=== PATIENT | female | born 1950 | race Caucasian/White ===

== ENCOUNTER → 2022-02-24 | Outpatient (CLI) | payer MEDICARE, OTHER, SELFPAY ==
--- NOTE | 2022-02-24 15:29 | MRI_ITS ---
STUDY: MRI RIGHT KNEE REASON FOR EXAM: Female, 71 years old. rule out medial meniscus tear -- has bakers cyst and medial knee pain Technologist Notes NO KNOWN INJURY. PAIN POSTERIOR KNEE AND MEDIAL SIDE OF KNEE X 3 MONTHS. XR RIGHT KNEE 12/19/21 TECHNIQUE: Standardized fat and water weighted pulse sequences were obtained in all 3 orthogonal planes. COMPARISON: X-ray of the right knee dated December 19, 2021 FINDINGS: There is complex tearing of the body of the medial meniscus and partial maceration. A large horizontal cleavage tear and diffuse intrasubstance degeneration is present across the full width of the posterior horn of the medial meniscus. A small para meniscal cyst is also present at the periphery and superior aspect of the posterior horn, originating from the torn meniscus. The anterior horn of the medial meniscus is intact. There is diffuse, high-grade near full-thickness articular cartilage loss of the medial femorotibial compartment. There is mild osteoarthritic spur formation of the medial knee compartment. Normal medial collateral ligamentous complex (MCL). Normal distal semimembranosus, gracilis and semitendinosus tendons. Normal lateral meniscus. There is diffuse, less than 50% thickness articular cartilage loss of the lateral femorotibial compartment. Normal lateral femoral condyle and tibial plateau. Normal proximal tibiofibular articulation. Normal lateral collateral (fibular) ligament. Normal popliteus tendon. Normal biceps femoris tendon. Normal anterior cruciate ligament (ACL). Normal posterior cruciate ligament (PCL). Normal congruent patellofemoral articulation. There is diffuse, less than 50% thickness articular cartilage loss of the patellofemoral compartment. Normal medial and lateral patellar retinaculum. Normal quadriceps tendon. Normal patellar tendon. Normal Hoffa''s fat pad. A small to moderate size joint effusion is present. A small to moderate size Ho''s cyst is also present measuring 5.38 cm. There is a small to moderate amount of leakage from the inferior aspect of the Ho''s cyst as well. The subcutaneous tissues around the knee joint are mildly edematous. MRI/Lower Ext Joint Only (Routine) IMPRESSION: 1. There is complex tearing of the body of the medial meniscus and partial maceration. A large horizontal cleavage tear and diffuse intrasubstance degeneration is present across the full width of the posterior horn of the medial meniscus. 2. High-grade cartilage loss in the medial compartment 3. Small to moderate size joint effusion and Ho''s cyst Electronically Signed: Tim Ibanez MD at 11:53 EDT ,
== END | disposition home or self-care (01) ==
LOC: MRI 15:29
PROVIDERS: Visit Provider Orthopaedic Surgery Sports Medicine
DX: S83.241A Other tear of medial meniscus, current injury, right knee, initial encounter (principal)
CPT/HCPCS: 73721

== ENCOUNTER 2022-04-20 08:57 | Emergency (ER) | payer MEDICARE, OTHER, SELFPAY ==
[2022-04-20 09:06] VITALS: BP 169/96; PULSE 71; RESP 18; TEMP 36.1; O2SAT 98
--- NOTE | 2022-04-20 09:37 | CT_ITS ---
INDICATION: left rib trauma EXAMINATION: CT CHEST WITHOUT CONTRAST - CT Chest W/O Contrast Injection TECHNIQUE: Helically acquired images were obtained of the chest. A radiation dose optimization technique was used for this scan. IV Contrast dosage and agent: None. COMPARISON: Limited comparison left clavicle x-ray, limited comparison MRI chest FINDINGS: LUNGS, PLEURA AND LARGE AIRWAYS: There is a pattern of areas of bronchiectasis with distal nodular densities in clusters. There is mucoid filling of a anterior aspect left lingula, superior aspect left lower lobe distal bronchial structures. There is distal inflammation and mucoid thickening and/or plugging. There are visualized there is a mucoid thickening within the right middle lobe and inferior aspect of the right lower lobe. There are clusters of nodular densities within the periphery of the right upper lobe and right middle lobe. No pleural effusion or thickening. No pneumothorax. THYROID: No thyroid lesions. HEART AND PERICARDIUM: Heart size is normal. No pericardial effusion. CORONARY ARTERIES: Coronary artery calcification VESSELS: There is partial calcification of the aorta. MEDIASTINUM AND ANAI: There is punctate calcification of the left greater than right mainstem bronchus. Esophagus is unremarkable. No hiatal hernia. UPPER ABDOMEN: No acute pathology. BONES: There is a nondisplaced acute appearing fracture of the posterior aspect of left rib 11. There is an irregular appearance of the periphery of the left rib 7. There is mild degenerative change of the thoracic spine. CT/Chest without Contrast IMPRESSION: There is a nondisplaced acute appearing fracture of the posterior aspect of left rib 11. There is an irregular appearance of the periphery of the left rib 7. There is no visualized pneumothorax. There are focal areas of bronchiectasis within the lungs with distal mucoid thickening and peribronchial inflammatory change with a nodular appearance. These are age indeterminant findings. Recommend correlation with clinical history. Potentially atypical infiltrates aspiration or potentially etiologies such as Mycobacterium avium cellulare could have this appearance. Given the multiple nodules recommend correlation with white count, recommend follow-up study as clinically appropriate or within 6 months to ensure stability. Electronically Signed: Amy Khan MD at 10:21 EST ,
--- NOTE | 2022-04-20 09:37 | ED.VIS.FALL ---
HPI HPI - Fall History of Present Illness Chief Complaint: Fall Informant: patient Narrative Narrative: 71-year-old female states that she was walking out of a store today when she slipped and fell on ice landing on her left flank. She notes pain there and anteriorly in her chest. She denies any hemoptysis. No hematuria. No loss of consciousness or other injuries noted. She has not taken anything for the pain. PFSH PFSH Medical History Alcohol use Former smoker Osteoarthritis of right knee Right knee pain Seizures Synovial cyst of popliteal space [Ho], right knee Tear of medial meniscus of right knee Wears glasses Home Medications alendronate 10 mg tablet 10 mg PO CRAFT 12/19/21 [History Last Taken Unknown] calcium carbonate 500 mg calcium (1,250 mg) chewable tablet (Calcium 500) 500 mg PO DAILY 12/19/21 [History Last Taken Unknown] glucosamine-chondroitin 500 mg-400 mg capsule 1 cap PO DAILY 12/19/21 [History Last Taken Unknown] mecobalamin (vitamin B12) 5,000 mcg disintegrating tablet 5,000 mcg PO DAILY 12/19/21 [History Last Taken Unknown] vitamins A,C,C-gaup-xeriyy 14,320 unit-226 mg-200 unit capsule (PreserVision AREDS) 1 cap PO BID 12/19/21 [History Last Taken Unknown] hydrocodone-acetaminophen 5-325mg 5mg-325mg 1 tab PO Q6H PRN PRN Pain 3 days #12 TABLETS 04/20/22 [Rx Last Taken Unknown] Allergy/AdvReac Type Severity Reaction Status Date / Time No Known Allergies Allergy Unverified 04/20/22 09:06 Family History Mother Hypertension CVA (cerebral vascular accident) Surgical History History of hand surgery Social History household members: spouse Smoking Status: Former smoker alcohol intake: current ROS ROS ED Constitutional Constitutional ED: Denies chills or weight loss Eyes Eyes: Denies change in vision or diplopia ENT ENT ED: Denies ear pain, rhinorrhea or sore throat Cardiovascular Cardiovascular: Reports chest pain; Denies orthopnea, palpitations or racing heartbeat Respiratory/Chest Respiratory/Chest: Denies cough, dyspnea or orthopnea Gastrointestinal Gastrointestinal: Denies abdominal pain, diarrhea, nausea or vomiting Genitourinary Genitourinary ED: Denies dysuria, hematuria or urinary frequency Musculoskeletal Musculoskeletal: Denies arthralgias or myalgias Integumentary Denies abscess or rash Neurologic Neurologic: Denies headache(s) or weakness Psychiatric Psychiatric: Denies anxiety, depression, suicidal ideation or suicidal thoughts Endocrine Endocrinology: Denies polydipsia, polyphagia or polyuria Allergic/Immunologic Allergic/Immunologic ED: Denies mouth swelling, tongue swelling or urticaria EXAM Physical Exam Const Vital Signs: 04/20/22 09:06 04/20/22 09:25 Temperature 97.0 F L Temperature Source Temporal Pulse Rate 71 Respiratory Rate 18 Respiratory Effort Normal Blood Pressure 169/96 H Blood Pressure Mean 120 Pulse Ox 98 Oxygen Delivery Method Room Air Positive well nourished and well developed General Appearance ED: well developed HEENT Reports normocephalic, head/scalp atraumatic and moist mucous membranes Eyes PERRL and EOMs intact bilaterally Neck no lymphadenopathy, supple and no JVD Chest Wall Chest Narrative: Patient reports tenderness over the lower 4 left ribs posteriorly. She notes tenderness anteriorly over the costochondral junction on the left lower border. No bony crepitance is felt no ecchymosis is Resp normal respiratory effort and clear to auscultation bilaterally Cardio regular rate, regular rhythm and no murmurs GI normal to inspection, nondistended, normoactive bowel sounds and non-tender Palpation: soft Back/Spine no CVA tenderness and normal ROM Extremity normal to inspection General Extremety ED: Negative for edema General Extremity: Negative for edema Neuro oriented x3 and CN's II-XII intact bilaterally Sensorium / Orientation: alert Motor Exam: strength 5/5 throughout Psych mental status grossly normal Mood & Affect: Negative for depressed or tearful Skin no rashes or lesions noted and no wounds MDM MDM MDM Narrative Medical decision making narrative: CT of the chest was obtained which demonstrates a nondisplaced fracture of rib 11 on the left. There are other findings which I would refer to the radiologist read for. These were discussed with the patient. Was recommended that she get a follow-up CT in 6 months Radiography Diagnostic Testing: Clinical Impression(s) from Imaging Studies Chest CT 04/20/22 09:37 IMPRESSION: There is a nondisplaced acute appearing fracture of the posterior aspect of left rib 11. There is an irregular appearance of the periphery of the left rib 7. There is no visualized pneumothorax. There are focal areas of bronchiectasis within the lungs with distal mucoid thickening and peribronchial inflammatory change with a nodular appearance. These are age indeterminant findings. Recommend correlation with clinical history. Potentially atypical infiltrates aspiration or potentially etiologies such as Mycobacterium avium cellulare could have this appearance. Given the multiple nodules recommend correlation with white count, recommend follow-up study as clinically appropriate or within 6 months to ensure stability. Electronically Signed: Amy Khan MD at 10:21 EST , Discharge Plan Triage Chief Complaint: Fall ED Provider: Teodoro Chris Dx/Rx/DC Orders Clinical Impression: Fall, Left rib fracture, Acute chest wall pain Instructions: ED Rib Fracture Prescriptions: New hydrocodone-acetaminophen [hydrocodone-acetaminophen] 5-325 mg tablet 1 tab PO Q6H PRN PRN (Reason: Pain) 3 Days Qty: 12 0RF No Action alendronate 10 mg tablet 10 mg PO CRAFT calcium carbonate [Calcium 500] 500 mg calcium (1,250 mg) tablet,chewable 500 mg PO DAILY glucosamine-chondroitin 500-400 mg capsule 1 cap PO DAILY Rx Instructions: give with meal/snack mecobalamin (vitamin B12) 5,000 mcg tablet,disintegrating 5,000 mcg PO DAILY PreserVision AREDS 14,320-226-200 wzba-fj-wmek capsule 1 cap PO BID Primary Care Provider: Alondra Pelletier NP Referrals: Care Physician,No Primary [Non-Staff] - Activity Restrictions/Additional Instructions: Please follow-up with primary care in 1 to 2 weeks or earlier if need be Please take a deep breath every 30 minutes to help keep pneumonia from forming You need to speak with your orthopedic surgeon to find out if this will affect your surgery date Disposition Disposition: Home, Self Care
[2022-04-20] MEDS: HYDROcodone Bitartrate/Apap 5/325 Tablet PO (10:07)
[2022-04-20 11:11] VITALS: BP 130/80; PULSE 70; RESP 16; O2SAT 98
--- NOTE | 2022-04-23 16:15 | CASEMGMT ---
INCIDENTAL FINDINGS F/U -Per [facility] report 04/20/22: CT/Chest without Contrast IMPRESSION: There is a nondisplaced acute appearing fracture of the posterior aspect of left rib 11. There is an irregular appearance of the periphery of the left rib 7. There is no visualized pneumothorax. There are focal areas of bronchiectasis within the lungs with distal mucoid thickening and peribronchial inflammatory change with a nodular appearance. These are age indeterminant findings. Recommend correlation with clinical history. Potentially atypical infiltrates aspiration or potentially etiologies such as Mycobacterium avium cellulare could have this appearance. Given the multiple nodules recommend correlation with white count, recommend follow-up study as clinically appropriate or within 6 months to ensure stability. -TC to pt to discuss the above. Pt stated she also had surgery on her knee today. Pt denied needing any assistance schedule appointments. Pt will contact PCP to schedule an appointment.
== END 2022-04-20 11:15 | disposition home or self-care (01) ==
PROVIDERS: Emergency Provider Emergency Medicine; PCP Registered Nurse; Visit Provider Emergency Medicine
DX: S22.32XA Fracture of one rib, left side, initial encounter for closed fracture (principal); Z87.891 Personal history of nicotine dependence; R07.89 Other chest pain; W00.0XXA Fall on same level due to ice and snow, initial encounter
CPT/HCPCS: 71250; 99284; A4216

== ENCOUNTER 2022-04-23 05:46 | Day surgery (SDC) | payer MEDICARE, OTHER, SELFPAY ==
[2022-04-23] VITALS (8 sets, daily range): BP systolic 128–147; BP diastolic 64–83; PULSE 80–99; RESP 18; TEMP 36.6–36.9; O2SAT 94–99; BMI 19.3
[2022-04-23] MEDS: Lactated Ringers 1,000 ML 15 ML IV (06:17)
--- NOTE | 2022-04-23 07:24 | HP.PCM_ITS ---
HPI - General HPI Narrative MICHAEL MCKEON, is a 71 F who presents FOR RIGHT KNEE scope, debridement, partial MM. Wishes to proceed. RAB discussed, right knee marked. No changes to H and P. Narcotic counselling done. post op drsg instructions give to her and support person. MR#: [id number] Acct: [id number] Name:MICHAEL HUANG Rep #: [id number] : 1950 ? ? Provider: Dr. Benjamín Green MD Age/Sex:? 71/F ? ? [place] [facility] [email or web address] Status: Signed Intake Intake Visit Reasons:?right knee Chief Complaint: right knee pain Allergies No Known Allergies Allergy (Unverified 03/03/22 14:00) Medications alendronate 10 mg tablet 10 mg PO DAILY 12/19/21 [History Confirmed 03/03/22] calcium carbonate 500 mg calcium (1,250 mg) chewable tablet (Calcium 500) 500 mg PO DAILY 12/19/21 [History Confirmed 03/03/22] glucosamine-chondroitin 500 mg-400 mg capsule 1 cap PO DAILY 12/19/21 [History Confirmed 03/03/22] mecobalamin (vitamin B12) 5,000 mcg disintegrating tablet mcg PO 12/19/21 [History Confirmed 03/03/22] vitamins A,C,X-fgpk-nupbap 14,320 unit-226 mg-200 unit capsule (PreserVision AREDS) 1 cap PO BID 12/19/21 [History Confirmed 03/03/22] PFSH Medical History?(Updated 03/03/22 @ 14:24 by Benjamín Green MD) Osteoarthritis of right knee Right knee pain Synovial cyst of popliteal space [Ho], right knee Tear of medial meniscus of right knee Family History? Mother Hypertension CVA (cerebral vascular accident) Social History? household members:? spouse Smoking Status:? Former smoker alcohol intake:? current HPI right knee Details: Parts of this documentation were recorded by a scribe, this documentation accurately reflects the service provided and the decisions made by me, Dr. Benjamín Green MD 03/03/22 1306. MICHAEL MCKEON is a 71 year old F here today for follow-up right knee MRI.? She did have some relief with a cortisone injection a little over 2 months ago now but the pain came back its mostly on the medial side aches finds that she is having some mechanical symptoms.? A little bit of soreness in the posterior medial aspect of the knee where there is some swelling consistent with a Ho's cyst. Ortho Exam General General: Yes no acute distress Neurologic: Yes alert and Yes oriented x3 Psychologic: Yes reasonable and appropriate Right Knee Skin/Wound: Yes CDI, No erythema, No ecchymosis and Yes swelling Knee ROM: Yes ROM-Flexion 0-140 Examination: Yes Med jt line tenderness, No Lat jt line tenderness, No TTP inf pole patella, No Crepitus, Yes Pain with flexion and No Pain with extention Quad Atrophy: No Patella Translation: 2 Patellar Tilt Normal: Yes Patella Grind: No KNEE: She has posterior medial swelling consistent with a Ho's cyst but her pain is mostly point tender at the medial joint line of the left knee.? There is some mild diffuse soft tissue swelling but no redness or warmth.? Perhaps a trace effusion. Left Knee Patella Translation: 2 Supplemental Info MR#:? [id number] Acct: [id number] Name:? MICHAEL MCKEON Rep #: [id number] :?? 1950 F 71 ? From:? ? Tim Ibanez MD PCP: Care Physician,No Primary ? Status: REG CLI Study: Lower Ext Joint Only (Routine) ? Date of Exam: 02/24/22 Exam# [id number] ? Ordering Dr:? Benjamín Green MD STUDY:? MRI RIGHT KNEE REASON FOR EXAM:? Female, 71 years old.? rule out medial meniscus tear -- has bakers cyst and medial knee pain Technologist Notes NO KNOWN INJURY. PAIN POSTERIOR KNEE AND MEDIAL SIDE OF KNEE X 3 MONTHS. XR RIGHT KNEE 12/19/21 TECHNIQUE:? Standardized fat and water weighted pulse sequences were obtained in all 3 orthogonal planes. COMPARISON:? X-ray of the right knee dated December 19, 2021 FINDINGS: There is complex tearing of the body of the medial meniscus and partial maceration.? A large horizontal cleavage tear and diffuse intrasubstance degeneration is present across the full width of the posterior horn of the medial meniscus.? A small para meniscal cyst is also present at the periphery and superior aspect of the posterior horn, originating from the torn meniscus.? The anterior horn of the medial meniscus is intact.? There is diffuse, high-grade near full-thickness articular cartilage loss of the medial femorotibial compartment.? There is mild osteoarthritic spur formation of the medial knee compartment. Normal medial collateral ligamentous complex (MCL).? Normal distal semimembranosus, gracilis and semitendinosus tendons. Normal lateral meniscus.? There is diffuse, less than 50% thickness articular cartilage loss of the lateral femorotibial compartment.? Normal lateral femoral condyle and tibial plateau. Normal proximal tibiofibular articulation.? Normal lateral collateral (fibular) ligament.? Normal popliteus tendon.? Normal biceps femoris tendon. Normal anterior cruciate ligament (ACL).? Normal posterior cruciate ligament (PCL). Normal congruent patellofemoral articulation.? There is diffuse, less than 50% thickness? articular cartilage loss of the patellofemoral compartment. Normal medial and lateral patellar retinaculum. Normal quadriceps tendon.? Normal patellar tendon.? Normal Hoffa''s fat pad. A small to moderate size joint effusion is present.? A small to moderate size Ho''s cyst is also present measuring 5.38 cm.? There is a small to moderate amount of leakage from the inferior aspect of the Ho''s cyst as well.? The subcutaneous tissues around the knee joint are mildly edematous. MRI/Lower Ext Joint Only (Routine) IMPRESSION: 1.? There is complex tearing of the body of the medial meniscus and partial maceration.? A large horizontal cleavage tear and diffuse intrasubstance degeneration is present across the full width of the posterior horn of the medial meniscus. 2.? High-grade cartilage loss in the medial compartment 3.? Small to moderate size joint effusion and Ho''s cyst ? Electronically Signed: Tim Ibanez MD at 11:53 EDT Reading Location ID and State: [address] [place] [address] , Service support? , ? I reviewed the radiographs and MRI findings and I concur with the report. Coding Level of Care Code Off vis,est,level 4 Diagnoses Tear of medial meniscus of right knee? S83.241A Osteoarthritis of right knee? M17.11 Right knee pain? M25.561 Synovial cyst of popliteal space [Ho], right knee? M71.21 Time Spent (min) 30 Assessment and Plan Assessment and Plan (1) Tear of medial meniscus of right knee: ?Status:?Acute ?Plan: 71-year-old female with degenerative medial meniscus tear as well as a Ho's cyst tricompartmental osteoarthritis with diffuse soft tissue swelling of the knee.? She has now tried a number of and nonsurgical means of treating this including rest ice anti-inflammatories as well as intra-articular cortisone injections.? We discussed other non surgical as well as possible surgical interventions for this which include right knee arthroscopy partial medial meniscectomy and debridement vs arthroplasty.? This may not rid her of all her pain and discomfort as I cannot formally address the osteoarthritis which is high-grade in the medial compartment with arthroscopy alone, as well as may or may not help for the Ho's cyst although doing a partial medial meniscectomy in this area and debridement may help the cyst close and prevent recurrence as well as treating the cyst however this is somewhat unreliable.? I think performing the partial medial meniscectomy may help for her mechanical symptoms and medial joint line tenderness although I have warned her that this is not a guarantee.? If she fails this next surgical option would be to consider total knee arthroplasty.? That being said although debridement and partial meniscectomy in cases of arthritis is controversial, in recent literature this may help delay the need for total knee arthroplasty by 1 to 2 years and I think is reasonable in this case.? She wished to proceed and we signed the consent form for surgery -right knee arthroscopy, partial medial meniscectomy, debridement. Pros and cons risks and benefits were discussed with the patient including but not limited to infection, pain, stiffness, bleeding, damage to surrounding structures, neurovascular injury, recurrence or retear, failure or wear of hardware or fixation, instability, fracture, deep vein thrombosis and pulmonary embolism, anesthetic risks, patient dissatisfaction, need for further surgery and other risks.? Patient understood and wished to proceed with surgery, and signed the informed consent documentation. [facility] Medical History Alcohol use Former smoker Osteoarthritis of right knee Right knee pain Seizures Synovial cyst of popliteal space [Ho], right knee Tear of medial meniscus of right knee Wears glasses Home Medications alendronate 10 mg tablet 10 mg PO CRAFT 12/19/21 [History Last Taken 04/22/22] calcium carbonate 500 mg calcium (1,250 mg) chewable tablet (Calcium 500) 500 mg PO DAILY 12/19/21 [History Last Taken 04/22/22] glucosamine-chondroitin 500 mg-400 mg capsule 1 cap PO DAILY 12/19/21 [History Last Taken 04/22/22] mecobalamin (vitamin B12) 5,000 mcg disintegrating tablet 5,000 mcg PO DAILY 12/19/21 [History Last Taken 04/22/22] vitamins A,C,H-ctzw-czsyuy 14,320 unit-226 mg-200 unit capsule (PreserVision AREDS) 1 cap PO BID 12/19/21 [History Last Taken 04/22/22] hydrocodone-acetaminophen 5-325mg 5mg-325mg 1 tab PO Q6H PRN PRN Pain 3 days #12 TABLETS 04/20/22 [Rx Last Taken Unknown] Allergy/AdvReac Type Severity Reaction Status Date / Time No Known Allergies Allergy Unverified 04/20/22 09:06 Family History Mother Hypertension CVA (cerebral vascular accident) Surgical History History of hand surgery Social History household members: spouse Smoking Status: Former smoker alcohol intake: current Vital Signs Vital Signs Vital Signs: 04/23/22 06:18 04/23/22 06:18 Temperature 98.5 F Temperature Source Temporal Pulse Rate 99 Respiratory Rate 18 Respiratory Pattern Normal Blood Pressure 135/80 H Blood Pressure Mean 98 Blood Pressure Source Monitor Blood Pressure Position Semi-Fowlers Blood Pressure Location Right Arm Pulse Ox 97 Oxygen Delivery Method Room Air Weight Weight: 99 lb Body Mass Index (BMI) 19.3
[2022-04-23] MEDS: Cefazolin 2 GM in 0.9% Normal Saline 100 ML IV (07:25)
[2022-04-23] MEDS: Epinephrine (1 mg/ml) 1 MG/ML VIAL (07:49)
--- NOTE | 2022-04-23 08:15 | PCM.OPRPT ---
Problems Associated Problem List Diagnoses (1) Tear of medial meniscus of right knee: (2) Osteoarthritis of right knee: (3) Right knee pain: Report of Operation Date of Procedure: 04/23/22 Pre-Operative Diagnosis: Right knee medial meniscus tear and osteoarthritis and Ho's cyst. Post-Operative Diagnosis: Same Surgery/Procedure Performed:: Right knee arthroscopy, debridement, partial medial meniscectomy Description of Surgical Findings:: medial meniscus degenerative tear, grade 2 OA medial compartment. Surgeon: Benjamín Green Type of Anesthesia: General and Local Anesthesiologist: Aj Jaimes Estimated Blood Loss (mL): 10 Description of Procedure: Patient was brought to the operating room theater. Placed supine on the operating room table. All bony prominences appropriately padded. SCD on the nonoperative side. 2 g IV Ancef administered prior to the start of the procedure. General anesthesia induced. Stress positioner for the patient's right lower extremity. Tourniquet applied to the right thigh appropriately padded. Right lower extremity prepped and draped in the usual sterile fashion with chlorhexidine-based prep solution allowing over 3 minutes drying time prior to draping. Preoperative timeout performed to confirm the site patient and the surgery. Began by making standard anterolateral and anteromedial arthroscopy portals. I examined the full intra-articular extent of the knee. No loose bodies gutters normal. Patellofemoral joint some mild grade 1 osteoarthritis possibly grade 2 along the trochlea undersurface of the patella normal. Minor superficial fraying along the edges gently debrided as well as a small localized approximately 5 x 5 mm area on the medial femoral condyle debrided to smooth stable margins. Grade 1-2 chondrosis of the medial compartment on both the femoral and tibial sides again gently debrided to smooth margins. There is a macerated degenerative tear along the mid aspect to posterior horn area of the medial meniscus again debrided took away about 10 to 15% overall surface area of the meniscus to stable margins and debrided along the posterior capsule near the area of the Ho's cyst. Took arthroscopy pictures throughout. Lateral compartment was entered. Cartilage was normal normal meniscus stable and solid to probing. ACL and PCL appeared normal. Arthroscope withdrawn case terminated tourniquet let down meticulous hemostasis achieved. 3-0 Monocryl to close the portals. 10 cc of quarter percent plain bupivacaine instilled around the portal sites. Skin cleaned with wet and dry dressing followed by Acacian of Steri-Strips Adaptic 4 x 4 gauze ABD pad dressings and a sterile 6 inch Shailesh bandage. Patient woken up with her general anesthetic transferred off the operating room table taken postanesthetic care unit in stable condition. All sponge and monitoring counts were correct no complications. Plan to the patient weightbearing as tolerated on crutches discharged home per day surgery criteria. Complications none Admit VTE Documentation VTE Present on Admission: No VTE Mechan Device Prophylaxis: SCD's Reason prophylaxis not ordered:: Treatment Not Indicated Procedures Musculoskeletal 20xxx-29xxx: Other Procedure See Report
--- NOTE | 2022-04-23 08:25 | EX.PCM.DISCH ---
Discharge Instructions Diet Discharge Diet: No restrictions Activity Discharge Activity: Return to Normal Activity and Use Crutches Weight Bearing Status: Weight bearing as tolerated Dressing / Incision Call your doctor if your incision/area has: Continuous Slow Oozing, Sudden Increased Bleeding, Increased Pain/ Swelling, Increased Redness, Foul Smelling Discharge and Swelling at the incision site Remove Dressing in: leave in place till F/U Cleanse incision/area with: Do not get Incision Wet Follow Up Care Please Follow Up With: Benjamín Green MD When: 2 days if able, otherwise 2 weeks Test Results: Test results from this visit will be discussed in further detail at your follow-up appointment, if applicable. Discharge Plan Admission Attending Provider: Benjamín Green Primary Care Provider: Alondra Pelletier NP Discharge Orders/Prescriptions Prescriptions: New oxycodone-acetaminophen [Endocet] 5-325 mg tablet 1 tab PO Q4H MDD 6 PRN (Reason: pain) 7 Days Qty: 20 0RF No Action alendronate 10 mg tablet 10 mg PO CRAFT calcium carbonate [Calcium 500] 500 mg calcium (1,250 mg) tablet,chewable 500 mg PO DAILY glucosamine-chondroitin 500-400 mg capsule 1 cap PO DAILY Rx Instructions: give with meal/snack mecobalamin (vitamin B12) 5,000 mcg tablet,disintegrating 5,000 mcg PO DAILY PreserVision AREDS [id number] usnv-jw-hdnn capsule 1 cap PO BID hydrocodone-acetaminophen [hydrocodone-acetaminophen] 5-325 mg tablet 1 tab PO Q6H PRN PRN (Reason: Pain) 3 Days Qty: 12 0RF Referrals / Follow Up: Benjamín Green MD [Med Staff - Active Staff] - Alondra Pelletier NP, GEOSCIENCES PROFESSOR-C [Primary Care Provider] - Disposition Disposition (needs filled in before D/C Order can be placed): Home, Self Care
== END 2022-04-23 10:44 | disposition home or self-care (01) ==
LOC: SDC 05:46 → AC 05:46
PROVIDERS: PCP Registered Nurse; Referring Provider Orthopaedic Surgery Sports Medicine; Visit Provider Orthopaedic Surgery Sports Medicine
PROC: (CPT 29870; principal; 2022-04-23 07:10)
DX: S83.231A Complex tear of medial meniscus, current injury, right knee, initial encounter (principal); M17.11 Unilateral primary osteoarthritis, right knee; M71.21 Synovial cyst of popliteal space [Baker], right knee; X58.XXXA Exposure to other specified factors, initial encounter; Z79.83 Long term (current) use of bisphosphonates; Z79.899 Other long term (current) drug therapy; Z87.891 Personal history of nicotine dependence
CPT/HCPCS: 29881; 01400; J7120; J2405

== ENCOUNTER 2022-06-04 08:00 | Outpatient (RCR) | payer MEDICARE, OTHER, SELFPAY ==
--- NOTE | 2022-05-13 08:18 | HP.PTEVAL ---
Patient's Visit Information MICHAEL MCKEON is a 71 year old F referred to Physical Therapy by Dr. Benjamín Green MD with a diagnosis of OTHER TEAR OF MEDIAL MINISCUS ,CURRENT INJURY RIGHT. Date of Evaluation: 05/13/22 Physical Therapist: Rohan Colby, PT, Cert MDT, OCS - Visit Plan Frequency: 2x /Week Duration: 4 Weeks Plan: PT INTERVETIONS ROM/FLEXABLITY RIGHT KNEE , STRENGTHENING QUADS/HAMS/HIP , AND FUNCTIONAL STRENGTHENING - Subjective This patient seen physical therapy with medial meniscectomy arthroscopic right knee. Patient had arthroscopic right knee Apr 23 . Patient was d/c DOS with crutches. Patient had MRI showed medial torn meniscus. Patient had some edema. Patient seen DR Green May 06 recommended. Patient knee meniscus tear was gradually . Patient has some difficulty with stairs and squatting/kneeling but improving. Patient sleeping good. Patient denies paresthesia/tingling. Patient has no edema. Patient condition affects QOL and function. SOCAIL: . 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 GAIT: reciprocal pattern. NEURO: denies paresthesia/tingling. AROM : supine knee flexion 0-135 degrees. MMT: ( peak force) quads 22.5,hamstrings 23.6 ,hip flexion 24.3 ,hip abduction 17.8 knee. STAIRS: alternating with rail - Special Tests R Knee Valgus - MCL: Negative R Knee Varus - LCL: Negative - Balance/Special Test Scores Lower Extremity Functional Score: 47 - Goals Goal 1:: I with HEP for right arthroscopic Goal Time Frame: 4-6 Weeks Goal 2:: Patient to [id number] % improvement with improved function with ADLS' Goal Time Frame: 4-6 Weeks Goal 3:: Patient to improve AROM symmetrical right > to left to ascend /descend alternating Goal Time Frame: 4-6 Weeks Goal 4:: Patient lorie improve peak force quads/hams by 10 to improve function Goal Time Frame: 4-6 Weeks Goal 5:: Patient to improve LFES score by 5 points to function with gait and ADLS Goal Time Frame: 4-6 Weeks Goal Time Frame: 4-6 Weeks - Rehabilitation Potential Physical Therapy Diagnosis: This patient underwent s/p right knee with decrease ROM and strength impairs function with gait and ADL's Rehabilitation Potential: Good - Anticipated Interventions Patient/Client Instruction: Educate patient on: Condition, Plan of Care For the Purpose of:: To decrease pain, To increase ROM, To improve muscle performance and motor function, To improve ability to perform ADL's, To increase tolerance to activity/condition/position, To improve ability of physical actions for home/community/work/leisure, To improve health of tissue, To decrease soft tissue restriction, To increase flexibility/ROM, To improve endurance Therapeutic Exercise to Include: Strength training, Power training, Balance training, Postural training, Flexibilty training, Active ROM Comment: QUADS/HAMS/HIP For the Purpose of:: To decrease pain, To increase ROM, To improve muscle performance and motor function, To improve ability to perform ADL's, To increase tolerance to activity/condition/position, To improve ability of physical actions for home/community/work/leisure, To improve health of tissue, To decrease soft tissue restriction, To increase flexibility/ROM, To improve endurance, To improve balance Thank you for the opportunity to evaluate your patient. For Medicare and Medicare HMO plans, please review the plan of care and approve it. It will need to be FAXED BACK to us at [phone] for Medicare purposes. For Medicare only, by signing this I certify the plan of care. Please let me know if there are questions or concerns regarding this plan of care. Physician Signature: Date:
--- NOTE | 2022-06-04 08:25 | HP.PTDCSUM ---
It has been my pleasure to treat MICHAEL MCKEON referred by Dr. Benjamín Green MD, with the diagnosis of OTHER TEAR OF MEDIAL MINISCUS ,CURRENT INJURY RIGHT for a total of 8 visit(s). Discharge Date: 06/04/22 Please see the following information for a summary of their discharge status. Subjective: Doing well. Seen DR doing well Objective/Function: MMT: 5/5. GAIT: RECIPROCAL PATTERN. AROM: 0-140 DEGREES SUPINE FLEXION Goal 1:: I with HEP for right arthroscopic Goal Progress: Goal Met Goal 2:: Patient to [id number] % improvement with improved function with ADLS' Goal Progress: Goal Met Goal 3:: Patient to improve AROM symmetrical right > to left to ascend /descend alternating Goal Progress: Goal Met Goal 4:: Patient lorie improve peak force quads/hams by 10 to improve function Goal Progress: Goal Met Goal 5:: Patient to improve LFES score by 5 points to function with gait and ADLS Goal Progress: Goal Met Plan: D/C Discharge Comments: HEP If there are questions or concerns regarding this patient's physical therapy, please feel free to call me at [phone]. Thank you for the referral of this patient. Sincerely, Rohan Colby, PT, Cert MDT, OCS Balance/Gait/Functional tests - Balance/Special Test Scores Lower Extremity Functional Score: 68
== END 2022-06-04 19:00 | disposition home or self-care (01) ==
LOC: PT 08:00
PROVIDERS: PCP Registered Nurse; Referring Provider Orthopaedic Surgery Sports Medicine; Visit Provider Orthopaedic Surgery Sports Medicine
DX: S83.241D Other tear of medial meniscus, current injury, right knee, subsequent encounter (principal)
CPT/HCPCS: 97110; 97162

== ENCOUNTER → 2023-03-17 | Outpatient (CLI) | payer MEDICARE, OTHER, SELFPAY ==
--- NOTE | 2023-03-17 14:55 | CT_ITS ---
STUDY: CT ABDOMEN AND PELVIS WITH CONTRAST REASON FOR EXAM: Female, 72 years old. Chronic bladder pain, Unspecified abdominal pain RADIATION DOSAGE (If Supplied By Facility): CTDIvol = ( 7.24 ) mGy, DLP = ( 490.83 ) mGycm TECHNIQUE: Transaxial images were obtained from the dome of the diaphragm to the symphysis pubis with oral contrast. Oral and amp; IV Readi-CAT and amp; 75mL Isovue-300 was administered. Sagittal and coronal images were reconstructed. Individualized dose optimization techniques were used for this CT. COMPARISON: None. FINDINGS: Mild increased markings in the anterior aspect of the right middle lobe as well as the lingular segment of the left upper lobe suggestive of scarring. The visualized portions of the heart are within normal limits. Normal liver. Normal gallbladder and extrahepatic biliary system. Normal spleen. Normal pancreas. Normal bilateral adrenal glands. Normal right kidney. Normal left kidney. Normal visualized stomach. Normal small intestine. There are multiple colonic diverticula consistent with diverticulosis. Large amount of fecal material is seen in the colon. The appendix is visualized and appears normal. There is diffuse atherosclerotic calcification of the abdominal aorta, without a demonstrated aneurysm. Normal inferior vena cava. Normal retroperitoneum. Normal urinary bladder. Normal abdominal wall. Disc space narrowing with spondylosis and subchondral sclerosis at the L3-L4 level. Loss of the normal lumbar lordosis. CT/Abdomen/Pelvis WITH Contrast IMPRESSION: Large amount of fecal material is seen in the colon. Electronically Signed: Renny Galeas MD at 15:25 EDT ,
[2023-03-17 15:18] LABS: CREATININE FINGERSTICK < 0.9 mg/dL (0.55-1.02); EGFR FINGERSTICK > 60.0000 mL/min (>60)
== END | disposition home or self-care (01) ==
LOC: CT 14:52
PROVIDERS: PCP Nurse Practitioner; Referring Provider Urology; Visit Provider Urology
DX: R39.82 Chronic bladder pain (principal); R10.9 Unspecified abdominal pain
CPT/HCPCS: 74177; Q9967

== ENCOUNTER → 2023-06-01 | Outpatient (CLI) | payer MEDICARE, OTHER, SELFPAY | END | disposition home or self-care (01) | LOC: LABSPEC 14:55 | PROVIDERS: PCP Nurse Practitioner; Referring Provider Otolaryngology Otolaryngology/Facial Plastic Surgery; Visit Provider Otolaryngology Otolaryngology/Facial Plastic Surgery | DX: J32.8 Other chronic sinusitis (principal) | CPT/HCPCS: 87070; 87205 ==

== ENCOUNTER → 2023-06-18 | Outpatient (CLI) | payer MEDICARE, OTHER, SELFPAY ==
--- NOTE | 2023-06-18 13:20 | CT_ITS ---
EXAM: CT MAXILLOFACIAL SINUSES WITHOUT INTRAVENOUS CONTRAST CLINICAL INDICATION: Other chronic sinusitis TECHNIQUE: Helically acquired images were obtained of the maxillofacial sinuses without intravenous contrast. This CT exam was performed using one or more of the following dose reduction techniques: automated exposure control, adjustment of the mA and/or kV according to patient size, and/or use of iterative reconstruction technique. COMPARISON: No relevant prior studies available. FINDINGS: MAXILLARY SINUSES: There is complete opacification of the left maxillary sinus. SPHENOID SINUSES: Clear. FRONTAL SINUSES: Left frontal sinus opacification. ETHMOID AIR CELLS: Left ethmoid air cell opacification. NASAL CAVITY/SEPTUM: Nasal septum is deviated to the right of midline. Nasal turbinates are unremarkable. There is obstruction of the left anterior ostiomeatal unit. ORBITS: Normal. DENTAL: Prominent periodontal changes noted to involve the right mandibular canine and first molar and left lateral mandibular incisor. CT/Sinus/Facial Bone IMPRESSION: 1. Left paranasal sinusitis. 2. Periodontal disease. Electronically Signed: Panchito Patterson MD at 14:42 EST ,
== END | disposition home or self-care (01) ==
PROVIDERS: PCP Nurse Practitioner; Referring Provider Otolaryngology Otolaryngology/Facial Plastic Surgery; Visit Provider Otolaryngology Otolaryngology/Facial Plastic Surgery
DX: J32.8 Other chronic sinusitis (principal)
CPT/HCPCS: 70486

== ENCOUNTER → 2023-08-03 | Outpatient (CLI) | payer MEDICARE, OTHER, SELFPAY ==
--- NOTE | 2023-08-03 11:28 | US_ITS ---
HISTORY: right knee bakers cyst evaluation TECHNIQUE: Routine and color duplex imaging of the right knee. 31 images. COMPARISON: MR 02/24/2022. FINDINGS: 6 mm x 1.7 cm x 2.7 cm simple cyst in the popliteal fossa, previously 1.6 x 2.7 x 5.3 cm. US/Other Unlisted US Procedure IMPRESSION: Small right Ho''s cyst, decreased in size from prior. Electronically Signed: Alma Moore MD at 11:33 EDT ,
== END | disposition home or self-care (01) ==
LOC: US 11:26
PROVIDERS: PCP Nurse Practitioner; Referring Provider Orthopaedic Surgery Sports Medicine; Visit Provider Orthopaedic Surgery Sports Medicine
DX: M71.21 Synovial cyst of popliteal space [Baker], right knee (principal)
CPT/HCPCS: 76999

== ENCOUNTER → 2023-08-28 | Outpatient (CLI) | payer MEDICARE, OTHER, SELFPAY ==
--- NOTE | 2023-08-28 08:43 | US_ITS ---
STUDY: SUPERFICIAL ULTRASOUND - POPLITEAL FOSSA. REASON FOR EXAM: Female, 72 years old. US aspiration bakers cyst of the right knee TECHNIQUE: A superficial ultrasound was performed with real-time and static silvestre-scale imaging. COMPARISON: Comparison is made with prior study dated August 03, 2023. FINDINGS: The popliteal fossa was examined with ultrasound. No fluid collection is seen at this time. US/Ext Non Vasc Limited/Soft Tiss IMPRESSION: No fluid collection is seen at this time in the popliteal fossa. Electronically Signed: Renny Galeas MD at 10:16 EDT ,
== END | disposition home or self-care (01) ==
LOC: US 08:43
PROVIDERS: PCP Nurse Practitioner; Referring Provider Orthopaedic Surgery Sports Medicine; Visit Provider Orthopaedic Surgery Sports Medicine
DX: M71.21 Synovial cyst of popliteal space [Baker], right knee (principal)
CPT/HCPCS: 76882

== ENCOUNTER → 2024-03-21 | Outpatient (CLI) | payer MEDICARE, OTHER, SELFPAY ==
--- NOTE | 2024-03-21 07:13 | EKG12_ITS ---
Test Reason : PRE OP Blood Pressure : */* mmHG Vent. Rate : 61 BPM Atrial Rate : 61 BPM P-R Int : 150 ms QRS Dur : 82 ms QT Int : 408 ms P-R-T Axes : 85 86 83 degrees QTcB Int : 410 ms Normal sinus rhythm possible Biatrial enlargement borderline Confirmed by Juan Carlos Rader ([id number]), editorial director LAY ROBERSON ([id number]) on 03/22/2024 9:13:57 AM Referred By: Buddy Shelton Confirmed By: Juan Carlos Rader
[2024-03-21 07:48] LABS: Hematocrit 43.9 % (37-47); Hemoglobin 14.5 g/dL (12.0-15.0); Mean Corpuscular Hgb 30.3 pg (27.0-32.0); Mean Corpuscular Volume 91.6 fL (81-99); Platelet Count 225 K/mm3 (150-450); RBC Distribution Width CV 13.5 % (11.6-14.6); RBC Distribution Width SD 46.3 fl (35.1-43.9); Red Blood Count 4.79 M/mm3 (4.2-5.4); White Blood Count 4.4 K/mm3 (4.4-11.0)
[2024-03-21 08:22] LABS: Anion Gap 6 (5-15); BUN 15 mg/dL (7-18); BUN/Creat Ratio 19.6 RATIO (10-20); Calcium,Total 9.1 mg/dL (8.5-10.1); Chloride 107 mmol/L (98-107); Creatinine, Serum 0.77 mg/dL (0.55-1.02); EST Glomerular Filtration Rate 79 mL/min (>60); Est Glom Filt Rate - Afr Amer 96 mL/min (>60); Glucose 94 mg/dL (74-106); Sodium Level 139 mmol/L (136-145)
== END | disposition home or self-care (01) ==
LOC: PSN 07:13
PROVIDERS: PCP Nurse Practitioner; Referring Provider Otolaryngology; Visit Provider Otolaryngology
DX: Z01.812 Encounter for preprocedural laboratory examination (principal); Z01.810 Encounter for preprocedural cardiovascular examination
CPT/HCPCS: 36415; 80048; 85027; 93005

== ENCOUNTER → 2024-05-03 | Outpatient (CLI) | payer MEDICARE, OTHER, SELFPAY ==
--- NOTE | 2024-05-03 10:00 | ETH_PTH ---
PATIENT: MICHAEL MCKEON LOC: [facility] #:[id number] AGE/SX: 73/F ROOM: RE05/03/[address]: Dr. Buddy Shelton MD : 1950 BED: DIS: 05/03/2024 SPEC #: [id number] RECD: 05/05/24 07:36 STATUS: LOU SALAZAR #: [id number] JOANNE: 05/03/24 10:[address]: Buddy Shelton DEPT: SURGICAL PATHOLOGY RECD BY: Leisa Glynn ENTERED: 05/05/24 07:48 SP TYPE: ETH TISS OTHR DR: JANNETH BABIN, SHIPPING AND RECEIVING ASSISTANT-C Tissues: Ethmoid sinus, NOS Procedures: Surgery Specimen Level IV HEADER OPERATION: Open septo rhinoplasty, maxillary antrostomy, right and left PRE-OP DIAGNOSIS: External nasal valve collapse, dynamic, hypertrophy of nasal turbinates, nasal congestion TISSUE SUBMITTED: Left nasal sinus contents MICROSCOPIC DIAGNOSIS Left nasal sinus contents: Fragments of respiratory mucosa with chronic inflammation and bone. 05/09/2024 MICROSCOPIC DESCRIPTION Slides are reviewed. GROSS DESCRIPTION Received in fixative is one container labeled with the patient's name and designated Left nasal sinus contents. The specimen consists of multiple irregular fragments of soft tissue and cartilage and bone that in aggregate measure 2.0 x 1.5 x 0.3 cm. The specimen is totally submitted in one cassette after decalcification. 05/05/2024 TC:3 CPT:49978, 57337
== END | disposition home or self-care (01) ==
LOC: LABSPEC 05-05 08:07
PROVIDERS: PCP Nurse Practitioner; Referring Provider Otolaryngology; Visit Provider Otolaryngology
DX: R09.81 Nasal congestion (principal); J34.3 Hypertrophy of nasal turbinates
CPT/HCPCS: 88305

== ENCOUNTER 2024-06-01 05:20 | Day surgery (SDC) | payer MEDICARE, OTHER, SELFPAY ==
--- NOTE | 2024-05-30 09:18 | PAT.ANESEVAL ---
Pre-Assessment Diagnosis/Proposed Procedure Planned Operative Procedure(s): CSCOPE Anesthesia History Anesthesia History - punch press feeder: Anesthesia History - punch press feeder Hx Hospitalization No 05/30/24 08:28 Any Problems With Anesthesia Yes: PONV 05/30/24 08:28 Cholinesterase deficiency No 05/30/24 08:28 You/Your Family Experience No 05/30/24 08:28 fever (hyperthermia) with Relationship Recent Exposure to Contagious No 07/29/23 09:51 Disease Does patient have nerve No 05/30/24 08:28 stimulator Patient instructed to have device shut off --Does patient have Pacemaker or ICD? When Was Last Pacemaker Check QUESTION #4 FULL TEXT: You/Your Family Experience fever (hyperthermia) with Anesthesia Last Oral Intake Last Oral intake: Last Oral Intake NPO since Meds taken in AM with sips of water? Meds patient instructed to take am of surgery PONV PONV - punch press feeder: PONV - punch press feeder Female Yes 05/30/24 08:28 HX of Motion Sickness Yes 05/30/24 08:28 HX of N/V After Surgery Yes 05/30/24 08:28 Non-Smoker Yes 05/30/24 08:28 Duration of Surgery greater No 05/30/24 08:28 than 60 minutes Number of Risk Factors 4 05/30/24 08:28 PONV Score Severe Risk 05/30/24 08:28 Height & Weight Height & Weight: Anesthesia: Height & Weight Height 5 ft 08/06/23 14:32 Respiratory Assessment Respiratory Assessment - punch press feeder: Respiratory Tract Infection Hx - punch press feeder Hx Respiratory Tract Infection No 05/30/24 08:28 STOP Sleep Apnea STOP Sleep Apnea - punch press feeder: STOP Sleep Apnea - punch press feeder Hx Hypertension No 05/30/24 08:28 Hx Sleep Apnea No 05/30/24 08:28 CPAP BIPAP Do you snore loudly (louder No 05/30/24 08:28 than talking or can be heard Do you often feel tired/ No 05/30/24 08:28 fatigued/ sleepy during daytime? Has anyone observed you stop No 05/30/24 08:28 breathing during sleep? STOP Results Negative 05/30/24 08:28 QUESTION #5 FULL TEXT : Do you snore loudly (louder than talking or can be heard through closed doors)? Tobacco Use History Tobacco Use History - punch press feeder: Tobacco Use History - punch press feeder Tobacco Use Smoking Status Former smoker 05/30/24 08:28 Hx Tobacco Use Yes 05/30/24 08:28 Years Smoking Packs Smoked per Day Smoking Cessation Date was No - quit smoking greater 05/30/24 08:28 within the last 15 years than 15 years ago Hx Smoking Cessation Date 05/18/79 05/30/24 08:28 Hx Smoking Cessation Counseling Hematologic Medial History Hematologic Hx - punch press feeder: Hematologic Medical Hx - filler block inserter remover Hx of Blood Transfusion No 05/30/24 08:28 Hx of Transfusion in last 3 No 05/30/24 08:28 Months Date of Last Transfusion (if within last 3 months) Ever experience any problems No 05/30/24 08:28 with transfusion(s)? Specify any problems Hx of Preganancy in last 3 N/A 05/30/24 08:28 Months Nurse Filling Out Transfusion NBUCHER 05/30/24 08:28 & Questions: Date: 05/30/24 05/30/24 08:28 Time: 08:31 05/30/24 08:28 Patient unable to answer at this time (ie. confused, unrespo /Reproduction History /Reproductive History - punch press feeder: /Reproductive Hx- punch press feeder Hx Now No 05/30/24 08:28 Gestational Age (in weeks): EDC: Hx Hx Para Hx Section SAB No 05/30/24 08:28 [facility] Medical History (Updated 05/30/24 @ 08:37 by Adore Watson) Post-menopausal Arthritis PONV (postoperative nausea and vomiting) Leg cramps Wears glasses Alcohol use Seizures Former smoker Synovial cyst of popliteal space [Ho], right knee Tear of medial meniscus of right knee Osteoarthritis of right knee Right knee pain Home Medications ?Medication ?Instructions ?Recorded ?Last Taken ?Type calcium carbonate (Calcium 500) 500 mg PO DAILY 12/19/21 04/22/22 History mecobalamin (vitamin B12) 5,000 5,000 mcg PO DAILY 12/19/21 04/22/22 History mcg disintegrating tablet vitamins A,C,U-zoys-eolbfv 4,296 1 cap PO BID 12/19/21 04/22/22 History mcg-226 mg-90 mg capsule (PreserVision AREDS) alendronate 10 mg tablet 10 mg PO .once a week 03/31/24 Unknown History dicyclomine 10 mg capsule 10 mg PO TID PRN abdominal pain 04/25/24 Unknown Rx #60 caps magnesium 200 mg tablet 200 mg PO DAILY 05/30/24 Unknown History Allergy/AdvReac Type Severity Reaction Status Date / Time No Known Allergies Allergy Verified 05/30/24 08:26 Family History Mother Hypertension CVA (cerebral vascular accident) Surgical History (Updated 05/30/24 @ 08:37 by Adore Watson) History of rhinoplasty (05/03/24) History of partial hysterectomy (~10/2023) History of arthroplasty of right knee (~2021) History of hand surgery Social History household members: spouse Smoking Status: Former smoker alcohol intake: current Audit: Pertinent Findings Pertinent Findings EKG Perinent findings: 03/21/2024 normal sinus rhythm 61 bpm possible bilateral atrial enlargement Recommendation Anesthesia Recommendation Anesthesia recommendation: OPTIMIZED for anesthesia
[2024-06-01] VITALS (7 sets, daily range): BP systolic 113–138; BP diastolic 77–81; PULSE 74–90; RESP 16–18; TEMP 36.2–36.8; O2SAT 98–100; BMI 20.2
--- NOTE | 2024-06-01 06:30 | COLBX_PTH ---
PATIENT: MICHAEL MCKEON LOC: EN U#:[id number] AGE/SX: 73/F ROOM: RE06/01/[address]: Dr. Dhiraj King DO : 1950 BED: DIS: 06/01/2024 SPEC #: [id number] RECD: 06/01/24 10:41 STATUS: LOU REQ #: [id number] JOANNE: 06/01/24 06:[address]: Dhiraj King DEPT: SURGICAL PATHOLOGY RECD BY: Margot Zimmerman ENTERED: 06/01/24 11:20 SP TYPE: COLON BX OTHR DR: JANNETH BABIN, NE Manrique Tissues: Ileum, NOS Procedures: Surgery Specimen Level IV HEADER OPERATION: Colonoscopy biopsy PRE-OP DIAGNOSIS: Abdominal pain, change in bowel habits, constipation TISSUE SUBMITTED: Terminal ileum biopsy MICROSCOPIC DIAGNOSIS Terminal ileum, biopsy: Fragments of small intestinal mucosa, no pathologic diagnosis. SJ.mr 06/02/2024 MICROSCOPIC DESCRIPTION Slides are reviewed. GROSS DESCRIPTION Received in fixative is one container labeled with the patient's name and designated Terminal ileum biopsy. The specimen consists of multiple irregular fragments of light rodriguez soft tissue that in aggregate measure 1.4 x 0.4 x 0.2 cm. The specimen is totally submitted in one cassette. DAVIAN.mr 06/01/2024 TC:4 CPT:64534
--- NOTE | 2024-06-01 06:42 | PRE.ANES_ITS ---
ASA Classification* ASA Classification ASA Classification: 2 Assessment & Plan Anesthesia* Anesthesia Assessment Anesthesia Assessment: Discussed sedation and/or anesthesia options, risks, benefits, and alternatives with patient/parents/legal guardian/POA. Questions invited. The patient/parents/legal guardian/POA seems to understand and agrees to proceed with anesthesia plan. Reviewed the physical assessment, medical history, allergy history and patient home medications list prior to surgery/procedure/anesthetic and documented any changes. Performed airway and anesthesia risk assessments. Anesthesia Type Anesthesia Type: MAC Anesthesia Focused Assessment* Temperature: 98.0 F Pulse Rate: 90 Blood Pressure: 138/81 Respiratory Rate: 18 Pulse Ox: 99 Airway Assessment Mouth opens: >3 cm Mallampati Score: II Focused Labs Anesthesia Preop lab: CBC WBC 4.4 K/mm3 (4.4-11.0) 03/21/24 07:35 RBC 4.79 M/mm3 (4.2-5.4) 03/21/24 07:35 Hgb 14.5 g/dL (12.0-15.0) 03/21/24 07:35 Hct 43.9 % (37-47) 03/21/24 07:35 Plt Count 225 K/mm3 (150-450) 03/21/24 07:35 CHEMISTRY Potassium 4.0 mmol/L (3.5-5.1) 03/21/24 07:35 Sodium 139 mmol/L (136-145) 03/21/24 07:35 BUN 15 mg/dL (7-18) 03/21/24 07:35 Creatinine 0.77 mg/dL (0.55-1.02) 03/21/24 07:35 Glucose 94 mg/dL (74-106) 03/21/24 07:35 COAG Pre-Assessment Diagnosis/Proposed Procedure Planned Operative Procedure(s): CSCOPE Anesthesia History 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 When Was Last Pacemaker Check QUESTION #4 FULL TEXT: You/Your Family Experience fever (hyperthermia) with Anesthesia Last Oral Intake Last Oral intake: Last Oral Intake NPO since 02:30 06/01/24 05:52 Meds taken in AM with sips of No 06/01/24 05:52 water? Meds patient instructed to take am of surgery PONV PONV - software technician: PONV - software technician Female Yes 05/30/24 08:28 HX of Motion Sickness Yes 05/30/24 08:28 HX of N/V After Surgery Yes 05/30/24 08:28 Non-Smoker Yes 05/30/24 08:28 Duration of Surgery greater No 05/30/24 08:28 than 60 minutes Number of Risk Factors 4 05/30/24 08:28 PONV Score Severe Risk 05/30/24 08:28 Height & Weight Height & Weight: Anesthesia: Height & Weight Height 5 ft 06/01/24 05:52 Weight: 47 kg 06/01/24 05:52 Body Mass Index (BMI) 20.2 06/01/24 05:52 Respiratory Assessment Respiratory Assessment - software technician: Respiratory Tract Infection Hx - software technician Hx Respiratory Tract Infection No 05/30/24 08:28 STOP Sleep Apnea STOP Sleep Apnea - software technician: STOP Sleep Apnea - software technician Hx Hypertension No 05/30/24 08:28 Hx Sleep Apnea No 05/30/24 08:28 CPAP BIPAP Do you snore loudly (louder No 05/30/24 08:28 than talking or can be heard Do you often feel tired/ No 05/30/24 08:28 fatigued/ sleepy during daytime? Has anyone observed you stop No 05/30/24 08:28 breathing during sleep? STOP Results Negative 05/30/24 08:28 QUESTION #5 FULL TEXT : Do you snore loudly (louder than talking or can be heard through closed doors)? 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 Specify any problems Hx of Preganancy in last 3 N/A 05/30/24 08:28 Months Nurse Filling Out Transfusion NBUCHER 05/30/24 08:28 & Questions: Date: 05/30/24 05/30/24 08:28 Time: 08:31 05/30/24 08:28 Patient unable to answer at this time (ie. confused, unrespo /Reproduction History /Reproductive History - software technician: /Reproductive Hx- software technician Hx Now No 05/30/24 08:28 Gestational Age (in weeks): EDC: Hx Hx Para Hx Section SAB No 05/30/24 08:28 PFSH Medical History Post-menopausal Arthritis PONV (postoperative nausea and vomiting) Leg cramps Wears glasses Alcohol use Seizures Former smoker Synovial cyst of popliteal space [Ho], right knee Tear of medial meniscus of right knee Osteoarthritis of right knee Right knee pain Home Medications ?Medication ?Instructions ?Recorded ?Last Taken ?Type calcium carbonate (Calcium 500) 500 mg PO DAILY 12/19/21 04/22/22 History mecobalamin (vitamin B12) 5,000 5,000 mcg PO DAILY 12/19/21 04/22/22 History mcg disintegrating tablet vitamins A,C,I-bvfn-xqkrkx 4,296 1 cap PO BID 12/19/21 04/22/22 History mcg-226 mg-90 mg capsule (PreserVision AREDS) alendronate 10 mg tablet 10 mg PO .once a week 03/31/24 Unknown History dicyclomine 10 mg capsule 10 mg PO TID PRN abdominal pain 04/25/24 Unknown Rx #60 caps magnesium 200 mg tablet 200 mg PO DAILY 05/30/24 Unknown History Allergy/AdvReac Type Severity Reaction Status Date / Time No Known Allergies Allergy Verified 06/01/24 05:51 Family History Mother Hypertension CVA (cerebral vascular accident) Surgical History History of rhinoplasty (05/03/24) History of partial hysterectomy (~10/2023) History of arthroplasty of right knee (~2021) History of hand surgery Social History household members: spouse Smoking Status: Former smoker alcohol intake: current Review of Systems (Anesthesia) ROS Narrative System reviewed and no additional complaints, except as documented.
--- NOTE | 2024-06-01 06:56 | PCM.HP.STD ---
HPI - General General Date of Admission: 06/01/24 Date of Service: 06/01/24 Chief Complaint: abdominal pain HPI Narrative MICHAEL MCKEON, is a 73 F who presents Chief Complaint: bowel changes and abdominal discomfort Details: 73y/o female presents for consultation of abdominal pain. CBC and BMP were unremarkable 03/21/2024. CT A&P 03/17/2023 Large amount of fecal material is seen in the colon. COLONOSCOPY last performed 6 years ago per patient - she reports this was negative - denies any family h/o colon CA - she complains of 8/10 abdominal pain, intermittent x1 year, she describes this as an aching pain, reports getting up and moving around helps alleviate the pain - does not eat until the pain resolves - wakes her in the morning and lingers for a few hours - she is having a BM daily - bit now having smaller more frequent stools instead of 1 formed stool - denies any dietary or medication changes - denies any weight loss - she had bladder surgery October 2023 for bladder prolapse, also had a partial hysterctomy ay this time - reports taking Mag Citrate prior to surgery took 5h to work - denies any HB or indigestion - denies any N/V - denies any bleeding - Miralax for 10 days caused fecal leakage and did not help with frequency of stools or quantity B - bread and coffee L - salad with a protein, cottage cheese or fruit D - starch, protein and vegetable sometimes - she reports drinking plenty of water \ [facility] Medical History Post-menopausal Arthritis PONV (postoperative nausea and vomiting) Leg cramps Wears glasses Alcohol use Seizures Former smoker Synovial cyst of popliteal space [Ho], right knee Tear of medial meniscus of right knee Osteoarthritis of right knee Right knee pain Home Medications ?Medication ?Instructions ?Recorded ?Last Taken ?Type calcium carbonate (Calcium 500) 500 mg PO DAILY 12/19/21 04/22/22 History mecobalamin (vitamin B12) 5,000 5,000 mcg PO DAILY 12/19/21 04/22/22 History mcg disintegrating tablet vitamins A,C,Y-kyxe-sjanwj 4,296 1 cap PO BID 12/19/21 04/22/22 History mcg-226 mg-90 mg capsule (PreserVision AREDS) alendronate 10 mg tablet 10 mg PO .once a week 03/31/24 Unknown History dicyclomine 10 mg capsule 10 mg PO TID PRN abdominal pain 04/25/24 Unknown Rx #60 caps magnesium 200 mg tablet 200 mg PO DAILY 05/30/24 Unknown History Allergy/AdvReac Type Severity Reaction Status Date / Time No Known Allergies Allergy Verified 06/01/24 05:51 Family History Mother Hypertension CVA (cerebral vascular accident) Surgical History History of rhinoplasty (05/03/24) History of partial hysterectomy (~10/2023) History of arthroplasty of right knee (~2021) History of hand surgery Social History household members: spouse Smoking Status: Former smoker alcohol intake: current ROS Constitutional Constitutional: Denies fatigue, fever(s), poor appetite, weight gain or weight loss Gastrointestinal Gastrointestinal: Denies belching, bloating, change in bowel habits, change in stool character, chewing difficulty, coffee ground emesis, constipation, cramping, diarrhea, dyspepsia, dysphagia, early satiety, excessive flatus, fecal incontinence, heartburn, hematemesis, hematochezia, hemorrhoids, loose stools, melena, nausea, odynophagia, rectal bleeding, tenesmus, vomiting or weight changes Vital Signs Vital Signs Vital Signs: 06/01/24 05:52 06/01/24 05:52 06/01/24 06:42 Temperature 98.0 F 98.0 F Temperature Source Temporal Pulse Rate 90 90 Respiratory Rate 18 18 Respiratory Pattern Normal Blood Pressure 138/81 H 138/81 H Blood Pressure Mean 100 Blood Pressure Source Monitor Blood Pressure Position Sitting Blood Pressure Location Left Arm Pulse Ox 99 99 Oxygen Delivery Method Room Air Weight Weight: 103 lb 9.876 oz Body Mass Index (BMI) 20.2 Physical Exam Const alert, oriented x3, no apparent distress and healthy appearing General Appearance: cooperative GI normal to inspection, nondistended, normoactive bowel sounds, soft to palpation, non-tender and non-distended Percussion: normal to percussion Rectal Exam: deferred Assessment & Plan Assessment/Plan (1) Constipation: QUALIFIERS: Constipation type: unspecified constipation type Qualified Code(s): K59.00 - Constipation, unspecified (2) Change in bowel habits: PLAN: Plan Assessment and Plan Assessment and Plan (1) Abdominal pain: Qualifiers: Abdominal location: generalized Qualified Code(s): R10.84 - Generalized abdominal pain (2) Change in bowel habits: Status: Acute (3) Constipation: Status: Acute Qualifiers: Constipation type: unspecified constipation type Qualified Code(s): K59.00 - Constipation, unspecified Plan 73y/o female presents for consultation of abdominal pain. CBC and BMP were unremarkable 03/21/2024. CT completed one year ago was consistent with constipation. She reports a change in bowel habits with a decrease in frequency of stools over the past year. She complains of lower abdominal pain x1 year, worse over the past 6 months. Stools have changed to several small hard pieces daily. She denies any bleeding or weight loss. Denies any dietary or medication changes. I have recommended a high fiber diet with the addition of Benefiber and magnesium supplement daily. She will schedule colonoscopy and follow-up via portal or telephone in 2 weeks with symptoms update. Patient Instructions: 1. Benefiber 2 tsp once a day in 8 ounces of water after breakfast 2. Magnesium supplement twice a day 3. Prunes 2-3 a day 4. High fiber diet 5. Call in 2 weeks with symptom update 6. Colonoscopy Plan Details Follow Up: 3 Months
--- NOTE | 2024-06-01 07:26 | OP.COLON_ITS ---
Patient Name: Phyllis Sanchez Procedure Date: 06/01/2024 6:41 AM Date of : 1950 Age: 73 Procedure: Colonoscopy Indications: Generalized abdominal pain Providers: Dhiraj King DO Referring MD: Christina Martin Np-sai Medicines: Monitored Anesthesia Care Patient Profile: This is a 73 year old female. Refer to note in patient chart for documentation of history and physical. Last Colonoscopy: 10 years ago. Complications: No immediate complications. Procedure: Pre-Anesthesia Assessment: - Prior to the procedure, a History and Physical was performed, and patient medications and allergies were reviewed. The patient is competent. The risks and benefits of the procedure and the sedation options and risks were discussed with the patient. All questions were answered and informed consent was obtained. Patient identification and proposed procedure were verified by the physician in the pre-procedure area. Mental Status Examination: alert and oriented. Airway Examination: normal oropharyngeal airway and neck mobility. Respiratory Examination: clear to auscultation. CV Examination: normal. Prophylactic Antibiotics: The patient does not require prophylactic antibiotics. Prior Anticoagulants: The patient has taken no anticoagulant or antiplatelet agents except for NSAID medication. ASA Grade Assessment: II - A patient with mild systemic disease. After reviewing the risks and benefits, the patient was deemed in satisfactory condition to undergo the procedure. The anesthesia plan was to use monitored anesthesia care (MAC). Immediately prior to administration of medications, the patient was re-assessed for adequacy to receive sedatives. The heart rate, respiratory rate, oxygen saturations, blood pressure, adequacy of pulmonary ventilation, and response to care were monitored throughout the procedure. The physical status of the patient was re-assessed after the procedure. After I obtained informed consent, the scope was passed under direct vision. Throughout the procedure, the patient's blood pressure, pulse, and oxygen saturations were monitored continuously. The colonoscope was introduced through the anus and advanced to the cecum, identified by appendiceal orifice and ileocecal valve. The colonoscopy was performed without difficulty. The patient tolerated the procedure well. The quality of the bowel preparation was adequate. The terminal ileum, ileocecal valve, appendiceal orifice, and rectum were photographed. Scope In: 7:06:22 AM Scope Out: 7:20:21 AM Total Procedure Duration Time 0 hours 13 minutes 59 seconds Findings: The perianal and digital rectal examinations were normal. Retroflexion was not performed because of the patient's very small rectum. Multiple small-mouthed diverticula were found in the recto-sigmoid colon, sigmoid colon, hepatic flexure, ascending colon and cecum. Patchy mild inflammation characterized by congestion (edema) was found in the distal ileum and in the terminal ileum. Biopsies were taken with a cold forceps for histology. Verification of patient identification for the specimen was done. Estimated blood loss was minimal. Impression: - Diverticulosis in the recto-sigmoid colon, in the sigmoid colon, at the hepatic flexure, in the ascending colon and in the cecum. - Mild inflammation was found in the ileum secondary to ileitis. Biopsied. Recommendation: - Discharge patient to home. - Resume previous diet. - Continue present medications. - Await pathology results. - Repeat colonoscopy in 10 years for screening purposes. Procedure Code(s): --- Professional --- 59576, Colonoscopy, flexible; with biopsy, single or multiple CPT copyright 2021 [employer] [place] [employer]. All rights reserved. The codes documented in this report are preliminary and upon fuel cell test engineer review may be revised to meet current compliance requirements. Dhiraj King DO 06/01/2024 7:25:52 AM This report has been signed electronically. Number of Addenda: 0 Note Initiated On: 06/01/2024 6:41 AM
--- NOTE | 2024-06-01 07:27 | OP.CCLET_ITS ---
06/01/2024 Phillip Burleson Re : Colonoscopy procedure for Phyllis Sanchez Dear Veronica This procedure was performed on Saturday, June 01, 2024. My impressions and recommendations are as follows: Impressions : - Diverticulosis in the recto-sigmoid colon, in the sigmoid colon, at the hepatic flexure, in the ascending colon and in the cecum. - Mild inflammation was found in the ileum secondary to ileitis. Biopsied. Recommendations : - Discharge patient to home. - Resume previous diet. - Continue present medications. - Await pathology results. - Repeat colonoscopy in 10 years for screening purposes. My findings are described in the full procedure note, which is enclosed. If I can be of further assistance, please feel free to contact me at . Sincerely, Dhiraj Friend, 06/01/2024 7:25:52 AM This report has been signed electronically.
--- NOTE | 2024-06-01 07:32 | PCM.POST.ANE ---
Anesthesia: Postop Eval I Current Vital Signs Temperature: 97.1 F Pulse Rate: 77 Blood Pressure: 113/77 Respiratory Rate: 16 Pulse Ox: 100 Oxygen Delivery Method: Room Air Assessment Airway patent: Yes Spontaneous unlabored respirations: Yes Mental status: Awake and Calm nausea: No Vomiting: No Anesthesia Complication: No Fluid Hydration Crystalloid volume administer (ml): 40 Total IV fluid infused: 40 Progress Note Anesthesia document: Postop Eval 1 completed: Yes
--- NOTE | 2024-06-01 08:45 | PCM.POSTANE2 ---
Anesthesia Postop Eval I Sum Postop Eval Completion status Anesthesia document: Postop Eval 1 completed: Yes Anesthesia Postop Eval I Summary Anesthesia Postop Eval I Summary: Anesthesia Postop Eval I: Assessment Summary Airway patent Yes 06/01/24 07:33 [email or web address] Spontaneous unlabored Yes 06/01/24 07:33 [email or web address] respirations Mental status Awake,Calm 06/01/24 07:33 [email or web address] nausea No 06/01/24 07:33 [email or web address] Vomiting No 06/01/24 07:33 [email or web address] Anesthesia Postop Eval I: Fluid Summary Crystalloid volume administer 40 06/01/24 07:33 [email or web address] (ml) Colloids volume administered ( ml) Blood Product volume administered (ml) Total IV fluid infused 40 06/01/24 07:33 [email or web address] Anesthesia Postop Eval I: Summary Notes Anesthesia Complication No 06/01/24 07:33 [email or web address] Anesthesia Complication Comment: Post-operative progress note Anesthesia: Postop Eval II Evaluation Mental status: Awake Pain Level: 0 nausea: No Vomiting: No
== END 2024-06-01 07:55 | disposition home or self-care (01) ==
LOC: EN 05:21 → AC 05:22
PROVIDERS: PCP Nurse Practitioner; Referring Provider Nurse Practitioner; Visit Provider Internal Medicine Gastroenterology
PROC: 0DJD8ZZ Inspection of Lower Intestinal Tract, Via Natural or Artificial Opening Endoscopic (ICD-10-PCS; CPT 45378; principal; 2024-06-01 06:25)
DX: R10.84 Generalized abdominal pain (principal); K57.30 Diverticulosis of large intestine without perforation or abscess without bleeding; Z79.83 Long term (current) use of bisphosphonates; Z87.891 Personal history of nicotine dependence; Z90.710 Acquired absence of both cervix and uterus; K59.00 Constipation, unspecified
CPT/HCPCS: 45380; 88305; A4216; J2405

== ENCOUNTER → 2024-10-14 | Outpatient (CLI) | payer MEDICARE, OTHER, SELFPAY ==
--- NOTE | 2024-10-14 06:52 | CT_ITS ---
PROCEDURE: ABDOMEN/PELVIS WITH CONTRAST 10/14/2024 REASON FOR EXAM: LOWER ABDOMINAL PAIN TECHNIQUE: Abdomen and pelvis CT with intravenous contrast. Coronal and Sagittal reconstruction series were provided. PATIENT PREPARATION: Per protocol Enteric contrast was administered. CONTRAST: Isovue 370 VOLUME: 100 mL. One or more dose reduction techniques were used (e.g., Automated exposure control, adjustment of the mA and/or kV according to patient size, use of iterative reconstruction technique. RADIATION DOSE SUMMARY: CTDlvol: 16.62+ 5.50 mGy DLP: 260.96 mGycm COMPARISON: 03/17/2023. FINDINGS: Similar densities of the lung bases which may represent scar. The peripheral soft tissues are unremarkable. Degenerative changes of the spine most pronounced at L3-4. Mild to moderate atherosclerosis. Normal caliber abdominal aorta. No suspicious lymphadenopathy. The liver, gallbladder, pancreas, spleen, and adrenal glands are unremarkable. Symmetric enhancement of the bilateral kidneys. No nephrolithiasis. No hydroureteronephrosis. Left kidney simple renal sinus cysts. Possible small lesion abutting the posteroinferior wall of the urinary bladder (coronal image 56 of 97). Normal caliber large and small bowel. Normal caliber appendix. No surrounding inflammatory changes. Dense colonic stool. Borderline gastric wall thickening. CT/Abdomen/Pelvis WITH Contrast IMPRESSION: Possible urinary bladder lesion. Further characterization with ultrasound is r ecommended. Borderline gastric wall thickening which may be due to underdistention or gastr itis. Constipation. Reading Location: [place] [id number]
== END | disposition home or self-care (01) ==
LOC: CT 06:51
PROVIDERS: PCP Nurse Practitioner; Referring Provider Nurse Practitioner Acute Care; Visit Provider Nurse Practitioner Acute Care
DX: R10.33 Periumbilical pain (principal); K59.00 Constipation, unspecified
CPT/HCPCS: 74177; Q9967

== ENCOUNTER 2024-11-08 13:05 | Day surgery (SDC) | payer MEDICARE, OTHER, SELFPAY ==
[2024-11-08] VITALS (7 sets, daily range): BP systolic 122–141; BP diastolic 70–81; PULSE 68–89; RESP 16; TEMP 36.4–37.2; O2SAT 98–100; BMI 20.5
--- NOTE | 2024-11-08 13:19 | PCM.HP.STD ---
HPI - General General Date of Admission: 11/08/24 Date of Service: 11/08/24 Chief Complaint: Abdominal pain HPI Narrative 73-year-old female presents for follow-up of abdominal pain and constipation. She was last seen in the office on 07/04/2024 and had complaints of intermittent, deep, sharp abdominal pain that would wake her early in the morning at least 5 days a week. She had reported pain dissipated with getting up and moving or a bowel movement. She was asked to start Linzess 145 mcg once daily. She reports improvement in bowel frequency with Linzess but no improvement in abdominal pain. In addition OOP cost was $500. She is presently taking Benefiber 1-2 times a day and magnesium OTC supplement twice daily. She has a bowel movement daily but reports stools are small. She does endorse minimal improvement in lower abdominal discomfort with a bowel movement. She denies any weight loss or bleeding. I have ordered a CT scan for further evaluation of abdominal pain and she will try Ibsrela 50 mg twice daily in the interim. Patient Instructions: Ibsrela 50mg BID Complete CT Hold Magnesium when you start Ibsrela, may add back if needed Will enroll in PAT for Ibsrela if not covered benefit COLON 06/01/2024 - TI biopsy unremarkable - Diverticulosis in the recto-sigmoid colon, in the sigmoid colon, at the hepatic flexure, in the ascending colon and in the cecum. - Mild inflammation was found in the ileum secondary to ileitis. Biopsied. 10/14/[address] scan reveals constipation, possible bladder lesion and borderline gastric wall thickening (possibly related to under distension of the stomach). - this is a change from 2022 - partial hysterectomy, oophorectomy, bladder suspension 2023 - Bulkamid to prevent urinary leakage 2023 - UroGYN Dr. Hanley - [facility] - she reports about 10 days ago she switched back to fiber and magnesium --- reports she was taking Magnesium and Fiber when she had CT completed 10/14 which revealed constipation - with Ibsrela once daily or 1/2 tablet daily she had uncontrolled diarrhea - she is taking psyllium powder 1tbsp BID - Magnesium capsules one capsule daily - she reports with the magnesium and fiber she has a BM 1-2x a day, small stools, soft - denies any diarrhea - denies any weight loss - Linzess was too expensive and caused diarrhea - reports she did take Linzess for two weeks - she did not take Ibsrela daily for two weeks, unable to tolerate diarrhea - discussed likely overflow - she has increased her activity - water intake is good - denies any HB, indigestion, N/V - denies any dysphagia PFS Medical History Post-menopausal Arthritis PONV (postoperative nausea and vomiting) Leg cramps Wears glasses Alcohol use Seizures Former smoker Synovial cyst of popliteal space [Ho], right knee Tear of medial meniscus of right knee Osteoarthritis of right knee Right knee pain Home Medications ?Medication ?Instructions ?Recorded ?Last Taken ?Type calcium carbonate (Calcium 500) 500 mg PO DAILY 12/19/21 04/22/22 History mecobalamin (vitamin B12) 5,000 5,000 mcg PO DAILY 12/19/21 04/22/22 History mcg disintegrating tablet vitamins A,C,N-rcou-dceyij 4,296 1 cap PO BID 12/19/21 04/22/22 History mcg-226 mg-90 mg capsule (PreserVision AREDS) alendronate 10 mg tablet 10 mg PO QWEEK 03/31/24 Unknown History magnesium 200 mg tablet 200 mg PO DAILY 09/13/24 Unknown History wheat dextrin 3 gram/3.5 gram oral 1 packet PO QDAY 09/13/24 Unknown History powder packet (Benefiber Clear Sugar Free(dextrin)) lubiprostone 8 mcg capsule 8 mcg PO BID #60 caps 10/24/24 Unknown Rx (Amitiza) Allergy/AdvReac Type Severity Reaction Status Date / Time No Known Allergies Allergy Verified 11/03/24 13:16 Family History Mother Hypertension CVA (cerebral vascular accident) Surgical History History of colonoscopy History of rhinoplasty (05/03/24) History of partial hysterectomy (~10/2023) History of arthroplasty of right knee (~2021) History of hand surgery Social History household members: spouse Smoking Status: Former smoker alcohol intake: current ROS Constitutional Constitutional: Denies fatigue, fever(s), poor appetite, weight gain or weight loss Gastrointestinal Gastrointestinal: Denies belching, bloating, change in bowel habits, change in stool character, chewing difficulty, coffee ground emesis, constipation, cramping, diarrhea, dyspepsia, dysphagia, early satiety, excessive flatus, fecal incontinence, heartburn, hematemesis, hematochezia, hemorrhoids, loose stools, melena, nausea, odynophagia, rectal bleeding, tenesmus, vomiting or weight changes Physical Exam Const alert, oriented x3, no apparent distress and healthy appearing General Appearance: cooperative GI normal to inspection, nondistended, normoactive bowel sounds, soft to palpation, non-tender and non-distended Percussion: normal to percussion Rectal Exam: deferred Assessment & Plan Assessment/Plan (1) Abdominal pain: QUALIFIERS: Abdominal location: periumbilical Qualified Code(s): R10.33 - Periumbilical pain PLAN: Assessment and Plan Assessment and Plan (1) Constipation: Status: Acute Qualifiers: Constipation type: unspecified constipation type Qualified Code(s): K59.00 - Constipation, unspecified (2) Abdominal pain: Status: Acute Qualifiers: Abdominal location: periumbilical Qualified Code(s): R10.33 - Periumbilical pain (3) Abnormal CT scan, bladder: Status: Acute Plan: Patient to obtain copy of CT on disc and take to her f/u appt. with UroGyn the end of this month Follow-up with Dr. Hanley Orders: Referrals Gastroenterology K59.00 - Constipation, unspecified, R10.33 - Periumbilical pain
[2024-11-08] MEDS: Lactated Ringers 1,000 ML 15 ML IV (13:41)
--- NOTE | 2024-11-08 14:13 | PCM.PRE.AN2 ---
ASA Classification* ASA Classification ASA Classification: 2 Assessment & Plan Anesthesia* Anesthesia Assessment Anesthesia Assessment: Discussed sedation and/or anesthesia options, risks, benefits, and alternatives with patient/parents/legal guardian/POA. Questions invited. The patient/parents/legal guardian/POA seems to understand and agrees to proceed with anesthesia plan. Reviewed the physical assessment, medical history, allergy history and patient home medications list prior to surgery/procedure/anesthetic and documented any changes. Performed airway and anesthesia risk assessments. Anesthesia Type Anesthesia Type: MAC History Source History Obtained from:: Patient and Chart Anesthesia Focused Assessment* Temperature: 98.9 F Pulse Rate: 74 Blood Pressure: 141/81 Respiratory Rate: 16 Pulse Ox: 100 Oxygen Delivery Method: Room Air Airway Assessment Mouth opens: >3 cm Mallampati Score: II Teeth Condition: Intact Neck Range of motion (ROM): Full ROM Labs Anesthesia Preop lab: CBC WBC 4.4 K/mm3 (4.4-11.0) 03/21/24 07:35 03/21/24 RBC 4.79 M/mm3 (4.2-5.4) 03/21/24 07:35 03/21/24 Hgb 14.5 g/dL (12.0-15.0) 03/21/24 07:35 03/21/24 Hct 43.9 % (37-47) 03/21/24 07:35 03/21/24 Plt Count 225 K/mm3 (150-450) 03/21/24 07:35 03/21/24 CHEMISTRY Potassium 4.0 mmol/L (3.5-5.1) 03/21/24 07:35 03/21/24 Sodium 139 mmol/L (136-145) 03/21/24 07:35 03/21/24 BUN 15 mg/dL (7-18) 03/21/24 07:35 03/21/24 Creatinine 0.77 mg/dL (0.55-1.02) 03/21/24 07:35 03/21/24 Glucose 94 mg/dL (74-106) 03/21/24 07:35 03/21/24 COAG Pre-Assessment Diagnosis/Proposed Procedure Planned Operative Procedure(s): EGD Anesthesia History Anesthesia History - group program manager: Anesthesia History - group program manager Hx Hospitalization No 11/03/24 13:18 Any Problems With Anesthesia Yes: PONV 11/03/24 13:18 Cholinesterase deficiency No 11/03/24 13:18 You/Your Family Experience No 11/03/24 13:18 fever (hyperthermia) with Relationship Recent Exposure to Contagious No 11/08/24 13:42 Disease Does patient have nerve No 11/03/24 13:18 stimulator Patient instructed to have device shut off --Does patient have Pacemaker No 11/08/24 13:42 or ICD? When Was Last Pacemaker Check QUESTION #4 FULL TEXT: You/Your Family Experience fever (hyperthermia) with Anesthesia Last Oral Intake Last Oral intake: Last Oral Intake NPO since 09:45 11/08/24 13:42 Meds taken in AM with sips of No 11/08/24 13:42 water? Meds patient instructed to take am of surgery Any additional information?: Yes NPO since: : (Patient black coffee at 9:45 AM.) Meds taken in AM with sips of water?: No PONV PONV - group program manager: PONV - group program manager Female Yes 11/03/24 13:18 HX of Motion Sickness No 11/03/24 13:18 HX of N/V After Surgery Yes 11/03/24 13:18 Non-Smoker Yes 11/03/24 13:18 Duration of Surgery greater No 11/03/24 13:18 than 60 minutes Number of Risk Factors 3 11/03/24 13:18 PONV Score Moderate Risk 11/03/24 13:18 Height & Weight Height & Weight: Anesthesia: Height & Weight Height 5 ft 11/08/24 13:42 Weight: 47.6 kg 11/08/24 13:42 Body Mass Index (BMI) 20.5 11/08/24 13:42 Respiratory Assessment Respiratory Assessment - group program manager: Respiratory Tract Infection Hx - group program manager Hx Respiratory Tract Infection No 11/03/24 13:18 STOP Sleep Apnea STOP Sleep Apnea - group program manager: STOP Sleep Apnea - group program manager Hx Hypertension No 11/03/24 13:18 Hx Sleep Apnea No 11/03/24 13:18 CPAP BIPAP Do you snore loudly (louder No 11/03/24 13:18 than talking or can be heard Do you often feel tired/ No 11/03/24 13:18 fatigued/ sleepy during daytime? Has anyone observed you stop No 11/03/24 13:18 breathing during sleep? STOP Results Negative 11/03/24 13:18 QUESTION #5 FULL TEXT : Do you snore loudly (louder than talking or can be heard through closed doors)? Tobacco Use History Tobacco Use History - group program manager: Tobacco Use History - group program manager Tobacco Use Smoking Status Former smoker 11/03/24 13:18 Hx Tobacco Use Yes 11/03/24 13:18 Years Smoking Packs Smoked per Day Smoking Cessation Date was No - quit smoking greater 11/03/24 13:18 within the last 15 years than 15 years ago Hx Smoking Cessation Date 05/18/79 11/03/24 13:18 Hx Smoking Cessation Counseling Hematologic Medial History Hematologic Hx - group program manager: Hematologic Medical Hx - machine binding folder Hx of Blood Transfusion No 11/03/24 13:18 Hx of Transfusion in last 3 No 11/03/24 13:18 Months Date of Last Transfusion (if within last 3 months) Ever experience any problems No 11/03/24 13:18 with transfusion(s)? Specify any problems Hx of Preganancy in last 3 N/A 11/03/24 13:18 Months Nurse Filling Out Transfusion NBUCHER 11/03/24 13:18 & Questions: Date: 11/03/24 11/03/24 13:18 Time: 13:18 11/03/24 13:18 Patient unable to answer at this time (ie. confused, unrespo /Reproduction History /Reproductive History - group program manager: /Reproductive Hx- group program manager Hx Now Gestational Age (in weeks): EDC: Hx Hx Para Hx Section SAB No 11/03/24 13:18 Active Medications Active Medications: Current Medications Generic Name Dose Route Start Last Admin Trade Name Freq PRN Reason Stop Dose Admin Lactated Ringer's 1,000 mls @ 15 mls/hr 11/08/24 13:15 11/08/24 13:41 IV 15 mls/hr .Q48H JACEY Administration PFSH Medical History Post-menopausal Arthritis PONV (postoperative nausea and vomiting) Leg cramps Wears glasses Alcohol use Seizures Former smoker Synovial cyst of popliteal space [Ho], right knee Tear of medial meniscus of right knee Osteoarthritis of right knee Right knee pain Home Medications ?Medication ?Instructions ?Recorded ?Last Taken ?Type calcium carbonate (Calcium 500) 500 mg PO DAILY 12/19/21 04/22/22 History mecobalamin (vitamin B12) 5,000 5,000 mcg PO DAILY 12/19/21 04/22/22 History mcg disintegrating tablet vitamins A,C,S-qwur-dsidpf 4,296 1 cap PO BID 12/19/21 04/22/22 History mcg-226 mg-90 mg capsule (PreserVision AREDS) alendronate 10 mg tablet 10 mg PO QWEEK 03/31/24 Unknown History magnesium 200 mg tablet 200 mg PO DAILY 09/13/24 Unknown History wheat dextrin 3 gram/3.5 gram oral 1 packet PO QDAY 09/13/24 Unknown History powder packet (Benefiber Clear Sugar Free(dextrin)) lubiprostone 8 mcg capsule 8 mcg PO BID #60 caps 10/24/24 Unknown Rx (Amitiza) Allergy/AdvReac Type Severity Reaction Status Date / Time No Known Allergies Allergy Verified 11/08/24 13:39 Family History Mother Hypertension CVA (cerebral vascular accident) Surgical History History of colonoscopy History of rhinoplasty (05/03/24) History of partial hysterectomy (~10/2023) History of arthroplasty of right knee (~2021) History of hand surgery Social History household members: spouse Smoking Status: Former smoker alcohol intake: current Review of Systems (Anesthesia) ROS Narrative System reviewed and no additional complaints, except as documented.
--- NOTE | 2024-11-08 14:15 | EGD_PTH ---
PATIENT: MICHAEL MCKEON LOC: EN U#:[id number] AGE/SX: 73/F ROOM: RE11/08/[address]: Dr. Dhiraj King DO : 1950 BED: DIS: 11/08/2024 SPEC #: [id number] RECD: 11/08/24 16:04 STATUS: LOU REItalia #: [id number] JOANNE: 11/08/24 14:[address]: Dhiraj King DEPT: SURGICAL PATHOLOGY RECD BY: Av Austin ENTERED: 11/09/24 09:27 SP TYPE: EGD BIOPSY EARLENE DR: JANNETH BABIN, COMPUTATIONAL MATHEMATICIAN-C Tissues: A - Gastric mucous membrane B - Esophagus, NOS Procedures: Immunohistochemical Stains Surgery Specimen Level IV IHC Stain ADDITIONAL HEADER OPERATION: EGD, biopsy PRE-OP DIAGNOSIS: Constipation, abdominal pain, abnormal CT scan, bladder TISSUE SUBMITTED: A- Gastric body biopsy, B- Distal esophagus biopsy MICROSCOPIC DIAGNOSIS A. Gastric body, biopsy: - Antral-like mucosa with intestinal metaplasia, negative for dysplasia - see note. - IHC negative for H.pylori organisms. Note: IHC for Chromogranin highlights nodular and linear ECL-cell hyperplasia. 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 Recommend clinical correlation and consider serologic testing for anti-parietal cell and anti-intrinsic factor antibodies. B. Distal esophagus, biopsy: - Squamous mucosa with reactive changes. - Columnar mucosa with goblet cell metaplasia - see note. - Negative for dysplasia. Note: The diagnosis depends on the location of the biopsy and the extent of the mucosal irregularity. If the biopsy originates from the tubular esophagus and the mucosal irregularity extends at least 1 cm above the top of the gastric folds, this represents Cheng mucosa. If the biopsy originates from the gastric cardia and/or the mucosal irregularity is less than 1 cm in extent, this represents intestinal metaplasia. MICROSCOPIC DESCRIPTION Slides are reviewed. GROSS DESCRIPTION A. Received in fixative is one container labeled with the patient's name and designated Gastric body biopsy. The specimen consists of two irregular fragments of light rodriguez soft tissue that in aggregate measure 0.4 and 0.5 cm. The specimen is totally submitted in one cassette. B. Received in fixative is one container labeled with the patient's name and designated Distal esophagus biopsy. The specimen consists of two irregular fragments of light rodriguez soft tissue that in aggregate measure 0.3 and 0.4 cm. The specimen is totally submitted in one cassette. WILLI/mr 11/09/2024 CPT:63952o3,44579,[id number] ADDENDUM ADDENDUM ADDENDUM ADDENDUM ADDENDUM ADDENDUM ADDENDUM ADDENDUM ADDENDUM ADDENDUM ADDENDUM ADDENDUM ADDENDUM ADDENDUM 01/12/2025 13:17 ADDENDUM 01/12/2025 13:17 ADDENDUM 01/12/2025 13:17 ADDENDUM 01/12/2025 13:17 ADDENDUM 01/12/2025 13:17 This addendum is added to incorporate an outside pathology consultation report. The case was examined at [facility] and the following diagnosis was rendered. TISSUE CYPHER - CHENG'S ESOPHAGUS REPORT - B1: RISK CLASS: LOW RISK SCORE: 5.3 5-year probability of progression: 6% Please see complete above mentioned consultation report in EMR
--- NOTE | 2024-11-08 14:58 | OP.EGD_ITS ---
Patient Name: Phyllis Sanchez Procedure Date: 11/08/2024 2:38 PM Date of : 1950 Age: 73 Procedure: Upper GI endoscopy Indications: Epigastric abdominal pain, Functional Dyspepsia Providers: Dhiraj King DO Referring MD: Christina Martin Np-sai Medicines: Monitored Anesthesia Care Patient Profile: This is a 73 year old female. Refer to note in patient chart for documentation of history and physical. Patient has symptoms of chronic abdominal distention, chronic abdominal pain, chronic dyspepsia and chronic nausea. Complications: No immediate complications. Procedure: Pre-Anesthesia Assessment: - Prior to the procedure, a History and Physical was performed, and patient medications and allergies were reviewed. The patient is competent. The risks and benefits of the procedure and the sedation options and risks were discussed with the patient. All questions were answered and informed consent was obtained. Patient identification and proposed procedure were verified by the physician in the pre-procedure area. Mental Status Examination: alert and oriented. Airway Examination: normal oropharyngeal airway and neck mobility. Respiratory Examination: clear to auscultation. CV Examination: normal. Prophylactic Antibiotics: The patient does not require prophylactic antibiotics. Prior Anticoagulants: The patient has taken no anticoagulant or antiplatelet agents except for NSAID medication. ASA Grade Assessment: II - A patient with mild systemic disease. After reviewing the risks and benefits, the patient was deemed in satisfactory condition to undergo the procedure. The anesthesia plan was to use monitored anesthesia care (MAC). Immediately prior to administration of medications, the patient was re-assessed for adequacy to receive sedatives. The heart rate, respiratory rate, oxygen saturations, blood pressure, adequacy of pulmonary ventilation, and response to care were monitored throughout the procedure. The physical status of the patient was re-assessed after the procedure. After obtaining informed consent, the endoscope was passed under direct vision. Throughout the procedure, the patient's blood pressure, pulse, and oxygen saturations were monitored continuously. The Endoscope was introduced through the mouth, and advanced to the third part of the duodenum. Small bowel enteroscopy was deemed necessary. The upper GI endoscopy was accomplished without difficulty. The patient tolerated the procedure well. Scope In: 2:48:01 PM Scope Out: 2:51:33 PM Total Procedure Duration Time 0 hours 3 minutes 32 seconds Findings: The Z-line was irregular and was found 40 cm from the incisors. Biopsies were taken with a cold forceps for histology. Verification of patient identification for the specimen was done. Estimated blood loss was minimal. A small hiatal hernia was present. Patchy mildly erythematous mucosa without bleeding was found in the gastric body. Biopsies were taken with a cold forceps for histology. Verification of patient identification for the specimen was done. Estimated blood loss was minimal. Biopsies were taken with a cold forceps for Helicobacter pylori testing. Verification of patient identification for the specimen was done. Estimated blood loss was minimal. No gross lesions were noted in the entire examined duodenum. Impression: - Z-line irregular, 40 cm from the incisors. Biopsied. - Small hiatal hernia. - Erythematous mucosa in the gastric body. Biopsied. - No gross lesions in the entire examined duodenum. Recommendation: - Discharge patient to home. - Resume previous diet. - Continue present medications. - Await pathology results. Procedure Code(s): --- Professional --- 00970, Small intestinal endoscopy, enteroscopy beyond second portion of duodenum, not including ileum; with biopsy, single or multiple CPT copyright 2021 [employer]. All rights reserved. The codes documented in this report are preliminary and upon [employer] review may be revised to meet current compliance requirements. Dhiraj King DO 11/08/2024 2:57:35 PM This report has been signed electronically. Number of Addenda: 0 Note Initiated On: 11/08/2024 2:38 PM
--- NOTE | 2024-11-08 14:58 | OP.CCLET_ITS ---
11/08/2024 Phillip Burleson Re : Upper GI endoscopy procedure for Phyllis Sanchez Hollier Veronica This procedure was performed on Friday, November 08, 2024. My impressions and recommendations are as follows: Impressions : - Z-line irregular, 40 cm from the incisors. Biopsied. - Small hiatal hernia. - Erythematous mucosa in the gastric body. Biopsied. - No gross lesions in the entire examined duodenum. Recommendations : - Discharge patient to home. - Resume previous diet. - Continue present medications. - Await pathology results. My findings are described in the full procedure note, which is enclosed. If I can be of further assistance, please feel free to contact me at . Sincerely, Dhiraj Friend, 11/08/2024 2:57:35 PM This report has been signed electronically.
--- NOTE | 2024-11-08 15:00 | PCM.POST.ANE ---
Anesthesia: Postop Eval I Current Vital Signs Temperature: 97.7 F Pulse Rate: 89 Blood Pressure: 129/71 Respiratory Rate: 16 Pulse Ox: 100 Oxygen Delivery Method: Room Air Assessment Airway patent: Yes Spontaneous unlabored respirations: Yes Mental status: Awake and Calm nausea: No Vomiting: No Anesthesia Complication: No Fluid Hydration Crystalloid volume administer (ml): 700 Total IV fluid infused: 700 Progress Note Anesthesia document: Postop Eval 1 completed: Yes
--- NOTE | 2024-11-08 17:07 | PCM.POSTANE2 ---
Anesthesia Postop Eval I Sum Postop Eval Completion status Anesthesia document: Postop Eval 1 completed: Yes Anesthesia Postop Eval I Summary Anesthesia Postop Eval I Summary: Anesthesia Postop Eval I: Assessment Summary Airway patent Yes 11/08/24 15:01 [email or web address] Spontaneous unlabored Yes 11/08/24 15:01 [email or web address] respirations Mental status Awake,Calm 11/08/24 15:01 [email or web address] nausea No 11/08/24 15:01 [email or web address] Vomiting No 11/08/24 15:01 [email or web address] Anesthesia Postop Eval I: Fluid Summary Crystalloid volume administer 700 11/08/24 15:01 [email or web address] (ml) Colloids volume administered ( ml) Blood Product volume administered (ml) Total IV fluid infused 700 11/08/24 15:01 [email or web address] Anesthesia Postop Eval I: Summary Notes Anesthesia Complication No 11/08/24 15:01 [email or web address] Anesthesia Complication Comment: Post-operative progress note Anesthesia: Postop Eval II Evaluation Mental status: Awake and Calm Pain Level: 0 nausea: No Vomiting: No Complications Anesthesia Complication: No
== END 2024-11-08 15:41 | disposition home or self-care (01) ==
LOC: EN 13:06 → AC 13:07
PROVIDERS: PCP Nurse Practitioner; Referring Provider Nurse Practitioner; Visit Provider Internal Medicine Gastroenterology
PROC: 0DJ08ZZ Inspection of Upper Intestinal Tract, Via Natural or Artificial Opening Endoscopic (ICD-10-PCS; CPT 43235; principal; 2024-11-08 14:10)
DX: R10.33 Periumbilical pain (principal); K59.00 Constipation, unspecified; K44.9 Diaphragmatic hernia without obstruction or gangrene; Z87.891 Personal history of nicotine dependence; Z90.710 Acquired absence of both cervix and uterus
CPT/HCPCS: 43239; 88305; 88341; 88342; J2405

== ENCOUNTER → 2024-12-03 | Outpatient (CLI) | payer MEDICARE, OTHER, SELFPAY ==
--- OUTSIDE RECORDS SUMMARY | 2024-12-03 08:37 | XMS RPT_ITS | CCD ---
Author Organization [facility] CliniSynj Care Team Providers Care Yarn Man Name Role Phone Murphy Cuevas MD Primary Care Provider MD Benjamín Green Attending Provider Care Physician, No Primary Primary Care Provider Unavailable Dr. Herberth Rizo Attending Provider Care Physician, No Primary Referring Provider Un available Care Physician, No Primary Primary Care Provider Unavailable Care Physician, No Primary Referring Provider Un available MD Benjamín Green Attending Provider MD Benjamín Green Referring Provider MD Benjamín Green Other Provider Haagen LITIGATION SUPPORT ANALYST, LITIGATION SUPPORT ANALYST-C Alondra Primary Care Provider Murphy Cuevas MD Primary Care Provider Haagen LITIGATION SUPPORT ANALYST, LITIGATION SUPPORT ANALYST-C Alondra Referring Provider OLDER, LITIGATION SUPPORT ANALYST-C CHRISTINA Primary Care Provider OLDER, LITIGATION SUPPORT ANALYST-C CHRISTINA Referring Provider MD Benjamín Green Attending Provider Murphy Cuevas MD Primary Care Provider MICHAEL MANZANARES Attending Unavailable IMCHAEL MANZANARES Admitting Unavailable MURPHY CUEVAS Primary Care Unavailable OLDER LITIGATION SUPPORT ANALYST-C, CHRISTINA Primary Care Provider OLDER LITIGATION SUPPORT ANALYST-C, CHRISTINA Referring Provider Zi LITIGATION SUPPORT ANALYST-C, Melba Attending Provider Zi LITIGATION SUPPORT ANALYST-C, Melba Referring Provider Older FUR FARMER.PLY BANDER, Christina Unavailable OLDER LITIGATION SUPPORT ANALYST-C, CHRISTINA Primary Care Provider OLDER LITIGATION SUPPORT ANALYST-C, CHRISTINA Referring Provider [phone] Zi LITIGATION SUPPORT ANALYST-C, Melba Attending Provider Friend , Dr. Hearn Attending Provider Friend , Dr. Hearn Other Provider OLDER, CHRISTINA Attending Unavailable GANTA, MURPHY Primary Care Unavailable GANTA, MURPHY Referring Unavailable GANTA, MURPHY Primary Care Unavailable GLENNA, MICHAEL Attending Unavailable GLENNA, MICHAEL Referring Unavailable GANTA, MURPHY Primary Care Unavailable GLENNA, MICHAEL Attending Unavailable GANTA, MURPHY Primary Care Unavailable GLENNA, MICHAEL Attending Unavailable GANTA, MURPHY Primary Care Unavailable DUNG HOLMAN Attending Unavailable GANTA, MURPHY Primary Care Unavailable Zi, Melba Attending Unavailable OLDER, CHRISTINA Primary Care Unavailable OLDER, CHRISTINA Referring Unavailable OLDER, CHRISTINA Primary Care Unavailable Atanasov, Trish Consulting Unavailable Friend, Dhiraj Attending Unavailable OLDER, CHRISTINA Referring Unavailable Friend, Dhiraj Consulting Unavailable OLDER, CHRISTINA Primary Care Unavailable OLDER, CHRISTINA Referring Unavailable Friend, Dhiraj Consulting Unavailable Friend, Dhiraj Attending Unavailable OLDER, CHRISTINA Referring Unavailable Zi, Melba Attending Unavailable OLDER, CHRISTINA Primary Care Unavailable OLDER, CHRISTINA Primary Care Unavailable Friend, Dhiraj Attending Unavailable OLDER, CHRISTINA Referring Unavailable OLDER, CHRISTINA Primary Care Unavailable Atanasov, Trish Consulting Unavailable Friend, Dhiraj Attending Unavailable OLDER, CHRISTINA Referring Unavailable OLDER, CHRISTINA Primary Care Unavailable Buddy Shelton Attending Unavailabl e WarernestineannHemanter Referring Unavailabl e Zi, Melba Attending Unavailable Zi, Melba Referring Unavailable OLDER, CHRISTINA Primary Care Unavailable OLDER, CHRISTINA Primary Care Unavailable SalomónannHemanter Attending Unavailabl e Wartmann, Christopher Referring Unavailabl e OLDER, CHRISTINA Primary Care Unavailable ZiMelba Attending Unavailable OLDER, CHRISTINA Referring Unavailable Zi, Melba Attending Unavailable OLDER, CHRISTINA Primary Care Unavailable OLDER, CHRISTINA Referring Unavailable Medications Current Medications Medication Drug Class(es) Dates Sig (Normalized) Sig (Original) acetaminophen 500 mg oral tablet (1 source) Start: 10-27-2023 End: 11-17-2023 take 2 tablets by mouth every six hours as needed acetaminophen (TYLENOL EXTRA STRENGTH) 500 mg tablet Take 2 tablets by mouth every 6 hours as needed for pain for up to 21 days. 56 tablet 2 10/27/2023 11/17/2023 Active alendronic acid 10 mg oral tablet (20 sources) Bisphosphonate Start: 09-01-2022 End: 01-28-2024 take 1 tablet by mouth every week alendronate (FOSAMAX) 35 mg tablet Indications: post-menopausal osteoporosis prevention Take 1 tablet by mouth one time a week. 12 tablet 3 01/28/2024 Active Start: 12-19-2021 End: 03-31-2024 take 1 tablet by mouth every week Alendronate 10 mg tablet Active 10 mg PO EVERY WEEK March 31, 2024 3:30pm Start: 12-19-2021 Alendronate Ac tive 10 MG PO CRAFT December 19, 2021 12:00am Start: 03-18-2021 End: 08-30-2021 take 1 tablet by mouth every week alendronate (FOSAMAX) 35 mg tablet Indications: post-menopausal osteoporosis prevention Take 1 tablet by mouth one time a week. 12 tablet 3 03/18/2021 08/30/2021 Discontinued Comment on above: Take 1 tablet by annie one time a week. amoxicillin 875 mg / clavulanate 125 mg oral tablet (1 source) Penicillin-class Antibacterial Start: 2 End: 2 take 1 tablet by mouth twice daily amoxicillin-clavul anic acid (AUGMENTIN) 875-125 mg per tablet Take 1 tablet by mouth twice daily for 5 days. 10 tablet 0 04/28/2022 05/03/2022 Active Comment on above: Take 1 tablet by annie th twice daily for 5 days. calcium carbonate 1250 mg chewable tablet (20 sources) Start: 2 take 1 tablet by mouth once daily Calcium Carbonate (Calcium 500) 500 mg calcium (1,250 mg) tablet,chewable Active 500 mg PO DAILY December 19, 2021 12:00am Start: 05-22-2018 take 0.5 tablet by m out once daily calcium carbonate (CALCIUM 600) 600 mg calcium (1,500 mg) tab Take 0.5 tablets by mouth once daily. 05/22/2018 Active Comment on above: Take 0.5 tablets by mouth once daily. docusate sodium 100 mg oral capsule (2 sources) Start: 10-27-2023 End: 01-25-2024 take 1 capsule by mouth twice daily docusate sodium (COLACE) 100 mg capsule Take 1 capsule by mouth two times a day. 60 capsule 2 10/27/2023 01/25/2024 Active estradiol 0.1 mg/ml vaginal cream (20 sources) Estrogen Start: 03-31-2024 estradiol (ESTRACE) 0.01 % (0.1 mg/gram) vaginal cream Indications: Genitourinary syndrome of menopause apply one gram or soybean sized amount over the vaginal opening every night for 2 weeks then 2 evenings per week 42.5 g 3 03/31/2024 Active Start: 05-05-2023 End: 03-31-2024 estradiol (ESTRACE) 0.01 % ( 0.1 mg/gram) vaginal cream Indications: Genitourinary syndrome of menopause apply one gram or soybean sized amount over the vaginal opening every night for 2 weeks then 2 evenings per week 42.5 g 3 05/05/2023 03/31/2024 Discontinued Comment on above: apply one gram or so ybean sized amount over the vaginal opening every night for 2 weeks then 2 evenings per week fluticasone propionate 0.05 mg/actuat metered dose nasal spray (20 sources) Corticosteroid Start: 09-02-19 23 take 2 spray(s) by mouth once daily fluticasone (FLONASE) 50 mcg/actuation nasal spray Use 2 Sprays in each nostril once daily. Rinse mouth after use. 1 Each 3 09/01/2022 Active Comment on above: Use 2 Sprays in each nostril once daily. Rinse mouth after use. ibuprofen 600 mg oral tablet (1 source) Nonsteroidal Anti-inflammatory Drug Start: 10-27-19 24 End: 11-17-19 24 take 1 tablet by mouth every six hours as needed ibuprofen (MOTRIN) 600 mg tablet Take 1 tablet by mouth every 6 hours as needed for pain for up to 21 days. 28 tablet 2 10/27/2023 11/17/2023 Active lubiprostone 0.008 mg oral capsule (2 sources) Chloride Channel Activator Start: 06-09-20 25 take 1 capsule by mouth twice daily Lubiprostone (Amitiza) 8 mcg capsule Active 8 ug PO TWICE A DAY 60 October 24, 2024 12:00am Magnesium (6 sources) Start: 09-14-19 25 take 1 tablet by mouth once daily Magnesium 200 mg tablet Active 200 mg PO DAILY September 13, 2024 8:28am Start: 09-13-2024 take 1 tablet by annie twice daily Magnesium 200 mg tablet Active 200 mg PO TWICE A DAY September 13, 2024 8:28am Start: 05-30-2024 End: 09-13-2024 take 1 tablet by mouth once daily Magnesium 200 mg tablet Discontinued 200 mg PO DAILY May 30, 2024 1:00am September 13, 2024 8:28am mecobalamin 5 mg disintegrating oral tablet (12 sources) Start: 12-19-2021 take 1 tablet by mouth once daily Mecobalamin (Vitamin B12) 5,000 mcg tablet,disintegrating Active 5000 ug PO DAILY December 19, 2021 12:00am Start: 12-19-2021 Mecobalamin (V itamin B12) Active MCG PO December 19, 2021 12:00am oxyCODONE hydrochloride 5 mg oral tablet (1 source) Opioid Agonist Start: 10-27-2023 End: 10-30-2023 take 1 tablet by mouth every six hours as needed for pain oxyCODONE IR (ROXICODONE) 5 mg immediate release tablet Indications: Postoperative pain Take 1 tablet by mouth every 6 hours as needed for pain for up to 3 days. 5 tablet 0 10/27/2023 10/30/2023 Active polyethylene glycol 3350 52430 mg powder for oral solution (2 sources) Osmotic Laxative Start: 10-27-2023 End: 01-25-2024 polyethylene glycol 3350 (MIRALAX) 17 gram/dose powder Take 17 g by mouth once daily. Dissolve dose in 4 - 8 ounces of liquid and take as directed. 510 g 2 10/27/2023 01/25/2024 Active vit C/E/cuperic/zinc/lut ein (PRESERVISION LUTEIN ORAL) (20 sources) vit C/E/cuperic/zinc/lut ein (PRESERVISION LUTEIN ORAL) Take by mouth twice daily. Active vit C/E/cuperic/ zinc/lutein (PRESERVISION LUTEIN ORAL) Take by mouth twice daily. 0 Active Comment on above: Take by mouth twice daily. vitamin b12 1 mg oral tablet (20 sources) Vitamin B12 Start: 06-19-2021 take 1 tablet by mouth once daily cyanocobalamin (VITAMIN B-12) 1,000 mcg tab Take 1 tablet by mouth once daily. 90 tablet 3 06/19/2021 Active Comment on above: Take 1 tablet by [facility] once daily. Vitamins A,C,W-Bcbc-Umuuiu (Preservision Areds) 14,320-226-200 jyyr-tu-epoi capsule (12 sources) Start: 12-19-2021 Vitamins A,C,X-Wdrj-Tltcff (Preservision Areds) 14,320-226-200 retd-ri-wsba capsule Active 1 NMA PO TWICE A DAY December 19, 2021 12:00am Start: 12-19-2021 take 1 capsule by [facility] twice daily Vitamins A,C,Z-Ylka-Eldzyg (Preservision Areds) 14,320-226-200 bmuz-ma-tudh capsule Active 1 CAP PO TWICE A DAY December 18, 2021 11:00pm Start: 12-19-2021 take 1 capsule by [facility] twice daily Vitamins A,C,C-Duzi-Ohcyzd (Preservision Areds) 14,320-226-200 nwxo-ye-udjn capsule Active 1 CAP PO TWICE A DAY December 19, 2021 12:00am wheat dextrin 3000 mg powder for oral solution (3 sources) Start: 09-13-2024 Wheat Dextrin (Benefiber Clear Sf (Dextrin)) 3 gram/3.5 gram powder in packet Active 1 NMA PO daily September 13, 2024 12:00am mix into at least 4 oz water or juice before administering Completed/Discontinued Medications Medication Drug Class(es) Dates Sig (Normalized) Sig (Original) acetaminophen 325 mg / HYDROcodone bitartrate 5 mg oral tablet (11 sources) Opioid Agonist Start: 04-20-2022 End: 07-30-2023 Hydrocodone-Acetami nophen 5-325 mg tablet Discontinued 1 {tbl} PO EVERY 6 HOURS NEEDED as needed for Pain 04 19April 20, 2022 July 30, 2023 12:57pm Start: 04-20-2022 End: 07-30-2023 take 1 tablet by mouth every six hours as needed Hydrocodone-Acetaminophen Discontinued 1 TABLET PO EVERY 6 HOURS NEEDED 04 19April 20, 2022 July 30, 2023 12:57pm acetaminophen 325 mg / oxyCODONE hydrochloride 5 mg oral tablet (10 sources) Opioid Agonist Start: 04-23-2022 End: 07-30-2023 Oxycodone-Acetaminophen (Endocet) 5-325 mg tablet Discontinued 1 {tbl} PO Q4H as needed for pain 04 12April 23, 2022 July 30, 2023 12:57pm biotin 1 mg oral capsule (1 source) End: 06-18-2021 biotin 1 mg cap Take by mout h. 06/18/2021 Discontinued C,E,zinc,copper [id number] (OCUVITE ADULT 50 PLUS) 250-5-1 mg cap (6 sources) Start: 05-22-2018 End: 02-06-2022 C,E,zinc,copper [id number] ut (OCUVITE ADULT 50 PLUS) 250-5-1 mg cap Take 1 capsule by mouth once daily. 05/22/2018 02/06/2022 Discontinued Start: 05-22-2018 End: 02-06-2022 C,E,zinc,copper [id number] ut (OCUVITE ADULT 50 PLUS) 250-5-1 mg cap Take 1 capsule by mouth once daily. 0 05/22/2018 02/06/2022 Discontinued Start: 05-22-2018 C,E,zinc,coppe r [id number] (OCUVITE ADULT 50 PLUS) 250-5-1 mg cap Take 1 capsule by mouth once daily. 0 05/22/2018 Active Comment on above: Take 1 capsule by mo uth once daily. cholecalciferol 0.025 mg oral capsule (1 source) Vitamin D Start: 9 End: 2 take 1 capsule by mouth once daily Cholecalciferol, Vitamin D3, (VITAMIN D) 1,000 unit cap Take 1 capsule by mouth once daily. 05/22/2018 06/18/2021 Discontinued chondroitin sulfates 400 mg / glucosamine hydrochloride 500 mg oral capsule (20 sources) Start: 2 End: 4 Glucosamine-Chondroi tin 500-400 mg capsule Discontinued 1 NMA PO DAILY December 19, 2021 12:00am March 31, 2024 3:30pm give with meal/snack Start: 12-19-2021 take 1 capsule by [facility] once daily Glucosamine-Chondroitin Active 1 CAP PO DAILY December 19, 2021 12:00am give with meal/snack End: 10-16-2023 glucosamine/chondr craft A sod (GLUCOSAMINE-CHONDROITIN) 750-600 mg tab Take by mouth twice daily. 10/16/2023 Discontinued Comment on above: Take by mouth twice daily. dicyclomine hydrochloride 10 mg oral capsule (3 sources) Anticholinergic Start: 04-25-20 End: 10-25-19 take 1 capsule by mouth three times daily as needed for pain Dicyclomine 10 mg capsule Discontinued 10 mg PO THREE TIMES A DAY as needed for abdominal pain 60 April 25, 2024 1:00am October 24, 2024 9:03am L.acid/L.casei/B.bif/ B.jane/FOS (PROBIOTIC BLEND ORAL) (9 sources) End: 10-16-19 24 L.acid/L.casei/B.bi f/B.jane/FOS (PROBIOTIC BLEND ORAL) Take by mouth. 0 10/16/2023 Discontinued L.acid/L.casei/B .bif/B.jane/FOS (PROBIOTIC BLEND ORAL) Take by mouth. 0 Active Comment on above: Take by mouth. linaclotide 0.145 mg oral capsule (3 sources) Guanylate Cyclase-C Agonist Start : 07-04 End: 09-13 take 1 capsule by mouth once daily 30 minutes before breakfast Linaclotide (Linzess) 145 mcg capsule Discontinued 145 ug PO EVERY MORNING July 04, 2024 1:00am September 13, 2024 8:38am take 30 minutes before breakfast every morning methylPREDNISolone (1 source) Corticosteroid Start : 06-18 End: 06-24 methylPREDNISolone (MEDROL, JANES,) 4 mg Dose-Pack Indications: Right flank pain Follow dosing instructions, take with food. 1 Package 06/18/2021 06/24/2021 Tenapanor (Ibsrela) 50 mg tablet (3 sources) Start : 09-13 End: 10-24 take 1 tablet by mouth twice daily before breakfast Tenapanor (Ibsrela) 50 mg tablet Discontinued 50 mg PO TWICE A DAY 60 September 13, 2024 12:00am October 24, 2024 8:57am must administer immediately before breakfast and dinner Start: 09-13-2024 take 1 tablet by annie th twice daily before breakfast Tenapanor (Ibsrela) 50 mg tablet Active 50 mg PO TWICE A DAY 60 September 13, 2024 12:00am must administer immediately before breakfast and dinner Problems Active Problems Problem Classification Problem Date Documented Da te Episodic/Chronic Abdominal pain (14 sources) Abdominal pain; Translations: [Unspecified abdominal pain] Onset: 06-23-2024 07-04-2024 Episodic Administrative/social admission (1 source) Education and/or schooling finding; Translations: [Problems related to education and literacy, unspecified] 10-13-2023 Episodic Complications of surgical procedures or medical care (1 source) Postoperative adhesions of vagina; Translations: [Postprocedural adhesions of vagina] 11-08-2024 Episodic E Codes: Fall (11 sources) Fall; Translations: [Unspecified fall, initial encounter] 04-28-2022 Episodic Genitourinary symptoms and ill-defined conditions (6 sources) Mixed urinary incontinence; Translations: [Mixed incontinence] Onset: 02-22-2024 07-29-2023 Chronic Genitourinary symptoms and ill-defined conditions (2 sources) Increased frequency of urination; Translations: [Frequency of micturition] Episodic Immunizations and screening for infectious disease (1 source) Needs influenza immunization; Translations: [Encounter for immunization] 03-05-2023 Episodic Joint disorders and dislocations; trauma-related (20 sources) Tear of medial meniscus of knee; Translations: [Other tear of medial meniscus, current injury, right knee, initial encounter] Episodic Menopausal disorders (4 sources) Atrophy of vagina; Translations: [Postmenopausal atrophic vaginitis] Onset: 11-08-2024 07-29-2023 Chronic Nonmalignant breast conditions (1 source) Breast finding ; Translations: [Dense breast tissue] 03-06-2023 Episodic Nonspecific chest pain (11 sources) Chest wall pain; Translations: [Other chest pain] 04-28-2022 Episodic Osteoarthritis (20 sources) Osteoarthritis of right knee joint; Translations: [Unilateral primary osteoarthritis, right knee] Chronic Osteoporosis (12 sources) Osteoporosis; Translations: [Age-related osteoporosis without current pathological fracture] Onset: 10-16-2023 10-16-2023 Chronic Other bone disease and musculoskeletal deformities (5 sources) Osteopenia; Translations: [Other specified disorders of bone density and structure, unspecified site] Episodic Other circulatory disease (1 source) Elevated blood pressure; Translations: [Elevated blood-pressure reading, without diagnosis of hypertension] 03-31-2024 Episodic Other connective tissue disease (8 sources) Synovial cyst of right popliteal space; Translations: [Synovial cyst of popliteal space [Ho], right knee] 03-03-2022 Episodic Other connective tissue disease (11 sources) Synovial cyst of popliteal space [Ho], right knee; Translations: [Synovial cyst of popliteal space] Episodic Other connective tissue disease (2 sources) Pain of toe of right foot; Translations: [Pain in right toe(s)] 03-05-2023 Episodic Other connective tissue disease (2 sources) Pain in right foot; Translations: [Pain in right foot] 03-05-2023 Episodic Other diseases of bladder and urethra (1 source) Urethral intrinsic sphincter deficiency; Translations: [Intrinsic sphincter deficiency (ISD)] 02-22-2024 Episodic Other fractures (6 sources) Fracture of rib; Translations: [Fracture of one rib, left side, initial encounter for closed fracture] 04-28-2022 Episodic Other fractures (5 sources) Fracture of left rib; Translations: [Fracture of one rib, left side, initial encounter for closed fracture] 04-28-2022 Episodic Other gastrointestinal disorders (3 sources) Altered bowel function; Translations: [Change in bowel habit] 03-31-2024 Episodic Other gastrointestinal disorders (10 sources) Constipation; Translations: [Constipation, unspecified] 03-31-2024 Episodic Other gastrointestinal disorders (2 sources) Constipation, unspecified; Translations: [Constipation, unspecified] Onset: 06-23-2024 Episodic Other lower respiratory disease (20 sources) Solitary nodule of lung; Translations: [Solitary pulmonary nodule] Onset: 10-16-2023 04-28-2022 Episodic Other nervous system disorders (1 source) Other acute postprocedural pain; Translations: [Postoperative pain] Onset: 10-27-2023 Episodic Other non-traumatic joint disorders (20 sources) Pain in right knee; Translations: [Right knee pain] Episodic Other non-traumatic joint disorders (1 source) Chronic pain of right upper limb; Translations: [Pain in right shoulder] 06-18-2021 Episodic Other screening for suspected conditions (not mental disorders or infectious disease) (1 source) Plain X-ray result abnormal; Translations: [Abnormal findings on diagnostic imaging of other specified body structures] 06-19-2021 Chronic Other upper respiratory infections (2 sources) Acute sinusitis; Translations: [Acute sinusitis, unspecified] Episodic Prolapse of female genital organs (20 sources) Midline cystocele; Translations: [Cystocele, midline] Onset: 10-26-2023 Chronic Residual codes; unclassified (2 sources) Postmenopausal state; Translations: [Asymptomatic menopausal state] 09-28-2023 Episodic Residual codes; unclassified (1 source) Postoperative state; Translations: [Other specified postprocedural states] 11-08-2024 Episodic Residual codes; unclassified (1 source) Other specified postprocedural states; Translations: [Post-operative state] Onset: 11-08-2024 Episodic Spondylosis; intervertebral disc disorders; other back problems (20 sources) Degeneration of lumbar intervertebral disc; Translations: [Other intervertebral disc degeneration, lumbar region] Onset: 04-08-2021 04-08-2021 Chronic Unclassified (1 source) K59.00 - Constipation, unspecified,R10.33 - Periumbilical pain Past or Other Problems Problem Classification Problem Date Documented Da te Episodic/Chronic Nutritional deficiencies (20 sources) Cobalamin deficiency; Translations: [Deficiency of other specified B group vitamins] Onset: 06-19-2021 06-19-2021 Episodic Other gastrointestinal disorders (2 sources) Change in bowel habit; Translations: [Change in bowel habit] Onset: 03-31-2024 Episodic Other nervous system disorders (12 sources) H/O: epilepsy; Translations: [Personal history of other diseases of the nervous system and sense organs] Onset: 10-16-2023 10-16-2023 Episodic Other screening for suspected conditions (not mental disorders or infectious disease) (12 sources) Patient encounter status; Translations: [Encounter for screening mammogram for malignant neoplasm of breast] Onset: 03-08-2024 Episodic Other upper respiratory disease (1 source) Nasal congestion; Translations: [Nasal congestion] Onset: 06-06-2024 Episodic Spondylosis; intervertebral disc disorders; other back problems (20 sources) Chronic low back pain; Translations: [Chronic left-sided low back pain without sciatica] Onset: 05-22-2018 Resolved: 10-16-2023 05-22-2018 Episodic Results Test Name Value Interpretation Reference Range Facility [facility] 11-08-2024 CNOV Office Visit (GYURWP ) PHYLLIS SANCHEZ ([id number]) 1950 F Date Time Provider Department 11/08/24 8:30 AM DUNG HOLMAN During your visit today, we recorded the following information about you: Pulse Blood pressure Weight 90/minute 145/84 47.2 kg Dung Holman APRN.CNP 11/08/2024 8:36 AM Signed Female Pelvic Medicine AND Reconstructive Surgery Follow-Up CHIEF COMPLAINT: Phyllis Sanchez is a 73 year old female, who presents for a follow-up of pelvic organ prolapse repair. History since last visit: Doing well. No complaints. Using vaginal estrogen cream twice weekly. Denies pain with intercourse. 10/27/23 Dr. Manzanares: Transvaginal hysterectomy, Right salpingectomy , Uterosacral ligament suspension of the vaginal vault/intraperitoneal colpopexy, Anterior colporrhaphy, Perineorrhaphy, and Cystoscopy Bulkamid 02/22/24 with Glenna. No issues. Urinary Incontinence: no Voiding Dysfunction: no Urinary Frequency: no Urinary Urgency: no Prolapse Symptoms: no Defecatory Dysfunction: no Fecal Incontinence: no Abnormal Bleeding: no Pain: no Abnormal Vaginal Discharge: no I have confirmed and edited as necessary, the PFSH obtained by others. Dung Holman APRN.PLY BANDER 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 SENSITIVE EXAM: The sensitive examination was discussed with the Patient or Patient's Authorized Health Club Attendant. As applicable, any other physician, advance practice provider, medical student, or other health professional student that will be observing or involved in the sensitive examination for educational or training purposes was discussed with the Patient or Authorized Health Club Attendant. The Patient or Authorized Health Club Attendant has agreed to proceed with the sensitive examination. (Sensitive examination includes inspection and/or palpation of the breasts, pelvis, prostate and anorectal regions). OBJECTIVE: BP 145/84 Pulse 90 Wt 104 lb (47.2kg) General: Well appearing, alert, in no acute distress, well-hydrated, well nourished. Abdomen: Deferred Pelvic: Ext. Genitalia: No lesions or other abnormalities Vagina: atrophic epithelium and adhesions noted mid-vagina POP-Q: Prolapse Noted: No Cervix: Absent Urethra: Normal Bimanual: No tenderness, No masses Rectovaginal: Deferred UA results: N/A Bladder scan: N/A Plan: Assessment AND Plan Post-operative state - Doing well. JEMIMA (stress urinary incontinence, female) - No concerns. Vaginal atrophy - Continue using vaginal estrogen cream twice weekly. Vaginal adhesions, postprocedural - Exam findings discussed. - Denies pain with intercourse. I spent a total of 20 minutes on the date of the service which included preparing to see the patient, [id number] patient care, completing clinical documentation, performing a medically appropriate examination, and counseling and educating the patient/family/caregi karl. 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 - fluticasone (FLONASE) 50 mcg/actuation nasal spray Use 2 Sprays in each nostril once daily. Rinse mouth after use. - vit C/E/cuperic/zinc/lute in (PRESERVISION LUTEIN ORAL) Take by mouth twice daily. - cyanocobalamin (VITAMIN B-12) 1,000 mcg tab Take 1 tablet by mouth once daily. - calcium carbonate (CALCIUM 600) 600 mg calcium (1,500 mg) tab Take 0.5 tablets by mouth once daily. Problem List As Of Date 11/08/2024 Noted Resolved Chronic left-sided low back pain without sciati*05/22/2018 10/16/2023 DDD (degenerative disc disease), lumbar [M51.36*04/08/2021 Vitamin B12 deficiency [E53.8] 06/19/2021 Solitary pulmonary nodule [R91.1] 10/16/2023 Osteoporosis [M81.0] 10/16/2023 Hx of seizure disorder [Z86.69] 10/16/2023 Uterovaginal prolapse, incomplete [N81.2] 10/26/2023 Cystocele, midline [N81.11] 10/26/2023 Rectocele [N81.6] 10/26/2023 Disposition: Return in about 6 months (around 05/10/2025). Follow-up and Disposition History for Encounter Date Provider Department Center 11/08/2024 [id number], JAIME L RAVI Dotson Encounter Status:Closed by DUNG HOLMAN on 11/08/24 Normal [facility] EGD Reporton 11-08-2024 EGD Report [facility] Medical Records Department [address] [place] [address] EGD Report MR#: [id number] Acct: [id number] Name: PHYLLIS SANCHEZ Rep #: [id number] : 1950 73 From: Dhiraj Friend DO PCP: MEIR BURLESONC Status:[facility] Patient Name: Phyllis Sanchez Procedure Date: 11/08/2024 2:38 PM Date of : 1950 Age: 73 Procedure: Upper GI endoscopy Indications: Epigastric abdominal pain, Functional Dyspepsia Providers: Dhiraj King DO Referring MD: Nano Burleson Medicines: Monitored Anesthesia Care Patient Profile: This is a 73 year old female. Refer to note in patient chart for documentation of history and physical. Patient has symptoms of chronic abdominal distention, chronic abdominal pain, chronic dyspepsia and chronic nausea. Complications: No immediate complications. Procedure: Pre-Anesthesia Assessment: - Prior to the procedure, a History and Physical was performed, and patient medications and allergies were reviewed. The patient is competent. The risks and benefits of the procedure and the sedation options and risks were discussed with the patient. All questions were answered and informed consent was obtained. Patient identification and proposed procedure were verified by the physician in the pre-procedure area. Mental Status Examination: alert and oriented. Airway Examination: normal oropharyngeal airway and neck mobility. Respiratory Examination: clear to auscultation. CV Examination: normal. Prophylactic Antibiotics: The patient does not require prophylactic antibiotics. Prior Anticoagulants: The patient has taken no anticoagulant or antiplatelet agents except for NSAID medication. ASA Grade Assessment: II - A patient with mild systemic disease. After reviewing the risks and benefits, the patient was deemed in satisfactory condition to undergo the procedure. The anesthesia plan was to use monitored anesthesia care (MAC). Immediately prior to administration of medications, the patient was re-assessed for adequacy to receive sedatives. The heart rate, respiratory rate, oxygen saturations, blood pressure, adequacy of pulmonary ventilation, and response to care were monitored throughout the procedure. The physical status of the patient was re-assessed after the procedure. After obtaining informed consent, the endoscope was passed under direct vision. Throughout the procedure, the patient's blood pressure, pulse, and oxygen saturations were monitored continuously. The Endoscope was introduced through the mouth, and advanced to the third part of the duodenum. Small bowel enteroscopy was deemed necessary. The upper GI endoscopy was accomplished without difficulty. The patient tolerated the procedure well. Scope In: 2:48:01 PM Scope Out: 2:51:33 PM Total Procedure Duration Time 0 hours 3 minutes 32 seconds Findings: The Z-line was irregular and was found 40 cm from the incisors. Biopsies were taken with a cold forceps for histology. Verification of patient identification for the specimen was done. Estimated blood loss was minimal. A small hiatal hernia was present. Patchy mildly erythematous mucosa without bleeding was found in the gastric body. Biopsies were taken with a cold forceps for histology. Verification of patient identification for the specimen was done. Estimated blood loss was minimal. Biopsies were taken with a cold forceps for Helicobacter pylori testing. Verification of patient identification for the specimen was done. Estimated blood loss was minimal. No gross lesions were noted in the entire examined duodenum. Impression: - Z-line irregular, 40 cm from the incisors. Biopsied. - Small hiatal hernia. - Erythematous mucosa in the gastric body. Biopsied. - No gross lesions in the entire examined duodenum. Recommendation: - Discharge patient to home. - Resume previous diet. - Continue present medications. - Await pathology results. Procedure Code(s): --- Professional --- 26194, Small intestinal endoscopy, enteroscopy beyond second portion of duodenum, not including ileum; with biopsy, single or multiple CPT copyright 2021 [employer]. All rights reserved. The codes documented in this report are preliminary and upon surplus property disposal agent review may be revised to meet current compliance requirements. Dhiraj King DO 11/08/2024 2:57:35 PM This report has been signed electronically. Number of Addenda: 0 Note Initiated On: 11/08/2024 2:38 PM 11/08/24 1457 Date Dhiraj Bartlettignbrenda Signature: Date (if indicated) CC: NANO MARTIN; Dhiraj King DO Date Dictated: 11/08/24 7908 Date Transcribed: Customer Care Voice Consultant: JOHNY Signed [facility] Immunohistochemical Stainson 11-08-2024 Immunohistochemical Stains -------- Patient Age/Sex Location Account Attending Physician -------- PHYLLIS SANCHEZ 73/F EN [id number] Dhiraj King DO -------- Specimen: [id number] Received: 11/08/24 Status: LOU Lino Num: [id number] Spec Type: EGD BIOPSY Subm Dr: Dhiraj Kign DO HEADBRENDA OPERATION: EGD, biopsy PRE-OP DIAGNOSIS: Constipation, abdominal pain, abnormal CT scan, bladder TISSUE SUBMITTED: A- Gastric body biopsy, B- Distal esophagus biopsy -------- MICROSCOPIC DIAGNOSIS A. Gastric body, biopsy: - Antral-like mucosa with intestinal metaplasia, negative for dysplasia - see note. - IHC negative for H.pylori organisms. Note: IHC for Chromogranin highlights nodular and linear ECL-cell hyperplasia. 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 Recommend clinical correlation and consider serologic testing for anti-parietal cell and anti-intrinsic factor antibodies. B. Distal esophagus, biopsy: - Squamous mucosa with reactive changes. - Columnar mucosa with goblet cell metaplasia - see note. - Negative for dysplasia. Note: The diagnosis depends on the location of the biopsy and the extent of the mucosal irregularity. If the biopsy originates from the tubular esophagus and the mucosal irregularity extends at least 1 cm above the top of the gastric folds, this represents Montez mucosa. If the biopsy originates from the gastric cardia and/or the mucosal irregularity is less than 1 cm in extent, this represents intestinal metaplasia. MICROSCOPIC DESCRIPTION Slides are reviewed. GROSS DESCRIPTION A. Received in fixative is one container labeled with the patient's name and designated Gastric body biopsy. The specimen consists of two irregular fragments of light rodriguez soft tissue that in aggregate measure 0.4 and 0.5 cm. The specimen is totally submitted in one cassette. B. Received in fixative is one container labeled with the patient's name and designated Distal esophagus biopsy. The specimen consists of two irregular fragments of light rodriguez soft tissue that in aggregate measure 0.3 and 0.4 cm. The specimen is totally submitted in one cassette. Kathe 11/09/2024 CPT:79093q3,79266,883 41x2 -------- Patient Age/Sex Location Account Attending Physician -------- PHYLLIS SANCHEZ 73/F EN [id number] Dhiraj King DO -------- Signed (signature on file) Dr. Leslie Rolon MD 11/22/24 1330 -------- Normal [facility] Comment on above: Performed By: #### [facility] #### [facility] [address] [place] [place], [address] MR/POSTOP.ANE 11-08-2024 MR/POSTOP.[facility] Medical Records Department [address] [place] [address] Anesthesia Postop Eval I 11/08/24 1500 MR#: [id number] Acct: [id number] Name: PHYLLIS SANCHEZ Rep #: [id number] : 1950 73 From: David Jeffries PCP: CHRISTINA MARTIN, LITIGATION SUPPORT ANALYST-C Status:REG SDC Y Race: C Location: [place] [address] Anesthesia: Postop Eval I Current Vital Signs Temperature: 97.7 F Pulse Rate: 89 Blood Pressure: 129/71 Respiratory Rate: 16 Pulse Ox: 100 Oxygen Delivery Method: Room Air Assessment Airway patent: Yes Spontaneous unlabored respirations: Yes Mental status: Awake and Calm nausea: No Vomiting: No Anesthesia Complication: No Fluid Hydration Crystalloid volume administer (ml): 700 Total IV fluid infused: 700 Progress Note Anesthesia document: Postop Eval 1 completed: Yes 11/08/24 1501 Date David Valadez Signature: Date CC: Signed Normal [facility] MR/[id number] 11-08-2024 MR/POSTOPAN2 [facility] Medical Records Department [address] [place] [address] Anesthesia Postop Eval II 11/08/241706 MR#: [id number] Acct: [id number] Name: PHYLLIS SANCHEZ Rep #: [id number] : 1950 73 From: Jeane Alafro CRNA PCP: CHRISTINA MARTIN NP-C Status:[facility] Y Race: C Location: [place] Anesthesia Postop Eval I Sum Postop Eval Completion status Anesthesia document: Postop Eval 1 completed: Yes Anesthesia Postop Eval I Summary Anesthesia Postop Eval I Summary: Anesthesia Postop Eval I: Assessment Summary Airway patent Yes 11/08/24 15:01 [email or web address] Spontaneous unlabored Yes 11/08/24 15:01 [email or web address] respirations Mental status Awake,Calm 11/08/24 15:01 [email or web address] nausea No 11/08/24 15:01 [email or web address] Vomiting No 11/08/24 15:01 [email or web address] Anesthesia Postop Eval I: Fluid Summary Crystalloid volume administer 700 11/08/24 15:01 [email or web address] (ml) Colloids volume administered ( ml) Blood Product volume administered (ml) Total IV fluid infused 700 11/08/24 15:01 [email or web address] Anesthesia Postop Eval I: Summary Notes Anesthesia Complication No 11/08/24 15:01 [email or web address] Anesthesia Complication Comment: Post-operative progress note Anesthesia: Postop Eval II Evaluation Mental status: Awake and Calm Pain Level: 0 nausea: No Vomiting: No Complications Anesthesia Complication: No 11/08/241706 Date Jeane Kobpaporeny ESQUIVEL Cosigner Signature: Date CC: Signed Normal [facility] Gastroenterology Visit Repor ton 10-24-2024 Gastroenterology Visit Report [facility] Gastroenterology [address] [place] [address] OFFICE VISIT Date of Service: 10/24/24 MR#: [id number] Acct: [id number] Name: PHYLLIS SANCHEZ Rep #: [id number] : 1950 Provider: NANO santa Age/Sex: 73/F Location[place] [facility] Status: Signed Intake Vital Signs 09/13/24 08:32 10/24/24 08:35 Height 5 ft 5 ft Weight: 107 lb 105 lb 8 oz BMI 20.9 20.6 BP 136/85 H 153/84 H Respiration 16 16 Pulse 75 70 Pulse Oximetry (%) 96 97 Oxygen Delivery Method room air room air Intake Visit Reasons: CT scan results Chief Complaint: bowel changes and abdominal discomfort Registered Dental Hygienist Required: No Accompanied by: Self Is patient in pain?: Yes Allergies No Known Allergies Allergy (Verified 07/04/24 13:05) Have you fallen in the past year?: No PFSH Medical History Post-menopausal Arthritis PONV (postoperative nausea and vomiting) Leg cramps Wears glasses Alcohol use Seizures Former smoker Synovial cyst of popliteal space [Ho], right knee Tear of medial meniscus of right knee Osteoarthritis of right knee Right knee pain Surgical History History of rhinoplasty (05/03/24) History of partial hysterectomy ( 10/2023) History of arthroplasty of right knee ( 2021) History of hand surgery Family History Mother Hypertension CVA (cerebral vascular accident) Social History household members: spouse Smoking Status: Former smoker alcohol intake: current HPI HPI Chief Complaint: bowel changes and abdominal discomfort Details: PHYLLIS SANCHEZ, is a 73 F who presents to the office today for OV 09/13/2024 73-year-old female presents for follow-up of abdominal pain and constipation. She was last seen in the office on 07/04/2024 and had complaints of intermittent, deep, sharp abdominal pain that would wake her early in the morning at least 5 days a week. She had reported pain dissipated with getting up and moving or a bowel movement. She was asked to start Linzess 145 mcg once daily. She reports improvement in bowel frequency with Linzess but no improvement in abdominal pain. In addition OOP cost was $500. She is presently taking Benefiber 1-2 times a day and magnesium OTC supplement twice daily. She has a bowel movement daily but reports stools are small. She does endorse minimal improvement in lower abdominal discomfort with a bowel movement. She denies any weight loss or bleeding. I have ordered a CT scan for further evaluation of abdominal pain and she will try Ibsrela 50 mg twice daily in the interim. Patient Instructions: Ibsrela 50mg BID Complete CT Hold Magnesium when you start Ibsrela, may add back if needed Will enroll in PAT for Ibsrela if not covered benefit COLON 06/01/2024 - TI biopsy unremarkable - Diverticulosis in the recto-sigmoid colon, in the sigmoid colon, at the hepatic flexure, in the ascending colon and in the cecum. - Mild inflammation was found in the ileum secondary to ileitis. Biopsied. 10/14/[address] scan reveals constipation, possible bladder lesion and borderline gastric wall thickening (possibly related to under distension of the stomach). - this is a change from 2022 - partial hysterectomy, oophorectomy, bladder suspension 2023 - Bulkamid to prevent urinary leakage 2023 - UroGYN Dr. Manzanares - [facility] - she reports about 10 days ago she switched back to fiber and magnesium --- reports she was taking Magnesium and Fiber when she had CT completed 10/14 which revealed constipation - with Ibsrela once daily or 1/2 tablet daily she had uncontrolled diarrhea - she is taking psyllium powder 1tbsp BID - Magnesium capsules one capsule daily - she reports with the magnesium and fiber she has a BM 1-2x a day, small stools, soft - denies any diarrhea - denies any weight loss - Linzess was too expensive and caused diarrhea - reports she did take Linzess for two weeks - she did not take Ibsrela daily for two weeks, unable to tolerate diarrhea - discussed likely overflow - she has increased her activity - water intake is good - denies any HB, indigestion, N/V - denies any dysphagia ROS Const Constitutional: No fatigue, fever(s) or weight change ENT ENT: No difficulty swallowing Gastro GI: Positive for abdominal pain and bloating; No belching, change in bowel habits, change in stool character, coffee ground emesis, cramping, diarrhea, heartburn, difficulty swallowing, feeling full early, excessive flatus, incontinent of stools, Vomiting blood/hematemesis, Blood in stool, loose stools, Black,tarry stools, nausea/dyspepsia, pain with (more content not included)... Normal [facility] Abdomen/Pelvis WITH Contrast on 10-14-2024 Abdomen/Pelvis WITH Contrast [facility] Imaging Services [address] [place] [address] Abdomen/Pelvis WITH Contrast MR#: [id number] Acct: [id number] Name: PHYLLIS SANCHEZ Rep #: [id number] : 1950 F 73 From: Ralph Lawler MD PCP: CHRISTINA MARTIN LITIGATION SUPPORT ANALYST-C Status: REG CLI Study: Abdomen/Pelvis WITH Contrast Date of Exam: Exam# [id number] Ordering Dr: Melba Pinon LITIGATION SUPPORT ANALYST- C PROCEDURE: ABDOMEN/PELVIS WITH CONTRAST 10/14/2024 REASON FOR EXAM: LOWER ABDOMINAL PAIN TECHNIQUE: Abdomen and pelvis CT with intravenous contrast. Coronal and Sagittal reconstruction series were provided. PATIENT PREPARATION: Per protocol Enteric contrast was administered. CONTRAST: Isovue 370 VOLUME: 100 mL. One or more dose reduction techniques were used (e.g., Automated exposure control, adjustment of the mA and/or kV according to patient size, use of iterative reconstruction technique. RADIATION DOSE SUMMARY: CTDlvol: 16.62+ 5.50 mGy DLP: 260.96 mGycm COMPARISON: 03/17/2023. FINDINGS: Similar densities of the lung bases which may represent scar. The peripheral soft tissues are unremarkable. Degenerative changes of the spine most pronounced at L3-4. Mild to moderate atherosclerosis. Normal caliber abdominal aorta. No suspicious lymphadenopathy. The liver, gallbladder, pancreas, spleen, and adrenal glands are unremarkable. Symmetric enhancement of the bilateral kidneys. No nephrolithiasis. No hydroureteronephrosis . Left kidney simple renal sinus cysts. Possible small lesion abutting the posteroinferior wall of the urinary bladder (coronal image 56 of 97). Normal caliber large and small bowel. Normal caliber appendix. No surrounding inflammatory changes. Dense colonic stool. Borderline gastric wall thickening. CT/Abdomen/Pelvis WITH Contrast IMPRESSION: Possible urinary bladder lesion. Further characterization with ultrasound is recommended. Borderline gastric wall thickening which may be due to underdistention or gastritis. Constipation. Reading Location: [place] [address] CC: NANO MARTIN; NANO Pinon Customer Care Voice Consultant: Signed Normal [facility] Gastroenterology Visit Repor ton 09-13-2024 Gastroenterology Visit Report [facility] Gastroenterology [address] [place] [address] OFFICE VISIT Date of Service: 09/13/24 MR#: [id number] Acct: [id number] Name: PHYLLIS SANCHEZ Rep #: [id number] : 1950 Provider: NANO santa Age/Sex: 73/F Location[place] [facility] Status: Signed Intake Vital Signs 07/04/24 13:06 09/13/24 08:32 Height 5 ft 5 ft Weight: 106 lb 4 oz 107 lb BMI 20.7 20.9 BP 142/90 H 136/85 H Respiration 18 16 Pulse 75 Pulse Oximetry (%) 96 96 Oxygen Delivery Method room air room air Intake Visit Reasons: 2 M FU Chief Complaint: bowel changes and abdominal discomfort Registered Dental Hygienist Required: No Is patient in pain?: No Allergies No Known Allergies Allergy (Verified 07/04/24 13:05) Medications ???Medication ???Instructions ???Recorded ???Confirmed ???Type calcium carbonate (Calcium 500) 500 mg PO DAILY 12/19/21 09/13/24 History mecobalamin (vitamin B12) 5,000 5,000 mcg PO DAILY 12/19/21 History mcg disintegrating tablet vitamins A,C,M-dlvm-fpsjvd 4,296 1 cap PO BID 12/19/21 09/13/24 His tory mcg-226 mg-90 mg capsule (PreserVision AREDS) alendronate 10 mg tablet 10 mg PO .once a week 03/31/24 History dicyclomine 10 mg capsule 10 mg PO TID PRN abdominal pain 09/13/24 Rx #60 caps magnesium 200 mg tablet 200 mg PO BID 09/13/24 09/13/24 Hi story tenapanor 50 mg tablet (Ibsrela) 50 mg PO BID #60 tabs 09/13/24 Rx wheat dextrin 3 gram/3.5 gram oral 1 packet PO QDAY 09/13/24 History powder packet (Benefiber Clear Sugar Free(dextrin)) Have you fallen in the past year?: No Nurse's Note: She doesn't feel much different from when she was here last. She did try the Linzess and it cleaned her out good but didn't do much for the pain and was very expensive so she didn't pick it up at the pharmacy. [facility] Medical History Post-menopausal Arthritis PONV (postoperative nausea and vomiting) Leg cramps Wears glasses Alcohol use Seizures Former smoker Synovial cyst of popliteal space [Ho], right knee Tear of medial meniscus of right knee Osteoarthritis of right knee Right knee pain Surgical History History of rhinoplasty (05/03/24) History of partial hysterectomy ( 10/2023) History of arthroplasty of right knee ( 2021) History of hand surgery Family History Mother Hypertension CVA (cerebral vascular accident) Social History household members: spouse Smoking Status: Former smoker alcohol intake: current HPI HPI Chief Complaint: bowel changes and abdominal discomfort Details: PHYLLIS SANCHEZ, is a 73 F who presents to the office today for OV 07/04/2024 73y/o female presents for follow-up of abdominal pain and constipation. Colonoscopy was completed 06/01/2024 and unremarkable. She reports her bowel habits are more regular with fiber, reporting she is having a BM daily. She continues to complain of intermittent deep, sharp abdominal pain that wakes her early in the morning at least 5 days a week. Reports the pain dissipates once she gets up and moves around or has a BM. She has noted an improvement in frequency of stools with increased fiber intake. She will start Linzess 145mcg once daily and follow-up in 10-12 weeks. Patient Instructions: Continue Benefiber daily Continue to increase water intake Hold Magnesium at this time Start Linzess 145mcg once daily Call in 3 weeks with symptom update Follow-up in the office in 10-[address] 02/2023 Large amount of fecal material is seen in the colon. - she is continuing to experience heavy aching abdominal pain for the past couple years - denies any weight loss - if she has a BM this helps the abdominal pain - she has a BM daily, but stools can be small - denies any weight loss or bleeding - rarely taking dicyclomine, states it does not help - getting up and moving helps alleviate pain - denies any straining with BM - she has increased her water intake - she is eating a high fiber diet - Benefiber QD-BID - Magnesium BID - bladder suspension, hysterectomy October 2023 - one ovary remaining - reports the Linzess 145mcg x8 days did clean out her stools but she did not think this helped the pain much - reports cost was $500 and she could not afford this - reports the more she moves the better she feels - symptoms do not prevent her from doing things ROS Const Constitutional: No fatigue, fever(s) or weight change ENT ENT: No difficulty swallowing Gastro GI: Positive for abdominal pain, bloating and constipatio (more content not included)... Normal [facility] Gastroenterology Visit Repor ton 07-04-2024 Gastroenterology Visit Report [facility] Gastroenterology [address] [place] [address] OFFICE VISIT Date of Service: 07/04/24 MR#: [id number] Acct: [id number] Name: PHYLLIS SANCHEZ Rep #: [id number] : 1950 Provider: NANO santa Age/Sex: 73/F Location[place] [facility] Status: Signed Intake Vital Signs 06/01/24 05:52 07/04/24 13:06 Height 5 ft 5 ft Weight: 106 lb 4 oz BMI 20.7 BP 142/90 H Respiration 18 Pulse Oximetry (%) 96 Oxygen Delivery Method room air Intake Visit Reasons: Follow up Chief Complaint: bowel changes and abdominal discomfort Registered Dental Hygienist Required: No Is patient in pain?: No Allergies No Known Allergies Allergy (Verified 07/04/24 13:05) Medications ???Medication ???Instructions ???Recorded ???Confirmed ???Type calcium carbonate (Calcium 500) 500 mg PO DAILY 12/19/21 07/04/24 History mecobalamin (vitamin B12) 5,000 5,000 mcg PO DAILY 12/19/21 History mcg disintegrating tablet vitamins A,C,C-cqmh-hdsrpb 4,296 1 cap PO BID 12/19/21 07/04/24 His tory mcg-226 mg-90 mg capsule (PreserVision AREDS) alendronate 10 mg tablet 10 mg PO .once a week 03/31/24 History dicyclomine 10 mg capsule 10 mg PO TID PRN abdominal pain 07/04/24 Rx #60 caps magnesium 200 mg tablet 200 mg PO DAILY 05/30/24 07/04/24 History linaclotide 145 mcg capsule 145 mcg PO QAM #30 caps 07/04/24 0 07/04/24 Rx (Linzess) Have you fallen in the past year?: No PFSH Medical History Post-menopausal Arthritis PONV (postoperative nausea and vomiting) Leg cramps Wears glasses Alcohol use Seizures Former smoker Synovial cyst of popliteal space [Ho], right knee Tear of medial meniscus of right knee Osteoarthritis of right knee Right knee pain Surgical History History of rhinoplasty (05/03/24) History of partial hysterectomy ( 10/2023) History of arthroplasty of right knee ( 2021) History of hand surgery Family History Mother Hypertension CVA (cerebral vascular accident) Social History household members: spouse Smoking Status: Former smoker alcohol intake: current HPI HPI Chief Complaint: bowel changes and abdominal discomfort Details: PHYLLIS SANCHEZ, is a 73 F who presents to the office today for OV 03/31/2024 73y/o female presents for consultation of abdominal pain. CBC and BMP were unremarkable 03/21/2024. CT completed one year ago was consistent with constipation. She reports a change in bowel habits with a decrease in frequency of stools over the past year. She complains of lower abdominal pain x1 year, worse over the past 6 months. Stools have changed to several small hard pieces daily. She denies any bleeding or weight loss. Denies any dietary or medication changes. I have recommended a high fiber diet with the addition of Benefiber and magnesium supplement daily. She will schedule colonoscopy and follow-up via portal or telephone in 2 weeks with symptoms update. Patient Instructions: 1. Benefiber 2 tsp once a day in 8 ounces of water after breakfast 2. Magnesium supplement twice a day 3. Prunes 2-3 a day 4. High fiber diet 5. Call in 2 weeks with symptom update 6. Colonoscopy COLON 06/01/2024 - TI biopsy unremarkable - Diverticulosis in the recto-sigmoid colon, in the sigmoid colon, at the hepatic flexure, in the ascending colon and in the cecum. - Mild inflammation was found in the ileum secondary to ileitis. Biopsied. CT 03/17/2023 Large amount of fecal material is seen in the colon. 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 consultant wakes her up - pain is central abdomen and radiates out - reports drinking more water helps her bowels move and the improvement in bowels has helped with pain - she reports having a good BM daily and sometimes smaller stools throughout the day - denies any straining with a BM or difficulty evacuating - she reports an improvement in pain with a BM - she is taking Magnesium Oxide - not drinking 32 ounces of water daily ROS Const Constitutional: No fatigue, fever(s) or weight change ENT ENT: No difficulty swallowing Gastro GI: Positive for abdominal pain; No belching, bloating, change in bowel habits, change in stool character, coffee ground emesis, constipation, cramping, diarrhea, heartburn, difficulty swallowing, feeling full early, excessive flatus, incontinent of stools, Vomiting blood/hematemesis, Blood in stool, loose stools, Black,tarry stools, nausea/dyspepsia, pain with swallowing, vomiting or ot (more content not included)... Normal [facility] Colonoscopy Reporton 025 Colonoscopy Report [facility] Medical Records Department [address] [place] [address] Colonoscopy Report MR#: [id number] Acct: [id number] Name: PHYLLIS SANCHEZ Rep #: [id number] : 1950 73 From: Dhiraj King DO PCP: NANO BURLESON Status:[facility] Patient Name: Phyllis Sanchez Procedure Date: 06/01/2024 6:41 AM Date of : 1950 Age: 73 Procedure: Colonoscopy Indications: Generalized abdominal pain Providers: Dhiraj King DO Referring MD: Nano Burleson Medicines: Monitored Anesthesia Care Patient Profile: This is a 73 year old female. Refer to note in patient chart for documentation of history and physical. Last Colonoscopy: 10 years ago. Complications: No immediate complications. Procedure: Pre-Anesthesia Assessment: - Prior to the procedure, a History and Physical was performed, and patient medications and allergies were reviewed. The patient is competent. The risks and benefits of the procedure and the sedation options and risks were discussed with the patient. All questions were answered and informed consent was obtained. Patient identification and proposed procedure were verified by the physician in the pre-procedure area. Mental Status Examination: alert and oriented. Airway Examination: normal oropharyngeal airway and neck mobility. Respiratory Examination: clear to auscultation. CV Examination: normal. Prophylactic Antibiotics: The patient does not require prophylactic antibiotics. Prior Anticoagulants: The patient has taken no anticoagulant or antiplatelet agents except for NSAID medication. ASA Grade Assessment: II - A patient with mild systemic disease. After reviewing the risks and benefits, the patient was deemed in satisfactory condition to undergo the procedure. The anesthesia plan was to use monitored anesthesia care (MAC). Immediately prior to administration of medications, the patient was re-assessed for adequacy to receive sedatives. The heart rate, respiratory rate, oxygen saturations, blood pressure, adequacy of pulmonary ventilation, and response to care were monitored throughout the procedure. The physical status of the patient was re-assessed after the procedure. After I obtained informed consent, the scope was passed under direct vision. Throughout the procedure, the patient's blood pressure, pulse, and oxygen saturations were monitored continuously. The colonoscope was introduced through the anus and advanced to the cecum, identified by appendiceal orifice and ileocecal valve. The colonoscopy was performed without difficulty. The patient tolerated the procedure well. The quality of the bowel preparation was adequate. The terminal ileum, ileocecal valve, appendiceal orifice, and rectum were photographed. Scope In: 7:06:22 AM Scope Out: 7:20:21 AM Total Procedure Duration Time 0 hours 13 minutes 59 seconds Findings: The perianal and digital rectal examinations were normal. Retroflexion was not performed because of the patient's very small rectum. Multiple small-mouthed diverticula were found in the recto-sigmoid colon, sigmoid colon, hepatic flexure, ascending colon and cecum. Patchy mild inflammation characterized by congestion (edema) was found in the distal ileum and in the terminal ileum. Biopsies were taken with a cold forceps for histology. Verification of patient identification for the specimen was done. Estimated blood loss was minimal. Impression: - Diverticulosis in the recto-sigmoid colon, in the sigmoid colon, at the hepatic flexure, in the ascending colon and in the cecum. - Mild inflammation was found in the ileum secondary to ileitis. Biopsied. Recommendation: - Discharge patient to home. - Resume previous diet. - Continue present medications. - Await pathology results. - Repeat colonoscopy in 10 years for screening purposes. Procedure Code(s): --- Professional --- 04275, Colonoscopy, flexible; with biopsy, single or multiple CPT copyright 2021 [employer]. All rights reserved. The codes documented in this report are preliminary and upon surplus property disposal agent review may be revised to meet current compliance requirements. Dhiraj King DO 06/01/2024 7:25:52 AM This report has been signed electronically. Number of Addenda: 0 Note Initiated On: 06/01/2024 6:41 AM 06/01/24725 Date Dhiraj Vaughn Signature: Date (if indicated) CC: LITIGATION SUPPORT ANALYST-C CHRISTINA MARTIN; Dhiraj King DO Date Dictated: 06/01/2441 Date Transcribed: Customer Care Voice Consultant: JOHNY Signed [facility] MR/POSTOP.Misty 06-01-2024 MR/POSTOP.[facility] Medical Records Department [address] [place] [address] Anesthesia Postop Eval I 06/01/24731 MR#: [id number] Acct: [id number] Name: PHYLLIS SANCHEZ Rep #: [id number] : 1950 73 From: David Jeffries PCP: CHRISTINA MARTIN LITIGATION SUPPORT ANALYST-C Status:REG [facility] Y Race: C Location: [place] [address] Anesthesia: Postop Eval I Current Vital Signs Temperature: 97.1 F Pulse Rate: 77 Blood Pressure: 113/77 Respiratory Rate: 16 Pulse Ox: 100 Oxygen Delivery Method: Room Air Assessment Airway patent: Yes Spontaneous unlabored respirations: Yes Mental status: Awake and Calm nausea: No Vomiting: No Anesthesia Complication: No Fluid Hydration Crystalloid volume administer (ml): 40 Total IV fluid infused: 40 Progress Note Anesthesia document: Postop Eval 1 completed: Yes 06/01/2433 Date David Jeffries Cosigner Signature: Date CC: Signed Normal [facility] MR/[id number] 06-01-2024 MR/POSTOPAN2 [facility] Medical Records Department [address] [place] [address] Anesthesia Postop Eval II 06/01/2445 MR#: [id number] Acct: [id number] Name: PHYLLIS SANCHEZ Rep #: [id number] : 1950 73 From: Daljit Prater MD PCP: CHRISTINA MARTIN LITIGATION SUPPORT ANALYST-C Status:[facility] Y Race: C Location: [place] Anesthesia Postop Eval I Sum Postop Eval Completion status Anesthesia document: Postop Eval 1 completed: Yes Anesthesia Postop Eval I Summary Anesthesia Postop Eval I Summary: Anesthesia Postop Eval I: Assessment Summary Airway patent Yes 06/01/24 07:33 [email or web address] Spontaneous unlabored Yes 06/01/24 07:33 [email or web address] respirations Mental status Awake,Calm 06/01/24 07:33 [email or web address] nausea No 06/01/24 07:33 [email or web address] Vomiting No 06/01/24 07:33 [email or web address] Anesthesia Postop Eval I: Fluid Summary Crystalloid volume administer 40 06/01/24 07:33 [email or web address] (ml) Colloids volume administered ( ml) Blood Product volume administered (ml) Total IV fluid infused 40 06/01/24 07:33 [email or web address] Anesthesia Postop Eval I: Summary Notes Anesthesia Complication No 06/01/24 07:33 [email or web address] Anesthesia Complication Comment: Post-operative progress note Anesthesia: Postop Eval II Evaluation Mental status: Awake Pain Level: 0 nausea: No Vomiting: No 06/01/24844 Date Daljit Castilloignbrenda Signature: Date CC: Signed Normal [facility] Surgery Specimen Level Frida 06-01-2024 Surgery Specimen Level IV -------- Patient Age/Sex Location Account Attending Physician -------- PHYLLIS SANCHEZ 73/F EN [id number] Dhiraj King DO -------- Specimen: [id number] Received: 06/01/24 Status: LOU Huynh Num: [id number] Spec Type: COLON BX Subm Dr: Dhiraj King, DO HEADER OPERATION: Colonoscopy biopsy PRE-OP DIAGNOSIS: Abdominal pain, change in bowel habits, constipation TISSUE SUBMITTED: Terminal ileum biopsy -------- MICROSCOPIC DIAGNOSIS Terminal ileum, biopsy: Fragments of small intestinal mucosa, no pathologic diagnosis. . 06/02/2024 MICROSCOPIC DESCRIPTION Slides are reviewed. GROSS DESCRIPTION Received in fixative is one container labeled with the patient's name and designated Terminal ileum biopsy. The specimen consists of multiple irregular fragments of light rodriguez soft tissue that in aggregate measure 1.4 x 0.4 x 0.2 cm. The specimen is totally submitted in one cassette. . 06/01/2024 TC:4 CPT:08763 -------- Patient Age/Sex Location Account Attending Physician -------- PHYLLIS SANCHEZ 73/F EN [id number] Dhiraj King DO -------- Signed (signature on file) Dr. Travis Velasquez MD 06/02/24 1149 -------- Normal [facility] Comment on above: Performed By: #### P SUIV #### [facility] [address] [facility] [address] 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 When Was Last Pacemaker Check QUESTION #4 FULL TEXT: You/Your Family Experience fever (hyperthermia) with Anesthesia Last Oral Intake Last Oral intake: Last Oral Intake NPO since Meds taken in AM with sips of water? 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 and crown laminating operator: PONV - hat brim and crown laminating operator Female Yes 05/30/24 08:28 HX of Motion Sickness Yes 05/30/24 08:28 HX of N/V After Surgery Yes 05/30/24 08:28 Non-Smoker Yes 05/30/24 08:28 Duration of Surgery greater No 05/30/24 08:28 than 60 minutes Number of Risk Factors 4 05/30/24 08:28 PONV Score Severe Risk 05/30/24 08:28 Height Weight Height Weight: Anesthesia: Height Weight Height 5 ft 08/06/23 14:32 Respiratory Assessment Respiratory Assessment - hat brim and crown laminating operator: Respiratory Tract Infection Hx - hat brim and crown laminating operator Hx Respiratory Tract Infection No 05/30/24 08:28 STOP Sleep Apnea STOP Sleep Apnea - hat brim and crown laminating operator: STOP Sleep Apnea - hat brim and crown laminating operator Hx Hypertension No 05/30/24 08:28 Hx Sleep Apnea No 05/30/24 08:28 CPAP BIPAP Do you snore loudly (louder No 05/30/24 08:28 than talking or can be heard Do you often feel tired/ No 05/30/24 08:28 fatigued/ sleepy during daytime? Has anyone observed you stop No 05/30/24 08:28 breathing during sleep? STOP Results Negative 05/30/24 08:28 QUESTION #5 FULL TEXT : Do you snore loudly (louder than talking or can be heard through closed doors)? 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 Tobacco Use Smoking Status Former smoker 05/30/24 08:28 Hx Tobacco Use Yes 05/30/24 08:28 Years Smoking Packs Smoked per Day Smoking Cessation Date was No - quit smoking greater 05/30/24 08:28 within the last 15 years than 15 years ago Hx Smoking Cessation Date 05/18/79 05/30/24 08:28 Hx Smoking Cessation Counseling Hematologic Medial History Hematologic Hx - hat brim and crown laminating operator: Hematologic Medical Hx - car customizer Hx of Blood Transfusion No 05/30/24 08:28 Hx of Transfusion in last 3 No 05/30/24 08:28 Months Date of Last Transfusion (if within last 3 months) Ever experience any problems No 05/30/24 08:28 with transfusion(s)? Specify any problems Hx of Preganancy in last 3 N/A 05/30/24 08:28 Months Nurse Filling Out Transfusion NBUCHER 05/30/24 08:28 Questions: Date: 05/30/24 05/30/24 08:28 Time: 08:31 05/30/24 08:28 Patient unable to answer at this time (ie. confused, unrespo /Reproductio n History /Reproductiv e History - hat brim and crown laminating operator: /Reproductiv e Hx- hat brim and crown laminating operator Hx Now No 05/30/24 08:28 Gestational Age (in weeks): EDC: Hx Hx Para Hx Section SAB No 05/30/24 08:28 [facility] Medical History (Updated 05/30/24 @ 08:37 by Adore Watson) Post-menopausal Arthritis PONV (postoperative nausea and vomiting) Leg cramps Wears glasses Alcohol use Seizures Former smoker Synovial cyst of popliteal space [Ho], right knee Tear of medial meniscus of right knee Osteoarthritis of right knee Right knee pain Home Medications ???Medication ???Instructions ???Recorded ???Last Taken ???Type calcium carbonate (Calcium 500) 500 mg PO DAILY 12/19/21 04/22/22 History mecobalamin (vitamin B12) 5,000 5,000 mcg PO DAILY 12/19/21 04/22/22 History mcg disintegrating tablet vitamins A,C,M-mxhy-zpfatz 4,296 1 cap PO BID 12/19/21 04/22/22 History mcg-226 mg-90 mg capsule (PreserVision AREDS) alendronate 10 mg tablet 10 mg PO .once a week 03/31/24 Unknown History dicyclomine 10 mg capsule 10 mg PO TID PRN abdominal pain 04/25/24 Unknown Rx #60 caps m (more content not included)... Normal [facility] Surgery Specimen Level Frida 05-03-2024 Surgery Specimen Level IV -------- Patient Age/Sex Location Account Attending Physician -------- PHYLLIS SANCHEZ 73/F LABSPEC [id number] Bjorn Alvarado -------- Specimen: [id number] Received: 05/05/24 Status: LOU Huynh Num: [id number] Spec Type: ETH TISS Subm Dr: Dr. Buddy Shelton MD HEADER OPERATION: Open septo rhinoplasty, maxillary antrostomy, right and left PRE-OP DIAGNOSIS: External nasal valve collapse, dynamic, hypertrophy of nasal turbinates, nasal congestion TISSUE SUBMITTED: Left nasal sinus contents -------- MICROSCOPIC DIAGNOSIS Left nasal sinus contents: Fragments of respiratory mucosa with chronic inflammation and bone. 05/09/2024 MICROSCOPIC DESCRIPTION Slides are reviewed. GROSS DESCRIPTION Received in fixative is one container labeled with the patient's name and designated Left nasal sinus contents. The specimen consists of multiple irregular fragments of soft tissue and cartilage and bone that in aggregate measure 2.0 x 1.5 x 0.3 cm. The specimen is totally submitted in one cassette after decalcification. 05/05/2024 TC:3 CPT:51368, 83180 -------- Patient Age/Sex Location Account Attending Physician -------- PHYLLIS SANCHEZ 73/F LABSPEC [id number] Bjorn Alvarado -------- Signed (signature on file) Dr. Travis Velasquez MD 05/09/24 1232 -------- Normal [facility] Comment on above: Performed By: #### P DOUG ####[facility] [address] [place], [address] Todd 03-31-2024 MARTA Office Visit (INTMWS ) PHYLLIS SANCHEZ ([id number]) 1950 F Date Time Provider Department 03/31/24 7:20 AM CHRISTINA MARTIN During your visit today, we recorded the following information about you: Respiration Weight 16/minute 47.2 kg Christina Martin APRN.PLY BANDER 03/31/2024 7:51 AM Signed CC: Patient presents with: Recheck: 6 month follow up HPI Phyllis Sanchez is a 73 year old female who presents today for routine follow up and has been experiencing higher blood pressures. Elevated Blood Pressure: Ms. Sanchez indicates that she is feeling well and denies any symptoms referable to elevated blood pressure. Specifically denies headache, chest pain, palpitations, dyspnea, and peripheral edema. Patient denies any side effects of her medication(s) and is compliant with their regimen. She does not check BP's generally. Phyllis denies regular aerobic exercise but stays active throughout the day cleaning and working around house. She watches her diet for sodium, low fat and low cholesterol most of the time. Last 3 Encounter BP Readings: Date: BP: 03/31/2024 140/88 02/22/2024 132/72 02/05/2024 130/82 12/02/2023 134/84 REVIEW OF SYSTEMS See HPI PAST MEDICAL HISTORY Diagnosis Date Chronic left-sided low back pain without sciatica 05/22/2018 Closed fracture dislocation of multiple fingers 1986 right hand caught in conveyor belt Detached retina, left 2005 H/O ganglion cyst Seizure disorder (HCC) 1967 on medication in her teens. Off medication at age 19. PAST SURGICAL HISTORY Procedure Laterality Date COLONOSCOPY FLX DX W/COLLJ SPEC WHEN PFRMD 07/02/2018 Colonoscopy 10 yr interval ENDOSC BALLOON SINUPLASTY PAST SURGICAL HISTORY OF Right 04/28/2022 partially torn maniscus repair PAST SURGICAL HISTORY OF 10/27/2023 Total vaginal hysterectomy Possible bilateral salpingo-oophorectomy Uterosacral ligament suspension Anterior colporrhaphy Posterior colporrhaphy Perineorrhaphy Cystoscopy S MENISCAL REPAIR OUT/IN Left ALLERGIES Patient has no known allergies. MEDICATIONS alendronate (FOSAMAX) 35 mg tablet Take 1 tablet by mouth one time a week. estradiol (ESTRACE) 0.01 % (0.1 mg/gram) vaginal cream apply one gram or soybean sized amount over the vaginal opening every night for 2 weeks then 2 evenings per week fluticasone (FLONASE) 50 mcg/actuation nasal spray Use 2 Sprays in each nostril once daily. Rinse mouth after use. vit C/E/cuperic/zinc/lute in (PRESERVISION LUTEIN ORAL) Take by mouth twice daily. cyanocobalamin (VITAMIN B-12) 1,000 mcg tab Take 1 tablet by mouth once daily. calcium carbonate (CALCIUM 600) 600 mg calcium (1,500 mg) tab Take 0.5 tablets by mouth once daily. FAMILY HISTORY Problem Relation Age of Onset Coronary Artery Disease Mother Ischemic Heart Disease Mother Stroke Mother other (Other) Father CO poisoning at factory Heart Sister heart murmur Cancer Brother Throat cancer Autism Brother other (lung) Brother pneumonia Diabetes Maternal Grandmother No Known Problems Daughter No Known Problems Son No Known Problems Son Breast Cancer Maternal Aunt Social History Tobacco Use Smoking status: Former Current packs/day: 0.00 Average packs/day: 1 pack/day for 11.0 years (11.0 ttl pk-yrs) Types: Cigarettes Start date: 05/18/1973 Quit date: 05/18/1984 Years since quittin.8 Smokeless tobacco: Never Vaping Use Vaping status: Never Used Substance Use Topics Alcohol use: Yes Comment: 1-2 glasses a few times a week Drug use: No PHYSICAL EXAM Resp 16 Wt 47.2 kg (104 lb) BMI 19.65 kg/m? General Appearance: well appearing, in no acute distress, alert Eyes: conjunctiva pink and moist, no icterus, sclera white, non-injected Lungs: Lungs clear to auscultation. No wheezing, rhonchi, rales. Heart: RRR without murmur, gallop, or rubs. No ectopy Health maintenance reviewed with patient: DTaP,Tdap,Td Vaccine(1 - Tdap) due on 09/27/2024 Depression Screening due on 09/27/2024 Anxiety Screening due on 09/27/2024 Mammogram Screening due on 03/08/2025 Bone Density Screening due on 09/30/2025 Diabetes Screening due on 09/27/2026 Colorectal Cancer Screening due on 07/02/2028 Lipid Screening due on 09/27/2028 Influenza Vaccine Completed Advance Directive Discussion Completed RSV Vaccine Completed Shingrix Vaccine Completed Covid-19 Vaccine Completed Pneumococcal Vaccine: 65+ Completed Hepatitis C Screening Discontinued DATA REVIEWED: Most recent labs from [facility] ASSESSMENT/PLAN: 1. Elevated blood pressure reading - ICD9: 796.2, ICD10: R03.0 (primary diagnosis) - Encouraged dietary sodium restriction/DASH diet - Recommended regular aerobic exercise. - Recommend home blood pressure monitoring, to bring results in on next visit - Recheck in 2 week, sooner if needed. - Goal of BP <130/80 2. Genitourinary syndrom (more content not included)... Normal [facility] Gastroenterology Visit Repor ton 03-31-2024 Gastroenterology Visit Report [facility] Gastroenterology [address] [place] [address] OFFICE VISIT Date of Service: 03/31/24 MR#: [id number] Acct: [id number] Name: PHYLLIS SANCHEZ Rep #: [id number] : 1950 Provider: NANO santa Age/Sex: 73/F Location: [facility] Status: Signed Intake Vital Signs 08/06/23 14:32 03/31/24 14:32 Height 5 ft Weight: 109 lb 104 lb BMI 21.2 BP 156/92 H Respiration 16 Pulse 74 Temp 97.9 F Pulse Oximetry (%) 97 Intake Visit Reasons: Abdominal pain Chief Complaint: bowel changes and abdominal discomfort Registered Dental Hygienist Required: No Is patient in pain?: Yes Allergies No Known Allergies Allergy (Verified 03/31/24 14:28) Medications ???Medication ???Instructions ???Recorded ???Confirmed ???Type calcium carbonate (Calcium 500) 500 mg PO DAILY 12/19/21 03/31/24 History mecobalamin (vitamin B12) 5,000 5,000 mcg PO DAILY 12/19/21 03/31/24 History mcg disintegrating tablet vitamins A,C,P-usvu-wkfweo 4,296 1 cap PO BID 12/19/21 03/31/24 History mcg-226 mg-90 mg capsule (PreserVision AREDS) alendronate 10 mg tablet 10 mg PO .once a week 03/31/24 03/31/24 History Patient : No Have you fallen in the past year?: No Nurse's Note: Pain in abd is 8/10. Wakes her up every morning. Once she's up and moving around it goes away. Bowels have changed in the last month or so. The stool is smaller and she goes more often. PFSH Medical History Alcohol use Former smoker Osteoarthritis of right knee Right knee pain Seizures Synovial cyst of popliteal space [Ho], right knee Tear of medial meniscus of right knee Wears glasses Surgical History History of hand surgery Family History Mother Hypertension CVA (cerebral vascular accident) Social History household members: spouse Smoking Status: Former smoker alcohol intake: current HPI HPI Chief Complaint: bowel changes and abdominal discomfort Details: 73y/o female presents for consultation of abdominal pain. CBC and BMP were unremarkable 03/21/2024. CT A P 03/17/2023 Large amount of fecal material is seen in the colon. COLONOSCOPY last performed 6 years ago per patient - she reports this was negative - denies any family h/o colon CA - she complains of 8/10 abdominal pain, intermittent x1 year, she describes this as an aching pain, reports getting up and moving around helps alleviate the pain - does not eat until the pain resolves - wakes her in the morning and lingers for a few hours - she is having a BM daily - bit now having smaller more frequent stools instead of 1 formed stool - denies any dietary or medication changes - denies any weight loss - she had bladder surgery October 2023 for bladder prolapse, also had a partial hysterctomy ay this time - reports taking Mag Citrate prior to surgery took 5h to work - denies any HB or indigestion - denies any N/V - denies any bleeding - Miralax for 10 days caused fecal leakage and did not help with frequency of stools or quantity B - bread and coffee L - salad with a protein, cottage cheese or fruit D - starch, protein and vegetable sometimes - she reports drinking plenty of water ROS Const Constitutional: No fatigue, fever(s) or weight change ENT ENT: No difficulty swallowing Gastro GI: Positive for abdominal pain, bloating and change in bowel habits; No belching, change in stool character, coffee ground emesis, constipation, cramping, diarrhea, heartburn, difficulty swallowing, feeling full early, excessive flatus, incontinent of stools, Vomiting blood/hematemesis, Blood in stool, loose stools, Black,tarry stools, nausea/dyspepsia, pain with swallowing, vomiting or other Musc Musculoskeletal: Positive for muscle cramps, stiffness and Arthritis; No joint pain Skin Skin: No yellowing of the eye or itchy eyes Psych Psychiatric: No anxiety and No depression Endo Endocrine: No fatigue or weight change Aller/Imm Allergy/Immunologic: No itchy eyes Manuel/Lymp Hematologic/Lymphatic : No easy bleeding or easy bruising Exam Const General: healthy appearing, no acute distress and well developed Nutritional Appearance: average body habitus and well nourished Orientation: alert and oriented x3 HENMT Head: normocephalic Ears: hearing grossly normal bilaterally Mouth: moist mucous membranes Teeth and gingiva: dentition normal Eyes Conjunctivae: conjunctivae normal Sclera: sclerae normal Neck Neck: normal visual inspection, full ROM and trachea midline Resp Effort Inspection: normal respiratory effort, able to speak in complete sente (more content not included)... Normal [facility] 03-23-2024 [facility] Telephone (GYARIANNAWP) PHYLLIS SANCHEZ ([id number]) 1950 F Date Time Provider Department 03/23/24 MICHAEL MANZANARES During your visit today, we recorded the following information about you: Elizabeth Tomas RN 03/23/2024 3:05 PM Signed Hi! Can you please call this patient to see how she is doing 1 month status post bulkamid injections? If she is doing well, she should follow up with me in October 2024 for 1y postop check. If she is not happy with results, please schedule her for an appointment. Thanks! Michael Manzanares MD Pt s/p Bulkamid on 02/[address] Manzanares Called pt and verified name/. She denies any symptoms of JEMIMA as well as urinary retention. She wanted to make a follow up appointment for October of 2024. She accepted 10/[address] Manzanares. Appt held. Sending to to add pt on. Elizabeth Tomas RN March 23, 2024 3:04 PM Allergies As of Date: 03/23/2024 (No Known Allergies) Date Reviewed: 02/22/2024 Reviewed by: Jaye Randolph RN - Fully Assessed Reason for Visit: Care Coordination [3491] Cmt: Bulkamid Follow-Up Prescriptions as of 03/23/2024 - alendronate (FOSAMAX) 35 mg tablet Take 1 tablet by mouth one time a week. - estradiol (ESTRACE) 0.01 % (0.1 mg/gram) vaginal cream apply one gram or soybean sized amount over the vaginal opening every night for 2 weeks then 2 evenings per week - fluticasone (FLONASE) 50 mcg/actuation nasal spray Use 2 Sprays in each nostril once daily. Rinse mouth after use. - vit C/E/cuperic/zinc/lute in (PRESERVISION LUTEIN ORAL) Take by mouth twice daily. - cyanocobalamin (VITAMIN B-12) 1,000 mcg tab Take 1 tablet by mouth once daily. - calcium carbonate (CALCIUM 600) 600 mg calcium (1,500 mg) tab Take 0.5 tablets by mouth once daily. Problem List As Of Date 03/23/2024 Noted Resolved Chronic left-sided low back pain without sciati*05/22/2018 10/16/2023 DDD (degenerative disc disease), lumbar [M51.36*04/08/2021 Vitamin B12 deficiency [E53.8] 06/19/2021 Solitary pulmonary nodule [R91.1] 10/16/2023 Osteoporosis [M81.0] 10/16/2023 Hx of seizure disorder [Z86.69] 10/16/2023 Uterovaginal prolapse, incomplete [N81.2] 10/26/2023 Cystocele, midline [N81.11] 10/26/2023 Rectocele [N81.6] 10/26/2023 Encounter Status:Closed by ELIZABETH TOMAS on 03/23/24 Normal [facility] 12 Lead EKGon 03-21-2024 12 Lead EKG [facility] Cardiovascular Services [address] [place] [address] 12 Lead EKG 03/21/24 0727 MR#: [id number] Acct: [id number] Name: PHYLLIS SANCHEZ Rep #: [id number] : 1950 73 From: Juan Carlos Rader MD Attending Dr: Dr. Buddy Shelton MD Statu s: REG CLI Ordering Dr: Buddy Shelton MD Date: 4 Location: [facility] Sex: F C Admitted: Test Reason : PRE OP Blood Pressure : */* mmHG Vent. Rate : 61 BPM Atrial Rate : 61 BPM P-R Int : 150 ms QRS Dur : 82 ms QT Int : 408 ms P-R-T Axes : 85 86 83 degrees QTcB Int : 410 ms Normal sinus rhythm possible Biatrial enlargement borderline Confirmed by Juan Carlos Rader ([id number]), food editor LAY ROBERSON ([id number]) on 03/22/2024 9:13:57 AM Referred By: Buddy Shelton Confirmed By: Juan Carlos Rader 03/22/24 0914 Date Juan Carlos Rader MD CC: NANO MARTIN; Dr. Buddy Shelton MD Signed Normal [facility] Basic Metabolic Profile (BMP )on 03-21-2024 BUN/CRE 19.6 RATIO Normal 10-20 [facility] Comment on above: Performed By: #### L 500.2500, L100.0500 ####[facility] [address] [place], [address] CA,Total 9.1 mg/dL Normal 8.5-10.1 [facility] Comment on above: Performed By: #### L 500.2500, L100.0500 ####[facility] [address] [place], [address] Chloride [Moles/Vol] 107 mmol/L Normal 98-107 [facility] Comment on above: Performed By: #### L 500.2500, L100.0500 ####[facility] [address] [place], [address] CO2 [Moles/Vol] 26.0 mmol/L Normal 21.0-32.0 [facility] Comment on above: Performed By: #### L 500.2500, L100.0500 ####[facility] [address] [place], [address] Creatinine [Mass/Vol] 0.77 mg/dL Normal 0.55-1.02 [facility] Comment on above: Result Comment: The validity of the calculated GFR GFRAA in patients over 70 years has not been determined. Clinical correlation is essential. Performed By: #### L 500.2500, L100.0500 ####[facility] [address] [place], [address] EST GFR - AA 96 mL/min Normal >60 [facility] Comment on above: Result Comment: Afri can [place] GFR Calc Performed By: #### L 500.2500, L100.0500 ####[facility] [address] [place], [address] GAP 6 Normal 5-15 [facility] Comment on above: Performed By: #### L 500.2500, L100.0500 ####[facility] [address] [place], [address] GFR/1.73 sq M.predicted among non-blacks MDRD (S/P/Bld) [Vol rate/Area] 79 mL/min/{1.73_m2} Normal >60 [facility] Comment on above: Result Comment: Non- GFR Calc Performed By: #### L 500.2500, L100.0500 ####[facility] [address] [place], [address] Glucose [Mass/Vol] 94 mg/dL Normal 74-106 [facility] Comment on above: Performed By: #### L 500.2500, L100.0500 ####[facility] [address] [place], [address] Potassium [Moles/Vol] 4.0 mmol/L Normal 3.5-5.1 [facility] Comment on above: Performed By: #### L 500.2500, L100.0500 ####[facility] [address] [place], [address] Sodium [Moles/Vol] 139 mmol/L Normal 136-145 [facility] Comment on above: Performed By: #### L 500.2500, L100.0500 ####[facility] [address] [place], [address] Urea nitrogen [Mass/Vol] 15 mg/dL Normal 7-18 [facility] Comment on above: Performed By: #### L 500.2500, L100.0500 ####[facility] [address] [place], [address] CBC-Complete Blood Cnt No Di ffon 03-21-2024 Erythrocyte distribution width (RBC) [Ratio] 13.5 % Normal 11.6-14.6 [facility] Comment on above: Performed By: #### L 500.2500, L100.0500 ####[facility] [address] [place], [address] Hematocrit (Bld) [Volume fraction] 43.9 % Normal 37-47 [facility] Comment on above: Performed By: #### L 500.2500, L100.0500 ####[facility] [address] [place], [address] Hemoglobin (Bld) [Mass/Vol] 14.5 g/dL Normal 12.0-15.0 [facility] Comment on above: Performed By: #### L 500.2500, L100.0500 ####[facility] [address] [place], [address] MCH (RBC) [Entitic mass] 30.3 pg Normal 27.0-32.0 [facility] Comment on above: Performed By: #### L 500.2500, L100.0500 ####[facility] [address] [place], [address] MCHC (RBC) [Mass/Vol] 33.0 g/dL Normal 32-36 [facility] Comment on above: Performed By: #### L 500.2500, L100.0500 ####[facility] [address] [place], [address] MCV (RBC) [Entitic vol] 91.6 fL Normal 81-99 [facility] Comment on above: Performed By: #### L 500.2500, L100.0500 ####[facility] [address] [place], [address] Platelet mean volume (Bld) [Entitic vol] 10.0 fL Normal 6.2-12.0 [facility] Comment on above: Performed By: #### L 500.2500, L100.0500 ####[facility] [address] [place], [address] Platelets (Bld) [#/Vol] 225 10*3/uL Normal 150-450 [facility] Comment on above: Performed By: #### L 500.2500, L100.0500 ####[facility] [address] [place], [address] RBC (Bld) [#/Vol] 4.79 10*6/uL Normal 4.2-5.4 [facility] Comment on above: Performed By: #### L 500.2500, L100.0500 ####[facility] [address] [place], [address] RDW SD 46.3 fl High 35.1-43.9 [facility] Comment on above: Performed By: #### L 500.2500, L100.0500 ####[facility] [address] [place], [address] WBC (Bld) [#/Vol] 4.4 10*3/uL Normal 4.4-11.0 [facility] Comment on above: Performed By: #### L 500.2500, L100.0500 ####[facility] [address] [place], [address] DBT Breast - bilateral jasmin garzaemelyn 03-08-2024 IMPRESSION: There is no mammographic evidence of malignancy in either breast. A routine follow-up mammogram in 1 year is recommended. BI-RADS Category 1: Negative RISK: Based on the Tyrer-Cuzick (TC) risk assessment model, this patient has a 3.4% lifetime risk of developing breast cancer, meaning they are at average risk for developing breast cancer. However, this is only an estimate based on available history provided on the patient's questionnaire. We encourage all patients to talk with their providers about these results, further recommendations for managing breast health, and appropriate supplemental screening options if the patient has dense breast tissue. Interpreting Radiologist: Hipolito Black M.D. Electronically signed on: 03/08/2024 Customer Care Voice Consultant: MARIAN Transcribe Date/Time: Mar 08 2024 7:35A Dictated by: HIPOLITO BLACK MD This examination was interpreted and the report reviewed and electronically signed by: HIPOLITO BLACK MD on Mar 08 2024 9:30AM [facility] DIVISION OF RADIOLOGY * * *Final Report* * * DATE OF EXAM: Mar 08 2024 8:11AM [facility] 0582 - TAYLOR SCREENING W AQUILES / PROCEDURE REASON: Encounter for screening mammogram for breast cancer * * * * Physician Interpretation * * * * RESULT: [facility] [address] [place] [address] HISTORY: Patient is 73 years old and is seen for screening and is asymptomatic in both breasts. Patient states no personal history of breast cancer. Patient states no personal history of other cancers. COMPARISON STUDIES: The present examination has been compared to prior imaging studies dated 12/19/2019 (mammogram), 12/20/2020 (mammogram), 01/16/2022 (mammogram) and 03/06/2023 (mammogram). MAMMOGRAM TECHNIQUE: The study was acquired using full field digital technology and interpreted from soft copy. Digital Breast Tomosynthesis (DBT) images were obtained and used to assist in the interpretation of this examination. Computer-aided detection was utilized by the radiologist in the interpretation of this examination. MAMMOGRAM FINDINGS: The breasts are extremely dense, which lowers the sensitivity of mammography. No suspicious masses, calcifications or other abnormalities are seen in either breast. There are no significant changes from the prior study. DIVISION OF RADIOLOGY Provider, [facility] - 03/08/2024 * * *Final Report* * * DATE OF EXAM: Mar 08 2024 8:11AM [facility] 0582 - TAYLOR SCREENING W AQUILES / PROCEDURE REASON: Encounter for screening mammogram for breast cancer * * * * Physician Interpretation * * * * RESULT: [facility] [address] [place] [id number] HISTORY: Patient is 73 years old and is seen for screening and is asymptomatic in both breasts. Patient states no personal history of breast cancer. Patient states no personal history of other cancers. COMPARISON STUDIES: The present examination has been compared to prior imaging studies dated 12/19/2019 (mammogram), 12/20/2020 (mammogram), 01/16/2022 (mammogram) and 03/06/2023 (mammogram). MAMMOGRAM TECHNIQUE: The study was acquired using full field digital technology and interpreted from soft copy. Digital Breast Tomosynthesis (DBT) images were obtained and used to assist in the interpretation of this examination. Computer-aided detection was utilized by the radiologist in the interpretation of this examination. MAMMOGRAM FINDINGS: The breasts are extremely dense, which lowers the sensitivity of mammography. No suspicious masses, calcifications or other abnormalities are seen in either breast. There are no significant changes from the prior study. IMPRESSION IMPRESSION: There is no mammographic evidence of malignancy in either breast. A routine follow-up mammogram in 1 year is recommended. BI-RADS Category 1: Negative RISK: Based on the Tyrer-Cuzick (TC) risk assessment model, this patient has a 3.4% lifetime risk of developing breast cancer, meaning they are at average risk for developing breast cancer. However, this is only an estimate based on available history provided on the patient's questionnaire. We encourage all patients to talk with their providers about these results, further recommendations for managing breast health, and appropriate supplemental screening options if the patient has dense breast tissue. Interpreting Radiologist: Hipolito Black M.D. Electronically signed on: 03/08/2024 Customer Care Voice Consultant: MARIAN Transcribe Date/Time: Mar 08 2024 7:35A Dictated by: HIPOLITO BLACK MD This examination was interpreted and the report reviewed and electronically signed by: HIPOLITO BLACK MD on Mar 08 2024 9:30AM EST [facility] Radiology Study observation (narrative) [facility] DBT Breast - bilateral scree ningOrdered By: [facility] Provider on 03-08-2024 [facility] TAYLOR SCREENING W TOMOon 03-08 TAYLOR SCREENING W AQUILES * * *Final Report* * * DATE OF EXAM: Mar 08 2024 8:11AM [facility] 0582 - TAYLOR SCREENING W AQUILES / PROCEDURE REASON: Encounter for screening mammogram for breast cancer * * * * Physician Interpretation * * * * RESULT: [place] [address] [place] [address] HISTORY: Patient is 73 years old and is seen for screening and is asymptomatic in both breasts. Patient states no personal history of breast cancer. Patient states no personal history of other cancers. COMPARISON STUDIES: The present examination has been compared to prior imaging studies dated 12/19/2019 (mammogram), 12/20/2020 (mammogram), 01/16/2022 (mammogram) and 03/06/2023 (mammogram). MAMMOGRAM TECHNIQUE: The study was acquired using full field digital technology and interpreted from soft copy. Digital Breast Tomosynthesis (DBT) images were obtained and used to assist in the interpretation of this examination. Computer-aided detection was utilized by the radiologist in the interpretation of this examination. MAMMOGRAM FINDINGS: The breasts are extremely dense, which lowers the sensitivity of mammography. No suspicious masses, calcifications or other abnormalities are seen in either breast. There are no significant changes from the prior study. IMPRESSION: There is no mammographic evidence of malignancy in either breast. A routine follow-up mammogram in 1 year is recommended. BI-RADS Category 1: Negative RISK: Based on the Tyrer-Cuzick (TC) risk assessment model, this patient has a 3.4% lifetime risk of developing breast cancer, meaning they are at average risk for developing breast cancer. However, this is only an estimate based on available history provided on the patient's questionnaire. We encourage all patients to talk with their providers about these results, further recommendations for managing breast health, and appropriate supplemental screening options if the patient has dense breast tissue. Interpreting Radiologist: Hipolito Black M.D. Electronically signed on: 03/08/2024 Customer Care Voice Consultant: MARIAN Transcribe Date/Time: Mar 08 2024 7:35A Dictated by: HIPOLITO BLACK MD This examination was interpreted and the report reviewed and electronically signed by: HIPOLITO BLACK MD on Mar 08 2024 9:30AM EST [id number] Normal [facility] CNOVon 02-22-2024 CNOV Office Visit (GYURWP ) PHLYLIS SANCHEZ ([id number]) 1950 F Date Time Provider Department 02/22/24 1:30 PM MICHAEL MANZANARES During your visit today, we recorded the following information about you: Blood pressure 132/72 Michael Manzanares MD 02/22/2024 2:45 PM Addendum Phyllis Sanchez presents today for a periurethral bulking injections with Bulkamid. Indication: JEMIMA, ISD UNIVERSAL PROTOCOL / SAFETY CHECKLIST Procedure to be Performed: periurethral bulking injections with Bulkamid Sign In: A Moment of CARE was completed. Personnel directly involved with the procedure wore the appropriate PPE (Personal Protective Equipment). Patient/Surrogate Stated/Verified: PATIENT VERIFIED(optional for EMERGENT procedures): Patient name, Date of , Relevant allergies, and The intended procedure Time Out Communication: Intended patient and procedure match the source documents. Consent documented and matches the intended procedure. Sign Out: SIGN OUT (optional for EMERGENT procedures): No specimen collected. All instruments, equipment, possible retained foreign bodies accounted for. Findings: Normal bladder mucosa. No evidence of inflammation, stones, neoplasia, bladder diverticulum, trabeculations, or other bladder abnormalities. The bladder trigone and ureteral orifices were seen and no abnormalities noted. Normal urethra without inflammation, diverticulum, or other abnormality. PROCEDURE: Indication: JEMIMA. The patient understands the RBA of Bulkamid, including but not limited to UTI, hematuria, urinary retention (dose dependent), treatment failure and transient weakness (rare). Brief description of procedure: After obtaining written informed consent, a time out was performed. The patient was placed in dorsal lithotomy position, then prepped and draped in the usual sterile fashion. 2% urethral lidocaine jelly was introduced into the urethra and allowed to take analgesic effect. Anesthesia: Intraurethral Lidocaine jelly 6 mL. Bulkamid injections: The bladder was drained with a straight catheter. The bulkamid scope was inserted and brief cystoscopy performed with findings above. The needle was advanced to the 2 cm marking and then drawn back to isela insertion point. The needle was retracted and then inserted parallel to urethral lumen and ~0.5 cc of bulkamid material was injected at 7 o'clock, 4 o'clock, 11 o'clock and 1 o'clock. At the end of the injections the urethral lumen was well coapted. A total of 0 cc of material was left (total injection 2.0 cc) Hemostasis was excellent. The patient tolerated the procedure well and was given an immediate dose of periprocedural antibiotics. There were no complications. Complications: none LOT: [id number] Exp: 2026-04-16 Procedure Summary: Patient tolerated procedure well. Medications: Prophylactic antibiotics Plan: Follow up 1 month for postop check via nurse phone call. If she's doing well plan for 1y postop in October 2024. If not can follow up for another visit. 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 #:[id number] Prescriptions as of 02/22/2024 - alendronate (FOSAMAX) 35 mg tablet Take 1 tablet by mouth one time a week. - estradiol (ESTRACE) 0.01 % (0.1 mg/gram) vaginal cream apply one gram or soybean sized amount over the vaginal opening every night for 2 weeks then 2 evenings per week - fluticasone (FLONASE) 50 mcg/actuation nasal spray Use 2 Sprays in each nostril once daily. Rinse mouth after use. - vit C/E/cuperic/zinc/lute in (PRESERVISION LUTEIN ORAL) Take by mouth twice daily. - cyanocobalamin (VITAMIN B-12) 1,000 mcg tab Take 1 tablet by mouth once daily. - calcium carbonate (CALCIUM 600) 600 mg calcium (1,500 mg) tab Take 0.5 tablets by mouth once daily. Problem List As Of Date 02/22/2024 Noted Resolved Chronic left-sided low back pain without sciati*05/22/2018 10/16/2023 DDD (degenerative disc disease), lumbar [M51.36*04/08/2021 Vitamin B12 deficiency [E53.8] 06/19/2021 Solitary pulmonary nodule [R91.1] 10/16/2023 Osteoporosis [M81.0] 10/16/2023 Hx of seizure disorder [Z86.69] 10/16/2023 Uterovaginal prolapse, incomplete [N81.2] 10/26/2023 Cystocele, midline [N81.11] 10/26/2023 Rectocele [N81.6] 10/26/2023 Encounter Status:Closed by MICHAEL MANZANARES on 02/22/24 Normal [facility] UA DIP, URINE (POC)on 2023 BILIRUBIN UA (POCT) Negative Negative [facility] CLARITY UA (POCT) Clear [facility] COLOR UA (POCT) Yellow [facility] GLUCOSE UA (POCT) Negative Negative mg/dL [facility] Hemoglobin Ql (U) Negative Negative [facility] KETONE UA (POCT) Negative Negative mg/dL [facility] LEUKOCYTES UA (POCT) Negative Negative [facility] NITRITE UA (POCT) Negative Negative [facility] PH UA (POCT) 8.0 4.5 - 8.0 [facility] Protein Ql (U) Negative Negative mg/dL [facility] SPECIFIC GRAVITY UA (POCT) 1.015 1.005 - 1.030 [facility] UROBILINOGEN UA (POCT) 0.2 Elo l E.U./dL [facility] Location:[facility], [address] [place] [address], [id number] [place] [address] POINT OF CARE [facility] CNOVon 02-05-2024 CNOV Office Visit (GYURWP ) PHYLLIS [id number]) 1950 F Date Time Provider Department 02/05/24 11:45 AM MICHAEL MANZANARES During your visit today, we recorded the following information about you: Blood pressure Weight Height 130/82 45.4 kg 1.549 m Michael Manzanares MD 02/05/2024 1:25 PM Signed Female Pelvic Medicine AND Reconstructive Surgery Post-Op Visit Phyllis Sanchez is a 73 year old year old female who presents for a 3 Month post-op check s/p Transvaginal hysterectomy, Right salpingectomy , Uterosacral ligament suspension of the vaginal vault/intraperitoneal colpopexy, Anterior colporrhaphy, Perineorrhaphy, and Cystoscopy on 10/27/23. Post-op complications: no Bleeding: no Pain: no If you had pain related to your prolapse before surgery, has your pain resolved? Yes Abnormal vaginal discharge: no Still having some JEMIMA since surgery. Has noticed that she empties her bladder prior to activities so that she will leak less but it really bothers her. PFDI-20 Do you: Usually experience pressure in the lower abdomen? Yes, somewhat bothersome (2) Usually experience heaviness or dullness in the pelvic area? No (0) Usually have a bulge or something falling out that you can see or feel in your vaginal area? No (0) Ever have to push on the vagina or around the rectum to have or complete a bowel movement? No (0) Usually experience a feeling of incomplete bladder emptying? No (0) Ever have to push up on a bulge in the vaginal area with your fingers to start or complete urination? No (0) Feel you need to strain too hard to have a bowel movement? Yes, not at all bothersome (1) Feel you have not completely emptied your bowels at the end of a bowel movement? Yes, not at all bothersome (1) Usually lose stool beyond your control if your stool is well formed? Yes, not at all bothersome (1) Usually lose stool beyond your control if your stool is loose? Yes, somewhat bothersome (2) Usually lose gas from the rectum beyond your control? Yes, somewhat bothersome (2) Usually have pain when you pass your stool? Yes, not at all bothersome (1) Experience a strong sense of urgency and have to harley to the bathroom to have a bowel movement? Yes, somewhat bothersome (2) Does part of your bowel ever pass through the rectum and bulge outside during or after a bowel movement? Yes, not at all bothersome (1) Usually experience frequent urination? Yes, moderately bothersome (3) Usually experience urine leakage associated with a feeling of urgency, that is, a strong sensation of needing to go to the bathroom? Yes, somewhat bothersome (2) Usually experience urine leakage related to coughing, sneezing or laughing? Yes, quite a bit bothersome (4) Usually experience small amounts of urine leakage (that is, drops)? Yes, not at all bothersome (1) Usually experience difficulty emptying your bladder? Yes, not at all bothersome (1) Usually experience pain or discomfort in the lower abdomen or genital region? Yes, not at all bothersome (1) The sensitive examination was discussed with the Patient or Patient's Authorized Health Club Attendant. As applicable, any other physician, advance practice provider, medical student, or other health professional student that will be observing or involved in the sensitive examination for educational or training purposes was discussed with the Patient or Authorized Health Club Attendant. The Patient or Authorized Health Club Attendant has agreed to proceed with the sensitive examination. (Sensitive examination includes inspection and/or palpation of the breasts, pelvis, prostate and anorectal regions) Body And Fender Mechanic Apprentice declined. OBJECTIVE: BP 130/82 Ht 154.9 cm (5' 1) Wt 45.4 kg (100 lb) BMI 18.89 kg/m? General Appearance: Appears stated age, comfortable, No acute distress Abdomen: Benign, soft, non-tender, no hernia, masses. Pelvic examination: Vulva/Perineum: Normal development, no lesions, perineal incision well healed Urethral Meatus:Normal location and size, no lesions, hypermobility Urethra: No masses, tenderness or scarring Bladder:No masses, no tenderness Vagina: Good vaginal support, suture material present, incision healing well,and atrophic Cervix: surgically absent Uterus: surgical absent Adnexa:No masses, tenderness or nodularity ASSESMENT: Phyllis Sanchez is a 73 year old year old female who is post-op; stable and doing well post-operative course uncomplicated PLAN: - No restrictions JEMIMA - discussed bulkamid in the office vs MUS in the OR. She desires office bulamid. Consented. Recommend she take 1 tablet oxycodone prior to appt to help minimize discomfort of the procedure. F/u for Bulkamid Michael Manzanares MD Allergies As of Date: 02/05/2024 (No Known Allergies) Date Reviewed: 02/05/2024 Reviewed by: Josefina Gray MA - Fully Assessed Re (more content not included)... Normal [facility] 02-05-2024 CNPN Telephone (GYURWP) PHYLLIS SANCHEZ ([id number]) 1950 F Date Time Provider Department 02/05/24 MICHAEL MANZANARES GYARIANNAWP During your visit today, we recorded the following information about you: Elizabeth Tomas, HUNTER 02/05/2024 3:43 PM Signed Bulkamid referral received -- 1st injection. Entered auth. Will monitor status. PPX antibiotics: Will need Blood thinners: None LV: 02/04 with Glenna ONOFRE - discussed bulkamid in the office vs MUS in the OR. She desires office bulamid. Consented. Recommend she take 1 tablet oxycodone prior to appt to help minimize discomfort of the procedure. F/u for Bulkamid Per Dr. Manzanares - she would like the patient scheduled for Bulkamid on 02/21. Sending to WP to reach out to pt and schedule. Elizabeth Tomas RN February 05, 2024 3:41 PM Eden Karimi RN 02/11/2024 1:17 PM Addendum Bulkamid approved thru 05/17/24 Sticky note updated Patient scheduled with Dr. Manzanares 02/21 at [facility] and in need of ppx abx. Sending to machine tech for orders. Eden Karimi RN February 11, 2024 1:13 PM === PHARMACY TEAM ==== NO AUTHORIZATION REQUIRED Per Epic Registration, patient has Medicare Part B as primary insurance. No authorization required. Coverage of services is always based on medical necessity. Dung Holman APRN.CNP 02/11/2024 4:44 PM Signed Bactrim rx sent. Dung Holman APRN.Dung Mora APRN.CNP 02/11/2024 4:44 PM Signed Addended by: DUNG HOLMAN on: 02/11/2024 04:44 PM Modules accepted: Orders Eden Karimi RN 02/12/2024 7:51 AM Signed Sent myc with ppx abx instructions. Will monitor read status. Eden Karimi RN February 12, 2024 7:51 AM Allergies As of Date: 02/05/2024 (No Known Allergies) Date Reviewed: 02/05/2024 Reviewed by: Josefina Gray MA - Fully Assessed Reason for Visit: Care Coordination [3491] Cmt: Bulkamid Primary Visit Diagnosis:Prophylacti c antibiotic [Z79.2] Order(s):sulfamethoxa zole-trimethoprim (BACTRIM DS) 800-160 mg per tabletTake 1 tablet by mouth two times a day for 3 days. Start day before procedure.Disp: 6 tabletRfl: 0 Prescriptions as of 02/12/2024 - sulfamethoxazole-trim ethoprim (BACTRIM DS) 800-160 mg per tablet Take 1 tablet by mouth two times a day for 3 days. Start day before procedure. - alendronate (FOSAMAX) 35 mg tablet Take 1 tablet by mouth one time a week. - estradiol (ESTRACE) 0.01 % (0.1 mg/gram) vaginal cream apply one gram or soybean sized amount over the vaginal opening every night for 2 weeks then 2 evenings per week - fluticasone (FLONASE) 50 mcg/actuation nasal spray Use 2 Sprays in each nostril once daily. Rinse mouth after use. - vit C/E/cuperic/zinc/lute in (PRESERVISION LUTEIN ORAL) Take by mouth twice daily. - cyanocobalamin (VITAMIN B-12) 1,000 mcg tab Take 1 tablet by mouth once daily. - calcium carbonate (CALCIUM 600) 600 mg calcium (1,500 mg) tab Take 0.5 tablets by mouth once daily. Problem List As Of Date 02/05/2024 Noted Resolved Chronic left-sided low back pain without sciati*05/22/2018 10/16/2023 DDD (degenerative disc disease), lumbar [M51.36]04/08/2021 Vitamin B12 deficiency [E53.8] 06/19/2021 Solitary pulmonary nodule [R91.1] 10/16/2023 Osteoporosis [M81.0] 10/16/2023 Hx of seizure disorder [Z86.69] 10/16/2023 Uterovaginal prolapse, incomplete [N81.2] 10/26/2023 Cystocele, midline [N81.11] 10/26/2023 Rectocele [N81.6] 10/26/2023 Prescriptions ordered this encounter Disp Refills Start End SULFAMETHOXAZOLE 800 MG-TRIMETHOPRIM* 6 ta* 0 02/11/2024 02/14/2024 Route: ORAL Sig: Take 1 tablet by mouth two times a day for 3 days. Start day before procedure. Encounter Status:Closed by ELIZABETH TOMAS on 02/05/24 Normal [facility] CNOVon 12-02-2023 CNOV Office Visit (GYNURM ) PHYLLIS SANCHEZ ([id number]) 1950 F Date Time Provider Department 12/02/23 10:30 AM MICHAEL MANZANARES During your visit today, we recorded the following information about you: Pulse Blood pressure 87/minute 134/84 Michael Manzanares MD 12/02/2023 11:19 AM Signed Female Pelvic Medicine AND Reconstructive Surgery Post-Op Visit Phyllis Sanchez is a 72 year old year old female who presents for a 4 Week post-op check s/p Procedure(s): Transvaginal hysterectomy, Right salpingectomy , Uterosacral ligament suspension of the vaginal vault/intraperitoneal colpopexy, Anterior colporrhaphy, Perineorrhaphy, and Cystoscopy Anesthesia: General Findings: - Stage 3 Uterovaginal prolapse, Stage 3 cystocele, Stage 2 rectocele - Normal appearing uterus and cervix - Normal fallopian tubes and ovaries bilaterally - Normal 360 degree cysto without evidence of trauma, suture, or foreign body seen; ureteral orifice efflux seen bilaterally; urethra within normal limits -Vaginal sweep was negative -Rectal exam confirms no suture material in the rectum - 2 cc of PRP injected at bilateral uterosacral stitch sites Post-op complications: yes urinary retention requiring allen catheter, passed VT on POD#3. She states she is leaking urine with cough/sneeze. Bleeding: no Pain: no If you had pain related to your prolapse before surgery, has your pain resolved? Not Applicable Abnormal vaginal discharge: no Pathology: FINAL DIAGNOSIS A. Uterus and cervix, vaginal hysterectomy -Cervix: No significant pathologic abnormality -Endometrium: Benign inactive endometrium -Myometrium: No significant pathologic abnormality -Serosa: No significant pathologic abnormality B. Fallopian tube, right, salpingectomy -Fimbriated fallopian tube with no significant pathologic abnormality She is happy to not have a bulge! PFDI-20 Do you: Usually experience pressure in the lower abdomen? No (0) Usually experience heaviness or dullness in the pelvic area? No (0) Usually have a bulge or something falling out that you can see or feel in your vaginal area? No (0) Ever have to push on the vagina or around the rectum to have or complete a bowel movement? No (0) Usually experience a feeling of incomplete bladder emptying? No (0) Ever have to push up on a bulge in the vaginal area with your fingers to start or complete urination? No (0) Feel you need to strain too hard to have a bowel movement? Yes, not at all bothersome (1) Feel you have not completely emptied your bowels at the end of a bowel movement? Yes, somewhat bothersome (2) Usually lose stool beyond your control if your stool is well formed? No (0) Usually lose stool beyond your control if your stool is loose? Yes, not at all bothersome (1) Usually lose gas from the rectum beyond your control? Yes, somewhat bothersome (2) Usually have pain when you pass your stool? No (0) Experience a strong sense of urgency and have to harley to the bathroom to have a bowel movement? Yes, not at all bothersome (1) Does part of your bowel ever pass through the rectum and bulge outside during or after a bowel movement? No (0) Usually experience frequent urination? Yes, not at all bothersome (1) Usually experience urine leakage associated with a feeling of urgency, that is, a strong sensation of needing to go to the bathroom? Yes, somewhat bothersome (2) Usually experience urine leakage related to coughing, sneezing or laughing? Yes, quite a bit bothersome (4) Usually experience small amounts of urine leakage (that is, drops)? Yes, quite a bit bothersome (4) Usually experience difficulty emptying your bladder? No (0) Usually experience pain or discomfort in the lower abdomen or genital region? No (0) Overall, how satisfied were you with your postoperative pain medication? Very satisfied With regard to your expectations before surgery, did you have the amount of pain you expected, more pain, or less pain? About the amount of pain I expected Was the preoperative teaching you had about pain expectations helpful? Yes Were the discharge instructions you received about pain medications helpful? Yes Body And Fender Mechanic Apprentice offered, exam chaperoned by Tanya Kamara RN OBJECTIVE: BP 134/84 Pulse 87 General Appearance: Appears stated age, comfortable, No acute distress Abdomen: Benign, soft, non-tender, no hernia, masses. Pelvic examination: Vulva/Perineum: Normal development, no lesions, perineal incision healing well Urethral Meatus:Normal location and size, no lesions Urethra: No masses, tenderness or scarring Bladder:No masses, no tenderness Vagina: Good vaginal support, suture material present, incision healing well, and atrophic Cervix: surgically absent Uterus: surgical absent Adnexa:No masses, tenderness or nodularity NEG EBCST ASSESMENT: Augustine (more content not included)... Normal [facility] UA DIP, URINE (POC)on 2023 BILIRUBIN UA (POCT) Negative Negative [facility] CLARITY UA (POCT) Clear [facility] COLOR UA (POCT) Yellow [facility] GLUCOSE UA (POCT) Negative Negative mg/dL [facility] Hemoglobin Ql (U) Large Abnormal Negative [facility] Interpretation and review of laboratory results Abnormal [facility] KETONE UA (POCT) Negative Negative mg/dL [facility] LEUKOCYTES UA (POCT) Negative Negative [facility] NITRITE UA (POCT) Negative Negative [facility] PH UA (POCT) 8.0 4.5 - 8.0 [facility] Protein Ql (U) Negative Negative mg/dL [facility] SPECIFIC GRAVITY UA (POCT) 1.015 1.005 - 1.030 [facility] UROBILINOGEN UA (POCT) 0.2 Elo l E.U./dL [facility] Location:[facility], [address] [place] [address] [address], [place], [address] [place] [address] POINT OF CARE [facility] ANES POSTPROC EVALon 024 ANES POSTPROC EVAL HNO ID: [id number] Author: JUSTINO HENDERSON MD Service: Anesthesiology Author Type: Anesthesiologist Type: Anesthesia Postprocedure Evaluation Filed: 10/27/2023 16:04 Note Text: POST ANESTHESIA EVALUATION NOTE : 1950 Procedure Summary Date: 10/27/23 Room / Location: [address] / OR Anesthesia Start: 731 Anesthesia Stop: 1057 Procedures: COLPOPEXY VAGINAL VAULT SUSPENSION INTRA-PERITONEAL APPROACH (Bilateral: Vagina ) HYSTERECTOMY VAGINAL UTERUS 250G OR LESS REMOVAL TUBE(S) AND/OR OVARY(S) (Vagina ) COMBINED ANTERIOPOSTERIOR COLPORRHAPHY INCLUDING CYSTOURETHROSCOPY WHEN PERFORMED (Vagina ) PERINEOPLASTY, NON-OBSTETRICAL (Vagina ) Diagnosis: Uterovaginal prolapse, incomplete Cystocele, midline Rectocele (Uterovaginal prolapse, incomplete [N81.2]) (Cystocele, midline [N81.11]) (Rectocele [N81.6]) Surgeons: Michael Manzanares MD Responsible Provider: Justino Henderson MD Anesthesia Type: general ASA Status: 2 Anesthesia Type: general Airway Type: ETT Last Vitals Vitals Value Taken Time BP 108/59 10/27/23 1300 Temp 36.5 ?C (97.7 ?F) 10/27/23 1300 Pulse 75 10/27/23 1300 Resp 16 10/27/23 1300 SpO2 95 % 10/27/23 1300 Post Anesthesia Patient Status Patient Evaluation: bedside. Neurological Status: sleepy but arousable. Pulmonary Status: breathing comfortably on supplemental oxygen Airway Control: returned to baseline unsupported. Cardiovascular Status: stable. Pain Management: clinically adequate Postoperative Hydration: acceptable. Intraoperative Events: no significant anesthesia events Recommendation: continue current plan of care. Anesthesia Observations No Documentation SIGNATURE: Justino Henderson MD PATIENT NAME: Phyllis Sanchez DATE: October 27, 2023 TIME: 4:04 PM CSN: [id number] [facility] ANES PRE-OPon 10-27-2023 ANES PRE-OP HNO ID: [id number] Author: JUSTINO HENDERSON MD Service: Anesthesiology Author Type: Anesthesiologist Type: Anesthesia Preprocedure Evaluation Filed: 10/27/2023 07:08 Note Text: ANESTHESIOLOGY DAY OF SURGERY NOTE : 1950 Procedure Information Date/Time: 10/27/23729 Procedures: COLPOPEXY VAGINAL VAULT SUSPENSION INTRA-PERITONEAL APPROACH (Bilateral: Vagina ) HYSTERECTOMY VAGINAL UTERUS 250G OR LESS REMOVAL TUBE(S) AND/OR OVARY(S) (Vagina ) COMBINED ANTERIOPOSTERIOR COLPORRHAPHY INCLUDING CYSTOURETHROSCOPY WHEN PERFORMED (Vagina ) PERINEOPLASTY, NON-OBSTETRICAL (Vagina ) Location: [facility] / OR Surgeons: Michael Manzanares MD Estimated body mass index is 19.59 kg/m? as calculated from the following: Height as of 10/16/23: 153.7 cm (5' 0.5). Weight as of 10/16/23: 46.3 kg (102 lb). Most recent hematocrit and potassium results: Hematocrit 41.6 10/16/2023 Potassium 4.6 09/28/2023 Relevant Problems NEURO-PSYCH (+) Hx of seizure disorder I - PHYSICAL EVALUATION AIRWAY Patient intubated: No. Tracheostomy tube not present Mallampati: II. TM distance: >3 FB. Neck ROM: full ROM without neurological symptoms. Mouth opening: adequate. Short neck: no. Thick neck: no DENTAL Dental findings: teeth intact. II - ANESTHESIA PLAN ASA Score: 2 Anesthetic Plan: general Airway type: ETT The patient is not a current smoker. NPO Status: adequate Beta Joesph Monitoring Plan Monitoring plan: standard ASA. Post Procedure Analgesic Plan Postoperative analgesic plan: parenteral or oral opioids. Informed Consent Anesthetic risks, benefits, alternatives, personnel and consent discussed: yes. Patient / Responsible Alliance Party agrees to proceed: yes Patient / Surrogate agrees to blood products: Yes Potential Anesthesia issues that may suggest increased risk of complications or contraindication to planned procedure: none. No vitals data found for the desired time range. Facility-Administered Medications as of 10/27/2023 Medication Dose Route Frequency acetaminophen 1,000 mg tab(s) (TYLENOL) 1,000 mg ORAL ONCE cefOXitin 2 g in NaCl 0.9% 100 mL Vial-Bag (MEFOXIN) 2 g INTRAVENOUS q 2 H [COMPLETED] celecoxib 200 mg cap(s) (CeleBREX) 200 mg ORAL Pre-Op Once [COMPLETED] phenazopyridine 200 mg tab(s) (PYRIDIUM) 200 mg ORAL Pre-Op Once [COMPLETED] acetaminophen 1,000 mg tab(s) (TYLENOL) 1,000 mg ORAL Pre-Op Once lidocaine 10 mg/mL (1 %) 1-2 mg injection (XYLOCAINE) 0.1-0.2 mL INTRADERMAL PRN lactated ringers iv infusion 5-30 mL/hr INTRAVENOUS CONTINUOUS NaCl 0.9% iv flush bag 20 mL INTRAVENOUS PRN Outpatient Medications as of 10/27/2023 Medication Sig estradiol (ESTRACE) 0.01 % (0.1 mg/gram) vaginal cream apply one gram or soybean sized amount over the vaginal opening every night for 2 weeks then 2 evenings per week fluticasone (FLONASE) 50 mcg/actuation nasal spray Use 2 Sprays in each nostril once daily. Rinse mouth after use. vit C/E/cuperic/zinc/lute in (PRESERVISION LUTEIN ORAL) Take by mouth twice daily. cyanocobalamin (VITAMIN B-12) 1,000 mcg tab Take 1 tablet by mouth once daily. calcium carbonate (CALCIUM 600) 600 mg calcium (1,500 mg) tab Take 0.5 tablets by mouth once daily. alendronate (FOSAMAX) 35 mg tablet Take 1 tablet by mouth one time a week. I have interviewed and examined the patient. I have reviewed the medical record and/or the pre-anesthesia evaluation, pertinent labs, and test results. This contains updated information obtained within 48 hours of Surgery/Procedure. SIGNATURE: Justino Henderson MD PATIENT NAME: Phyllis Sanchez DATE: October 27, 2023 TIME: 6:55 AM CSN: [id number] [facility] BRIEF OP NOTon 10-27-2023 BRIEF OP NOT HNO ID: [id number] Author: DOROTA BARR DO Service: Urogynecology Author Type: Fellow Type: Brief Op Note Filed: 10/27/2023 10:45 Note Text: BRIEF OPERATIVE / PROCEDURE NOTE LOG ID: [id number] Surgery/Procedure Date: 10/27/2023 Incision/Procedure Start Time: 8:10 AM Incision Close/Procedure End Time: 10:32 AM Surgeon(s)/Procedural ist(s) and Test Tube Maker(s): Surgeon(s) and Role: * Michael Manzanares MD - Primary * Dorota Barr DO - Fellow No Additional Staff Procedure(s): Transvaginal hysterectomy, Right salpingectomy , Uterosacral ligament suspension of the vaginal vault/intraperitoneal colpopexy, Anterior colporrhaphy, Perineorrhaphy, and Cystoscopy Anesthesia: General Findings: - Stage 3 Uterovaginal prolapse, Stage 3 cystocele, Stage 2 rectocele - Normal appearing uterus and cervix - Normal fallopian tubes and ovaries bilaterally - Normal 360 degree cysto without evidence of trauma, suture, or foreign body seen; ureteral orifice efflux seen bilaterally; urethra within normal limits -Vaginal sweep was negative -Rectal exam confirms no suture material in the rectum - 2 cc of PRP injected at bilateral uterosacral stitch sites Estimated Blood Loss: 50 mls IVF/UOP: per anesthesia records Antibiotics: Cefoxitin Specimens: ID Type Source Tests Collected by Time Destination A : Tissue Uterus and Cervix SURGICAL PATHOLOGY Michael Manzanares MD 10/27/2023 8:38 AM B : right fallopian tube Tissue Fallopian Tube, Right, Resection SURGICAL PATHOLOGY Michael Manzanares MD 10/27/2023 8:50 AM VTE Prophylaxis: SCDs for mechanical prophylaxis Complications: None Implanted Devices: * No implants in log * Pre-Op/Pre-Procedure Diagnosis: Cystocele, Uterovaginal prolapse, Rectocele, Stress urinary incontinence, Urge urinary incontinence, and Fecal incontinence Post-Op/Post-Procedur e Diagnosis: same SIGNATURE: Dortoa Barr DO DATE: October 27, 2023 PATIENT NAME: Phyllis Sanchez TIME: 10:44 AM [facility] CONFIRM BLOOD TYPEon 024 ABO A [facility] Comment on above: Order Comment: Speci men Type: BLOOD SPECIMEN Ordering Facility: [facility] Address: [address] [place] [address] Performed By: #### C ONABO #### [facility] CLIA [id number] [address] [place] [address] [place] Rh Nom (Bld) Positive [facility] Comment on above: Order Comment: Speci men Type: BLOOD SPECIMEN Ordering Facility: [facility] Address: [address] [place] [address] Performed By: #### C ONABO #### [facility] CLIA [id number] [address] [place] [address] OF [place] NURSING PROGon 10-27-2023 NURSING PROG HNO ID: [id number] Author: JEANE VILLARREAL RN Service: ? Author Type: Registered Nurse Type: Nursing Progress Note Filed: 10/27/2023 18:13 Note Text: Other: voiding trial started. 1730 Patient failed voiding trial. Allen catheter placed. Notified Dr. Barr. 1745 Per instructions- patient instructed to follow up in [place] office on Thursday for Allen catheter removal and to check MYCHART for time of appointment. [facility] OPERATIVE NOon 10-27-2023 OPERATIVE NO HNO ID: [id number] Author: MICHAEL MANZANARES MD Service: Urogynecology Author Type: Physician Type: Operative Report Filed: 10/29/2023 11:30 Note Text: OPERATIVE/PROCEDURE REPORT LOG ID: [id number] Surgery/Procedure Date: 10/27/2023 Incision/Procedure Start Time: 8:10 AM Incision Close/Procedure End Time: 10:32 AM Surgeon(s)/Procedural ist(s) and Test Tube Maker(s): Surgeon(s) and Role: * Michael Manzanares MD - Primary * Dorota Barr DO - Fellow No Additional Staff Procedure(s): Transvaginal hysterectomy, Right salpingectomy , Uterosacral ligament suspension of the vaginal vault/intraperitoneal colpopexy, Anterior colporrhaphy, Perineorrhaphy, and Cystoscopy Anesthesia: General Findings: - Stage 3 Uterovaginal prolapse, Stage 3 cystocele, Stage 2 rectocele - Normal appearing uterus and cervix - Normal fallopian tubes and ovaries bilaterally - Normal 360 degree cysto without evidence of trauma, suture, or foreign body seen; ureteral orifice efflux seen bilaterally; urethra within normal limits -Vaginal sweep was negative -Rectal exam confirms no suture material in the rectum - 2 cc of PRP injected at bilateral uterosacral stitch sites Estimated Blood Loss: 50 mls IVF/UOP: per anesthesia records Antibiotics: Cefoxitin Specimens: ID Type Source Tests Collected by Time Destination A : Tissue Uterus and Cervix SURGICAL PATHOLOGY Michael Manzanares MD 10/27/2023 8:38 AM B : right fallopian tube Tissue Fallopian Tube, Right, Resection SURGICAL PATHOLOGY Michael Manzanares MD 10/27/2023 8:50 AM VTE Prophylaxis: SCDs for mechanical prophylaxis Complications: None Implanted Devices: None Pre-Op/Pre-Procedure Diagnosis: Cystocele, Uterovaginal prolapse, Rectocele Post-Op/Post-Procedur e Diagnosis: same Drains: Allen Catheter Indications: The patient is a 72 year old with pelvic organ prolapse. Preoperative POP-Q was performed with the findings as shown below. Cough stress test in the office was negative. The patient desired surgical management of her pelvic organ prolapse. She desired removal of fallopian tubes for cancer-risk reduction. She understood that a staged procedure for incontinence may be needed. On pre-operative POP-Q exam: Aa 2 Ba 2 C -4 gh 3.5 pb 3 tvl 7 Ap 0.5 Bp 0.5 D -6 She was counseled about all the risks, benefits, alternatives, complications, indications, and personnel of the procedures performed which she accepted. An informed consent was signed. Procedure Details: The patient was taken to the operating room where a surgical time-out and safety checklist were performed. The patient was then given prophylactic antibiotics and sequential compression devices were applied bilaterally. She underwent general anesthesia without any difficulty. She was positioned in the dorsal lithotomy position using yellowfin stirrups, making sure that her lower extremities were not overly extended or flexed. She was prepped and draped in the normal sterile fashion. A final time out was performed. A Allen catheter was inserted and the bladder was drained of urine. The cervix was grasped with a Sherwood tenaculum. The cervical epithelium was injected with lidocaine with epinephrine. Once blanching was noted throughout, a circumferential incision was made on the cervix. Dissection was then performed anteriorly until the vesicouterine peritoneum could be identified which was elevated and entered sharply. One finger confirmed proper entry, and a long right-angle retractor was placed into the abdominal cavity. The posterior peritoneum was then grasped with pick-ups and entered sharply with Herrmann scissors. A long Alhaji weighted retractor was then placed into the posterior cul-de-sac. The uterosacral ligaments were cross-clamped with a Richy clamp bilaterally, transected and suture ligated with 0 Vicryl. These were tagged for later use. The cardinal ligaments were cross-clamped, transected and suture ligated with 0 Vicryl. The broad ligament including the uterine vessels were then cross-clamped, transected, and suture ligated with 0 Vicryl. The utero-ovarian ligament was doubly cross-clamped and transected. The utero-ovarian pedicle was tied with a free-tie and suture-transfixed with a 0 Vicryl. This was repeated on the other side. The tubes and ovaries were examined bilaterally and noted to be completely normal both on visual inspection and with palpation. The left fallopian tube was located too proximal and the decision was made to forego salpingectomy on that side due to the risk of bleeding and injury. We then grabbed the right fallopian tube with a [place]. It was clamped with a Zeppelin clamp, cut and suture ligated with a 2-0 Vicryl. Excellent hemostasis was noted. All specimen were sent to pathology. A [id number] sutures of 0-Vicryl was placed along the right lateral vaginal cuff for hemostasis. The long weighted retractor was then re (more content not included)... Normal [facility] SURGICAL PATHOLOGYon 024 CASE REPORT [facility] Comment on above: Order Comment: Speci men Type: TISSUE SPECIMEN Ordering Facility: [facility] Address: [address] [place] [address] [place] [address] Result Comment: Surg [facility] Pathology Report Case: [id number] Authorizing Provider: Michael Manzanares MD Collected: 10/27/2023 08:38 AM Ordering Location: [facility] Received: 10/27/2023 11:10 AM Surgical Services Pathologist: Isabella Lin MD Specimens: A) - Uterus and Cervix B) - Fallopian Tube, Right, Resection, right fallopian tube Performed By: #### S #### [facility] CLIA [id number] [address] [place] [address] OF [place] CLINICAL HISTORY Normal [facility] Comment on above: Order Comment: Speci men Type: TISSUE SPECIMEN Ordering Facility: [facility] Address: [address] [place] [address] Result Comment: Pre- op diagnosis: Uterovaginal prolapse, incomplete [N81.2] Cystocele, midline [N81.11] Rectocele [N81.6] Performed By: #### S #### [facility] CLIA [id number] [address] [place] [address] FINAL DIAGNOSIS Normal [facility] Comment on above: Order Comment: Speci men Type: TISSUE SPECIMEN Ordering Facility: [facility] Address: [address] [place] [address] Result Comment: A. U terus and cervix, vaginal hysterectomy -Cervix: No significant pathologic abnormality -Endometrium: Benign inactive endometrium -Myometrium: No significant pathologic abnormality -Serosa: No significant pathologic abnormality B. Fallopian tube, right, salpingectomy -Fimbriated fallopian tube with no significant pathologic abnormality Performed By: #### S #### [facility] CLIA [id number] [address] [place] [address] FINAL PERFORMING LAB Normal [facility] Comment on above: Order Comment: Speci men Type: TISSUE SPECIMEN Ordering Facility: [facility] Address: [address] [place] [address] Result Comment: Diag nostic interpretation performed at [facility], [address] [place] [address] CLIA# [id number] Dough Mixer: Chase Will M.D. Performed By: #### S #### [facility] CLIA [id number] [address] [place], [place] [address] [address] [place] GROSS DES[facility] Comment on above: Order Comment: Speci men Type: TISSUE SPECIMEN Ordering Facility: [facility] Address: [address] [place] [address] Result Comment: A. U terus and Cervix Received in formalin labeled uterus and cervix is a uterus with attached cervix only, weighing 26.3 g and measuring 5.8 x 3.4 x 2.3 cm. The serosal surface is rodriguez and smooth. The ectocervix is silvestre and irregular, and demonstrates a patent ovoid cervical os. The endocervical canal measures 2.6 cm in length and is unremarkable. The endometrial cavity measures 2.5 cm in length by 2.0 cm in greatest width. The endometrium is pink and velvety with a thickness of 1 mm. No polyps or discrete lesions are identified. The myometrium measures up to 1.0 cm in thickness and is unremarkable. [employer] sections are submitted as follows: A1 anterior cervix at 12:00 A2 posterior cervix at 6:00 A3 anterior uterine wall full-thickness A4 posterior uterine wall full-thickness B. Fallopian Tube, Right, Resection Received in formalin labeled right fallopian tube is a 3.5 cm in length by 0.4 cm in diameter fimbriated fallopian tube. The outer surface is pink and unremarkable. Sectioning reveals a pinpoint lumen and unremarkable cut surfaces. The specimen is sectioned and entirely submitted in one cassette. Gross examination performed at [facility], [address] [facility], [place] [address] CLIA# [id number] [facility] 10/27/23 Performed By: #### S #### [facility] CLIA [id number] [address] [place] [address] [place] TYPE + SCREENon 10-27-2023 ABO A [facility] Comment on above: Order Comment: Speci men Type: BLOOD SPECIMENOrdering Facility: [facility] Address: [address] [place], [place] [id number] Performed By: #### T SCR ####[facility] [id number] [place] [address] [place] HISTORICAL AB SCR STATUS Negative [facility] Comment on above: Order Comment: Speci men Type: BLOOD SPECIMENOrdering Facility: [facility] Address: [address] [place] [address] Performed By: #### T SCR ####[facility] [id number] [address] STATES OF [place] Rh Nom (Bld) Positive [facility] Comment on above: Order Comment: Speci men Type: BLOOD SPECIMENOrdering Facility: [facility] Address: [address] [place] [address] Performed By: #### T SCR ####[facility] [id number] [place] [address] [place] TYPE AND SCREEN EXPIRATION 10/30/2023 23:59 [facility] Comment on above: Order Comment: Speci men Type: BLOOD SPECIMENOrdering Facility: [facility] Address: [address] [place] [address] Performed By: #### T SCR ####[facility] [id number] [address] STATES OF [place] 25-hydroxyvitamin D3 [Mass/V ol]on 09-28-2023 Interpretation and review of laboratory results Normal [facility] The reference range interval was based on an analysis of samples from healthy adults and may not pertain to children from 0-18 years old. [facility] VITAMIN D 25 HYDROXYon 09-27 25-hydroxyvitamin D3 [Mass/Vol] 51.1 ng/mL 31.0 - 80.0 ng/mL [facility] Comment on above: Classification of 25 [place] Vitamin D status: Deficiency/Insufficiency: < or = 30 ng/ml. Sufficiency/Optimal Levels: 31-80 ng/mL Toxicity: > 100 ng/mL. Test performed by chemiluminescent immunoassay. UA DIP, URINE (POC)on 2023 BILIRUBIN UA (POCT) Negative Negative [facility] CLARITY UA (POCT) Clear [facility] COLOR UA (POCT) Yellow [facility] GLUCOSE UA (POCT) Negative Negative mg/dL [facility] Hemoglobin Ql (U) Negative Negative [facility] KETONE UA (POCT) Negative Negative mg/dL [facility] LEUKOCYTES UA (POCT) Negative Negative [facility] NITRITE UA (POCT) Negative Negative [facility] PH UA (POCT) 6.0 4.5 - 8.0 [facility] Protein Ql (U) Negative Negative mg/dL [facility] SPECIFIC GRAVITY UA (POCT) 1.015 1.005 - 1.030 [facility] UROBILINOGEN UA (POCT) 0.2 E.U./dL Elo l E.U./dL [facility] Gram stain for investigation of transfusion reactionOrdered By: Marcos Puente on 06-01-2023 Microscopic observation Gram stain Nom (Unsp spec) [facility] Microscopic observation Gram stain Nom (Unsp spec) [facility] No Panel InformationOrdered By: Marcos Puente on 06-01-2023 Nasopharyngeal Culture No growth in 48 hours. [facility] Nasopharyngeal Culture No growth in 48 hours. [facility] Basophil percentageOrdered B y: Abdirahman Mensah on 03-17-2023 Basophil percentage < 0.9 mg/dL 0.55-1.02 [facility] No Panel InformationOrdered By: Abdirahman Mensah on 03-17-2023 Bedside Estimated GFR (eGFR) > 60.0000 mL/min >60 [facility] XR Foot - right AP and Later al and obliqueon 03-09-2023 IMPRESSION: Fracture fourth toe proximal phalanx Customer Care Voice Consultant: JESS Transcribe Date/Time: Mar 09 2023 3:07P Dictated by : ISELA CALHOUN MD This examination was interpreted and the report reviewed and electronically signed by: ISELA CALHOUN MD on Mar 09 2023 3:09PM [facility] DIVISION OF RADIOLOGY * * *Final Report* * * DATE OF EXAM: Mar 05 2023 9:06AM WOX [id number] - XR FOOT 3V AP/LAT/OBL RT / PROCEDURE REASON: Right foot pain * * * * Physician Interpretation * * * * Right foot HISTORY: 72 years old Clinical information: Right foot pain RIght 4th toe pain that radiates up into the dorsal forefoot area x 2 weeks after a jamming injury. TECHNIQUE: Images: XR FOOT 3V AP/LAT/OBL RT Comparison: None. RESULT: Findings: Shallow oblique nondisplaced fracture fourth toe proximal phalanx. No periosteal reaction is evident. No subluxation. DIVISION OF RADIOLOGY Provider, [facility] - 03/09/2023 * * *Final Report* * * DATE OF EXAM: Mar 05 2023 9:06AM WOX [id number] - XR FOOT 3V AP/LAT/OBL RT / PROCEDURE REASON: Right foot pain * * * * Physician Interpretation * * * * Right foot HISTORY: 72 years old Clinical information: Right foot pain RIght 4th toe pain that radiates up into the dorsal forefoot area x 2 weeks after a jamming injury. TECHNIQUE: Images: XR FOOT 3V AP/LAT/OBL RT Comparison: None. RESULT: Findings: Shallow oblique nondisplaced fracture fourth toe proximal phalanx. No periosteal reaction is evident. No subluxation. IMPRESSION IMPRESSION: Fracture fourth toe proximal phalanx Customer Care Voice Consultant: PSCB Transcribe Date/Time: Mar 09 2023 3:07P Dictated by : ISELA CALHOUN MD This examination was interpreted and the report reviewed and electronically signed by: ISELA CALHOUN MD on Mar 09 2023 3:09PM EST [facility] XR Foot - right AP and Later al and obliqueOrdered By: Ccf Provider on 03-09-2023 [facility] TAYLOR SCREENING W Emy 03-06 [facility] Basic metabolic 2000 panelon 03-05-2023 Anion gap [Moles/Vol] 9 mmol/L 9 - 18 mmol/L [facility] Calcium [Mass/Vol] 9.0 mg/dL 8.5 - 10. 2 mg/dL [facility] Chloride [Moles/Vol] 104 mmol/L 97 - 10 5 mmol/L [facility] CO2 [Moles/Vol] 27 mmol/L 22 - 30 mmol/L [facility] Creatinine [Mass/Vol] 0.65 mg/dL 0.58 - 0.96 mg/dL [facility] Estimated Glomerular Filtration Rate 95 mL/min/1.73m >=60 mL/min/1.73m [facility] Glucose [Mass/Vol] 75 mg/dL 74 - 99 mg/dL [facility] Potassium [Moles/Vol] 4.0 mmol/L 3.7 - 5.1 mmol/L [facility] Sodium [Moles/Vol] 140 mmol/L 136 - 144 mmol/L [facility] Urea nitrogen [Mass/Vol] 14 mg/dL 7 - 21 mg/dL [facility] CBC panel Auto (Bld)on 03-05 Erythrocyte distribution width (RBC) [Ratio] 13.3 % 11.5 - 15.0 % [facility] Hematocrit (Bld) [Volume fraction] 40.2 % 36.0 - 46.0 % [facility] Hemoglobin (Bld) [Mass/Vol] 13.1 g/dL 11.5 - 15.5 g/dL [facility] MCH (RBC) [Entitic mass] 30.5 pg 26.0 - 34.0 pg [facility] MCHC (RBC) [Mass/Vol] 32.6 g/dL 30.5 - 36.0 g/dL [facility] MCV (RBC) [Entitic vol] 93.5 fL 80.0 - 100.0 fL [facility] Nucleated RBC (Bld) [#/Vol] <0.01 k/uL [facility] Platelet mean volume (Bld) [Entitic vol] 10.4 fL 9.0 - 12.7 fL [facility] Platelets (Bld) [#/Vol] 236 10*3/uL 150 - 400 k/uL [facility] RBC (Bld) [#/Vol] 4.30 10*6/uL 3.90 - 5.2 0 m/uL [facility] WBC (Bld) [#/Vol] 4.15 10*3/uL 3.70 - 11. 00 k/uL [facility] Urinalysis complete panel (U )on 03-05-2023 Bacteria LM.HPF (Urine sed) [#/Area] Negative Negative /HPF [facility] Bilirubin Ql (U) Negative Negative [facility] Clarity (Unsp spec) Clear Clear [facility] Color (U) Yellow Yellow [facility] Epithelial cells LM.HPF (Urine sed) [#/Area] None Seen [facility] Glucose Test strip (U) [Mass/Vol] Negative Negative [facility] Hemoglobin Ql (U) Negative Negative [facility] Hyaline casts (Urine sed) [#/Area] 0 /[LPF] 0 /LPF [facility] Ketones Ql (U) Negative Negative [facility] Leukocyte esterase Test strip Ql (U) Negative Negative [facility] Nitrite Ql (U) Negative Negative [facility] pH (U) 6.5 [pH] <8.5 [facility] Protein (U) [Mass/Vol] Negative Negative [facility] RBC LM.HPF (Urine sed) [#/Area] 0-2 /HPF 0-2 /HPF [facility] Specific gravity (U) [Rel density] 1.021 1.005 - 1.030 [facility] Urobilinogen Ql (U) 0.2 EU/dL 0.2-1.0 EU/dL Cl [facility] WBC LM.HPF (Urine sed) [#/Area] 0-5 /HPF 0-5 /HPF [facility] XR Foot - right AP and Later al and obliqueon 03-05-2023 Radiology Study observation (narrative) [facility] XR Lumbar spine 3 Viewson IMPRESSION: DEGENERATIVE CHANGE IN ALIGNMENT ABNORMALITIES DESCRIBED. MILD PROGRESSION FROM THE PRIOR STUDY Customer Care Voice Consultant: PSCB Transcribe Date/Time: Sep 02 2022 5:17P Dictated by : DIONE DAVIS MD This examination was interpreted and the report reviewed and electronically signed by: DIONE DAVIS MD on Sep 02 2022 5:18PM [facility] DIVISION OF RADIOLOGY * * *Final Report* * * DATE OF EXAM: Sep 01 2022 2:34PM WOX [id number] - XR LUMBAR 3V AP/LAT/L5-S1 / PROCEDURE REASON: multiple diagnoses * * * * Physician Interpretation * * * * Examination: XR LUMBAR 3V AP/LAT/L5-S1 History: Chronic right-sided low back pain without sciatica Technique: XR LUMBAR 3V AP/LAT/L5-S1 Comparison: 03/18/2021 RESULT: 5 lumbar type vertebrae. For numbering purposes, L4-5 is at the level of the iliac crest. Moderate to severe L3-4 disc space narrowing. Moderate L2-3 disc space narrowing. Mild spondylosis and osteophytosis throughout. No fracture or focal bony abnormality. Mild levoscoliosis of the lower lumbar region. SI joints are unremarkable DIVISION OF RADIOLOGY Provider, Cc Rosio Alvarado - 09/02/2022 * * *Final Report* * * DATE OF EXAM: Sep 01 2022 2:34PM WOX 5228 - XR LUMBAR 3V AP/LAT/L5-S1 / PROCEDURE REASON: multiple diagnoses * * * * Physician Interpretation * * * * Examination: XR LUMBAR 3V AP/LAT/L5-S1 History: Chronic right-sided low back pain without sciatica Technique: XR LUMBAR 3V AP/LAT/L5-S1 Comparison: 03/18/2021 RESULT: 5 lumbar type vertebrae. For numbering purposes, L4-5 is at the level of the iliac crest. Moderate to severe L3-4 disc space narrowing. Moderate L2-3 disc space narrowing. Mild spondylosis and osteophytosis throughout. No fracture or focal bony abnormality. Mild levoscoliosis of the lower lumbar region. SI joints are unremarkable IMPRESSION IMPRESSION: DEGENERATIVE CHANGE IN ALIGNMENT ABNORMALITIES DESCRIBED. MILD PROGRESSION FROM THE PRIOR STUDY Customer Care Voice Consultant: JESS Transcribe Date/Time: Sep 02 2022 5:17P Dictated by : DIONE DAVIS MD This examination was interpreted and the report reviewed and electronically signed by: DIONE DAIVS MD on Sep 02 2022 5:18PM EST [facility] XR Lumbar spine 3 ViewsOrder ed By: Ccf Provider on 09-02-2022 [facility] XR Lumbar spine 3 Viewson Radiology Study observation (narrative) [facility] STREP A MOLECULAR (POC)on Procedural Control Valid [facility] Strep A (POCT) Negative Negative [facility] UA DIP, URINE (POC)on 2021 BILIRUBIN UA (POCT) Negative Negative [facility] CLARITY UA (POCT) Clear [facility] COLOR UA (POCT) Light yellow [facility] GLUCOSE UA (POCT) Negative Negative mg/dL [facility] HEMOGLOBIN/BLOOD UA (POCT) Negative Negative [facility] KETONE UA (POCT) Negative Negative mg/dL [facility] LEUKOCYTES UA (POCT) Negative Negative [facility] NITRITE UA (POCT) Negative Negative [facility] PH UA (POCT) 6.5 4.5 - 8.0 [facility] Protein Ql (U) Negative Negative mg/dL [facility] SPECIFIC GRAVITY UA (POCT) 1.015 1.005 - 1.030 [facility] UROBILINOGEN UA (POCT) 0.2 E.U./dL Elo l E.U./dL [facility] TAYLOR SCREENING W TOMOon 01-16 [facility] XR Chest PA and Lateralon IMPRESSION: No acute radiographic abnormality. Customer Care Voice Consultant: PSCMorena Transcribe Date/Time: Jun 19 2021 11:45A Dictated by : DIONE DAVIS MD This examination was interpreted and the report reviewed and electronically signed by: DIONE DAVIS MD on Jun 19 2021 11:45AM [facility] DIVISION OF RADIOLOGY * * *Final Report* * * DATE OF EXAM: Jun 19 2021 11:18AM WOX 5291 - XR CHEST 2V FRONTAL/LAT / PROCEDURE REASON: Abnormal x-ray * * * * Physician Interpretation * * * * EXAMINATION: CHEST RADIOGRAPH (2 VIEW FRONTAL & LATERAL) CLINICAL HISTORY: Abnormal x-ray MQ: XC2_6 EXAM DATE/TIME: 06/19/2021 11:18 AM COMPARISON: No relevant prior studies available. RESULT: Lines, tubes, and devices: None. Lungs and pleura: Bilateral apical scarring. No consolidation. No lung mass. No pleural effusion. No pneumothorax. Cardiomediastinal silhouette: Normal cardiomediastinal silhouette. Bones and soft tissues: Unremarkable. DIVISION OF RADIOLOGY Provider, [facility] - 06/19/2021 * * *Final Report* * * DATE OF EXAM: Jun 19 2021 11:18AM WOX 5291 - XR CHEST 2V FRONTAL/LAT / PROCEDURE REASON: Abnormal x-ray * * * * Physician Interpretation * * * * EXAMINATION: CHEST RADIOGRAPH (2 VIEW FRONTAL & LATERAL) CLINICAL HISTORY: Abnormal x-ray MQ: XC2_6 EXAM DATE/TIME: 06/19/2021 11:18 AM COMPARISON: No relevant prior studies available. RESULT: Lines, tubes, and devices: None. Lungs and pleura: Bilateral apical scarring. No consolidation. No lung mass. No pleural effusion. No pneumothorax. Cardiomediastinal silhouette: Normal cardiomediastinal silhouette. Bones and soft tissues: Unremarkable. IMPRESSION IMPRESSION: No acute radiographic abnormality. Customer Care Voice Consultant: JESS Transcribe Date/Time: Jun 19 2021 11:45A Dictated by : DIONE DAVIS MD This examination was interpreted and the report reviewed and electronically signed by: DIONE DAVIS MD on Jun 19 2021 11:45AM EST [facility] Radiology Study observation (narrative) [facility] XR Chest PA and LateralOrder ed By: Ccf Provider on 06-19-2021 [facility] XR Shoulder - right 3 ViewsO rdered By: Ccf Provider on 06-18-2021 Interpretation and review of laboratory results Abnormal [facility] Radiology Result ACTIONABLE Abnormal [facility] Comment on above: This report contains an incidental or actionable finding. This is a new finding that is separate from the reason your provider ordered the imaging test. Because of this incidental or actionable finding, you may need another imaging test to evaluate it. Please contact your provider for the next steps. [facility] XR Shoulder - right 3 Viewso n 06-18-2021 IMPRESSION: 1. No radiographic evidence of acute osseous abnormality. 2. Mild reticular opacities in the visualized right midlung zone. Further evaluation with dedicated chest x-ray is advised. ACTIONABLE RESULT: FOLLOW-UP Acuity: Actionable Findings: Thoracic-Other Routing Code: CT_1 Recommendation: XR Chest 2 view Time Frame: At the discretion of the clinical team. COMMUNICATION: Results will be communicated with the ordering provider via [employer] staff message or phone message by Imaging Support Services within 2 business days of report finalization. Algorithms for management of incidental imaging findings can be found on the [facility] Intranet Sharepoint site at: [email or web address] [email or web address] [email or web address] ngs%[email or web address]/Fo hang/[email or web address] Customer Care Voice Consultant: JESS Transcribe Date/Time: Jun 18 2021 12:35P Dictated by : PIOTR GREENFIELD MD This examination was interpreted and the report reviewed and electronically signed by: PIOTR GREENFIELD MD on Jun 18 2021 12:36PM [facility] DIVISION OF RADIOLOGY * * *Final Report* * * DATE OF EXAM: Jun 18 2021 12:13PM WOX 5253 - XR SHLDR >/=3V AP/JEFFRY AP/OTHR RT / PROCEDURE REASON: multiple diagnoses * * * * Physician Interpretation * * * * CLINICAL INDICATION: Shoulder pain TECHNIQUE: 3 view radiographic study of the right shoulder COMPARISON: None FINDINGS: No acute fracture or dislocation identified. Acromioclavicular joint intact. No soft tissue calcifications. Mild reticular opacities in the right midlung zone. DIVISION OF RADIOLOGY Provider, [facility] - 06/18/2021 * * *Final Report* * * DATE OF EXAM: Jun 18 2021 12:13PM WOX 5253 - XR SHLDR >/=3V AP/JEFFRY AP/OTHR RT / PROCEDURE REASON: multiple diagnoses * * * * Physician Interpretation * * * * CLINICAL INDICATION: Shoulder pain TECHNIQUE: 3 view radiographic study of the right shoulder COMPARISON: None FINDINGS: No acute fracture or dislocation identified. Acromioclavicular joint intact. No soft tissue calcifications. Mild reticular opacities in the right midlung zone. IMPRESSION IMPRESSION: 1. No radiographic evidence of acute osseous abnormality. 2. Mild reticular opacities in the visualized right midlung zone. Further evaluation with dedicated chest x-ray is advised. ACTIONABLE RESULT: FOLLOW-UP Acuity: Actionable Findings: Thoracic-Other Routing Code: CT_1 Recommendation: XR Chest 2 view Time Frame: At the discretion of the clinical team. COMMUNICATION: Results will be communicated with the ordering provider via [employer] staff message or phone message by [employer] within 2 business days of report finalization. Algorithms for management of incidental imaging findings can be found on the [facility] Intranet Sharepoint site at: [email or web address] [email or web address] ntal%20Findi ngs%20at%20Imaging/Fo hang/[email or web address] Customer Care Voice Consultant: PSCB Transcribe Date/Time: Jun 18 2021 12:35P Dictated by : PIOTR GREENFIELD MD This examination was interpreted and the report reviewed and electronically signed by: PIOTR GREENFIELD MD on Jun 18 2021 12:36PM EST [facility] Radiology Study observation (narrative) [facility] No Panel Informationon 03-18 Radiology Study observation (narrative) [facility] XR Lumbar spine 3 Viewson IMPRESSION: Spondylosis and curvature of the lumbar spine. Customer Care Voice Consultant: [email or web address] Transcribe Date/Time: Mar 18 2021 4:46P Dictated by : ALEJANDRO CANO MD This examination was interpreted and the report reviewed and electronically signed by: ALEJANDRO CANO MD on Mar 18 2021 4:47PM EST DIVISION OF RADIOLOGY * * *Final Report* * * DATE OF EXAM: Mar 18 2021 4:36PM WOX 5228 - XR LUMBAR 3V AP/LAT/L5-S1 / PROCEDURE REASON: multiple diagnoses * * * * Physician Interpretation * * * * Lumbar spine radiographs HISTORY: 70 years old Clinical information: Osteopenia, unspecified location DDD (degenerative disc disease), lumbar Chronic right-sided low back pain without sciatica Chronic right-sided low back pain without sciatica Chronic lower back pain that radiates to the right SI joint without injury TECHNIQUE: Images: XR LUMBAR 3V AP/LAT/L5-S1 Comparison: April 02, 2018. RESULT: Findings: Right-sided convex curvature of the lumbar spine. Intervertebral disc space narrowing and endplate osteophyte formation multiple levels in the lumbar spine. No fracture. SI joints are intact. Paraspinous soft tissues are unremarkable in appearance. DIVISION OF RADIOLOGY Provider, [facility] - 03/18/2021 * * *Final Report* * * DATE OF EXAM: Mar 18 2021 4:36PM WOX 5228 - XR LUMBAR 3V AP/LAT/L5-S1 / PROCEDURE REASON: multiple diagnoses * * * * Physician Interpretation * * * * Lumbar spine radiographs HISTORY: 70 years old Clinical information: Osteopenia, unspecified location DDD (degenerative disc disease), lumbar Chronic right-sided low back pain without sciatica Chronic right-sided low back pain without sciatica Chronic lower back pain that radiates to the right SI joint without injury TECHNIQUE: Images: XR LUMBAR 3V AP/LAT/L5-S1 Comparison: April 02, 2018. RESULT: Findings: Right-sided convex curvature of the lumbar spine. Intervertebral disc space narrowing and endplate osteophyte formation multiple levels in the lumbar spine. No fracture. SI joints are intact. Paraspinous soft tissues are unremarkable in appearance. IMPRESSION IMPRESSION: Spondylosis and curvature of the lumbar spine. Customer Care Voice Consultant: [facility] Transcribe Date/Time: Mar 18 2021 4:46P Dictated by : ALEJANDRO CANO MD This examination was interpreted and the report reviewed and electronically signed by: ALEJANDRO CANO MD on Mar 18 2021 4:47PM EST [facility] XR Lumbar spine 3 ViewsOrder ed By: [facility] Provider on 03-18-2021 [facility] XR Sacroiliac Joint Viewson 03-18-2021 IMPRESSION: No radiographic evidence of sacroiliitis Customer Care Voice Consultant: [facility] Transcribe Date/Time: Mar 18 2021 4:50P Dictated by : PIOTR GREENFIELD MD This examination was interpreted and the report reviewed and electronically signed by: PIOTR GREENFIELD MD on Mar 18 2021 4:51PM EST DIVISION OF RADIOLOGY * * *Final Report* * * DATE OF EXAM: Mar 18 2021 4:36PM WOX 5245 - XR SI JTS 2V AP PELV/LU / PROCEDURE REASON: multiple diagnoses * * * * Physician Interpretation * * * * CLINICAL INDICATION: Pain TECHNIQUE: Two-view radiographic study of the sacroiliac joints COMPARISON: None FINDINGS: Bilateral sacroiliac joints appear grossly intact. Visualized sacral arcs preserved noting evaluation of the lower sacrum limited due to overlying obscuring bowel gas and stool. DIVISION OF RADIOLOGY Provider, [facility] - 03/18/2021 * * *Final Report* * * DATE OF EXAM: Mar 18 2021 4:36PM WOX 5245 - XR SI JTS 2V AP PELV/LU / PROCEDURE REASON: multiple diagnoses * * * * Physician Interpretation * * * * CLINICAL INDICATION: Pain TECHNIQUE: Two-view radiographic study of the sacroiliac joints COMPARISON: None FINDINGS: Bilateral sacroiliac joints appear grossly intact. Visualized sacral arcs preserved noting evaluation of the lower sacrum limited due to overlying obscuring bowel gas and stool. IMPRESSION IMPRESSION: No radiographic evidence of sacroiliitis Customer Care Voice Consultant: JESS Transcribe Date/Time: Mar 18 2021 4:50P Dictated by : PIOTR GREENFIELD MD This examination was interpreted and the report reviewed and electronically signed by: PIOTR GREENFIELD MD on Mar 18 2021 4:51PM [facility] Vital Signs Date Time Vital Sign Value Performing Clinician Jean becerril 11-08-2024 15:10-0400 Body temperature 97.6 [degF] CHRISTINA [facility] LITIGATION SUPPORT ANALYST-C Work Phone: [facility] 11-08-2024 15:10-0400 Diastolic blood pressure 70 mm[Hg] [facility] LITIGATION SUPPORT ANALYST-C Work Phone: [facility] 11-08-2024 15:10-0400 Heart rate 71 /min [facility] LITIGATION SUPPORT ANALYST-C Work Phone: [facility] 11-08-2024 15:10-0400 Respiratory rate 16 /min [facility] LITIGATION SUPPORT ANALYST-C Work Phone: [facility] 11-08-2024 15:10-0400 SaO2% (BldA) [Mass fraction] 100 % [facility] LITIGATION SUPPORT ANALYST-C Work Phone: [facility] 11-08-2024 15:10-0400 Systolic blood pressure 124 mm[Hg] [facility] LITIGATION SUPPORT ANALYST-C Work Phone: [facility] 11-08-2024 13:42-0400 Body height 152.4 cm [facility] LITIGATION SUPPORT ANALYST-C Work Phone: [facility] 11-08-2024 13:42-0400 Body mass index (BMI) [Ratio] 20.5 kg/m2 [facility] LITIGATION SUPPORT ANALYST-C Work Phone: [facility] 11-08-2024 13:42-0400 Body weight 47.6 kg [facility] LITIGATION SUPPORT ANALYST-C Work Phone: [facility] 11-08-2024 08:20-0400 Body mass index (BMI) [Ratio] 19.65 kg/m2 Dung Holman FUR FARMER.PLY BANDER Work Phone: [facility] 11-08-2024 08:20-0400 Body weight 47.17 kg Dung Holman FUR FARMER.PLY BANDER Work Phone: [facility] 11-08-2024 08:20-0400 Diastolic blood pressure 84 mm[Hg] Dung Holman FUR FARMER.PLY BANDER Work Phone: [facility] 11-08-2024 08:20-0400 Heart rate 90 /min Dung Holman FUR FARMER.PLY BANDER Work Phone: [facility] 11-08-2024 08:20-0400 Systolic blood pressure 145 mm[Hg] Dung Holman FUR FARMER.PLY BANDER Work Phone: [facility] 10-24-2024 08:35-0400 Body height 152.4 cm CHRISTINA OLDER LITIGATION SUPPORT ANALYST-C Work Phone: [facility] 10-24-2024 08:35-0400 Body mass index (BMI) [Ratio] 20.6 kg/m2 CHRISTINA OLDER LITIGATION SUPPORT ANALYST-C Work Phone: [facility] 10-24-2024 08:35-0400 Body weight 47.85 kg CHRISTINA OLDER LITIGATION SUPPORT ANALYST-C Work Phone: [facility] 10-24-2024 08:35-0400 Diastolic blood pressure 84 mm[Hg] CHRISTINA OLDER LITIGATION SUPPORT ANALYST-C Work Phone: [facility] 10-24-2024 08:35-0400 Heart rate 70 /min CHRISTINA OLDER LITIGATION SUPPORT ANALYST-C Work Phone: [facility] 10-24-2024 08:35-0400 Respiratory rate 16 /min CHRISTINA OLDER LITIGATION SUPPORT ANALYST-C Work Phone: [facility] 10-24-2024 08:35-0400 SaO2% (BldA) [Mass fraction] 97 % CHRISTINA OLDER LITIGATION SUPPORT ANALYST-C Work Phone: [facility] 10-24-2024 08:35-0400 Systolic blood pressure 153 mm[Hg] CHRISTINA OLDER LITIGATION SUPPORT ANALYST-C Work Phone: [facility] 09-13-2024 08:32-0400 Body height 152.4 cm CHRISTINA OLDER LITIGATION SUPPORT ANALYST-C Work Phone: [facility] 09-13-2024 08:32-0400 Body mass index (BMI) [Ratio] 20.9 kg/m2 CHRISTINA OLDER LITIGATION SUPPORT ANALYST-C Work Phone: [facility] 09-13-2024 08:32-0400 Body weight 48.53 kg CHRISTINA OLDER LITIGATION SUPPORT ANALYST-C Work Phone: [facility] 09-13-2024 08:32-0400 Diastolic blood pressure 85 mm[Hg] CHRISTINA OLDER LITIGATION SUPPORT ANALYST-C Work Phone: [phone] [place] [address] 09-13-2024 08:32-0400 Heart rate 75 /min CHRISTINA OLDER LITIGATION SUPPORT ANALYST-C Work Phone: [facility] 09-13-2024 08:32-0400 Respiratory rate 16 /min CHRISTINA OLDER LITIGATION SUPPORT ANALYST-C Work Phone: [facility] 09-13-2024 08:32-0400 SaO2% (BldA) [Mass fraction] 96 % CHRISTINA OLDER LITIGATION SUPPORT ANALYST-C Work Phone: [facility] 09-13-2024 08:32-0400 Systolic blood pressure 136 mm[Hg] CHRISTINA OLDER LITIGATION SUPPORT ANALYST-C Work Phone: [facility] 07-04-2024 13:06-0500 Body mass index (BMI) [Ratio] 20.7 kg/m2 CHRISTINA OLDER LITIGATION SUPPORT ANALYST-C Work Phone: [facility] 07-04-2024 13:06-0500 Body weight 48.19 kg CHRISTINA OLDER LITIGATION SUPPORT ANALYST-C Work Phone: [facility] 07-04-2024 13:06-0500 Diastolic blood pressure 90 mm[Hg] CHRISTINA OLDER LITIGATION SUPPORT ANALYST-C Work Phone: [facility] 07-04-2024 13:06-0500 Respiratory rate 18 /min CHRISTINA OLDER LITIGATION SUPPORT ANALYST-C Work Phone: [facility] 07-04-2024 13:06-0500 SaO2% (BldA) [Mass fraction] 96 % CHRISTINA OLDER LITIGATION SUPPORT ANALYST-C Work Phone: [facility] 07-04-2024 13:06-0500 Systolic blood pressure 142 mm[Hg] CHRISTINA OLDER LITIGATION SUPPORT ANALYST-C Work Phone: [facility] 03-31-2024 07:16-0500 Body mass index (BMI) [Ratio] 19.65 kg/m2 Christina Older FUR FARMER.PLY BANDER Work Phone: [facility] 03-31-2024 07:16-0500 Body weight 47.17 kg Christina Older FUR FARMER.PLY BANDER Work Phone: [facility] 03-31-2024 07:16-0500 Respiratory rate 16 /min Christina Older FUR FARMER.PLY BANDER Work Phone: [facility] 02-22-2024 13:41-0400 Diastolic blood pressure 72 mm[Hg] Michael Manzanares MD Work Phone: [facility] 02-22-2024 13:41-0400 Systolic blood pressure 132 mm[Hg] Michael Manzanares MD Work Phone: [facility] 02-05-2024 11:36-0400 Body height 154.9 cm Michael Manzanares MD Work Phone: [facility] 02-05-2024 11:36-0400 Body mass index (BMI) [Ratio] 18.89 kg/m2 Michael Manzanares MD Work Phone: [facility] 02-05-2024 11:36-0400 Body weight 45.36 kg Michael Manzanares MD Work Phone: [facility] 02-05-2024 11:36-0400 Diastolic blood pressure 82 mm[Hg] Michael Manzanares MD Work Phone: [facility] 02-05-2024 11:36-0400 Systolic blood pressure 130 mm[Hg] Michael Manzanares MD Work Phone: [facility] 12-02-2023 10:25-0400 Diastolic blood pressure 84 mm[Hg] Michael Manzanares MD Work Phone: [facility] 12-02-2023 10:25-0400 Heart rate 87 /min Michael Manzanares MD Work Phone: [facility] 12-02-2023 10:25-0400 Systolic blood pressure 134 mm[Hg] Michael Manzanares MD Work Phone: [facility] 10-30-2023 09:53-0400 Diastolic blood pressure 70 mm[Hg] [place]ro [place]ond Work Phone: [facility] 10-30-2023 09:53-0400 Systolic blood pressure 128 mm[Hg] Uro Pond Work Phone: [facility] 10-16-2023 13:03-0400 Body height 153.7 cm Pacc 1 Work Phone: [facility] 10-16-2023 13:03-0400 Body mass index (BMI) [Ratio] 19.59 kg/m2 Pacc 1 Work Phone: [facility] 10-16-2023 13:03-0400 Body temperature 98.4 [degF] Pacc 1 Work Phone: [facility] 10-16-2023 13:03-0400 Body weight 46.27 kg Pacc 1 Work Phone: [facility] 10-16-2023 13:03-0400 Diastolic blood pressure 88 mm[Hg] Pacc 1 Work Phone: [facility] 10-16-2023 13:03-0400 Heart rate 85 /min Pacc 1 Work Phone: [facility] 10-16-2023 13:03-0400 Respiratory rate 14 /min Pacc 1 Work Phone: [facility] 10-16-2023 13:03-0400 SaO2% (BldA) [Mass fraction] 98 % Pacc 1 Work Phone: [facility] 10-16-2023 13:03-0400 Systolic blood pressure 136 mm[Hg] Pacc 1 Work Phone: [facility] 09-28-2023 07:29-0400 Body height 154.9 cm Christina Older FUR FARMER.PLY BANDER Work Phone: [facility] 09-28-2023 07:29-0400 Body mass index (BMI) [Ratio] 19.46 kg/m2 Christina Older FUR FARMER.PLY BANDER Work Phone: [facility] 09-28-2023 07:29-0400 Body weight 46.72 kg Christina Older FUR FARMER.PLY BANDER Work Phone: [facility] 09-28-2023 07:29-0400 Diastolic blood pressure 72 mm[Hg] Christina Older FUR FARMER.PLY BANDER Work Phone: [facility] 09-28-2023 07:29-0400 Heart rate 88 /min Christina Older FUR FARMER.PLY BANDER Work Phone: [facility] 09-28-2023 07:29-0400 Respiratory rate 12 /min Christina Older FUR FARMER.PLY BANDER Work Phone: [facility] 09-28-2023 07:29-0400 SaO2% (BldA) [Mass fraction] 95 % Christina Older FUR FARMER.PLY BANDER Work Phone: [facility] 09-28-2023 07:29-0400 Systolic blood pressure 130 mm[Hg] Christina Older FUR FARMER.PLY BANDER Work Phone: [facility] 08-06-2023 14:32-0400 Body height 152.4 cm LITIGATION SUPPORT ANALYST-C CHRISTINA OLDER Work Phone: [facility] 08-06-2023 14:32-0400 Body mass index (BMI) [Ratio] 21.2 kg/m2 LITIGATION SUPPORT ANALYST-C CHRISTINA OLDER Work Phone: [facility] 08-06-2023 14:32-0400 Body weight 49.44 kg LITIGATION SUPPORT ANALYST-C CHRISTINA OLDER Work Phone: [facility] 07-29-2023 08:07-0400 Body weight 47.6 kg Michael Manzanares MD Work Phone: [facility] 07-29-2023 08:07-0400 Diastolic blood pressure 78 mm[Hg] Michael Manzanares MD Work Phone: [facility] 07-29-2023 08:07-0400 Heart rate 87 /min Michael Manzanares MD Work Phone: [facility] 07-29-2023 08:07-0400 Systolic blood pressure 131 mm[Hg] Michale Manzanares MD Work Phone: [facility] 04-16-2023 09:24-0500 Body weight 46.54 kg Marcelina Madrigal MD Work Phone: [facility] 04-16-2023 09:24-0500 Diastolic blood pressure 80 mm[Hg] Marcelina Madrigal MD Work Phone: [facility] 04-16-2023 09:24-0500 Systolic blood pressure 138 mm[Hg] Marcelina Madrigal MD Work Phone: [facility] 03-05-2023 07:56-0400 Body weight 47.17 kg Christina Older FUR FARMER.PLY BANDER Work Phone: [facility] 03-05-2023 07:56-0400 Diastolic blood pressure 74 mm[Hg] Christina Older FUR FARMER.PLY BANDER Work Phone: [facility] 03-05-2023 07:56-0400 Heart rate 64 /min Christina Older FUR FARMER.PLY BANDER Work Phone: [facility] 03-05-2023 07:56-0400 Respiratory rate 16 /min Christina Older FUR FARMER.PLY BANDER Work Phone: [facility] 03-05-2023 07:56-0400 SaO2% (BldA) [Mass fraction] 97 % Christina Martin APRN.PLY BANDER Work Phone: [facility] 03-05-2023 07:56-0400 Systolic blood pressure 116 mm[Hg] Christina Martin APRN.PLY BANDER Work Phone: [facility] 07-11-2022 13:00-0500 Body temperature 98.1 [degF] Marlen Madrigal APRN.PLY BANDER Work Phone: [facility] 07-11-2022 13:00-0500 Body weight 46.09 kg Marlen Madrigal APRN.PLY BANDER Work Phone: [facility] 07-11-2022 13:00-0500 Diastolic blood pressure 88 mm[Hg] Marlen Madrigal APRN.PLY BANDER Work Phone: [facility] 07-11-2022 13:00-0500 Heart rate 97 /min Marlen Madrigal APRN.PLY BANDER Work Phone: [facility] 07-11-2022 13:00-0500 Respiratory rate 18 /min Marlen Madrigal APRN.PLY BANDER Work Phone: [facility] 07-11-2022 13:00-0500 SaO2% (BldA) [Mass fraction] 97 % Marlen Madrigal APRN.PLY BANDER Work Phone: [facility] 07-11-2022 13:00-0500 Systolic blood pressure 128 mm[Hg] Marlen Madrigal APRN.PLY BANDER Work Phone: [facility] 04-28-2022 10:47-0500 Body temperature 99 [degF] Jerrell Sarmiento MD Work Phone: [facility] 04-28-2022 10:47-0500 Body weight 44.63 kg Jerrell Sarmiento MD Work Phone: [facility] 04-28-2022 10:47-0500 Diastolic blood pressure 80 mm[Hg] Jerrell Sarmiento MD Work Phone: [facility] 04-28-2022 10:47-0500 Heart rate 82 /min Jerrell Sarmiento MD Work Phone: [facility] 04-28-2022 10:47-0500 Respiratory rate 16 /min Jerrell Sarmiento MD Work Phone: [facility] 04-28-2022 10:47-0500 SaO2% (BldA) [Mass fraction] 96 % Jerrell Sarmiento MD Work Phone: [facility] 04-28-2022 10:47-0500 Systolic blood pressure 122 mm[Hg] Jerrell Sarmiento MD Work Phone: [facility] 04-24-2022 09:04-0500 Body height 152.4 cm No Primary Care Physician [facility] 04-23-2022 10:24-0500 Body temperature 98 [degF] No Primary Care Physician [facility] 04-23-2022 10:24-0500 Diastolic blood pressure 64 mm[Hg] No Primary Care Physician [facility] 04-23-2022 10:24-0500 Heart rate 93 /min No Primary Care Physician [facility] 04-23-2022 10:24-0500 Respiratory rate 18 /min No Primary Care Physician [facility] 04-23-2022 10:24-0500 SaO2% (BldA) [Mass fraction] 94 % No Primary Care Physician [facility] 04-23-2022 10:24-0500 Systolic blood pressure 130 mm[Hg] No Primary Care Physician [facility] 04-23-2022 06:18-0500 Body height 152.4 cm No Primary Care Physician [facility] Work Phone: 04-23-2022 06:18-0500 Body mass index (BMI) [Ratio] 19.3 kg/m2 No Primary Care Physician [facility] 04-23-2022 06:18-0500 Body weight 44.9 kg No Primary Care Physician [facility] 04-20-2022 11:11-0500 Diastolic blood pressure 80 mm[Hg] No Primary Care Physician [facility] 04-20-2022 11:11-0500 Heart rate 70 /min No Primary Care Physician [facility] 04-20-2022 11:11-0500 Respiratory rate 16 /min No Primary Care Physician [facility] 04-20-2022 11:11-0500 SaO2% (BldA) [Mass fraction] 98 % No Primary Care Physician [facility] 04-20-2022 11:11-0500 Systolic blood pressure 130 mm[Hg] No Primary Care Physician [facility] 04-20-2022 09:06-0500 Body height 154.94 cm No Primary Care Physician [facility] Work Phone: 04-20-2022 09:06-0500 Body mass index (BMI) [Ratio] 20 kg/m2 No Primary Care Physician [facility] 04-20-2022 09:06-0500 Body temperature 97 [degF] No Primary Care Physician [facility] 04-20-2022 09:06-0500 Body weight 48 kg No Primary Care Physician [facility] 02-06-2022 09:24-0400 Body height 152.4 cm Tanya Dobson APRN.PLY BANDER Work Phone: [facility] 02-06-2022 09:24-0400 Body weight 46.27 kg Tanya Dobson APRN.PLY BANDER Work Phone: [facility] 02-06-2022 09:24-0400 Diastolic blood pressure 82 mm[Hg] Tanya Dobson APRN.PLY BANDER Work Phone: [facility] 02-06-2022 09:24-0400 Respiratory rate 14 /min Tanya Dobson APRN.PLY BANDER Work Phone: [facility] 02-06-2022 09:24-0400 Systolic blood pressure 126 mm[Hg] Tanya Dobson APRN.PLY BANDER Work Phone: [facility] 12-19-2021 10:08-0400 Body height 154.94 cm No Primary Care Physician [facility] Work Phone: 12-19-2021 10:08-0400 Body mass index (BMI) [Ratio] 19.3 kg/m2 No Primary Care Physician [facility] Work Phone: 12-19-2021 10:08-0400 Body weight 46.43 kg No Primary Care Physician [facility] Work Phone: Encounters Encounter Date Encounter Type Care Provider Facility Start: 11-08-2024 Non-patient / Non-visit Dhiraj Dowd nd DO -[facility] Start: 11-08-2024 End: 11-08-2024 Admission to same day surgery center Dhiraj King DO -Endoscopy Work Phone: Start: 11-08-2024 End: 11-08-2024 ambulatory CHRISTINA MARTIN LITIGATION SUPPORT ANALYST-C Work Phone: [facility] Work Phone: Start: 11-08-2024 End: 11-08-2024 Patient encounter procedure Dung Holman APRN.PLY BANDER Work Phone: URO/Gynecology Comment on above: Post-operative state (Primary Dx); JEMIMA (stress urinary incontinence, female); Vaginal atrophy; Vaginal adhesions, postprocedural Start: 11-08-2024 End: 11-08-2024 ambulatory DUNG HOLMAN Facility:[facility] Start: 10-24-2024 End: 10-24-2024 Patient encounter procedure Melba WORLEYC -[facility] Work Phone: Start: 10-24-2024 End: 10-24-2024 ambulatory CHRISTINA MARTIN LITIGATION SUPPORT ANALYST-C Work Phone: [facility] Work Phone: Start: 10-14-2024 End: 10-14-2024 ambulatory CHRISTINA MARTIN LITIGATION SUPPORT ANALYST-C Work Phone: [facility] Work Phone: Start: 10-14-2024 End: 10-14-2024 Patient encounter procedure Melba WORLEYC -[facility] Work Phone: Start: 10-14-2024 End: 10-14-2024 ambulatory Melba Pinon Facility:[facility] Start: 09-13-2024 End: 09-13-2024 Patient encounter procedure Melba WORLEYC -[facility] Work Phone: Start: 09-13-2024 End: 09-13-2024 ambulatory Melbayolis Pinon Facility:[facility] Start: 07-04-2024 End: 07-04-2024 Patient encounter procedure Melba MCGILL -[facility] Work Phone: Start: 07-04-2024 End: 07-04-2024 ambulatory Melbayolis Pinon Facility:[facility] Start: 06-01-2024 ambulatory CHRISTINA MARTIN Facility:[facility] Start: 06-01-2024 End: 06-01-2024 ambulatory [facility] Facility:[facility] Start: 05-03-2024 End: 05-03-2024 [facility] Facility:[facility] Start: 04-12-2024 Encounter for preprocedural laboratory examination Buddy Jnoeselizabeth [facility] Start: 03-31-2024 End: 03-31-2024 [facility] [facility] Start: 03-31-2024 End: 03-31-2024 ambulatory [facility] Facility:[facility] Start: 03-31-2024 End: 03-31-2024 Patient encounter procedure Christina [facility] FUR FARMER.PLY BANDER Work Phone: Internal Medicine [place] Comment on above: Elevated blood press ure reading (Primary Dx); Genitourinary syndrome of menopause Start: 03-23-2024 End: 03-23-2024 Telephone encounter Michael Manzanares MD Work Phone: URO/Gynecology Comment on above: Care Coordination (B ulkamid Follow-Up) Start: 03-21-2024 End: 03-21-2024 ambulatory [facility] Facility:[facility] Start: 03-08-2024 End: 03-08-2024 ambulatory [facility] Facility:[facility] Start: 03-08-2024 End: 03-08-2024 Subsequent hospital visit by physician Screen Mammo [facility] Comment on above: Encounter for screen ing mammogram for breast cancer [Z12.31] Start: 02-22-2024 End: 02-22-2024 ambulatory MICHAEL MANZANARES Facility:[facility] Start: 02-22-2024 End: 02-22-2024 Patient encounter procedure Michael Manzanares MD Work Phone: URO/Gynecology Comment on above: Intrinsic sphincter deficiency (ISD) (Primary Dx); JEMIMA (stress urinary incontinence, female) Start: 02-05-2024 End: 02-05-2024 Telephone encounter Michael Manzanares MD Work Phone: URO/Gynecology Comment on above: Care Coordination (Morena parker) Start: 02-05-2024 End: 02-05-2024 ambulatory [facility] Facility:[facility] Start: 02-05-2024 End: 02-05-2024 Patient encounter procedure Michael Manzanares MD Work Phone: URO/Gynecology Comment on above: JEMIMA (stress urinary incontinence, female) (Primary Dx); Cystocele, midline; Rectocele Start: 01-28-2024 End: 01-28-2024 Refill Murphy Cuevas MD Work Phone: Internal Medicine [place] Comment on above: Refill Request Start: 12-02-2023 End: 12-02-2023 [facility] Facility:[facility] Start: 12-02-2023 End: 12-02-2023 Patient encounter procedure Michael Manzanares MD Work Phone: [facility] Comment on above: Mixed stress and urg e urinary incontinence (Primary Dx); Uterovaginal prolapse, incomplete; Cystocele, midline Start: 10-30-2023 End: 10-30-2023 Patient encounter procedure [employer] 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 Computer 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 Nurse Calderon Dotson Work Phone: URO/Gynecology Comment on above: Encounter for urine test (Primary Dx) Start: 10-30-2023 End: 10-30-2023 Patient encounter status [place] [place] Work Phone: [facility] Start: 10-27-2023 End: 10-27-2023 [facility] Facility:[facility] Start: 10-16-2023 End: 10-16-2023 [facility] [place] 1 Work Phone: Pre Anesthesia Comment on above: Pre-operative examin ation (Primary Dx); Chronic left-sided low back pain without sciatica; Uterovaginal prolapse, incomplete; Cystocele, midline; Rectocele; Osteoporosis, unspecified osteoporosis type, unspecified pathological fracture presence; Solitary pulmonary nodule; Hx of seizure disorder Start: 10-16-2023 End: 10-16-2023 Preprocedural examination done [facility] 1 Work Phone: [facility] Work Phone: Start: 10-13-2023 End: 10-13-2023 ambulatory [employer] Publisher Nurse Gary Work Phone: [facility] Comment on above: Educational circumst ance (Primary Dx) Start: 10-13-2023 End: 10-13-2023 Telemedicine consultation with patient [employer] Publisher Nurse Gary Work Phone: [facility] Start: 10-01-2023 End: 10-01-2023 Subsequent hospital visit by physician Bone Density [facility] Work Phone: Radiology Comment on above: Encounter for screen ing for osteoporosis [Z13.820] Start: 09-28-2023 Telephone encounter Zachary dunaway MD Work Phone: URO/Gynecology Start: 09-28-2023 End: 09-28-2023 Patient encounter procedure Christina Martin APRN.CNP Work Phone: Internal Medicine [place] Comment on above: Osteopenia, unspecif ied location (Primary Dx); Encounter for screening for osteoporosis; Asymptomatic postmenopausal status; Annual physical exam Start: 08-28-2023 End: 08-28-2023 ambulatory LITIGATION SUPPORT ANALYST-C CHRISTINA MARTIN Work Phone: [facility] Work Phone: Start: 08-28-2023 End: 08-28-2023 Patient encounter procedure LITIGATION SUPPORT ANALYSTElviaC CHRISTINA MARTIN Work Phone: [facility]-Ultrasound, [facility] Work Phone: Start: 08-24-2023 Telephone encounter Michael Manzanares MD Work Phone: [facility] Comment on above: Returning Patient's Call Start: 08-06-2023 End: 08-06-2023 Patient encounter procedure LITIGATION SUPPORT ANALYST-C CHRISTINA MARTIN Work Phone: [facility] Work Phone: Start: 08-06-2023 Telephone encounter Michael Manzanares MD Work Phone: [facility] Comment on above: Schedule Surgery Start: 08-03-2023 End: 08-03-2023 ambulatory LITIGATION SUPPORT ANALYST-C CHRISTINA TALYA Work Phone: [facility] Work Phone: Start: 08-03-2023 End: 08-03-2023 Patient encounter procedure LITIGATION SUPPORT ANALYST-C CHRISTINA MARTIN Work Phone: [facility], [facility] Work Phone: Start: 07-30-2023 End: 07-30-2023 Patient encounter procedure LITIGATION SUPPORT ANALYST-C CHRISTINA MARTIN Work Phone: [facility] Work Phone: Start: 07-29-2023 End: 07-29-2023 Patient encounter procedure Michael Manzanares MD Work Phone: [facility] Comment on above: Cystocele, midline ( Primary Dx); Mixed stress and urge urinary incontinence; Vaginal atrophy; Uterovaginal prolapse, incomplete; Rectocele; Preop examination Start: 07-29-2023 End: 07-29-2023 Preprocedural examination done Michael Manzanares MD Work Phone: [facility] Work Phone: Start: 06-18-2023 End: 06-18-2023 ambulatory [facility] Work Phone: Start: 06-18-2023 End: 06-18-2023 Patient encounter procedure [facility]-Cat Scan, [facility] Work Phone: Start: 06-01-2023 End: 06-01-2023 ambulatory [facility] Work Phone: Start: 06-01-2023 End: 06-01-2023 Patient encounter procedure [facility]-Laboratory, Specimen Work Phone: Start: 05-07-2023 ambulatory Kristen gilbert APRN.CNP Work Phone: Gastroenterology Start: 04-16-2023 End: 04-16-2023 Patient encounter procedure Marcelina Madrigal MD Work Phone: OB/Gynecology Comment on above: Cystocele, midline ( Primary Dx); Uterine prolapse Start: 03-17-2023 End: 03-17-2023 ambulatory [facility] Work Phone: Start: 03-17-2023 End: 03-17-2023 Patient encounter procedure [facility]-Cat Scan, H Work Phone: Start: 03-10-2023 Telephone encounter Christina Martin APRN.PLY BANDER Work Phone: Internal Medicine [place] Comment on above: Results Start: 03-09-2023 Documentation procedure Mammog jayne Coordinator [facility] Start: 03-09-2023 Letter encounter Mammography Coordinator [facility] Department Start: 03-06-2023 End: 03-06-2023 Subsequent hospital visit by physician Screen Mammo [facility] Comment on above: Encounter for screen ing mammogram for breast cancer [Z12.31] Start: 03-05-2023 End: 03-05-2023 Subsequent hospital visit by physician Xr [facility] Work Phone: Radiology Comment on above: Right foot pain [M79 .671] Start: 03-05-2023 End: 03-05-2023 Patient encounter procedure Christina Martin APRN.PLY BANDER Work Phone: Internal Medicine [place] Comment on above: Osteopenia, unspecif ied location (Primary Dx); Bladder pain; Toe pain, right; Right foot pain; Need for influenza vaccination Start: 03-04-2023 ambulatory Murphy Suggs Work Phone: Internal Medicine [facility] [place] Start: 09-01-2022 End: 09-01-2022 Subsequent hospital visit by physician Dax [facility] [place] Work Phone: Radiology Comment on above: Chronic right-sided low back pain without sciatica [M54.50, G89.29] Start: 07-11-2022 End: 07-11-2022 Patient encounter procedure Marlen Madrigal APRN.CNP Work Phone: [facility] Comment on above: Sore throat (Primary Dx) Start: 06-04-2022 End: 06-04-2022 ambulatory No Primary Care Physician [facility] Work Phone: Start: 06-04-2022 End: 06-04-2022 Discharged Recurring No Primary Care Physician [facility]-Physical Therapy Start: 06-03-2022 End: 06-03-2022 Patient encounter procedure No Primary Care Physician [facility] Start: 05-06-2022 End: 05-06-2022 Patient encounter procedure No Primary Care Physician [facility] Start: 04-28-2022 End: 04-28-2022 Patient encounter procedure Jerrell Sarmiento MD Work Phone: [facility] Comment on above: Acute non-recurrent sinusitis, unspecified location (Primary Dx) Start: 04-25-2022 End: 04-25-2022 Patient encounter procedure No Primary Care Physician [facility] Start: 04-23-2022 Non-patient / Non-visit No [facility] Care Physician [facility] Start: 04-23-2022 End: 04-23-2022 Admission to same day surgery center No Primary Care Physician [facility]-Surgical Day Care Start: 04-23-2022 End: 04-23-2022 ambulatory No Primary Care Physician [facility] Work Phone: Start: 04-20-2022 End: 04-20-2022 Emergency department patient visit No Primary Care Physician [facility]-Emergency Department Start: 03-03-2022 End: 03-03-2022 Patient encounter procedure No Primary Care Physician [facility] Start: 02-24-2022 End: 02-24-2022 ambulatory No Primary Care Physician [facility] Work Phone: Start: 02-24-2022 End: 02-24-2022 Patient encounter procedure No Primary Care Physician [facility] Start: 02-21-2022 End: 02-21-2022 Patient encounter procedure No Primary Care Physician [facility] Start: 02-06-2022 End: 02-06-2022 Patient encounter procedure Tanya Dobson APRN.PLY BANDER Work Phone: OB/Gynecology Comment on above: Encounter for routin e gynecologic examination in Medicare patient (Primary Dx); Urinary frequency; Cystocele, midline; Encounter for screening mammogram for breast cancer; Dense breast tissue Start: 02-06-2022 End: 02-06-2022 Patient encounter status Tanya Dobson APRN.PLY BANDER Work Phone: OB/Gynecology Start: 01-16-2022 Documentation procedure Mammog jayne Coordinator [facility] Start: 01-16-2022 Letter encounter Mammography Coordinator [facility] Department Start: 01-16-2022 End: 01-16-2022 Subsequent hospital visit by physician Screen Mammo [facility] Comment on above: Encounter for screen ing mammogram for breast cancer [Z12.31] Start: 12-19-2021 End: 12-19-2021 Patient encounter procedure No Primary Care Physician [facility] Start: 08-30-2021 Refill Murphy Suggs Work Phone: Internal Medicine [place] Comment on above: Refill Request Start: 06-19-2021 End: 06-19-2021 Subsequent [facility] visit by [facility] Work Phone: Radiology Comment on above: Abnormal x-ray [R93. 89] Start: 06-18-2021 End: 06-18-2021 Subsequent hospital visit by physician Dax [facility] Work Phone: Radiology Comment on above: ov Start: 03-18-2021 End: 03-18-2021 Subsequent hospital visit by physician Xr [facility] Work Phone: Radiology Comment on above: Osteopenia, unspecif ied location [M85.80] Procedures Date Procedure Procedure Detail Performing Clinician Start: 11-08-2024 Esophagogastroduodenoscopy CHRISTINA MARTIN LITIGATION SUPPORT ANALYST- C Work Phone: Start: 10-14-2024 Computed tomography of abdomen and pelvis with contrast CHRISTINA MARTIN LITIGATION SUPPORT ANALYST-C Work Phone: Start: 03-08-2024 Screening digital breast tomosynthesis bi Bulk Order Provider Start: 02-22-2024 Urnls dip stick/tablet rgnt auto w/o microscopy Michael Manzanares MD Work Phone: Start: 10-30-2023 Urnls dip stick/tablet rgnt auto w/o microscopy [facility] Provider Start: 10-27-2023 Antibody screen MICHAEL MANZANARES Comment on above: Order Comment: Specimen Type: BLOOD SPEC IMENOrdering Facility: [facility] Address: [address] [place] [address] Performed By: #### T SCR ####[facility] BLOOD BANKIA [id number] [place] [address] [place] Start: 09-28-2023 Adult depression screening assessment Murphy Cuevas MD Work Phone: Start: 09-28-2023 Lipid 1996 panel - Serum or Plasma Zachary Nguyen MD Work Phone: Start: 08-28-2023 Ultrasonography of limb LITIGATION SUPPORT ANALYST-C CHRISTINA TALYA Work Phone: Start: 08-03-2023 Other BP Soft Tissue LITIGATION SUPPORT ANALYST-C CHRISTINA MARTIN Work Phone: Start: 07-29-2023 Urnls dip stick/tablet rgnt auto w/o microscopy Michael Manzanares MD Work Phone: Start: 06-18-2023 CT of face Start: 06-01-2023 Investigation of transfusion reaction Start: 06-01-2023 Nasopharyngeal Culture Start: 03-17-2023 Computed tomography of abdomen and pelvis with contrast Start: 03-06-2023 Screening digital breast tomosynthesis bi Tanya Dobson FUR FARMER.PLY BANDER Work Phone: Start: 03-05-2023 Radex foot complete minimum 3 views Christina Martin FUR FARMER.PLY BANDER Work Phone: Start: 03-05-2023 INFLUENZA VACCINE, PRSV FREE, AGE 65+ YR, HIGH DOSE, QUADRIVALENT (FLUZONE HIGH-DOSE) Christina Martin FUR FARMER.PLY BANDER Work Phone: Start: 09-02-2022 Lipid 1996 panel - Serum or Plasma Christina ortega FUR FARMER.PLY BANDER Work Phone: Start: 09-01-2022 Radex spine lumbosacral 2/3 views Christina schultz FUR FARMER.PLY BANDER Work Phone: Start: 07-11-2022 STREP A MOLECULAR (POC) Marlen Madrigal FUR FARMER.PLY BANDER Work Phone: Start: 04-23-2022 Arthroscopy of knee No Primary Care Physician Start: 04-20-2022 CT of chest without contrast No Primary Care Physician Start: 02-24-2022 MRI of joint of lower extremity No Prima ry Care Physician Start: 02-06-2022 Urnls dip stick/tablet rgnt auto w/o microscopy Tanya Dobson FUR FARMER.PLY BANDER Work Phone: Start: 01-16-2022 TAYLOR SCREENING W AQUILES Tanya Dobson FUR FARMER.PLY BANDER Work Phone: Start: 01-16-2022 Mammography Screen [facility] Start: 12-19-2021 Radiologic examination of knee No Primar y Care Physician Start: 06-19-2021 Radiologic exam chest 2 views Alondra díaz FUR FARMER.PLY BANDER Work Phone: Start: 06-18-2021 Radex shoulder complete minimum 2 views Alondra Pelletier FUR FARMER.PLY BANDER Work Phone: Start: 03-18-2021 Radex spine lumbosacral 2/3 views Murphy Cuevas MD Work Phone: Start: 03-18-2021 Adult depression screening assessment Murphy Cuevas MD Work Phone: Start: 12-20-2020 Mammography Murphy Cuevas MD Work Phone: Start: 07-02-2018 Colonoscopy Murphy Cuevas MD Work Phone: Plan of Treatment Date Care Activity Detail Author Start: 09-27-2028 Lipid panel Lipid Screening [facility] Start: 07-02-2028 Colonoscopy COLONOSCOPY [facility] Start: 07-02-2028 COLORECTAL CANCER SCREENING COLORECTAL CANCER SCREENING [facility] Start: 07-02-2028 Screening for malignant neoplasm of colon [facility] Start: 09-03-2027 Lipid 1996 panel - Serum or Plasma Lipid Screening [facility] Start: 09-03-2027 Lipid panel Lipid Screening [facility] Start: 09-27-2026 Diabetes Screening Diabetes Screening [facility] Start: 06-18-2026 LIPID SCREEN LIPID SCREEN [facility] Start: 03-05-2026 Diabetes Screening Diabetes Screening [facility] Start: 09-30-2025 Screening for osteoporosis Bone Density Screening [facility] Start: 05-16-2025 End: 05-16-2025 Patient encounter procedure 05/16/2025 8:00 AM EST Office Visit URO/Gynecology [address] [place] [address] Dung Holman APRN.PLY BANDER [address] [place] [address] 6 month follow up URO/Gynecology Comment on above: 6 month follow up Start: 03-08-2025 Screening for malignant neoplasm of breast Mammogram Screening [facility] Start: 11-08-2024 Patient discharge [facility] Start: 10-24-2024 Patient referral [facility] Work Phone: Start: 10-17-2024 End: 10-17-2024 Patient encounter procedure 10/17/2024 9:00 AM EDT Office Visit URO/Gynecology [address] [place] [address] Michael Manzanares MD [address] [address] follow up URO/Gynecology Comment on above: follow up Start: 09-27-2024 Anxiety Screening Anxiety Screening [facility] Start: 09-27-2024 Covid-19 Vaccine () Covid-19 Vaccine () [facility] Comment on above: Postponed from 01/16/2023 (Declined at t his time) Start: 09-27-2024 Depression Screening Depression Screening [facility] Start: 09-27-2024 Urine microalbumin profile DTaP,Tdap,Td Vaccine (1 - Tdap) [facility] Comment on above: Postponed from [birth year]/13/1971 (Declined at t his time) Start: 08-16-2024 Covid-19 Vaccine () Covid-19 Vaccine () [facility] Start: 06-18-2024 DIABETES SCREEN DIABETES SCREEN [facility] Start: 05-18-2024 Advance Directive Discussion Advance Directive Discussion [facility] Start: 04-18-2024 End: 04-18-2024 Patient encounter procedure 04/18/2024 9:20 AM EST Office Visit Internal Medicine [place] [address] [place] [address] Christina Martin APRN.PLY BANDER [address] [place] [address] 2 week follow up [facility] [place] Comment on above: 2 week follow up Start: 03-31-2024 End: 03-31-2024 Patient encounter procedure 03/31/2024 7:20 AM EST Office Visit Internal Medicine [place] [address] [place] [address] Christina Martin APRN.PLY BANDER [address] [place] [address] 6 month follow up-labs and bone density [facility] [place] Comment on above: 6 month follow up-labs and bone density Start: 03-08-2024 End: 03-08-2024 Patient encounter procedure 03/08/2024 7:30 AM EDT Appointment Mammogram [address] [place] [address] Encounter for screening mammogram for breast cancer [Z12.31] Mammogram Comment on above: Encounter for screening mammogram for br east cancer [Z12.31] Start: 03-06-2024 Mammography Mammogram Screening [facility] Start: 03-06-2024 Screening for malignant neoplasm of breast Mammogram Screening [facility] Start: 02-22-2024 End: 02-22-2024 Patient encounter procedure 02/22/2024 1:30 PM EDT Office Visit URO/Gynecology [address] [place] [address] Michael Manzanares MD [address] [address] Bulkamid URO/Gynecology Comment on above: [facility] Start: 02-05-2024 End: 02-05-2024 Patient encounter procedure 02/05/2024 11:45 AM EDT Office Visit URO/Gynecology [address] [place] [address] Michael Manzanares MD [address] [address] POST OP 3 MONTHS URO/Gynecology Comment on above: POST OP 3 MONTHS Start: 02-04-2024 End: 05-05-2024 CBC panel - Blood by Automated count CBC Lab Routine Uterovaginal prolapse, incomplete Preop examination Expected: 02/04/2024, Expires: 05/05/2024 [facility] Work Phone: Comment on above: Expected: 02/04/2024, Expires: Start: 01-28-2024 End: 01-28-2024 Patient encounter procedure 01/28/2024 8:30 AM EDT Office Visit [facility] [address] [address] Mara Landeros APRN.PLY BANDER [address] [place] [address] -x2 (Work) POST OP 3 MONTHS [facility] Comment on above: POST OP 3 MONTHS Start: 01-17-2024 Covid-19 Vaccine ( season) Covid-19 Vaccine ( season) [facility] Start: 01-17-2024 Covid-19 Vaccine ( season) Covid-19 Vaccine () [facility] Start: 01-17-2024 Influenza vaccination Influenza Vaccine (#1) [place] [facility] Start: 12-02-2023 End: 12-02-2023 Patient encounter procedure 12/02/2023 10:30 AM EDT Office Visit [facility] [address] [address] Michael Manzanares MD [address] [facility] [address] [place], [place] [id number] POST OP 4-6 WEEKS [facility] Comment on above: POST OP 4-6 WEEKS Start: 10-27-2023 End: 10-27-2023 Admission to same day surgery center 10/27/2023 7:30 AM EDT - 10/27/2023 12:00 PM EDT Surgery [facility] [address] [place] [address] Michael Manzanares MD [address] [id number] COLPOPEXY VAGINAL VAULT SUSPENSION INTRA-PERITONEAL APPROACH [facility] Comment on above: COLPOPEXY VAGINAL VAULT SUSPENSION INTRA -PERITONEAL APPROACH Start: 10-27-2023 End: 10-27-2023 Cmbnd anterpost colporraphy w/cysto COMBINED ANTERIOPOSTERIOR COLPORRHAPHY INCLUDING CYSTOURETHROSCOPY WHEN PERFORMED Uterovaginal prolapse, incomplete Cystocele, midline Rectocele 10/27/2023 7:30 AM EDT [facility] OR Start: 10-27-2023 End: 10-27-2023 Colpopexy vaginal intraperitoneal approach COLPOPEXY VAGINAL VAULT SUSPENSION INTRA-PERITONEAL APPROACH Uterovaginal prolapse, incomplete Cystocele, midline Rectocele 10/27/2023 7:30 AM EDT [facility] OR Start: 10-27-2023 End: 10-27-2023 Perineoplasty rpr perineum nonobstetrical spx PERINEOPLASTY, NON-OBSTETRICAL Uterovaginal prolapse, incomplete Cystocele, midline Rectocele 10/27/2023 7:30 AM EDT [facility] OR Start: 10-27-2023 Subsequent hospital visit by physician 10/27/2023 7:30 AM EDT Hospital Encounter [facility] [address] [place] [address] Michael Manzanares MD [address] [address] Uterovaginal prolapse, incomplete [N81.2] [facility] Comment on above: Uterovaginal prolapse, incomplete [N81.2 ] Start: 10-27-2023 End: 10-27-2023 Vag hyst 250 gm/< w/rmvl tube&/ovary HYSTERECTOMY VAGINAL UTERUS 250G OR LESS REMOVAL TUBE(S) AND/OR OVARY(S) Uterovaginal prolapse, incomplete Cystocele, midline Rectocele 10/27/2023 7:30 AM EDT [facility] OR Start: 10-16-2023 End: 10-16-2023 ambulatory 10/16/2023 2:00 PM EDT Results Only [facility] [address] [place] [address] PRE OP [facility] Comment on above: PRE OP Start: 10-16-2023 End: 10-16-2023 Anesthesia consultation 10/16/2023 1:00 PM EDT PAT Pre Anesthesia [address] [place] [address] 1, Pacc [place] [address] [place] [address] PRE OP Pre Anesthesia Comment on above: PRE OP Start: 10-13-2023 End: 10-13-2023 ambulatory 10/13/2023 1:00 PM EDT [facility] [address] [address] Gary, Uro Editing Computer Publisher Nurse [address] [address] PRE OP TEACHING TELEVISIT [facility] Comment on above: PRE OP TEACHING TELEVISIT Start: 10-01-2023 End: 10-01-2023 Patient encounter procedure 10/01/2023 7:45 AM EDT Appointment Radiology [address] [place] [address] Encounter for screening for osteoporosis [Z13.820]; Asymptomatic postmenopausal status [Z78.0] Radiology Comment on above: Encounter for screening for osteoporosis [Z13.820]; Asymptomatic postmenopausal status [Z78.0] Start: 09-28-2023 End: 12-28-2023 Comprehensive metabolic 2000 panel - Serum or Plasma [facility] Comment on above: Expected: 09/28/2023, Expires: 4 Start: 09-28-2023 End: 12-28-2023 Lipid 1996 panel - Serum or Plasma [facility] Work Phone: Comment on above: Expected: 09/28/2023, Expires: 4 Start: 09-02-2023 Medicare Annual Wellness Visit Medicare Annual Wellness Visit [facility] Start: 09-02-2023 Urine microalbumin profile DTaP,Tdap,Td Vaccine (1 - Tdap) [facility] Comment on above: Postponed from 12/13/1971 (Declined at t his time) Start: 05-18-2023 Advance Directive Discussion Advance Directive Discussion [facility] Start: 05-18-2023 Behavioral Health Screening Behavioral Health Screening [facility] Start: 05-18-2023 Depression Assessment Depression Assessment [facility] Start: 01-16-2023 Covid-19 Vaccine () Covid-19 Vaccine () [facility] Start: 01-16-2023 Mammography [facility] Start: 05-18-2022 ADVANCE DIRECTIVE DISCUSSION ADVANCE DIRECTIVE DISCUSSION [facility] Start: 05-18-2022 DEPRESSION ASSESSMENT DEPRESSION ASSESSMENT [facility] Start: 04-28-2022 End: 05-12-2022 SARS-CoV-2 (COVID-19) RNA [Presence] in Respiratory specimen by FLACO with probe detection 2019 CORONAVIRUS Microbiology Routine Acute non-recurrent sinusitis, unspecified location Expected: 04/28/2022, Expires: 05/12/2022 [facility] Work Phone: Comment on above: Expected: 04/28/2022, Expires: 2 Start: 04-25-2022 Patient referral [facility] Work Phone: Start: 04-23-2022 Anes open/surg arthroscopic proc knee joint nos ANESTH KNEE JOINT SURGERY [facility] Start: 04-23-2022 Arthrs kne surg w/meniscectomy med/lat w/shvg KNEE ARTHROSCOPY/SURGERY [facility] Start: 04-23-2022 Patient discharge [facility] Start: 03-18-2022 Adult depression screening assessment DEPRESSION SCREENING [facility] Start: 01-16-2022 Influenza vaccination INFLUENZA (#1) [facility] Start: 12-20-2021 Mammography MAMMOGRAM [facility] Start: 07-24-2021 COVID-19 VACCINE (4 - Booster for Moderna series) COVID-19 VACCINE (4 - Booster for Moderna series) [facility] Start: 05-21-2021 COVID-19 VACCINE (4 - Booster for Moderna series) COVID-19 VACCINE (4 - Booster for Moderna series) [facility] Start: 05-18-2021 ADVANCE DIRECTIVE DISCUSSION ADVANCE DIRECTIVE DISCUSSION [facility] Start: 05-18-2021 DEPRESSION ASSESSMENT DEPRESSION ASSESSMENT [facility] Start: 06-05-2020 SHINGRIX VACCINE (2 of 2) SHINGRIX VACCINE (2 of 2) [facility] Start: 05-22-2019 PNEUMOCOCCAL: 65+ (2 - PPSV23 if available, else PCV20) PNEUMOCOCCAL: 65+ (2 - PPSV23 if available, else PCV20) [facility] Start: 05-22-2019 PNEUMOCOCCAL: 65+ (2 - PPSV23 or PCV20) PNEUMOCOCCAL: 65+ (2 - PPSV23 or PCV20) [facility] Start: 2017 PNEUMOVAX AGE 65 AND OVER WITH 5YR LOOKBACK (#1) PNEUMOVAX AGE 65 AND OVER WITH 5YR LOOKBACK (#1) [facility] Start: 2012 RSV Vaccine (1 - 1-dose 60+ series) RSV Vaccine (1 - 1-dose 60+ series) [facility] Start: 1997 COLOGUARD (FIT-DNA) COLOGUARD (FIT-DNA) [facility] Start: [address] COLONOGRAPHY [facility] Start: 1997 FECAL OCCULT BLOOD FECAL OCCULT BLOOD [facility] Start: 1997 Screening for malignant neoplasm of colon [facility] Start: 1997 SIGMOIDOSCOPY SIGMOIDOSCOPY [facility] Start: 12-13-1971 Urine microalbumin profile [facility] End: 10-27-2024 BD DXA TRABECULAR BONE SCORE (TBS) BD DXA TRABECULAR BONE SCORE (TBS) Radiology Routine Encounter for screening for osteoporosis Asymptomatic postmenopausal status 1 Occurrences starting 09/28/2023 until 10/27/2024 [facility] Comment on above: 1 Occurrences starting 09/28/2023 until 10/27/2024 BD DXA TRABECULAR JASSI NE SCORE (TBS) BD DXA TRABECULAR BONE SCORE (TBS) Radiology Routine Encounter for screening for osteoporosis Asymptomatic postmenopausal status 10/01/2023 8:08 AM EDT [facility] CYSTOSCOPY WHI CYSTOSCOPY WHI P rocedures Routine JEMIMA (stress urinary incontinence, female) 1 Occurrences starting 02/05/2024 [facility] Work Phone: Comment on above: 1 Occurrences starting 02/05/2024 End: 10-27-2024 DXA Skeletal system.axial Views for bone density DXA-AXIAL SKELETON Radiology Routine Encounter for screening for osteoporosis Asymptomatic postmenopausal status 1 Occurrences starting 09/28/2023 until 10/27/2024 [facility] Comment on above: 1 Occurrences starting 09/28/2023 until 10/27/2024 DXA Skeletal system.axial Views for bone density DXA-AXIAL SKELETON Radiology Routine Encounter for screening for osteoporosis Asymptomatic postmenopausal status 10/01/2023 8:08 AM EDT [facility] Work Phone: End: 03-08-2023 TAYLOR SCREENING W AQUILES TAYLOR SCREENING W AQUILES Radiology Routine Encounter for screening mammogram for breast cancer Dense breast tissue 1 Occurrences starting 02/06/2022 until 03/08/2023 [facility] Work Phone: Comment on above: 1 Occurrences starting 02/06/2022 until 03/08/2023 End: 04-02-2024 TAYLOR SCREENING W AQUILES TAYLOR SCREENING W AQUILES Radiology Routine Encounter for screening mammogram for breast cancer 1 Occurrences starting 03/04/2023 until 04/02/2024 [facility] Work Phone: Comment on above: 1 Occurrences starting 03/04/2023 until 04/02/2024 Patient Education ED Rib Fracture [facility] Work Phone: Patient referral [facility] Work Phone: Puncture procedure [facility] End: 04-03-2024 XR FOOT GENERAL 3V AP/LAT/OBL RIGHT XR FOOT GENERAL 3V AP/LAT/OBL RIGHT Radiology Routine Right foot pain 1 Occurrences starting 03/05/2023 until 04/03/2024 [facility] Work Phone: Comment on above: 1 Occurrences starting 03/05/2023 until 04/03/2024 XR FOOT GENERAL 3V AP/LAT/OBL RIGHT XR FOOT GENERAL 3V AP/LAT/OBL RIGHT Radiology Routine Right foot pain 03/05/2023 9:06 AM EDT [facility] Work Phone: End: 04-03-2024 XR TOE AP/LAT/OBL RIGHT XR TOE AP/LAT/OBL RIGHT Radiology Routine Toe pain, right 1 Occurrences starting 03/05/2023 until 04/03/2024 [facility] Work Phone: Comment on above: 1 Occurrences starting 03/05/2023 until 04/03/2024 [facility] Immunizations Immunization Date Immunization Notes Care Provider Fa cili 03-05-2023 influenza (HD-IIV4) vaccine, age 65+ yr, high dose, quadrivalent, PF (FLUZONE HIGH-DOSE) Christina Martin FUR FARMER.PLY BANDER Work Phone: [facility] 03-05-2023 influenza virus vacc ine, unspecified formulation Michael Manzanares MD Work Phone: [facility] 03-18-2022 pneumococcal polysaccharide vaccine, 23 valent Christina Martin FUR FARMER.PLY BANDER Work Phone: [facility] Work Phone: 08-24-2020 zoster vaccine recombinant Christina Martin APRN.PLY BANDER Work Phone: [facility] 07-12-2020 COVID-19 vaccine, fu ll dose (MODERNA) Murphy Cuevas MD Work Phone: [facility] Work Phone: 06-15-2020 COVID-19 vaccine, fu ll dose (MODERNA) Murphy Cuevas MD Work Phone: [facility] Work Phone: 04-10-2020 zoster vaccine recombinant Murphy Cuevas MD Work Phone: [facility] Work Phone: 05-22-2018 influenza, high dose seasonal, preservative-free Murphy Cuevas MD Work Phone: [facility] 05-22-2018 pneumococcal conjuga te vaccine, 13 valent Murphy Cuevas MD Work Phone: [facility] 03-20-2009 novel influenza-H1N1 -09, preservative-free, injectable Murphy Cuevas MD Work Phone: [facility] Work Phone: 05-03-2004 hepatitis B vaccine, adult dosage Murphy Cuevas MD Work Phone: [facility] Work Phone: 11-24-2003 hepatitis B vaccine, adult dosage Murphy Cuevas MD Work Phone: [facility] Work Phone: 10-23-2003 hepatitis B vaccine, adult dosage Murphy Cuevas MD Work Phone: [facility] Work Phone: Payers Date Payer Category Payer Self-pay 2021 Unknown [id number] 2021 Medicare UHC AAR MEDICAR E [employer] HMO [id number] 2021-Present [phone] [address] [address] [place] [address] HMO [id number] 2020 Private Health Insurance [id number] 2017 Medicare [id number] 2017 Medicare [id number] Unknown COMMERCIAL OTHER [id number] Unknown [id number] Unknown [id number] Unknown [id number] Unknown [id number] Unknown [id number] Unknown [id number] Unknown [id number] Unknown [id number] Unknown [id number] Unknown [id number] Unknown [id number] Social History Date Type Detail Facility Start: 07-02-2018 End: 11-03-2024 Tobacco smoking status NHIS Ex-smoker [facility] Start: 05-18-1973 End: 05-18-1984 History of tobacco use Current smoker [facility] Start: 05-18-1973 End: 05-18-1984 History of tobacco use Cigarette Smoker [facility] Start: 06-18-2021 End: 11-08-2024 Alcohol intake Current drinker of alcohol (finding) [facility] Start: 06-18-2021 End: 03-06-2023 Alcohol intake [facility] Start: 03-18-2021 History SDOH Alcohol Frequency 5 [facility] Start: 03-18-2021 History SDOH Alcohol Std Drinks 1 [facility] Start: 03-18-2021 History SDOH Alcohol Binge 2 [facility] Start: 08-23-2020 History SDOH Alcohol Comment wine 5-6 days/week [facility] Start: 03-18-2021 History SDOH Social Connections Meetings 98 [facility] Start: 03-18-2021 History SDOH Social Connections Living 3 [facility] Start: 03-18-2021 History SDOH Physica l Activity MPS 6 [facility] Start: 1950 Sex Assigned At Female C [facility] Start: 07-02-2018 End: 02-22-2024 Tobacco use and exposure Smokeless tobacco non-user [facility] Start: 02-16-2021 End: 02-06-2022 Exposure to SARS-CoV-2 (event) Not sure [facility] Start: 02-21-2022 End: 08-06-2023 Tobacco smoking status IDIS Unknown if ever smoked [facility] Start: 09-01-2022 End: 03-06-2023 Social connection and isolation panel [facility] How often do you att end rastafari or spiritism services? Patient refused [facility] Do you belong to any clubs or organizations such as rastafari groups, unions, fraternal or athletic groups, or school groups? No [facility] Are you now , , , , never or living with a partner? [facility] How often to you hav e a drink containing alcohol? 2-3 time sa week [facility] How many standard drinks containing alcohol do you have on a typical day? 1 or 2 [facility] How often do you hav e 6 or more drinks on 1 occasion? Never [facility] Do you feel stress - tense, restless, nervous, or anxious, or unable to sleep at night because your mind is troubled all the time - these days [OSQ] Not at all [facility] (I/We) worried amado er (my/our) food would run out before (I/we) got money to buy more. Never true [facility] Start: 09-01-2022 Alcohol Comment 1-2 glasses a few times a week [facility] Start: 12-18-2019 Gender identity Identifies as female gender (finding) [facility] Start: 12-18-2019 Sexual orientation Heterosexual (martin little) [facility] How often to you hav e a drink containing alcohol? 4 or more times a week [facility] How often do you hav e 6 or more drinks on 1 occasion? Less than monthly [facility] Do you feel stress - tense, restless, nervous, or anxious, or unable to sleep at night because your mind is troubled all the time - these days [OSQ] Only a little [facility] NEGATED: Highlighted row [facility] Goals Date Patient Goal Desired Activity /State Functional Status Date Assessment Result Facility 05-22-2018 Are you deaf, or do you have serious difficulty hearing No 05/22/2018 10:02 AM Khris Quintana MD No [facility] 05-22-2018 Are you blind, or do you have serious difficulty seeing, even when wearing glasses No 05/22/2018 10:02 AM Khris Quintana MD No [facility] 05-22-2018 Do you have serious difficulty walking or climbing stairs No 05/22/2018 10:02 AM Khris Quintana MD No [facility] 05-22-2018 Do you have difficul ty dressing or bathing No 05/22/2018 10:02 AM Khris Quintana MD No [facility] 05-22-2018 Because of a physica l, mental, or emotional condition, do you have difficulty doing errands alone such as visiting a physician's office or shopping No 05/22/2018 10:02 AM Khris Quintana MD No [facility] Mental Status Date Assessment Result Facility 11-08-2024 Cognitive function Touch/Shaking [facility] Work Phone: 04-23-2022 Cognitive function Voice/Name [facility] Work Phone: 05-22-2018 Because of a physica l, mental, or emotional condition, do you have serious difficulty concentrating, remembering, or making decisions No 05/22/2018 10:02 AM Khris Quintana MD No [facility] Clinical Notes 03-18-2021 to 11-08-2024 Note Date & Type Note Facility 11-08-2024 History and physi cristel note Note Date/Time November 08, 2024 1:20pm [facility] Medical Records Department [address] [place] [address] History & Physical Exam 11/08/24 1319 MR#: [id number] Acct: [id number] Name: PHYLLIS SANCHEZ Rep #:[id number] : 1950 73 From: Dhiraj Friend DO PCP: CHRISTINA MARTIN NP-C Status:[facility] Location: [place] [address] HPI - General General Date of Admission: 11/08/24 Date of Service: 11/08/24 Chief Complaint: Abdominal pain HPI Narrative 73-year-old female presents for follow-up of abdominal pain and constipation. She was last seen in the office on 07/04/2024 and had complaints of intermittent,deep, sharp abdominal pain that would wake her early in the morning at least 5 days a week. She had reported pain dissipated with getting up and moving or a bowel movement. She was asked to start Linzess 145 mcg once daily. She reportsimprovement in bowel frequency with Linzess but no improvement in abdominal pain. In addition OOP cost was $500. She is presently taking Benefiber 1-2 times a day and magnesium OTC supplement twice daily. She has a bowel movement daily but reports stools are small. She does endorse minimal improvement in lower abdominal discomfort with a bowel movement. She denies any weight loss orbleeding. I have ordered a CT scan for further evaluation of abdominal pain andshe will try Ibsrela 50 mg twice daily in the interim. Patient Instructions: Ibsrela 50mg BID Complete CT Hold Magnesium when you start Ibsrela, may add back if needed Will enroll in PAT for Ibsrela if not covered benefit COLON 06/01/2024 - TI biopsy unremarkable - Diverticulosis in the recto-sigmoid colon, in the sigmoid colon, at the hepatic flexure, in the ascending colon and in the cecum. - Mild inflammation was found in the ileum secondary to ileitis. Biopsied. 10/14/[address] scan reveals constipation, possible bladder lesion and borderline gastric wall thickening (possibly related to under distension of the stomach). - this is a change from 2022 - partial hysterectomy, oophorectomy, bladder suspension 2023 - Bulkamid to prevent urinary leakage 2023 - UroGYN Dr. Manzanares - [facility] - she reports about 10 days ago she switched back to fiber and magnesium --- reports she was taking Magnesium and Fiber when she had CT completed 10/14 which revealed constipation - with Ibsrela once daily or 1/2 tablet daily she had uncontrolled diarrhea - she is taking psyllium powder 1tbsp BID - Magnesium capsules one capsule daily - she reports with the magnesium and fiber she has a BM 1-2x a day, small stools, soft - denies any diarrhea - denies any weight loss - Linzess was too expensive and caused diarrhea - reports she did take Linzess for two weeks - she did not take Ibsrela daily for two weeks, unable to tolerate diarrhea - discussed likely overflow - she has increased her activity - water intake is good - denies any HB, indigestion, N/V - denies any dysphagia [facility] Medical History Post-menopausal Arthritis PONV (postoperative nausea and vomiting) Leg cramps Wears glasses Alcohol use Seizures Former smoker Synovial cyst of popliteal space [Ho], right knee Tear of medial meniscus of right knee Osteoarthritis of right knee Right knee pain Home Medications ?Medication ?Instructions ?Recorded ?Last Taken ?Type calcium carbonate (Calcium 500) 500 mg PO DAILY 04/22/22 History mecobalamin (vitamin B12) 5,000 5,000 mcg PO DAILY 09/0604/22/22 History mcg disintegrating tablet vitamins A,C,U-rzyi-eapgdb 4,296 1 cap PO BID 12/19/21 04/22/22 History mcg-226 mg-90 mg capsule (PreserVision AREDS) alendronate 10 mg tablet 10 mg PO QWEEK 03/31/24 Unkn own History magnesium 200 mg tablet 200 mg PO DAILY 09/13/24 Unk nown History wheat dextrin 3 gram/3.5 gram oral 1 packet PO QDAY Unknown History powder packet (Benefiber Clear Sugar Free(dextrin)) lubiprostone 8 mcg capsule 8 mcg PO BID #60 caps 10/24 Unknown Rx (Amitiza) Allergy/AdvReac Type Severity Reaction Status Date / Time No Known Allergies Allergy Verified 11/03/24 13:16 Family History Mother Hypertension CVA (cerebral vascular accident) Surgical History History of colonoscopy History of rhinoplasty (05/03/24) History of partial hysterectomy (~10/2023) History of arthroplasty of right knee (~2021) History of hand surgery Social History household members: spouse Smoking Status: Former smoker alcohol intake: current ROS Constitutional Constitutional: Denies fatigue, fever(s), poor appetite, weight gain or weight loss Gastrointestinal Gastrointestinal: Denies belching, bloating, change in bowel habits, change in stool character, chewing difficulty, coffee ground emesis, constipation, cramping, diarrhea, dyspepsia, dysphagia, early satiety, excessive flatus, fecal incontinence, heartburn, hematemesis, hematochezia, hemorrhoids, loose stools, melena, nausea, odynophagia, rectal bleeding, tenesmus, vomiting or weight changes Physical Exam Const alert, oriented x3, no apparent distress and healthy appearing General Appearance: cooperative GI normal to inspection, nondistended, normoactive bowel sounds, soft to palpation, non-tender and non-distended Percussion: normal to percussion Rectal Exam: deferred Assessment & Plan Assessment/Plan (1) Abdominal pain: QUALIFIERS: Abdominal location: periumbilical Qualified Code(s): R10.33 - Periumbilical pain PLAN: Assessment and Plan Assessment and Plan (1) Constipation: Status: Acute Qualifiers: Constipation type: unspecified constipation type Qualified Code(s): K59.00 - Constipation, unspecified (2) Abdominal pain: Status: Acute Qualifiers: Abdominal location: periumbilical Qualified Code(s): R10.33 - Periumbilical pain (3) Abnormal CT scan, bladder: Status: Acute Plan: Patient to obtain copy of CT on disc and take to her f/u appt. with UroGyn the end of this month Follow-up with Dr. Manzanares Orders: Referrals Gastroenterology K59.00 - Constipation, unspecified, R10.33 - Periumbilical pain 11/08/24 1320 <Electronically signed by Dhiraj King DO> Cosigner Signature (if applicable): CC: NANO MARTIN; Dhiraj King DO~ Signed [facility] Work Phone: 1(511) 868-446506-24-2025 Consult note [facility] Medical Records Department [address] [place] [id number] Anesthesia Postop Eval I 11/08/24 1500 MR#: [id number] Acct: [id number] Name: PHYLLIS SANCHEZ Rep #:[id number] : 1950 73 From: David Jeffries PCP: NANO BURLESON Status:REG SD Y Race: C Location: [place] [address] Anesthesia: Postop Eval I Current Vital Signs Temperature: 97.7 F Pulse Rate: 89 Blood Pressure: 129/71 Respiratory Rate: 16 Pulse Ox: 100 Oxygen Delivery Method: Room Air Assessment Airway patent: Yes Spontaneous unlabored respirations: Yes Mental status: Awake and Calm nausea: No Vomiting: No Anesthesia Complication: No Fluid Hydration Crystalloid volume administer (ml): 700 Total IV fluid infused: 700 Progress Note Anesthesia document: Postop Eval 1 completed: Yes 11/08/24 1501 > Date _ David Valadez Signature: Date CC: ~ Signed [facility]06-24-2025 Procedure note [facility] Medical Records Department [address] [place] [address] EGD Report MR#: [id number] Acct: [id number] Name: PHYLLIS SANCHEZ Rep #:[id number] : 1950 73 From: Dhiraj King DO PCP: NANO BURLESON Status:REG SDC Patient Name: Phyllis Sanchez Procedure Date: 11/08/2024 2:38 PM Date of : 1950 Age: 73 Procedure: Upper GI endoscopy Indications: Epigastric abdominal pain, Functional Dyspepsia Providers: Dhiraj King DO Referring MD: Nano Burleson Medicines: Monitored Anesthesia Care Patient Profile: This is a 73 year old female. Refer to note in patient chart for documentation of history and physical. Patient has symptoms of chronic abdominal distention, chronic abdominal pain, chronic dyspepsia and chronic nausea. Complications: No immediate complications. Procedure: Pre-Anesthesia Assessment: - Prior to the procedure, a History and Physical was performed, and patient medications and allergies were reviewed. The patient is competent. The risks and benefits of the procedure and the sedation options and risks were discussed with the patient. All questions were answered and informed consent was obtained. Patient identification and proposed procedure were verified by the physician in the pre-procedure area. Mental Status Examination: alert and oriented. Airway Examination: normal oropharyngeal airway and neck mobility. Respiratory Examination: clear to auscultation. CV Examination: normal. Prophylactic Antibiotics: The patient does not require prophylactic antibiotics. Prior Anticoagulants: The patient has taken no anticoagulant or antiplatelet agents except for NSAID medication. ASA Grade Assessment: II - A patient with mild systemic disease. After reviewing the risks and benefits, the patient was deemed in satisfactory condition to undergo the procedure. The anesthesia plan was to use monitored anesthesia care (MAC). Immediately prior to administration of medications, the patient was re-assessed for adequacy to receive sedatives. The heart rate, respiratory rate, oxygen saturations, blood pressure, adequacy of pulmonary ventilation, and response to care were monitored throughout the procedure. The physical status of the patient was re-assessed after the procedure. After obtaining informed consent, the endoscope was passed under direct vision. Throughout the procedure, the patient's blood pressure, pulse, and oxygen saturations were monitored continuously. The Endoscope was introduced through the mouth, and advanced to the third part of the duodenum. Small bowel enteroscopy was deemed necessary. The upper GI endoscopy was accomplished without difficulty. The patient tolerated the procedure well. Scope In: 2:48:01 PM Scope Out: 2:51:33 PM Total Procedure Duration Time 0 hours 3 minutes 32 seconds Findings: The Z-line was irregular and was found 40 cm from the incisors. Biopsies were taken with a cold forceps for histology. Verification of patient identification for the specimen was done. Estimated blood loss was minimal. A small hiatal hernia was present. Patchy mildly erythematous mucosa without bleeding was found in the gastric body. Biopsies were taken with a cold forceps for histology. Verification of patient identification for the specimen was done. Estimated blood loss was minimal. Biopsies were taken with a cold forceps for Helicobacter pylori testing. Verification of patient identification for the specimen was done. Estimated blood loss was minimal. No gross lesions were noted in the entire examined duodenum. Impression: - Z-line irregular, 40 cm from the incisors. Biopsied. - Small hiatal hernia. - Erythematous mucosa in the gastric body. Biopsied. - No gross lesions in the entire examined duodenum. Recommendation: - Discharge patient to home. - Resume previous diet. - Continue present medications. - Await pathology results. Procedure Code(s): --- Professional --- 70158, Small intestinal endoscopy, enteroscopy beyond second portion of duodenum, not including ileum; with biopsy, single or multiple CPT copyright 2021 [employer]. All rights reserved. The codes documented in this report are preliminary and upon surplus property disposal agent review may be revised to meet current compliance requirements. Dhiraj King DO 11/08/2024 2:57:35 PM This report has been signed electronically. Number of Addenda: 0 Note Initiated On: 11/08/2024 2:38 PM 11/08/24 1457 Date _ Dhiraj Vaughn Signature: Date (if indicated) CC: LITIGATION SUPPORT ANALYSTElviaC CHRISTINA MARTIN; Dhiraj King DO ~ Date Dictated: 11/08/24 1438 Date Transcribed: Customer Care Voice Consultant: RF Signed [facility]06-24-2025 Procedure note [facility] Medical Records Department [address] [place] [address] Operative Report - CC Letter MR#: [id number] Acct: [id number] Name: PHYLLIS SANCHEZ Rep #:[id number] : 1950 73 From: Dhiraj King DO PCP: NANO BURLESON Status:[facility] 11/08/2024 Christina Martin, Fixed Assets Accountant-c Re : Upper GI endoscopy procedure for Phyllis Daniel Martin This procedure was performed on Friday, November 08, 2024. My impressions and recommendations are as follows: Impressions : - Z-line irregular, 40 cm from the incisors. Biopsied. - Small hiatal hernia. - Erythematous mucosa in the gastric body. Biopsied. - No gross lesions in the entire examined duodenum. Recommendations : - Discharge patient to home. - Resume previous diet. - Continue present medications. - Await pathology results. My findings are described in the full procedure note, which is enclosed. If I can be of further assistance, please feel free to contact me at . Sincerely, Dhiraj King DO 11/08/2024 2:57:35 PM This report has been signed electronically. 11/08/24 145 Date _ Dhiraj Vaughn Signature: Date (if indicated) CC: LITIGATION SUPPORT ANALYST-C CHRISTINA MARTIN; Dhiraj Friend, DO ~ Date Dictated: 11/08/24 1438 Date Transcribed: Customer Care Voice Consultant: JOHNY Signed [facility]06-24-2025 Consult note [facility] Medical Records Department [address] [place] [address] Pre-Anesthesia Evaluation 11/08/24 1413 MR#: [id number] Acct: [id number] Name: PHYLLIS SANCHEZ Rep #:[id number] : 1950 73 From: Rodolfo Huffman MD PCP: CHRISTINA MARTIN, LITIGATION SUPPORT ANALYST-C Status:REG SDC Y Race: C Location: [place] [address] ASA Classification* ASA Classification ASA Classification: 2 Assessment & Plan Anesthesia* Anesthesia Assessment Anesthesia Assessment: Discussed sedation and/or anesthesia options, risks, benefits, and alternatives with patient/parents/legal guardian/POA. Questions invited. The patient/parents/legal guardian/POA seems to understand and agrees to proceedwith anesthesia plan. Reviewed the physical assessment, medical history, allergy history and patient home medications list prior to surgery/procedure/anesthetic and documented any changes. Performed airway and anesthesia risk assessments. Anesthesia Type Anesthesia Type: MAC History Source History Obtained from:: Patient and Chart Anesthesia Focused Assessment* Temperature: 98.9 F Pulse Rate: 74 Blood Pressure: 141/81 Respiratory Rate: 16 Pulse Ox: 100 Oxygen Delivery Method: Room Air Airway Assessment Mouth opens: >3 cm Mallampati Score: II Teeth Condition: Intact Neck Range of motion (ROM): Full ROM Labs Anesthesia Preop lab: CBC WBC 4.4 K/mm3 (4.4-11.0) 03/21/24 07:35 03/21/24 RBC 4.79 M/mm3 (4.2-5.4) 03/21/24 07:35 03/21/24 Hgb 14.5 g/dL (12.0-15.0) 03/21/24 07:35 03/21/24 Hct 43.9 % (37-47) 03/21/24 07:35 03/21/24 Plt Count 225 K/mm3 (150-450) 03/21/24 07:35 03/21/24 CHEMISTRY Potassium 4.0 mmol/L (3.5-5.1) 03/21/24 07:35 03/21/24 Sodium 139 mmol/L (136-145) 03/21/24 07:35 03/21/24 BUN 15 mg/dL (7-18) 03/21/24 07:35 03/21/24 Creatinine 0.77 mg/dL (0.55-1.02) 03/21/24 07:35 03/21/24 Glucose 94 mg/dL (74-106) 03/21/24 07:35 03/21/24 COAG Pre-Assessment Diagnosis/Proposed Procedure Planned Operative Procedure(s): EGD Anesthesia History 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 When Was Last Pacemaker Check QUESTION #4 FULL TEXT: You/Your Family Experience fever (hyperthermia) with Anesthesia Last Oral Intake Last Oral intake: Last Oral Intake NPO since 09:45 11/08/24 13:42 Meds taken in AM with sips of No 11/08/24 13:42 water? 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 operator Female Yes 11/03/24 13:18 HX of Motion Sickness No 11/03/24 13:18 HX of N/V After Surgery Yes 11/03/24 13:18 Non-Smoker Yes 11/03/24 13:18 Duration of Surgery greater No 11/03/24 13:18 than 60 minutes Number of Risk Factors 3 11/03/24 13:18 PONV Score Moderate Risk 11/03/24 13:18 Height & Weight Height & Weight: Anesthesia: Height & Weight Height 5 ft 11/08/24 13:42 Weight: 47.6 kg 11/08/24 13:42 Body Mass Index (BMI) 20.5 11/08/24 13:42 Respiratory Assessment Respiratory Assessment - hat brim and crown laminating operator: Respiratory Tract Infection Hx - 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 Has anyone observed you stop No 11/03/24 13:18 breathing during sleep? STOP Results Negative 11/03/24 13:18 QUESTION #5 FULL TEXT : Do you snore loudly (louder than talking or can be heard through closeddoors)? 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 Specify any problems Hx of Preganancy in last 3 N/A 11/03/24 13:18 Months Nurse Filling Out Transfusion NBUCHER 11/03/24 13:18 & Questions: Date: 11/03/24 11/03/24 13:18 Time: 13:18 11/03/24 13:18 Patient unable to answer at this time (ie. 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: /Reproductive Hx- hat brim and crown laminating operator Hx Now Gestational Age (in weeks): EDC: Hx Hx Para Hx Section SAB No 11/03/24 13:18 Active Medications Active Medications: Current Medications Generic Name Dose Route Start Last Admin Trade Name Freq PRN Reason Stop Dose Admin Lactated Ringer's 1,000 mls @ 15 mls/hr 11/08/24 13:15 11/08/24 13:41 IV 15 mls/hr .Q48H JACEY Administration PFSH Medical History Post-menopausal Arthritis PONV (postoperative nausea and vomiting) Leg cramps Wears glasses Alcohol use Seizures Former smoker Synovial cyst of popliteal space [Ho], right knee Tear of medial meniscus of right knee Osteoarthritis of right knee Right knee pain Home Medications ?Medication ?Instructions ?Recorded ?Last Taken ?Type calcium carbonate (Calcium 500) 500 mg PO DAILY 04/22/22 History mecobalamin (vitamin B12) 5,000 5,000 mcg PO DAILY 09/0604/22/22 History mcg disintegrating tablet vitamins A,C,Y-xfgd-otrbmo 4,296 1 cap PO BID 12/19/21 04/22/22 History mcg-226 mg-90 mg capsule (PreserVision AREDS) alendronate 10 mg tablet 10 mg PO QWEEK 03/31/24 Unkn own History magnesium 200 mg tablet 200 mg PO DAILY 09/13/24 Unk nown History wheat dextrin 3 gram/3.5 gram oral 1 packet PO QDAY Unknown History powder packet (Benefiber Clear Sugar Free(dextrin)) lubiprostone 8 mcg capsule 8 mcg PO BID #60 caps 10/24 Unknown Rx (Amitiza) Allergy/AdvReac Type Severity Reaction Status Date / Time No Known Allergies Allergy Verified 11/08/24 13:39 Family History Mother Hypertension CVA (cerebral vascular accident) Surgical History History of colonoscopy History of rhinoplasty (05/03/24) History of partial hysterectomy (~10/2023) History of arthroplasty of right knee (~2021) History of hand surgery Social History household members: spouse Smoking Status: Former smoker alcohol intake: current Review of Systems (Anesthesia) ROS Narrative System reviewed and no additional complaints, except as documented. 11/08/24 1419 eula MONTERO> Date _ Rodolfo Huffman MD Cosigner Signature: Date CC: ~ Signed [facility]06-24-2025 History and physical note [facility] Medical Records Department [address] [place] [address] History & Physical Exam 11/08/24 1319 MR#: [id number] Acct: [id number] Name: PHYLLIS SANCHEZ Rep #:[id number] : 1950 73 From: Dhiraj Friend PCP: MEIR BURLESONC Status:[facility] Location: [place] [address] HPI - General General Date of Admission: 11/08/24 Date of Service: 11/08/24 Chief Complaint: Abdominal pain HPI Narrative 73-year-old female presents for follow-up of abdominal pain and constipation. She was last seen in the office on 07/04/2024 and had complaints of intermittent,deep, sharp abdominal pain that would wake her early in the morning at least 5 days a week. She had reported pain dissipated with getting up and moving or a bowel movement. She was asked to start Linzess 145 mcg once daily. She reportsimprovement in bowel frequency with Linzess but no improvement in abdominal pain. In addition OOP cost was$500. She is presently taking Benefiber 1-2 times a day and magnesium OTC supplement twice daily. She has a bowel movement daily but reports stools are small. She does endorse minimal improvement in lower abdominal discomfort with a bowel movement. She denies any weight loss orbleeding. I have ordered a CT scan for further evaluation of abdominal pain andshe will try Ibsrela 50 mg twice daily in the interim. Patient Instructions: Ibsrela 50mg BID Complete CT Hold Magnesium when you start Ibsrela, may add back if needed Will enroll in PAT for Ibsrela if not covered benefit COLON 06/01/2024 - TI biopsy unremarkable - Diverticulosis in the recto-sigmoid colon, in the sigmoid colon, at the hepatic flexure, in the ascending colon and in the cecum. - Mild inflammation was found in the ileum secondary to ileitis. Biopsied. 10/14/[address] scan reveals constipation, possible bladder lesion and borderline gastric wall thickening (possibly related to under distension of the stomach). - this is a change from 2022 - partial hysterectomy, oophorectomy, bladder suspension 2023 - Bulkamid to prevent urinary leakage 2023 - UroGYN Dr. Manzanares - CC - she reports about 10 days ago she switched back to fiber and magnesium --- reports she was takingMagnesium and Fiber when she had CT completed 10/14 which revealed constipation - with Ibsrela once daily or 1/2 tablet daily she had uncontrolled diarrhea - she is taking psyllium powder 1tbsp BID - Magnesium capsules one capsule daily - she reports with the magnesium and fiber she has a BM 1-2x a day, small stools, soft - denies any diarrhea - denies any weight loss - Linzess was too expensive and caused diarrhea - reports she did take Linzess for two weeks - she did not take Ibsrela daily for two weeks, unable to tolerate diarrhea - discussed likely overflow - she has increased her activity - water intake is good - denies any HB, indigestion, N/V - denies any dysphagia [facility] Medical History Post-menopausal Arthritis PONV (postoperative nausea and vomiting) Leg cramps Wears glasses Alcohol use Seizures Former smoker Synovial cyst of popliteal space [Ho], right knee Tear of medial meniscus of right knee Osteoarthritis of right knee Right knee pain Home Medications ?Medication ?Instructions ?Recorded ?Last Taken ?Type calcium carbonate (Calcium 500) 500 mg PO DAILY 04/22/22 History mecobalamin (vitamin B12) 5,000 5,000 mcg PO DAILY 09/0604/22/22 History mcg disintegrating tablet vitamins A,C,F-bhsp-awvybn 4,296 1 cap PO BID 12/19/21 04/22/22 History mcg-226 mg-90 mg capsule (PreserVision AREDS) alendronate 10 mg tablet 10 mg PO QWEEK 03/31/24 Unkn own History magnesium 200 mg tablet 200 mg PO DAILY 09/13/24 Unk nown History wheat dextrin 3 gram/3.5 gram oral 1 packet PO QDAY Unknown History powder packet (Benefiber Clear Sugar Free(dextrin)) lubiprostone 8 mcg capsule 8 mcg PO BID #60 caps 10/24 Unknown Rx (Amitiza) Allergy/AdvReac Type Severity Reaction Status Date / Time No Known Allergies Allergy Verified 11/03/24 13:16 Family History Mother Hypertension CVA (cerebral vascular accident) Surgical History History of colonoscopy History of rhinoplasty (05/03/24) History of partial hysterectomy (~10/2023) History of arthroplasty of right knee (~2021) History of hand surgery Social History household members: spouse Smoking Status: Former smoker alcohol intake: current ROS Constitutional Constitutional: Denies fatigue, fever(s), poor appetite, weight gain or weight loss Gastrointestinal Gastrointestinal: Denies belching, bloating, change in bowel habits, change in stool character, chewing difficulty, coffee ground emesis, constipation, cramping, diarrhea, dyspepsia, dysphagia, earlysatiety, excessive flatus, fecal incontinence, heartburn, hematemesis, hematochezia, hemorrhoids, loose stools, melena, nausea, odynophagia, rectal bleeding, tenesmus, vomiting or weight changes Physical Exam Const alert, oriented x3, no apparent distress and healthy appearing General Appearance: cooperative GI normal to inspection, nondistended, normoactive bowel sounds, soft to palpation, non-tender and non-distended Percussion: normal to percussion Rectal Exam: deferred Assessment & Plan Assessment/Plan (1) Abdominal pain: QUALIFIERS: Abdominal location: periumbilical Qualified Code(s): R10.33 - Periumbilical pain PLAN: Assessment and Plan Assessment and Plan (1) Constipation: Status: Acute Qualifiers: Constipation type: unspecified constipation type Qualified Code(s): K59.00 - Constipation, unspecified (2) Abdominal pain: Status: Acute Qualifiers: Abdominal location: periumbilical Qualified Code(s): R10.33 - Periumbilical pain (3) Abnormal CT scan, bladder: Status: Acute Plan: Patient to obtain copy of CT on disc and take to her f/u appt. with UroGyn the end of this month Follow-up with Dr. Manzanares Orders: Referrals Gastroenterology K59.00 - Constipation, unspecified, R10.33 - Periumbilical pain 11/08/24 1320 Cosigner Signature (if applicable): CC: NANO MARTIN; Dhiraj King, ~ Signed [facility]06-24-2025 [facility] Medical Records Department [address] [place] [id number] History Physical Exam 11/08/24 1319 MR#: [id number] Acct: [id number] Name: PHYLLIS SANCHEZ Rep #: [id number] : 1950 73 From: Dhiraj King DO PCP: NANO BURLESON Status:[facility] Location: [place] [address] HPI - General General Date of Admission: 11/08/24 Date of Service: 11/08/24 Chief Complaint: Abdominal pain HPI Narrative 73-year-old female presents for follow-up of abdominal pain and constipation. She was last seen in the office on 07/04/2024 and had complaints of intermittent, deep, sharp abdominal pain that would wake her early in the morning at least 5 days a week. She had reported pain dissipated with getting up and moving or a bowel movement. She was asked to start Linzess 145 mcg once daily. She reports improvement in bowel frequency with Linzess but no improvement in abdominal pain. In addition OOP cost was $500. She is presently taking Benefiber 1-2 times a day and magnesium OTC supplement twice daily. She has a bowel movement daily but reports stools are small. She does endorse minimal improvement in lower abdominal discomfort with a bowel movement. She denies any weight loss or bleeding. I have ordered a CT scan for further evaluation of abdominal pain and she will try Ibsrela 50 mg twice daily in the interim. Patient Instructions: Ibsrela 50mg BID Complete CT Hold Magnesium when you start Ibsrela, may add back if needed Will enroll in PAT for Ibsrela if not covered benefit COLON 06/01/2024 - TI biopsy unremarkable - Diverticulosis in the recto-sigmoid colon, in the sigmoid colon, at the hepatic flexure, in the ascending colon and in the cecum. - Mild inflammation was found in the ileum secondary to ileitis. Biopsied. 10/14/[address] scan reveals constipation, possible bladder lesion and borderline gastric wall thickening (possibly related to under distension of the stomach). - this is a change from 2022 - partial hysterectomy, oophorectomy, bladder suspension 2023 - Bulkamid to prevent urinary leakage 2023 - UroGYN Dr. Manzanares - CC - she reports about 10 days ago she switched back to fiber and magnesium --- reports she was taking Magnesium and Fiber when she had CT completed 10/14 which revealed constipation - with Ibsrela once daily or 1/2 tablet daily she had uncontrolled diarrhea - she is taking psyllium powder 1tbsp BID - Magnesium capsules one capsule daily - she reports with the magnesium and fiber she has a BM 1-2x a day, small stools, soft - denies any diarrhea - denies any weight loss - Linzess was too expensive and caused diarrhea - reports she did take Linzess for two weeks - she did not take Ibsrela daily for two weeks, unable to tolerate diarrhea - discussed likely overflow - she has increased her activity - water intake is good - denies any HB, indigestion, N/V - denies any dysphagia [facility] Medical History Post-menopausal Arthritis PONV (postoperative nausea and vomiting) Leg cramps Wears glasses Alcohol use Seizures Former smoker Synovial cyst of popliteal space [Ho], right knee Tear of medial meniscus of right knee Osteoarthritis of right knee Right knee pain Home Medications ???Medication ???Instructions ???Recorded ???Last Taken ???Type calcium carbonate (Calcium 500) 500 mg PO DAILY 12/19/21 04/22/22 History mecobalamin (vitamin B12) 5,000 5,000 mcg PO DAILY 12/19/21 History mcg disintegrating tablet vitamins A,C,J-idzt-krmnja 4,296 1 cap PO BID 12/19/21 04/22/22 His tory mcg-226 mg-90 mg capsule (PreserVision AREDS) alendronate 10 mg tablet 10 mg PO QWEEK 03/31/24 Unknown Hi story magnesium 200 mg tablet 200 mg PO DAILY 09/13/24 Unknown H istory wheat dextrin 3 gram/3.5 gram oral 1 packet PO QDAY 09/13/24 Unknow n History powder packet (Benefiber Clear Sugar Free(dextrin)) lubiprostone 8 mcg capsule 8 mcg PO BID #60 caps 10/24/24 Unk nown Rx (Amitiza) Allergy/AdvReac Type Severity Reaction Status Date / Time No Known Allergies Allergy Verified 11/03/24 13:16 Family History Mother Hypertension CVA (cerebral vascular accident) Surgical History History of colonoscopy History of rhinoplasty (05/03/24) History of partial hysterectomy ( 10/2023) History of arthroplasty of right knee ( 2021) History of hand surgery Social History household members: spouse Smoking Status: Former smoker alcohol intake: current ROS Constitutional Constitutional: Denies fatigue, fever(s), poor appetite, weight gain or weight loss Gastrointe (more content not included)...[facility]06-24-2025 History of Present illness Narrative* Dung Holman APRN.PLY BANDER - 11/08/2024 8:30 AM EDT Female Pelvic Medicine & Reconstructive Surgery Follow-Up CHIEF COMPLAINT: Phyllis Sanchez is a 73 year old female, who presents for a follow-up of pelvic organ prolapse repair. History since last visit: Doing well. No complaints. Using vaginal estrogen cream twice weekly. Denies pain with intercourse. 10/27/23 Dr. Manzanares: Transvaginal hysterectomy, Right salpingectomy , Uterosacral ligament suspension of the vaginal vault/intraperitoneal colpopexy, Anterior colporrhaphy, Perineorrhaphy, and Cystoscopy Bulkamid 02/22/24 with Glenna. No issues. Urinary Incontinence: no Voiding Dysfunction: no Urinary Frequency: no Urinary Urgency: no Prolapse Symptoms: no Defecatory Dysfunction: no Fecal Incontinence: no Abnormal Bleeding: no Pain: no Abnormal Vaginal Discharge: no I have confirmed and edited as necessary, the PFSH obtained by others. Dung Holman APRN.PLY BANDER 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 SENSITIVE EXAM: The sensitive examination was discussed with the Patient or Patient's Authorized Health Club Attendant. As applicable, any other physician, advance practice provider, medical student, or other health professional student that will be observing or involved in the sensitive examination for educational or training purposes was discussed with the Patient or Authorized Health Club Attendant. The Patient or Authorized Health Club Attendant has agreed to proceed with the sensitive examination. (Sensitive examination includes inspection and/or palpation of the breasts, pelvis, prostate and anorectal regions). OBJECTIVE: BP 145/84 Pulse 90 Wt 104 lb (47.2kg) General: Well appearing, alert, in no acute distress, well-hydrated, well nourished. Abdomen: Deferred Pelvic: Ext. Genitalia: No lesions or other abnormalities Vagina: atrophic epithelium and adhesions noted mid-vagina POP-Q: Prolapse Noted: No Cervix: Absent Urethra: Normal Bimanual: No tenderness, No masses Rectovaginal: Deferred UA results: N/A Bladder scan: N/A Plan: Assessment & Plan Post-operative state - Doing well. JEMIMA (stress urinary incontinence, female) - No concerns. Vaginal atrophy - Continue using vaginal estrogen cream twice weekly. Vaginal adhesions, postprocedural - Exam findings discussed. - Denies pain with intercourse. I spent a total of 20 minutes on the date of the service which included preparing to see the patient, [id number] patient care, completing clinical documentation, performing a medically appropriate examination, and counseling and educating the patient/family/caregiver. Dung Holman APRN.PLY BANDER [facility] NoteHNO ID: [id number] Author: DUNG HOLMAN APRN.RAS Service: ? Author Type: Nurse Practitioner Type: Progress Notes Filed: 11/08/2024 08:36 Note Text: Female Pelvic Medicine AND Reconstructive Surgery Follow-Up CHIEF COMPLAINT: Phyllis Sanchez is a 73 year old female, who presents for a follow-up of pelvic organ prolapse repair. History since last visit: Doing well. No complaints. Using vaginal estrogen cream twice weekly. Denies pain with intercourse. 10/27/23 Dr. Manzanares: Transvaginal hysterectomy, Right salpingectomy , Uterosacral ligament suspension of the vaginal vault/intraperitoneal colpopexy, Anterior colporrhaphy, Perineorrhaphy, and Cystoscopy Bulkamid 02/22/24 with Glenna. No issues. Urinary Incontinence: no Voiding Dysfunction: no Urinary Frequency: no Urinary Urgency: no Prolapse Symptoms: no Defecatory Dysfunction: no Fecal Incontinence: no Abnormal Bleeding: no Pain: no Abnormal Vaginal Discharge: no I have confirmed and edited as necessary, the PFSH obtained by others. Dung Holman APRN.PLY BANDER 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 SENSITIVE EXAM: The sensitive examination was discussed with the Patient or Patient's Authorized Health Club Attendant. As applicable, any other physician, advance practice provider, medical student, or other health professional student that will be observing or involved in the sensitive examination for educational or training purposes was discussed with the Patient or Authorized Health Club Attendant. The Patient or Authorized Health Club Attendant has agreed to proceed with the sensitive examination. (Sensitive examination includes inspection and/or palpation of the breasts, pelvis, prostate and anorectal regions). OBJECTIVE: BP 145/84 Pulse 90 Wt 104 lb (47.2kg) General: Well appearing, alert, in no acute distress, well-hydrated, well nourished. Abdomen: Deferred Pelvic: Ext. Genitalia: No lesions or other abnormalities Vagina: atrophic epithelium and adhesions noted mid-vagina POP-Q: Prolapse Noted: No Cervix: Absent Urethra: Normal Bimanual: No tenderness, No masses Rectovaginal: Deferred UA results: N/A Bladder scan: N/A Plan: Assessment AND Plan Post-operative state - Doing well. JEMIMA (stress urinary incontinence, female) - No concerns. Vaginal atrophy - Continue using vaginal estrogen cream twice weekly. Vaginal adhesions, postprocedural - Exam findings discussed. - Denies pain with intercourse. I spent a total of 20 minutes on the date of the service which included preparing to see the patient, [id number] patient care, completing clinical documentation, performing a medically appropriate examination, and counseling and educating the patient/family/caregiver. Dung Holman APRN.[facility]06-01-2025 Radiology Diagnostic study note [facility] Imaging Services [address] [place] [address] Abdomen/Pelvis WITH Contrast MR#: [id number] Acct: [id number] Name: PHYLLIS SANCHEZ Rep #: [id number] : 1950 F 73 From: Hiram Lawler MD PCP: CHRISTINA MARTIN LITIGATION SUPPORT ANALYSTElviaC Status: REG CLI Study:Abdomen/Pelvis WITH Contrast Date of Ex am: 10/14/24 Exam# [id number] Ordering Dr: Melba Pinon NP-Patria PROCEDURE: ABDOMEN/PELVIS WITH CONTRAST 10/14/2024 REASON FOR EXAM: LOWER ABDOMINAL PAIN TECHNIQUE: Abdomen and pelvis CT with intravenous contrast. Coronal and Sagittal reconstruction series were provided. PATIENT PREPARATION: Per protocol Enteric contrast was administered. CONTRAST: Isovue 370 VOLUME: 100 mL. One or more dose reduction techniques were used (e.g., Automated exposure control, adjustment of the mA and/or kV according to patient size, use of iterative reconstruction technique. RADIATION DOSE SUMMARY: CTDlvol: 16.62+ 5.50 mGy DLP: 260.96 mGycm COMPARISON: 03/17/2023. FINDINGS: Similar densities of the lung bases which may represent scar. The peripheral soft tissues are unremarkable. Degenerative changes of the spine most pronounced at L3-4. Mild to moderate atherosclerosis. Normal caliber abdominal aorta. No suspicious lymphadenopathy. The liver, gallbladder, pancreas, spleen, and adrenal glands are unremarkable. Symmetric enhancement of the bilateral kidneys. No nephrolithiasis. No hydroureteronephrosis. Left kidney simple renal sinus cysts. Possible small lesion abutting the posteroinferior wall of the urinary bladder (coronal image 56 of97). Normal caliber large and small bowel. Normal caliber appendix. No surrounding inflammatory changes.Dense colonic stool. Borderline gastric wall thickening. CT/Abdomen/Pelvis WITH Contrast IMPRESSION: Possible urinary bladder lesion. Further characterization with ultrasound is recommended. Borderline gastric wall thickening which may be due to underdistention or gastritis. Constipation. Reading Location: [place] [address] CC: NANO MARTIN; NANO Pinon ~ Customer Care Voice Consultant: Signed [facility]04-29-2025 Evaluation note* Diagnosis Onset Date Resolution Status Admit Date Abdominal pain acute August 8:21am Constipation acute September 13, 2024 8:21am Abdominal pain acute October 24, 2024 8:27am Abnormal CT scan, bladder acute October 24, 2024 8:27am Constipation acute October 24 8:27am Abdominal pain acute November 08, 2024 1:05pm [facility] Work Phone: 1(449) 360-504502-17-2025 Evaluation note* Diagnosis Onset Date Resolution Status Admit Date Abdominal pain acute June 182024 12:52pm Constipation acute June 12:52pm Abdominal pain acute August 8:21am Constipation acute September 13, 2024 8:21am [facility] Work Phone: 1(774) 852-463901-15-2025 [facility] Medical Records Department [address] [place] [id number] History Physical Exam 06/01/24 0656 MR#: [id number] Acct: [id number] Name: PHYLLIS SANCHEZ Rep #: [id number] : 1950 73 From: Dhiraj Friend DO PCP: NANO BURLESON Status:[facility] Location: [place] [address] HPI - General General Date of Admission: 06/01/24 Date of Service: 06/01/24 Chief Complaint: abdominal pain HPI Narrative PHYLLIS SANCHEZ, is a 73 F who presents Chief Complaint: bowel changes and abdominal discomfort Details: 73y/o female presents for consultation of abdominal pain. CBC and BMP were unremarkable 03/21/2024. CT A P 03/17/2023 Large amount of fecal material is seen in the colon. COLONOSCOPY last performed 6 years ago per patient - she reports this was negative - denies any family h/o colon CA - she complains of 8/10 abdominal pain, intermittent x1 year, she describes this as an aching pain, reports getting up and moving around helps alleviate the pain - does not eat until the pain resolves - wakes her in the morning and lingers for a few hours - she is having a BM daily - bit now having smaller more frequent stools instead of 1 formed stool - denies any dietary or medication changes - denies any weight loss - she had bladder surgery October 2023 for bladder prolapse, also had a partial hysterctomy ay this time - reports taking Mag Citrate prior to surgery took 5h to work - denies any HB or indigestion - denies any N/V - denies any bleeding - Miralax for 10 days caused fecal leakage and did not help with frequency of stools or quantity B - bread and coffee L - salad with a protein, cottage cheese or fruit D - starch, protein and vegetable sometimes - she reports drinking plenty of water PFSH Medical History Post-menopausal Arthritis PONV (postoperative nausea and vomiting) Leg cramps Wears glasses Alcohol use Seizures Former smoker Synovial cyst of popliteal space [Ho], right knee Tear of medial meniscus of right knee Osteoarthritis of right knee Right knee pain Home Medications ???Medication ???Instructions ???Recorded ???Last Taken ???Type calcium carbonate (Calcium 500) 500 mg PO DAILY 12/19/21 04/22/22 History mecobalamin (vitamin B12) 5,000 5,000 mcg PO DAILY 12/19/21 04/22/22 History mcg disintegrating tablet vitamins A,C,Z-prfe-msqvxx 4,296 1 cap PO BID 12/19/21 04/22/22 History mcg-226 mg-90 mg capsule (PreserVision AREDS) alendronate 10 mg tablet 10 mg PO .once a week 03/31/24 Unknown History dicyclomine 10 mg capsule 10 mg PO TID PRN abdominal pain 04/25/24 Unknown Rx #60 caps magnesium 200 mg tablet 200 mg PO DAILY 05/30/24 Unknown History Allergy/AdvReac Type Severity Reaction Status Date / Time No Known Allergies Allergy Verified 06/01/24 05:51 Family History Mother Hypertension CVA (cerebral vascular accident) Surgical History History of rhinoplasty (05/03/24) History of partial hysterectomy ( 10/2023) History of arthroplasty of right knee ( 2021) History of hand surgery Social History household members: spouse Smoking Status: Former smoker alcohol intake: current ROS Constitutional Constitutional: Denies fatigue, fever(s), poor appetite, weight gain or weight loss Gastrointestinal Gastrointestinal: Denies belching, bloating, change in bowel habits, change in stool character, chewing difficulty, coffee ground emesis, constipation, cramping, diarrhea, dyspepsia, dysphagia, early satiety, excessive flatus, fecal incontinence, heartburn, hematemesis, hematochezia, hemorrhoids, loose stools, melena, nausea, odynophagia, rectal bleeding, tenesmus, vomiting or weight changes Vital Signs Vital Signs Vital Signs: 06/01/24 05:52 06/01/24 05:52 06/01/24 06:42 Temperature 98.0 F 98.0 F Temperature Source Temporal Pulse Rate 90 90 Respiratory Rate 18 18 Respiratory Pattern Normal Blood Pressure 138/81 H 138/81 H Blood Pressure Mean 100 Blood Pressure Source Monitor Blood Pressure Position Sitting Blood Pressure Location Left Arm Pulse Ox 99 99 Oxygen Delivery Method Room Air Weight Weight: 103 lb 9.876 oz Body Mass Index (BMI) 20.2 Physical Exam Const alert, oriented x3, no apparent distress and healthy appearing General Appearance: cooperative GI normal to inspection, nondistended, normoactive bowel sounds, soft to palpation, non-tender and non- distended Percussion: normal to percussion Rectal Exam: deferred Assessment Plan Assessment/Plan (1) Constipation: QUALIFIERS: Constipation (more content not included)...[facility]11-14-2024 NoteHNO ID: [id number] Author: CHRISTINA MARTIN APRN.PLY BANDER Service: ? Author Type: Nurse Practitioner Type: Progress Notes Filed: 03/31/2024 07:51 Note Text: CC: Patient presents with: Recheck: 6 month follow up HPI Phyllis Sanchez is a 73 year old female who presents today for routine follow up and has been experiencing higher blood pressures. Elevated Blood Pressure: Ms. Sanchez indicates that she is feeling well and denies any symptoms referable to elevated blood pressure. Specifically denies headache, chest pain, palpitations, dyspnea, and peripheral edema. Patient denies any side effects of her medication(s) and is compliant with their regimen. She does not check BP's generally. Phyllis denies regular aerobic exercise but stays active throughout the day cleaning and working around house. She watches her diet for sodium, low fat and low cholesterol most of the time. Last 3 Encounter BP Readings: Date: BP: 03/31/2024 140/88 02/22/2024 132/72 02/05/2024 130/82 12/02/2023 134/84 REVIEW OF SYSTEMS See HPI PAST MEDICAL HISTORY Diagnosis Date Chronic left-sided low back pain without sciatica 05/22/2018 Closed fracture dislocation of multiple fingers 1986 right hand caught in conveyor belt Detached retina, left 2006 H/O ganglion cyst Seizure disorder (HCC) 1967 on medication in her teens. Off medication at age 19. PAST SURGICAL HISTORY Procedure Laterality Date COLONOSCOPY FLX DX W/COLLJ SPEC WHEN PFRMD 07/02/2018 Colonoscopy 10 yr interval ENDOSC BALLOON SINUPLASTY PAST SURGICAL HISTORY OF Right 04/28/2022 partially torn maniscus repair PAST SURGICAL HISTORY OF 10/27/2023 Total vaginal hysterectomy Possible bilateral salpingo-oophorectomy Uterosacral ligament suspension Anterior colporrhaphy Posterior colporrhaphy Perineorrhaphy Cystoscopy S MENISCAL REPAIR OUT/IN Left ALLERGIES Patient has no known allergies. MEDICATIONS alendronate (FOSAMAX) 35 mg tablet Take 1 tablet by mouth one time a week. estradiol (ESTRACE) 0.01 % (0.1 mg/gram) vaginal cream apply one gram or soybean sized amount over the vaginal opening every night for 2 weeks then 2 evenings per week fluticasone (FLONASE) 50 mcg/actuation nasal spray Use 2 Sprays in each nostril once daily. Rinse mouth after use. vit C/E/cuperic/zinc/lutein (PRESERVISION LUTEIN ORAL) Take by mouth twice daily. cyanocobalamin (VITAMIN B-12) 1,000 mcg tab Take 1 tablet by mouth once daily. calcium carbonate (CALCIUM 600) 600 mg calcium (1,500 mg) tab Take 0.5 tablets by mouth once daily. FAMILY HISTORY Problem Relation Age of Onset Coronary Artery Disease Mother Ischemic Heart Disease Mother Stroke Mother other (Other) Father CO poisoning at factory Heart Sister heart murmur Cancer Brother Throat cancer Autism Brother other (lung) Brother pneumonia Diabetes Maternal Grandmother No Known Problems Daughter No Known Problems Son No Known Problems Son Breast Cancer Maternal Aunt Social History Tobacco Use Smoking status: Former Current packs/day: 0.00 Average packs/day: 1 pack/day for 11.0 years (11.0 ttl pk-yrs) Types: Cigarettes Start date: 05/18/1973 Quit date: 05/18/1984 Years since quittin.8 Smokeless tobacco: Never Vaping Use Vaping status: Never Used Substance Use Topics Alcohol use: Yes Comment: 1-2 glasses a few times a week Drug use: No PHYSICAL EXAM Resp 16 Wt 47.2 kg (104 lb) BMI 19.65 kg/m? General Appearance: well appearing, in no acute distress, alert Eyes: conjunctiva pink and moist, no icterus, sclera white, non-injected Lungs: Lungs clear to auscultation. No wheezing, rhonchi, rales. Heart: RRR without murmur, gallop, or rubs. No ectopy Health maintenance reviewed with patient: DTaP,Tdap,Td Vaccine(1 - Tdap) due on 09/27/2024 Depression Screening due on 09/27/2024 Anxiety Screening due on 09/27/2024 Mammogram Screening due on 03/08/2025 Bone Density Screening due on 09/30/2025 Diabetes Screening due on 09/27/2026 Colorectal Cancer Screening due on 07/02/2028 Lipid Screening due on 09/27/2028 Influenza Vaccine Completed Advance Directive Discussion Completed RSV Vaccine Completed Shingrix Vaccine Completed Covid-19 Vaccine Completed Pneumococcal Vaccine: 65+ Completed Hepatitis C Screening Discontinued DATA REVIEWED: Most recent labs from [facility] ASSESSMENT/PLAN: 1. Elevated blood pressure reading - ICD9: 796.2, ICD10: R03.0 (primary diagnosis) - Encouraged dietary sodium restriction/DASH diet - Recommended regular aerobic exercise. - Recommend home blood pressure monitoring, to bring results in on next visit - Recheck in 2 week, sooner if needed. - Goal of BP <130/80 2. Genitourinary syndrome of menopause - ICD9: 627.8, ICD10: N95.8 Not discussed today, refill needed. - ESTRADIOL 0.01% (0.1 MG/GRAM) VAGINAL CREAM Prescription instructions reviewed with patient as applicable. Potential red flag sympt (more content not included)...[facility]11-14-2024 History of Present illness Narrative* Christina Martin APRN.PLY BANDER - 03/31/2024 7:21 AM EST CC: Patient presents with: Recheck: 6 month follow up HPI Phyllis Sanchez is a 73 year old female who presents today for routine follow up and has been experiencing higher blood pressures. Elevated Blood Pressure: Ms. Sanchez indicates that she is feeling well and denies any symptoms referable to elevated blood pressure. Specifically denies headache, chest pain, palpitations, dyspnea, and peripheral edema. Patient denies any side effects of her medication(s) and is compliant with theirregimen. She does not check BP's generally. Phyllis denies regular aerobic exercise but stays active throughout the day cleaning and working around house. She watches her diet for sodium, low fat and low cholesterol most of the time. Last 3 Encounter BP Readings: Date: BP: 03/31/2024 140/88 02/22/2024 132/72 02/05/2024 130/82 12/02/2023 134/84 REVIEW OF SYSTEMS See HPI PAST MEDICAL HISTORY Diagnosis Date Chronic left-sided low back pain without sciatica 05/22/2018 Closed fracture dislocation of multiple fingers 1986 right hand caught in conveyor belt Detached retina, left 2005 H/O ganglion cyst Seizure disorder (HCC) 1967 on medication in her teens. Off medication at age 19. PAST SURGICAL HISTORY Procedure Laterality Date COLONOSCOPY FLX DX W/COLLJ SPEC WHEN PFRMD 07/02/2018 Colonoscopy 10 yr interval ENDOSC BALLOON SINUPLASTY PAST SURGICAL HISTORY OF Right 04/28/2022 partially torn maniscus repair PAST SURGICAL HISTORY OF 10/27/2023 Total vaginal hysterectomy Possible bilateral salpingo-oophorectomy Uterosacral ligament suspensionAnterior colporrhaphy Posterior colporrhaphy Perineorrhaphy Cystoscopy S MENISCAL REPAIR OUT/IN Left ALLERGIES Patient has no known allergies. MEDICATIONS alendronate (FOSAMAX) 35 mg tablet Take 1 tablet by mouth one time a week. estradiol (ESTRACE) 0.01 % (0.1 mg/gram) vaginal cream apply one gram or soybean sized amount over the vaginal opening every night for 2 weeks then 2 evenings per week fluticasone (FLONASE) 50 mcg/actuation nasal spray Use 2 Sprays in each nostril once daily. Rinse mouth after use. vit C/E/cuperic/zinc/lutein (PRESERVISION LUTEIN ORAL) Take by mouth twice daily. cyanocobalamin (VITAMIN B-12) 1,000 mcg tab Take 1 tablet by mouth once daily. calcium carbonate (CALCIUM 600) 600 mg calcium (1,500 mg) tab Take 0.5 tablets by mouth once daily. FAMILY HISTORY Problem Relation Age of Onset Coronary Artery Disease Mother Ischemic Heart Disease Mother Stroke Mother other (Other) Father CO poisoning at factory Heart Sister heart murmur Cancer Brother Throat cancer Autism Brother other (lung) Brother pneumonia Diabetes Maternal Grandmother No Known Problems Daughter No Known Problems Son No Known Problems Son Breast Cancer Maternal Aunt Social History Tobacco Use Smoking status: Former Current packs/day: 0.00 Average packs/day: 1 pack/day for 11.0 years (11.0 ttl pk-yrs) Types: Cigarettes Start date: 05/18/1973 Quit date: 05/18/1984 Years since quittin.8 Smokeless tobacco: Never Vaping Use Vaping status: Never Used Substance Use Topics Alcohol use: Yes Comment: 1-2 glasses a few times a week Drug use: No PHYSICAL EXAM Resp 16 Wt 47.2 kg (104 lb) BMI 19.65 kg/m General Appearance: well appearing, in no acute distress, alert Eyes: conjunctiva pink and moist, no icterus, sclera white, non-injected Lungs: Lungs clear to auscultation. No wheezing, rhonchi, rales. Heart: RRR without murmur, gallop, or rubs. No ectopy Health maintenance reviewed with patient: DTaP,Tdap,Td Vaccine(1 - Tdap) due on 09/27/2024 Depression Screening due on 09/27/2024 Anxiety Screening due on 09/27/2024 Mammogram Screening due on 03/08/2025 Bone Density Screening due on 09/30/2025 Diabetes Screening due on 09/27/2026 Colorectal Cancer Screening due on 07/02/2028 Lipid Screening due on 09/27/2028 Influenza Vaccine Completed Advance Directive Discussion Completed RSV Vaccine Completed Shingrix Vaccine Completed Covid-19 Vaccine Completed Pneumococcal Vaccine: 65+ Completed Hepatitis C Screening Discontinued DATA REVIEWED: Most recent labs from [facility] ASSESSMENT/PLAN: 1. Elevated blood pressure reading - ICD9: 796.2, ICD10: R03.0 (primary diagnosis) - Encouraged dietary sodium restriction/DASH diet - Recommended regular aerobic exercise. - Recommend home blood pressure monitoring, to bring results in on next visit - Recheck in 2 week, sooner if needed. - Goal of BP <130/80 2. Genitourinary syndrome of menopause - ICD9: 627.8, ICD10: N95.8 Not discussed today, refill needed. - ESTRADIOL 0.01% (0.1 MG/GRAM) VAGINAL CREAM Prescription instructions reviewed with patient as applicable. Potential red flag symptoms discussed with the patient. Reviewed appropriate action plan to take if red flag symptoms occur. Patient agreeable to treatment plan. Christina Martin APRN.RAS [facility] Telephone encounter Note * Telephone Encounter - Elizabeth Tomas RN - 03/23/2024 2:56 PM EST Hi! Can you please call this patient to see how she is doing 1 month status post bulkamid injections? If she is doing well, she should follow up with me in October 2024 for 1y postop check. If she is not happy with results, please schedule her for an appointment. Thanks! Michael Manzanares MD Pt s/p Bulkamid on 02/[address] Manzanares Called pt and verified name/. She denies any symptoms of JEMIMA as well as urinary retention. She wanted to make a follow up appointment for October of 2024. She accepted 10/[address] Manzanares. Appt held. Sending to WP to add pt on. Elizabeth Tomas RN March 23, 2024 3:04 PM [facility]11-06-20[facility] Miscellaneous Notes* Telephone Encounter - Elizabeth Tomas RN - 03/23/2024 2:56 PM EST Hi! Can you please call this patient to see how she is doing 1 month status post bulkamid injections? If she is doing well, she should follow up with me in October 2024 for 1y postop check. If she is not happy with results, please schedule her for an appointment. Thanks! Michael Manzanares MD Pt s/p Bulkamid on 02/[address] Manzanares Called pt and verified name/. She denies any symptoms of JEMIMA as well as urinary retention. She wanted to make a follow up appointment for October of 2024. She accepted 10/[address] Manzanares. Appt held. Sending to WP to add pt on. Elizabeth Tomas RN March 23, 2024 3:04 PM [facility]10[facility] History of Present illness Narrative* Waleska Kelly Mammo Tech - 03/08/2024 7:30 AM EDT Radiology Service Progress Note PATIENT NAME: Phyllis Sanchez DATE OF SERVICE: March 08, 2024 TIME: 8:15 AM PATIENT IDENTITY VERIFICATION COMPLETED USING TWO (2) IDENTIFIERS: Name and Date of confirmedby patient verbally. FALL SCREENING: Has the patient had 2 falls in the last year or 1 fall with injury or currently using an Ambulatory Assistive Device (Walker, Cane, Wheelchair, Crutches, etc.)? No PATIENT GENDER DATA: Female. status: : No status: NO. PATIENT RELEVANT IMPLANT DATA REVIEWED: Not Applicable PATIENT PRESENTS WITH AN IMPLANTABLE OR ATTACHED SOLE BUFFER: No RADIOLOGY DEPARTMENT: Mammography PERIPHERAL IV DATA: Not applicable SIGNED BY: Silvestre Nicholas March 08, 2024 8:15 AM documented in [facility] encounter[facility]10-[facility]-2024 NoteHNO ID: [id number] Author: WALESKA KELLY Mammo Tech Service: ? Author Type: Campaign Advisor Type: Progress Notes Filed: 03/08/2024 08:15 Note Text: Radiology Service Progress Note PATIENT NAME: Phyllis Sanchez DATE OF SERVICE: March 08, 2024 TIME: 8:15 AM PATIENT IDENTITY VERIFICATION COMPLETED USING TWO (2) IDENTIFIERS: Name and Date of confirmed by patient verbally. FALL SCREENING: Has the patient had 2 falls in the last year or 1 fall with injury or currently using an Ambulatory Assistive Device (Walker, Cane, Wheelchair, Crutches, etc.)? No PATIENT GENDER DATA: Female. status: : No status: NO. PATIENT RELEVANT IMPLANT DATA REVIEWED: Not Applicable PATIENT PRESENTS WITH AN IMPLANTABLE OR ATTACHED SOLE BUFFER: No RADIOLOGY DEPARTMENT: Mammography PERIPHERAL IV DATA: Not applicable SIGNED BY: Silvestre Nicholas March 08, 2024 8:15 [facility]10-07-2024 NoteHNO ID: [id number] Author: MICHAEL MANZANARES MD Service: ? Author Type: Physician Type: Progress Notes Filed: 02/22/2024 14:45 Note Text: Phyllis Sanchez presents today for a periurethral bulking injections with Bulkamid. Indication: JEMIMA, ISD UNIVERSAL PROTOCOL / SAFETY CHECKLIST Procedure to be Performed: periurethral bulking injections with Bulkamid Sign In: A Moment of CARE was completed. Personnel directly involved with the procedure wore the appropriate PPE (Personal Protective Equipment). Patient/Surrogate Stated/Verified: PATIENT VERIFIED(optional for EMERGENT procedures): Patient name, Date of , Relevant allergies, and The intended procedure Time Out Communication: Intended patient and procedure match the source documents. Consent documented and matches the intended procedure. Sign Out: SIGN OUT (optional for EMERGENT procedures): No specimen collected. All instruments, equipment, possible retained foreign bodies accounted for. Findings: Normal bladder mucosa. No evidence of inflammation, stones, neoplasia, bladder diverticulum, trabeculations, or other bladder abnormalities. The bladder trigone and ureteral orifices were seen and no abnormalities noted. Normal urethra without inflammation, diverticulum, or other abnormality. PROCEDURE: Indication: JEMIMA. The patient understands the RBA of Bulkamid, including but not limited to UTI, hematuria, urinary retention (dose dependent), treatment failure and transient weakness (rare). Brief description of procedure: After obtaining written informed consent, a time out was performed. The patient was placed in dorsal lithotomy position, then prepped and draped in the usual sterile fashion. 2% urethral lidocaine jelly was introduced into the urethra and allowed to take analgesic effect. Anesthesia: Intraurethral Lidocaine jelly 6 mL. Bulkamid injections: The bladder was drained with a straight catheter. The bulkamid scope was inserted and brief cystoscopy performed with findings above. The needle was advanced to the 2 cm marking and then drawn back to isela insertion point. The needle was retracted and then inserted parallel to urethral lumen and ~0.5 cc of bulkamid material was injected at 7 o'clock, 4 o'clock, 11 o'clock and 1 o'clock. At the end of the injections the urethral lumen was well coapted. A total of 0 cc of material was left (total injection 2.0 cc) Hemostasis was excellent. The patient tolerated the procedure well and was given an immediate dose of periprocedural antibiotics. There were no complications. Complications: none LOT: [id number] Exp: 2026-04-16 Procedure Summary: Patient tolerated procedure well. Medications: Prophylactic antibiotics Plan: Follow up 1 month for postop check via nurse phone call. If she's doing well plan for 1y postop in October 2024. If not can follow up for another visit. Michael Manzanares [facility]10-07-2024 History of Present illness Narrative* Michael Manzanares MD - 02/22/2024 2:06 PM EDT Phyllis Gilbert Daniel presents today for a periurethral bulking injections with Bulkamid. Indication: JEMIMA, ISD UNIVERSAL PROTOCOL / SAFETY CHECKLIST Procedure to be Performed: periurethral bulking injections with Bulkamid Sign In: A Moment of CARE was completed. Personnel directly involved with the procedure wore the appropriate PPE (Personal Protective Equipment). Patient/Surrogate Stated/Verified: PATIENT VERIFIED(optional for EMERGENT procedures): Patient name, Date of , Relevant allergies, and The intended procedure Time Out Communication: Intended patient and procedure match the source documents. Consent documented and matches the intended procedure. Sign Out: SIGN OUT (optional for EMERGENT procedures): No specimen collected. All instruments, equipment, possible retained foreign bodies accounted for. Findings: Normal bladder mucosa. No evidence of inflammation, stones, neoplasia, bladder diverticulum, trabeculations, or other bladder abnormalities. The bladder trigone and ureteral orifices were seen and no abnormalities noted. Normal urethra without inflammation, diverticulum, or other abnormality. PROCEDURE: Indication: JEMIMA. The patient understands the RBA of Bulkamid, including but not limited to UTI, hematuria, urinary retention (dose dependent), treatment failure and transient weakness (rare). Brief description of procedure: After obtaining written informed consent, a time out was performed. The patient was placed in dorsal lithotomy position, then prepped and draped in the usual sterile fashion. 2% urethral lidocaine jelly was introduced into the urethra and allowed to take analgesic effect. Anesthesia: Intraurethral Lidocaine jelly 6 mL. Bulkamid injections: The bladder was drained with a straight catheter. The bulkamid scope was inserted and brief cystoscopy performed with findings above. The needle was advanced to the 2 cm marking and then drawn back to isela insertion point. The needle was retracted and then inserted parallel to urethral lumen and ~0.5 cc of bulkamid material was injected at 7 o'clock, 4 o'clock, 11 o'clock and 1 o'clock. At the end of the injections the urethral lumen was well coapted. A total of 0 cc of material was left (total injection 2.0 cc) Hemostasis was excellent. The patient tolerated the procedure well and was given an immediate dose of periprocedural antibiotics. There were no complications. Complications: none LOT: [id number] Exp: 2026-04-16 Procedure Summary: Patient tolerated procedure well. Medications: Prophylactic antibiotics Plan: Follow up 1 month for postop check via nurse phone call. If she's doing well plan for 1y postop in October 2024. If not can follow up for another visit. Michael Manzanares MD [facility] Telephone encounter Note * Telephone Encounter - Elizabeth Tomas RN - 02/05/2024 3:39 PM EDT Bulkamid referral received -- 1st injection. Entered auth. Will monitor status. PPX antibiotics: Will need Blood thinners: None LV: 02/04 with Glenna ONOFRE - discussed bulkamid in the office vs MUS in the OR. She desires office bulamid. Consented. Recommend she take 1 tablet oxycodone prior to appt to help minimize discomfort of the procedure. F/u for Bulkamid Per Dr. Manzanares - she would like the patient scheduled for Bulkamid on 02/21. Sending to WP to reach out to pt and schedule. Elizabeth Tomas RN February 05, 2024 3:41 PM [facility] Miscellaneous Notes* Telephone Encounter - Elizabeth Tomas RN - 02/05/2024 3:39 PM EDT Bulkamid referral received -- 1st injection. Entered auth. Will monitor status. PPX antibiotics: Will need Blood thinners: None LV: 02/04 with Glnena ONOFRE - discussed bulkamid in the office vs MUS in the OR. She desires office bulamid. Consented. Recommend she take 1 tablet oxycodone prior to appt to help minimize discomfort of the procedure. F/u for Bulkamid Per Dr. Manzanares - she would like the patient scheduled for Bulkamid on 02/21. Sending to WP to reach out to pt and schedule. Elizabeth Tomas RN February 05, 2024 3:41 PM documented [facility] History of Present illness Narrative* Michael Manzanares MD - 02/05/2024 11:45 AM EDT Female Pelvic Medicine & Reconstructive Surgery Post-Op Visit Phyllis Sanchez is a 73 year old year old female who presents for a 3 Month post- op check s/p Transvaginal hysterectomy, Right salpingectomy , Uterosacral ligament suspension of the vaginal vault/intraperitoneal colpopexy, Anterior colporrhaphy, Perineorrhaphy, and Cystoscopy on 10/27/23. Post-op complications: no Bleeding: no Pain: no If you had pain related to your prolapse before surgery, has your pain resolved? Yes Abnormal vaginal discharge: no Still having some JEMIMA since surgery. Has noticed that she empties her bladder prior to activities so that she will leak less but it really bothers her. PFDI-20 Do you: Usually experience pressure in the lower abdomen? Yes, somewhat bothersome (2) Usually experience heaviness or dullness in the pelvic area? No (0) Usually have a bulge or something falling out that you can see or feel in your vaginal area? No (0) Ever have to push on the vagina or around the rectum to have or complete a bowel movement? No (0) Usually experience a feeling of incomplete bladder emptying? No (0) Ever have to push up on a bulge in the vaginal area with your fingers to start or complete urination? No (0) Feel you need to strain too hard to have a bowel movement? Yes, not at all bothersome (1) Feel you have not completely emptied your bowels at the end of a bowel movement? Yes, not at all bothersome (1) Usually lose stool beyond your control if your stool is well formed? Yes, not at all bothersome (1) Usually lose stool beyond your control if your stool is loose? Yes, somewhat bothersome (2) Usually lose gas from the rectum beyond your control? Yes, somewhat bothersome (2) Usually have pain when you pass your stool? Yes, not at all bothersome (1) Experience a strong sense of urgency and have to harley to the bathroom to have a bowel movement? Yes, somewhat bothersome (2) Does part of your bowel ever pass through the rectum and bulge outside during or after a bowel movement? Yes, not at all bothersome (1) Usually experience frequent urination? Yes, moderately bothersome (3) Usually experience urine leakage associated with a feeling of urgency, that is, a strong sensation of needing to go to the bathroom? Yes, somewhat bothersome (2) Usually experience urine leakage related to coughing, sneezing or laughing? Yes, quite a bit bothersome (4) Usually experience small amounts of urine leakage (that is, drops)? Yes, not at all bothersome (1) Usually experience difficulty emptying your bladder? Yes, not at all bothersome (1) Usually experience pain or discomfort in the lower abdomen or genital region? Yes, not at all bothersome (1) The sensitive examination was discussed with the Patient or Patient's Authorized Health Club Attendant. Asapplicable, any other physician, advance practice provider, medical student, or other health professional student that will be observing or involved in the sensitive examination for educational or training purposes was discussed with the Patient or Authorized Health Club Attendant. The Patient or Authorized Health Club Attendant has agreed to proceed with the sensitive examination. (Sensitive examination includes inspection and/or palpation of the breasts, pelvis, prostate and anorectal regions) Body And Fender Mechanic Apprentice declined. OBJECTIVE: BP 130/82 Ht 154.9 cm (5' 1) Wt 45.4 kg (100 lb) BMI 18.89 kg/m General Appearance: Appears stated age, comfortable, No acute distress Abdomen: Benign, soft, non-tender, no hernia, masses. Pelvic examination: Vulva/Perineum: Normal development, no lesions, perineal incision well healed Urethral Meatus:Normal location and size, no lesions, hypermobility Urethra: No masses, tenderness or scarring Bladder:No masses, no tenderness Vagina: Good vaginal support, suture material present, incision healing well,and atrophic Cervix: surgically absent Uterus: surgical absent Adnexa:No masses, tenderness or nodularity ASSESMENT: Phyllis Sanchez is a 73 year old year old female who is post-op; stable and doing well post-operative course uncomplicated PLAN: - No restrictions JEMIMA - discussed bulkamid in the office vs MUS in the OR. She desires office bulamid. Consented. Recommend she take 1 tablet oxycodone prior to appt to help minimize discomfort of the procedure. F/u for Bulkamid Michael Manzanares MD documented in this encounterCleveland [id number] NoteHNO ID: [id number] Author: MICHAEL MANZANARES MD Service: ? Author Type: Physician Type: Progress Notes Filed: 02/05/2024 13:25 Note Text: Female Pelvic Medicine AND Reconstructive Surgery Post-Op Visit Phyllis Sanchez is a 73 year old year old female who presents for a 3 Month post-op check s/p Transvaginal hysterectomy, Right salpingectomy , Uterosacral ligament suspension of the vaginal vault/intraperitoneal colpopexy, Anterior colporrhaphy, Perineorrhaphy, and Cystoscopy on 10/27/23. Post-op complications: no Bleeding: no Pain: no If you had pain related to your prolapse before surgery, has your pain resolved? Yes Abnormal vaginal discharge: no Still having some JEMIMA since surgery. Has noticed that she empties her bladder prior to activities so that she will leak less but it really bothers her. PFDI-20 Do you: Usually experience pressure in the lower abdomen? Yes, somewhat bothersome (2) Usually experience heaviness or dullness in the pelvic area? No (0) Usually have a bulge or something falling out that you can see or feel in your vaginal area? No (0) Ever have to push on the vagina or around the rectum to have or complete a bowel movement? No (0) Usually experience a feeling of incomplete bladder emptying? No (0) Ever have to push up on a bulge in the vaginal area with your fingers to start or complete urination? No (0) Feel you need to strain too hard to have a bowel movement? Yes, not at all bothersome (1) Feel you have not completely emptied your bowels at the end of a bowel movement? Yes, not at all bothersome (1) Usually lose stool beyond your control if your stool is well formed? Yes, not at all bothersome (1) Usually lose stool beyond your control if your stool is loose? Yes, somewhat bothersome (2) Usually lose gas from the rectum beyond your control? Yes, somewhat bothersome (2) Usually have pain when you pass your stool? Yes, not at all bothersome (1) Experience a strong sense of urgency and have to harley to the bathroom to have a bowel movement? Yes, somewhat bothersome (2) Does part of your bowel ever pass through the rectum and bulge outside during or after a bowel movement? Yes, not at all bothersome (1) Usually experience frequent urination? Yes, moderately bothersome (3) Usually experience urine leakage associated with a feeling of urgency, that is, a strong sensation of needing to go to the bathroom? Yes, somewhat bothersome (2) Usually experience urine leakage related to coughing, sneezing or laughing? Yes, quite a bit bothersome (4) Usually experience small amounts of urine leakage (that is, drops)? Yes, not at all bothersome (1) Usually experience difficulty emptying your bladder? Yes, not at all bothersome (1) Usually experience pain or discomfort in the lower abdomen or genital region? Yes, not at all bothersome (1) The sensitive examination was discussed with the Patient or Patient's Authorized Health Club Attendant. As applicable, any other physician, advance practice provider, medical student, or other health professional student that will be observing or involved in the sensitive examination for educational or training purposes was discussed with the Patient or Authorized Health Club Attendant. The Patient or Authorized Health Club Attendant has agreed to proceed with the sensitive examination. (Sensitive examination includes inspection and/or palpation of the breasts, pelvis, prostate and anorectal regions) Body And Fender Mechanic Apprentice declined. OBJECTIVE: BP 130/82 Ht 154.9 cm (5' 1) Wt 45.4 kg (100 lb) BMI 18.89 kg/m? General Appearance: Appears stated age, comfortable, No acute distress Abdomen: Benign, soft, non-tender, no hernia, masses. Pelvic examination: Vulva/Perineum: Normal development, no lesions, perineal incision well healed Urethral Meatus:Normal location and size, no lesions, hypermobility Urethra: No masses, tenderness or scarring Bladder:No masses, no tenderness Vagina: Good vaginal support, suture material present, incision healing well,and atrophic Cervix: surgically absent Uterus: surgical absent Adnexa:No masses, tenderness or nodularity ASSESMENT: Phyllis Sanchez is a 73 year old year old female who is post-op; stable and doing well post-operative course uncomplicated PLAN: - No restrictions JEMIMA - discussed bulkamid in the office vs MUS in the OR. She desires office bulamid. Consented. Recommend she take 1 tablet oxycodone prior to appt to help minimize discomfort of the procedure. F/u for Bulkamid Michael Manzanares, [facility]09-12-2024 Telephone encounter Note* Telephone Encounter - Jolanta Navarrete RN - 01/28/2024 9:16 AM EDT The patient has been identified by name and date of : Yes Caregiver verified no other encounters exist for this prescription request: Yes Caregiver confirmed with patient/requestor that no other refills are due, in the near future, with this provider at this time: Yes The last office visit in the department: 09/28/2023 Does the patient have a future office visit with this provider/department: 03/31/2024 Requested Prescriptions Pending Prescriptions Disp Refills alendronate (FOSAMAX) 35 mg tablet 12 tablet 3 Sig: Take 1 tablet by mouth one time a week. Jolanta Navarrete RN January 28, 2024 9:17 AM [facility]09-12-2024 Miscellaneous Notes* Telephone Encounter - Jolanta Navarrete RN - 01/28/2024 9:16 AM EDT The patient has been identified by name and date of : Yes Caregiver verified no other encounters exist for this prescription request: Yes Caregiver confirmed with patient/requestor that no other refills are due, in the near future, with this provider at this time: Yes The last office visit in the department: 09/28/2023 Does the patient have a future office visit with this provider/department: 03/31/2024 Requested Prescriptions Pending Prescriptions Disp Refills alendronate (FOSAMAX) 35 mg tablet 12 tablet 3 Sig: Take 1 tablet by mouth one time a week. Jolanta Navarrete RN January 28, 2024 9:17 AM documented in this encounterMi[facility]07-17-[facility]24 Instructions* Patient Instructions* Michael Manzanares MD - 12/02/2023 10:53 AM EDT If you still have significant leaking, before next visit please perform pyridium pad test: Get AZO (pyridium, aka phenozpyradine) tablets at [facility] Take 2 tabs Over the course of several hours (6-12 hours) - if there is orange on the pad, let me know documented in this encounterMi[facility]07-17-[facility]24 History of Present illness Narrative* Michael Manzanares MD - 12/02/2023 10:30 AM EDT Female Pelvic Medicine & Reconstructive Surgery Post-Op Visit Phyllis Sanchez is a 72 year old year old female who presents for a 4 Week post-op check s/p Procedure(s): Transvaginal hysterectomy, Right salpingectomy , Uterosacral ligament suspension of the vaginal vault/intraperitoneal colpopexy, Anterior colporrhaphy, Perineorrhaphy, and Cystoscopy Anesthesia: General Findings: - Stage 3 Uterovaginal prolapse, Stage 3 cystocele, Stage 2 rectocele - Normal appearing uterus and cervix - Normal fallopian tubes and ovaries bilaterally - Normal 360 degree cysto without evidence of trauma, suture, or foreign body seen; ureteral orifice efflux seen bilaterally; urethra within normal limits -Vaginal sweep was negative -Rectal exam confirms no suture material in the rectum - 2 cc of PRP injected at bilateral uterosacral stitch sites Post-op complications: yes urinary retention requiring allen catheter, passed VT on POD#3. She states she is leaking urine with cough/sneeze. Bleeding: no Pain: no If you had pain related to your prolapse before surgery, has your pain resolved? Not Applicable Abnormal vaginal discharge: no Pathology: FINAL DIAGNOSIS A. Uterus and cervix, vaginal hysterectomy -Cervix: No significant pathologic abnormality -Endometrium: Benign inactive endometrium -Myometrium: No significant pathologic abnormality -Serosa: No significant pathologic abnormality B. Fallopian tube, right, salpingectomy -Fimbriated fallopian tube with no significant pathologic abnormality She is happy to not have a bulge! PFDI-20 Do you: Usually experience pressure in the lower abdomen? No (0) Usually experience heaviness or dullness in the pelvic area? No (0) Usually have a bulge or something falling out that you can see or feel in your vaginal area? No (0) Ever have to push on the vagina or around the rectum to have or complete a bowel movement? No (0) Usually experience a feeling of incomplete bladder emptying? No (0) Ever have to push up on a bulge in the vaginal area with your fingers to start or complete urination? No (0) Feel you need to strain too hard to have a bowel movement? Yes, not at all bothersome (1) Feel you have not completely emptied your bowels at the end of a bowel movement? Yes, somewhat bothersome (2) Usually lose stool beyond your control if your stool is well formed? No (0) Usually lose stool beyond your control if your stool is loose? Yes, not at all bothersome (1) Usually lose gas from the rectum beyond your control? Yes, somewhat bothersome (2) Usually have pain when you pass your stool? No (0) Experience a strong sense of urgency and have to harley to the bathroom to have a bowel movement? Yes, not at all bothersome (1) Does part of your bowel ever pass through the rectum and bulge outside during or after a bowel movement? No (0) Usually experience frequent urination? Yes, not at all bothersome (1) Usually experience urine leakage associated with a feeling of urgency, that is, a strong sensation of needing to go to the bathroom? Yes, somewhat bothersome (2) Usually experience urine leakage related to coughing, sneezing or laughing? Yes, quite a bit bothersome (4) Usually experience small amounts of urine leakage (that is, drops)? Yes, quite a bit bothersome (4) Usually experience difficulty emptying your bladder? No (0) Usually experience pain or discomfort in the lower abdomen or genital region? No (0) Overall, how satisfied were you with your postoperative pain medication? Very satisfied With regard to your expectations before surgery, did you have the amount of pain you expected, morepain, or less pain? About the amount of pain I expected Was the preoperative teaching you had about pain expectations helpful? Yes Were the discharge instructions you received about pain medications helpful? Yes Body And Fender Mechanic Apprentice offered, exam chaperoned by Tanya Kamara RN OBJECTIVE: BP 134/84 Pulse 87 General Appearance: Appears stated age, comfortable, No acute distress Abdomen: Benign, soft, non-tender, no hernia, masses. Pelvic examination: Vulva/Perineum: Normal development, no lesions, perineal incision healing well Urethral Meatus:Normal location and size, no lesions Urethra: No masses, tenderness or scarring Bladder:No masses, no tenderness Vagina: Good vaginal support, suture material present, incision healing well, and atrophic Cervix: surgically absent Uterus: surgical absent Adnexa:No masses, tenderness or nodularity NEG EBCST ASSESMENT: Phyllis Sanchez is a 72 year old year old female who is post-op; stable and doing well post-operative course uncomplicated PLAN: - May resume normal activities - No lifting restrictions - May resume intercourse in 4 weeks. - Regarding JEMIMA, discussed observation during 3mo postop period, but if sx persist by next postop visit, can consider bulking vs MUS. She would lean towards office bulking. - If sx persist, recommend at home pyridium pad test prior to next appt and she will let me know results at the visit - Follow up for 3 month postop visit, then at 1 year, then can see primary OBGYN for usual annual exams. Michael Manzanares MD documented in this encounterMi[facility]07-17-2024 NoteHNO ID: [id number] Author: MICHAEL MANZANARES MD Service: ? Author Type: Physician Type: Progress Notes Filed: 12/02/2023 11:19 Note Text: Female Pelvic Medicine AND Reconstructive Surgery Post-Op Visit Phyllis Sanchez is a 72 year old year old female who presents for a 4 Week post-op check s/p Procedure(s): Transvaginal hysterectomy, Right salpingectomy , Uterosacral ligament suspension of the vaginal vault/intraperitoneal colpopexy, Anterior colporrhaphy, Perineorrhaphy, and Cystoscopy Anesthesia: General Findings: - Stage 3 Uterovaginal prolapse, Stage 3 cystocele, Stage 2 rectocele - Normal appearing uterus and cervix - Normal fallopian tubes and ovaries bilaterally - Normal 360 degree cysto without evidence of trauma, suture, or foreign body seen; ureteral orifice efflux seen bilaterally; urethra within normal limits -Vaginal sweep was negative -Rectal exam confirms no suture material in the rectum - 2 cc of PRP injected at bilateral uterosacral stitch sites Post-op complications: yes urinary retention requiring allen catheter, passed VT on POD#3. She states she is leaking urine with cough/sneeze. Bleeding: no Pain: no If you had pain related to your prolapse before surgery, has your pain resolved? Not Applicable Abnormal vaginal discharge: no Pathology: FINAL DIAGNOSIS A. Uterus and cervix, vaginal hysterectomy -Cervix: No significant pathologic abnormality -Endometrium: Benign inactive endometrium -Myometrium: No significant pathologic abnormality -Serosa: No significant pathologic abnormality B. Fallopian tube, right, salpingectomy -Fimbriated fallopian tube with no significant pathologic abnormality She is happy to not have a bulge! PFDI-20 Do you: Usually experience pressure in the lower abdomen? No (0) Usually experience heaviness or dullness in the pelvic area? No (0) Usually have a bulge or something falling out that you can see or feel in your vaginal area? No (0) Ever have to push on the vagina or around the rectum to have or complete a bowel movement? No (0) Usually experience a feeling of incomplete bladder emptying? No (0) Ever have to push up on a bulge in the vaginal area with your fingers to start or complete urination? No (0) Feel you need to strain too hard to have a bowel movement? Yes, not at all bothersome (1) Feel you have not completely emptied your bowels at the end of a bowel movement? Yes, somewhat bothersome (2) Usually lose stool beyond your control if your stool is well formed? No (0) Usually lose stool beyond your control if your stool is loose? Yes, not at all bothersome (1) Usually lose gas from the rectum beyond your control? Yes, somewhat bothersome (2) Usually have pain when you pass your stool? No (0) Experience a strong sense of urgency and have to harley to the bathroom to have a bowel movement? Yes, not at all bothersome (1) Does part of your bowel ever pass through the rectum and bulge outside during or after a bowel movement? No (0) Usually experience frequent urination? Yes, not at all bothersome (1) Usually experience urine leakage associated with a feeling of urgency, that is, a strong sensation of needing to go to the bathroom? Yes, somewhat bothersome (2) Usually experience urine leakage related to coughing, sneezing or laughing? Yes, quite a bit bothersome (4) Usually experience small amounts of urine leakage (that is, drops)? Yes, quite a bit bothersome (4) Usually experience difficulty emptying your bladder? No (0) Usually experience pain or discomfort in the lower abdomen or genital region? No (0) Overall, how satisfied were you with your postoperative pain medication? Very satisfied With regard to your expectations before surgery, did you have the amount of pain you expected, more pain, or less pain? About the amount of pain I expected Was the preoperative teaching you had about pain expectations helpful? Yes Were the discharge instructions you received about pain medications helpful? Yes Body And Fender Mechanic Apprentice offered, exam chaperoned by Tanya Kamara RN OBJECTIVE: BP 134/84 Pulse 87 General Appearance: Appears stated age, comfortable, No acute distress Abdomen: Benign, soft, non-tender, no hernia, masses. Pelvic examination: Vulva/Perineum: Normal development, no lesions, perineal incision healing well Urethral Meatus:Normal location and size, no lesions Urethra: No masses, tenderness or scarring Bladder:No masses, no tenderness Vagina: Good vaginal support, suture material present, incision healing well, and atrophic Cervix: surgically absent Uterus: surgical absent Adnexa:No masses, tenderness or nodularity NEG EBCST ASSESMENT: Phyllis Sanchez is a 72 year old year old female who is post-op; stable and doing well post-operative course uncomplicated PLAN: - May resume normal activities - No lifting restrictions - May resume intercourse in 4 weeks. - Regar (more content not included)...[facility]06-14-2024 History of Present illness Narrative* Jaye Randolph, HUNTER - 10/30/2023 10:17 AM EDT Patient here for trial voiding. Bladder filled with 300 cc's of Sterile Water. Catheter removed. Patient was able to void. Dr. Bañuelos notified. Catheter: Not reinserted.. URINE POC GLUCOSE UA (POCT) Negative 10/30/2023 BILIRUBIN UA (POCT) Negative 10/30/2023 KETONE UA (POCT) Negative 10/30/2023 SPECIFIC GRAVITY UA (POCT) 1.015 10/30/2023 HEMOGLOBIN/BLOOD UA (POCT) Large 10/30/2023 PH UA (POCT) 8.0 10/30/2023 PROTEIN UA (POCT) Negative 10/30/2023 UROBILINOGEN UA (POCT) 0.2 10/30/2023 NITRITE UA (POCT) Negative 10/30/2023 LEUKOCYTES UA (POCT) Negative 10/30/2023 COLOR UA (POCT) Yellow 10/30/2023 CLARITY UA (POCT) Clear 10/30/2023 Jaye Randolph RN [facility] NoteHNO ID: [id number] Author: ZACHARY NGUYEN MD Service: ? Author Type: Fellow Type: Progress Notes Filed: 10/27/2023 12:03 Note Text: INTRAOPERATIVE RESEARCH NOTE: Study: Platelet-Rich Plasma (PRP) Injections in Patients Desiring Uterosacral Ligament Suspension Surgery for Prolapse: A Feasibility Study IRB # [id number] Patient STUDY ID NUMBER: 12 Date of Surgery: 10/27/2023 Completed [facility] Conf[facility]: Yes Research Study Personnel Name: Zachary Nguyen MD PRP information: Amount of blood volume collected from patient: 10 mL Total amount of PRP supernatant available after centrifuge: 6 mL Two mL of PRP supernatant injected into the RIGHT uterosacral ligament: Yes Two mL of PRP supernatant injected into the LEFT uterosacral ligament: Yes RegenKit: Lot Number: [id number] Expiration date: 2025-02-24 [facility] NoteHNO ID: [id number] Author: DIANE REYES APRN.CRNA Service: Anesthesiology Author Type: Nurse Donor Support Technician Type: Anesthesia Procedure Notes Filed: 10/27/2023 08:55 Note Text: ANESTHESIOLOGY PROCEDURE NOTE PIV General Information Procedure Start Time/Medication Administration: 10/27/2023 8:54 AM Procedure End Time: 10/27/2023 8:54 AM Patient Location: OR Staffing Anesthesiologist: Justino Henderson MD Performed by: anesthesiologist Preparation Sterility Preparation: hand hygiene performed prior to procedure Site Prep: alcohol Procedure Details Indication: need for IV access Needle Size/Type: 18 gauge angiocath Orientation: Right Location: Hand Imaging Guidance Used: No SIGNATURE: Diane Reyes APRN.CRNA PATIENT NAME: Phyllis Sanchez DATE: October 27, 2023 TIME: 8:54 AM CSN: [id number] NoteHNO ID: [id number] Author: DIANE REYES APRN.CRNA Service: Anesthesiology Author Type: Nurse Donor Support Technician Type: Anesthesia Procedure Notes Filed: 10/27/2023 08:14 Note Text: ANESTHESIOLOGY PROCEDURE NOTE Airway General Information Procedure Start Time/Medication Administration: 10/27/2023 7:45 AM Procedure End Time: 10/27/2023 7:48 AM Patient location during procedure: OR Timeout Performed Pre-procedure: timeout performed Patient identity confirmed: arm band and patient Staffing COMMUNICATIONS ATTENDANT: Diane Reyes APRN.COMMUNICATIONS ATTENDANT Performed by: ALVIN Indications and Patient Condition Indications for airway management: anesthesia Preoxygenated: yes anesthesia circuit Patient position: sniffing Method: sleep Difficult Mask: No Final Airway Details Final airway type: endotracheal airway Final Endotracheal Airway: ETT Cuffed: yes Successful intubation technique: video laryngoscopy Devices used: Meal Ticket Endotracheal tube insertion site: oral Blade size: #3 ETT size (mm): 6.5 Measured from: lips Measurement (cm): 20 Placement verified by: chest auscultation and capnometry Cormack-Lehane Classification: grade I - full view of glottis Number of attempts at approach: 1 Airway not difficult SIGNATURE: Diane Reyes APRN.CRNA PATIENT NAME: Phyllis Sanchez DATE: October 27, 2023 TIME: 8:14 AM CSN: [id number] Instructions* Patient Instructions* Maria Fernanda Miller APRN.PLY BANDER - 10/16/2023 1:09 PM EDT PATIENT PREOPERATIVE INSTRUCTIONS Michael Manzanares MD has scheduled you for your procedure at this surgery center: [facility]: [phone] - [address] [address]. Please read below carefully for your personalized instructions. Dietary Restrictions: Bowel preparation You will need one 10 oz bottle of Magnesium Citrate saline laxative Start the day prior to surgery Drink the Magnesium Citrate at 12:00 pm Continue with clear liquids for the rest of the day [clear broth, popsicles, Jell-O, coffee or tea (as long as there is no cream or milk added), Gatorade, Crystal light]. Nothing to eat or drink after midnight the night before surgery Medications: Unless instructed differently below, stay on all of your medications until your surgery. If you start any new medications after today's visit, please contact your surgeon. Pre-Surgery Med Instructions Medication Instructions estradiol (ESTRACE) 0.01 % (0.1 mg/gram) vaginal cream Do not take the day of surgery alendronate (FOSAMAX) 35 mg tablet Do not take the day of surgery fluticasone (FLONASE) 50 mcg/actuation nasal spray Take the day of surgery with a small sip of water vit C/E/cuperic/zinc/lutein (PRESERVISION LUTEIN ORAL) Stop 7 days before surgery cyanocobalamin (VITAMIN B-12) 1,000 mcg tab Stop 7 days before surgery calcium carbonate (CALCIUM 600) 600 mg calcium (1,500 mg) tab Stop 7 days before surgery If you start any new medications after today's visit, please contact the surgeon's office. Blood Thinning Medications: - Stop NSAIDS (Ibuprofen, Advil, Aleve, Motrin, Celebrex, Mobic, etc.) 7 days before surgery, as directed by your surgeon. - Stop Aspirin 7 days before surgery, as directed by your surgeon. - Stop Vitamin E, ALL multi-vitamins, herbals and dietary supplements 7 days before surgery. - You may take Tylenol (Acetaminophen) or any of your pain medications that do not contain aspirin or NSAIDS as needed. Important Reminders: - Candy, mints, and tobacco products are NOT permitted the morning of surgery. - Hearing aids, dentures and glasses may be worn the morning of surgery. - NO jewelry, body piercings, makeup, hairpins or contacts are to be worn the day of surgery. If you develop symptoms such as a fever, cold, or flu, or have other changes to your health within TWO DAYS of scheduled surgery or the morning of surgery, please contact the surgery center above. Personal Belongings: -Please have photo ID and insurance cards. -If you do not have a copy of advance directives on file with us, please bring a copy with you on the day of surgery. - Leave ALL valuables and money at home or with family members. For Outpatient Procedures: - YOU MUST HAVE A RESPONSIBLE AIRCRAFT LOADMASTER SUPERINTENDENT TAKE YOU HOME. A LIGHTING EQUIPMENT OPERATOR OR LEAD BLENDER CANNOT BE MADE A RESPONSIBLE AIRCRAFT LOADMASTER SUPERINTENDENT. - We recommend that a responsible person stays with you overnight to take care of you. - You cannot stay in a hotel alone after outpatient surgery. You will not be permitted to have yoursurgery, if you do not have someone to take care of you. Arrival Time for Surgery: -You will receive a call from [facility] the afternoon before surgery after 2:30 pm(or Thursday for Thursday surgery) for a scheduled arrival time. - If you have not heard by 4 pm, please contact [facility] at [phone]. Please be aware that emergency situations arise, which may delay or change your surgical time. If this happens, we will notify you as soon as possible and regret any inconvenience. If you already have an Advance Directive, please fax a copy to [phone] or email to for it to be added to your chart. If you do not have an Advance Directive, you can find the appropriate form and more information at [email or web address]. We recommend that youcomplete the Advance Directive form found on the website and bring it with you the day of your surgery. It can be witnessed and scanned into your chart that day. Maria Fernanda Miller APRN.CNP [facility] History and physical note * Maria Fernanda Miller APRN.CNP - 10/16/2023 1:06 PM EDT HISTORY AND PHYSICAL EXAMINATION SERVICE DATE: 10/16/2023 SERVICE TIME: 1:38 PM PRIMARY CARE PHYSICIAN: Murphy Cuevas MD Assessment Patient has the following medical conditions which may affect avelino-operative course: Chronic left-sided low back pain without sciatica Assessment: otc analgesics as needed Osteoporosis Assessment: Fosamax Solitary pulmonary nodule Assessment: per outside EMR, CXR 06/2021 with no mention RESULT: Lines, tubes, and devices: None. Lungs and pleura: Bilateral apical scarring. No consolidation. No lung mass. No pleural effusion. No pneumothorax. Cardiomediastinal silhouette: Normal cardiomediastinal silhouette. Bones and soft tissues: Unremarkable. Hx of seizure disorder Assessment: remote hx during her teens, no issues since Domínguez Activity Status Index: METS: Climb a flight of stairs or walk up a hill (5.50 METs) DASI Score: 5.5 Patient denies any chest pain or undue shortness of breath with the above physical activity. Clinical Frailty Scale: 3. Well, with treated comorbid disease STOP-Bang Score: Patient over 50 years old Denies snoring loudly Denies feeling tired, fatigued, or sleepy during the daytime Has not been observed to stop breathing or choking/gasping during sleep Denies having high blood pressure BMI less than or equal to 35 kg/m^2 Does not have a large neck Non-male patient STOP-Bang Score: 1 [id number] Score: Age: 65-74 Sex: female CHF history: No Hypertension history: No Vascular disease history: No Diabetes history: No [id number] Score: ARISCAT Score: Age: 51-80 Preoperative SpO2: >=96% Respiratory infection in the last month: No Preoperative anemia: Yes Surgical incision: peripheral Duration of surgery: >3 hrs Emergency procedure: No ARISCAT Score: 37 ANESTHESIA FINDINGS: Intubation History: No history of difficult intubation Significant Anesthesia Considerations: none Airway History: No history of difficult airway I - PHYSICAL EVALUATION AIRWAY Patient intubated: No. Tracheostomy tube not present Mallampati: I. TM distance: >3 FB. Neck ROM: full ROM without neurological symptoms. Mouth opening: adequate. Short neck: no. Thick neck: no Coulter present: no Lip Bite Test: I Microretrognathia/Micronagthia/Recessed Chin: No DENTAL Dental findings: teeth intact. II - ANESTHESIA PLAN Anesthetic Plan: other Beta Joesph Monitoring Plan Post Procedure Analgesic Plan Informed Consent Anesthetic risks, benefits, alternatives, personnel and consent discussed: yes. Patient / Responsible Alliance Party agrees to proceed: yes Patient / Surrogate agrees to blood products: blood products not planned Discussed the possibility of lip / dental damage: yes Prepared for Surgery: optimally prepared for surgery, pending [see comment]. labs CONSULTS: Patient does not require consults for optimization at this time Planned Anesthetic: other anesthesia choice The Following Tests/Procedures Have Been Initiated: No orders of the defined types were placed in this encounter. REASON FOR VISIT: Phyllis Sanchez is a 72 year old female who is scheduled for Procedure(s): COLPOPEXY VAGINAL VAULT SUSPENSION INTRA-PERITONEAL APPROACH (Bilateral) HYSTERECTOMY VAGINAL UTERUS 250G OR LESS REMOVAL TUBE(S) AND/OR OVARY(S) (N/A) COMBINED ANTERIOPOSTERIOR COLPORRHAPHY INCLUDING CYSTOURETHROSCOPY WHEN PERFORMED (N/A) PERINEOPLASTY, NON-OBSTETRICAL (N/A) at the request of Dr. Michael Manzanares for consultation. My final recommendation will be communicated back to the requesting physician by way of shared medical record or letter. Subjective The patient has the following: ACTIVE PROBLEM LIST Ddd (Degenerative Disc Disease), Lumbar Vitamin B12 Deficiency Solitary Pulmonary Nodule Osteoporosis Hx of Seizure Disorder COVID-19 Immunization Status Postponed - Covid-19 Vaccine () Postponed until 09/27/2024 09/28/2023 Postponed until 09/27/2024 by Christina Martin APRN.CNP (Declined at this time) 09/01/2022 Postponed until 09/02/2023 by Tatyana Cortez MA (Declined at this time) 03/26/2021 Imm Admin: COVID-19 original vaccine, full dose, monovalent (MODERNA) Only the first 3 history entries have been loaded, but more history exists. CHIEF COMPLAINT: Pre-op exam HPI: Phyllis Sanchez is a 72 year old seen for PAC due to scheduled above surgery because of uterovaginal prolpase. 07/29/2023, Dr. Michael Manzanares HISTORY OF PRESENT ILLNESS: She is interested in surgical repair of prolapse. She reports prolapse symptoms for at least 4 months. She has noticed a vaginal bulge that she couldsee and feel. She reports having pelvic pressure symptoms. She does manually reduce the bulge. She has not tried a pessary. She reports JEMIMA with coughing, laughing, and sneezing with full bladder. She reports UUI. She does not have symptoms of urinary urgency and frequency. She does feel that she empties her bladder completely. She has not tried overactive bladder medications. Daytime frequency: q1 hour in the morning after coffee, q2 hours in the afternoon Nocturia: 0 Fluid intake: 2 cups of coffee, and 8-12 oz of water daily in the morning, then sips on large waterbottle throughout the day. She denies a history of UTIs. Today she denies any dysuria or hematuria. She denies constipation, she has normal bowel movements although she had a CT performed for abdominal pain/bloating and was told she was full of stool. She reports fecal incontinence of liquid or very soft gas/stool. She does take fiber supplements to help with her constipation. She denies vaginal dryness. She does use vaginal estrogen. She is sexually active. She reports pain with intercourse occasionally. She denies a strong family history of breast and ovarian cancer. Medical and Symptom History: UPPER CUTTER OUT HISTORY: menopause at age 51, Denies hx of HRT, Denies hx of abnormal paps, last pap in 2018 normal, last mammogram 2022 OB History T3 L3 SAB1 IAB0 Ectopic0 Multiple0 Live Births0 Comment: 3 vaginal deliveries 4 grandchildren , x3 History of third or fourth degree laceration: had tear, unsure of degree Weight of largest baby: [id number] REVIEW OF SYSTEMS: General: No weight loss, malaise or fevers. Neurological: Positive for: seizures (remote childhood, no issues since). 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 Respiratory: Former smoker 1ppd/5 years, in her 20's. No history of current cough or dyspnea, or pneumonia in the past 6 weeks. No history of respiratory/pulmonary symptoms or problems. Cardiovascular: No history of HTN requiring medication, no history of angina, CHF, AL, cardiac surgery or stents. Denies rest pain, gangrene or revascularization/amputation for PVD. No history of cardiovascular symptoms or problems. GI: No history of GI symptoms or problems. No history of esophageal varices, recent ascites, or ETOH greater than 2 drinks per day. : See HPI. UPPER CUTTER OUT: See HPI. Endocrine: No history of diabetes. Has not taken steroids within the past 30 days. No history of endocrinological symptoms or problems. Hematology: No history of bleeding or clotting disorder. Patient is not taking anti-coagulation or platelet medications. No history of hematological symptoms or problems. Oncology: No history of CA metastasis, chemo within 30 days, or radiotherapy within 90 days. No history of oncological symptoms or problems. Psych: No history of psychiatric symptoms or problems. Musculoskeletal: +osteoporosis, on rx Positive for: back pain. Skin: Negative for lesions, rash and itching. PAST MEDICAL HISTORY Diagnosis Date Chronic left-sided low back pain without sciatica 05/22/2018 Closed fracture dislocation of multiple fingers 1986 right hand caught in conveyor belt Detached retina, left 2005 H/O ganglion cyst Seizure disorder (HCC) 1967 on medication in her teens. Off medication at age 19. PAST SURGICAL HISTORY Procedure Laterality Date COLONOSCOPY FLX DX W/COLLJ SPEC WHEN PFRMD 07/02/2018 Colonoscopy 10 yr interval ENDOSC BALLOON SINUPLASTY PAST SURGICAL HISTORY OF Right 04/28/2022 partially torn maniscus repair S MENISCAL REPAIR OUT/IN Left FAMILY HISTORY Problem Relation Age of Onset Coronary Artery Disease Mother Ischemic Heart Disease Mother Stroke Mother other (Other) Father CO poisoning at factory Heart Sister heart murmur Cancer Brother Throat cancer Autism Brother other (lung) Brother pneumonia Diabetes Maternal Grandmother No Known Problems Daughter No Known Problems Son No Known Problems Son Breast Cancer Maternal Aunt Social History Tobacco Use Smoking status: Former Packs/day: 1.00 Years: 9.00 Additional pack years: 0.00 Total pack years: 9.00 Types: Cigarettes Start date: 05/18/1973 Quit date: 05/18/1984 Years since quittin.4 Smokeless tobacco: Never Vaping Use Vaping Use: Never used Substance Use Topics Alcohol use: Yes Comment: 1-2 glasses a few times a week Drug use: No Prior to Admission medications as of 10/16/23 1327 Medication Sig Last Dose Taking estradiol (ESTRACE) 0.01 % (0.1 mg/gram) vaginal cream apply one gram or soybean sized amount over the vaginal opening every night for 2 weeks then 2 evenings per week Taking Yes alendronate (FOSAMAX) 35 mg tablet Take 1 tablet by mouth one time a week. Taking Yes fluticasone (FLONASE) 50 mcg/actuation nasal spray Use 2 Sprays in each nostril once daily. Rinse mouth after use. Taking Yes vit C/E/cuperic/zinc/lutein (PRESERVISION LUTEIN ORAL) Take by mouth twice daily. Taking Yes cyanocobalamin (VITAMIN B-12) 1,000 mcg tab Take 1 tablet by mouth once daily. Taking Yes calcium carbonate (CALCIUM 600) 600 mg calcium (1,500 mg) tab Take 0.5 tablets by mouth once daily.Taking Yes No medication comments found. ALLERGIES No Known Allergies Objective PHYSICAL EXAM: General: alert and oriented (x3) and healthy appearance. Pertinent negatives noted - not distressed. Skin: normal color, no rash or lesions. HEENT: EOM intact and pupils equal round. Pertinent negatives noted - no carotid bruit. Cardiovascular: regular rate and rhythm, normal S1 and S2, no rub, murmurs, or gallop. Respiratory: normal breath sounds, no wheezes or crackles. No chest wall deformity or tenderness. Abdomen: soft. Pertinent negatives noted - not tender. Extremities: no deformity, no edema or tenderness, no joint swelling or clubbing. Neurological: normal cognition and motor skills. Gait normal. No weakness or sensory deficit. PAIN ASSESSMENT: VITALS: BP 136/88 Pulse 85 Temp (Src) 98.4 (Temporal) Resp 14 Ht 5' .5 (1.54m) Wt 102 lb (46.3kg) SpO2 98% BMI 19.59 kg/(m^2). Diagnostic tests reviewed for today's visit: Lab Value Units Date High Low HB No results within date range. HCT No results within date range. WBC No results within date range. PLT No results within date range. NA 142 mmol/L 09/28/2023 144 136 K 4.6 mmol/L 09/28/2023 5.1 3.7 GLUC 88 mg/dL 09/28/2023 99 74 BUN 11 mg/dL 09/28/2023 21 7 CREAT 0.57 mg/dL 09/28/2023 0.96 0.58 PTSEC No results within date range. INR No results within date range. APTT No results within date range. ALT 14 U/L 09/28/2023 38 7 AST 20 U/L 09/28/2023 35 13 TBILI 0.4 mg/dL 09/28/2023 1.3 0.2 TSH No results within date range. Lab Value Units Date High Low HCGQT No results within date range. UHCG No results within date range. HCG, BODY* No results within date range. Lab Value Units Date High Low ABORHD No results within date range. ABSCREEN No results within date range. No results found for: HBA1C No results found for this or any previous visit (from the past 8760 hour(s)). No results found for this or any previous visit (from the past 42761 hour(s)). Instructions Given to Patient: Instructions located in the after visit summary. Patient given verbal and written preop instructions and voices comprehension and compliance. SIGNATURE: Maria Fernanda Miller APRN.CNP PATIENT NAME: Phyllis Sanchez DATE: October 16, 2023 TIME: 1:06 PM [facility] History and physical note* Maria Fernanda Miller APRN.CNP - 10/16/2023 1:06 PM EDT HISTORY AND PHYSICAL EXAMINATION SERVICE DATE: 10/16/2023 SERVICE TIME: 1:38 PM PRIMARY CARE PHYSICIAN: Murphy Cuevas MD Assessment Patient has the following medical conditions which may affect avelino-operative course: Chronic left-sided low back pain without sciatica Assessment: otc analgesics as needed Osteoporosis Assessment: Fosamax Solitary pulmonary nodule Assessment: per outside EMR, CXR 06/2021 with no mention RESULT: Lines, tubes, and devices: None. Lungs and pleura: Bilateral apical scarring. No consolidation. No lung mass. No pleural effusion. No pneumothorax. Cardiomediastinal silhouette: Normal cardiomediastinal silhouette. Bones and soft tissues: Unremarkable. Hx of seizure disorder Assessment: remote hx during her teens, no issues since Domínguez Activity Status Index: METS: Climb a flight of stairs or walk up a hill (5.50 METs) DASI Score: 5.5 Patient denies any chest pain or undue shortness of breath with the above physical activity. Clinical Frailty Scale: 3. Well, with treated comorbid disease STOP-Bang Score: Patient over 50 years old Denies snoring loudly Denies feeling tired, fatigued, or sleepy during the daytime Has not been observed to stop breathing or choking/gasping during sleep Denies having high blood pressure BMI less than or equal to 35 kg/m^2 Does not have a large neck Non-male patient STOP-Bang Score: 1 [id number] Score: Age: 65-74 Sex: female CHF history: No Hypertension history: No Vascular disease history: No Diabetes history: No [id number] Score: ARISCAT Score: Age: 51-80 Preoperative SpO2: >=96% Respiratory infection in the last month: No Preoperative anemia: Yes Surgical incision: peripheral Duration of surgery: >3 hrs Emergency procedure: No ARISCAT Score: 37 ANESTHESIA FINDINGS: Intubation History: No history of difficult intubation Significant Anesthesia Considerations: none Airway History: No history of difficult airway I - PHYSICAL EVALUATION AIRWAY Patient intubated: No. Tracheostomy tube not present Mallampati: I. TM distance: >3 FB. Neck ROM: full ROM without neurological symptoms. Mouth opening: adequate. Short neck: no. Thick neck: no Coulter present: no Lip Bite Test: I Microretrognathia/Micronagthia/Recessed Chin: No DENTAL Dental findings: teeth intact. II - ANESTHESIA PLAN Anesthetic Plan: other Beta Joesph Monitoring Plan Post Procedure Analgesic Plan Informed Consent Anesthetic risks, benefits, alternatives, personnel and consent discussed: yes. Patient / Responsible Alliance Party agrees to proceed: yes Patient / Surrogate agrees to blood products: blood products not planned Discussed the possibility of lip / dental damage: yes Prepared for Surgery: optimally prepared for surgery, pending [see comment]. labs CONSULTS: Patient does not require consults for optimization at this time Planned Anesthetic: other anesthesia choice The Following Tests/Procedures Have Been Initiated: No orders of the defined types were placed in this encounter. REASON FOR VISIT: Phyllis Sanchez is a 72 year old female who is scheduled for Procedure(s): COLPOPEXY VAGINAL VAULT SUSPENSION INTRA-PERITONEAL APPROACH (Bilateral) HYSTERECTOMY VAGINAL UTERUS 250G OR LESS REMOVAL TUBE(S) AND/OR OVARY(S) (N/A) COMBINED ANTERIOPOSTERIOR COLPORRHAPHY INCLUDING CYSTOURETHROSCOPY WHEN PERFORMED (N/A) PERINEOPLASTY, NON-OBSTETRICAL (N/A) at the request of Dr. Michael Manzanares for consultation. My final recommendation will be communicated back to the requesting physician by way of shared medical record or letter. Subjective The patient has the following: ACTIVE PROBLEM LIST Ddd (Degenerative Disc Disease), Lumbar Vitamin B12 Deficiency Solitary Pulmonary Nodule Osteoporosis Hx of Seizure Disorder COVID-19 Immunization Status Postponed - Covid-19 Vaccine ( season) Postponed until 09/27/2024 09/28/2023 Postponed until 09/27/2024 by Christina Martin APRN.CNP (Declined at this time) 09/01/2022 Postponed until 09/02/2023 by Tatyana Cortez MA (Declined at this time) 03/26/2021 Imm Admin: COVID-19 original vaccine, full dose, monovalent (MODERNA) Only the first 3 history entries have been loaded, but more history exists. CHIEF COMPLAINT: Pre-op exam HPI: Phyllis Sanchez is a 72 year old seen for PAC due to scheduled above surgery because of uterovaginal prolpase. 07/29/2023, Dr. Michael Manzanares HISTORY OF PRESENT ILLNESS: She is interested in surgical repair of prolapse. She reports prolapse symptoms for at least 4 months. She has noticed a vaginal bulge that she couldsee and feel. She reports having pelvic pressure symptoms. She does manually reduce the bulge. She has not tried a pessary. She reports JEMIMA with coughing, laughing, and sneezing with full bladder. She reports UUI. She does not have symptoms of urinary urgency and frequency. She does feel that she empties her bladder completely. She has not tried overactive bladder medications. Daytime frequency: q1 hour in the morning after coffee, q2 hours in the afternoon Nocturia: 0 Fluid intake: 2 cups of coffee, and 8-12 oz of water daily in the morning, then sips on large waterbottle throughout the day. She denies a history of UTIs. Today she denies any dysuria or hematuria. She denies constipation, she has normal bowel movements although she had a CT performed for abdominal pain/bloating and was told she was full of stool. She reports fecal incontinence of liquid or very soft gas/stool. She does take fiber supplements to help with her constipation. She denies vaginal dryness. She does use vaginal estrogen. She is sexually active. She reports pain with intercourse occasionally. She denies a strong family history of breast and ovarian cancer. Medical and Symptom History: UPPER CUTTER OUT HISTORY: menopause at age 51, Denies hx of HRT, Denies hx of abnormal paps, last pap in 2018 normal, last mammogram 2022 OB History T3 L3 SAB1 IAB0 Ectopic0 Multiple0 Live Births0 Comment: 3 vaginal deliveries 4 grandchildren , x3 History of third or fourth degree laceration: had tear, unsure of degree Weight of largest baby: [id number] REVIEW OF SYSTEMS: General: No weight loss, malaise or fevers. Neurological: Positive for: seizures (remote childhood, no issues since). 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 Respiratory: Former smoker 1ppd/5 years, in her 20's. No history of current cough or dyspnea, or pneumonia in the past 6 weeks. No history of respiratory/pulmonary symptoms or problems. Cardiovascular: No history of HTN requiring medication, no history of angina, CHF, AL, cardiac surgery or stents. Denies rest pain, gangrene or revascularization/amputation for PVD. No history of cardiovascular symptoms or problems. GI: No history of GI symptoms or problems. No history of esophageal varices, recent ascites, or ETOH greater than 2 drinks per day. : See HPI. UPPER CUTTER OUT: See HPI. Endocrine: No history of diabetes. Has not taken steroids within the past 30 days. No history of endocrinological symptoms or problems. Hematology: No history of bleeding or clotting disorder. Patient is not taking anti-coagulation or platelet medications. No history of hematological symptoms or problems. Oncology: No history of CA metastasis, chemo within 30 days, or radiotherapy within 90 days. No history of oncological symptoms or problems. Psych: No history of psychiatric symptoms or problems. Musculoskeletal: +osteoporosis, on rx Positive for: back pain. Skin: Negative for lesions, rash and itching. PAST MEDICAL HISTORY Diagnosis Date Chronic left-sided low back pain without sciatica 05/22/2018 Closed fracture dislocation of multiple fingers 1986 right hand caught in conveyor belt Detached retina, left 2006 H/O ganglion cyst Seizure disorder (HCC) 1967 on medication in her teens. Off medication at age 19. PAST SURGICAL HISTORY Procedure Laterality Date COLONOSCOPY FLX DX W/COLLJ SPEC WHEN PFRMD 07/02/2018 Colonoscopy 10 yr interval ENDOSC BALLOON SINUPLASTY PAST SURGICAL HISTORY OF Right 04/28/2022 partially torn maniscus repair S MENISCAL REPAIR OUT/IN Left FAMILY HISTORY Problem Relation Age of Onset Coronary Artery Disease Mother Ischemic Heart Disease Mother Stroke Mother other (Other) Father CO poisoning at factory Heart Sister heart murmur Cancer Brother Throat cancer Autism Brother other (lung) Brother pneumonia Diabetes Maternal Grandmother No Known Problems Daughter No Known Problems Son No Known Problems Son Breast Cancer Maternal Aunt Social History Tobacco Use Smoking status: Former Packs/day: 1.00 Years: 9.00 Additional pack years: 0.00 Total pack years: 9.00 Types: Cigarettes Start date: 05/18/1973 Quit date: 05/18/1984 Years since quittin.4 Smokeless tobacco: Never Vaping Use Vaping Use: Never used Substance Use Topics Alcohol use: Yes Comment: 1-2 glasses a few times a week Drug use: No Prior to Admission medications as of 10/16/23 1327 Medication Sig Last Dose Taking estradiol (ESTRACE) 0.01 % (0.1 mg/gram) vaginal cream apply one gram or soybean sized amount over the vaginal opening every night for 2 weeks then 2 evenings per week Taking Yes alendronate (FOSAMAX) 35 mg tablet Take 1 tablet by mouth one time a week. Taking Yes fluticasone (FLONASE) 50 mcg/actuation nasal spray Use 2 Sprays in each nostril once daily. Rinse mouth after use. Taking Yes vit C/E/cuperic/zinc/lutein (PRESERVISION LUTEIN ORAL) Take by mouth twice daily. Taking Yes cyanocobalamin (VITAMIN B-12) 1,000 mcg tab Take 1 tablet by mouth once daily. Taking Yes calcium carbonate (CALCIUM 600) 600 mg calcium (1,500 mg) tab Take 0.5 tablets by mouth once daily.Taking Yes No medication comments found. ALLERGIES No Known Allergies Objective PHYSICAL EXAM: General: alert and oriented (x3) and healthy appearance. Pertinent negatives noted - not distressed. Skin: normal color, no rash or lesions. HEENT: EOM intact and pupils equal round. Pertinent negatives noted - no carotid bruit. Cardiovascular: regular rate and rhythm, normal S1 and S2, no rub, murmurs, or gallop. Respiratory: normal breath sounds, no wheezes or crackles. No chest wall deformity or tenderness. Abdomen: soft. Pertinent negatives noted - not tender. Extremities: no deformity, no edema or tenderness, no joint swelling or clubbing. Neurological: normal cognition and motor skills. Gait normal. No weakness or sensory deficit. PAIN ASSESSMENT: VITALS: BP 136/88 Pulse 85 Temp (Src) 98.4 (Temporal) Resp 14 Ht 5' .5 (1.54m) Wt 102 lb (46.3kg) SpO2 98% BMI 19.59 kg/(m^2). Diagnostic tests reviewed for today's visit: Lab Value Units Date High Low HB No results within date range. HCT No results within date range. WBC No results within date range. PLT No results within date range. NA 142 mmol/L 09/28/2023 144 136 K 4.6 mmol/L 09/28/2023 5.1 3.7 GLUC 88 mg/dL 09/28/2023 99 74 BUN 11 mg/dL 09/28/2023 21 7 CREAT 0.57 mg/dL 09/28/2023 0.96 0.58 PTSEC No results within date range. INR No results within date range. APTT No results within date range. ALT 14 U/L 09/28/2023 38 7 AST 20 U/L 09/28/2023 35 13 TBILI 0.4 mg/dL 09/28/2023 1.3 0.2 TSH No results within date range. Lab Value Units Date High Low HCGQT No results within date range. UHCG No results within date range. HCG, BODY* No results within date range. Lab Value Units Date High Low ABORHD No results within date range. ABSCREEN No results within date range. No results found for: HBA1C No results found for this or any previous visit (from the past 8760 hour(s)). No results found for this or any previous visit (from the past 43550 hour(s)). Instructions Given to Patient: Instructions located in the after visit summary. Patient given verbal and written preop instructions and voices comprehension and compliance. SIGNATURE: Maria Fernanda Miller APRN.CNP PATIENT NAME: Phyllis Sanchez DATE: October 16, 2023 TIME: 1:06 PM PAGER/CONTACT #: [facility] History of Present illness Narrative* Lesia Steele E - 10/13/2023 1:00 PM EDT DATE OF SERVICE: 10/13/2023 PROBLEM: Phyllis Sanchez presents for pre-op teaching. PRE-OP DIAGNOSIS: uterovaginal prolapse, incomplete SCHEDULED SURGERY AND DATE: 10/27/23 at [facility]: Total vaginal hysterectomy Possible bilateral salpingo-oophorectomy Uterosacral ligament suspension Anterior colporrhaphy Posterior colporrhaphy Perineorrhaphy Cystoscopy Procedures as indicated PRIMARY SURGEON: Michael Manzanares MD NURSING PREOP ASSESSMENT: Fevers, chills, cough, or nasal congestion: No Vaginal itching, burning, discharge, or odor: No Pain with urination, frequency, urgency, cloudy or foul smelling urine: No If yes to any of the above then MD notified: Not Applicable ADVANCED CARE PLANNING: Does the patient have an advanced directive: No [facility] have a copy of the patient's advanced directive: No Was advanced directive given to the patient: No PATIENT LEARNING ASSESSMENT: Individual patient/family learning needs evaluated and addressed: Yes Cognitive ability: Alert and oriented Motivation to learn: Eager Factors affecting learning: None Physical limitations affecting learning: None Patient learns best by: Multiple Methods Method of instruction: Teach Back , Individual instruction Written instruction/Handouts Verbal instruction Instructions provided to: Patient via telephone. Written material provided prior to education appointment. Family support: Unable to assess - Family not present PRE- AND POST-OPERATIVE TEACHING Pre-operative teaching and supplemental material provided and reviewed with patient: Your Surgical Guide Book Map Written pre-op and post-op instructions Bowel prep directions Antibacterial soap: given to patient prior to preop teaching appointment Pre-operative instructions provided and reviewed with patient/family: No eating, drinking, or smoking after midnight prior to surgery unless otherwise directed No alcohol the day before surgery Medications as prescribed by anesthesia, internal medicine, surgeon, or LITIGATION SUPPORT ANALYST Stop NSAIDs, Aspirin (ASA), vitamins, herbal supplements, herbal teas, and diet pills 7-10 days prior to surgery OK to take tylenol prn pain unless otherwise directed by physician Call surgery coordinators if any other questions about surgery date or pre-op appointments Bowel prep instructions: Magnesium citrate (10 oz) per protocol Day of surgery instructions provided and reviewed with patient/family: Arrival time (call surgical coordinators on the office day prior to surgery for verification) No jewelry, body piercing, makeup, contacts, lotions, nail german on fingers, or anything in hair on arrival to surgery Wear low healed shoes and loose fitting clothing Leave all valuables at home or with a family member Directions to [facility] Parking/parking validation on the day prior to surgery Admission/check in (Report to [facility] W[facility] for surgery) Holding area Placement of IV Surgical positioning Family waiting area Surgical recovery room Post-operative instructions provided and reviewed with patient/family: SEE PATIENT INSTRUCTION SECTION FOR DETAILS. ACTIVITY - No heavy lifting (>5-10 lbs), no pushing/pulling, OK to climb stairs DRIVING - No driving for 1 week unless prior approval from MD, OK to ride in a car. DIET - Advance diet as tolerated and as ordered by MD, drink 8 glasses of water a day, eat a diet high in protein and fiber unless otherwise directed by MD. CATHETER - Will be inserted during surgery, you may go home with a catheter for 7-10 days and will have to come back to the office for a voiding trial, UTI symptoms reviewed and patient instructed lynn MONTERO of any of these symptoms. BATHING - OK to shower after surgery unless otherwise directed by MD, no tub baths. PAIN MEDICATION - IV pain medication after surgery, IV BUTTERMAKER HELPER if ordered by MD, discharged home with aprescription for PO pain medication, pain management after surgery, side effects of pain medication(including constipation, dizziness, drowsiness, and medication interactions). VAGINAL CARE - Pelvic rest x6 weeks unless otherwise directed by MD. DVT PROPHYLAXIS - Early ambulation, SCDs, injectable anticoagulants (heparin, lovenox, etc) RESPIRATORY - Incentive spirometer, coughing/deep breathing exercises, ambulation. SYMPTOMS TO NOTIFY MD - Fever, chills, nausea, vomiting, increased or severe pain, heavy vaginal bleeding, foul smelling vaginal drainage, pain or swelling in extremities. URGENT SYMPTOMS - Call 911 or go to ER if any shortness of breath, difficulty breathing, or chest pain. HOW TO CONTACT PHYSICIAN - Physician's office phone number given to patient, if after hours patientinstructed to call steam conditioner operator and ask for clinical documentation improvement specialist urogynecologist PAT program offered to patient: No Additional teaching as indicated by patient/family learning needs. PATIENT LEARNING EVALUATION & FOLLOW UP PLAN: Patient and/or family express understanding of upcoming surgery, pre-operative preparation, the operative process, and post-operative instructions. Follow up plan: Complete - No need for follow-up Patient has a post-op appointment scheduled: Yes Referral (recommentation): None Educator: Lesia Steele [facility] Instructions* Patient Instructions* Lesia Steele - 10/13/2023 8:18 AM EDT Images from the original note were not included. HELPFUL PRE-SURGICAL INFORMATION Preparing your skin for surgery Your doctor has asked that you use a special type of soap before surgery, which will help prevent infections after surgery. This soap is called Chlorhexidine, and is sold as Hibiclens, Exidine, and Betasept. You will need a4 oz. bottle. You will use this soap to wash your body from the neck down. DO NOT use the soap on your head or face. Directions: Use 1/2 of the 4 oz. bottle to wash your body in the shower the night before surgery. Use the other 1/2 bottle to wash your body in the shower the morning of your surgery. DO NOT shave the skin on your belly, genitals, or upper thighs for several days before your surgery. Bowel preparation You will need one 10 oz bottle of Magnesium Citrate saline laxative Start the day prior to surgery Drink the Magnesium Citrate at 12:00 pm Continue with clear liquids for the rest of the day [clear broth, popsicles, Jell-O, coffee or tea (as long as there is no cream or milk added), Gatorade, Crystal light]. Nothing to eat or drink after midnight the night before surgery Other information It is your responsibility to call your primary care or cardiology office to make an appointment if they require seeing you for Medical Clearance. This is at the discretion of each physician. Completed Medical Clearance forms must be faxed or dropped off to our office at least 72 hours prior to yoursurgery date. For your personal safety, you must be accompanied by a responsible person to drive you home. YOU MAY NOT TAKE A BUS, SCAT, OR CAB. You will need to get the following supplies at the pharmacy before your surgery: Prescriptions Stool softener (Colace or generic docusate sodium) Medications Blood Thinners- for example, Aspirin, baby Aspirin, Coumadin, Heparin, Plavix, Vitamin E, Multivitamin, Fish Oil, Flax Seed, Dino, Ginkgo, Ginseng, Jud's Wort, Tumeric, and anti-inflammatory medications including Motrin, Advil, Aleve, etc. MUST be discontinued 7 days prior to surgery. You are responsible for contacting the physician who is monitoring these medications to let them know you will be stopping them during this time. If your physician requires a different plan of action, please contact our office. Diabetic Medications- If you are taking any form of Metformin or Glucophage,or insulin, please consult your primary care physician for directions on holding these medications prior to surgery. Continue to take all other scheduled medications, unless your surgeon instructs you otherwise. You will not be allowed to eat or drink after midnight before your surgery - however, you may take your scheduled oral medications with a sip of water - just enough to get the medications down. Stretching Exercises Starting 5 days before surgery, we recommend that you perform stretching exercises to decrease painafter surgery. We recommend stretching at least 3 times per day every day before surgery. Stretch 1: While lying on your back on the bed or a floor mat Hug your RIGHT knee up to your chest while your left leg is straight on the bed or floor. Hold for 10 seconds. Extend RIGHT leg and rest it on the bed or floor. Rest for 10 seconds. Repeat exercise with the LEFT leg. Hug both knees to chest. Hold for 10 seconds. Straighten both legs and rest them on the bed or floor. Stretch 2: While standing Bend forward at waist and let your arms hang down towards the floor. You may rest your arms on a table or counter for support. Hold for 10 seconds. PATIENT INSTRUCTIONS PRIOR TO SURGERY Please read these instructions carefully. Your surgery may be cancelled if you do not follow these instructions. GENERAL Do not wear jewelry, body piercing(s), makeup, nail german, hairpins, or contacts on the day of surgery. Leave valuables and money at home or with family members. If you have Obstructive Sleep Apnea and use a CPAP/BiPAP machine, bring your mask, tubing, and machine with you on the day of surgery. INFECTION PREVENTION Please notify your doctor if you have any signs of an infection (i.e. fever, severe cough, nasal congestion, pain with urination, abnormal vaginal discharge, etc). Hand washing is extremely important in preventing infection (for both you as the patient and for the caregivers). HOSPITALIZATION Before you leave the hospital, you typically need to be able to eat/drink, urinate, and have your pain controlled with oral medication. Your surgeon or other members of your surgeon s team will discuss any other specific medical issues related to your discharge with you. Your surgeon may order intermittent compression sleeves. These are massaging leg pumps to help prevent blood clots after surgery. It is also very important that you walk as soon as possible and as frequently as possible after surgery. This will help decrease your risk of blood clots, exercise your lungs and speed up your recovery after surgery. If you are admitted to the hospital overnight, you will be given an incentive spirometer, which is a breathing machine that will help make sure that you are taking deep breaths and expanding your lungs while in the hospital. [facility] TEAM At [facility], we have a multidisciplinary team of caregivers that includes fellows, residents, nurse practitioners (machine tech), physician assistants (PAs), clinical nurse specialists (CNSs), nurses, medical assistants (MAs), patient care nursing assistants (PCNAs), social workers, pillowcase maker and many others. We all have different roles and responsibilities but we all are here to help you. If you spend the night in the hospital, a physician from your care team will see you the day after your surgery. At times, scheduling does not permit your surgeon to see you in the hospital the day after surgery. If this occurs, another physician on the urogynecology care team will see you in the hospital. THE DAY BEFORE SURGERY If you are having surgery at [facility]: On the day before your surgery, you must call [phone] to find out your surgery arrival time. If you are having surgery at a regions hospital ([facility] surgery [place], [facility]): You will receive a call the day before surgery to give you your surgery arrival time. THE DAY OF SURGERY/CHECK IN Surgery Location Parking Check-in Location [facility] [address] [place] [address] garage or public health informatician parking available DESK J1-1 A map is located in Your Surgical Guide Book. The online version of the surgical guide book can be found at: [email or web address] [facility] [address] [place], [place] Parking garage connected to hospital or public health informatician Registration desk, first floor, [facility] [address] [place], [place] Parking lot in front of building [id number] (elevator to lower level) [facility] [address] [place], [place] Parking garage next to hospital or public health informatician Atrium, Surgical Waiting Desk [facility] [address] [place], [place] Parking garage across from main entrance. Main entrance [facility] [address], [place] Park in the back of the hospital, go to Entrance A. Take elevators to 1st floor and enter into the Surgery Department UROGYNECOLOGY POSTOP INSTRUCTIONS ACTIVITY Your surgical recovery will be unique to you and how you heal. In the first few days after surgery,you will probably feel sluggish. As you recover, you will gradually return to normal activities. Itis important to push yourself to return to normal activities as you feel fit. Listen to your body in terms of increasing your activity level as you recover. You may walk and climb stairs right after surgery. Walking and stair climbing will not hurt your surgical repair. You may resume activities like lifting/running/high impact aerobic activities/sit-up as soon as youfeel strong enough. Please do not do any bike or horseback riding for 2 weeks if you have had a midurethral sling. Do not put anything in the vagina for 6 weeks after surgery unless otherwise instructed by your doctor (including tampons, douching, sexual intercourse, etc). No driving while you are taking narcotic pain medication, or until you feel that you are ready and can safely slam the brakes if needed. Avoid sitting or lying in bed for more than 2 hours at a time while you are awake to reduce your risk of blood clots. You may return to work when directed by your physician. Please contact your doctor if you need any return to work letters or medical leave paperwork to be completed. PAIN MANAGEMENT After you go home, you should take the prescribed acetaminophen (Tylenol) and ibuprofen (Motrin) asdirected. We recommend rotating the timing of these medications so that you are taking one of these medications every 3 to [address], you can help prevent pain. After the first 72 hours, you can take these medications as needed. These should be the first medications you use for pain. Applying ice packs to your incisions (abdominal or vulvar/perineal) for 20 minutes as often as needed may also help. Some pain medications can cause constipation so you should take a stool softener (i.e. Colace) or laxative (i.e. Miralax) while you are on these medications (see the following section on constipation). You may have been prescribed an opioid medication, also known as a narcotic pill. This is usually oxycodone. You may be familiar with the medication Percocet, which is a combination of oxycodone and acetaminophen. These opiate medications have side effects like nausea or vomiting, constipation, and sleepiness. You should only take them if your pain is not controlled by ibuprofen and/or acetaminophen. It is important to keep this stronger pain medication safely stored, as it is at great risk of being stolen or misused by family, friends, or even strangers. Please be sure to dispose of leftover pain medication after you have recovered. You may dispose of unused narcotic medications in the trash with an unpleasant substance such as coffee grounds or cat litter. You can also check FDA.gov to assess which medications can be safely flushed down the toilet. There are locations to dispose of unused medications at three [facility] locations: [facility] pharmacy, [facility] pharmacy, and the [facility] (inside the parking garage on the first floor). CONSTIPATION You may not have a bowel movement for 3-5 days after surgery. This is normal. To help prevent constipation after your surgery, you may receive prescriptions to take including the following: Miralax (polyethylene glycol) 17 g (1 measured capful or 1 packet) once a day. If you have not had a bowel movement 3 days after surgery, you may take the Miralax two times a day. If you have any discomfort because of the need to have a bowel movement, you may add milk of magnesia or magnesium citrate (available at your local pharmacy without a prescription) at any time. Do not take milk of magnesia or magnesium citrate if you have kidney failure. If you have loose or watery stools, stop taking the medications and call your doctor s office. OTHER MEDICATIONS If you were prescribed vaginal estrogen, you should resume it in 7-10 days after surgery unless youwere instructed otherwise. Please check your discharge instructions about when to resume other medications. WOUND CARE If you have sebastien (abdominal incision), they need to be removed about 10-14 days after surgery. There will be dissolvable stitches under your skin that do not need to be removed. If you have band aids, steri strips, (paper tape) or a small gauze covered by tegarderm (clear tape) over your small abdominal incisions, these may be removed when you shower the day after surgery. Keep any incision clean, dry, and open to the air. Shower daily after surgery. No tub baths until wound is completely healed. If you have any abdominal incisions, wash them daily with a mild antibacterial soap and water. Pat your incision dry with a clean towel. Wash your hands frequently, especially before touching your incision, changing any dressings, afterusing the restroom, and before eating. ALLEN CATHETER CARE You may go home with a Allen catheter in your bladder. You will need to follow up for a nurse visitwithin 3-10 days for removal. You will be called by the office to get this appointment if it is notlisted below. General Principles on Catheter Care: Always wash your hands with soap and water before handling your catheter tubing or bag. It is important to empty your catheter bag before it gets too full. Keep the catheter tubing free of kinks and Allen bag below the level of your bladder. Keep your genital region and catheter tubing clean. Instructions on Catheter Plug Use: A catheter plug is used to occlude the end of the catheter so that it can be disconnected from the drainage bag during the day. You may be sent home with catheter plugs. Your postop nurse will give you instructions on how to use the plug before going home. The Allen catheter must be disconnected from its drainage tubing and bag. The plug can then be inserted into the open end of the catheter. The plug should fit snugly. While the plug is in place, your bladder will fill with urine. You must empty your bladder by removing the plug and draining the catheter over the toilet at least every 3 to 4 hours, or sooner if youfeel an urge to urinate. After you have drained the catheter, replace the plug. The catheter should be reconnected to the drainage bag at night so that your bladder can continuously drain while you are sleeping. The plug can be washed every night before bedtime with soap and water. Store it in a clean plastic Ziploc bag when it is not in use. You can continue daytime catheter plugging until your scheduled voiding trial. WHAT TO EXPECT AT HOME Recovery from surgery is generally 4 weeks, but sometimes longer for more strenuous activity. It isnormal to be very tired during this time. It is normal to have some drainage or a small amount of vaginal bleeding after surgery which may last up to 6 weeks. It is normal to have some bruising around the vaginal opening or on the buttocks if you had a vaginal surgery or around your incisions if you had an abdominal or laparoscopic surgery. If you had a laparoscopic surgery, you may experience gas pain, abdominal swelling, or shoulder pain for 24-72 hours after surgery. A warm shower, heating pad, and/or walking may help. WHEN TO CALL YOUR DOCTOR: If you cannot urinate for 3-5 hours or are only able to urinate small amounts. Fever (>100.4 F or 38.0 C) or chills. Incision problems such as redness, warmth, swelling, or foul-smelling drainage. Severe nausea or persistent vomiting. Bright red vaginal bleeding (soaking >1 pad/hour) Foul smelling vaginal drainage (note that some vaginal discharge is normal) Severe pain not relieved with pain medication. Pain and swelling in your legs, especially if it is only on one side and not the other. Pain with urination, cloudy urine, or foul-smelling urine. Or if you have any other problems or questions. CALL 911 OR GO TO THE EMERGENCY ROOM IF YOU HAVE: shortness of breath, difficulty breathing, or chest pain. UROGYNECOLOGY PHYSICIAN CONTACT INFORMATION During business hours, these numbers connect to your doctor s office. During the evening and weekends, these numbers will connect you to the answering service to speak with the doctor clinical documentation improvement specialist. Press Option 3 for specialty services and speak with the steam conditioner operator. Dr. Michael Vega Office Walker Office Trina Mercado, PLY BANDER Mara Landeros, PLY BANDER Dung Holman, PLY BANDER Mavis Garcia, PLY BANDER Kyra Kamara, PLY BANDER Stephany Gayle, PLY BANDER Please DO NOT use MyChart for post-surgery concerns. documented in this encounter[facility]05-[facility] History of Present illness Narrative* Tyrell Esposito RT(R) - 10/01/2023 7:45 AM EDT Radiology Service Progress Note PATIENT NAME: Phyllis Sanchez DATE OF SERVICE: October 01, 2023 TIME: 7:49 AM PATIENT IDENTITY VERIFICATION COMPLETED USING TWO (2) IDENTIFIERS: Name and Date of confirmedby patient verbally. FALL SCREENING: Has the patient had 2 falls in the last year or 1 fall with injury or currently using an Ambulatory Assistive Device (Walker, Cane, Wheelchair, Crutches, etc.)? No PATIENT GENDER DATA: Female. status: : No status: NO. PATIENT RELEVANT IMPLANT DATA REVIEWED: Not Applicable PATIENT PRESENTS WITH AN IMPLANTABLE OR ATTACHED SOLE BUFFER: No RADIOLOGY DEPARTMENT: Bone Density PERIPHERAL IV DATA: Not applicable SIGNED BY: RT Jared(R) October 01, 2023 7:49 AM documented in this encounterMi[facility]05-13-[facility]24 Telephone encounter Note * Telephone Encounter - Zachary Nguyen MD - 09/28/2023 4:16 PM EDT [facility] IRB#: [id number] Study name: Platelet-Rich Plasma (PRP) Injections in Patients Desiring Uterosacral Ligament Suspension Surgery for Prolapse: A Feasibility Study PI: Dr. Dafne Rubio Date: 09/28/2023 The patient read the informed consent and verbalized her understanding. All questions were answered. DocuSign sent and signed by patient and myself. Lizzie Terrazas, Research RN, served and signed as witness. The patient has received a fully executed copy. After obtaining informed consent, the patient was sent the baseline REDCap survey to complete. Zachary Nguyen MD [facility] Work Phone: [phone]) 795-827305-13-2024 Miscellaneous Notes* Telephone Encounter - Zachary Nguyen MD - 09/28/2023 4:16 PM EDT [facility] IRB#: [id number] Study name: Platelet-Rich Plasma (PRP) Injections in Patients Desiring Uterosacral Ligament Suspension Surgery for Prolapse: A Feasibility Study PI: Dr. Dafne Rubio Date: 09/28/2023 The patient read the informed consent and verbalized her understanding. All questions were answered. DocuSign sent and signed by patient and myself. Lizzie Terrazas, Research RN, served and signed as witness. The patient has received a fully executed copy. After obtaining informed consent, the patient was sent the baseline REDCap survey to complete. Zachary Nguyen MD * Telephone Encounter - Zachary Nguyen MD - 09/28/2023 2:02 PM EDT [facility] IRB#: [id number] Study name: Platelet-Rich Plasma (PRP) Injections in Patients Desiring Uterosacral Ligament Suspension Surgery for Prolapse: A Feasibility Study PI: Dr. Dafne Rubio Inclusion and exclusion criteria reviewed and confirmed by Zachary Nguyen M.D. Introduced purpose of research study. Discussed study protocol and potential risks/benefits, treatment alternatives, data confidentiality measures, participant compensation, and follow up with patient/family. The patient states understanding and agrees to have ICF emailed to her. DocuSign discussed and patient is agreeable to proceed with that method of consent. Date and Time: 09/28/2023 2:03 PM ICF and DocuSign instructions sent via email. Patient reports familiarity with Docusign. She will contact me with any issues with the consent/additional questions about the study. Zachary Nguyen MD documented in this encounterMiami [facility] Hospital05-13-2024 Telephone encounter Note * Telephone Encounter - Zachary Nguyen MD - 09/28/2023 2:02 PM EDT [facility] IRB#: [id number] Study name: Platelet-Rich Plasma (PRP) Injections in Patients Desiring Uterosacral Ligament Suspension Surgery for Prolapse: A Feasibility Study PI: Dr. Dafne Rubio Inclusion and exclusion criteria reviewed and confirmed by Zachary Nguyen M.D. Introduced purpose of research study. Discussed study protocol and potential risks/benefits, treatment alternatives, data confidentiality measures, participant compensation, and follow up with patient/family. The patient states understanding and agrees to have ICF emailed to her. DocuSign discussed and patient is agreeable to proceed with that method of consent. Date and Time: 09/28/2023 2:03 PM ICF and DocuSign instructions sent via email. Patient reports familiarity with Docusign. She will contact me with any issues with the consent/additional questions about the study. Zachary Nguyen MD [facility]05-13-[facility]24 Instructions* Patient Instructions* Christina Martin APRN.PLY BANDER - 09/28/2023 8:02 AM EDT BONE MINERAL DENSITY PATIENT INSTRUCTIONS Bone mineral density testing measures the amount of calcium in certain parts of your bones. This information determines how strong your bones are. The test is used to detect osteoporosis, a disease in which the bone's mineral content and density are low, increasing a person's risk of fractures. Thelumbar spine (lower back) and the hip are the skeletal sites usually examined. For the test, remember that: 1. You cannot take this test if you are . 2. Eat a normal diet on the day of the test. 3. Take your medications as you normally would. 4. DO NOT take calcium supplements (such as Tums) for 24 hours before the test. 5. On the day of the test, leave valuables (jewelry or credit cards) at home. 6. The test should be performed prior to oral, rectal or IV contrast studies, or at least 7 days after any of these studies. For the test, you may be asked to wear a hospital gown. You will lie on your back, on a padded table, in a comfortable position. Generally, you can resume your usual activities immediately. documented in this encounterMiami [facility] Hospital05-13-2024 History of Present illness Narrative* Christina Martin APRN.RAS - 09/28/2023 7:53 AM EDT CC: Patient presents with: F/U 6 months HPI Phyllis Sanchez is a 72 year old female who presents today for routine follow up. Osteopenia: Taking fosamax as ordered. Taking calcium with vitamin D. Denies any broken bones outside for broken ribs last April. Does yard work and cutting wood for weight bearing exercise but isnot completed every day. Last bone density in 2020. REVIEW OF SYSTEMS General: no fevers, no chills, no night sweats, no recurrent infections, no change in appetite, no change in energy, and no significant changes in weight Respiratory: no cough, no wheezing, no shortness of breath, no hemoptysis Cardiovascular: no chest pain, no chest pressure, no palpitations, and no swelling PAST MEDICAL HISTORY Diagnosis Date Chronic left-sided low back pain without sciatica 05/22/2018 Closed fracture dislocation of multiple fingers 1986 right hand caught in conveyor belt Detached retina, left 2005 H/O ganglion cyst Seizure disorder (HCC) 1967 on medication in her teens. Off medication at age 19. PAST SURGICAL HISTORY Procedure Laterality Date COLONOSCOPY FLX DX W/COLLJ SPEC WHEN PFRMD 07/02/2018 Colonoscopy 10 yr interval PAST SURGICAL HISTORY OF Right 04/28/2022 partially torn maniscus repair S MENISCAL REPAIR OUT/IN Left ALLERGIES Patient has no known allergies. MEDICATIONS L.acid/L.casei/B.bif/B.jane/FOS (PROBIOTIC BLEND ORAL) Take by mouth. estradiol (ESTRACE) 0.01 % (0.1 mg/gram) vaginal cream apply one gram or soybean sized amount over the vaginal opening every night for 2 weeks then 2 evenings per week alendronate (FOSAMAX) 35 mg tablet Take 1 tablet by mouth one time a week. fluticasone (FLONASE) 50 mcg/actuation nasal spray Use 2 Sprays in each nostril once daily. Rinse mouth after use. (Patient not taking: Reported on 07/29/2023) vit C/E/cuperic/zinc/lutein (PRESERVISION LUTEIN ORAL) Take by mouth twice daily. glucosamine/chondr craft A sod (GLUCOSAMINE-CHONDROITIN) 750-600 mg tab Take by mouth twice daily. cyanocobalamin (VITAMIN B-12) 1,000 mcg tab Take 1 tablet by mouth once daily. calcium carbonate (CALCIUM 600) 600 mg calcium (1,500 mg) tab Take 0.5 tablets by mouth once daily. FAMILY HISTORY Problem Relation Age of Onset Coronary Artery Disease Mother Ischemic Heart Disease Mother Stroke Mother other (Other) Father CO poisoning at factory Heart Sister heart murmur Cancer Brother Throat cancer Autism Brother other (lung) Brother pneumonia Diabetes Maternal Grandmother No Known Problems Daughter No Known Problems Son No Known Problems Son Breast Cancer Maternal Aunt Social History Tobacco Use Smoking status: Former Packs/day: 1.00 Years: 9.00 Additional pack years: 0.00 Total pack years: 9.00 Types: Cigarettes Start date: 05/18/1973 Quit date: 05/18/1984 Years since quittin.3 Smokeless tobacco: Never Vaping Use Vaping Use: Never used Substance Use Topics Alcohol use: Yes Comment: 1-2 glasses a few times a week Drug use: No PHYSICAL EXAM BP 130/72 (BP Site: Left Arm, BP Position: Sitting, BP Cuff Size: Regular Adult) Pulse 88 Resp 12 Ht 154.9 cm (5' 1) Wt 46.7 kg (103 lb) SpO2 95% BMI 19.46 kg/m General Appearance: well appearing, in no acute distress, alert Pysch: mood and affect broad and appropriate Eyes: conjunctiva pink and moist, no icterus, sclera white, non-injected Lungs: Lungs clear to auscultation. No wheezing, rhonchi, rales. Heart: RRR without murmur, gallop, or rubs. No ectopy Health maintenance reviewed with patient: DTaP,Tdap,Td Vaccine(1 - Tdap) Never done Covid-19 Vaccine(4 - 2022- season) due on 01/16/2023 Advance Directive Discussion due on 05/18/2023 Behavioral Health Screening Never done Mammogram Screening due on 03/06/2024 Diabetes Screening due on 03/05/2026 Lipid Screening due on 09/03/2027 Colorectal Cancer Screening due on 07/02/2028 Bone Density Screening Completed Influenza Vaccine Completed RSV Vaccine Completed Shingrix Vaccine Completed Pneumococcal Vaccine: 65+ Completed Hepatitis C Screening Discontinued DATA REVIEWED: No new labs ASSESSMENT/PLAN: 1. Osteopenia, unspecified location - ICD9: 733.90, ICD10: M85.80 (primary diagnosis) - continue tx with alendronate (Fosamax) - Reviewed the need for Calcium and Vitamin D supplements and weight bearing exercise as tolerated - DXA not completed in 2.5 years. Needs re-evaluated - VITAMIN D 25 HYDROXY 2. Encounter for screening for osteoporosis - ICD9: V82.81, ICD10: Z13.820 - DXA-AXIAL SKELETON - BD DXA TRABECULAR BONE SCORE (TBS) 3. Asymptomatic postmenopausal status - ICD9: V49.81, ICD10: Z78.0 - DXA-AXIAL SKELETON - BD DXA TRABECULAR BONE SCORE (TBS) 4. Annual physical exam - ICD9: V70.0, ICD10: Z00.00 Not reviewed today, blood work ordered to be reviewed at later appointment. - LIPID PANEL BASIC - COMPREHENSIVE METABOLIC PANEL Prescription instructions reviewed with patient as applicable. Potential red flag symptoms discussed with the patient. Reviewed appropriate action plan to take if red flag symptoms occur. Patient agreeable to treatment plan. Christina Martin APRN.CNP documented in this encounterMi[facility]04-08-2024 Miscellaneous Notes* Telephone Encounter - Ita Lujan - 08/24/2023 3:36 PM EDT Returned patient's call to reschedule 11/24 post op appt, pt aware of new date and time documented in this encounterMi[facility]03-21-2024 Miscellaneous Notes* Telephone Encounter - Ita Lujan - 08/06/2023 12:21 PM EDT Spoke with patient and she accepted 10/27/23 surgery date at , scheduled pre & post op appts and informed pt teaching appt will not appear on MyChart documented in this encounterMiami [facility]03-13-2024 Instructions* Patient Instructions* Michael Mnazanares MD - 07/29/2023 9:07 AM EDT HELPFUL PRE-SURGICAL INFORMATION Preparing your skin for surgery Your doctor has asked that you use a special type of soap before surgery, which will help prevent infections after surgery. This soap is called Chlorhexidine, and is sold as Hibiclens, Exidine, and Betasept. You will need a4 oz. bottle. You will use this soap to wash your body from the neck down. DO NOT use the soap on your head or face. Directions: Use 1/2 of the 4 oz. bottle to wash your body in the shower the night before surgery. Use the other 1/2 bottle to wash your body in the shower the morning of your surgery. DO NOT shave the skin on your belly, genitals, or upper thighs for several days before your surgery. Bowel preparation You will need one 10 oz bottle of Magnesium Citrate saline laxative Start the day prior to surgery Drink the Magnesium Citrate at 12:00 pm Continue with clear liquids for the rest of the day [clear broth, popsicles, Jell-O, coffee or tea (as long as there is no cream or milk added), Gatorade, Crystal light]. Nothing to eat or drink after midnight the night before surgery Other information It is your responsibility to call your primary care or cardiology office to make an appointment if they require seeing you for Medical Clearance. This is at the discretion of each physician. Completed Medical Clearance forms must be faxed or dropped off to our office at least 72 hours prior to yoursurgery date. For your personal safety, you must be accompanied by a responsible person to drive you home. YOU MAY NOT TAKE A BUS, SCAT, OR CAB. You will need to get the following supplies at the pharmacy before your surgery: Prescriptions Stool softener (Colace or generic docusate sodium) Medications Blood Thinners- for example, Aspirin, baby Aspirin, Coumadin, Heparin, Plavix, Vitamin E, Multivitamin, Fish Oil, Flax Seed, Dino, Ginkgo, Ginseng, Jud's Wort, Tumeric, and anti-inflammatory medications including Motrin, Advil, Aleve, etc. MUST be discontinued 7 days prior to surgery. You are responsible for contacting the physician who is monitoring these medications to let them know you will be stopping them during this time. If your physician requires a different plan of action, please contact our office. Diabetic Medications- If you are taking any form of Metformin or Glucophage,or insulin, please consult your primary care physician for directions on holding these medications prior to surgery. Continue to take all other scheduled medications, unless your surgeon instructs you otherwise. You will not be allowed to eat or drink after midnight before your surgery - however, you may take your scheduled oral medications with a sip of water - just enough to get the medications down. Stretching Exercises Starting 5 days before surgery, we recommend that you preform stretching exercises to decrease painafter surgery. We recommend stretching at least 3 times per day every day before surgery. Stretch 1: While lying on your back on the bed or a floor mat Hug your RIGHT knee up to your chest while your left leg is straight on the bed or floor. Hold for 10 seconds. Extend RIGHT leg and rest it on the bed or floor. Rest for 10 seconds. Repeat exercise with the LEFT leg. Hug both knees to chest. Hold for 10 seconds. Straighten both legs and rest them on the bed or floor. Stretch 2: While standing Bend forward at waist and let your arms hang down towards the floor. You may rest your arms on a table or counter for support. Hold for 10 seconds. When to call the office Please call the office at if you have any of the following: If you think you have a fever, take your temperature with a thermometer. Please call if your temperature is 101 degrees F or higher. Your pain is not controlled even though you are taking pain medications. You are throwing up and cannot keep food or liquid down. The skin around your incision is red, and redness is expanding. There is fluid or pus draining from your incision. You have heavy vaginal bleeding (soaking through a pad in one hour) or foul- smelling vaginal discharge. You cannot empty your bladder. You cannot move your bowels and you have tried using over the counter stool softeners. If you need a prescription refill, please call during the day (9AM to 4 PM) and have your pharmacy number available. DO NOT wait until you have run out of medicine. documented in this encounterMi[facility]03-13-2024 History of Present illness Narrative* Michael Manzanares MD - 07/29/2023 8:00 AM EDT Female Pelvic Medicine & Reconstructive Surgery Consult CHIEF COMPLAINT: Phyllis Sanchez is a 72 year old referred from Radha Núñez CNP for consultation regarding prolapse. She has not had a hysterectomy. HISTORY OF PRESENT ILLNESS: She is interested in surgical repair of prolapse. She reports prolapse symptoms for at least 4 months. She has noticed a vaginal bulge that she couldsee and feel. She reports having pelvic pressure symptoms. She does manually reduce the bulge. She has not tried a pessary. She reports JEMIMA with coughing, laughing, and sneezing with full bladder. She reports UUI. She does not have symptoms of urinary urgency and frequency. She does feel that she empties her bladder completely. She has not tried overactive bladder medications. Daytime frequency: q1 hour in the morning after coffee, q2 hours in the afternoon Nocturia: 0 Fluid intake: 2 cups of coffee, and 8-12 oz of water daily in the morning, then sips on large waterbottle throughout the day. She denies a history of UTIs. Today she denies any dysuria or hematuria. She denies constipation, she has normal bowel movements although she had a CT performed for abdominal pain/bloating and was told she was full of stool. She reports fecal incontinence of liquid or very soft gas/stool. She does take fiber supplements to help with her constipation. She denies vaginal dryness. She does use vaginal estrogen. She is sexually active. She reports pain with intercourse occasionally. She denies a strong family history of breast and ovarian cancer. Medical and Symptom History: UPPER CUTTER OUT HISTORY: menopause at age 51, Denies hx of HRT, Denies hx of abnormal paps, last pap in 2018 normal, last mammogram 2022 OB History T3 L3 SAB1 IAB0 Ectopic0 Multiple0 Live Births0 Comment: 3 vaginal deliveries 4 grandchildren , x3 History of third or fourth degree laceration: had tear, unsure of degree Weight of largest baby: [id number] Do you: Usually experience pressure in the lower abdomen? No (0) Usually experience heaviness or dullness in the pelvic area? Yes, somewhat bothersome (2) Usually have a bulge or something falling out that you can see or feel in your vaginal area? Yes, quite a bit bothersome (4) Ever have to push on the vagina or around the rectum to have or complete a bowel movement? No (0) Usually experience a feeling of incomplete bladder emptying? Yes, somewhat bothersome (2) Ever have to push up on a bulge in the vaginal area with your fingers to start or complete urination? No (0) Feel you need to strain too hard to have a bowel movement? Yes, somewhat bothersome (2) Feel you have not completely emptied your bowels at the end of a bowel movement? Yes, somewhat bothersome (2) Usually lose stool beyond your control if your stool is well formed? Yes, somewhat bothersome (2) Usually lose stool beyond your control if your stool is loose? Yes, somewhat bothersome (2) Usually lose gas from the rectum beyond your control? Yes, somewhat bothersome (2) Usually have pain when you pass your stool? Yes, not at all bothersome (1) Experience a strong sense of urgency and have to harley to the bathroom to have a bowel movement? Yes, somewhat bothersome (2) Does part of your bowel ever pass through the rectum and bulge outside during or after a bowel movement? No (0) Usually experience frequent urination? Yes, somewhat bothersome (2) Usually experience urine leakage associated with a feeling of urgency, that is, a strong sensation of needing to go to the bathroom? Yes, somewhat bothersome (2) Usually experience urine leakage related to coughing, sneezing or laughing? Yes, somewhat bothersome (2) Usually experience small amounts of urine leakage (that is, drops)? Yes, not at all bothersome (1) Usually experience difficulty emptying your bladder? Yes, not at all bothersome (1) Usually experience pain or discomfort in the lower abdomen or genital region? Yes, somewhat bothersome (2) PAST MEDICAL HISTORY Diagnosis Date Chronic left-sided low back pain without sciatica 05/22/2018 Closed fracture dislocation of multiple fingers 1986 right hand caught in conveyor belt Detached retina, left 2005 H/O ganglion cyst Seizure disorder (HCC) 1967 on medication in her teens. Off medication at age 19. PAST SURGICAL HISTORY Procedure Laterality Date COLONOSCOPY FLX DX W/COLLJ SPEC WHEN PFRMD 07/02/2018 Colonoscopy 10 yr interval PAST SURGICAL HISTORY OF Right 04/28/2022 partially torn maniscus repair S MENISCAL REPAIR OUT/IN Left FAMILY HISTORY Problem Relation Age of Onset Coronary Artery Disease Mother Ischemic Heart Disease Mother Stroke Mother other (Other) Father CO poisoning at factory Heart Sister heart murmur Cancer Brother Throat cancer Autism Brother other (lung) Brother pneumonia Diabetes Maternal Grandmother No Known Problems Daughter No Known Problems Son No Known Problems Son Breast Cancer Maternal Aunt Current Outpatient Medications Medication Sig Dispense Refill L.acid/L.casei/B.bif/B.jane/FOS (PROBIOTIC BLEND ORAL) Take by mouth. estradiol (ESTRACE) 0.01 % (0.1 mg/gram) vaginal cream apply one gram or soybean sized amount over the vaginal opening every night for 2 weeks then 2 evenings per week 42.5 g 3 alendronate (FOSAMAX) 35 mg tablet Take 1 tablet by mouth one time a week. 12 tablet 3 fluticasone (FLONASE) 50 mcg/actuation nasal spray Use 2 Sprays in each nostril once daily. Rinse mouth after use. 1 Each 3 vit C/E/cuperic/zinc/lutein (PRESERVISION LUTEIN ORAL) Take by mouth twice daily. glucosamine/chondr craft A sod (GLUCOSAMINE-CHONDROITIN) 750-600 mg tab Take by mouth twice daily. cyanocobalamin (VITAMIN B-12) 1,000 mcg tab Take 1 tablet by mouth once daily. 90 tablet 3 calcium carbonate (CALCIUM 600) 600 mg calcium (1,500 mg) tab Take 0.5 tablets by mouth once daily. No current facility-administered medications for this visit. ALLERGIES No Known Allergies Social History Tobacco Use Smoking status: Former Packs/day: 1.00 Years: 9.00 Additional pack years: 0.00 Total pack years: 9.00 Types: Cigarettes Start date: 05/18/1973 Quit date: 05/18/1984 Years since quittin.2 Smokeless tobacco: Never Vaping Use Vaping Use: Never used Substance Use Topics Alcohol use: Yes Comment: 1-2 glasses a few times a week Drug use: No REVIEW OF SYSTEMS ENT: negative for findings Respiratory: negative for findings Cardiovascular: negative Gastrointestinal: negative Genitourinary: negative Musculoskeletal: negative Neurologic: negative Psychiatric: negative Endocrine: cold intolerance Integumentary: negative for findings I have confirmed and edited as necessary, the PFSH and ROS obtained by others. Michael Manzanares MD OBJECTIVE: Physical Exam BP 131/78 Pulse 87 Wt 47.6 kg (104 lb 15 oz) BMI 19.83 kg/m General Appearance: Well-appearing, no acute distress Psychiatric: Alert and oriented, normal affect Neck: Deferred Skin: No rashes or lesions Lymph: Deferred C/V: Normal peripheral perfusion Lungs: Respiratory effort normal Abdomen: Soft, non-tender, non-distended Pelvic examination: Vulva/Perineum: Normal development, no lesions, normal hair distribution, normal anus Urethral Meatus:Normal location and size, no lesions Urethra: No masses, tenderness or scarring Bladder:No masses, no tenderness Vagina: atrophic, see POPQ Cervix: nml in appearance Uterus: small, nontender Adnexae:No masses, tenderness or nodularity Perineal Sensation: Normal Levator tone: decreased Levator tenderness: Absent NEG EBCST POP-Q: Prolapse Noted: URO/UPPER CUTTER OUT POP Q 07/29/2023 Aa 2 Ba 2 C -4 gh 3.5 pb 3 tvl 7 Ap 0.5 Bp 0.5 D -6 Prolapse reduced nicely with apical correction. UA results: normal US PVR: 25 cc performed by nurse Backfill bladder cough stress test and simple cystometrics Urethra prepped with betadine. Catheter inserted and 300cc sterile water instilled into the bladder. 200 250 300 No DO Catheter removed and patient instructed to cough. 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 IMPRESSION & PLAN: Phyllis Sanchez is a 72 year old female with: Stage III cystocele, uterovaginal prolapse, rectocele We discussed the findings of our history and physcial today demonstrating Stage III uterovaginal prolapse, cystocele, rectocele. We discussed non-surgical management options, including a pessary and pelvic floor therapy, but she declined these and expressed a desire to proceed with surgery. I reviewed various surgical options: reconstructive versus obliterative, mesh versus [place] tissue, and abdominal versus vaginal versus laparoscopic. Offered TVH, possible BSO (if able), USLS, APR, cysto vs JACEY, sacrocolpopexy, cysto. She decided onvaginal [place] tissue repair. Vega but first available We agreed that we would hold on a suburethral mesh sling at the time of the prolapse repair given her lack of or minimal symptoms and absence of JEMIMA on FORKLIFT TRUCK MECHANIC with 300mL sterile water, prolapse reduced. We discussed all of the details and risks associated with each procedure. We discussed the impact of prolapse repair on bladder function and discussed the possibilities of the development of de fred stress incontinence or post operative voiding dysfunction with a need to temporarily use a catheter.We discussed the 1-5% risk of mesh exposure and the subsequent options for treatment if this shouldoccur. We discussed the risks of surgery, including the risks relevant to her medical conditions. Her primary risks include bleeding, infection, injury to adjacent structures including urethra, ureters, bladder, bowel, rectum, blood vessels, nerves. Risk of mesh exposure and temporary voiding dysfunction. We spoke about surgery and physical activity limitations after surgery. 2. Mixed UI Mixed Urinary Incontinence: We reviewed the diagnosis of overactive bladder/Urge urinary incontience and stress incontinence (JEMIMA) and discussed the symptoms of each diagnosis. We described how her symptoms are consistent with both, and she demonstrated stress incontinence in the office during our exam. Urge Urinary Incontinence: We discussed the signs and symptoms of urge urinary incontinence being associated with and overactivity of the bladder, which decreases the ability of the bladder to store urine consistently. This may be worsened by conditions such as diabetes, obesity, sleep apnea and medications such as diuretics. We discussed treatment options such as conservative measures of timed voiding, avoidance of bladderirritants, avoiding excessive fluid intake, weight loss. Handouts were provided. Stress Urinary Incontinence: For treatment of JEMIMA, we discussed expectant management versus nonsurgical therapy versus surgery for JEMIMA. Nonsurgical options include Kegel exercises, with or without physical therapy, as well as anincontinence pessary. Surgical options include a midurethral sling, which is a synthetic mesh slingthat acts like a hammock around the urethra to decrease leakage of urine by 85%. Given absence of JEMIMA on FORKLIFT TRUCK MECHANIC, will defer mgmt for now. Also defer mgmt of UUI until after surgery 3. Vaginal atrophy Recommend vaginal estrogen cream, which she is already using Michael Manzanares MD I spent a total of 55 minutes on the date of the service which included preparing to see the patient, [id number] patient care, completing clinical documentation, obtaining and/or reviewing separately obtained history, performing a medically appropriate examination, counseling and educating the pat ient/family/caregiver, and ordering medications, tests, or procedures. Consultation requested by Dr. Núñez for an opinion regarding prolapse. My final recommendations will be communicated back to the requesting physician by way of shared Medical record or letter to requesting physician via US mail. [facility] History of Present illness Narrative* Kristen Oviedo APRN.PLY BANDER - 05/07/2023 10:57 AM EST Scheduling: Clinical DDI Triage Patient Name: Phyllis Sanchez Patient was verified by: Name/Date of Triage process was used for: patient complaint of abdominal pain Symptoms: abdominal pain; states generalized abdominal pain. She had this before in March and her PCP did a CT scan finding she was severely constipated. She states she did a cleanse which resolved the pain but now it has returned. After discussing with patient and chart review, the patient/automatic coil machine operator were instructed to schedule with GI Appointment was scheduled with Adore Oviedo APRN.PLY BANDER May 07, 2023 10:58 AM documented in this encounterMi[facility]11-30-2023 History of Present illness Narrative* Marcelina Madrigal MD - 04/16/2023 9:19 AM EST 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 Phyllis Sanchez is a 72 year old female who presents for problem visit. HPI: Patient presents with a bulge at her vaginal opening. It gets worse when she's on her feet. She fist noticed it on Thanksgiving. Patient denies problems with emptying her bladder or bowels. 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 Off medication at age 19. PAST SURGICAL HISTORY Procedure Laterality Date COLONOSCOPY FLX DX W/COLLJ SPEC WHEN PFRMD 07/02/2018 Colonoscopy 10 yr interval PAST SURGICAL HISTORY OF Right 04/28/2022 partially torn maniscus repair S MENISCAL REPAIR OUT/IN Left FAMILY HISTORY Problem Relation Age of Onset Coronary Artery Disease Mother Ischemic Heart Disease Mother Stroke Mother other (Other) Father CO poisoning at factory Heart Sister heart murmur Cancer Brother Throat cancer Autism Brother other (lung) Brother pneumonia Diabetes Maternal Grandmother No Known Problems Daughter No Known Problems Son No Known Problems Son Breast Cancer Maternal Aunt Social History Tobacco Use Smoking status: Former Packs/day: 1.00 Years: 9.00 Additional pack years: 0.00 Total pack years: 9.00 Types: Cigarettes Start date: 05/18/1973 Quit date: 05/18/1984 Years since quittin.9 Smokeless tobacco: Never Vaping Use Vaping Use: Never used Substance Use Topics Alcohol use: Yes Comment: 1-2 glasses a few times a week Drug use: No Current Outpatient Medications Medication Sig alendronate (FOSAMAX) 35 mg tablet Take 1 tablet by mouth one time a week. fluticasone (FLONASE) 50 mcg/actuation nasal spray Use 2 Sprays in each nostril once daily. Rinse mouth after use. vit C/E/cuperic/zinc/lutein (PRESERVISION LUTEIN ORAL) Take by mouth twice daily. glucosamine/chondr craft A sod (GLUCOSAMINE-CHONDROITIN) 750-600 mg tab Take by mouth twice daily. cyanocobalamin (VITAMIN B-12) 1,000 mcg tab Take 1 tablet by mouth once daily. calcium carbonate (CALCIUM 600) 600 mg calcium (1,500 mg) tab Take 0.5 tablets by mouth once daily. No current facility-administered medications for this visit. Allergies As of Date: 04/16/2023 (No Known Allergies) Fully Assessed 04/16/2023 . Expanded ROS: N/A Allergies and current medication updated:Yes EXAM: BP 138/80 Wt 102 lb 9.6 oz (46.5kg) GENERAL: pleasant, female in no apparent distress PELVIC: external genitalia normal, no vulvar lesions, no cervical lesions, normal appearing perineal body and perianal region; atrophic vagina. Cystocele & uterine prolapse ASSESSMENT AND PLAN: 72yo female with cystocele & uterine prolapse Discussed R/B/A and patient will proceed with urogyn consult Medical Decision Making: Problems: Moderate: New problem with uncertain prognosis Risk: Low: Low risk from testing/treatment Medical Decision Making Level: 3 - Low Marcelina Madrigal MD documented [facility]10-[facility]23 Miscellaneous Notes* Telephone Encounter - Gisela Navarrete RN - 03/10/2023 1:02 PM EDT Called pt and given results and Christina's recommendations. * Telephone Encounter - Christina Martin APRN.PLY BANDER - 03/10/2023 10:17 AM EDT Patient with a fracture of her 4th toe. It is not displaced which means this should heal well and can take 4 weeks to fully heal. Typically I would order a shoe to wear but this occurred already a few weeks ago so unsure this would be helpful. She needs to wear supportive shoes with firm sole and allow for rest. Can take ibuprofen or tylenol as needed for pain and elevate as able. F/u for no improvement of worsening of symptoms. Thank you Christina Martin APRN.RAS documented in this encounterMi[facility]10-23-2023 Miscellaneous Notes* Letter - Coordinator, Mammography - 03/09/2023 3:01 PM EDT March 10, 2023 PID: [id number] Phyllis Lopes [address] [place] [address] Dear Jean-Pierre Sanchez, We are pleased to inform you that the results of your recent breast imaging exam on 03/06/2023 are normal. Your mammogram demonstrates that you have dense breast tissue, which could hide abnormalities. Dense breast tissue, in and of itself, is a relatively common condition. Therefore, this information is not provided to cause undue concern; rather, it is to raise your awareness and promote discussion with your health care provider regarding the presence of dense breast tissue in addition to other riskfactors. Early detection of cancer is very important. We also understand recommendations regarding breast cancer screening are controversial. Please discuss with your primary care provider which strategy is best for you and whether a mammogram is right for you. Your imaging studies and report will be [facility] as part of [facility] permanent medical record and are available for your continuing care. Thank you for allowing us to help in meeting your health care needs. Sincerely, Dr. Kamara Interpreting Radiologist [facility] (Normal over 40) documented in this encounterMi[facility]10-20-2023 History of Present illness Narrative* Shaila Orozco, (R) - 03/06/2023 9:50 AM EDT Radiology Service Progress Note PATIENT NAME: Phyllis Sanchez DATE OF SERVICE: March 06, 2023 TIME: 9:39 AM PATIENT IDENTITY VERIFICATION COMPLETED USING TWO (2) IDENTIFIERS: Name and Date of confirmedby patient verbally. FALL SCREENING: Has the patient had 2 falls in the last year or 1 fall with injury or currently using an Ambulatory Assistive Device (Walker, Cane, Wheelchair, Crutches, etc.)? No PATIENT GENDER DATA: Female. status: : No status: NO. PATIENT RELEVANT IMPLANT DATA REVIEWED: Not Applicable RADIOLOGY DEPARTMENT: Mammography PERIPHERAL IV DATA: Not applicable SIGNED BY: RT Marleny(R) March 06, 2023 9:39 AM documented in this encounterMi[facility]10-19-2023 History of Present illness Narrative* Genny Santiago RT(R) - 03/05/2023 8:50 AM EDT Radiology Service Progress Note PATIENT NAME: Phyllis Sanchez DATE OF SERVICE: March 05, 2023 TIME: 8:52 AM PATIENT IDENTITY VERIFICATION COMPLETED USING TWO (2) IDENTIFIERS: Name and Date of confirmedby patient verbally. FALL SCREENING: Has the patient had 2 falls in the last year or 1 fall with injury or currently using an Ambulatory Assistive Device (Walker, Cane, Wheelchair, Crutches, etc.)? No PATIENT GENDER DATA: Female. status: : No status: NO. PATIENT RELEVANT IMPLANT DATA REVIEWED: Yes RADIOLOGY DEPARTMENT: General X-ray: Exam(s) Completed: Lower Extremity X- Ray(s): Foot, Right and Wt. Bearing PERIPHERAL IV DATA: Not applicable SIGNED BY: RT Daisy(R) March 05, 2023 8:52 AM documented in this encounterMi[facility]10-19-2023 History of Present illness Narrative* Christina Martin APRN.CNP - 03/05/2023 8:06 AM EDT CC: Patient presents with: Recheck: 6 month follow up Immunizations: Flu vaccination HPI Phyllis Sanchez is a 72 year old female who presents today for routine follow up. Osteopenia with high risk of fracture: Last BMD was March of 2021 and started on fosamax. Has taken but not had since November as they never refilled it and she was unsure how to get a hold of her mail in pharmacy. Takes vit d and calcium supplement. No regular weight bearing exercises. Right 4th toe was forcefully stubbed under a rocking chair a few weeks ago. Had instant pain to right 4th toe extending into top of right foot. States pain has not decreased and constantly aches especially at night. Pain slightly increases with walking and top of foot hurts more when wearing shoes.Is still swollen but denies redness, fever, chills, wound, or drainage. Lower abdominal pain every morning. Can take up to 15-30 minutes to stop after urinating but typically stops soon after she urinates has had for the past year. Always urinates before she goes to bed,sleep average of 6 hour, then wakes up in lower abdominal pain. No abdominal pain for the rest of the day. Denies any dark or foul smelling urine, difficulty urinating, or blood in urine. Pain does not depend on what she drinks or eats before bed. REVIEW OF SYSTEMS General: no fevers, no chills, no night sweats, no recurrent infections, no change in appetite, no change in energy, and no significant changes in weight Respiratory: no cough, no wheezing, no shortness of breath, no hemoptysis Cardiovascular: no chest pain, no chest pressure, no palpitations, and no swelling GI: No nausea, vomiting, or diarrhea Neurologic: No headache, weakness, numbness, tingling, dizziness, memory loss, syncope. PAST MEDICAL HISTORY Diagnosis Date Chronic left-sided low back pain without sciatica 05/22/2018 Closed fracture dislocation of multiple fingers 1986 right hand caught in conveyor belt Detached retina, left 2005 H/O ganglion cyst Seizure disorder (HCC) 1967 on medication in her teens. Off medication at age 19. PAST SURGICAL HISTORY Procedure Laterality Date COLONOSCOPY FLX DX W/COLLJ SPEC WHEN PFRMD 07/02/2018 Colonoscopy 10 yr interval S MENISCAL REPAIR OUT/IN Left ALLERGIES Patient has no known allergies. MEDICATIONS alendronate (FOSAMAX) 35 mg tablet Take 1 tablet by mouth one time a week. fluticasone (FLONASE) 50 mcg/actuation nasal spray Use 2 Sprays in each nostril once daily. Rinse mouth after use. vit C/E/cuperic/zinc/lutein (PRESERVISION LUTEIN ORAL) Take by mouth twice daily. glucosamine/chondr craft A sod (GLUCOSAMINE-CHONDROITIN) 750-600 mg tab Take by mouth twice daily. cyanocobalamin (VITAMIN B-12) 1,000 mcg tab Take 1 tablet by mouth once daily. calcium carbonate (CALCIUM 600) 600 mg calcium (1,500 mg) tab Take 0.5 tablets by mouth once daily. FAMILY HISTORY Problem Relation Age of Onset Coronary Artery Disease Mother Ischemic Heart Disease Mother Stroke Mother other (Other) Father CO poisoning at factory Heart Sister heart murmur Cancer Brother Throat cancer Autism Brother other (lung) Brother pneumonia Diabetes Maternal Grandmother No Known Problems Daughter No Known Problems Son No Known Problems Son Breast Cancer Maternal Aunt Social History Tobacco Use Smoking status: Former Packs/day: 1.00 Years: 9.00 Additional pack years: 0.00 Total pack years: 9.00 Types: Cigarettes Start date: 05/18/1973 Quit date: 05/18/1984 Years since quittin.8 Smokeless tobacco: Never Vaping Use Vaping Use: Never used Substance Use Topics Alcohol use: Yes Comment: 1-2 glasses a few times a week Drug use: No PHYSICAL EXAM BP 116/74 Pulse 64 Resp 16 Wt 47.2 kg (104 lb) SpO2 97% BMI 20.31 kg/m General Appearance: well appearing, in no acute distress, alert Pysch: mood and affect broad and appropriate Eyes: conjunctiva pink and moist, no icterus, sclera white, non-injected Neck: Thyroid normal size and symmetric without palpable nodules, No adenopathy Lymph nodes: No cervical lymphadenopathy, No supraclavicular lymphadenopathy, Lungs: Lungs clear to auscultation. No wheezing, rhonchi, rales. Heart: RRR without murmur, gallop, or rubs. No ectopy Abdomen: Abdomen soft, non-tender. Bowel sounds normal. No masses, organomegaly Right force variation equipment tender to 4th right toe at PIP and extending to top of right foot. no bruising or obvious deformity. 4th toe with edema, Health maintenance reviewed with patient: RSV Vaccine(1 - 1-dose 60+ series) Never done Mammogram Screening due on 01/16/2023 Influenza Vaccine(1) due on 01/16/2023 Covid-19 Vaccine(4 - season) due on 01/16/2023 DTaP,Tdap,Td Vaccine(1 - Tdap) due on 09/02/2023 Diabetes Screening due on 09/02/2025 Lipid Screening due on 09/03/2027 Colorectal Cancer Screening due on 07/02/2028 Bone Density Screening Completed Advance Directive Discussion Completed Depression Assessment Completed Shingrix Vaccine Completed Pneumococcal Vaccine: 65+ Completed Hepatitis C Screening Discontinued DATA REVIEWED: No new labs ASSESSMENT/PLAN: 1. Osteopenia, unspecified location - ICD9: 733.90, ICD10: M85.80 (primary diagnosis) - continue tx with alendronate (Fosamax) - Reviewed the need for Calcium and Vitamin D supplements and weight bearing exercise as tolerated - ALENDRONATE 35 MG TABLET 2. Bladder pain - ICD9: 788.99, ICD10: R39.89 - assessment normal and no concerns outside of first waking up. Patient concerned with this as it is ongoing, will send to urology for further evaluation. - try not to drink fluid a few hours prior to going to bed. - URINALYSIS WITH MICROSCOPIC, REFLEX CULTURE - BASIC METABOLIC PNL - CONSULT TO UROLOGY - CBC 3. Toe pain, right - ICD9: 729.5, ICD10: M79.674 - still swollen and tender weeks later. Will xray - wear supportive shoes and can take ibuprofen as directed on box and use ice as needed for pain. Elevate throughout the day when able - XR TOE AP/LAT/OBL RIGHT 4. Right foot pain - ICD9: 729.5, ICD10: M79.671 As above - XR FOOT GENERAL 3V AP/LAT/OBL RIGHT 5. Need for influenza vaccination - ICD9: V04.81, ICD10: Z23 - INFLUENZA VACCINE, PRSV FREE, AGE 65+ YR, HIGH DOSE, QUADRIVALENT (FLUZONE HIGH-DOSE) Prescription instructions reviewed with patient as applicable. Potential red flag symptoms discussed with the patient. Reviewed appropriate action plan to take if red flag symptoms occur. Patient agreeable to treatment plan. Christina Maritn APRN.CNP documented in this encounterMi[facility]04-17-[facility]23 History of Present illness Narrative* Genny Santiago RT(R) - 09/01/2022 2:20 PM EDT Radiology Service Progress Note PATIENT NAME: Phyllis Sanchez DATE OF SERVICE: September 01, 2022 TIME: 2:21 PM PATIENT IDENTITY VERIFICATION COMPLETED USING TWO (2) IDENTIFIERS: Name and Date of confirmedby patient verbally. FALL SCREENING: Has the patient had 2 falls in the last year or 1 fall with injury or currently using an Ambulatory Assistive Device (Walker, Cane, Wheelchair, Crutches, etc.)? No PATIENT GENDER DATA: Female. status: : No status: NO. PATIENT RELEVANT IMPLANT DATA REVIEWED: Yes RADIOLOGY DEPARTMENT: General X-ray: Exam(s) Completed: Spine X-Ray(s): Lumbar AP / LAT / L5-S1 PERIPHERAL IV DATA: Not applicable SIGNED BY: RT Daisy(Vladimir) September 01, 2022 2:21 PM documented in this encounterMiami [facility]02-24-2023 History of Present illness Narrative* Marlen Madrigal APRN.PLY BANDER - 07/11/2022 1:08 PM EST CC: Patient presents with: Sore Throat: X3 days, intermittent cough HPI: Phyllis Sanchez is a 71 year old female who presents to the office with complaint of cough, nonproductive and sore throat for a few days. Symptoms are worsening Associated symptoms includes sore throat. Denies fever, nausea, vomiting , and diarrhea. Treatments tried include nothing so far. with no relief of symptoms. Sick contacts: unknown. History of asthma, frequent episodes of bronchitis, chronic bronchitis, bronchiectasis or COPD: No Smoker: No Seasonal/environmental allergies: No The ROS is otherwise negative. The patient's pmh, medications, allergies, and past visits are reviewed. PHYSICAL EXAM: BP 128/88 Pulse 97 Temp 36.7 C (98.1 F) Resp 18 Wt 46.1 kg (101 lb 9.6 oz) SpO2 97% BMI19.84 kg/m General appearance: alert, cooperative, pleasant, in no acute distress Head: Normocephalic Eyes: EOM's intact, conjunctiva pink and moist, no icterus, sclera white, non-injected Ears: Right ear: External ear/canal- Normal, TM - clear with good landmarks. Left ear: External ear/canal- Normal, TM - clear with good landmarks Oropharynx:moist without lesions, mild erythema, exudates or tonsillar hypertrophy. Heart: Negative. RRR without obvious murmur, gallop, or rubs. No ectopy. Lungs: clear to auscultation, without rales or wheeze, good air exchange PAST MEDICAL HISTORY Diagnosis Date Chronic left-sided low back pain without sciatica 05/22/2018 Closed fracture dislocation of multiple fingers 1986 right hand caught in conveyor belt Detached retina, left 2005 H/O ganglion cyst Seizure disorder (HCC) 1967 on medication in her teens. Off medication at age 19. PAST SURGICAL HISTORY Procedure Laterality Date COLONOSCOPY FLX DX W/COLLJ SPEC WHEN PFRMD 07/02/2018 Colonoscopy 10 yr interval ALLERGIES Patient has no known allergies. MEDICATIONS vit C/E/cuperic/zinc/lutein (PRESERVISION LUTEIN ORAL) Take by mouth twice daily. glucosamine/chondr craft A sod (GLUCOSAMINE-CHONDROITIN) 750-600 mg tab Take by mouth twice daily. alendronate (FOSAMAX) 35 mg tablet Take 1 tablet by mouth one time a week. cyanocobalamin (VITAMIN B-12) 1,000 mcg tab Take 1 tablet by mouth once daily. calcium carbonate (CALCIUM 600) 600 mg calcium (1,500 mg) tab Take 0.5 tablets by mouth once daily. FAMILY HISTORY Problem Relation Age of Onset Coronary Artery Disease Mother Ischemic Heart Disease Mother Stroke Mother other (Other) Father CO poisoning at factory Heart Sister heart murmur Cancer Brother Throat cancer Autism Brother other (lung) Brother pneumonia Diabetes Maternal Grandmother No Known Problems Daughter No Known Problems Son No Known Problems Son Breast Cancer Maternal Aunt Social History Tobacco Use Smoking status: Former Packs/day: 1.00 Years: 9.00 Pack years: 9.00 Types: Cigarettes Start date: 05/18/1973 Quit date: 05/18/1984 Years since quittin.1 Smokeless tobacco: Never Vaping Use Vaping Use: Never used Substance Use Topics Alcohol use: Yes Alcohol/week: 7.5 standard drinks Types: 3 Glasses of Wine (5oz) per week Comment: wine 5-6 days/week Drug use: No ASSESSMENT/PLAN: 1. Sore throat - ICD9: 462, ICD10: J02.9 - STREP A MOLECULAR (POC) - neg Viral in nature OTC medication for supportive therapy. Potential red flag symptoms discussed with the patient. Reviewed appropriate action plan to take if red flag symptoms occur. Patient agreeable to treatment plan. Marlen Madrigal APRN.RAS documented in this encounterMiami [facility]01-18-2023 Discharge summary Author Rohan Colby [facility] June 06, 2022 2:52pm Note Date/Time June 04, 2022 8 :25am [facility] Physical [facility] [address] [place] [address]. [address] [place] [address] / REHABILITATION SERVICES DISCHARGE SUMMARY MR#: [id number] Acct: [id number] Name: PHYLLIS SANCHEZ Rep #: [id number] : 1950 71 From: Cert. WINSTON SheltonT, OCS Referring Dr.: Dr. Benjamín Green MD Status: REG RCR Insurance: MEDICARE PART A B [facility] It has been my pleasure to treat PHYLLIS SANCHEZ referred by Dr. Benjamín Green MD, with the diagnosis of OTHER TEAR OF MEDIAL MINISCUS ,CURRENT INJURY RIGHT for a total of 8 visit(s). Discharge Date: 06/04/22 Please see the following information for a summary of their discharge status. Subjective: Doing well. Seen DR doing well Objective/Function: MMT: 09/19. GAIT: RECIPROCAL PATTERN. AROM: 0-140 DEGREES SUPINE FLEXION Goal 1:: I with HEP for right arthroscopic Goal Progress: Goal Met Goal 2:: Patient to [id number] % improvement with improved function with ADLS' Goal Progress: Goal Met Goal 3:: Patient to improve AROM symmetrical right > to left to ascend /descend alternating Goal Progress: Goal Met Goal 4:: Patient lorie improve peak force quads/hams by 10 to improve function Goal Progress: Goal Met Goal 5:: Patient to improve LFES score by 5 points to function with gait and ADLS Goal Progress: Goal Met Plan: D/C Discharge Comments: HEP If there are questions or concerns regarding this patient's physical therapy, please feel free to call me at [phone]. Thank you for the referral of thispatient. Sincerely, Rohan Colby PT, Cert MDT, OCS Balance/Gait/Functional tests - Balance/Special Test Scores Lower Extremity Functional Score: 68 <Electronically signed by Rebeca Mckeon PT. T, OCS> 06/06/22 8239 CC: NANO Pelletier; Dr. Benjamín Green MD ~ MAXX Signed [facility] Work Phone: 1(167) 358-174612-12-2022 History of Present illness Narrative* Jerrell Sarmiento MD - 04/28/2022 10:58 AM EST Patient presents with: Sinus Problem: sinus pressure, drainage, headache, chills and bodyaches x 6 days HPI: Feeling sick for 7 days. Had right knee scopy for meniscus tear 5 days ago. Left rib fracture 8 days ago from slipping on ice. Positive symptoms: Sinus pressure, foul smell (like something is ), parietal headaches, Nasal Congestion, Rhinorrhea, Post nasal drainage, Chills, Body Aches, Negative symptoms: Cough, Shortness of breath, Wheezing, Sore throat, Vomiting, Diarrhea, OTC: Tylenol with Codeine, percocet Has not had known COVID illness. PAST MEDICAL HISTORY Diagnosis Date Chronic left-sided low back pain without sciatica 05/22/2018 Closed fracture dislocation of multiple fingers 1986 right hand caught in conveyor belt Detached retina, left 2005 H/O ganglion cyst Seizure disorder (HCC) 1967 on medication in her teens. Off medication at age 19. MEDICATIONS: Current Outpatient Medications Medication Sig vit C/E/cuperic/zinc/lutein (PRESERVISION LUTEIN ORAL) Take by mouth twice daily. glucosamine/chondr craft A sod (GLUCOSAMINE-CHONDROITIN) 750-600 mg tab Take by mouth twice daily. alendronate (FOSAMAX) 35 mg tablet Take 1 tablet by mouth one time a week. cyanocobalamin (VITAMIN B-12) 1,000 mcg tab Take 1 tablet by mouth once daily. calcium carbonate (CALCIUM 600) 600 mg calcium (1,500 mg) tab Take 0.5 tablets by mouth once daily. No current facility-administered medications for this visit. ALLERGIES: ALLERGIES No Known Allergies VITALS: BP 122/80 Pulse 82 Temp 37.2 C (99 F) Resp 16 Wt 44.6 kg (98 lb 6.4 oz) SpO2 96% BMI 19.22 kg/m PHYSICAL EXAM: GEN: mildly ill appearing HEENT: PERRL, EOMI, conjunctiva clear Ears: canals clear. TMs without erythema, bulge, or effusion Sinuses: non-tender frontal sinus, non-tender maxillary sinuses Throat: moist mucous membranes, no erythema, no exudate Neck: supple, no thyromegaly, no lymphadenopathy HEART: regular rate and rhythm, no murmurs LUNGS: distant but clear to auscultation, no wheezes or crackles, no increased WOB; symmetric to percussion ASSESSMENT/PLAN: 1. Acute non-recurrent sinusitis, unspecified location - ICD9: 461.9, ICD10: J01.90 - suspect sinusitis but differential includes COVID-19 (chills, headache, alteration of smell). Augmentin Rx sent. - 2019 CORONAVIRUS - may stop antibiotic if negative. Jerrell Sarmiento MD documented in this encounterMiami [facility]12-04-2022 Hospital Discharge instructions Additional Instructions Please follow-up with primary care in 1 to 2 weeks or earlier if need be Please take a deep breath every 30 minutes to help keep pneumonia from forming You need to speak with your orthopedic surgeon to find out if this will affect your surgery date There were nodules noted on your chest CT and it is recommended that you get a follow-up CT in 6 months to ensure stability[facility] Work Phone: 1(566) 579-677409-22-2022 Instructions* Patient Instructions* Tanya Dobson APRN.PLY BANDER - 02/06/2022 9:51 AM EDT Avoid bladder irritants - spicy, citrus, tomatoes, smoking, coffee, tea, pop, carbonation, artificial sweeteners, alcohol documented in this encounterMiami [facility] Hospital09-22-2022 History of Present illness Narrative* Tanya Dobson APRN.RAS - 02/06/2022 9:17 AM EDT 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 Phyllis is a 71 year old who presents for an annual gynecologic exam with complaints, urinaryfrequency . Has bladder pressure with urge to void upon awakening for months. Drinks water and thenneeds to void 10-15 minutes later. Acknowledges that she probably does not drink enough fluids. Drinks 2 cups coffee daily, lemon in water 1-2 times a day. Denies dysuria, blood in urine, cloudy urine or urgency. UA normal at PCP in June. Postmenopausal: Yes since age 51 HRT use: No. History of abnormal pap: No Last mammogram: 01/16/2022 normal History of abnormal mammogram: No Sexually active: Yes, occasionally History of STDS: None Patient concerns for STD exposure: No. Time with current partner: 38 years Pain with intercourse: No Postcoital bleeding: No Vaginal dryness: No, sometimes uses lubricant for SI Documentation from previous visit of 12/20/2020 was copied and pasted, documentation has been reviewed and edited as necessary for today's visit. 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 Off medication at age 19. PAST SURGICAL HISTORY Procedure Laterality Date COLONOSCOPY FLX DX W/COLLJ SPEC WHEN PFRMD 07/02/2018 Colonoscopy 10 yr interval FAMILY HISTORY Problem Relation Age of Onset Coronary Artery Disease Mother Ischemic Heart Disease Mother Stroke Mother other (Other) Father CO poisoning at factory Heart Sister heart murmur Cancer Brother Throat cancer Autism Brother other (lung) Brother pneumonia Diabetes Maternal Grandmother No Known Problems Daughter No Known Problems Son No Known Problems Son Breast Cancer Maternal Aunt SOCIAL HISTORY Social History Tobacco Use Smoking status: Former Packs/day: 1.00 Years: 9.00 Pack years: 9.00 Types: Cigarettes Start date: 05/18/1973 Quit date: 05/18/1984 Years since quittin.7 Smokeless tobacco: Never Vaping Use Vaping Use: Never used Substance Use Topics Alcohol use: Yes Alcohol/week: 7.5 standard drinks Types: 3 Glasses of Wine (5oz) per week Comment: wine 5-6 days/week Drug use: No REVIEW OF SYSTEMS Abdomen: No abdominal pain, nausea, vomiting, diarrhea, or constipation. No bloating, early satiety, indigestion, or increased flatulence. Bladder: See HPI. No dysuria, gross hematuria, urinary urgency, Occasional stress incontinence Breast: No breast lumps, nipple d/c, overlying skin changes, redness or skin retraction Allergies and current medication updated:Yes EXAM: BP 126/82 Resp 14 Ht 5' 0 (1.52m) Wt 102 lb (46.3kg) BMI 19.92 kg/(m^2). GENERAL: pleasant, female in no apparent distress HEENT: Normocephalic, atraumatic, mucus membranes moist, and no lesions NECK: Supple, full range of motion, no adenopathy, and thyroid normal DERMATOLOGY: Normal, without lesions, non-icteric, and non-hirsute BREAST: soft, non-tender, symmetric, no dominant mass, normal nipple-areolar complex, no lymphadenopathy, and no nipple discharge CHEST: Normal inspiratory effort ABDOMEN: soft, non-tender, and no masses PELVIC: external genitalia normal, normal Bartholin's glands, urethra, [place]'s glands, no vulvar lesions, no cervical lesions, physiologic discharge present, normal appearing perineal body and perianal region, + vaginal atrophy, cystocele 1st degree BIMANUAL: uterus normal size, shape and consistency, no adnexal masses, and non-tender RECTOVAGINAL: deferred. NEURO: alert and oriented x3,exam grossly non-focal EXTREMITIES: normal ASSESSMENT/PLAN: 1) Health maintenance: Pap/HPV screening no longer needed Mammogram ordered Mammogram up to date Nutrition, exercise and routine health maintenance exams reviewed. Calcium/Vitamin D supplementation information provided. Colon cancer screening: up to date with screening 2018 BMD: up to date 2020 osteopenia Fosamax per PCP 2. Urinary frequency - ICD9: 788.41, ICD10: R35.0 chronic UA negative Avoid bladder irritants - spicy, citrus, tomatoes, smoking, coffee, tea, pop, carbonation, artificial sweeteners 3. Cystocele, midline - ICD9: 618.01, ICD10: N81.11 - 1st degree 4) Follow up one year or sooner as needed Tanya Dobson APRN.PLY BANDER documented in this encounterMiami [facility] Hospital09-01-2022 Miscellaneous Notes* Letter - Mammography Coordinator - 01/16/2022 9:01 AM EDT January 16, 2022 PID: [id number] Phyllis Sanchez [address] [place] [address] Dear Ms. Sanchez, We are pleased to inform you that the results of your recent breast imaging exam on 01/16/2022 are normal. Your mammogram demonstrates that you have dense breast tissue, which could hide abnormalities. Dense breast tissue, in and of itself, is a relatively common condition. Therefore, this information is not provided to cause undue concern; rather, it is to raise your awareness and promote discussion with your health care provider regarding the presence of dense breast tissue in addition to other riskfactors. Early detection of cancer is very important. We also understand recommendations regarding breast cancer screening are controversial. Please discuss with your primary care provider which strategy is best for you and whether a mammogram is right for you. Your imaging studies and report will be kept [facility] as part of your permanent medical record and are available for your continuing care. Thank you for allowing us to help in meeting your health care needs. Sincerely, Dr. Raymundo Interpreting Radiologist [facility] (Normal over 40) documented in this encounterMiami Valley Hospital09-01-2022 History of Present illness Narrative* RT Marleny(R) - 01/16/2022 7:30 AM EDT Radiology Service Progress Note PATIENT NAME: Phyllis Sanchez DATE OF SERVICE: January 16, 2022 TIME: 7:32 AM PATIENT IDENTITY VERIFICATION COMPLETED USING TWO (2) IDENTIFIERS: Name and Date of confirmedby patient verbally. FALL SCREENING: Has the patient had 2 falls in the last year or 1 fall with injury or currently using an Ambulatory Assistive Device (Walker, Cane, Wheelchair, Crutches, etc.)? No PATIENT GENDER DATA: Female. status: : No status: NO. PATIENT RELEVANT IMPLANT DATA REVIEWED: Not Applicable RADIOLOGY DEPARTMENT: Mammography PERIPHERAL IV DATA: Not applicable SIGNED BY: RT Marleny(Vladimir) January 16, 2022 7:32 AM documented in this encounterMiami Valley Hospital04-15-2022 Miscellaneous Notes* Telephone Encounter - Jolanta Navarrete RN - 08/30/2021 2:26 PM EDT Patient has been identified by name and date of : Yes Patient phones for refill(s): Pending Prescriptions Disp Refills ALENDRONATE 35 MG TABLET 12 tablet 3 Sig: Take 1 tablet by mouth one time a week. INGRID: No Date of last office visit with pcp: 06/18/2021 Future appt: none Last 2 Encounter Wt Readings: Date: Wt: 03/18/2021 47.6 kg (105 lb) 12/20/2020 46.3 kg (102 lb) Previous labs/tests for medication: Blood Pressure: BUN (mg/dL) Date Value 06/18/2021 16 Sodium (mmol/L) Date Value 06/18/2021 142 Last 1 Encounter BP Readings: Date: BP: 06/18/2021 148/100 Liver Function: ALT (U/L) Date Value 06/18/2021 14 AST (U/L) Date Value 06/18/2021 23 Please advise. Thank you. Jolanta Navarrete RN documented in this encounterMiami Valley Hospital02-02-2022 History of Present illness Narrative* Jada Melendez RT(R) - 06/19/2021 11:10 AM EST Radiology Service Progress Note PATIENT NAME: Phyllis Sanchez DATE OF SERVICE: June 19, 2021 TIME: 11:11 AM PATIENT IDENTITY VERIFICATION COMPLETED USING TWO (2) IDENTIFIERS: Name and Date of confirmedby patient verbally. FALL SCREENING: Has the patient had 2 falls in the last year or 1 fall with injury or currently using an Ambulatory Assistive Device (Walker, Cane, Wheelchair, Crutches, etc.)? No PATIENT GENDER DATA: Female. status: : No status: NO. PATIENT RELEVANT IMPLANT DATA REVIEWED: Not Applicable RADIOLOGY DEPARTMENT: General X-ray: Exam(s) Completed: Chest X-Ray PERIPHERAL IV DATA: Not applicable SIGNED BY: RT Sophia(R) June 19, 2021 11:11 AM documented in this encounterMiami Valley Hospital11-01-2021 History of Present illness Narrative* Genny Santiago RT(R) - 03/18/2021 4:20 PM EDT Radiology Service Progress Note PATIENT NAME: Phyllis Sanchez DATE OF SERVICE: March 18, 2021 TIME: 4:24 PM PATIENT IDENTITY VERIFICATION COMPLETED USING TWO (2) IDENTIFIERS: Name and Date of confirmedby patient verbally. FALL SCREENING: Has the patient had 2 falls in the last year or 1 fall with injury or currently using an Ambulatory Assistive Device (Walker, Cane, Wheelchair, Crutches, etc.)? No PATIENT GENDER DATA: Female. status: : No status: NO. PATIENT RELEVANT IMPLANT DATA REVIEWED: Yes RADIOLOGY DEPARTMENT: General X-ray: Exam(s) Completed: Spine X-Ray(s): Lumbar AP / LAT / L5-S1 Pelvis X-Ray: sacroiliac joints PERIPHERAL IV DATA: Not applicable SIGNED BY: PRIMO Villa) March 18, 2021 4:24 PM [facility]The [facility] Author Rodolfo Huffman [facility] Note Date/Time November 08, 2024 2:19 pm [facility] Medical Records Department [address] [place] [address] Pre-Anesthesia Evaluation 11/08/24 1413 MR#: [id number] Acct: [id number] Name: PHYLLIS SANCHEZ Rep #:[id number] : 1950 73 From: Rodolfo Huffman MD PCP: CHRISTINA MARTIN LITIGATION SUPPORT ANALYST-C Status:REG SDC Y Race: C Location: [place] [address] ASA Classification* ASA Classification ASA Classification: 2 Assessment & Plan Anesthesia* Anesthesia Assessment Anesthesia Assessment: Discussed sedation and/or anesthesia options, risks, benefits, and alternatives with patient/parents/legal guardian/POA. Questions invited. The patient/parents/legal guardian/POA seems to understand and agrees to proceedwith anesthesia plan. Reviewed the physical assessment, medical history, allergy history and patient home medications list prior to surgery/procedure/anesthetic and documented any changes. Performed airway and anesthesia risk assessments. Anesthesia Type Anesthesia Type: MAC History Source History Obtained from:: Patient and Chart Anesthesia Focused Assessment* Temperature: 98.9 F Pulse Rate: 74 Blood Pressure: 141/81 Respiratory Rate: 16 Pulse Ox: 100 Oxygen Delivery Method: Room Air Airway Assessment Mouth opens: >3 cm Mallampati Score: II Teeth Condition: Intact Neck Range of motion (ROM): Full ROM Labs Anesthesia Preop lab: CBC WBC 4.4 K/mm3 (4.4-11.0) 03/21/24 07:35 03/21/24 RBC 4.79 M/mm3 (4.2-5.4) 03/21/24 07:35 03/21/24 Hgb 14.5 g/dL (12.0-15.0) 03/21/24 07:35 03/21/24 Hct 43.9 % (37-47) 03/21/24 07:35 03/21/24 Plt Count 225 K/mm3 (150-450) 03/21/24 07:35 03/21/24 CHEMISTRY Potassium 4.0 mmol/L (3.5-5.1) 03/21/24 07:35 03/21/24 Sodium 139 mmol/L (136-145) 03/21/24 07:35 03/21/24 BUN 15 mg/dL (7-18) 03/21/24 07:35 03/21/24 Creatinine 0.77 mg/dL (0.55-1.02) 03/21/24 07:35 03/21/24 Glucose 94 mg/dL (74-106) 03/21/24 07:35 03/21/24 COAG Pre-Assessment Diagnosis/Proposed Procedure Planned Operative Procedure(s): EGD Anesthesia History 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 When Was Last Pacemaker Check QUESTION #4 FULL TEXT: You/Your Family Experience fever (hyperthermia) with Anesthesia Last Oral Intake Last Oral intake: Last Oral Intake NPO since 09:45 11/08/24 13:42 Meds taken in AM with sips of No 11/08/24 13:42 water? 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 operator Female Yes 11/03/24 13:18 HX of Motion Sickness No 11/03/24 13:18 HX of N/V After Surgery Yes 11/03/24 13:18 Non-Smoker Yes 11/03/24 13:18 Duration of Surgery greater No 11/03/24 13:18 than 60 minutes Number of Risk Factors 3 11/03/24 13:18 PONV Score Moderate Risk 11/03/24 13:18 Height & Weight Height & Weight: Anesthesia: Height & Weight Height 5 ft 11/08/24 13:42 Weight: 47.6 kg 11/08/24 13:42 Body Mass Index (BMI) 20.5 11/08/24 13:42 Respiratory Assessment Respiratory Assessment - hat brim and crown laminating operator: Respiratory Tract Infection Hx - 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 Has anyone observed you stop No 11/03/24 13:18 breathing during sleep? STOP Results Negative 11/03/24 13:18 QUESTION #5 FULL TEXT : Do you snore loudly (louder than talking or can be heard through closed doors)? 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 Specify any problems Hx of Preganancy in last 3 N/A 11/03/24 13:18 Months Nurse Filling Out Transfusion NBUCHER 11/03/24 13:18 & Questions: Date: 11/03/24 11/03/24 13:18 Time: 13:18 11/03/24 13:18 Patient unable to answer at this time (ie. 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: /Reproductive Hx- hat brim and crown laminating operator Hx Now Gestational Age (in weeks): EDC: Hx Hx Para Hx Section SAB No 11/03/24 13:18 Active Medications Active Medications: Current Medications Generic Name Dose Route Start Last Admin Trade Name Freq PRN Reason Stop Dose Admin Lactated Ringer's 1,000 mls @ 15 mls/hr 11/08/24 13:15 11/08/24 13:41 IV 15 mls/hr .Q48H JACEY Administration PFSH Medical History Post-menopausal Arthritis PONV (postoperative nausea and vomiting) Leg cramps Wears glasses Alcohol use Seizures Former smoker Synovial cyst of popliteal space [Ho], right knee Tear of medial meniscus of right knee Osteoarthritis of right knee Right knee pain Home Medications ?Medication ?Instructions ?Recorded ?Last Taken ?Type calcium carbonate (Calcium 500) 500 mg PO DAILY 04/22/22 History mecobalamin (vitamin B12) 5,000 5,000 mcg PO DAILY 09/0604/22/22 History mcg disintegrating tablet vitamins A,C,F-iaei-fzqubm 4,296 1 cap PO BID 12/19/21 04/22/22 History mcg-226 mg-90 mg capsule (PreserVision AREDS) alendronate 10 mg tablet 10 mg PO QWEEK 03/31/24 Unkn own History magnesium 200 mg tablet 200 mg PO DAILY 09/13/24 Unk nown History wheat dextrin 3 gram/3.5 gram oral 1 packet PO QDAY Unknown History powder packet (Benefiber Clear Sugar Free(dextrin)) lubiprostone 8 mcg capsule 8 mcg PO BID #60 caps 10/24 Unknown Rx (Amitiza) Allergy/AdvReac Type Severity Reaction Status Date / Time No Known Allergies Allergy Verified 11/08/24 13:39 Family History Mother Hypertension CVA (cerebral vascular accident) Surgical History History of colonoscopy History of rhinoplasty (05/03/24) History of partial hysterectomy (~10/2023) History of arthroplasty of right knee (~2021) History of hand surgery Social History household members: spouse Smoking Status: Former smoker alcohol intake: current Review of Systems (Anesthesia) ROS Narrative System reviewed and no additional complaints, except as documented. 11/08/24 1419 <Electronically signed by Rodolfo forde MD> Date _ Rodolfo Huffman MD Cosigner Signature: Date CC: ~ Signed [facility] Work Phone: Consult note Author David Jeffries [facility] Note Date/Time November 08, 2024 3:01 pm [facility] Medical Records Department [address] [place] [address] Anesthesia Postop Eval I 11/08/24 1500 MR#: [id number] Acct: [id number] Name: PHYLLIS SANCHEZ Rep #:[id number] : 1950 73 From: David Jeffries PCP: CHRISTINA MARTIN, LITIGATION SUPPORT ANALYST-C Status:REG SDC Y Race: C Location: [place] [address] Anesthesia: Postop Eval I Current Vital Signs Temperature: 97.7 F Pulse Rate: 89 Blood Pressure: 129/71 Respiratory Rate: 16 Pulse Ox: 100 Oxygen Delivery Method: Room Air Assessment Airway patent: Yes Spontaneous unlabored respirations: Yes Mental status: Awake and Calm nausea: No Vomiting: No Anesthesia Complication: No Fluid Hydration Crystalloid volume administer (ml): 700 Total IV fluid infused: 700 Progress Note Anesthesia document: Postop Eval 1 completed: Yes 11/08/24 1501 <Electronically signed by David Jeffries > Date _ David Valadez Signature: Date CC: ~ Signed [facility] Work Phone: Evaluation note* Diagnosis Osteopenia, unspecified [facility] Diagnosis Encounter for screening mammogram for breast cancer Dense breast tissue on mammogram [facility] Diagnosis Encounter for routine gynecologic examination in Medicare patient- Primary Urinary frequency Cystocele, midline Encounter for screening mammogram for breast cancer Dense breast tissue [facility] Diagnosis Onset Date Resolution Status Osteoarthritis of right knee acute Right knee pain acute Osteoarthritis of right knee acute Right knee pain acute Tear of medial meniscus of right knee acute [facility] Work Phone: Evaluation note* Diagnosis Onset Date Resolution Status Osteoarthritis of right knee acute Right knee pain acute Tear of medial meniscus of right knee acute Osteoarthritis of right knee acute Right knee pain acute Synovial cyst of popliteal space [Ho], right knee acute Tear of medial meniscus of right knee acute [facility] Work Phone: Evaluation note* Diagnosis Onset Date Resolution Status Osteoarthritis of right knee acute Right knee pain acute Tear of medial meniscus of right knee acute Osteoarthritis of right knee acute Right knee pain acute Synovial cyst of popliteal space [Ho], right knee acute Tear of medial meniscus of right knee acute Osteoarthritis of right knee acute Right knee pain acute Tear of medial meniscus of right knee acute [facility] Work Phone: Evaluation note* Diagnosis Acute non-recurrent sinusitis, unspecified location- [facility] Diagnosis Onset Date Resolution Status Osteoarthritis of right knee acute Right knee pain acute Tear of medial meniscus of right knee acute Osteoarthritis of right knee acute Right knee pain acute Synovial cyst of popliteal space [Ho], right knee acute Tear of medial meniscus of right knee acute Osteoarthritis of right knee acute Right knee pain acute Tear of medial meniscus of right knee acute Tear of medial meniscus of right knee acute Tear of medial meniscus of right knee acute Synovial cyst of popliteal space [Ho], right knee acute Tear of medial meniscus of right knee acute [facility] Work Phone: Evaluation note* Diagnosis Sore throat- Primary Acute pharyngitis [facility] Diagnosis Osteopenia, unspecified location- Primary Bladder pain Other symptoms involving urinary system Toe pain, right Pain in limb Right foot pain Pain in limb Need for influenza vaccination Need for prophylactic vaccination and inoculation against influenza [facility] Diagnosis Encounter for screening mammogram for breast cancer [facility] Diagnosis Encounter for screening mammogram for breast cancer Dense breast tissue [facility]No assessment [facility] Work Phone: [facility]* Diagnosis Cystocele, midline- Primary Uterine prolapse Uterine prolapse without mention of vaginal wall prolapse documented in this encounter [facility] note* Diagnosis Cystocele, midline- Primary Mixed stress and urge urinary incontinence Mixed incontinence urge and stress (male)(female) Vaginal atrophy Postmenopausal atrophic vaginitis Uterovaginal prolapse, incomplete Rectocele Preop examination Preoperative examination, unspecified [facility] Diagnosis Onset Date Resolution Status Osteoarthritis of right knee acute Synovial cyst of popliteal space [Ho], right knee acute Tear of medial meniscus of right knee acute Osteoarthritis of right knee acute Synovial cyst of popliteal space [Ho], right knee acute Tear of medial meniscus of right knee acute [facility] Work Phone: Evaluation note* Diagnosis Osteopenia, unspecified location- Primary Encounter for screening for osteoporosis Special screening for osteoporosis Asymptomatic postmenopausal status Annual physical exam Routine general medical examination at a health care facility Uterovaginal prolapse, incomplete Cystocele, midline Rectocele [facility] Diagnosis Encounter for screening for osteoporosis Special screening for osteoporosis Asymptomatic postmenopausal status Uterovaginal prolapse, incomplete Cystocele, midline Rectocele documented in this encounter [facility] note* Diagnosis Educational circumstance- Primary Uterovaginal prolapse, incomplete Cystocele, midline Rectocele documented in this encounter [facility] note* Diagnosis Pre-operative examination- Primary Preoperative examination, unspecified Chronic left-sided low back pain without sciatica Uterovaginal prolapse, incomplete Cystocele, midline Rectocele Osteoporosis, unspecified osteoporosis type, unspecified pathological fracture presence Solitary pulmonary nodule Hx of seizure disorder Personal history of other disorders of nervous system and sense organs Uterovaginal prolapse, incomplete Cystocele, midline Rectocele * Assessment & Plan Note - Maria Fernanda Miller APRN.CNP - 10/16/2023 1:37 PM EDT Associated Problem(s): Hx of seizure disorder Assessment: remote hx during her teens, no issues since * Assessment & Plan Note - Maria Fernanda Miller APRN.CNP - 10/16/2023 1:36 PM EDT Associated Problem(s): Solitary pulmonary nodule Assessment: per outside EMR, CXR 06/2021 with no mention RESULT: Lines, tubes, and devices: None. Lungs and pleura: Bilateral apical scarring. No consolidation. No lung mass. No pleural effusion. No pneumothorax. Cardiomediastinal silhouette: Normal cardiomediastinal silhouette. Bones and soft tissues: Unremarkable. * Assessment & Plan Note - Maria Fernanda Miller APRN.CNP - 10/16/2023 1:34 PM EDT Associated Problem(s): Osteoporosis Assessment: Fosamax * Assessment & Plan Note - Maria Fernanda Miller APRN.CNP - 10/16/2023 1:33 PM EDT Associated Problem(s): Chronic left-sided low back pain without sciatica (Resolved 10/16/2023) Assessment: otc analgesics as needed [facility] Diagnosis Encounter for urine test- Primary Laboratory examination, unspecified [facility] Diagnosis Mixed stress and urge urinary incontinence- Primary Mixed incontinence urge and stress (male)(female) Uterovaginal prolapse, incomplete Cystocele, midline [facility]* Diagnosis Pre-operative examination- Primary Preoperative examination, unspecified Chronic left-sided low back pain without sciatica Uterovaginal prolapse, incomplete Cystocele, midline Rectocele Osteoporosis, unspecified osteoporosis type, unspecified pathological fracture presence Solitary pulmonary nodule Hx of seizure disorder Personal history of other disorders of nervous system and sense organs Osteopenia, unspecified location [facility] Diagnosis Right foot pain Pain in limb Toe pain, right Pain in limb [facility]* Diagnosis Pre-operative examination- Primary Preoperative examination, unspecified Chronic left-sided low back pain without sciatica Uterovaginal prolapse, incomplete Cystocele, midline Rectocele Osteoporosis, unspecified osteoporosis type, unspecified pathological fracture presence Solitary pulmonary nodule Hx of seizure disorder Personal history of other disorders of nervous system and sense organs JEMIMA (stress urinary incontinence, female)- Primary Female stress incontinence Cystocele, midline Rectocele [facility] Diagnosis Chronic right-sided low back pain without sciatica [facility] Diagnosis Chronic right shoulder pain Pain in joint, shoulder region [facility] Diagnosis Abnormal x-ray Other nonspecific (abnormal) findings on radiological and other examinations of body structure [facility]* Diagnosis Osteopenia, unspecified location DDD (degenerative disc disease), lumbar Degeneration of lumbar or lumbosacral intervertebral disc Chronic right-sided low back pain without sciatica [facility]* Diagnosis Pre-operative examination- Primary Preoperative examination, unspecified Chronic left-sided low back pain without sciatica Uterovaginal prolapse, incomplete Cystocele, midline Rectocele Osteoporosis, unspecified osteoporosis type, unspecified pathological fracture presence Solitary pulmonary nodule Hx of seizure disorder Personal history of other disorders of nervous system and sense organs Intrinsic sphincter deficiency (ISD)- Primary Intrinsic (urethral) sphincter deficiency (ISD) JEMIMA (stress urinary incontinence, female) Female stress incontinence documented in this encounter [facility] note* Diagnosis Pre-operative examination- Primary Preoperative examination, unspecified Chronic left-sided low back pain without sciatica Uterovaginal prolapse, incomplete Cystocele, midline Rectocele Osteoporosis, unspecified osteoporosis type, unspecified pathological fracture presence Solitary pulmonary nodule Hx of seizure disorder Personal history of other disorders of nervous system and sense organs Encounter for screening mammogram for breast cancer documented in this encounter [facility] note* Diagnosis Pre-operative examination- Primary Preoperative examination, unspecified Chronic left-sided low back pain without sciatica Uterovaginal prolapse, incomplete Cystocele, midline Rectocele Osteoporosis, unspecified osteoporosis type, unspecified pathological fracture presence Solitary pulmonary nodule Hx of seizure disorder Personal history of other disorders of nervous system and sense organs Elevated blood pressure reading- Primary Elevated blood pressure reading without diagnosis of hypertension Genitourinary syndrome of menopause documented in this encounter [facility] note* Diagnosis Pre-operative examination- Primary Preoperative examination, unspecified Chronic left-sided low back pain without sciatica Uterovaginal prolapse, incomplete Cystocele, midline Rectocele Osteoporosis, unspecified osteoporosis type, unspecified pathological fracture presence Solitary pulmonary nodule Hx of seizure disorder Personal history of other disorders of nervous system and sense organs Post-operative state- Primary Other postprocedural status JEMIMA (stress urinary incontinence, female) Female stress incontinence Vaginal atrophy Postmenopausal atrophic vaginitis Vaginal adhesions, postprocedural Stricture or atresia of vagina documented in this encounter [facility] for referral (narrative)* Diagnostic Procedure Only (Routine) - Pending Review Specialty Diagnoses / Procedures Referred By Fidencio t Referred To Contact BR IMAGING Diagnoses Encounter for screening mammogram for breast cancer Dense breast tissue Procedures TAYLOR SCREENING W AQUILES SCREENING DIGITAL BREAST TOMOSYNTHESIS BI SCREENING MAMMOGRAPHY BI 2-VIEW BREAST INC Tanya [place] APRN.CNP [address] [place] [address] Br Imaging [facility] [place] [address] Referral ID Status Reason Start Date Expiration Date Visits Requested Visits Authorized [id number] Pending Review Auto-Generat ed Referral 02/06/2022 03/08/2023 1 1 [facility] for referral (narrative)* Diagnostic Procedure Only (Routine) - Pending Review Specialty Diagnoses / Procedures Referred By Contac t Referred To Contact BR IMAGING Diagnoses Encounter for screening mammogram for breast cancer Procedures TAYLOR SCREENING W AQUILES SCREENING DIGITAL BREAST TOMOSYNTHESIS BI SCREENING MAMMOGRAPHY BI 2-VIEW BREAST INC Murphy Ruiz MD [address] [place] [address] Br Imaging [address] [place] [address] Referral ID Status Reason Start Date Expiration Date Visits Requested Visits Authorized [id number] Pending Review Auto-Generat ed Referral 04/02/2024 1 1 [facility] for referral (narrative)* Diagnostic Procedure Only (Routine) - Closed Specialty Diagnoses / Procedures Referred By Contac t Referred To Contact BR IMAGING Diagnoses Encounter for screening mammogram for breast cancer Dense breast tissue Procedures TAYLOR SCREENING W AQUILES SCREENING DIGITAL BREAST TOMOSYNTHESIS BI SCREENING MAMMOGRAPHY BI 2-VIEW BREAST INC Tanya [place] APRN.PLY BANDER [address] [place] [address] [facility] [address] [place] [address] Referral ID Status Reason Start Date Expiration Date V isits Requested Visits Authorized [id number] Closed Auto-Generate d Referral 02/06/2022 03/08/2023 1 1 T [facility] for referral (narrative)* Diagnostic Procedure Only (Routine) - Authorized Specialty Diagnoses / Procedures Referred By Contac t Referred To Contact XR IMAGING Diagnoses Encounter for screening for osteoporosis Asymptomatic postmenopausal status Procedures DXA-AXIAL SKELETON Christina Martin APRN.PLY BANDER [address] [place] [address] [place] [address] Referral ID Status Reason Start Date Expiration Date Visits Requested Visits Authorized [id number] Authorized Auto-Generat ed Referral 09/28/2023 10/27/2024 1 1 [facility] for referral (narrative)* Diagnostic Procedure Only (Routine) - Closed Specialty Diagnoses / Procedures Referred By Contac t Referred To Contact XR IMAGING Diagnoses Right foot pain Procedures XR FOOT GENERAL 3V AP/LAT/OBL RIGHT RADEX FOOT COMPLETE MINIMUM 3 VIEWS Christina Martin APRN.PLY BANDER [address] [place] [address] [place] [address] Referral ID Status Reason Start Date Expiration Date V isits Requested Visits Authorized [id number] Closed Auto-Generate d Referral 03/05/2023 04/03/2024 1 1 [facility] for referral (narrative)* Diagnostic Procedure Only (Routine) - Closed Specialty Diagnoses / Procedures Referred By Contac t Referred To Contact XR IMAGING Diagnoses Chronic right-sided low back pain without sciatica Procedures XR LUMBAR GENERAL 3V AP/LAT/L5-S1 RADEX SPINE LUMBOSACRAL 2/3 VIEWS Christina Martin APRN.PLY BANDER [address] [place] [address] [place] [address] Referral ID Status Reason Start Date Expiration Date V isits Requested Visits Authorized [id number] Closed Auto-Generate d Referral 09/01/2022 10/01/2023 1 1 [facility] for referral (narrative)* Diagnostic Procedure Only (Routine) - Closed Specialty Diagnoses / Procedures Referred By Contac t Referred To Contact XR IMAGING Diagnoses Chronic right shoulder pain Procedures XR SHOULDER GENERAL 3V OR MORE AP/TRUE AP/OTHER RIGHT RADEX SHOULDER COMPLETE MINIMUM 2 VIEWS Alondra Pelletier APRN.PLY BANDER [address] [place] [address] [place] [address] Referral ID Status Reason Start Date Expiration Date V isits Requested Visits Authorized [id number] Closed Auto-Generate d Referral 06/18/2021 05/17/2022 1 1 [facility] for referral (narrative)* Diagnostic Procedure Only (Routine) - Closed Specialty Diagnoses / Procedures Referred By Fidencio griffin Referred To Contact XR IMAGING Diagnoses Osteopenia, unspecified location DDD (degenerative disc disease), lumbar Chronic right-sided low back pain without sciatica Procedures XR SACROILIAC JOINTS 2V AP PELVIS/FERGUESON X-RAY SACRO-ILIAC JOINTS MIN 3 VIEW Murphy Cuevas MD [facility] [place] [address] [place] [address] Referral ID Status Reason Start Date Expiration Date V isits Requested Visits Authorized Closed Auto-Generate d Referral 03/18/2021 04/17/2022 1 1 * Diagnostic Procedure Only (Routine) - Closed Specialty Diagnoses / Procedures Referred By Fidencio griffin Referred To Contact XR IMAGING Diagnoses Osteopenia, unspecified location DDD (degenerative disc disease), lumbar Chronic right-sided low back pain without sciatica Procedures XR LUMBAR GENERAL 3V AP/LAT/L5-S1 X-RAY L-S SPINE AP/LATERAL Murphy Cuevas MD [address] [place] [address] [place] [address] Referral ID Status Reason Start Date Expiration Date V isits Requested Visits Authorized Closed Auto-Generate d Referral 03/18/2021 04/17/2022 1 1 [facility] for referral (narrative)* Diagnostic Procedure Only (Routine) - Closed Specialty Diagnoses / Procedures Referred By Fidencio griffin Referred To Contact BR IMAGING Diagnoses Encounter for screening mammogram for breast cancer Procedures TAYLOR SCREENING W AQUILES SCREENING DIGITAL BREAST TOMOSYNTHESIS BI SCREENING MAMMOGRAPHY BI 2-VIEW BREAST INC CAD Murphy Cuevas MD [address] [place] [address] [facility] Imaging [address] [place] [address] Referral ID Status Reason Start Date Expiration Date V isits Requested Visits Authorized [id number] Closed Auto-Generate d Referral 03/04/2023 04/02/2024 1 1 [facility] for referral (narrative)No reason for referral information [facility] N[facility]* Diagnostic Procedure Only (Routine) - Closed Specialty Diagnoses / Procedures Referred By Contac t Referred To Contact BR IMAGING Diagnoses Encounter for screening mammogram for breast cancer Dense breast tissue Procedures TAYLOR SCREENING W AQUILES SCREENING DIGITAL BREAST TOMOSYNTHESIS BI SCREENING MAMMOGRAPHY BI 2-VIEW BREAST INC Tanya [place] FUR FARMER.PLY BANDER [address] [place] [address] [facility] Imaging [address] [place] [address] Referral ID Status Reason Start Date Expiration Date V isits Requested Visits Authorized [id number] Closed Auto-Generate d Referral 02/06/2022 03/08/2023 1 1 [facility] for visit Narrative* Diagnostic Procedure Only (Routine) - Closed Specialty Diagnoses / Procedures Referred By Walterac t Referred To Contact XR IMAGING Diagnoses Encounter for screening for osteoporosis Asymptomatic postmenopausal status Procedures DXA-AXIAL SKELETON Christina Martin, FUR FARMER.PLY BANDER [address] [place] [address] Xr Imaging [facility] Referral ID Status Reason Start Date Expiration Date V isits Requested Visits Authorized [id number] Closed Auto-Generate d Referral 09/28/2023 10/27/2024 1 1 [facility] for visit Narrative* Diagnostic Procedure Only (Routine) - Closed Specialty Diagnoses / Procedures Referred By Walterac t Referred To Contact XR IMAGING Diagnoses Toe pain, right Procedures XR TOE AP/LAT/OBL RIGHT RADEX TOE MINIMUM 2 VIEWS Christina Martin, FUR FARMER.PLY BANDER [address] [place] [address] [place] [address] Referral ID Status Reason Start Date Expiration Date V isits Requested Visits Authorized [id number] Closed Auto-Generate d Referral 03/05/2023 04/03/2024 1 1 [facility] [facility] N[facility]ative[facility] Diagnostic Procedure Only (Routine) - Closed Specialty Diagnoses / Procedures Referred By Contac t Referred To Contact XR IMAGING Diagnoses Chronic right-sided low back pain without sciatica Procedures XR LUMBAR GENERAL 3V AP/LAT/L5-S1 RADEX SPINE LUMBOSACRAL 2/3 VIEWS Christina Martin APRN.PLY BANDER [address] [phone] [place] [address] Referral ID Status Reason Start Date Expiration Date V isits Requested Visits Authorized [id number] Closed Auto-Generate d Referral 09/01/2022 10/01/2023 1 1 [facility] for visit Narrative* Diagnostic Procedure Only (Routine) - Closed Specialty Diagnoses / Procedures Referred By Contac t Referred To Contact XR IMAGING Diagnoses Chronic right shoulder pain Procedures XR SHOULDER GENERAL 3V OR MORE AP/TRUE AP/OTHER RIGHT RADEX SHOULDER COMPLETE MINIMUM 2 VIEWS Alondra Pelletier, FUR FARMER.PLY BANDER [address] [id number] [place] [address] Referral ID Status Reason Start Date Expiration Date V isits Requested Visits Authorized [id number] Closed Auto-Generate d Referral 06/18/2021 05/17/2022 1 1 [facility] for visit Narrative* Diagnostic Procedure Only (Routine) - Closed Specialty Diagnoses / Procedures Referred By Contac t Referred To Contact XR IMAGING Diagnoses Osteopenia, unspecified location DDD (degenerative disc disease), lumbar Chronic right-sided low back pain without sciatica Procedures XR SACROILIAC JOINTS 2V AP PELVIS/FERGUESON X-RAY SACRO-ILIAC JOINTS MIN 3 VIEW Murphy Cuevas MD [address] [place] [address] [place] [address] Referral ID Status Reason Start Date Expiration Date V isits Requested Visits Authorized [id number] Closed Auto-Generate d Referral 03/18/2021 04/17/2022 1 1 [facility] for visit Narrative* Diagnostic Procedure Only (Routine) - Closed Specialty Diagnoses / Procedures Referred By Contac t Referred To Contact BR IMAGING Diagnoses Encounter for screening mammogram for breast cancer Procedures TAYLOR SCREENING W AQUILES SCREENING DIGITAL BREAST TOMOSYNTHESIS BI SCREENING MAMMOGRAPHY BI 2-VIEW BREAST INC CAD Murphy Cuevas MD [address] [place] [address] [facility] [address] [place] [address] Referral ID Status Reason Start Date Expiration Date V isits Requested Visits Authorized [id number] Closed Auto-Generate d Referral 03/04/2023 04/02/2024 1 1 [facility] Advance Directives No Advanced Directives Records FoundDocuments on File Type Date Recorded 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 Advance Directive(s) 07/02/2018 5:48 AM Advance Directive(s) 06/03/2018 8:47 AM Advance Directive Response Recorded Date/ Time Living Will No April 20 9:10am Power of Aquacultural Worker Supervisor No April 20, 2022 9:10am Advance Directive Response Recorded Date/ Time Living Will No April 24 9:04am Power of Aquacultural Worker Supervisor No April 24, 2022 9:04am Advance Directive Response Recorded Date/ Time Living Will No July 29, 2023 9:51am Power of Aquacultural Worker Supervisor No July 28 9:51am Advance Directive Response Recorded Date/ Time Do you have a Healthcare Power of Aquacultural Worker Supervisor? Yes November 03, 2024 1:18pm Reason for Referral Specialty Diagnoses / Procedures Referred By Fidencio t Referred To Contact BR IMAGING Diagnoses Encounter for screening mammogram for breast cancer Dense breast tissue on mammogram Procedures TAYLOR SCREENING W AQUILES SCREENING BREAST DGTL AQUILES UNI/BILAT ADD ON SCREENING MAMMOGRAPHY BI 2-VIEW BREAST INC CAD Tanya Dobson, FUR FARMER.PLY BANDER [address] [place] [address] [facility] [address] [place] [address] Referral ID Status Reason Start Date Expiration Date Visits Re quested Visits Authorized [id number] Closed 12/20/2020 01/19/2022 1 1 Specialty Diagnoses / Procedures Referred By Fidencio t Referred To Contact Urology Diagnoses Bladder pain Procedures CONSULT TO UROLOGY OFFICE/OUTPATIENT NEW HIGH MDM 60-74 MINUTES Older, Christina, FUR FARMER.PLY BANDER [address] [place] [address] Referral ID Status Reason Start Date Expiration Date Visits Requested Visits Authorized [id number] Authorized PCP Requested Referral 03/04/2024 1 1 Specialty Diagnoses / Procedures Referred By Contac t Referred To Contact XR IMAGING Diagnoses Toe pain, right Procedures XR TOE AP/LAT/OBL RIGHT RADEX TOE MINIMUM 2 VIEWS Christina Martin, MEL.PLY BANDER [address] [place] [address] [place] [address] Referral ID Status Reason Start Date Expiration Date V isits Requested Visits Authorized [id number] Closed Auto-Generate d Referral 03/05/2023 04/03/2024 1 1 Specialty Diagnoses / Procedures Referred By Contac t Referred To Contact XR IMAGING Diagnoses Right foot pain Procedures XR FOOT GENERAL 3V AP/LAT/OBL RIGHT RADEX FOOT COMPLETE MINIMUM 3 VIEWS Christina Martin, FUR FARMER.PLY BANDER [address] [place] [address] [place] [address] Referral ID Status Reason Start Date Expiration Date V isits Requested Visits Authorized [id number] Closed Auto-Generate d Referral 03/05/2023 04/03/2024 1 1 Specialty Diagnoses / Procedures Referred By Contac t Referred To Contact Diagnoses Cystocele, midline Uterine prolapse Procedures CONSULT TO URO GYNECOLOGY OFFICE/OUTPATIENT [facility] 60-74 MINUTES Marcelina Madrigal MD [address] [place] [address] Referral ID Status Reason Start Date Expiration Date Visits Requested Visits Authorized [id number] Authorized PCP Requested Referral Auto-Generate d Referral 04/15/2024 1 1 Specialty Diagnoses / Procedures Referred By Contac t Referred To Contact Diagnoses Uterovaginal prolapse, incomplete Cystocele, midline Rectocele Procedures REFER TO PACC - PRE ANESTHESIA CONSULTATION CLINIC OFFICE/OUTPATIENT [facility] MDM 60 MINUTES Michael Manzanaers MD [address] [facility] [address] [place] [address] Referral ID Status Reason Start Date Expiration Date Visits Requested Visits Authorized [id number] Authorized PCP Requested Referral 08/04/2023 07/28/2024 1 1 Chief Complaint and Reason for Visit Chief Complaint RIGHT KNEE xray RIGHT KNEE RIGHT KNEE PAIN Reason for Visit Osteoarthritis of ri ght knee Right knee pain Osteoarthritis of right knee Right knee pain Tear of medial meniscus of right knee Chief Complaint RIGHT KNEE RIGHT KNEE PAIN right knee FALL Reason for Visit Osteoarthritis of ri ght knee Right knee pain Tear of medial meniscus of right knee Osteoarthritis of right knee Right knee pain Synovial cyst of popliteal space [Ho], right knee Tear of medial meniscus of right knee Chief Complaint RIGHT KNEE RIGHT KNEE PAIN right knee FALL RT KNEE ARTHROSCOPY PARTIAL MEDIAL MENISCECTOMY RT KNEE ARTHROSCOPY PARTIAL MEDIAL MENISCECTOMY Reason for Visit Osteoarthritis of ri ght knee Right knee pain Tear of medial meniscus of right knee Osteoarthritis of right knee Right knee pain Synovial cyst of popliteal space [Ho], right knee Tear of medial meniscus of right knee Osteoarthritis of right knee Right knee pain Tear of medial meniscus of right knee Chief Complaint RIGHT KNEE RIGHT KNEE PAIN right knee FALL RT KNEE ARTHROSCOPY PARTIAL MEDIAL MENISCECTOMY RT KNEE ARTHROSCOPY PARTIAL MEDIAL MENISCECTOMY RIGHT KNEE right knee RIGHT KNEE R KNEE TEAR MENISCUS RX HERE Reason for Visit Osteoarthritis of ri ght knee Right knee pain Tear of medial meniscus of right knee Osteoarthritis of right knee Right knee pain Synovial cyst of popliteal space [Ho], right knee Tear of medial meniscus of right knee Osteoarthritis of right knee Right knee pain Tear of medial meniscus of right knee Tear of medial meniscus of right knee Tear of medial meniscus of right knee Synovial cyst of popliteal space [Ho], right knee Tear of medial meniscus of right knee Chief Complaint Chronic bladder pain , Unspecified abdominal pain Chief Complaint Chronic bladder pain , Unspecified abdominal pain Other chronic sinusitis Chief Complaint Other chronic sinusi tis right knee RIGHT KNEE CYST RIGHT KNEE Reason for Visit Osteoarthritis of ri ght knee Synovial cyst of popliteal space [Ho], right knee Tear of medial meniscus of right knee Osteoarthritis of right knee Synovial cyst of popliteal space [Ho], right knee Tear of medial meniscus of right knee Chief Complaint Other chronic sinusi tis right knee RIGHT KNEE CYST RIGHT KNEE Synovial cyst of popliteal space [Ho], right kn Reason for Visit Osteoarthritis of ri ght knee Synovial cyst of popliteal space [Ho], right knee Tear of medial meniscus of right knee Osteoarthritis of right knee Synovial cyst of popliteal space [Ho], right knee Tear of medial meniscus of right knee Chief Complaint Admit Date Follow up July 04, 2024 12:52pm 2 M FU September 13, 2024 8:2 1am LOWER ABD PAIN October 14, 2024 6:50a m Reason for Visit Admit Date Abdominal pain July 04, 2024 12:52pm Constipation July 04, 2024 12:52pm Abdominal pain September 13, 2024 8:2 1am Constipation September 13, 2024 8:2 1am Chief Complaint Admit Date Follow up July 04, 2024 12:52pm 2 M FU September 13, 2024 8:2 1am LOWER ABD PAIN October 14, 2024 6:50a m CT scan results October 24, 2024 8:27a m Chief Complaint Admit Date 2 M FU September 13, 2024 8:2 1am LOWER ABD PAIN October 14, 2024 6:50a m CT scan results October 24, 2024 8:27a m Reason for Visit Admit Date Abdominal pain September 13, 2024 8:2 1am Constipation September 13, 2024 8:2 1am Abdominal pain October 24, 2024 8:27a m Abnormal CT scan, bladder October 24, 2024 8:27am Constipation October 24, 2024 8:27a m Abdominal pain November 08, 2024 1:05 pm Family History No Family History Records Found Relationship Condition Age at Onset Recorded Date/T didier mother Hypertension Unknown Cerebrovascular accident (CVA) Unknown Health Concerns Infection Onset Date Last Indicated Resolved Time COVID-19 Rule-Out 04/28/2022 04/28/2022 Summary Purpose Additional Source Comments Source Comments (unrecognize d section and content) In the event this informatio n is protected by the Federal Confidentiality of Alcohol and Drug Abuse Patient Records regulations: The Federal rules restrict any use of the information to criminally investigate or prosecute any alcohol or drug abuse patient.[facility] the event this information is protected by the Federal Confidentiality of Alcohol and Drug Abuse Patient Records regulations: The Federal rules restrict any use of the information to criminally investigate or prosecute any alcohol or drug abuse patient.[facility] the event this information is protected by the Federal Confidentiality of Alcohol and Drug Abuse Patient Records regulations: The Federal rules restrict any use of the information to criminally investigate or prosecute any alcohol or drug abuse patient.[facility] the event this information is protected by the Federal Confidentiality of Alcohol and Drug Abuse Patient Records regulations: The Federal rules restrict any use of the information to criminally investigate or prosecute any alcohol or drug abuse patient.[facility] the event this information is protected by the Federal Confidentiality of Alcohol and Drug Abuse Patient Records regulations: The Federal rules restrict any use of the information to criminally investigate or prosecute any alcohol or drug abuse patient.[facility] the event this information is protected by the Federal Confidentiality of Alcohol and Drug Abuse Patient Records regulations: The Federal rules restrict any use of the information to criminally investigate or prosecute any alcohol or drug abuse patient.[facility] the event this information is protected by the Federal Confidentiality of Alcohol and Drug Abuse Patient Records regulations: The Federal rules restrict any use of the information to criminally investigate or prosecute any alcohol or drug abuse patient.[facility] the event this information is protected by the Federal Confidentiality of Alcohol and Drug Abuse Patient Records regulations: The Federal rules restrict any use of the information to criminally investigate or prosecute any alcohol or drug abuse patient.[facility] the event this information is protected by the Federal Confidentiality of Alcohol and Drug Abuse Patient Records regulations: The Federal rules restrict any use of the information to criminally investigate or prosecute any alcohol or drug abuse patient.[facility] the event this information is protected by the Federal Confidentiality of Alcohol and Drug Abuse Patient Records regulations: The Federal rules restrict any use of the information to criminally investigate or prosecute any alcohol or drug abuse patient.[facility]In the event this information is protected by the Federal Confidentiality of Alcohol and Drug Abuse Patient Records regulations: The Federal rules restrict any use of the information to criminally investigate or prosecute any alcohol or drug abuse patient.[facility] the event this information is protected by the Federal Confidentiality of Alcohol and Drug Abuse Patient Records regulations: The Federal rules restrict any use of the information to criminally investigate or prosecute any alcohol or drug abuse patient.[facility] the event this information is protected by the Federal Confidentiality of Alcohol and Drug Abuse Patient Records regulations: The Federal rules restrict any use of the information to criminally investigate or prosecute any alcohol or drug abuse patient.[facility] the event this information is protected by the Federal Confidentiality of Alcohol and Drug Abuse Patient Records regulations: The Federal rules restrict any use of the information to criminally investigate or prosecute any alcohol or drug abuse patient.[facility] the event this information is protected by the Federal Confidentiality of Alcohol and Drug Abuse Patient Records regulations: The Federal rules restrict any use of the information to criminally investigate or prosecute any alcohol or drug abuse patient.[facility]In the event this information is protected by the Federal Confidentiality of Alcohol and Drug Abuse Patient Records regulations: The Federal rules restrict any use of the information to criminally investigate or prosecute any alcohol or drug abuse patient.[facility]In the event this information is protected by the Federal Confidentiality of Alcohol and Drug Abuse Patient Records regulations: The Federal rules restrict any use of the information to criminally investigate or prosecute any alcohol or drug abuse patient.[facility]In the event this information is protected by the Federal Confidentiality of Alcohol and Drug Abuse Patient Records regulations: The Federal rules restrict any use of the information to criminally investigate or prosecute any alcohol or drug abuse patient.[facility]In the event this information is protected by the Federal Confidentiality of Alcohol and Drug Abuse Patient Records regulations: The Federal rules restrict any use of the information to criminally investigate or prosecute any alcohol or drug abuse patient.[facility]In the event this information is protected by the Federal Confidentiality of Alcohol and Drug Abuse Patient Records regulations: The Federal rules restrict any use of the information to criminally investigate or prosecute any alcohol or drug abuse patient.[facility]In the event this information is protected by the Federal Confidentiality of Alcohol and Drug Abuse Patient Records regulations: The Federal rules restrict any use of the information to criminally investigate or prosecute any alcohol or drug abuse patient.[facility]In the event this information is protected by the Federal Confidentiality of Alcohol and Drug Abuse Patient Records regulations: The Federal rules restrict any use of the information to criminally investigate or prosecute any alcohol or drug abuse patient.[facility]In the event this information is protected by the Federal Confidentiality of Alcohol and Drug Abuse Patient Records regulations: The Federal rules restrict any use of the information to criminally investigate or prosecute any alcohol or drug abuse patient.[facility]In the event this information is protected by the Federal Confidentiality of Alcohol and Drug Abuse Patient Records regulations: The Federal rules restrict any use of the information to criminally investigate or prosecute any alcohol or drug abuse patient.[facility]In the event this information is protected by the Federal Confidentiality of Alcohol and Drug Abuse Patient Records regulations: The Federal rules restrict any use of the information to criminally investigate or prosecute any alcohol or drug abuse patient.[facility]In the event this information is protected by the Federal Confidentiality of Alcohol and Drug Abuse Patient Records regulations: The Federal rules restrict any use of the information to criminally investigate or prosecute any alcohol or drug abuse patient.[facility]In the event this information is protected by the Federal Confidentiality of Alcohol and Drug Abuse Patient Records regulations: The Federal rules restrict any use of the information to criminally investigate or prosecute any alcohol or drug abuse patient.[facility] HospitalIn the event this information is protected by the Federal Confidentiality of Alcohol and Drug Abuse Patient Records regulations: The Federal rules restrict any use of the information to criminally investigate or prosecute any alcohol or drug abuse patient.[facility] HospitalIn the event this information is protected by the Federal Confidentiality of Alcohol and Drug Abuse Patient Records regulations: The Federal rules restrict any use of the information to criminally investigate or prosecute any alcohol or drug abuse patient.[facility] HospitalIn the event this information is protected by the Federal Confidentiality of Alcohol and Drug Abuse Patient Records regulations: The Federal rules restrict any use of the information to criminally investigate or prosecute any alcohol or drug abuse patient.[facility] HospitalIn the event this information is protected by the Federal Confidentiality of Alcohol and Drug Abuse Patient Records regulations: The Federal rules restrict any use of the information to criminally investigate or prosecute any alcohol or drug abuse patient.[facility] HospitalIn the event this information is protected by the Federal Confidentiality of Alcohol and Drug Abuse Patient Records regulations: The Federal rules restrict any use of the information to criminally investigate or prosecute any alcohol or drug abuse patient.[facility] HospitalIn the event this information is protected by the Federal Confidentiality of Alcohol and Drug Abuse Patient Records regulations: The Federal rules restrict any use of the information to criminally investigate or prosecute any alcohol or drug abuse patient.[facility]In the event this information is protected by the Federal Confidentiality of Alcohol and Drug Abuse Patient Records regulations: The Federal rules restrict any use of the information to criminally investigate or prosecute any alcohol or drug abuse patient.[facility] HospitalIn the event this information is protected by the Federal Confidentiality of Alcohol and Drug Abuse Patient Records regulations: The Federal rules restrict any use of the information to criminally investigate or prosecute any alcohol or drug abuse patient.[facility] HospitalIn the event this information is protected by the Federal Confidentiality of Alcohol and Drug Abuse Patient Records regulations: The Federal rules restrict any use of the information to criminally investigate or prosecute any alcohol or drug abuse patient.[facility] Reason for Visit (unrecogniz ed section and content) Reason Onset Date Comments Refill Request 08/30/2021 Specialty Diagnoses / Procedures Referred By Fidencio griffin Referred To Contact Radiology / RADIO [facility] Diagnoses Encounter for screening mammogram for breast cancer Dense breast tissue on mammogram . Procedures SCREENING MAMMOGRAPHY BI 2-VIEW BREAST INC CAD SCREENING DIGITAL BREAST TOMOSYNTHESIS BI MAMMOGRAM TOMOGRAM SCREEN Tanya Dobson APRN.PLY BANDER [address] [place] [address] Radio Mammo [facility] [address] [place] [address] Referral ID Status Reason Start Date Expiration Date Visits Re quested Visits Authorized [id number] Closed 01/16/2022 1 0 Reason Comments Well Woman Reason Comments Sinus Problem sinus pressure, drai nage, headache, chills and bodyaches x 6 days Reason Comments Sore Throat X3 days, intermitten t cough Reason Onset Date Comments Recheck 6 month follow u p Immunizations 03/05/2023 Flu vaccination Reason Comments Results Reason Comments Prolapse Reason Comments Schedule Surgery Reason Comments Returning Patient's Call Reason Comments F/U 6 months Reason Comments Pre-Op Teaching Reason Comments Consult Specialty Diagnoses / Procedures Referred By Fidencio griffin Referred To Contact Diagnoses Uterovaginal prolapse, incomplete Cystocele, midline Rectocele Procedures REFER TO PACC - PRE ANESTHESIA CONSULTATION CLINIC OFFICE/OUTPATIENT [facility] 60 MINUTES Michael Manzanares MD [address] [facility] [address] [place] [address] Referral ID Status Reason Start Date Expiration Date V isits Requested Visits Authorized [id number] Closed PCP Requested Referral 08/04/2023 07/28/2024 1 1 Reason Comments Voiding Trial Reason Onset Date Comments Refill Request 01/28/2024 Reason Comments Post Op Reason Comments Care Coordination Bulkamid Specialty Diagnoses / Procedures Referred By Fidencio t Referred To Contact Radiology / RADIO [facility] Diagnoses Abnormal x-ray [R93.89] Procedures XR CHEST Alondra Pelletier, MEL.PLY BANDER [address] [place] [address] Radio General [facility] [address] [place] [address] Referral ID Status Reason Start Date Expiration Date V isits Requested Visits Authorized [id number] Closed OON/Self Pay Override 06/19/2021 05/17/2022 1 1 Reason Comments Procedure Cystoscopy with Bulk amid Reason Comments Care Coordination Bulkamid Follow-Up Reason Comments Recheck 6 month follow up Reason Comments Follow Up Care Teams (unrecognized sec tion and content) Yarn Man Relationship Specialty Start Date End Date Murphy Cuevas MD [address] [place], [place] [id number] PCP - General Internal Medicine 10/05/20 Yarn Man Relationship Specialty Start Date End Date Murphy Cuevas MD [address] [place] [address] PCP - General Internal Medicine 10/05/20 Yarn Man Relationship Specialty Start Date End Date Murphy Cuevas MD [address] [place] [address] PCP - General Internal Medicine 10/05/20 Yarn Man Relationship Specialty Start Date End Date Murphy Cuevas MD [address] [place] [address] PCP - General Internal Medicine 10/05/20 Team Status: Active Member Role Status Dates Alondra Pelletier LITIGATION SUPPORT ANALYST, LITIGATION SUPPORT ANALYST-C Primary Care Provider Active Team Status: Inactive Member Role Status Dates No Primary Care Physician Primary Care Provider, Refer ring Provider Active Benjamín Green MD Attending Provider Active Team Status: Inactive Member Role Status Dates No Primary Care Physician Referring Provider Active Benjamín Green MD Attending Provider Active Alondra Pelletier LITIGATION SUPPORT ANALYST, LITIGATION SUPPORT ANALYST-C Primary Care Provider Active Team Status: Active Member Role Status Dates Benjamín Green MD Attending Provider, Referring Provider, Other Provider Active Alondra Pelletier LITIGATION SUPPORT ANALYST, LITIGATION SUPPORT ANALYST-C Primary Care Provider Active Team Status: Inactive Member Role Status Dates Alondra Pelletier LITIGATION SUPPORT ANALYST, LITIGATION SUPPORT ANALYST-C Primary Care Provider, Referri ng Provider Active Benjamín Green MD Attending Provider Active Team Status: Inactive Member Role Status Dates No Primary Care Physician Primary Care Provider Active Benjamín Green MD Attending Provider Active Team Status: Inactive Member Role Status Dates Benjamín Green MD Attending Provider, Referring Prov ider Active Alondra Pelletier LITIGATION SUPPORT ANALYST, LITIGATION SUPPORT ANALYST-C Primary Care Provider Active Team Status: Inactive Member Role Status Dates Dr. Teodoro Chris DO Attending Provider, Emergency P armando Active Alondra Pelletier LITIGATION SUPPORT ANALYST, LITIGATION SUPPORT ANALYST-C Primary Care Provider Active Team Status: Inactive Member Role Status Dates Alondra Pelletier LITIGATION SUPPORT ANALYST, LITIGATION SUPPORT ANALYST-C Primary Care Provider Active Benjamín Green MD Attending Provider, Referring Prov ider Active Yarn Man Relationship Specialty Start Date End Date Murphy Cuevas MD [address] [place], [place] [id number] PCP - General Internal Medicine 10/05/20 Yarn Man Relationship Specialty Start Date End Date Murphy Cuevas MD [address] [place], [place] [id number] PCP - General Internal Medicine 10/05/20 Yarn Man Relationship Specialty Start Date End Date Murphy Cuevas MD [address] [place], [place] [id number] PCP - General Internal Medicine 10/05/20 Yarn Man Relationship Specialty Start Date End Date Murphy Cuevas MD [address] [place], [place] [id number] PCP - General Internal Medicine 10/05/20 Yarn Man Relationship Specialty Start Date End Date Murphy Cuevas MD [address] [place] [address] PCP - General Internal Medicine 10/05/20 Yarn Man Relationship Specialty Start Date End Date Murphy Cuevas MD [address] [place] [address] PCP - General Internal Medicine 10/05/20 Team Status: Active Member Role Status Dates CHRISTINA MARTIN , LITIGATION SUPPORT ANALYST-C Primary Care Provider Active Team Status: Inactive Member Role Status Dates Dr. Abdirahman Mensah MD Attending Provider, Referr ing Provider Active CHRISTINA MARTIN , LITIGATION SUPPORT ANALYST-C Primary Care Provider Active Yarn Man Relationship Specialty Start Date End Date Murphy Cuevas MD [address] [place] [address] PCP - General Internal Medicine 10/05/20 Yarn Man Relationship Specialty Start Date End Date Murphy Cuevas MD [address] [place], [place] [id number] PCP - General Internal Medicine 10/05/20 Team Status: Inactive Member Role Status Dates CHRISTINA MARTIN LITIGATION SUPPORT ANALYST-C Primary Care Provider Active Dr. Marcos Puente MD Attending Provider, Referring P armando Active Yarn Man Relationship Specialty Start Date End Date Murphy Cuevas MD [address] [place] [address] PCP - General Internal Medicine 10/05/20 Team Status: Inactive Member Role Status Dates CHRISTINA MARTIN LITIGATION SUPPORT ANALYST-C Primary Care Provider, Referring Prov ider Active Benjamín Green MD Attending Provider Active Team Status: Inactive Member Role Status Dates CHRISTINA MARTIN , LITIGATION SUPPORT ANALYST-C Primary Care Provider Active Benjamín Green MD Attending Provider, Referring Prov ider Active Yarn Man Relationship Specialty Start Date End Date Murphy Cuevas MD [address] [place] [address] PCP - General Internal Medicine 10/05/20 Yarn Man Relationship Specialty Start Date End Date Murphy Cuevas MD [address] [facility] [place] [address] PCP - General Internal Medicine 10/05/20 Yarn Man Relationship Specialty Start Date End Date Murphy Cuevas MD [address] [facility] [place] [address] PCP - General Internal Medicine 10/05/20 Yarn Man Relationship Specialty Start Date End Date Murphy Cuevas MD [address] [facility] [place] [address] PCP - General Internal Medicine 10/05/20 Yarn Man Relationship Specialty Start Date End Date Murphy Cuevas MD [address] [facility] [place] [address] PCP - General Internal Medicine 10/05/20 Yarn Man Relationship Specialty Start Date End Date Murphy Cuevas MD [address] [facility] [place] [address] PCP - General Internal Medicine 10/05/20 Yarn Man Relationship Specialty Start Date End Date Murphy Cuevas MD [address] [facility] [place] [address] PCP - General Internal Medicine 10/05/20 Yarn Man Relationship Specialty Start Date End Date Murphy Cuevas MD [address] [facility] [place] [address] PCP - General Internal Medicine 10/05/20 Yarn Man Relationship Specialty Start Date End Date Murphy Cuevas MD [address] [facility] [place] [address] PCP - General Internal Medicine 10/05/20 Yarn Man Relationship Specialty Start Date End Date Murphy Cuevas MD [address] [place] [address] PCP - General Internal Medicine 10/05/20 Yarn Man Relationship Specialty Start Date End Date Murphy Cuevas MD [address] [place], [place] [address] PCP - General Internal Medicine 10/05/20 Yarn Man Relationship Specialty Start Date End Date Murphy Cuevas MD [address] [place] [address] PCP - General Internal Medicine 10/05/20 Yarn Man Relationship Specialty Start Date End Date Murphy Cuevas MD [address] [place] [address] PCP - General Internal Medicine 10/05/20 Yarn Man Relationship Specialty Start Date End Date Murphy Cuevas MD [address] [place], [place] [address] PCP - General Internal Medicine 10/05/20 Team Status: Inactive Member Role Status Dates CHRISTINA MARTIN NP-C Primary Care Provider Active St art: July 04, 2024 End: July 04, 2024 CHRISTINA MARTIN NP-C Referring Provider Active Start : July 04, 2024 End: July 04, 2024 NANO Munson Attending Provider Active Start: July 04, 2024 End: July 04, 2024 Team Status: Inactive Member Role Status Dates CHRISTINA MARTIN NP-Patria Primary Care Provider Active St art: September 13, 2024 End: September 13, 2024 CHRISTINA MARTIN NP-C Referring Provider Active Start : September 13, 2024 End: September 13, 2024 NANO Munson Attending Provider Active Start: September 13, 2024 End: September 13, 2024 Team Status: Inactive Member Role Status Dates CHRISTINA MARTIN LITIGATION SUPPORT ANALYST-C Primary Care Provider Active St art: October 14, 2024 End: October 14, 2024 NANO Munson Attending Provider Active Start: October 14, 2024 End: October 14, 2024 Melba Pinon NP-C Referring Provider Active Start: October 14, 2024 End: October 14, 2024 Team Status: Inactive Member Role Status Dates CHRISTINA MARTIN LITIGATION SUPPORT ANALYST-C Primary Care Provider Active St art: October 24, 2024 End: October 24, 2024 CHRISTINA MARTIN LITIGATION SUPPORT ANALYST-C Referring Provider Active Start : October 24, 2024 End: October 24, 2024 NANO Munson Attending Provider Active Start: October 24, 2024 End: October 24, 2024 Yarn Man Relationship Specialty Start Date End Date Murphy Cuevas MD [address] [place] [address] PCP - General Internal Medicine 10/05/20 Christina Martin APRN.PLY BANDER [address] [place] [address] Band Builder Internal Medicine 04/24/24 Team Status: Inactive Member Role Status Dates CHRISTINA MARTIN LITIGATION SUPPORT ANALYST-C Primary Care Provider Active St art: November 08, 2024 End: November 08, 2024 CHRISTINA MARTIN LITIGATION SUPPORT ANALYST-C Referring Provider Active Start : November 08, 2024 End: November 08, 2024 Dr. Dhiraj King DO Attending Provider Active Start: November 08, 2024 End: November 08, 2024 Team Status: Active Member Role Status Dates CHRISTINA MARTIN LITIGATION SUPPORT ANALYST-C Primary Care Provider Active St art: November 08, 2024 CHRISTINA MARTIN LITIGATION SUPPORT ANALYST-C Referring Provider Active Start : November 08, 2024 Dr. Dhiraj King DO Attending Provider Active Start: November 08, 2024 Dr. Dhiraj King DO Other Provider Active St art: November 08, 2024 Goals (unrecognized section and content) Goals may be documented in a n alternate sectionGoals may be documented in an alternate sectionGoals may be documented in an alternate sectionGoals may be documented in an alternate sectionGoals may be documented in an alternate sectionGoals may be documented in an alternate sectionGoals may be documented in an alternate sectionGoals may be documented in an alternate sectionGoals may be documented in an alternate section INFORMATION SOURCE (unrecogn ized section and content) DATE CREATED AUTHOR 10/30/2023 [facility] DATE CREATED AUTHOR AUTHOR'S ORGANIZ ATION 11/09/2024 [facility] DATE CREATED AUTHOR AUTHOR'S ORGANIZ ATION 11/26/2024 [facility] FOR RECORDS PERTAINING TO PATIENTS WHO ARE OR HAVE BEEN ENROLLED IN A CHEMICAL DEPENDENCY/SUBSTANCEABUSE PROGRAM, SOME INFORMATION MAY BE OMITTED. This clinical summary was aggregated from multiple sources. Caution should be exercised in using it in the provision of clinical care. This summary normalizes information from multiple sources, and as a consequence, information in this document may materially change the coding, format and clinical context of patient data. In addition, data may be omitted in some cases. CLINICAL DECISIONS SHOULD BE BASED ON THE PRIMARY CLINICAL RECORDS. [employer] [facility] provides no warranty or guarantee of the accuracy or completeness of information in this document.
[2024-12-03 10:47] LABS: Vitamin B12 608 pg/mL (180-914)
[2024-12-06 15:08] LABS: Anti-Parietal Cell AB, QN 69.1 Units (0.0-20.0); Gastrin, Serum 923 pg/mL (0-115)
== END | disposition home or self-care (01) ==
LOC: LAB 08:34
PROVIDERS: PCP Nurse Practitioner; Referring Provider Nurse Practitioner Acute Care; Visit Provider Nurse Practitioner Acute Care
DX: K29.40 Chronic atrophic gastritis without bleeding (principal)
CPT/HCPCS: 36415; 82607; 82941; 83516; 86340

== ENCOUNTER → 2024-12-16 | Outpatient (CLI) | payer MEDICARE, OTHER, SELFPAY ==
[2024-12-16 09:08] LABS: Hematocrit 45.0 % (37-47); Hemoglobin 14.7 g/dL (12.0-15.0); Immature Granulocytes Count 0.010 X10^3/uL (0.0-0.0); Mean Corp Hgb Conc 32.7 g/dL (32-36); Mean Corpuscular Volume 93.6 fL (81-99); Mean Platelet Vol. 9.8 fl (6.2-12.0); NRBC Flagged by Analyzer 0 % (0-5); Platelet Count 307 K/mm3 (150-450); RBC Distribution Width CV 13.2 % (11.6-14.6); RBC Distribution Width SD 45.9 fl (35.1-43.9); Red Blood Count 4.81 M/mm3 (4.2-5.4); White Blood Count 5.4 K/mm3 (4.4-11.0)
[2024-12-16 10:06] LABS: Iron 74 ug/dL (50-170); Iron Binding Capacity,Total 295 ug/dL (250-450); Iron Binding Capacity,Unsat 221 ug/dL (228-428); Vitamin B12 721 pg/mL (180-914)
[2024-12-19 17:08] LABS: Gastrin, Serum 432 pg/mL (0-115)
== END | disposition home or self-care (01) ==
LOC: LAB 08:19
PROVIDERS: PCP Nurse Practitioner; Referring Provider Nurse Practitioner Acute Care; Visit Provider Nurse Practitioner Acute Care
DX: K22.70 Barrett's esophagus without dysplasia (principal); K29.40 Chronic atrophic gastritis without bleeding; R10.33 Periumbilical pain; E53.8 Deficiency of other specified B group vitamins
CPT/HCPCS: 36415; 82607; 82941; 83540; 83550; 85025

== ENCOUNTER → 2025-01-25 | Outpatient (CLI) | payer MEDICARE, OTHER, SELFPAY ==
--- NOTE | 2025-01-25 09:00 | MRI_ITS ---
EXAM: ENTEROGRAPHY ABD/PEL 01/25/2025 CLINICAL HISTORY: K59.00 - CONSTIPATION, UNSPECIFIED. TECHNIQUE: Procedure Code: MRIMRIENTER Modality: MR Procedure: ENTEROGRAPHY ABD/PEL Multiplanar and multisequence images were obtained without intravenous gadolinium contrast. Clariscan VOLUME: 20 mL COMPARISON: 10-14-2024 CT report FINDINGS: The stomach shows average measures and wall thickness. The small bowel: The duodenum: shows normal caliber and wall thickness. The Jejunum shows standard caliber and wall thickness. The large bowel: The cecum and ascending colon, the descending and sigmoid colon show fecal loading with uniform wall thickness. No significant wall edema. The appendix is noted identified. The liver shows homogenous signa with no masses Jasmyn hepatis appears intact. Common bile duct, hepatic ducts, and intrahepatic biliary radicles are not dilated. Patent portal vein and its branches. Distended gall bladder with no dense calculi. Clear surrounding fat planes. Normal appearance of different anatomical parts of the pancreas. Both adrenals appear normal in size, shape, and configuration. Unremarkable spleen. Both kidneys appear normal in size, shape, and axis. No renal calculi. No masses, cyst or hydronephrosis was seen. Patent aorta, IVC & pelvic vasculatures. No pelvic masses related to the reproductive system. Unremarkable urinary bladder. No evidence of significant enlargement of the mesenteric or retroperitoneal lymph nodes. No ascites or pelvic collections. No free intra-peritoneal air. MRI/Enterography Abd/Pel IMPRESSION: No obvious small bowel or colon inflammatory changes or obvious masses. Colonic fecal loading. Reading [facility]
[2025-01-25 10:15] VITALS: BP 165/82; PULSE 74; RESP 18; O2SAT 98
[2025-01-25] MEDS: Glucagon 1 MG/ML Syringe IV (11:08)
[2025-01-25 11:27] VITALS: BP 150/82; PULSE 72; RESP 18; O2SAT 99
== END | disposition home or self-care (01) ==
PROVIDERS: PCP Nurse Practitioner; Referring Provider Nurse Practitioner Acute Care; Visit Provider Nurse Practitioner Acute Care
DX: K59.00 Constipation, unspecified (principal); R10.31 Right lower quadrant pain; R10.33 Periumbilical pain
CPT/HCPCS: 74183; 96374; A9575; A4216; J1610

== ENCOUNTER → 2025-02-06 | Outpatient (CLI) | payer MEDICARE, OTHER, SELFPAY ==
--- NOTE | 2025-02-06 08:18 | RAD_ITS ---
PROCEDURE: ABDOMEN SINGLE VIEW 02/06/2025 REASON FOR EXAM: DAY 3 SITZ MARKER TECHNIQUE: Procedure Code: RADABD Modality: DX Procedure: ABDOMEN SINGLE VIEW COMPARISON: There is no comparison FINDINGS: There is a single marker remaining in the upper descending colon. There is increased stool load consistent with constipation. No pathologic calcification or acute bony abnormality is identified. RAD/Abdomen Single View IMPRESSION: There is a single marker remaining in the upper descending colon. Reading Location: [id number]
== END | disposition home or self-care (01) ==
LOC: RAD 08:14
PROVIDERS: PCP Nurse Practitioner; Referring Provider Nurse Practitioner Acute Care; Visit Provider Nurse Practitioner Acute Care
DX: R10.33 Periumbilical pain (principal); K22.70 Barrett's esophagus without dysplasia; K29.40 Chronic atrophic gastritis without bleeding; K59.02 Outlet dysfunction constipation; R68.81 Early satiety
CPT/HCPCS: 74018

== ENCOUNTER → 2025-02-08 | Outpatient (CLI) | payer MEDICARE, OTHER, SELFPAY ==
--- NOTE | 2025-02-08 08:48 | RAD_ITS ---
PROCEDURE: ABDOMEN SINGLE VIEW 02/08/2025 REASON FOR EXAM: DAY 5 SITZ MARKER TECHNIQUE: Procedure Code: RADABD Modality: DX Procedure: ABDOMEN SINGLE VIEW COMPARISON: KUB, 02/06/2025 FINDINGS: There is a nonobstructive bowel gas pattern. There are no abnormal soft tissue calcifications or radiopaque foreign bodies. 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 RAD/Abdomen Single View IMPRESSION: No evidence of acute abdominal pathology. No Sitz markers remain in the gastro intestinal tract. Reading Location: [id number]
== END | disposition home or self-care (01) ==
LOC: RAD 08:48
PROVIDERS: PCP Nurse Practitioner; Referring Provider Nurse Practitioner Acute Care; Visit Provider Nurse Practitioner Acute Care
DX: R10.33 Periumbilical pain (principal); K22.70 Barrett's esophagus without dysplasia; K29.40 Chronic atrophic gastritis without bleeding; K59.02 Outlet dysfunction constipation; R68.81 Early satiety
CPT/HCPCS: 74018

== ENCOUNTER → 2025-02-09 | Outpatient (CLI) | payer MEDICARE, OTHER, SELFPAY ==
--- NOTE | 2025-02-09 07:09 | US_ITS ---
PROCEDURE: ABDOMEN LIMITED 02/09/2025 REASON FOR EXAM: ABDOMINAL PAIN TECHNIQUE: Procedure Code: USABDL Modality: US Procedure: ABDOMEN LIMITED COMPARISON: None. FINDINGS: Liver: Grossly normal size and echotexture. The liver measures 13.1 cm in vertical dimension in the midclavicular line. There is normal hepatopetal flow in the portal venous system. Gallbladder: No stones, sludge, wall thickening or tenderness. Common bile duct: 3 mm. Pancreas: Visualized portions are sonographically unremarkable. Other: The kidney measures 8.8 x 5.0 x 3.9 cm. Normal cortical thickness. No hydronephrosis. No right upper quadrant ascites. US/Abdomen Limited IMPRESSION: NORMAL RIGHT UPPER QUADRANT ULTRASOUND. Reading Location: [id number]
--- OUTSIDE RECORDS SUMMARY | 2025-02-09 07:10 | XMS RPT_ITS | CCD ---
Author Organization [facility] Care Team Providers Care Biomedical Engineering Technologist Name Role Phone Murphy Cuevas MD Primary [...] Provider MD Benjamín Green Other Provider Haagen SALESPERSON FURNITURE, SALESPERSON FURNITURE-C Alondra Primary Care Provider Murphy Cuevas MD Primary Care Provider Haagen SALESPERSON FURNITURE, SALESPERSON FURNITURE-C Alondra Referring Provider OLDER, SALESPERSON FURNITURE-C CHRISTINA Primary Care Provider OLDER, SALESPERSON FURNITURE-C CHRISTINA Referring Provider MD Benjamín Green Attending Provider Murphy Cuevas MD Primary Care Provider MICHAEL MAZNANARES Attending Unavailable MICHAEL MANZANARES Admitting Unavailable MURPHY CUEVAS Primary Care Unavailable OLDER SALESPERSON FURNITURE-C, CHRISTINA Primary Care Provider OLDER SALESPERSON FURNITURE-C, CHRISTINA Referring Provider Zi SALESPERSON FURNITURE-C, Melba Attending Provider Zi SALESPERSON FURNITURE-C, Melba Referring Provider Older 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, Christina Unavailable OLDER SALESPERSON FURNITURE-C, CHRISTINA Primary Care Provider OLDER SALESPERSON FURNITURE-C, CHRISTINA Referring Provider Zi SALESPERSON FURNITURE-C, Melba Attending Provider Dr. Dhiraj King DO Attending Provider Dr. Dhiraj King DO Other Provider [phone] GANTA, MURPHY Referring Unavailable GANTA, MURPHY Primary Care Unavailable OLDER, CHRISTINA Attending Unavailable GANTA, MURPHY Primary Care Unavailable DUNG HOLMAN Attending Unavailable GANTA, MURPHY Primary Care Unavailable OLDER, CHRISTINA Attending Unavailable GANTA, MURPHY Primary Care Unavailable OLDER, CHRISTINA Referring Unavailable GANTA, MURPHY Primary Care Unavailable GLENNA, MICHAEL Attending Unavailable GANTA, MURPHY Primary Care Unavailable GLENNA, MICHAEL Attending Unavailable GLENNA, MICHAEL Referring Unavailable GANTA, MURPHY Primary Care Unavailable OLDER SALESPERSON FURNITURE-C, CHRISTINA Primary Care Physician [phone] Iz SALESPERSON FURNITURE-C, Melba Attending Physician OLDER SALESPERSON FURNITURE-C, CHRISTINA Referring Provider [phone] Dhiraj King DO Attending Physician Christine ERAZO, Dr. Hearn Nurse Practitioner OLDER, CHRISTINA Primary Care Unavailable OLDER, CHRISTINA Referring Unavailable Zi, Melba Attending Unavailable OLDER, CHRISTINA Primary Care Unavailable Zi, Melba Referring Unavailable Zi, Melba Attending Unavailable Wartmann, Christopher Referring Unavailabl e Wartmann, Christopher Attending Unavailabl e OLDER, CHRISTINA Primary Care Unavailable Zi, Melba Referring Unavailable OLDER, CHRISTINA Primary Care Unavailable Zi, Melba Attending Unavailable Zi, Melba Referring Unavailable OLDER, CHRISTINA Primary Care Unavailable Zi, Melba Attending Unavailable Wartmann, Christopher Referring Unavailabl e Wartmann, Christopher Attending Unavailabl e OLDER, CHRISTINA Primary Care Unavailable FriendDhirja Attending Unavailable OLDER, CHRISTINA Primary Care Unavailable OLDER, CHRISTINA Referring Unavailable Zi, Melba Referring Unavailable Zi, Melba Attending Unavailable OLDER, CHRISTINA Primary Care Unavailable OLDER, CHRISTINA Referring Unavailable Dhiraj King Attending Unavailable Trish Camacho Unavailable OLDER, CHRISTINA Primary Care Unavailable OLDER, CHRISTINA Primary Care Unavailable OLDER, CHRISTINA Referring Unavailable Zi, Melba Attending Unavailable OLDER, CHRISTINA Primary Care Unavailable Zi, Melba Attending Unavailable OLDER, CHRISTINA Referring Unavailable OLDER, CHRISTINA Primary Care Unavailable Zi, Melba Referring Unavailable Zi, Melba Attending Unavailable OLDER, CHRISTINA Primary Care Unavailable Zi, Melba Referring Unavailable Zi, Melba Attending Unavailable OLDER, CHRISTINA Primary Care Unavailable Zi, Melba Referring Unavailable Zi, Melba Attending Unavailable OLDER, CHRISTINA Primary Care Unavailable Zi, Melba Attending Unavailable OLDER, CHRISTINA Referring Unavailable OLDER, CHRISTINA Referring Unavailable OLDER, CHRISTINA Primary Care Unavailable Zi, Melba Attending Unavailable OLDER, CHRISTINA Referring Unavailable OLDER, CHRISTINA Primary Care Unavailable Zi, Melba Attending Unavailable OLDER, CHRISTINA Referring Unavailable OLDER, CHRISTINA Primary Care Unavailable Zi, Melba Attending Unavailable Friend, Dhiraj Attending Unavailable Friend, Dhiraj Consulting Unavailable OLDER, CHRISTINA Primary Care Unavailable OLDER, CHRISTINA Referring Unavailable OLDER, CHRISTINA Referring Unavailable Friend, Dhiraj Attending Unavailable Trish Camacho Consulting Unavailable OLDER, CHRISTINA Primary Care Unavailable Friend, Dhiraj Consulting Unavailable Medications Current Medications Medication Drug Class(es) Dates Sig (Normalized) Sig (Original) acetaminophen 500 mg oral tablet (1 source) Start: 10-27-2023 End: 11-17-2023 take 2 tablets by mouth every six hours as needed acetaminophen (TYLENOL EXTRA STRENGTH) 500 mg tablet Take 2 tablets by mouth every 6 hours as needed for pain for up to 21 days. 56 tablet 2 10/27/2023 11/17/2023 Active amoxicillin 875 mg / clavulanate 125 mg oral tablet (1 source) Penicillin-class Antibacterial Start: 04-28-2022 End: 05-03-2022 take 1 tablet by mouth twice daily amoxicillin-clavul anic acid (AUGMENTIN) 875-125 mg per tablet Take 1 tablet by mouth twice daily for 5 days. 10 tablet 0 04/28/2022 05/03/2022 Active Comment on above: Take 1 tablet by annie th twice daily for 5 days. ascorbic acid 226 mg / beta carotene 94455 unt / cuprous oxide 0.8 mg / dl-alpha tocopheryl acetate 200 unt / zinc oxide 34.8 mg oral capsule (1 source) Vitamin C Start: 12-19-2021 Vitamins A,C,P-Uidt-Zyyjzo (Preservision Areds) 14,320-226-200 kqpl-gd-hkmi capsule Active 1 NMA PO TWICE A DAY December 19, 2021 12:00am Complies with drug therapy docusate sodium 100 mg oral capsule (2 sources) Start: 10-27-2023 End: 01-25-2024 take 1 capsule by mouth twice daily docusate sodium (COLACE) 100 mg capsule Take 1 capsule by mouth two times a day. 60 capsule 2 10/27/2023 01/25/2024 Active estradiol 0.1 mg/ml vaginal cream (20 sources) Estrogen Start: 05-05-2023 End: 03-31-2024 estradiol (ESTRACE) 0.01 % (0.1 mg/gram) vaginal cream Indications: Genitourinary syndrome of menopause apply one gram or soybean sized amount over the vaginal opening every night for 2 weeks then 2 evenings per week 42.5 g 3 03/31/2024 Active Comment on above: apply one gram or so ybean sized amount over the vaginal opening every night for 2 weeks then 2 evenings per week ibuprofen 600 mg oral tablet (1 source) Nonsteroidal Anti-inflammatory Drug Start: 10-27-2023 End: 11-17-2023 take 1 tablet by mouth every six hours as needed ibuprofen (MOTRIN) 600 mg tablet Take 1 tablet by mouth every 6 hours as needed for pain for up to 21 days. 28 tablet 2 10/27/2023 11/17/2023 Active Magnesium (16 sources) Start: 09-13-2024 take 1 tablet by mouth once daily Magnesium 200 mg tablet Active 200 mg PO DAILY September 13, 2024 8:28am Complies with drug therapy Start: 09-13-2024 take 1 tablet by annie th once daily Magnesium 200 mg tablet Active 200 mg PO DAILY September 13, 2024 8:28am Start: 09-13-2024 take 1 tablet by annie th twice daily Magnesium 200 mg tablet Active 200 mg PO TWICE A DAY September 13, 2024 8:28am Start: 05-30-2024 End: 09-13-2024 take 1 tablet by mouth once daily Magnesium 200 mg tablet Discontinued 200 mg PO DAILY May 30, 2024 1:00am September 13, 2024 8:28am mecobalamin 5 mg disintegrating oral tablet (17 sources) Start: 12-19-2021 take 1 tablet by mouth once daily Mecobalamin (Vitamin B12) 5,000 mcg tablet,disintegrating Active 5000 ug PO DAILY December 19, 2021 12:00am Complies with drug therapy Start: 12-19-2021 Mecobalamin (V itamin B12) Active MCG PO December 19, 2021 12:00am metoclopramide 5 mg oral tablet (1 source) Dopamine-2 Receptor Antagonist Start: 02-02-2025 take 1 tablet by mouth 30 minutes before mealtime Metoclopramide Hcl 5 mg tablet Active 5 mg PO before meals 21 7 February 02, 2025 12:00am administer 30 minutes before meals Complies with drug therapy oxyCODONE hydrochloride 5 mg oral tablet (1 source) Opioid Agonist Start: 10-27-2023 End: 10-30-2023 take 1 tablet by mouth every six hours as needed for pain oxyCODONE IR (ROXICODONE) 5 mg immediate release tablet Indications: Postoperative pain Take 1 tablet by mouth every 6 hours as needed for pain for up to 3 days. 5 tablet 0 10/27/2023 10/30/2023 Active pantoprazole 40 mg delayed release oral tablet (8 sources) Proton Pump Inhibitor Start: 02-02-2025 take 1 tablet by mouth twice daily Pantoprazole 40 mg tablet,delayed release (DR/EC) Active 40 mg PO TWICE A DAY 180 February 02, 2025 12:00am Complies with drug therapy Start: 12-29-2024 End: 02-02-2025 take 1 tablet by mouth twice daily 30 minutes before breakfast Pantoprazole 20 mg tablet,delayed release (DR/EC) Discontinued 20 mg PO TWICE A DAY 180 December 29, 2024 1:25pm February 02, 2025 9:23am take twice daily 30 minutes before breakfast and dinner Start: 12-15-2024 End: 12-29-2024 take 1 tablet by mouth once daily 30 minutes before breakfast Pantoprazole 20 mg tablet,delayed release (DR/EC) Discontinued 20 mg PO daily 90 December 15, 2024 12:00am December 29, 2024 1:26pm take once daily 30 minutes before breakfast every morning polyethylene glycol 3350 71099 mg powder for oral solution (2 sources) Osmotic Laxative Start: 10-27-2023 End: 01-25-2024 polyethylene glycol 3350 (MIRALAX) 17 gram/dose powder Take 17 g by mouth once daily. Dissolve dose in 4 - 8 ounces of liquid and take as directed. 510 g 2 10/27/2023 01/25/2024 Active vit C/E/cuperic/zinc/lutein (PRESERVISION LUTEIN ORAL) (20 sources) vit C/E/cuperic/zinc/lutein (PRESERVISION LUTEIN ORAL) Take by [...] Comment on above: Take 1 tablet by [facility] once daily. Vitamins A,C,R-Xlte-Pnzede (Preservision Areds) 14,320-226-200 mwnj-wl-uobe capsule (16 sources) Start: 12-19-2021 Vitamins A,C,M-Tfxe-Snuaif (Preservision Areds) 14,320-226-200 qtki-zp-clld capsule Active 1 NMA PO TWICE A DAY December 19, 2021 12:00am Start: 12-19-2021 take 1 capsule by [facility] twice daily Vitamins A,C,E-Hiot-Iulepn (Preservision Areds) 14,320-226-200 vvig-jb-ahha capsule Active 1 CAP PO TWICE A DAY December 18, 2021 11:00pm Start: 12-19-2021 take 1 capsule by [facility] twice daily Vitamins A,C,B-Jvzr-Yodwbk (Preservision Areds) 14,320-226-200 srsj-sq-zrbk capsule Active 1 CAP PO TWICE A DAY December 19, 2021 12:00am wheat dextrin 3000 mg powder for oral solution (8 sources) Start: 09-13-2024 Wheat Dextrin (Benefiber Clear Sf (Dextrin)) 3 gram/3.5 gram powder in packet Active 1 NMA PO daily September 13, 2024 12:00am mix into at least 4 oz water or juice before administering Complies with drug therapy Completed/Discontinued Medications Medication Drug Class(es) Dates Sig (Normalized) Sig (Original) acetaminophen 325 mg / HYDROcodone bitartrate 5 mg oral tablet (16 sources) Opioid Agonist Start: 04-20-2022 End: 07-30-2023 take 1 tablet by mouth every six hours as needed for pain Hydrocodone-Acetami nophen 5-325 mg tablet Discontinued 1 {tbl} PO EVERY 6 HOURS NEEDED as needed for Pain 12 3 0 April 20, 2022 July 30, 2023 12:57pm Fracture of rib of left side Fracture of one rib, left side, initial encounter for closed fracture Start: 04-20-2022 End: 07-30-2023 take 1 tablet by mouth every six hours as needed Hydrocodone-Acetaminophen Discontinued 1 TABLET PO EVERY 6 HOURS NEEDED 12 3 April 20, 2022 July 30, 2023 12:57pm acetaminophen 325 mg / oxyCODONE hydrochloride 5 mg oral tablet (15 sources) Opioid Agonist Start: 04-23-2022 End: 07-30-2023 Oxycodone-Acetaminophen (Endocet) 5-325 mg tablet Discontinued 1 {tbl} PO Q4H as needed for pain 20 7 0 April 23, 2022 July 30, 2023 12:57pm Tear of medial meniscus of right knee Osteoarthritis of right knee Right knee pain Other tear of medial meniscus, current injury, right knee, initial encounter Unilateral primary osteoarthritis, right knee Pain in right knee alendronic acid 10 mg oral tablet (20 sources) Bisphosphonate Start: 09-01-2022 End: 01-04-2025 take 1 tablet by mouth every week alendronate (FOSAMAX) 35 mg tablet Indications: post-menopausal osteoporosis prevention Take 1 tablet by mouth one time a week. 12 tablet 3 01/28/2024 01/04/2025 Discontinued Start: 12-19-2021 End: 01-25-2025 take 1 tablet by mouth every week Alendronate 10 mg tablet Discontinued 10 mg PO EVERY WEEK March 31, 2024 3:30pm January 25, 2025 10:16am Start: 12-19-2021 Alendronate Ac tive 10 MG PO CRAFT December 19, 2021 12:00am Start: 03-18-2021 End: 08-30-2021 take 1 tablet by mouth every week alendronate (FOSAMAX) 35 mg tablet Indications: post-menopausal osteoporosis prevention Take 1 tablet by mouth one time a week. 12 tablet 3 03/18/2021 08/30/2021 Discontinued Comment on above: Take 1 tablet by [facility] one time a week. biotin 1 mg oral capsule (1 source) End: 06-18-2021 biotin 1 mg cap Take by mouth. 06/18/2021 Discontinued C,E,zinc,copper 03-aflkt5k-hgy (OCUVITE ADULT 50 PLUS) 250-5-1 mg cap (6 sources) Start: 05-22-2018 End: 02-06-2022 C,E,zinc,copper 54-[id number]-[id number] (OCUVITE ADULT 50 PLUS) 250-5-1 mg cap Take 1 capsule by mouth once daily. 05/22/2018 02/06/2022 Discontinued Start: 05-22-2018 End: 02-06-2022 C,E,zinc,copper 76-sjlft2u-r ut (OCUVITE ADULT 50 PLUS) 250-5-1 mg cap Take 1 capsule by mouth once daily. 0 05/22/2018 02/06/2022 Discontinued Start: 05-22-2018 C,E,zinc,coppe r 04-lrngx8i-tig (OCUVITE ADULT 50 PLUS) 250-5-1 mg cap Take 1 capsule by mouth once daily. 0 05/22/2018 Active Comment on above: Take 1 capsule by [facility] once daily. calcium carbonate 1250 mg chewable tablet (20 sources) Start: 12-19-2021 End: 01-25-2025 take 1 tablet by mouth once daily Calcium Carbonate (Calcium 500) 500 mg calcium (1,250 mg) tablet,chewable Discontinued 500 mg PO DAILY December 19, 2021 12:00am January 25, 2025 10:16am Start: 05-22-2018 take 0.5 tablet by out once daily calcium carbonate (CALCIUM 600) 600 mg calcium (1,500 mg) tab Take 0.5 tablets by mouth once daily. 05/22/2018 Active Comment on above: Take 0.5 tablets by mouth once daily. cholecalciferol 0.025 mg oral capsule [...] meal/snack Start: 12-19-2021 take 1 capsule by [facility] once daily Glucosamine-Chondroitin Active 1 CAP PO DAILY December 19, 2021 12:00am give with meal/snack End: 10-16-2023 glucosamine/chondr craft A sod (GLUCOSAMINE-CHONDROITIN) 750-600 mg tab Take by mouth twice daily. 10/16/2023 Discontinued Comment on above: Take by mouth twice daily. dicyclomine hydrochloride 10 mg oral capsule (8 sources) Anticholinergic Start: 04-25-20 24 End: 10-25-19 25 take 1 capsule by mouth three times daily as needed for pain Dicyclomine 10 mg capsule Discontinued 10 mg PO THREE TIMES A DAY as needed for abdominal pain 60 1 April 25, 2024 1:00am October 24, 2024 9:03am fluticasone propionate 0.05 mg/actuat metered dose nasal spray (20 sources) Corticosteroid Start: 09-02-19 23 End: 01-05-20 25 take 2 spray(s) by mouth once daily fluticasone (FLONASE) 50 mcg/actuation nasal spray Use 2 Sprays in each nostril once daily. Rinse mouth after use. 1 Each 3 09/01/2022 01/04/2025 Discontinued Comment on above: Use 2 Sprays in each nostril once daily. Rinse mouth after use. L.acid/L.casei/B.bif/ B.jane/FOS (PROBIOTIC BLEND ORAL) (9 sources) End: 10-16-19 24 L.acid/L.casei/B.bi f/B.jane/FOS (PROBIOTIC BLEND ORAL) Take by mouth. 0 10/16/2023 Discontinued L.acid/L.casei/B .bif/B.jane/FOS (PROBIOTIC BLEND ORAL) Take by mouth. 0 Active Comment on above: Take by mouth. linaclotide 0.072 mg oral capsule (11 sources) Guanylate Cyclase-C Agonist Start: 12-15-2024 End: 12-29-2024 Linaclotide (Linzess) 72 mcg capsule Discontinued 72 ug PO EVERY MORNING 30 2 December 15, 2024 12:00am December 29, 2024 1:27pm take once daily 30 minutes before first meal Start: 07-04-2024 End: 09-13-2024 take 1 capsule by mouth once daily 30 minutes before breakfast Linaclotide (Linzess) 145 mcg capsule Discontinued 145 ug PO EVERY MORNING 30 July 04, 2024 1:00am September 13, 2024 8:38am take 30 minutes before breakfast every morning lubiprostone 0.008 mg oral capsule (7 sources) Chloride Channel Activator Start: 10-24-2024 End: 12-15-2024 take 1 capsule by mouth twice daily Lubiprostone (Amitiza) 8 mcg capsule Discontinued 8 ug PO TWICE A DAY 60 October 24, 2024 12:00am December 15, 2024 9:15am methylPREDNISolone (1 source) Corticosteroid Start: 06-18-2021 End: 06-24-2021 methylPREDNISolone (MEDROL, JANES,) 4 mg Dose-Pack Indications: Right flank pain Follow dosing instructions, take with food. 1 Package 06/18/2021 06/24/2021 tenapanor 50 mg oral tablet (1 source) Start: 09-13-2024 End: 10-24-2024 take 1 tablet by mouth twice daily before breakfast Tenapanor (Ibsrela) 50 mg tablet Discontinued 50 mg PO TWICE A DAY 60 September 13, 2024 12:00am October 24, 2024 8:57am must administer immediately before breakfast and dinner Tenapanor (Ibsrela) 50 mg tablet (7 sources) Start: 09-13-2024 End: 10-24-2024 take 1 tablet by mouth twice daily before breakfast Tenapanor (Ibsrela) 50 mg tablet Discontinued 50 mg PO TWICE A DAY 60 September 13, 2024 12:00am October 24, 2024 8:57am must administer immediately before breakfast and dinner Start: 09-13-2024 End: 10-24-2024 take 1 tablet by mouth twice daily [...] Date Documented Da te Episodic/Chronic Abdominal pain (20 sources) Abdominal pain; Translations: [Unspecified abdominal pain] Onset: 06-23-2024 07-04-2024 Episodic Administrative/social admission (1 source) Education and/or schooling finding; Translations: [Problems related to education and literacy, unspecified] 10-13-2023 Episodic Complications of surgical procedures or medical care (1 source) Postoperative adhesions of vagina; Translations: [Postprocedural adhesions of vagina] 11-08-2024 Episodic E Codes: Fall (16 sources) Fall; Translations: [Unspecified fall, initial encounter] 04-28-2022 Episodic Esophageal disorders (11 sources) Montez's esophagus; Translations: [Montez's esophagus without dysplasia] Onset: 01-04-2025 12-15-2024 Chronic Gastritis and duodenitis (12 sources) Atrophic gastritis; Translations: [Chronic atrophic gastritis without bleeding] Onset: 02-02-2025 11-28-2024 Chronic Genitourinary symptoms and ill-defined conditions (6 sources) Mixed urinary incontinence; Translations: [Mixed incontinence] Onset: 11-08-2024 07-29-2023 Chronic Genitourinary symptoms and ill-defined conditions (2 sources) Increased frequency of urination; Translations: [Frequency of micturition] Episodic Immunizations and screening for infectious disease (2 sources) Needs influenza immunization; Translations: [Encounter for immunization] Onset: 01-04-2025 03-05-2023 Episodic Joint disorders and dislocations; trauma-related (20 sources) Tear of medial meniscus of knee; Translations: [Other tear of medial meniscus, current injury, right knee, initial encounter] Episodic Menopausal disorders (4 sources) Atrophy of vagina; Translations: [Postmenopausal atrophic vaginitis] Onset: 11-08-2024 07-29-2023 Chronic Nonmalignant breast conditions (1 source) Breast finding ; Translations: [Dense breast tissue] 03-06-2023 Episodic Nonspecific chest pain (16 sources) Chest wall pain; Translations: [Other chest pain] 04-28-2022 Episodic Nutritional deficiencies (20 sources) Cobalamin deficiency; Translations: [Deficiency of other specified B group vitamins] Onset: 06-19-2021 06-19-2021 Episodic Osteoarthritis (20 sources) Osteoarthritis of right knee joint; Translations: [Unilateral primary osteoarthritis, right knee] Chronic Osteoporosis (15 sources) Osteoporosis; Translations: [Age-related osteoporosis without current pathological fracture] Onset: 10-16-2023 10-16-2023 Chronic Other aftercare (1 source) Other terminal press operator (current) drug therapy; Translations: [Medication management] Onset: 01-04-2025 Episodic Other bone disease and musculoskeletal deformities (6 sources) Osteopenia; Translations: [Other specified disorders of bone density and structure, unspecified site] Episodic Other bone disease and musculoskeletal deformities (1 source) Other specified disorders of bone density and structure, unspecified site; Translations: [Osteopenia, unspecified location] Onset: 01-04-2025 Episodic Other circulatory disease (1 source) Elevated blood pressure; Translations: [Elevated blood-pressure reading, without diagnosis of hypertension] 03-31-2024 Episodic Other connective tissue disease (8 sources) Synovial cyst of right popliteal space; Translations: [Synovial cyst of popliteal space [Ho], right knee] 03-03-2022 Episodic Other connective tissue disease (16 sources) Synovial cyst of popliteal space [Ho], [...] for closed fracture] 04-28-2022 Episodic Other fractures (10 sources) Fracture of left rib; Translations: [Fracture of one rib, left side, initial encounter for closed fracture] 04-28-2022 Episodic Other gastrointestinal disorders (8 sources) Altered bowel function; Translations: [Change in bowel habit] 03-31-2024 Episodic Other gastrointestinal disorders (20 sources) Constipation; Translations: [Constipation, unspecified] 03-31-2024 Episodic Other gastrointestinal disorders (3 sources) Abnormal defecation; Translations: [Outlet dysfunction constipation] Episodic Other gastrointestinal disorders (2 sources) Outlet dysfunction constipation; Translations: [Outlet dysfunction constipation] Onset: 02-02-2025 Episodic Other gastrointestinal disorders (2 sources) Constipation, [...] other specified body structures] 06-19-2021 Chronic Other screening for suspected conditions (not mental disorders or infectious disease) (20 sources) Patient encounter status; Translations: [Encounter for screening mammogram for malignant neoplasm of breast] Onset: 03-08-2024 Episodic Other upper respiratory infections (2 sources) Acute [...] states; Translations: [Post-operative state] Onset: 11-08-2024 Episodic Residual codes; unclassified (1 source) Early satiety; Translations: [Early satiety] 02-02-2025 Episodic Residual codes; unclassified (2 sources) Early satiety; Translations: [Early satiety] Onset: 02-02-2025 Episodic Screening and history of mental health and substance abuse codes (2 sources) Encounter for screening for depression; Translations: [Encounter for screening examination for other mental health and behavioral disorders] Onset: 01-04-2025 Episodic Spondylosis; intervertebral disc disorders; other back problems (20 sources) Degeneration of lumbar intervertebral disc; Translations: [Other intervertebral disc degeneration, lumbar region] Onset: 04-08-2021 04-08-2021 Chronic Unclassified (9 sources) K59.00 - Constipation, unspecified,R10.33 - Periumbilical pain Unclassified (1 source) Patient encounter status 01-18-2025 Unclassified (1 source) K59.02 - Outlet dysfunction constipation,K59.00 - Constipation, unspecified Past or Other Problems Problem Classification Problem Date Documented Da te Episodic/Chronic Other gastrointestinal disorders (2 sources) Change in bowel habit; Translations: [Change in bowel habit] Onset: 03-31-2024 Episodic Other nervous system disorders (15 sources) H/O: epilepsy; Translations: [Personal history of other diseases of the nervous system and sense organs] Onset: 10-16-2023 10-16-2023 Episodic Other upper respiratory disease (1 source) Nasal congestion; Translations: [Nasal congestion] Onset: 06-06-2024 Episodic Spondylosis; intervertebral disc disorders; other back problems (20 sources) Chronic low back pain; Translations: [Chronic left-sided low back pain without sciatica] Onset: 05-22-2018 Resolved: 10-16-2023 05-22-2018 Episodic Results Test Name Value Interpretation Reference Range Facility Abdomen Single Viewon 2024 Abdomen Single View [facility] Services [address] [place] [address] [id number] Abdomen Single View MR#: [id number] Acct: [id number] Name: PHYLLIS SANCHEZ Rep #: [id number] : 1950 F 74 From: Chris Allison MD PCP: NANO BURLESON Status: REG CLI Study: Abdomen Single View Date of Exam: 02/06/25 Exam# [id number] Ordering Dr: Melba Pinon PROCEDURE: ABDOMEN SINGLE VIEW 02/06/2025 REASON FOR EXAM: DAY 3 SITZ MARKER TECHNIQUE: Procedure Code: RADABD Modality: DX Procedure: ABDOMEN SINGLE VIEW COMPARISON: There is no comparison FINDINGS: There is a single marker remaining in the upper descending colon. There is increased stool load consistent with constipation. No pathologic calcification or acute bony abnormality is identified. RAD/Abdomen Single View IMPRESSION: There is a single marker remaining in the upper descending colon. Reading Location: [id number] CC: NANO MARTIN; NANO Pinon Laboratory Chemist: Signed Normal [facility] Gastroenterology Visit Repor ton 02-02-2025 Gastroenterology Visit Report [facility] Gastroenterology [address] [place] [address] OFFICE VISIT Date of Service: 02/02/25 MR#: [id number] Acct: [id number] Name: PHYLLIS SANCHEZ Rep #: [id number] : 1950 Provider: NANO santa Age/Sex: 74/F Location: [facility] Status: Signed Intake Vital Signs 12/29/24 13:10 02/02/25 09:10 Height 5 ft 5 ft Weight: 104 lb 8 oz 105 lb BMI 20.4 20.5 BP 145/86 H 154/85 H Respiration 14 Pulse 69 71 Temp 98.4 F 97.9 F Temp Source Temporal Temporal Pulse Oximetry (%) 98 98 Oxygen Delivery Method room air room air Intake Visit Reasons: Test Result-Abd Pain/Constipation Chief Complaint: bowel changes and abdominal discomfort Allergies No Known Allergies Allergy (Verified 01/25/25 10:14) Medications ???Medication ???Instructions ???Recorded ???Confirmed ???Type mecobalamin (vitamin B12) 5,000 5,000 mcg PO DAILY 12/19/21 History mcg disintegrating tablet vitamins A,C,L-ppni-vdgyhp 4,296 1 cap PO BID 12/19/21 02/02/25 His tory mcg-226 mg-90 mg capsule (PreserVision AREDS) magnesium 200 mg tablet 200 mg PO DAILY 09/13/24 02/02/25 History wheat dextrin 3 gram/3.5 gram oral 1 packet PO QDAY 09/13/24 History powder packet (Benefiber Clear Sugar Free(dextrin)) metoclopramide HCl 5 mg tablet 5 mg PO QAC 7 days #21 tabs 02/02/25 Rx pantoprazole 40 mg tablet,delayed 40 mg PO BID #180 tabs 02/02/25 0 02/02/25 Rx release Have you fallen in the past year?: No PFSH Medical History Post-menopausal Arthritis PONV (postoperative nausea and vomiting) Leg cramps Wears glasses Alcohol use Seizures Former smoker Synovial cyst of popliteal space [Ho], right knee Tear of medial meniscus of right knee Osteoarthritis of right knee Right knee pain Surgical History History of colonoscopy History of rhinoplasty (05/03/24) History of partial hysterectomy ( 10/2023) History of arthroplasty of right knee ( 2021) History of hand surgery Family History Mother Hypertension CVA (cerebral vascular accident) Social History household members: spouse Smoking Status: Former smoker alcohol intake: current HPI HPI Chief Complaint: bowel changes and abdominal discomfort Details: OV 12/29/2024 74y/o female presents for follow-up of continued RLQ and periumbilical abdominal pain. Pain has been ongoing the past two years, intermittently severe, wakes here every day at 0530 and does not resolve until she has 1-2 BM. C/O feeling of a blockage. Denies any abdominal distension, N/V or weight loss. CT September 2024 revealed constipation, otherwise unremarkable. Denies any h/o bowel surgery or family h/o IBD. I have scheduled her for an MRE and she will follow-up in the office post to review results. Fasting gastrin 432 prior to starting PPI. 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 She remains on oral B12 supplementation and labs did not suggest Fe deficiency or B12 deficiency. She complains of increased phlegm in mornings and intermittent cough. Continues to deny any HB. She will increase pantoprazole to 20mg BID. Patient Instructions: Increase pantoprazole to 20mg BID Awaiting Tissue Cypher results MRE MRE 01/26/2025 No obvious small bowel or colon inflammatory changes or obvious masses. Colonic fecal loading. TissueCypher Montez's Esophagus test results confirmed the patient is at low risk of progression to high-grade dysplasia or esophageal cancer. This test result supports a less intensive management approach (e.g., less intensive surveillance only) and we recommend repeating the EGD in 3 years. Gastrin 12/16/2024 fasting 432, prior to starting PPI B12 12/16/2024 WNL (721) Fe panel: 12/16/2024 Fe 74, 25% saturation Anti-Parietal Cell Ab 12/03/2024 elevated 69.1 Intrinsic Factor Ab 12/03/2024 WNL (1) - she reports increasing pantoprazole to 20mg BID has helped, but still has episodes of coughing spells or increased phlegm - denies any pulmonary issues - denies coughing spells being associated with HB or after meals - Ibsrela QD and Linzess both caused diarrhea - Linzess was too expensive >$500 - weight is stable - pain has been ongoing for many years - MRE contrast caused her to have significant diarrhea, bowel clean out, does reports the periumbilical pain was decreased but short lived - denies any N/V - feels like a blockage - denies an (more content not included)... Normal [facility] Enterography Abd/Yan 01-25 Enterography Abd/Pel [facility] Imaging Services [address] [place] [address] Enterography Abd/Pel MR#: [id number] Acct: [id number] Name: PHYLLIS SANCHEZ Rep #: [id number] : 1950 F 74 From: Jhoan dunaway MD PCP: CHRISTINA MARTIN, SALESPERSON FURNITURE-C Status: REG CLI Study: Enterography Abd/Pel Date of Exam: 01/25/25 Exam# [id number] Ordering Dr: Melba Pinon SALESPERSON FURNITURE- C ADDENDUM by Dr. Jhoan Montiel MD on 01/30/25 at 0448 9 cc of Clariscan were injected intravenously. Post gadolinium images were obtained. Reading Location: [place] [address] 01/30/25 0448 Date cc: SALESPERSON FURNITUREImelda MARTIN; SALESPERSON FURNITURE-C Melba Pinon * Signed EXAM: ENTEROGRAPHY ABD/PEL 01/25/2025 CLINICAL HISTORY: K59.00 - CONSTIPATION, UNSPECIFIED. TECHNIQUE: Procedure Code: MRIMRIENTER Modality: MR Procedure: ENTEROGRAPHY ABD/PEL Multiplanar and multisequence images were obtained without intravenous gadolinium contrast. Clariscan VOLUME: 20 mL COMPARISON: 10-14-2024 CT report FINDINGS: The stomach shows average measures and wall thickness. The small bowel: The duodenum: shows normal caliber and wall thickness. The Jejunum shows standard caliber and wall thickness. The large bowel: The cecum and ascending colon, the descending and sigmoid colon show fecal loading with uniform wall thickness. No significant wall edema. The appendix is noted identified. The liver shows homogenous signa with no masses Jasmyn hepatis appears intact. Common bile duct, hepatic ducts, and intrahepatic biliary radicles are not dilated. Patent portal vein and its branches. Distended gall bladder with no dense calculi. Clear surrounding fat planes. Normal appearance of different anatomical parts of the pancreas. Both adrenals appear normal in size, shape, and configuration. Unremarkable spleen. Both kidneys appear normal in size, shape, and axis. No renal calculi. No masses, cyst or hydronephrosis was seen. Patent aorta, IVC pelvic vasculatures. No pelvic masses related to the reproductive system. Unremarkable urinary bladder. No evidence of significant enlargement of the mesenteric or retroperitoneal lymph nodes. No ascites or pelvic collections. No free intra-peritoneal air. MRI/Enterography Abd/Pel IMPRESSION: No obvious small bowel or colon inflammatory changes or obvious masses. Colonic fecal loading. Reading Location: [place] [address] CC: NANO MARTIN; NANO Pinon Laboratory Chemist: Signed Normal [facility] Telephone (INTMWS) ----- PHYLLIS SANCHEZ ([id number]) 1950 F Date Time Provider Department 01/17/25 MURPHY CUEVAS INTMWS During your visit today, we recorded the following information about you: Eden Hooks RN 01/17/2025 1:20 PM Signed Pt called in and was asking if provider could put in an order for her mammogram. Please call and let Pt know once the order is in. HUNTER Quinones Chitra, MD 01/18/2025 3:12 PM Signed Filed as requested Regards, Murphy Cuevas MD' Allergies As of Date: 01/17/2025 (No Known Allergies) Date Reviewed: 01/04/2025 Reviewed by: Christina Martin APRN.SUSPENDER MAKER - Fully Assessed Reason for Visit: Orders [681] Primary Visit Diagnosis:Encounter for screening mammogram for breast cancer [Z12.31] Order(s):TAYLOR SCREENING W AQUILES [[id number]] Order #: [id number] FUTURE Prescriptions as of 01/18/2025 - pantoprazole DR (PROTONIX) 20 mg tablet Take 20 mg by mouth once daily. - estradiol (ESTRACE) 0.01 % (0.1 mg/gram) vaginal cream apply one gram or soybean sized amount over the vaginal opening every night for 2 weeks then 2 evenings per week - vit C/E/cuperic/zinc/lutein (PRESERVISION LUTEIN ORAL) Take by mouth twice daily. - cyanocobalamin (VITAMIN B-12) 1,000 mcg tab Take 1 tablet by mouth once daily. - calcium carbonate (CALCIUM 600) 600 mg calcium (1,500 mg) tab Take 0.5 tablets by mouth once daily. Problem List As Of Date 01/17/2025 Noted Resolved Chronic left-sided low back pain without sciati*05/22/2018 10/16/2023 DDD (degenerative disc disease), lumbar [M51.36*04/08/2021 Vitamin B12 deficiency [E53.8] 06/19/2021 Solitary pulmonary nodule [R91.1] 10/16/2023 Osteoporosis [M81.0] 10/16/2023 Hx of seizure disorder [Z86.69] 10/16/2023 Uterovaginal prolapse, incomplete [N81.2] 10/26/2023 Cystocele, midline [N81.11] 10/26/2023 Rectocele [N81.6] 10/26/2023 Encounter Status:Closed by MIRLANDE MASCORRO on 01/18/25 Normal [facility] 25([place])D3 SerPl-dezon 2024 25-hydroxyvitamin D3 [Mass/Vol] 64.2 ng/mL Normal 31.0-80.0 [facility] Comment on above: Order Comment: Speci men Type: BLOOD SPECIMENOrdering Facility: [facility] Address: [address] [place] [address] Performed By: #### 1 989-3 ####[facility] LABCLIA [id number] [place] [address] [place] CBC panel Auto (Bld)on 01-05 Erythrocyte distribution width (RBC) [Ratio] 13.2 % Normal 11.5-15.0 [facility] Comment on above: Order Comment: Speci men Type: BLOOD SPECIMENOrdering Facility: [facility] Address: [address] [place] [address] Performed By: #### 5 8410-2 ####[facility] LABCLIA [id number] [address], [place] [address] [place] Hematocrit (Bld) [Volume fraction] 45.9 % Normal 36.0-46.0 [facility] Comment on above: Order Comment: Speci men Type: BLOOD SPECIMENOrdering Facility: [facility] Address: [address] [place] [address] Performed By: #### 5 8410-2 ####[facility] LABIA [id number] [place] [address] [place] Hemoglobin (Bld) [Mass/Vol] 14.7 g/dL Normal 11.5-15.5 [facility] Comment on above: Order Comment: Speci men Type: BLOOD SPECIMENOrdering Facility: [facility] Address: [address] [place] [address] Performed By: #### 5 8410-2 ####[facility] LABIA [id number] [place] [id number] [place] MCH (RBC) [Entitic mass] 30.5 pg Normal 26.0-34.0 [facility] Comment on above: Order Comment: Speci men Type: BLOOD SPECIMENOrdering Facility: [facility] Address: [address] [place] [address] Performed By: #### 5 8410-2 ####[facility] LABIA [id number] [place] [id number] [place] MCHC (RBC) [Mass/Vol] 32.0 g/dL Normal 30.5-36.0 [facility] Comment on above: Order Comment: Speci men Type: BLOOD SPECIMENOrdering Facility: [facility] Address: [address] [place] [address] Performed By: #### 5 8410-2 ####[facility] LABIA [id number] [place] [id number] [place] MCV (RBC) [Entitic vol] 95.2 fL Normal 80.0-100.0 C [facility] Comment on above: Order Comment: Speci men Type: BLOOD SPECIMENOrdering Facility: [facility] Address: [address] [place] [address] Performed By: #### 5 8410-2 ####[facility] LABIA [id number] [place] [address] [place] Nucleated RBC (Bld) [#/Vol] 10*3/uL Normal <0.01 [facility] Comment on above: Order Comment: Speci men Type: BLOOD SPECIMENOrdering Facility: [facility] Address: [address] [place] [address] Performed By: #### 5 8410-2 ####[facility] LABIA [id number] [place] [address] [place] Platelet mean volume (Bld) [Entitic vol] 11.0 fL Normal 9.0-12.7 [facility] Comment on above: Order Comment: Speci men Type: BLOOD SPECIMENOrdering Facility: [facility] Address: [address] [place] [address] Performed By: #### 5 8410-2 ####[facility] LABIA [id number] [place] [address] [place] Platelets (Bld) [#/Vol] 254 10*3/uL Normal 150-400 [facility] Comment on above: Order Comment: Speci men Type: BLOOD SPECIMENOrdering Facility: [facility] Address: [address] [place] [address] Performed By: #### 5 8410-2 ####[facility] LABCLIA [id number] [place] [address] [place] RBC (Bld) [#/Vol] 4.82 10*6/uL Normal 3.90-5.20 [facility] Comment on above: Order Comment: Speci men Type: BLOOD SPECIMENOrdering Facility: [facility] Address: [address] [place] [address] Performed By: #### 5 8410-2 ####[facility]CLIA [id number] [address] [address] [place] WBC (Bld) [#/Vol] 4.39 10*3/uL Normal 3.70-11.00 [facility] Comment on above: Order Comment: Speci men Type: BLOOD SPECIMENOrdering Facility: [facility] Address: [address] [place], [place] [address] Performed By: #### 5 8410-2 ####[facility] LABCLIA [id number] [address] [address] [place] Comprehensive metabolic 2000 panelon 01-05-2025 Albumin [Mass/Vol] 4.4 g/dL Normal 3.9-4.9 [facility] Comment on above: Order Comment: Speci men Type: BLOOD SPECIMENOrdering Facility: [facility] Address: [address] [place] [address] Performed By: #### 2 4323-8, 48621-4, 30036-3, 2777-1 ####[facility] LABIA [id number] [address] [address] [place] ALP [Catalytic activity/Vol] 86 U/L Normal 34-123 [facility] Comment on above: Order Comment: Speci men Type: BLOOD SPECIMENOrdering Facility: [facility] Address: [address] [place], [place] [address] Performed By: #### 2 4323-8, 64660-7, 63083-2, 2777-1 ####[facility]CL[facility] [id number] [address] [address] [place] ALT [Catalytic activity/Vol] 13 U/L Normal 7-38 [facility] Comment on above: Order Comment: Speci men Type: BLOOD SPECIMENOrdering Facility: [facility] Address: [address] [place], [place] [address] Performed By: #### 2 4323-8, 06796-7, 57056-4, 2777-1 ####[facility]CLIA [id number] [address] [address] [place] Anion gap [Moles/Vol] 12 mmol/L Normal 8-15 [facility] Comment on above: Order Comment: Speci men Type: BLOOD SPECIMENOrdering Facility: [facility] Address: [address] [place], [place] [address] Performed By: #### 2 4323-8, 51441-8, 51865-8, 2777-1 ####[facility]CLIA [id number] [place] [address] [place] AST [Catalytic activity/Vol] 25 U/L Normal 13-35 [facility] Comment on above: Order Comment: Speci men Type: BLOOD SPECIMENOrdering Facility: [facility] Address: [address] [place], [place] [address] Performed By: #### 2 4323-8, 59136-1, 69731-0, 2777-1 ####[facility] LABCLIA [id number] [place] [id number] [place] Bilirubin [Mass/Vol] 0.5 mg/dL Normal 0.2-1.3 [facility] Comment on above: Order Comment: Speci men Type: BLOOD SPECIMENOrdering Facility: [facility] Address: [address] [place], [place] [address] Performed By: #### 2 4323-8, 71849-5, 18187-6, 2777-1 ####[facility]CLIA [id number] [place] [id number] [place] Calcium [Mass/Vol] 9.4 mg/dL Normal 8.5-10.2 [facility] Comment on above: Order Comment: Speci men Type: BLOOD SPECIMENOrdering Facility: [facility] Address: [address] [place], [place] [address] Performed By: #### 2 4323-8, 90537-8, 81015-8, 2777-1 ####[facility]CL[facility] [id number] [address] [address] [place] Chloride [Moles/Vol] 103 mmol/L Normal 98-107 [facility] Comment on above: Order Comment: Speci men Type: BLOOD SPECIMENOrdering Facility: [facility] Address: [address] [place] [address] Performed By: #### 2 4323-8, 45759-0, 38847-0, 2777-1 ####[facility]CLIA [id number] [place] [id number] [place] CO2 [Moles/Vol] 24 mmol/L Normal 22-30 [facility] Comment on above: Order Comment: Speci men Type: BLOOD SPECIMENOrdering Facility: [facility] Address: [address] [place] [address] Performed By: #### 2 4323-8, 18826-4, 82866-6, 2777-1 ####[facility]CL[facility] [id number] [place] [id number] [place] Creatinine [Mass/Vol] 0.72 mg/dL Normal 0.58-0.96 [facility] Comment on above: Order Comment: Speci men Type: BLOOD SPECIMENOrdering Facility: [facility] Address: [address] [place], [place] [address] Performed By: #### 2 4323-8, 70467-5, 61883-9, 2777-1 ####[facility]CL[facility] [id number] [address] [address] [place] eGFRcr SerPlBld CKD-EPI 2020 89 mL/min/1.73m??? Normal >=60 [facility] Comment on above: Order Comment: Speci men Type: BLOOD SPECIMENOrdering Facility: [facility] Address: [address] [place] [address] Result Comment: Salma mated Glomerular Filtration Rate (eGFR) is calculated using the 2020 CKD-EPI creatinine equation. This equation utilizes serum creatinine, sex, and age as parameters. The creatinine assay has traceable calibration to isotope dilution-mass spectrometry. Refer to KDIGO guidelines for clinical interpretation. In patients with unstable renal function, e.g. those with acute kidney injury, the eGFR may not accurately reflect actual GFR. Performed By: #### 2 4323-8, 98214-1, 16828-2, 277- ####[facility] LABIA [id number] [place] [id number] [place] Glucose [Mass/Vol] 80 mg/dL Normal 74-99 [facility] Comment on above: Order Comment: Beltran schultz Type: BLOOD SPECIMENOrdering Facility: [facility] Address: [address] [place] [address] Result Comment: The [place] Diabetes Association (ADA) provides guidance for cutoff values for fasting glucose and random glucose. The ADA defines fasting as no caloric intake for at least 8 hours. Fasting plasma glucose results between 100 to 125 mg/dL indicate increased risk for diabetes (prediabetes). Fasting plasma glucose results greater than or equal to 126 mg/dL meet the criteria for diagnosis of diabetes. In the absence of unequivocal hyperglycemia, results should be confirmed by repeat testing. In a patient with classic symptoms of hyperglycemia or hyperglycemic crisis, random plasma glucose results greater than or equal to 200 mg/dL meet the criteria for diagnosis of diabetes. Reference: Standards of Medical Care in Diabetes 2016, [place] [employer] Association. Diabetes Care. 2016.39(Suppl 1). Performed By: #### 2 4323-8, 58902-4, 48087-3, 277-1 ####[facility]CL[facility] [id number] [address] [address] [place] Potassium [Moles/Vol] 4.1 mmol/L Normal 3.7-5.1 [facility] Comment on above: Order Comment: Beltran schultz Type: BLOOD SPECIMENOrdering Facility: [facility] Address: [address] [place], [place] [address] Performed By: #### 2 4323-8, 63601-8, 03362-0, 2777-1 ####[facility] LABCL[facility] [id number] [address] [place] [address] [place] Protein [Mass/Vol] 7.6 g/dL Normal 6.3-8.0 [facility] Comment on above: Order Comment: Speci men Type: BLOOD SPECIMENOrdering Facility: [facility] Address: [address] [place] [address] Performed By: #### 2 4323-8, 05227-6, 84092-4, 277-1 ####[facility] LABIA [id number] [address] [address] [place] Sodium [Moles/Vol] 139 mmol/L Normal 136-144 [facility] Comment on above: Order Comment: Speci men Type: BLOOD SPECIMENOrdering Facility: [facility] Address: [address] [place] [address] Performed By: #### 2 4323-8, 34048-0, 71557-7, 277-1 ####[facility] LABIA [id number] [address] [address] [place] Urea nitrogen [Mass/Vol] 11 mg/dL Normal 7-21 [facility] Comment on above: Order Comment: Speci men Type: BLOOD SPECIMENOrdering Facility: [facility] Address: [address] [place], [place] [address] Performed By: #### 2 4323-8, 40585-6, 11482-7, 2777-1 ####[facility]IA [id number] [address] [address] [place] Lipid 1996 panelon 5 Cholesterol [Mass/Vol] 214 mg/dL High <200 [facility] Comment on above: Order Comment: Speci men Type: BLOOD SPECIMENOrdering Facility: [facility] Address: [address] [place] [address] Result Comment: <200 mg/dL, Desirable 200-239 mg/dL, Borderline high >239 mg/dL, High Performed By: #### 2 4323-8, 51940-5, 50031-9, 2776- ####[facility]CLIA [id number] [facility] [id number] [place] [address] [place] Cholesterol in HDL [Mass/Vol] 62 mg/dL Normal >39 [facility] Comment on above: Order Comment: Speci men Type: BLOOD SPECIMENOrdering Facility: [facility] Address: [address] [place] [address] Result Comment: 40-5 9 mg/dL, Acceptable >59 mg/dL, High: Negative risk factor for coronary heart disease <40 mg/dL, Low: Positive risk factor for coronary heart disease Performed By: #### 2 4323-8, , , 2776-05 ####[facility]CL[facility] [id number] [address] [address] [place] Cholesterol in LDL [Mass/Vol] 138 mg/dL High <100 [facility] Comment on above: Order Comment: Speci men Type: BLOOD SPECIMENOrdering Facility: [facility] Address: [address] [place] [address] Result Comment: <100 mg/dL, Optimal 100-129 mg/dL, Near optimal/above optimal 130-159 mg/dL, Borderline high 160-189 mg/dL, High >189 mg/dL, Very high Secondary prevention optimal LDL Cholesterol levels are recommended to be <70 mg/dL LDL cholesterol is calculated using the Vaz-NIH equation. Performed By: #### 2 4323-8, , 59964-8, 2776- ####[facility]CL[facility] [id number] [address] [place] [address] [place] Cholesterol in LDL/Cholesterol in HDL [Mass ratio] 2.23 {ratio} Normal <2.54 [facility] Comment on above: Order Comment: Speci men Type: BLOOD SPECIMENOrdering Facility: [facility] Address: [address] [place] [address] Result Comment: Katelynn ríos: 1. National Cholesterol Education Program ATP III Guideline At-A-Glance Quick Desk Reference: National Heart, Lung, and Blood [place]. National Institutes of Health. 2001: NIH Publication No. 01-3305. 2. An International Atherosclerosis Society position paper: global recommendations for the management of dyslipidemia: executive summary, Atherosclerosis. 2014: 232(2):410-413. Performed By: #### 2 4323-8, 98285-8, 82534-0, 2777-1 ####[facility] LABCLIA [id number] [place] [address] [place] Cholesterol in VLDL [Mass/Vol] 15 mg/dL Normal <30 [facility] Comment on above: Order Comment: Malenai men Type: BLOOD SPECIMENOrdering Facility: [facility] Address: [address] [place] [address] Performed By: #### 2 4323-8, 62967-2, 56207-2, 2777-1 ####[facility] LABIA [id number] [place] [address] [place] Cholesterol non HDL [Mass/Vol] 152 mg/dL High <130 [facility] Comment on above: Order Comment: Malenai marion Type: BLOOD SPECIMENOrdering Facility: [facility] Address: [address] [place] [address] Result Comment: <130 mg/dL, Optimal 130-159 mg/dL, Near optimal/above optimal 160-189 mg/dL, Borderline high 190-219 mg/dL, High >219 mg/dL, Very high Secondary prevention optimal non HDL Cholesterol levels are recommended to be <100 mg/dL Performed By: #### 2 4323-8, 06359-8, 89325-9, 2777-1 ####[facility] LABCLIA [id number] [place] [id number] [place] Cholesterol.total/Jayleen sterol in HDL [Mass ratio] 3.45 {ratio} Normal <5.10 [facility] Comment on above: Order Comment: Speci men Type: BLOOD SPECIMENOrdering Facility: [facility] Address: [address] [place] [address] Performed By: #### 2 4323-8, 96288-1, 51312-8, 2777-1 ####[facility] LABCLIA [id number] [address] [place] FASTING TIME 11 hrs Normal [facility] Comment on above: Order Comment: Speci men Type: BLOOD SPECIMENOrdering Facility: [facility] Address: [address] [place] [address] Performed By: #### 2 4323-8, 12651-5, 21117-9, 277- ####[facility] LABCLIA [id number] [place] [address] [place] Triglyceride [Mass/Vol] 81 mg/dL Normal <150 [facility] Comment on above: Order Comment: Speci men Type: BLOOD SPECIMENOrdering Facility: [facility] Address: [address] [place] [address] Result Comment: <150 mg/dL, Normal 150-199 mg/dL, Borderline high 200-499 mg/dL, High >499 mg/dL, Very high Performed By: #### 2 4323-8, 52215-8, 35416-9, 277-1 ####[facility] LABIA [id number] [place] [id number] [place] Magnesium SerPl-mCncon 01-05 Magnesium [Mass/Vol] 2.1 mg/dL Normal 1.7-2.3 [facility] Comment on above: Order Comment: Speci men Type: BLOOD SPECIMENOrdering Facility: [facility] Address: [address] [place] [address] Performed By: #### 2 4323-8, 57035-4, 67451-8, 2777-1 ####[facility] LABIA [id number] [address] [address] [place] Phosphate SerPl-mCncon 01-05 Phosphate [Mass/Vol] 3.3 mg/dL Normal 2.7-4.8 [facility] Comment on above: Order Comment: Speci men Type: BLOOD SPECIMENOrdering Facility: [facility] Address: [address] [place] [address] [place] [id number] Performed By: #### 2 4323-8, 61668-8, 48215-0, 2777-1 ####[facility] LABIA [id number] [place] [id number] [place] CNOVon 01-04-2025 CNOV Office Visit (INTMWS ) ----- PHYLLIS SANCHEZ ([id number]) 1950 F Date Time Provider Department 01/04/25 9:00 AM CHRISTINA MARTIN During your visit today, we recorded the following information about you: Pulse Respiration Blood pressure Weight 80/minute 16/minute 121/71 46.7 kg Height 1.554 m Christina Martin APRN.CNP 01/04/2025 11:46 AM Signed Phyllis Sanchez is a 74 year old female here for a Medicare wellness visit. Medicare Health Risk Assessment General Health Very good Exercise: Minutes/Day 60 min Exercise: Days/Week 6 days Alcohol: Daily Use 2-3 times a week Alcohol: Drinks/Day 1 or 2 Alcohol: 6 or more drinks Never Feel off balance No Concerns: Teeth/Dentures No Concerns: Sexual function No Troubled by feelings None of the above Frequency: Eating healthy diet Several days ADLs requiring help None of the above Safety precautions in home/vehicle Decline Smoke, vape, chews tobacco No Difficulty hearing No Difficulty seeing No Current Providers Specialists: I have reviewed specialist-related care of the patient in the medical record. Gastroenterology: Dr. King Urogynecology: Dr. Helms Optometry: Dr. Gilbert Medical/Family history review Reviewed and updated problem list, medical/surgical/family/s ocial history, medications, and allergies. Opioid use review Opioid Medications (last 90 days) No data to display Anxiety/Depression screening PHQ-2 Score: 0 (Lower risk for depression) ZURI-2 Score: 0 (Lower risk for anxiety) Recommendation: no further intervention at this time Cognitive screening Mini Cog Score: 5 Cognitive screening reviewed and No further action needed (score 3-5). Functional Observation Was the patient's Timed Up AND Go test unsteady or >= 12 seconds? No Advance Care Planning Patient was not able to provide a surrogate decision maker or written advance directives Measurements BP 121/71 Pulse 80 Resp 16 Ht 155.4 cm (5' 1.18) Wt 46.7 kg (103 lb) SpO2 96% BMI 19.35 kg/m? Vision Screening: Follows with optometry/ophthalmology Assessment/Plan Medicare annual wellness visit, subsequent (Z00.00) - Counseled on healthy diet and regular exercise - Fall avoidance information provided - Personalized prevention plan provided - Counseled patient on alcohol intake and associated health risks CC: Patient presents with: Medicare Wellness Exam: Annual Medicare wellness HPI Phyllis Sanchez is a 74 year old female who presents today for medicare wellness and follow up. Recording using [employer] software for draft documentation of the visit was discussed with the patient/authorized financial foundations representative; all questions welcomed and answered. Patient/authorized financial foundations representative agreed to proceed Montez's Esophagus: - Diagnosed recently by Dr. King's office. - Started on Protonix 2-2.5 weeks ago. - Denies heartburn; experiences morning phlegm and occasional coughing spells. - Coughing spells have decreased since starting Protonix. - Denies dyspnea, wheezing, heartburn, difficulty swallowing, nausea, vomiting, fever, or chills. Osteopenia: - Diagnosed with osteopenia; last bone density scan was last year. - Taking calcium and vitamin D supplements. - On Fosamax for a couple of years, with a brief interruption in prescription. - Denies any bone fractures. - No regular weight-bearing exercise routine. - Last bone density scan showed a higher risk for hip fracture. - Taking magnesium supplements. - Consumes alcohol; denies smoking. - Last dental exam in September, with no concerns or cavities. REVIEW OF SYSTEMS General: no fevers, no chills, no night sweats, no recurrent infections, no change in appetite, no change in energy, and no significant changes in weight Respiratory: no cough, no wheezing, no shortness of breath, no hemoptysis Cardiovascular: no chest pain, no chest pressure, no palpitations, and no swelling Endocrine: no fatigue, no weight gain, no weight loss, no polyuria, no polyphagia, and no polydipsia Neurologic: No headache, weakness, numbness, dizziness, memory loss, syncope. PAST MEDICAL HISTORY [...] suspension Anterior colporrhaphy Posterior colporrhaphy Perineorrhaphy Cystoscopy (more content not included)... Normal [facility] Gastroenterology Visit Repor ton 12-29-2024 Gastroenterology Visit Report [facility] Gastroenterology [address] [place] [address] OFFICE VISIT Date of Service: 12/29/24 MR#: [id number] Acct: [id number] Name: PHYLLIS SANCHEZ Rep #: [id number] : 1950 Provider: NANO santa Age/Sex: 74/F Location: [facility] Status: Signed Intake Vital Signs 12/15/24 08:31 12/29/24 13:10 Height 5 ft 5 ft Weight: 103 lb 8 oz 104 lb 8 oz BMI 20.2 20.4 BP 151/84 H 145/86 H Respiration 16 14 Pulse 76 69 Temp 97.3 F L 98.4 F Temp Source Temporal Temporal Pulse Oximetry (%) 96 98 Oxygen Delivery Method room air room air Intake Visit Reasons: 2 W FU Chief Complaint: bowel changes and abdominal discomfort Buffet Attendant Required: No Accompanied by: Self Is patient in pain?: No Allergies No Known Allergies Allergy (Verified 12/29/24 13:04) Medications ???Medication ???Instructions ???Recorded ???Confirmed ???Type calcium carbonate (Calcium 500) 500 mg PO DAILY 12/19/21 12/29/24 History mecobalamin (vitamin B12) 5,000 5,000 mcg PO DAILY 12/19/21 History mcg disintegrating tablet vitamins A,C,K-jjrs-kkyesm 4,296 1 cap PO BID 12/19/21 12/29/24 His tory mcg-226 mg-90 mg capsule (PreserVision AREDS) alendronate 10 mg tablet 10 mg PO QWEEK 03/31/24 12/29/24 H istory magnesium 200 mg tablet 200 mg PO DAILY 09/13/24 12/29/24 History wheat dextrin 3 gram/3.5 gram oral 1 packet PO QDAY 09/13/24 History powder packet (Benefiber Clear Sugar Free(dextrin)) pantoprazole 20 mg tablet,delayed 20 mg PO BID #180 tabs 12/29/24 0 12/29/24 Rx release Have you fallen in the past year?: No PFSH Medical History Post-menopausal Arthritis PONV (postoperative nausea and vomiting) Leg cramps Wears glasses Alcohol use Seizures Former smoker Synovial cyst of popliteal space [Ho], right knee Tear of medial meniscus of right knee Osteoarthritis of right knee Right knee pain Surgical History History of colonoscopy History of rhinoplasty (05/03/24) History of partial hysterectomy ( 10/2023) History of arthroplasty of right knee ( 2021) History of hand surgery Family History Mother Hypertension CVA (cerebral vascular accident) Social History household members: spouse Smoking Status: Former smoker alcohol intake: current HPI HPI Chief Complaint: bowel changes and abdominal discomfort Details: OV 12/15/2024 74-year-old female presents for follow-up post procedure. 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 The patient denies heartburn, which is not uncommon, and will be started on a daily PPI medication to manage potential acid exposure. TissueCypher Montez's Esophagus test has been ordered to assess patient's risk of progression to high-grade dysplasia or esophageal cancer. Results will inform subsequent management plan. 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 The patient is on supplementation due to a known B12 deficiency, which is typical in atrophic gastritis, and will have levels rechecked. She also reports she is uncertain if she was fasting at time Gastrin was drawn and will have this repeated tomorrow. AMAG is associated with impaired iron and vitamin B12 absorption, increasing the risk for iron deficiency anemia and pernicious anemia. There is also an increased risk for type I gastric neuroendocrine tumors and, to a lesser extent, gastric adenocarcinoma, particularly in the presence of extensive intestinal metaplasia or concomitant???H. pylori???infection. Ongoing surveillance for micronutrient deficiencies and consideration of endoscopic follow-up are recommended per current guidelines. The persistent lower abdominal pain, described as stabbing and present for years, typically resolves after bowel movements. Previous treatments, including Linzess and dicyclomine, have not been effective, and further evaluation with anorectal manometry is planned to assess pelvic floor function. Patient Instructions: Repeat labs tomorrow - FASTING (Gastrin, B12) Ordered TissueCypher Montez's Esophagus test to assess patient's risk of progression to high-grade dysplasia or esophageal cancer. Results will inform subsequent management plan. - Start taking the prescribed heartburn medication daily after completion of repeat gastrin. - C (more content not included)... Normal [facility] Gastrin, Serumon 12-19-2024 GASTRIN 432 pg/mL High 0-115 [facility] Comment on above: Order Comment: FASTI NG Result Comment: Siem ens Immulite 2000 Immunochemiluminometric assay (ICMA) Values obtained with different assay methods or kits cannot be used interchangeably. Results cannot be interpreted as absolute evidence of the presence or absence of malignant disease. Performed at: [address] [id number] [place] Laborer: Joao Burnham MD, Phone: [phone] Performed By: #### L 503.6030, L100.0100, L3300.1800, L503.0106 ####[facility] [address] [place], [place], [id number] Absolute lymphocyte countOrd ered By: Melba Pinon on 12-16-2024 Lymphocytes Auto (Unsp spec) [#/Vol] 1.30 10*3/uL 0.83-4.51 [facility] Absolute neutrophil countOrd ered By: Melba Pinon on 12-16-2024 Neutrophils (Bld) [#/Vol] 3.3 10*3/uL 2.0-7.7 [facility] Automated lymphocyte count a s percentage of total leukocytesOrdered By: Melba Pinon on 12-16-2024 Lymphocytes/100 WBC Auto (Unsp spec) 24.3 % 19-41 [facility] Basophil percentageOrdered B y: Melba Pinon on 12-16-2024 Basophils/100 WBC (Bld) 0.7 % 0-1 [facility] CBC W/Diff, Automatedon 080 Absolute Lymph 1.30 X10 3/uL Normal 0.83-4.51 [facility] Comment on above: Performed By: #### L 503.6030, L100.0100, L3300.1800, L503.0106 ####[facility] [address] [place], [address] Absolute Neut 3.3 X10 3/uL Normal 2.0-7.7 [facility] Comment on above: Performed By: #### L 503.6030, L100.0100, L3300.1800, L503.0106 ####[facility] [address] [place], [address] Basophils/100 WBC (Bld) 0.7 % Normal 0-1 [facility] Comment on above: Performed By: #### L 503.6030, L100.0100, L3300.1800, L503.0106 ####[facility] [address] [place], [address] Eosinophils/100 WBC (Bld) 1.9 % Normal 0-5 [facility] Comment on above: Performed By: #### L 503.6030, L100.0100, L3300.1800, L503.0106 ####[facility] [address] [place], [address] Erythrocyte distribution width (RBC) [Ratio] 13.2 % Normal 11.6-14.6 [facility] Comment on above: Performed By: #### L 503.6030, L100.0100, L3300.1800, L503.0106 ####[facility] [address] [place], [address] Hematocrit (Bld) [Volume fraction] 45.0 % Normal 37-47 [facility] Comment on above: Performed By: #### L 503.6030, L100.0100, L3300.1800, L503.0106 ####[facility] [address] [place], [address] Hemoglobin (Bld) [Mass/Vol] 14.7 g/dL Normal 12.0-15.0 [facility] Comment on above: Performed By: #### L 503.6030, L100.0100, L3300.1800, L503.0106 ####[facility] [address] [place], [address] IG% 0.200 Normal 0.0-0.9 [facility] Comment on above: Result Comment: IG% - Immature Granulocytes (promyelocytes, myelocytes and metamyelocytes) > 1% indicates that a LEFT SHIFT is Present. Performed By: #### L 503.6030, L100.0100, L3300.1800, L503.0106 ####[facility] [address] [place], [address] Lymphocytes/100 WBC (Bld) 24.3 % Normal 19-41 [facility] Comment on above: Performed By: #### L 503.6030, L100.0100, L3300.1800, L503.0106 ####[facility] [address] [place], [address] MCH (RBC) [Entitic mass] 30.6 pg Normal 27.0-32.0 [facility] Comment on above: Performed By: #### L 503.6030, L100.0100, L3300.1800, L503.0106 ####[facility] [address] [place], [address] MCHC (RBC) [Mass/Vol] 32.7 g/dL Normal 32-36 [facility] Comment on above: Performed By: #### L 503.6030, L100.0100, L3300.1800, L503.0106 ####[facility] [address] [place], [address] MCV (RBC) [Entitic vol] 93.6 fL Normal 81-99 [facility] Comment on above: Performed By: #### L 503.6030, L100.0100, L3300.1800, L503.0106 ####[facility] [address] [place], [address] Monocytes/100 WBC (Bld) 11.6 % High 0-10 [facility] Comment on above: Performed By: #### L 503.6030, L100.0100, L3300.1800, L503.0106 ####[facility] [address] [place], [address] Neutrophils/100 WBC (Bld) 61.3 % Normal 47-70 [facility] Comment on above: Performed By: #### L 503.6030, L100.0100, L3300.1800, L503.0106 ####[facility] [address] [place], [address] Nucleated RBC (Bld) [#/Vol] 0 10*3/uL Normal 0-5 [facility] Comment on above: Performed By: #### L 503.6030, L100.0100, L3300.1800, L503.0106 ####[facility] [address] [place], [address] Platelet mean volume (Bld) [Entitic vol] 9.8 fL Normal 6.2-12.0 [facility] Comment on above: Performed By: #### L 503.6030, L100.0100, L3300.1800, L503.0106 ####[facility] [address] [place], [address] Platelets (Bld) [#/Vol] 307 10*3/uL Normal 150-450 [facility] Comment on above: Performed By: #### L 503.6030, L100.0100, L3300.1800, L503.0106 ####[facility] [address] [place], [address] RBC (Bld) [#/Vol] 4.81 10*6/uL Normal 4.2-5.4 [facility] Comment on above: Performed By: #### L 503.6030, L100.0100, L3300.1800, L503.0106 ####[facility] [address] [place], [address] RDW SD 45.9 fl High 35.1-43.9 [facility] Comment on above: Performed By: #### L 503.6030, L100.0100, L3300.1800, L503.0106 ####[facility] [address] [place], [address] WBC (Bld) [#/Vol] 5.4 10*3/uL Normal 4.4-11.0 [facility] Comment on above: Performed By: #### L 503.6030, L100.0100, L3300.1800, L503.0106 ####[facility] [address] [place], [address] Eosinophil percentageOrdered By: Melba Pinon on 12-16-2024 Eosinophils/100 WBC (Bld) 1.9 % 0-5 [facility] Erythrocyte distribution wid th ratioOrdered By: Melba Pinon on 12-16-2024 Erythrocyte distribution width (RBC) [Ratio] 13.2 % 11.6-14.6 [facility] Erythrocyte distribution wid th standard deviationOrdered By: Melba Pinon on 12-16-2024 Erythrocyte distribution width (RBC) [Ratio] 45.9 fl High 35.1-43.9 [facility] Gastrin, serumOrdered By: Demarcus Pinon on 12-16-2024 Gastrin [Mass/Vol] 432 pg/mL High 0-115 [facility] Comment on above: Siemens Immulite 200 0 Immunochemiluminometric assay (ICMA)Values obtained with different assay methods or kits cannotbe used interchangeably. Results cannot be interpreted asabsolute evidence of the presence or absence of malignantdisease.Performed at: [address] [id number] Director: Joao Burnham MD, Phone: [phone] Hematocrit Auto (Bld) [Volum e fraction]Ordered By: Melba Pinon on 12-16-2024 Hematocrit (Bld) [Volume fraction] 45.0 % 37-47 [facility] Hemoglobin measurementOrdere d By: Melba Pinon on 12-16-2024 Hemoglobin (Bld) [Mass/Vol] 14.7 g/dL 12.0-15.0 [facility] Immature granulocytes/100 WB C Auto (Bld)Ordered By: Melba Pinon on 12-16-2024 Immature granulocytes/100 WBC (Bld) 0.200 % 0.0-0.9 [facility] Comment on above: IG% - Immature Granu locytes (promyelocytes, myelocytes and metamyelocytes) > 1% indicates that a LEFT SHIFT is Present. Iron measurement (mass/mass) Ordered By: Melba Pinon on 12-16-2024 Iron (Unsp spec) [Mass/Mass] 74 ug/dL 50-170 [facility] Iron+Iron Binding Capacityon 12-16-2024 Iron [Mass/Vol] 74 ug/dL Normal 50-170 [facility] Comment on above: Order Comment: FASTI NG Performed By: #### L 503.6030, L100.0100, L3300.1800, L503.0106 ####[facility] [address] [place], [address] IRON SATURATION 25.0 Normal 13-59 [facility] Comment on above: Order Comment: FASTI NG Performed By: #### L 503.6030, L100.0100, L3300.1800, L503.0106 ####[facility] [address] [place], [address] TIBC 295 ug/dL Normal 250-450 [facility] Comment on above: Order Comment: FASTI NG Performed By: #### L 503.6030, L100.0100, L3300.1800, L503.0106 ####[facility] [address] [place], [address] UIBC 221 ug/dL Low 228-428 [facility] Comment on above: Order Comment: FASTI NG Performed By: #### L 503.6030, L100.0100, L3300.1800, L503.0106 ####[facility] [address] [place], [address] MCV (mean corpuscular volume ) determinationOrdered By: Melba Pinon on 12-16-2024 MCV (RBC) [Entitic vol] 93.6 fL 81-99 [facility] Mean corpuscular hemoglobin (MCH) determinationOrdered By: Melba Pinon on 12-16-2024 MCH (RBC) [Entitic mass] 30.6 pg 27.0-32.0 [facility] Mean corpuscular hemoglobin concentration (MCHC) determinationOrdered By: Melba Pinon on 12-16-2024 MCHC (RBC) [Mass/Vol] 32.7 g/dL 32-36 [facility] Mean platelet volume determi nationOrdered By: Melba Pinon on 12-16-2024 Platelet mean volume (Bld) [Entitic vol] 9.8 fL 6.2-12.0 [facility] Monocyte percentageOrdered B y: Melba Pinon on 12-16-2024 Monocytes/100 WBC (Bld) 11.6 % High 0-10 [facility] Neutrophil percentageOrdered By: Melba Pinon on 12-16-2024 Neutrophils/100 WBC (Bld) 61.3 % 47-70 [facility] No Panel InformationOrdered By: Melba Pinon on 12-16-2024 Unsaturated Iron Binding Capacity 221 ug/dL Low 228-428 [facility] Nucleated red blood cell per centageOrdered By: Melba Pinon on 12-16-2024 Nucleated RBC/100 WBC (Bld) [Ratio] 0 % 0-5 [facility] Platelet countOrdered By: Demarcus Pinon on 12-16-2024 Platelets (Bld) [#/Vol] 307 10*3/uL 150-450 [facility] RBC Auto (Bld) [#/Vol]Ordere d By: Melba Pinon on 12-16-2024 RBC (Bld) [#/Vol] 4.81 10*6/uL 4.2-5.4 [facility] Serum or plasma iron saturat ion measurement (mass fraction)Ordered By: Melba Pinon on 12-16-2024 Iron saturation [Mass fraction] 25.0 % 13-59 [facility] Vitamin B12on 12-16-2024 Cobalamin (Vitamin B12) [Mass/Vol] 721 pg/mL Normal 180-914 [facility] Comment on above: Performed By: #### L 503.6030, L100.0100, L3300.1800, L503.0106 ####[facility] [address] [place], [address] Vitamin B12 ser/plasOrdered By: Melba Pinon on 12-16-2024 Cobalamin (Vitamin B12) [Mass/Vol] 721 pg/mL 180-914 [facility] White blood cell (WBC) count Ordered By: Melba Pinon on 12-16-2024 WBC (Bld) [#/Vol] 5.4 10*3/uL 4.4-11.0 [facility] Gastroenterology Visit Repor ton 12-15-2024 Gastroenterology Visit Report [facility] Gastroenterology [address] [place] [address] OFFICE VISIT Date of Service: 12/15/24 MR#: [id number] Acct: [id number] Name: PHYLLIS SANCHEZ Rep #: [id number] : 1950 Provider: NANO santa Age/Sex: 74/F Location: [facility] Status: Signed Intake Vital Signs 11/08/24 13:42 12/15/24 08:31 Height 5 ft 5 ft Weight: 103 lb 8 oz BMI 20.2 BP 151/84 H Respiration 16 Pulse 76 Temp 97.3 F L Temp Source Temporal Pulse Oximetry (%) 96 Oxygen Delivery Method room air Intake Visit Reasons: Follow Up Chief Complaint: bowel changes and abdominal discomfort Allergies No Known Allergies Allergy (Verified 11/08/24 13:39) Medications ???Medication ???Instructions ???Recorded ???Confirmed ???Type calcium carbonate (Calcium 500) 500 mg PO DAILY 12/19/21 12/15/24 History mecobalamin (vitamin B12) 5,000 5,000 mcg PO DAILY 12/19/21 History mcg disintegrating tablet vitamins A,C,W-jhwy-vncweh 4,296 1 cap PO BID 12/19/21 12/15/24 His tory mcg-226 mg-90 mg capsule (PreserVision AREDS) alendronate 10 mg tablet 10 mg PO QWEEK 03/31/24 12/15/24 H istory magnesium 200 mg tablet 200 mg PO DAILY 09/13/24 12/15/24 History wheat dextrin 3 gram/3.5 gram oral 1 packet PO QDAY 09/13/24 History powder packet (Benefiber Clear Sugar Free(dextrin)) linaclotide 72 mcg capsule 72 mcg PO QAM #30 caps 12/15/24 Rx (Linzess) pantoprazole 20 mg tablet,delayed 20 mg PO QDAY #90 tabs 12/15/24 0 12/15/24 Rx release Have you fallen in the past year?: No PFSH Medical History Post-menopausal Arthritis PONV (postoperative nausea and vomiting) Leg cramps Wears glasses Alcohol use Seizures Former smoker Synovial cyst of popliteal space [Ho], right knee Tear of medial meniscus of right knee Osteoarthritis of right knee Right knee pain Surgical History History of colonoscopy History of rhinoplasty (05/03/24) History of partial hysterectomy ( 10/2023) History of arthroplasty of right knee ( 2021) History of hand surgery Family History Mother Hypertension CVA (cerebral vascular accident) Social History household members: spouse Smoking Status: Former smoker alcohol intake: current HPI HPI Chief Complaint: bowel changes and abdominal discomfort Details: OV 10/24/2024 73y/o female presents for follow-up of lower mid abdominal pain and constipation. CT completed 10/14/2024 with contrast revealed borderline gastric wall thickening (possibly related to under distension of the stomach), constipation, and possible bladder lesion. She trialed Ibsrela for constipation and discontinued due to causing diarrhea. She previously failed Linzess secondary to diarrhea. I have prescribed Amitiza 8mcg BID, she will start once daily and titrate to BID dosing as tolerated. I have recommended ARM, referral placed to [facility]. In terms of CT findings, she underwent partial hysterectomy with bladder suspension and Bulkamid in 2023. She will follow-up with Urogynecology to review CT findings. Note: QRuso speech recognition lawn care professional software was used to create portions of this document. Sound-alike and misspelled words, as well as other lawn care professional errors may be contained in the documentation. Patient Instructions: - Amitiza 8mcg BID for constipation - May use Magnesium Citrate 250mg 2 capsules once daily for constipation if not able to get Amitiza - Follow-up with Dr. Manzanares (Urogynecology) at [facility] regarding CT findings, she will obtain a copy of CT on disc - EGD EGD 11/08/2024 - Montez's and Gastric body, biopsy: - Antral-like mucosa with intestinal metaplasia, negative for dysplasia ??? see note. - IHC negative for H.pylori organisms. Note: IHC for Chromogranin highlights nodular and linear ECL-cell hyperplasia. 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 - Z-line irregular, 40 cm from the incisors. Biopsied. - Small hiatal hernia. - Erythematous mucosa in the gastric body. Biopsied. - No gross lesions in the entire examined duodenum. COLON 06/01/2024 - TI biopsy unremarkable - [...] this pain at the time of CT Fasting Gastrin 923 Anti-Parietal Cell Ab 69.1 Intrin (more content not included)... Normal [facility] Anti-Parietal Cell AB, QNon 12-06-2024 ANTIPARIET CELL 69.1 Units High 0.0-20.0 [facility] Comment on above: Result Comment: Nega tive 0.0 - 20.0 Equivocal 20.1 - 24.9 Positive >24.9 Parietal Cell Antibodies are found in 90% of patients with pernicious anemia and 30% of first degree relatives with pernicious anemia. Performed By: #### L 3300.1800, L3410.0900, L3410.1000, L503.0106 ####[facility] [address] [place], [place], [address] Gastrin, Serumon 12-06-2024 GASTRIN 923 pg/mL High 0-115 [facility] Comment on above: Order Comment: fastbeth ng Result Comment: Iza stringer Immulite 2000 Immunochemiluminometric assay (ICMA) Values obtained with different assay methods or kits cannot be used interchangeably. Results cannot be interpreted as absolute evidence of the presence or absence of malignant disease. Performed By: #### L 3300.1800, L3410.0900, L3410.1000, L503.0106 ####[facility] [address] [place], [place], [address] Intrinsic Factor Abon 2024 INTRINS FACT AB 1.0 AU/mL Normal 0.0-1.1 [facility] Comment on above: Result Comment: Perf ormed at: - [facility] [id number] [place] Laborer: Joao Burnham MD, Phone: [phone] Performed at: [facility] [id number] [place] Laborer: Joaquin Lombardo PhD, Phone: [phone] Performed By: #### L 3300.1800, L3410.0900, L3410.1000, L503.0106 ####[facility] [address] [place], [place], [id number] Gastrin, serumOrdered By: Demarcus Pinon on 12-03-2024 Gastrin [Mass/Vol] 923 pg/mL High 0-115 [facility] Comment on above: Siemens Immulite 200 0 Immunochemiluminometric assay (ICMA)Values obtained with different assay methods or kits cannotbe used interchangeably. Results cannot be interpreted asabsolute evidence of the presence or absence of malignantdisease. Serum parietal cell antibody assay (units/volume)Ordered By: Melba Pinon on 12-03-2024 Parietal cell Ab Qn (S) 69.1 Units High 0.0-20.0 [facility] Comment on above: Negative 0.0 - 20.0 Equivocal 20.1 - 24.9 Positive >24.9Parietal Cell Antibodies are found in 90% of patientswith pernicious anemia and 30% of first degreerelatives with pernicious anemia. Vitamin B12on 12-03-2024 Cobalamin (Vitamin B12) [Mass/Vol] 608 pg/mL Normal 180-914 [facility] Comment on above: Performed By: #### L 3300.1800, L3410.0900, L3410.1000, L503.0106 ####[facility] [address] [place], [address] Vitamin B12 ser/plasOrdered By: Melba Pinon on 12-03-2024 Cobalamin (Vitamin B12) [Mass/Vol] 608 pg/mL 180-914 [facility] CNOVon 11-08-2024 CNOV Office Visit (GYURWP ) ----- DANIELPHYLLIS Bowling Vladimir ([id number]) 1950 F Date Time Provider Department 11/08/24 8:30 AM DUNG HOLMAN GYURWP During your visit today, we recorded the following information about you: Pulse Blood pressure Weight 90/minute 145/84 47.2 kg Dung Holman, 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 11/08/2024 8:36 AM Signed Female Pelvic Medicine [...] the PFSH obtained by others. Dung Holman APRN.SUSPENDER MAKER Pbx Installer offered: Patient declines. SENSITIVE EXAM: The sensitive examination was discussed with the Patient or Patient's Authorized Dialysis Technician. As applicable, any other physician, advance practice provider, medical student, or other health professional student that will be observing or involved in the sensitive examination for educational or training purposes was discussed with the Patient or Authorized Dialysis Technician. The Patient or Authorized Dialysis Technician has agreed to proceed with the sensitive [...] which included preparing to see the patient, eofc-sq-gljf patient care, completing clinical documentation, performing a medically appropriate examination, and counseling and educating the patient/family/caregiver. Dung Holman APRN.SUSPENDER MAKER Allergies As of Date: 11/08/2024 (No Known Allergies) Date Reviewed: 11/08/2024 Reviewed by: Jossie Rosales LPN - Fully Assessed Reason for Visit: Follow Up [171] Primary Visit Diagnosis:Post-operative state [Z98.890] Other Visit Diagnoses:JEMIMA (stress urinary [...] daily. Rinse mouth after use. - vit C/E/cuperic/zinc/lutein (PRESERVISION LUTEIN ORAL) Take by [...] for Encounter Date Provider Department Center 11/08/2024 [id number] HOLMANJUSTIN Dotson Encounter Status:Closed by DUNG HOLMAN on 11/08/24 Normal [facility] EGD Reporton 11-08-2024 EGD Report [facility] Medical Records Department [address] [place], [place] [address] [address] EGD Report MR#: [id number] Acct: [id number] Name: PHYLLIS SANCHEZ Rep #: [id number] : 1950 73 From: Dhiraj King DO PCP: NANO BURLESON Status:REG [facility] Patient Name: Phyllis Sanchez Procedure Date: 11/08/2024 [...] pathology results. Procedure Code(s): --- Professional --- 24506, Small intestinal endoscopy, enteroscopy beyond second portion of duodenum, not including ileum; with biopsy, single or multiple CPT copyright 2021 [employer]. All rights reserved. The codes documented in this report are preliminary and upon magazine keeper review may be revised to meet current compliance requirements. Dhiraj King DO 11/08/2024 2:57:35 PM This report has been signed electronically. Number of Addenda: 0 Note Initiated On: 11/08/2024 2:38 PM 11/08/24 1457 Date Dhiraj Bartlettignbrenda Signature: Date (if indicated) CC: NANO MARTIN; Dhiraj King DO Date Dictated: 11/08/24 1438 Date Transcribed: Laboratory Chemist: JOHNY Signed Normal [facility] Immunohistochemical Stainson 11-08-2024 Immunohistochemical Stains Patient Age/Sex Location Account Attending Physician PHYLLIS SANCHEZ 73/F EN [id number] Dhiraj King DO Specimen: [id number] Received: 11/08/24-1603 Status: LOU Huynh Num: [id number] Spec Type: EGD BIOPSY Abdullahi Dr: Dhiraj King DO HEADER OPERATION: EGD, biopsy PRE-OP DIAGNOSIS: Constipation, abdominal pain, abnormal CT scan, bladder TISSUE SUBMITTED: A- Gastric body biopsy, B- Distal esophagus biopsy MICROSCOPIC DIAGNOSIS A. Gastric body, biopsy: - [...] totally submitted in one cassette. Kathe 11/09/2024 CPT:13179f4,26290,47599j0 Patient Age/Sex Location Account Attending Physician PHYLLIS SANCHEZ 73/ EN [id number] Dhiraj King DO ADDENDUM Addendum 1 Entered: 01/12/259 This addendum is added to incorporate an outside pathology consultation report. The case was examined at [facility] and the following diagnosis was rendered. TISSUE CYPHER - MONTEZ'S ESOPHAGUS REPORT - B1: RISK CLASS: LOW RISK SCORE: 5.3 5-year probability of progression: 6% Please see complete above mentioned consultation report in EMR Addendum Signed (signature on file) Dr. Leslie Rolon MD 01/12/25 1321 Patient Age/Sex Location Account Attending Physician DANIELPHYLLISKRISHNA HUSTON 73/F EN [id number] Dhirajemelyn King DO Signed (signature on file) Dr. Leslie Rolon MD 11/22/24 1330 Normal [facility] Comment on above: Performed By: #### P [facility] ####[facility] [address] [facility] [place], [place], [address] MR/POSTOP.ANEon 11-08-2024 MR/POSTOP.[facility] Medical Records Department [address] [place] [address] Anesthesia Postop Eval I 11/08/24 1500 MR#: [id number] Acct: [id number] Name: DANIELPHYLLIS Bowling ROBEL Rep #: [id number] : 1950 73 From: David Jeffries PCP: CHRISTINA MARTIN SALESPERSON FURNITUREElviaC Status:REG SDC Y Race: C Location: [place] [address] Anesthesia: Postop Eval I Current Vital Signs [...] 1 completed: Yes 11/08/24 1501 Date David Lynnbrenda aCstilloigner Signature: Date CC: Signed Normal [facility] MR/[id number] 11-08-2024 [facility] Medical Records Department [address] [place] [address] Anesthesia Postop Eval II 11/08/24 1707 MR#: [id number] Acct: [id number] Name: PHYLLIS SANCHEZBRENDA Rep #: [id number] : 1950 73 From: Jeane Alfaro CRNA PCP: CHRISTINA MARTIN SALESPERSON FURNITURE-C Status:[facility] Y Race: C Location: EN Anesthesia Postop [...] No Vomiting: No Complications Anesthesia Complication: No 11/08/24 1707 Date Jeane Alfaro CRNA Cosigner Signature: Date CC: Signed Normal [facility] Gastroenterology Visit Repor ton 10-24-2024 Gastroenterology Visit Report [facility] Gastroenterology [address] [place] [address] OFFICE VISIT Date of Service: 10/24/24 MR#: [id number] Acct: [id number] Name: PHYLLIS SANCHEZ Rep #: [id number] : 1950 Provider: NANO santa Age/Sex: 73/F Location: [facility] Status: Signed Intake Vital Signs 09/13/24 08:32 10/24/24 08:35 Height 5 ft 5 ft Weight: 107 lb 105 lb 8 oz BMI 20.9 20.6 BP 136/85 H 153/84 H Respiration 16 16 Pulse 75 70 Pulse Oximetry (%) 96 97 Oxygen Delivery Method room air room air Intake Visit Reasons: CT scan results Chief Complaint: bowel changes and abdominal discomfort Buffet Attendant Required: No Accompanied by: Self Is patient [...] leakage 2023 - UroGYN Dr. Manzanares - [facility] - she reports about 10 days [...] pain with (more content not included)... Normal [facility] Abdomen/Pelvis WITH Contrast on 10-14-2024 Abdomen/Pelvis WITH Contrast [facility] Imaging Services [address] [place] [address] Abdomen/Pelvis WITH Contrast MR#: [id number] Acct: [id number] Name: PHYLLIS SANCHEZ Rep #: [id number] : 1950 F 73 From: Ralph Lawler MD PCP: CHRISTINA MARTIN SALESPERSON FURNITURE-C Status: REG CLI Study: Abdomen/Pelvis WITH Contrast Date of Exam: Exam# [id number] Ordering Dr: Melba Pinon SALESPERSON FURNITURE- C PROCEDURE: ABDOMEN/PELVIS WITH CONTRAST 10/14/2024 REASON [...] or gastritis. Constipation. Reading Location: [place] [address] CC: NANO MARTIN; NANO Pinon Laboratory Chemist: Signed Normal [facility] Gastroenterology Visit Repor ton 09-13-2024 Gastroenterology Visit Report [facility] Gastroenterology [address] [place] [address] OFFICE VISIT Date of Service: 09/13/24 MR#: [id number] Acct: [id number] Name: PHYLLIS SANCHEZ Rep #: [id number] : 1950 Provider: NANO santa Age/Sex: 73/F Location: [facility] Status: Signed Intake Vital Signs 07/04/24 13:06 04/29/25 08:32 Height 5 ft 5 ft Weight: 106 lb 4 oz 107 lb BMI 20.7 20.9 BP 142/90 H 136/85 H Respiration 18 16 Pulse 75 Pulse Oximetry (%) 96 96 Oxygen Delivery Method room air room air Intake Visit Reasons: 2 M FU Chief Complaint: bowel changes and abdominal discomfort Buffet Attendant Required: No Is patient in pain?: No Allergies No Known Allergies Allergy (Verified 07/04/24 13:05) Medications ???Medication ???Instructions ???Recorded ???Confirmed ???Type calcium carbonate (Calcium 500) 500 mg PO DAILY 12/19/21 09/13/24 History mecobalamin (vitamin B12) 5,000 5,000 mcg PO DAILY 12/19/21 History mcg disintegrating tablet vitamins A,C,V-tiqj-dmfkda 4,296 1 cap PO BID 12/19/21 09/13/24 [...] didn't pick it up at the pharmacy. COUNTS INCLUDE 234 BEDS AT THE [facility] Medical History Post-menopausal Arthritis PONV (postoperative [...] and constipatio (more content not included)... Normal [facility] Gastroenterology Visit Repor ton 07-04-2024 Gastroenterology Visit Report [facility] Gastroenterology [address] [place] [address] OFFICE VISIT Date of Service: 07/04/24 MR#: [id number] Acct: [id number] Name: PHYLLIS SANCHEZ Rep #: [id number] : 1950 Provider: NANO santa Age/Sex: 73/F Location: [facility] Status: Signed Intake Vital Signs 06/01/24 05:52 07/04/24 13:06 Height 5 ft 5 ft Weight: 106 lb 4 oz BMI 20.7 BP 142/90 H Respiration 18 Pulse Oximetry (%) 96 Oxygen Delivery Method room air Intake Visit Reasons: Follow up Chief Complaint: bowel changes and abdominal discomfort Buffet Attendant Required: No Is patient in pain?: No Allergies No Known Allergies Allergy (Verified 07/04/24 13:05) Medications ???Medication ???Instructions ???Recorded ???Confirmed ???Type calcium carbonate (Calcium 500) 500 mg PO DAILY 12/19/21 07/04/24 History mecobalamin (vitamin B12) 5,000 5,000 mcg PO DAILY 12/19/21 History mcg disintegrating tablet vitamins A,C,O-gjji-ghjbuu 4,296 1 cap PO BID 12/19/21 07/04/24 [...] at least 5 days a week - early childhood assistant wakes her up - pain is central [...] or ot (more content not included)... Normal [facility] Colonoscopy Reporton 025 Colonoscopy Report [facility] Medical Records Department [address] [place] [address] Colonoscopy Report MR#: [id number] Acct: [id number] Name: PHYLLIS SANCHEZ Rep #: [id number] : 1950 73 From: Dhiraj King DO PCP: NANO BURLESON Status:REG [facility] Patient Name: Phyllis Sanchez Procedure Date: 06/01/2024 6:41 AM Date of : 1950 Age: 73 Procedure: Colonoscopy Indications: Generalized abdominal pain Providers: Dhiraj King DO Referring MD: Christina Martin Np-patria Medicines: Monitored Anesthesia Care Patient Profile: This [...] screening purposes. Procedure Code(s): --- Professional --- 01160, Colonoscopy, flexible; with biopsy, single or multiple CPT copyright 2021 [employer]. All rights reserved. The codes documented in this report are preliminary and upon magazine keeper review may be revised to meet current compliance requirements. Dhiraj King DO 06/01/2024 7:25:52 AM This report has been signed electronically. Number of Addenda: 0 Note Initiated On: 06/01/2024 6:41 AM 06/01/[address] Date Dhiraj King DO Cosigner Signature: Date (if indicated) CC: SALESPERSON FURNITURE-C CHRISTINA MARTIN; Dhiraj King DO Date Dictated: 06/01/24 0641 Date Transcribed: Laboratory Chemist: JOHNY Signed [facility] MR/POSTOP.Misty 06-01-2024 MR/POSTOP.[facility] Medical Records Department [address] [place] [address] Anesthesia Postop Eval I 06/01/24 0732 MR#: [id number] Acct: [id number] Name: DANIELPHYLLISKRISHNA HUSTON Rep #: [id number] : 1950 73 From: David Jeffries PCP: CHRISTINA MARTIN SALESPERSON FURNITURE-C Status:REG SDC Y Race: C Location: [place] [address] Anesthesia: Postop Eval I Current Vital Signs [...] Anesthesia document: Postop Eval 1 completed: Yes 06/01/24732 Date David Castilloignbrenda Signature: Date CC: Signed Normal [facility] MR/[id number] 06-01-2024 [facility] Medical Records Department [address] [place] [address] Anesthesia Postop Eval II 06/01/24 0845 MR#: [id number] Acct: [id number] Name: PHYLLIS SANCHEZ Rep #: [id number] : 1950 73 From: Daljit Prater MD PCP: NANO BURLESON Status:[facility] Y Race: C Location: EN Anesthesia Postop [...] Pain Level: 0 nausea: No Vomiting: No 06/01/24 0845 Date Daljit Valadez Signature: Date CC: Signed Normal [facility] Surgery Specimen Level Frida 06-01-2024 Surgery Specimen Level IV Patient Age/Sex Location Account Attending Physician PHYLLIS SANCHEZ 73/F EN [id number] Dhiraj King DO Specimen: [id number] Received: 01/ Status: LOU Huynh Num: [id number] Spec Type: COLON BX Subm Dr: Dhiraj Kign, HEADER OPERATION: Colonoscopy biopsy PRE-OP DIAGNOSIS: Abdominal pain, change in bowel habits, constipation TISSUE SUBMITTED: Terminal ileum biopsy MICROSCOPIC DIAGNOSIS Terminal ileum, biopsy: Fragments of [...] specimen is totally submitted in one cassette. Jean-Pierre 06/01/2024 TC:4 CPT:55710 Patient Age/Sex Location Account Attending Physician PHYLLIS SANCHEZ 73/F EN [id number] Dhiraj King DO Signed (signature on file) Dr. Travis Velasquez MD 06/02/24 1149 Normal [facility] Comment on above: Performed By: #### P SUIV ####[facility] [address] [place], [address] /PAT.SWATIon 05-30-2024 /PAT.[facility] Medical Records Department [address] [place] [address] PAT - Anesthesia 05/30/24917 MR#: [id number] Acct: [id number] Name: PHYLLIS SANCHEZ Rep #: [id number] : 1950 73 From: Daljit Prater MD PCP: NANO BURLESON Status:PRE [facility] Y Race: C Location: EN Pre-Assessment Diagnosis/Proposed Procedure Planned Operative Procedure(s): CSCOPE Anesthesia History Anesthesia History - hat and cap parts cutter hand: Anesthesia History - hat and cap parts cutter hand Hx Hospitalization No 05/30/24 08:28 Any Problems [...] am of surgery PONV PONV - hat and cap parts cutter hand: PONV - hat and cap parts cutter hand Female Yes 05/30/24 08:28 HX of Motion [...] 14:32 Respiratory Assessment Respiratory Assessment - hat and cap parts cutter hand: Respiratory Tract Infection Hx - hat and cap parts cutter hand Hx Respiratory Tract Infection No 05/30/24 08:28 STOP Sleep Apnea STOP Sleep Apnea - hat and cap parts cutter hand: STOP Sleep Apnea - hat and cap parts cutter hand Hx Hypertension No 05/30/24 08:28 Hx Sleep [...] Use History Tobacco Use History - hat and cap parts cutter hand: Tobacco Use History - hat and cap parts cutter hand Tobacco Use Smoking Status Former smoker 05/30/24 08:28 Hx Tobacco Use Yes 05/30/24 08:28 Years Smoking Packs Smoked per Day Smoking Cessation Date was No - quit smoking greater 05/30/24 08:28 within the last 15 years than 15 years ago Hx Smoking Cessation Date 05/18/79 05/30/24 08:28 Hx Smoking Cessation Counseling Hematologic Medial History 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 Hx of Blood Transfusion No 05/30/24 08:28 [...] unrespo /Reproduction History /Reproductive History - hat and cap parts cutter hand: /Reproductive Hx- hat and cap parts cutter hand Hx Now No 05/30/24 08:28 Gestational Age (in weeks): EDC: Hx Hx Para Hx Section SAB No 05/30/24 08:28 COUNTS INCLUDE 234 BEDS AT [facility] Medical History (Updated 05/30/24 @ 08:37 [...] 12/19/21 04/22/22 History mcg disintegrating tablet vitamins A,C,E-utjo-qdrxww 4,296 1 cap PO BID 12/19/21 04/22/22 History mcg-226 mg-90 mg capsule (PreserVision AREDS) alendronate 10 mg tablet 10 mg PO .once a week 03/31/24 Unknown History dicyclomine 10 mg capsule 10 mg PO TID PRN abdominal pain 04/25/24 Unknown Rx #60 caps m (more content not included)... Normal [facility] Surgery Specimen Level Frida 05-03-2024 Surgery Specimen Level IV Patient Age/Sex Location Account Attending Physician PHYLLIS SANCHEZ 73/F LABSPEC [id number] Bjorn Alvarado Specimen: [id number] Received: 05/05/24 Status: LOU Huynh Num: [id number] Spec Type: ETH TISS Subm Dr: Dr. Buddy Shelton MD HEADER OPERATION: Open septo rhinoplasty, maxillary antrostomy, right and left PRE-OP DIAGNOSIS: External nasal valve collapse, dynamic, hypertrophy of nasal turbinates, nasal congestion TISSUE SUBMITTED: Left nasal sinus contents MICROSCOPIC DIAGNOSIS Left nasal sinus contents: Fragments [...] in one cassette after decalcification. 05/05/2024 TC:3 [facility]:[address], [address] Patient Age/Sex Location Account Attending Physician PHYLLIS SANCHEZ 73/F LABSPEC [id number] Bjorn Alvarado Signed (signature on file) Dr. Travis Velasquez MD 05/09/24 1232 Normal [facility] Comment on above: Performed By: #### P SUIV ####[facility] [address] [place], [address] CNOVon 03-31-2024 CNOV Office Visit (INTMWS ) ----- PHYLLIS SANCHEZ ([id number]) 1950 F Date Time Provider Department 03/31/24 7:20 AM CHRISTINA MARTIN INTSIMONE During your visit today, we recorded the following information about you: Respiration Weight 16/minute 47.2 kg Christina Martin APRN.SUSPENDER MAKER 03/31/2024 7:51 AM Signed CC: Patient presents [...] Discontinued DATA REVIEWED: Most recent labs from [facility] ASSESSMENT/PLAN: 1. Elevated blood pressure reading - ICD9: 796.2, ICD10: R03.0 (primary diagnosis) - Encouraged dietary sodium restriction/DASH diet - Recommended regular aerobic exercise. - Recommend home blood pressure monitoring, to bring results in on next visit - Recheck in 2 week, sooner if needed. - Goal of BP <130/80 2. Genitourinary syndrom (more content not included)... Normal [facility] Gastroenterology Visit Repor ton 03-31-2024 Gastroenterology Visit Report [facility] Gastroenterology [address] [place] [address] OFFICE VISIT Date of Service: 03/31/24 MR#: [id number] Acct: [id number] Name: PHYLLIS SANCHEZ Rep #: [id number] : 1950 Provider: NANO santa Age/Sex: 73/F Location: [facility] Status: Signed Intake Vital Signs 08/06/23 14:32 03/31/24 14:32 Height 5 ft Weight: 109 lb 104 lb BMI 21.2 BP 156/92 H Respiration 16 Pulse 74 Temp 97.9 F Pulse Oximetry (%) 97 Intake Visit Reasons: Abdominal pain Chief Complaint: bowel changes and abdominal discomfort Buffet Attendant Required: No Is patient in pain?: Yes Allergies No Known Allergies Allergy (Verified 03/31/24 14:28) Medications ???Medication ???Instructions ???Recorded ???Confirmed ???Type calcium carbonate (Calcium 500) 500 mg PO DAILY 12/19/21 03/31/24 History mecobalamin (vitamin B12) 5,000 5,000 mcg PO DAILY 12/19/21 03/31/24 History mcg disintegrating tablet vitamins A,C,F-sluk-siqldy 4,296 1 cap PO BID 12/19/21 03/31/24 [...] is smaller and she goes more often. COUNTS INCLUDE 234 BEDS AT THE [facility] Medical History Alcohol use Former smoker Osteoarthritis [...] change Aller/Imm Allergy/Immunologic: No itchy eyes Manuel/Lymp Hematologic/Lymphatic: No easy bleeding or easy bruising Exam Const General: healthy appearing, no acute distress and well developed Nutritional Appearance: average body habitus and well nourished Orientation: alert and oriented x3 [facility] Head: normocephalic Ears: hearing grossly normal bilaterally Mouth: moist mucous membranes Teeth and gingiva: dentition normal Eyes Conjunctivae: conjunctivae normal Sclera: sclerae normal Neck Neck: normal visual inspection, full ROM and trachea midline Resp Effort Inspection: normal respiratory effort, able to speak in complete sente (more content not included)... Normal [facility] 03-23-2024 [facility] Telephone (GYURWP) ----- DANIELPHYLLIS Bowling ([id number]) 1950 F Date Time Provider Department 03/23/24 [...] Allergies) Date Reviewed: 02/22/2024 Reviewed by: Jaye Randolph, HUNTER - Fully Assessed Reason for Visit: Care Coordination [4391] Cmt: Bulkamid Follow-Up Prescriptions as of 03/23/2024 [...] daily. Rinse mouth after use. - vit C/E/cuperic/zinc/lutein (PRESERVISION LUTEIN ORAL) Take by [...] Status:Closed by ELIZABETH TOMAS on 03/23/24 Normal [facility] 12 Lead EKGon 03-21-2024 12 Lead EKG [facility] Cardiovascular Services [address] [place] [address] 12 Lead EKG 03/21/24 0727 MR#: [id number] Acct: [id number] Name: PHYLLIS SANCHEZ Rep #: [id number] : 1950 73 From: Juan Carlos Rader MD Attending Dr: Dr. Buddy Shelton MD Statu s: REG CLI Ordering Dr: Buddy Shelton MD Date: 4 Location: [facility] Sex: F C Admitted: Test Reason [...] enlargement borderline Confirmed by Juan Carlos Rader ([id number]), online content editor LAY ROBERSON ([id number]) on 03/22/2024 9:13:57 AM Referred By: Buddy Shelton Confirmed By: Juan Carlos Rader 03/22/24 0914 Date Juan Carlos Rader MD CC: NANO MARTIN; Dr. Buddy Shelton MD Signed Normal [facility] Basic Metabolic Profile (BMP )on 03-21-2024 BUN/CRE 19.6 RATIO Normal 10-20 [facility] Comment on above: Performed By: #### L 100.0500, L500.2500 ####[facility] [address] [place], [address] CA,Total 9.1 mg/dL Normal 8.5-10.1 [facility] Comment on above: Performed By: #### L 100.0500, L500.2500 ####[facility] [address] [place], [address] Chloride [Moles/Vol] 107 mmol/L Normal 98-107 [facility] Comment on above: Performed By: #### L 100.0500, L500.2500 ####[facility] [address] [place], [address] CO2 [Moles/Vol] 26.0 mmol/L Normal 21.0-32.0 [facility] Comment on above: Performed By: #### L 100.0500, L500.2500 ####[facility] [address] [place], [address] Creatinine [Mass/Vol] 0.77 mg/dL Normal 0.55-1.02 [facility] Comment on above: Result Comment: The validity of the calculated GFR GFRAA in patients over 70 years has not been determined. Clinical correlation is essential. Performed By: #### L 100.0500, L500.2500 ####[facility] [address] [place], [address] EST GFR - AA 96 mL/min Normal >60 [facility] Comment on above: Result Comment: Afri can [place] GFR Calc Performed By: #### L 100.0500, L500.2500 ####[facility] [address] [place], [address] GAP 6 Normal 5-15 [facility] Comment on above: Performed By: #### L 100.0500, L500.2500 ####[facility] [address] [place], [address] GFR/1.73 sq M.predicted among non-blacks MDRD (S/P/Bld) [Vol rate/Area] 79 mL/min/{1.73_m2} Normal >60 [facility] Comment on above: Result Comment: Non- GFR Calc Performed By: #### L 100.0500, L500.2500 ####[facility] [address] [place], [address] Glucose [Mass/Vol] 94 mg/dL Normal 74-106 [facility] Comment on above: Performed By: #### L 100.0500, L500.2500 ####[facility] [address] [place], [address] Potassium [Moles/Vol] 4.0 mmol/L Normal 3.5-5.1 [facility] Comment on above: Performed By: #### L 100.0500, L500.2500 ####[facility] [address] [place], [address] Sodium [Moles/Vol] 139 mmol/L Normal 136-145 [facility] Comment on above: Performed By: #### L 100.0500, L500.2500 ####[facility] [address] [place], [address] Urea nitrogen [Mass/Vol] 15 mg/dL Normal 7-18 [facility] Comment on above: Performed By: #### L 100.0500, L500.2500 ####[facility] [address] [place], [address] CBC-Complete Blood Cnt No Di marta 03-21-2024 Erythrocyte distribution width (RBC) [Ratio] 13.5 % Normal 11.6-14.6 [facility] Comment on above: Performed By: #### L 100.0500, L500.2500 ####[facility] [address] [place], [address] Hematocrit (Bld) [Volume fraction] 43.9 % Normal 37-47 [facility] Comment on above: Performed By: #### L 100.0500, L500.2500 ####[facility] [address] [place], [address] Hemoglobin (Bld) [Mass/Vol] 14.5 g/dL Normal 12.0-15.0 [facility] Comment on above: Performed By: #### L 100.0500, L500.2500 ####[facility] [address] [place], [address] MCH (RBC) [Entitic mass] 30.3 pg Normal 27.0-32.0 [facility] Comment on above: Performed By: #### L 100.0500, L500.2500 ####[facility] [address] [place], [address] MCHC (RBC) [Mass/Vol] 33.0 g/dL Normal 32-36 [facility] Comment on above: Performed By: #### L 100.0500, L500.2500 ####[facility] [address] [place], [address] MCV (RBC) [Entitic vol] 91.6 fL Normal 81-99 [facility] Comment on above: Performed By: #### L 100.0500, L500.2500 ####[facility] [address] [place], [address] Platelet mean volume (Bld) [Entitic vol] 10.0 fL Normal 6.2-12.0 [facility] Comment on above: Performed By: #### L 100.0500, L500.2500 ####[facility] [address] [place], [address] Platelets (Bld) [#/Vol] 225 10*3/uL Normal 150-450 [facility] Comment on above: Performed By: #### L 100.0500, L500.2500 ####[facility] [address] [place], [address] RBC (Bld) [#/Vol] 4.79 10*6/uL Normal 4.2-5.4 [facility] Comment on above: Performed By: #### L 100.0500, L500.2500 ####[facility] [address] [place], [address] RDW SD 46.3 fl High 35.1-43.9 [facility] Comment on above: Performed By: #### L 100.0500, L500.2500 ####[facility] [address] [place], [address] WBC (Bld) [#/Vol] 4.4 10*3/uL Normal 4.4-11.0 [facility] Comment on above: Performed By: #### L 100.0500, L500.2500 ####[facility] [address] [place], [address] DBT Breast - bilateral jasmin larkin 03-08-2024 IMPRESSION: There is no mammographic evidence [...] Hipolito Black M.D. Electronically signed on: 03/08/2024 Laboratory Chemist: MARIAN Transcrigiselle Date/Time: Mar 08 2024 7:35A Dictated by: HIPOLITO BLACK MD This examination was interpreted and the report reviewed and electronically signed by: HIPOLITO BLACK MD on Mar 08 2024 9:30AM [facility] DIVISION OF RADIOLOGY * * *Final Report* * * DATE OF EXAM: Mar 08 2024 8:11AM [facility] 0582 - [facility] SCREENING W AQUILES / PROCEDURE REASON: Encounter for screening mammogram for breast cancer * * * * Physician Interpretation * * * * RESULT: [facility] [address] [place] [address] HISTORY: Patient is 73 years old and [...] the prior study. DIVISION OF RADIOLOGY Provider, [facility] - 03/08/2024 * * *Final Report* * * DATE OF EXAM: Mar 08 2024 8:11AM [facility] 0582 - [place] SCREENING W AQUILES / PROCEDURE REASON: Encounter for screening mammogram for breast cancer * * * * Physician Interpretation * * * * RESULT: [facility] [address] [place] [phone] HISTORY: Patient is 73 years old and [...] Hipolito Black M.D. Electronically signed on: 03/08/2024 Laboratory Chemist: MARIAN Transcribe Date/Time: Mar 08 2024 7:35A Dictated by: HIPOLITO BLACK MD This examination was interpreted and the report reviewed and electronically signed by: HIPOLITO BLACK MD on Mar 08 2024 9:30AM EST [facility] Radiology Study observation (narrative) Rayna suggs [facility] DBT Breast - bilateral scree ningOrdered By: Ccf Provider on 03-08-2024 [facility] SCREENING W TOMOon 03-08 [facility] SCREENING W AQUILES * * *Final Report* * * DATE OF EXAM: Mar 08 2024 8:11AM [facility] 0582 - [place] SCREENING W AQUILES / PROCEDURE REASON: Encounter for screening mammogram for breast cancer * * * * Physician Interpretation * * * * RESULT: [facility] [address] [id number] HISTORY: Patient is 73 years old and [...] Hipolito Black M.D. Electronically signed on: 03/08/2024 Laboratory Chemist: MARIAN Transcribe Date/Time: Mar 08 2024 7:35A Dictated by: HIPOLITO BLACK MD This examination was interpreted and the report reviewed and electronically signed by: HIPOLITO BLACK MD on Mar 08 2024 9:30AM EST [id number] Normal [facility] CNOVon 02-22-2024 CNOV Office Visit (GYURWP ) ----- PHYLLIS SANCHEZ ([id number]) 1950 F Date Time Provider Department 02/22/24 1:30 PM MICHAEL MANZANARES GYURWP During your visit today, we recorded the [...] There were no complications. Complications: none LOT: [id number] Exp: 2026-04-16 Procedure Summary: Patient tolerated procedure well. Medications: Prophylactic antibiotics Plan: Follow up 1 month for postop check via nurse phone call. If she's doing well plan for 1y postop in October 2024. If not can follow up for another visit. 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 #:[id number] Prescriptions as of 02/22/2024 - alendronate (FOSAMAX) [...] daily. Rinse mouth after use. - vit C/E/cuperic/zinc/lutein (PRESERVISION LUTEIN ORAL) Take by [...] Status:Closed by MICHAEL MANZANARES on 02/22/24 Normal [facility] UA DIP, URINE (POC)on 2023 BILIRUBIN UA (POCT) Negative Negative [facility] CLARITY UA (POCT) [facility] COLOR UA (POCT) Yellow [facility] GLUCOSE UA (POCT) Negative Negative mg/dL [facility] Hemoglobin Ql (U) Negative Negative [facility] KETONE UA (POCT) Negative Negative mg/dL [facility] LEUKOCYTES UA (POCT) Negative Negative [facility] NITRITE UA (POCT) Negative Negative [facility] PH UA (POCT) 8.0 4.5 - 8.0 [facility] Protein Ql (U) Negative Negative mg/dL [facility] SPECIFIC GRAVITY UA (POCT) 1.015 1.005 - 1.030 [facility] UROBILINOGEN UA (POCT) 0.2 Elo l E.U./dL [facility] Location:[facility], [address] [place], [place], [address] [facility] POINT OF CARE [facility] CNOVon 02-05-2024 CNOV Office Visit (GYURWP ) ----- PHYLLIS SANCHEZ ([id number]) 1950 F Date Time Provider Department 02/05/24 11:45 AM MICHAEL MANZANARES GYURWP During your visit today, we recorded the [...] discussed with the Patient or Patient's Authorized Dialysis Technician. As applicable, any other physician, advance practice provider, medical student, or other health professional student that will be observing or involved in the sensitive examination for educational or training purposes was discussed with the Patient or Authorized Dialysis Technician. The Patient or Authorized Dialysis Technician has agreed to proceed with the sensitive examination. (Sensitive examination includes inspection and/or palpation of the breasts, pelvis, prostate and anorectal regions) Pbx Installer declined. OBJECTIVE: BP 130/82 Ht 154.9 cm [...] Assessed Re (more content not included)... Normal [facility] 02-05-2024 CNPN Telephone (GYURWP) ----- PHYLLIS SANCHEZ ([id number]) 1950 F Date Time Provider Department 02/05/24 MICHAEL MANZANARES GYJUSTIN During your visit today, we recorded the following information about you: Elizabeth Tomas, RN 02/05/2024 3:43 PM Signed Bulkamid referral received [...] Patient scheduled with Dr. Manzanares 02/21 at [facility] and in need of ppx abx. Sending to clay dry press mixer operator for orders. Eden Karimi RN February 11, 2024 1:13 PM === PHARMACY TEAM ==== NO AUTHORIZATION REQUIRED Per [facility] Registration, patient has Medicare Part B as primary insurance. No authorization required. Coverage of services is always based on medical necessity. Dung Holman APRN.CNP 02/11/2024 4:44 PM Signed Bactrim rx sent. MILAGROS Blount Jaime L, APRN.CNP 02/11/2024 4:44 PM Signed Addended by: [...] Care Coordination [3491] Cmt: Bulkamid Primary Visit Diagnosis:Prophylactic antibiotic [Z79.2] Order(s):sulfamethoxazole -trimethoprim (BACTRIM DS) 800-160 mg per tabletTake 1 tablet by mouth two times a day for 3 days. Start day before procedure.Disp: 6 tabletRfl: 0 Prescriptions as of 02/12/2024 - sulfamethoxazole-trimetho prim (BACTRIM DS) 800-160 mg per tablet Take [...] daily. Rinse mouth after use. - vit C/E/cuperic/zinc/lutein (PRESERVISION LUTEIN ORAL) Take by [...] Status:Closed by ELIZABETH TOMAS on 02/05/24 Normal [facility] UA DIP, URINE (POC)on 2023 BILIRUBIN UA (POCT) Negative Negative [facility] CLARITY UA (POCT) [facility] COLOR UA (POCT) Yellow [facility] GLUCOSE UA (POCT) Negative Negative mg/dL [facility] Hemoglobin Ql (U) Large Abnormal Negative [facility] Interpretation and review of laboratory results Abnormal [facility] KETONE UA (POCT) Negative Negative mg/dL [facility] LEUKOCYTES UA (POCT) Negative Negative [facility] NITRITE UA (POCT) Negative Negative [facility] PH UA (POCT) 8.0 4.5 - 8.0 [facility] Protein Ql (U) Negative Negative mg/dL [facility] SPECIFIC GRAVITY UA (POCT) 1.015 1.005 - 1.030 [facility] UROBILINOGEN UA (POCT) 0.2 Elo l E.U./dL [facility] Location:[facility] UROGYNECOLOGY, [address] [place], [place], [address] [facility] POINT OF CARE [facility] ANES POSTPROC EVALon 024 ANES POSTPROC EVAL HNO ID: [id number] Author: JUSTINO HENDERSON MD Service: Anesthesiology Author Type: Anesthesiologist Type: Anesthesia Postprocedure Evaluation Filed: 10/27/2023 16:04 Note Text: POST ANESTHESIA EVALUATION NOTE : 1950 Procedure Summary Date: 10/27/23 Room / Location: ORA / OR Anesthesia Start: 731 Anesthesia Stop: [...] October 27, 2023 TIME: 4:04 PM CSN: [id number] [facility] ANES PRE-OPon 10-27-2023 ANES PRE-OP HNO ID: [id number] Author: JUSTINO HENDERSON MD Service: Anesthesiology Author [...] (Vagina ) PERINEOPLASTY, NON-OBSTETRICAL (Vagina ) [facility]: Michael Manzanares MD Estimated [...] October 27, 2023 TIME: 6:55 AM CSN: [id number] [facility] BRIEF OP NOTon 10-27-2023 BRIEF OP NOT HNO ID: [id number] Author: DOROTA BARR DO Service: Urogynecology Author Type: Fellow Type: Brief Op Note Filed: 10/27/2023 10:45 Note Text: BRIEF OPERATIVE / PROCEDURE NOTE LOG ID: [id number] Surgery/Procedure Date: 10/27/2023 Incision/Procedure Start Time: 8:10 AM Incision Close/Procedure End Time: 10:32 AM Surgeon(s)/Proceduralist( s) and Asset Administrator(s): Surgeon(s) and Role: * Michael Manzanares MD [...] incontinence, Urge urinary incontinence, and Fecal incontinence Post-Op/Post-Procedure Diagnosis: same SIGNATURE: Dorota Barr DO DATE: October 27, 2023 PATIENT NAME: Phyllis Sanchez TIME: 10:44 AM [facility] CONFIRM BLOOD TYPEon 024 ABO A [facility] Comment on above: Order Comment: Speci men Type: BLOOD SPECIMEN Ordering Facility: [facility] Address: [address] [place] [address] Performed By: #### C ONABO #### [facility] CLIA [id number] [address] [id number] [place] Rh Nom (Bld) Positive [facility] Comment on above: Order Comment: Speci men Type: BLOOD SPECIMEN Ordering Facility: [facility] Address: [address] [place] [address] Performed By: #### C ONABO #### [facility] CLIA [id number] [address] [place] [address] [place] NURSING PROGon 10-27-2023 NURSING PROG HNO ID: [id number] Author: JEANE VILLARREAL RN Service: ? Author Type: Registered Nurse Type: Nursing Progress Note Filed: 10/27/2023 18:13 Note Text: Other: voiding trial started. 1730 Patient failed voiding trial. Allen catheter placed. Notified Dr. Barr. 1745 Per instructions- patient instructed to follow up in [place] office on Thursday for Allen catheter removal and to check MYCHART for time of appointment. [facility] OPERATIVE NOon 10-27-2023 OPERATIVE NO HNO ID: [id number] Author: MICHAEL MANZANARES MD Service: Urogynecology Author Type: Physician Type: Operative Report Filed: 10/29/2023 11:30 Note Text: OPERATIVE/PROCEDURE REPORT LOG ID: [id number] Surgery/Procedure Date: 10/27/2023 Incision/Procedure Start Time: 8:10 AM Incision Close/Procedure End Time: 10:32 AM Surgeon(s)/Proceduralist( s) and Asset Administrator(s): Surgeon(s) and Role: * Michael Manzanares MD [...] None Pre-Op/Pre-Procedure Diagnosis: Cystocele, Uterovaginal prolapse, Rectocele Post-Op/Post-Procedure Diagnosis: same Drains: Allen Catheter Indications: The [...] grabbed the right fallopian tube with a [place]. It was clamped with a Zeppelin clamp, cut and suture ligated with a 2-0 Vicryl. Excellent hemostasis was noted. All specimen were sent to pathology. A jhbxyg-dn-kaale sutures of 0-Vicryl was placed along the right lateral vaginal cuff for hemostasis. The long weighted retractor was then re (more content not included)... Normal [facility] SURGICAL PATHOLOGYon 024 CASE REPORT Normal [facility] Comment on above: Order Comment: Speci men Type: TISSUE SPECIMEN Ordering Facility: [facility] Address: [address] [place] [address] Result Comment: Surg [facility] Pathology Report Case: [id number] Authorizing Provider: Michael Manzanares MD Collected: 10/27/2023 08:38 AM Ordering Location: [facility] Received: 10/27/2023 11:10 AM Surgical Services Pathologist: Isabella Lin MD Specimens: A) - Uterus and Cervix B) - Fallopian Tube, Right, Resection, right fallopian tube Performed By: #### S #### [facility] CLIA [id number] [address] [place] [address] CLINICAL HISTORY Normal [facility] Comment on above: Order Comment: Speci men Type: TISSUE SPECIMEN Ordering Facility: [facility] Address: [address] [place] [address] Result Comment: Pre- op diagnosis: Uterovaginal prolapse, incomplete [N81.2] Cystocele, midline [N81.11] Rectocele [N81.6] Performed By: #### S #### [facility] CLIA [id number] [address] [place] [address] FINAL DIAGNOSIS [facility] Comment on above: Order Comment: Speci men Type: TISSUE SPECIMEN Ordering Facility: [facility] Address: [address] [place] [address] Result Comment: A. U terus and cervix, vaginal hysterectomy -Cervix: No significant pathologic abnormality -Endometrium: Benign inactive endometrium -Myometrium: No significant pathologic abnormality -Serosa: No significant pathologic abnormality B. Fallopian tube, right, salpingectomy -Fimbriated fallopian tube with no significant pathologic abnormality Performed By: #### S #### [facility] CLIA [id number] [address] [place] [address] FINAL PERFORMING LAB [facility] Comment on above: Order Comment: Speci men Type: TISSUE SPECIMEN Ordering Facility: [facility] Address: [address] [place] [address] Result Comment: Diag nostic interpretation performed at [facility], [address] [place] [address] CLIA# [id number] Wildlife Officer: Chase Will M.D. Performed By: #### S #### [facility] CLIA [id number] [address] [place] [address] [place] GROSS DESCRIPTION Normal [facility] Comment on above: Order Comment: Speci men Type: TISSUE SPECIMEN Ordering Facility: [facility] Address: [address] [place] [address] Result Comment: A. U terus and Cervix [...] 1.0 cm in thickness and is unremarkable. Dialysis Technician sections are submitted as follows: A1 anterior [...] in one cassette. Gross examination performed at [facility], [address] [place] [address] CLIA# [id number] [facility] 10/27/23 Performed By: #### S #### [facility] CLIA [id number] [address] [place] [address] [place] TYPE + SCREENon 10-27-2023 ABO A Normal [facility] Comment on above: Order Comment: Speci men Type: BLOOD SPECIMENOrdering Facility: [facility] Address: [address] [place] [address] Performed By: #### T SCR ####[facility] [id number] [place] [address] [place] HISTORICAL AB SCR STATUS Negative [facility] Comment on above: Order Comment: Speci men Type: BLOOD SPECIMENOrdering Facility: [facility] Address: [address] [place] [address] Performed By: #### T SCR ####[facility] [id number] [address] [place] Rh Nom (Bld) Positive [facility] [facility] Comment on above: Order Comment: Speci men Type: BLOOD SPECIMENOrdering Facility: [facility] Address: [address] [place] [address] Performed By: #### T SCR ####[facility] BLOOD BANKCLIA [id number] [address] TYPE AND SCREEN EXPIRATION 10/30/2023 23:59 [facility] Comment on above: Order Comment: Speci men Type: BLOOD SPECIMENOrdering Facility: [facility] Address: [address] [place] [address] Performed By: #### T SCR ####[facility] BLOOD BANKCLIA [id number] [address] OF [place] 25-hydroxyvitamin D3 [Mass/V ol]on 09-28-2023 Interpretation and review of laboratory results Normal [facility] The reference range interval was based on an analysis of samples from healthy adults and may not pertain to children from 0-18 years old. [facility] VITAMIN D 25 HYDROXYon 09-27 25-hydroxyvitamin D3 [Mass/Vol] 51.1 ng/mL 31.0 - 80.0 ng/mL [facility] Comment on above: Classification of 25 [place] Vitamin D status: Deficiency/Insufficiency: < or = 30 ng/ml. Sufficiency/Optimal Levels: 31-80 ng/mL Toxicity: > 100 ng/mL. Test performed by chemiluminescent immunoassay. UA DIP, URINE (POC)on 2023 BILIRUBIN UA (POCT) Negative Negative [facility] CLARITY UA (POCT) [facility] COLOR UA (POCT) Yellow [facility] GLUCOSE UA (POCT) Negative Negative mg/dL [facility] Hemoglobin Ql (U) Negative Negative [facility] KETONE UA (POCT) Negative Negative mg/dL [facility] LEUKOCYTES UA (POCT) Negative Negative [facility] NITR[facility] (POCT) Negative Negative [facility] PH UA (POCT) 6.0 4.5 - 8.0 [facility] Protein Ql (U) Negative Negative mg/dL [facility] SPECIFIC GRAVITY UA (POCT) 1.015 1.005 - 1.030 [facility] UROBILINOGEN UA (POCT) 0.2 E.U./dL Elo l E.U./dL [facility] Gram stain for investigation of transfusion reactionOrdered By: Marcos Puente on 06-01-2023 Microscopic observation Gram stain Nom (Unsp spec) [facility] Microscopic observation Gram stain Nom (Unsp spec) [facility] No Panel InformationOrdered By: Marcos Puente on 06-01-2023 Nasopharyngeal Culture No growth in 48 hours. [facility] Nasopharyngeal Culture No growth in 48 hours. [facility] Basophil percentageOrdered B y: Abdirahman Mensah on 03-17-2023 Basophil percentage < 0.9 mg/dL 0.55-1.02 [facility] No Panel InformationOrdered By: Abdirahman Mensah on 03-17-2023 Bedside Estimated GFR (eGFR) > 60.0000 mL/min >60 [facility] XR Foot - right AP and Later al and obliqueon 03-09-2023 IMPRESSION: Fracture fourth toe proximal phalanx Laboratory Chemist: [facility] Transcribe Date/Time: Mar 09 2023 3:07P Dictated by : ISELA CALHOUN MD This examination was interpreted and the report reviewed and electronically signed by: ISELA CALHOUN MD on Mar 09 2023 3:09PM [facility] DIVISION OF RADIOLOGY * * *Final Report* [...] No subluxation. DIVISION OF RADIOLOGY Provider, Clayton Alvarado - 03/09/2023 * * *Final Report* * [...] IMPRESSION IMPRESSION: Fracture fourth toe proximal phalanx Laboratory Chemist: [facility] Transcribe Date/Time: Mar 09 2023 3:07P Dictated by : ISELA CALHOUN MD This examination was interpreted and the report reviewed and electronically signed by: ISELA CALHOUN MD on Mar 09 2023 3:09PM EST [facility] XR Foot - right AP and Later al and obliqueOrdered By: Ccf Provider on 03-09-2023 [facility] TAYLOR SCREENING W Emy 03-06 [facility] Basic metabolic 2000 panelon 03-05-2023 Anion gap [Moles/Vol] 9 mmol/L 9 - 18 mmol/L [facility] Calcium [Mass/Vol] 9.0 mg/dL 8.5 - 10. 2 mg/dL [facility] Chloride [Moles/Vol] 104 mmol/L 97 - 10 5 mmol/L [facility] CO2 [Moles/Vol] 27 mmol/L 22 - 30 mmol/L [facility] Creatinine [Mass/Vol] 0.65 mg/dL 0.58 - 0.96 mg/dL [facility] Estimated Glomerular Filtration Rate 95 mL/min/1.73m >=60 mL/min/1.73 m [facility] Glucose [Mass/Vol] 75 mg/dL 74 - 99 mg/dL [facility] Potassium [Moles/Vol] 4.0 mmol/L 3.7 - 5.1 mmol/L [facility] Sodium [Moles/Vol] 140 mmol/L 136 - 144 mmol/L [facility] Urea nitrogen [Mass/Vol] 14 mg/dL 7 - 21 mg/dL [facility] CBC panel Auto (Bld)on 03-05 Erythrocyte distribution width (RBC) [Ratio] 13.3 % 11.5 - 15.0 % [facility] Hematocrit (Bld) [Volume fraction] 40.2 % 36.0 - 46.0 % [facility] Hemoglobin (Bld) [Mass/Vol] 13.1 g/dL 11.5 - 15.5 g/dL [facility] MCH (RBC) [Entitic mass] 30.5 pg 26.0 - 34.0 pg [facility] MCHC (RBC) [Mass/Vol] 32.6 g/dL 30.5 - 36.0 g/dL [facility] MCV (RBC) [Entitic vol] 93.5 fL 80.0 - 100.0 fL [facility] Nucleated RBC (Bld) [#/Vol] <0.01 k/uL [facility] Platelet mean volume (Bld) [Entitic vol] 10.4 fL 9.0 - 12.7 fL [facility] Platelets (Bld) [#/Vol] 236 10*3/uL 150 - 400 k/uL [facility] RBC (Bld) [#/Vol] 4.30 10*6/uL 3.90 - 5.2 0 m/uL [facility] WBC (Bld) [#/Vol] 4.15 10*3/uL 3.70 - 11.00 k/uL [facility] Urinalysis complete panel (U )on 03-05-2023 Bacteria LM.HPF (Urine sed) [#/Area] Negative Negative /HPF [facility] Bilirubin Ql (U) Negative Negative [facility] Clarity (Unsp spec) Clear Clear [facility] Color (U) Yellow Yellow [facility] Epithelial cells LM.HPF (Urine sed) [#/Area] None Seen [facility] Glucose Test strip (U) [Mass/Vol] Negative Negative [facility] Hemoglobin Ql (U) Negative Negative [facility] Hyaline casts (Urine sed) [#/Area] 0 /[LPF] 0 /LPF [facility] Ketones Ql (U) Negative Negative [facility] Leukocyte esterase Test strip Ql (U) Negative Negative [facility] Nitrite Ql (U) Negative Negative [facility] pH (U) 6.5 [pH] <8.5 [facility] Protein (U) [Mass/Vol] Negative Negative Cl [facility] RBC LM.HPF (Urine sed) [#/Area] 0-2 /HPF 0-2 /HPF [facility] Specific gravity (U) [Rel density] 1.021 1.005 - 1.030 [facility] Urobilinogen Ql (U) 0.2 EU/dL 0.2-1.0 EU/dL [facility] WBC LM.HPF (Urine sed) [#/Area] 0-5 /HPF 0-5 /HPF [facility] XR Foot - right AP and Later al and obliqueon 03-05-2023 Radiology Study observation (narrative) [facility] XR Lumbar spine 3 Viewson IMPRESSION: DEGENERATIVE CHANGE IN ALIGNMENT ABNORMALITIES DESCRIBED. MILD PROGRESSION FROM THE PRIOR STUDY Laboratory Chemist: JESS Transcribe Date/Time: Sep 02 2022 5:17P Dictated by : DIONE DAVIS MD This examination was interpreted and the report reviewed and electronically signed by: DIONE DAVIS MD on Sep 02 2022 5:18PM [facility] DIVISION OF RADIOLOGY * * *Final Report* [...] joints are unremarkable DIVISION OF RADIOLOGY Provider, Clayton Avelar [facility] - 09/02/2022 * * *Final Report* * [...] DESCRIBED. MILD PROGRESSION FROM THE PRIOR STUDY Laboratory Chemist: JESS Transcribe Date/Time: Sep 02 2022 5:17P Dictated by : DIONE DAVIS MD This examination was interpreted and the report reviewed and electronically signed by: DIONE DAVIS MD on Sep 02 2022 5:18PM EST [facility] XR Lumbar spine 3 ViewsOrder ed By: Ccf Provider on 09-02-2022 [facility] XR Lumbar spine 3 Viewson Radiology Study observation (narrative) [facility] STREP A MOLECULAR (POC)on Procedural Control Valid [facility] Strep A (POCT) Negative Negative [facility] UA DIP, URINE (POC)on 2021 BILIRUBIN UA (POCT) Negative Negative [facility] CLARITY UA (POCT) [facility] COLOR UA (POCT) Light yellow [facility] GLUCOSE UA (POCT) Negative Negative mg/dL [facility] HEMOGLOBIN/BLOOD UA (POCT) Negative Negative [facility] KETONE UA (POCT) Negative Negative mg/dL [facility] LEUKOCYTES UA (POCT) Negative Negative [facility] NITRITE UA (POCT) Negative Negative [facility] PH UA (POCT) 6.5 4.5 - 8.0 [facility] Protein Ql (U) Negative Negative mg/dL [facility] SPECIFIC GRAVITY UA (POCT) 1.015 1.005 - 1.030 [facility] UROBILINOGEN UA (POCT) 0.2 E.U./dL Elo l E.U./dL [facility] TAYLOR SCREENING W TOMOon 01-16 [facility] XR Chest PA and Lateralon IMPRESSION: No acute radiographic abnormality. Laboratory Chemist: JESS Transcribe Date/Time: Jun 19 2021 11:45A Dictated by : DIONE DAVIS MD This examination was interpreted and the report reviewed and electronically signed by: DIONE DAVIS MD on Jun 19 2021 11:45AM [facility] DIVISION OF RADIOLOGY * * *Final Report* [...] soft tissues: Unremarkable. DIVISION OF RADIOLOGY Provider, [facility] Rosio [facility] - 06/19/2021 * * *Final Report* * [...] Unremarkable. IMPRESSION IMPRESSION: No acute radiographic abnormality. Laboratory Chemist: JESS Transcribe Date/Time: Jun 19 2021 11:45A Dictated by : DIONE DAVIS MD This examination was interpreted and the report reviewed and electronically signed by: DIONE DAVIS MD on Jun 19 2021 11:45AM EST [facility] Radiology Study observation (narrative) [facility] XR Chest PA and LateralOrder ed By: Ccf Provider on 06-19-2021 [facility] XR Shoulder - right 3 ViewsO rdered By: Ccf Provider on 06-18-2021 Interpretation and review of laboratory results Abnormal [facility] Radiology Result ACTIONABLE Abnormal [facility] Comment on above: This report contains an incidental or actionable finding. This is a new finding that is separate from the reason your provider ordered the imaging test. Because of this incidental or actionable finding, you may need another imaging test to evaluate it. Please contact your provider for the next steps. [facility] XR Shoulder - right 3 Viewso [...] be communicated with the ordering provider via [employer] staff message or phone message by [employer] within 2 business days of report finalization. Algorithms for management of incidental imaging findings can be found on the [facility] Intranet Sharepoint site at: [email or web address] [email or web address] [email or web address]/Forms/ [email or web address] Laboratory Chemist: [facility] Transcribe Date/Time: Jun 18 2021 12:35P Dictated by : PIOTR GREENFIELD MD This examination was interpreted and the report reviewed and electronically signed by: PIOTR GREENFIELD MD on Jun 18 2021 12:36PM EST DIVISION OF RADIOLOGY * * *Final [...] right midlung zone. DIVISION OF RADIOLOGY Provider, [facility] * * *Final Report* * [...] be communicated with the ordering provider via [employer] staff message or phone message by [facility] [employer] within 2 business days of report finalization. Algorithms for management of incidental imaging findings can be found on the [facility] Intranet Sharepoint site at: [email or web address] [email or web address] ngs%[email or web address]/Forms/ [email or web address] Laboratory Chemist: JESS Transcribe Date/Time: Jun 18 2021 12:35P Dictated by : PIOTR GREENFIELD MD This examination was interpreted and the report reviewed and electronically signed by: PIOTR GREENFIELD MD on Jun 18 2021 12:36PM EST [facility] Radiology Study observation (narrative) [facility] No Panel Informationon 03-18 Radiology Study observation (narrative) [facility] XR Lumbar spine 3 Viewson IMPRESSION: Spondylosis and curvature of the lumbar spine. Laboratory Chemist: JESS Transcribe Date/Time: Mar 18 2021 4:46P Dictated [...] unremarkable in appearance. DIVISION OF RADIOLOGY Provider, [facility] Rosio [facility] - 03/18/2021 * * *Final Report* * [...] Spondylosis and curvature of the lumbar spine. Laboratory Chemist: JESS Transcribe Date/Time: Mar 18 2021 4:46P Dictated by : ALEJANDRO CANO MD This examination was interpreted and the report reviewed and electronically signed by: ALEJANDRO CANO MD on Mar 18 2021 4:47PM EST [facility] XR Lumbar spine 3 ViewsOrder ed By: Ccf Provider on 03-18-2021 [facility] XR Sacroiliac Joint Viewson 03-18-2021 IMPRESSION: No radiographic evidence of sacroiliitis Laboratory Chemist: [facility] Transcribe Date/Time: Mar 18 2021 4:50P [...] gas and stool. DIVISION OF RADIOLOGY Provider, [facility] - 03/18/2021 * * *Final Report* * [...] IMPRESSION IMPRESSION: No radiographic evidence of sacroiliitis Laboratory Chemist: JESS Transcribe Date/Time: Mar 18 2021 4:50P Dictated by : PIOTR GREENFIELD MD This examination was interpreted and the report reviewed and electronically signed by: PIOTR GREENFIELD MD on Mar 18 2021 4:51PM [facility] Vital Signs Date Time Vital Sign Value Performing Clinician Facility 02-02-2025 09:10-0400 Body height 152.4 cm CHRISTINA OLDER [employer] Work Phone: [facility] 02-02-2025 09:10-0400 Body mass index (BMI) [Ratio] 20.5 kg/m2 [employer]RISTINA [employer] Work Phone: [facility] 02-02-2025 09:10-0400 Body temperature 97.9 [degF] CHRISTINA [employer] Work Phone: [facility] 02-02-2025 09:10-0400 Body weight 47.62 kg CHRISTINA [employer] Work Phone: [facility] 02-02-2025 09:10-0400 Diastolic blood pressure 85 mm[Hg] CHRISTINA OLDER [employer] Work Phone: [facility] 02-02-2025 09:10-0400 Heart rate 71 /min CHRISTINA [employer] Work Phone: [facility] 02-02-2025 09:10-0400 SaO2% (BldA) [Mass fraction] 98 % CHRISTINA [employer] Work Phone: [facility] 02-02-2025 09:10-0400 Systolic blood pressure 154 mm[Hg] CHRISTINA O[employer]ER [employer] Work Phone: [facility] 01-25-2025 11:27-0400 Diastolic blood pressure 82 mm[Hg] CHRISTINA O[employer]ER [employer] Work Phone: [facility] 01-25-2025 11:27-0400 Heart rate 72 /min CHRISTINA [employer] Work Phone: [facility] 01-25-2025 11:27-0400 Respiratory rate 18 /min CHRISTINA [employer] Work Phone: [facility] 01-25-2025 11:27-0400 SaO2% (BldA) [Mass fraction] 99 % [employer]RISTINA [employer] Work Phone: [facility] 01-25-2025 11:27-0400 Systolic blood pressure 150 mm[Hg] CHRISTINA [employer] Work Phone: [facility] 01-04-2025 09:29-0400 Diastolic blood pressure 71 mm[Hg] Christina Older 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 Work Phone: [facility] Comment on above: BP Jeffry 01-04-2025 09:29-0400 Systolic blood pressure 121 mm[Hg] Chirstina Older 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 Work Phone: [facility] Comment on above: BP [facility] 01-04-2025 08:49-0400 Body height 155.4 cm Christina Older 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 Work Phone: [facility] 01-04-2025 08:49-0400 Body mass index (BMI) [Ratio] 19.35 kg/m2 Christina Older 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 Work Phone: [facility] 01-04-2025 08:49-0400 Body weight 46.72 kg Christina Older 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 Work Phone: [facility] 01-04-2025 08:49-0400 Heart rate 80 /min Christina Older 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 Work Phone: [facility] 01-04-2025 08:49-0400 Respiratory rate 16 /min Christina Older 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 Work Phone: [facility] 01-04-2025 08:49-0400 SaO2% (BldA) [Mass fraction] 96 % Christina Older 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 Work Phone: [facility] 12-29-2024 13:10-0400 Body height 152.4 cm CHRISTINA [employer] Work Phone: [facility] 12-29-2024 13:10-0400 Body mass index (BMI) [Ratio] 20.4 kg/m2 [employer]INA [employer] Work Phone: [facility] 12-29-2024 13:10-0400 Body temperature 98.4 [degF] CHRISTINA [employer] Work Phone: [facility] 12-29-2024 13:10-0400 Body weight 47.4 kg CHRISTINA [employer] Work Phone: 3(216)946-149459 [place] [address] 12-29-2024 13:10-0400 Diastolic blood pressure 86 mm[Hg] CHRISTINA [employer] Work Phone: 6(564)590-854359 [place] [address] 12-29-2024 13:10-0400 Heart rate 69 /min [employer]STINA [employer] Work Phone: 9(335)737-335159 [place] [address] 12-29-2024 13:10-0400 Respiratory rate 14 /min CHRISTINA [employer] Work Phone: [facility] 12-29-2024 13:10-0400 SaO2% (BldA) [Mass fraction] 98 % CHRISTINA O[employer]ER [employer] Work Phone: [facility] 12-29-2024 13:10-0400 Systolic blood pressure 145 mm[Hg] CHRISTINA OLDER [employer] Work Phone: [facility] 12-15-2024 08:31-0400 Body height 152.4 cm CHRISTINA O[employer] Work Phone: [facility] 12-15-2024 08:31-0400 Body mass index (BMI) [Ratio] 20.2 kg/m2 [employer]RISTINA [employer] Work Phone: [facility] 12-15-2024 08:31-0400 Body temperature 97.3 [degF] CHRISTINA O[employer]ER [employer] Work Phone: [facility] 12-15-2024 08:31-0400 Body weight 46.94 kg CHRISTINA O[employer]ER [employer] Work Phone: [facility] 12-15-2024 08:31-0400 Diastolic blood pressure 84 mm[Hg] CHRISTINA OLDER [employer] Work Phone: [facility] 12-15-2024 08:31-0400 Heart rate 76 /min CHRISTINA O[employer]ER [employer] Work Phone: [facility] 12-15-2024 08:31-0400 Respiratory rate 16 /min CHRISTINA O[employer]ER [employer] Work Phone: [facility] 12-15-2024 08:31-0400 SaO2% (BldA) [Mass fraction] 96 % CHRISTINA OLDER [employer] Work Phone: [facility] 12-15-2024 08:31-0400 Systolic blood pressure 151 mm[Hg] CHRISTINA O[employer] Work Phone: 1(446)087-966459 [place] [address] 11-08-2024 15:10-0400 Body temperature 97.6 [degF] CHRISTINA [employer] Work Phone: 7(640)427-504159 [place] [address] 11-08-2024 15:10-0400 Diastolic blood pressure 70 mm[Hg] CHRISTINA O[employer]ER [employer] Work Phone: 1(929)483-548559 [place] [address] 11-08-2024 15:10-0400 Heart rate 71 /min CH[employer]STINA [employer] Work Phone: 0(547)827-923459 [place] [address] 11-08-2024 15:10-0400 Respiratory rate 16 /min CHRISTINA O[employer] Work Phone: [facility] 11-08-2024 15:10-0400 SaO2% (BldA) [Mass fraction] 100 % CHRISTINA O[employer]ER [employer] Work Phone: [facility] 11-08-2024 15:10-0400 Systolic blood pressure 124 mm[Hg] CHRISTINA OLDER [employer] Work Phone: [facility] 11-08-2024 13:42-0400 Body height 152.4 cm CHRISTINA [employer] Work Phone: 5(383)219-409659 [place] [address] 11-08-2024 13:42-0400 Body mass index (BMI) [Ratio] 20.5 kg/m2 CHRISTINA [employer] Work Phone: [facility] 11-08-2024 13:42-0400 Body weight 47.6 kg CHRISTINA O[employer] Work Phone: [facility] 11-08-2024 08:20-0400 Body mass index (BMI) [Ratio] 19.65 kg/m2 Dung Holman 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 Work Phone: [facility] 11-08-2024 08:20-0400 Body weight 47.17 kg Dung Holman 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 Work Phone: [facility] 11-08-2024 08:20-0400 Diastolic blood pressure 84 mm[Hg] Dung Holman 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 Work Phone: [facility] 11-08-2024 08:20-0400 Heart rate 90 /min Dung Holman 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 Work Phone: [facility] 11-08-2024 08:20-0400 Systolic blood pressure 145 mm[Hg] Dung Holman 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 Work Phone: [facility] 10-24-2024 08:35-0400 Body height 152.4 cm CHRISTINA O[employer] Work Phone: [facility] 10-24-2024 08:35-0400 Body mass index (BMI) [Ratio] 20.6 kg/m2 CHRISTINA O[employer] Work Phone: [facility] 10-24-2024 08:35-0400 Body weight 47.85 kg CHRISTINA OLDER [employer] Work Phone: [facility] 10-24-2024 08:35-0400 Diastolic blood pressure 84 mm[Hg] CHRISTINA OLDER [employer]ERSON [employer] Work Phone: [facility] 10-24-2024 08:35-0400 Heart rate 70 /min [employer]STINA [employer] Work Phone: 3(756)767-319359 [place] [address] 10-24-2024 08:35-0400 Respiratory rate 16 /min CHRISTINA OLDER [employer] Work Phone: [facility] 10-24-2024 08:35-0400 SaO2% (BldA) [Mass fraction] 97 % CHRISTINA OLDER [employer] Work Phone: [facility] 10-24-2024 08:35-0400 Systolic blood pressure 153 mm[Hg] CHRISTINA O[employer]ER [employer] Work Phone: 5(782)630-345359 [place] [address] 09-13-2024 08:32-0400 Body height 152.4 cm CHRISTINA [employer] Work Phone: 4(571)244-710559 [place] [address] 09-13-2024 08:32-0400 Body mass index (BMI) [Ratio] 20.9 kg/m2 [employer]INA [employer] Work Phone: 4(927)068-753359 [place] [address] 09-13-2024 08:32-0400 Body weight 48.53 kg CHRISTINA [employer] Work Phone: 2(289)720-021359 [place] [address] 09-13-2024 08:32-0400 Diastolic blood pressure 85 mm[Hg] CHRISTINA [employer] Work Phone: 1(601)670-671259 [place] [address] 09-13-2024 08:32-0400 Heart rate 75 /min CHRISTINA [employer] Work Phone: 4(053)683-925659 [place] [address] 09-13-2024 08:32-0400 Respiratory rate 16 /min CHRISTINA O[employer] Work Phone: 0(171)[phone] [place] [address] 09-13-2024 08:32-0400 SaO2% (BldA) [Mass fraction] 96 % CHRISTINA O[employer] Work Phone: 9(980)761-545659 [place] [address] 09-13-2024 08:32-0400 Systolic blood pressure 136 mm[Hg] CHRISTINA OLDER [employer] Work Phone: 3(650)376-236359 [place] [address] 07-04-2024 13:06-0500 Body mass index (BMI) [Ratio] 20.7 kg/m2 CHRISTINA [employer] Work Phone: 7(862)276-570159 [place] [address] 07-04-2024 13:06-0500 Body weight 48.19 kg CHRISTINA OLDER [employer] Work Phone: [facility] 07-04-2024 13:06-0500 Diastolic blood pressure 90 mm[Hg] CHRISTINA OLDER SALESPERSON [employer] Work Phone: [facility] 07-04-2024 13:06-0500 Respiratory rate 18 /min CHRISTINA OLDER [employer]ESPERSON [employer] Work Phone: [facility] 07-04-2024 13:06-0500 SaO2% (BldA) [Mass fraction] 96 % CHRISTINA OLDER [employer]ESPERSON [employer] Work Phone: [facility] 07-04-2024 13:06-0500 Systolic blood pressure 142 mm[Hg] CHRISTINA OLDER SALESPERSON [employer] Work Phone: [facility] 03-31-2024 07:16-0500 Body mass index (BMI) [Ratio] 19.65 kg/m2 Christina Older 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 Work Phone: [facility] 03-31-2024 07:16-0500 Body weight 47.17 kg Christina Older 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 Work Phone: [facility] 03-31-2024 07:16-0500 Respiratory rate 16 /min Christina Older 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 Work Phone: [facility] 02-22-2024 13:41-0400 Diastolic blood pressure 72 mm[Hg] Michael Manzanares MD Work Phone: [facility] 02-22-2024 13:41-0400 Systolic blood pressure 132 mm[Hg] Michael Manzanares MD Work Phone: [facility] 02-05-2024 11:36-0400 Body height 154.9 cm Michael Manzanares MD Work Phone: [facility] 02-05-2024 11:36-0400 Body mass index (BMI) [Ratio] 18.89 kg/m2 Michael Manzanares MD Work Phone: [facility] 02-05-2024 11:36-0400 Body weight 45.36 kg Michael Manzanares MD Work Phone: [facility] 02-05-2024 11:36-0400 Diastolic blood pressure 82 mm[Hg] Michael Manzanares MD Work Phone: [facility] 02-05-2024 11:36-0400 Systolic blood pressure 130 mm[Hg] Michael Manzanares MD Work Phone: [facility] 12-02-2023 10:25-0400 Diastolic blood pressure 84 mm[Hg] Michael Manzanares MD Work Phone: [facility] 12-02-2023 10:25-0400 Heart rate 87 /min Michael Manzanares MD Work Phone: [facility] 12-02-2023 10:25-0400 Systolic blood pressure 134 mm[Hg] Michael Manzanares MD Work Phone: [facility] 10-30-2023 09:53-0400 Diastolic blood pressure 70 mm[Hg] Uro Pond Work Phone: [facility] 10-30-2023 09:53-0400 Systolic blood pressure 128 mm[Hg] Uro Pond Work Phone: [facility] 10-16-2023 13:03-0400 Body height 153.7 cm Pac 1 Work Phone: [facility] 10-16-2023 13:03-0400 Body mass index (BMI) [Ratio] 19.59 kg/m2 Pac 1 Work Phone: [facility] 10-16-2023 13:03-0400 Body temperature 98.4 [degF] Pac 1 Work Phone: [facility] 10-16-2023 13:03-0400 Body weight 46.27 kg Pac 1 Work Phone: [facility] 10-16-2023 13:03-0400 Diastolic blood pressure 88 mm[Hg] Pacc 1 Work Phone: [facility] 10-16-2023 13:03-0400 Heart rate 85 /min Pacc 1 Work Phone: [facility] 10-16-2023 13:03-0400 Respiratory rate 14 /min Pacc 1 Work Phone: [facility] 10-16-2023 13:03-0400 SaO2% (BldA) [Mass fraction] 98 % Pacc 1 Work Phone: [facility] 10-16-2023 13:03-0400 Systolic blood pressure 136 mm[Hg] Pacc 1 Work Phone: [facility] 09-28-2023 07:29-0400 Body height 154.9 cm Christina Older 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 Work Phone: [facility] 09-28-2023 07:29-0400 Body mass index (BMI) [Ratio] 19.46 kg/m2 Christina Older 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 Work Phone: [facility] 09-28-2023 07:29-0400 Body weight 46.72 kg Christina Older 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 Work Phone: [facility] 09-28-2023 07:29-0400 Diastolic blood pressure 72 mm[Hg] Christina Older 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 Work Phone: [facility] 09-28-2023 07:29-0400 Heart rate 88 /min Christina Older 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 Work Phone: [facility] 09-28-2023 07:29-0400 Respiratory rate 12 /min Christina Older 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 Work Phone: [facility] 09-28-2023 07:29-0400 SaO2% (BldA) [Mass fraction] 95 % Christina Older 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 Work Phone: [facility] 09-28-2023 07:29-0400 Systolic blood pressure 130 mm[Hg] Christina Older 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 Work Phone: [facility] 08-06-2023 14:32-0400 Body height 152.4 cm SALESPERSON FURNITURE-C CHRISTINA OLDER Work Phone: [facility] 08-06-2023 14:32-0400 Body mass index (BMI) [Ratio] 21.2 kg/m2 SALESPERSON FURNITURE-C CHRISTINA OLDER Work Phone: [facility] 08-06-2023 14:32-0400 Body weight 49.44 kg SALESPERSON FURNITURE-C CHRISTINA OLDER Work Phone: [facility] 07-29-2023 08:07-0400 Body weight 47.6 kg Michael Manzanares MD Work Phone: [facility] 07-29-2023 08:07-0400 Diastolic blood pressure 78 mm[Hg] Michael Manzanares MD Work Phone: [facility] 07-29-2023 08:07-0400 Heart rate 87 /min Michael Manzanares MD Work Phone: [facility] 07-29-2023 08:07-0400 Systolic blood pressure 131 mm[Hg] Michael Manzanares MD Work Phone: [facility] 04-16-2023 09:24-0500 Body weight 46.54 kg Marcelina Madrigal MD Work Phone: [facility] 04-16-2023 09:24-0500 Diastolic blood pressure 80 mm[Hg] Marcelina Madrigal MD Work Phone: [facility] 04-16-2023 09:24-0500 Systolic blood pressure 138 mm[Hg] Marcelina Madrigal MD Work Phone: [facility] 03-05-2023 07:56-0400 Body weight 47.17 kg Christina Older 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 Work Phone: [facility] 03-05-2023 07:56-0400 Diastolic blood pressure 74 mm[Hg] Christina Older 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 Work Phone: [facility] 03-05-2023 07:56-0400 Heart rate 64 /min Christina Older 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 Work Phone: [facility] 03-05-2023 07:56-0400 Respiratory rate 16 /min Christina Older 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 Work Phone: [facility] 03-05-2023 07:56-0400 SaO2% (BldA) [Mass fraction] 97 % Christina Older 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 Work Phone: [facility] 03-05-2023 07:56-0400 Systolic blood pressure 116 mm[Hg] Christina Older 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 Work Phone: [facility] 07-11-2022 13:00-0500 Body temperature 98.1 [degF] Marlen Madrigal 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 Work Phone: [facility] 07-11-2022 13:00-0500 Body weight 46.09 kg Marlen Madrigal 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 Work Phone: [facility] 07-11-2022 13:00-0500 Diastolic blood pressure 88 mm[Hg] Marlen Madrigal 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 Work Phone: [facility] 07-11-2022 13:00-0500 Heart rate 97 /min Marlen Madrigal 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 Work Phone: [facility] 07-11-2022 13:00-0500 Respiratory rate 18 /min Marlen Madrigal 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 Work Phone: [facility] 07-11-2022 13:00-0500 SaO2% (BldA) [Mass fraction] 97 % Marlen Madrigal 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 Work Phone: [facility] 07-11-2022 13:00-0500 Systolic blood pressure 128 mm[Hg] Marlen Madrigal 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 Work Phone: [facility] 04-28-2022 10:47-0500 Body temperature 99 [degF] Jerrell Sarmiento MD Work Phone: [facility] 04-28-2022 10:47-0500 Body weight 44.63 kg Jerrell Sarmiento MD Work Phone: [facility] 04-28-2022 10:47-0500 Diastolic blood pressure 80 mm[Hg] Jerrell Sarmiento MD Work Phone: [facility] 04-28-2022 10:47-0500 Heart rate 82 /min Jerrell Sarmiento MD Work Phone: [facility] 04-28-2022 10:47-0500 Respiratory rate 16 /min Jerrell Sarmiento MD Work Phone: [facility] 04-28-2022 10:47-0500 SaO2% (BldA) [Mass fraction] 96 % Jerrell Sarmiento MD Work Phone: [facility] 04-28-2022 10:47-0500 Systolic blood pressure 122 mm[Hg] Jerrell Sarmiento MD Work Phone: [facility] 04-24-2022 09:04-0500 Body height 152.4 cm No Primary Care Physician [facility] 04-23-2022 10:24-0500 Body temperature 98 [degF] No Primary Care Physician [facility] 04-23-2022 10:24-0500 Diastolic blood pressure 64 mm[Hg] No Primary Care Physician [facility] 04-23-2022 10:24-0500 Heart rate 93 /min No Primary Care Physician [facility] 04-23-2022 10:24-0500 Respiratory rate 18 /min No Primary Care Physician [facility] 04-23-2022 10:24-0500 SaO2% (BldA) [Mass fraction] 94 % No Primary Care Physician [facility] 04-23-2022 10:24-0500 Systolic blood pressure 130 mm[Hg] No Primary Care Physician [facility] 04-23-2022 06:18-0500 Body height 152.4 cm No Primary Care Physician [facility] Work Phone: 04-23-2022 06:18-0500 Body mass index (BMI) [Ratio] 19.3 kg/m2 No Primary Care Physician [facility] 04-23-2022 06:18-0500 Body weight 44.9 kg No Primary Care Physician [facility] 04-20-2022 11:11-0500 Diastolic blood pressure 80 mm[Hg] No Primary Care Physician [facility] 04-20-2022 11:11-0500 Heart rate 70 /min No Primary Care Physician [facility] 04-20-2022 11:11-0500 Respiratory rate 16 /min No Primary Care Physician [facility] 04-20-2022 11:11-0500 SaO2% (BldA) [Mass fraction] 98 % No Primary Care Physician [facility] 04-20-2022 11:11-0500 Systolic blood pressure 130 mm[Hg] No Primary Care Physician [facility] 04-20-2022 09:06-0500 Body height 154.94 cm No Primary Care Physician [facility] Work Phone: 04-20-2022 09:06-0500 Body mass index (BMI) [Ratio] 20 kg/m2 No Primary Care Physician [facility] 04-20-2022 09:06-0500 Body temperature 97 [degF] No Primary Care Physician [facility] 04-20-2022 09:06-0500 Body weight 48 kg No Primary Care Physician [facility] 02-06-2022 09:24-0400 Body height 152.4 cm Tanya Dobson APRN.SUSPENDER MAKER Work Phone: [facility] 02-06-2022 09:24-0400 Body weight 46.27 kg Tanya Dobson APRN.SUSPENDER MAKER Work Phone: [facility] 02-06-2022 09:24-0400 Diastolic blood pressure 82 mm[Hg] Tanya Dobson APRN.SUSPENDER MAKER Work Phone: [facility] 02-06-2022 09:24-0400 Respiratory rate 14 /min Tanya Dobson APRN.SUSPENDER MAKER Work Phone: [facility] 02-06-2022 09:24-0400 Systolic blood pressure 126 mm[Hg] Tanya Dobson APRN.SUSPENDER MAKER Work Phone: [facility] 12-19-2021 10:08-0400 Body height 154.94 cm No Primary Care Physician [facility] Work Phone: [phone] Body mass index (BMI) [Ratio] 19.3 kg/m2 No Primary Care Physician [facility] Work Phone: [phone] Body weight 46.43 kg No Primary Care Physician [facility] Work Phone: Encounters Encounter Date Encounter Type Care Provider Facility Start: 02-17-2025 [facility] Facility:[facility] Start: 02-09-2025 [facility] Facility:[facility] Start: 02-06-2025 [facility] Facility:[facility] Start: 02-02-2025 End: 02-02-2025 Patient encounter procedure Melba MCGILL -[facility] Work Phone: Start: 02-02-2025 End: 02-02-2025 ambulatory [facility] Work Phone: -[facility] Start: 01-25-2025 Patient encounter procedure Melba MCGILL -[facility] Work Phone: Start: 01-25-2025 End: 01-25-2025 [facility] Facility:[facility] Start: 01-17-2025 End: 01-18-2025 Telephone encounter Murphy Cuevas MD Work Phone: Internal Medicine [place] Comment on above: Orders Start: 01-05-2025 End: 01-05-2025 [facility] Facility:[facility] Start: 01-04-2025 End: 01-04-2025 [facility] Facility:[facility] Start: 01-04-2025 End: 01-04-2025 Patient encounter procedure Christina [facility] MILAGROS Work Phone: Internal Medicine [place] Comment on above: Medicare annual well ness visit, subsequent (Primary Dx); Montez's esophagus without dysplasia; Osteopenia, unspecified location; Medication management; Screening for depression; Encounter for screening examination for other mental health and behavioral disorders; Encounter for immunization; Lipid screening Start: 01-02-2025 End: 01-02-2025 ambulatory Tanya Temo [facility] Start: 01-02-2025 End: 01-02-2025 Patient encounter procedure Tanya Yulibritnialonzo DOMINICK [facility] Comment on above: Population Health Na vigation Outreach ([facility]/Workbench/ACO ) Start: 12-29-2024 End: 12-29-2024 Patient encounter procedure Melba Pinon SALESPERSON FURNITURE-C -[facility] Work Phone: Start: 12-29-2024 End: 12-29-2024 ambulatory CHRISTINA OLDER SALESPERSON FURNITURE-C Work Phone: -[facility] Start: 12-16-2024 End: 12-16-2024 ambulatory CHRISTINA OLDER SALESPERSON FURNITURE-C Work Phone: -Laboratory Start: 12-16-2024 End: 12-16-2024 Patient encounter procedure Melba Pinon SALESPERSON FURNITURE-C -Laboratory Work Phone: Start: 12-15-2024 End: 12-15-2024 Patient encounter procedure Melba Pinon SALESPERSON FURNITURE-C -[facility] Work Phone: Start: 12-15-2024 End: 12-16-2024 ambulatory CHRISTINA OLDER SALESPERSON FURNITURE-C Work Phone: -[facility] Start: 12-03-2024 End: 12-03-2024 ambulatory CHRISTINA OLDER SALESPERSON FURNITURE-C Work Phone: -Laboratory Start: 12-03-2024 End: 12-03-2024 Patient encounter procedure Melba Pinon SALESPERSON FURNITURE-C -Laboratory Work Phone: Start: 12-03-2024 End: 12-03-2024 ambulatory Melba Pinon Facility:[facility] Start: 11-08-2024 Non-patient / Non-visit Dhiraj Dowd nd, DO -[facility] Start: 11-08-2024 End: 11-08-2024 Admission to same day surgery center Dhiraj King DO -Endoscopy Work Phone: Start: 11-08-2024 End: 11-08-2024 ambulatory CHRISTINA OLDER SALESPERSON FURNITURE-C Work Phone: [facility] Work Phone: Start: 11-08-2024 End: 11-08-2024 Patient encounter procedure Dung Holman LEGAL EXECUTIVEJean-PierreSUSPENDER MAKER Work Phone: URO/Gynecology Comment on above: Post-operative state (Primary Dx); JEMIMA (stress urinary incontinence, female); Vaginal atrophy; Vaginal adhesions, postprocedural Start: 11-08-2024 End: 11-08-2024 ambulatory DUNG HOLMAN Facility:[facility] Start: 10-24-2024 End: 10-24-2024 Patient encounter procedure Melba WORLEYC -[facility] Work Phone: Start: 10-24-2024 End: 10-24-2024 ambulatory CHRISTINA OLDER SALESPERSON FURNITURE-C Work Phone: [facility] Work Phone: Start: 10-14-2024 End: 10-14-2024 ambulatory CHRISTINA OLDER SALESPERSON FURNITURE-C Work Phone: [facility] Work Phone: Start: 10-14-2024 End: 10-14-2024 Patient encounter procedure Melba WORLEYC -Cat Scan [facility] Work Phone: Start: 10-14-2024 End: 10-14-2024 ambulatory Melba Pinon Facility:[facility] Start: 09-13-2024 End: 09-13-2024 Patient encounter procedure Melba WORLEYC -[facility] Work Phone: Start: 09-13-2024 End: 09-13-2024 ambulatory CHRISTINA OLDER Facility:[facility] Start: 07-04-2024 End: 07-04-2024 Patient encounter procedure Melba Pinon NP-C -[facility] Work Phone: Start: 07-04-2024 End: 07-04-2024 ambulatory CHRISTINA OLDER Facility:[facility] Start: 06-01-2024 ambulatory [facility] Facility:[facility] Start: 06-01-2024 End: 06-01-2024 ambulatory [facility] Facility:[facility] Start: 05-03-2024 End: 05-03-2024 ambulatory [facility] Facility:[facility] Start: 04-12-2024 Encounter for preprocedural laboratory examination [facility] Start: 03-31-2024 End: 03-31-2024 ambulatory CHRISTINAZeke AMRTIN Facility:[facility] Start: 03-31-2024 End: 03-31-2024 ambulatory [facility] Facility:[facility] Start: 03-31-2024 End: 03-31-2024 Patient encounter procedure Christina Martin 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 Work Phone: Internal [facility] [place] Comment on above: Elevated blood press ure reading (Primary Dx); Genitourinary syndrome of menopause Start: 03-23-2024 End: 03-23-2024 Telephone encounter Michael Manzanares MD Work Phone: URO/Gynecology Comment on above: Care Coordination (B ulkamid Follow-Up) Start: 03-21-2024 End: 03-21-2024 ambulatory [facility] Facility:[facility] Start: 03-08-2024 End: 03-08-2024 ambulatory [facility] Facility:[facility] Start: 03-08-2024 End: 03-08-2024 Subsequent hospital visit by physician Screen Mammo [facility] Mammogram Comment on above: Encounter for screen ing mammogram for breast cancer [Z12.31] Start: 02-22-2024 End: 02-22-2024 ambulatory MICHAEL MANZANARES Facility:[facility] Start: 02-22-2024 End: 02-22-2024 Patient encounter procedure Michael Manzanares MD Work Phone: URO/Gynecology Comment on above: Intrinsic sphincter deficiency (ISD) (Primary Dx); JEMIMA (stress urinary incontinence, female) Start: 02-05-2024 End: 02-05-2024 Telephone encounter Michael Manzanares MD Work Phone: URO/Gynecology Comment on above: Care Coordination (B ulkamid) Start: 02-05-2024 End: 02-05-2024 ambulatory [facility] Facility:[facility] Start: 02-05-2024 End: 02-05-2024 Patient encounter procedure Michael Manzanares MD Work Phone: URO/Gynecology Comment on above: JEMIMA (stress urinary incontinence, female) (Primary Dx); Cystocele, midline; Rectocele Start: 01-28-2024 End: 01-28-2024 Refill Murphy Cuevas MD Work Phone: Internal Medicine [place] Comment on above: Refill Request Start: 12-02-2023 End: 12-02-2023 Patient encounter procedure Michael Manzanares MD Work Phone: TALLOW REFINER UROL GARY [facility]ER Comment on above: Mixed stress and urg e urinary incontinence (Primary Dx); Uterovaginal prolapse, incomplete; Cystocele, midline Start: 10-30-2023 End: 10-30-2023 Patient encounter procedure Uro Airline Mechanic Nurse Calderon Dotson Work Phone: URO/Gynecology Comment on above: Encounter for urine test (Primary Dx) Start: 10-30-2023 End: 10-30-2023 Patient encounter status Uro Nila Work Phone: [facility] Start: 10-27-2023 End: 10-27-2023 [facility] Facility:[facility] Start: 10-16-2023 End: 10-16-2023 PAT Pac [place] 1 Work Phone: Pre Anesthesia Comment on above: Pre-operative examin ation (Primary Dx); Chronic left-sided low back pain without sciatica; Uterovaginal prolapse, incomplete; Cystocele, midline; Rectocele; Osteoporosis, unspecified osteoporosis type, unspecified pathological fracture presence; Solitary pulmonary nodule; Hx of seizure disorder Start: 10-16-2023 End: 10-16-2023 Preprocedural examination done [facility] Donaldo 1 Work Phone: [facility] Work Phone: Start: 10-13-2023 End: 10-13-2023 ambulatory Uro Airline Mechanic Nurse Vega Work Phone: TALLOW REFINER UROL [facility] Comment on above: Educational circumst ance (Primary Dx) Start: 10-13-2023 End: 10-13-2023 Telemedicine consultation with patient Uro Airline Mechanic Nurse Vega Work Phone: TALLOW REFINER UROL [facility] Start: 10-01-2023 End: 10-01-2023 Subsequent hospital visit by physician Bone Density [facility] Work Phone: Radiology Comment on above: Encounter for screen ing for osteoporosis [Z13.820] Start: 09-28-2023 Telephone encounter Zachary dunaway MD Work Phone: URO/Gynecology Start: 09-28-2023 End: 09-28-2023 Patient encounter procedure Christina Martin APRN.CNP Work Phone: Internal Medicine [place] Comment on above: Osteopenia, unspecif ied location (Primary Dx); Encounter for screening for osteoporosis; Asymptomatic postmenopausal status; Annual physical exam Start: 08-28-2023 End: 08-28-2023 ambulatory SALESPERSON FURNITURE-C CHRISTINA MARTIN Work Phone: [facility] Work Phone: Start: 08-28-2023 End: 08-28-2023 Patient encounter procedure SALESPERSON FURNITURE-C CHRISTINA MARTIN Work Phone: [facility], [facility] Work Phone: Start: 08-24-2023 Telephone encounter Michael Manzanares MD Work Phone: [facility] Comment on above: Returning Patient's Call Start: 08-06-2023 End: 08-06-2023 Patient encounter procedure SALESPERSON FURNITURE-C CHRISTINA MARTIN Work Phone: [facility] Work Phone: Start: 08-06-2023 Telephone encounter Michael Manzanares MD Work Phone: [facility] Comment on above: Schedule Surgery Start: 08-03-2023 End: 08-03-2023 ambulatory SALESPERSON FURNITURE-C CHRISTINA MARTIN Work Phone: [facility] Work Phone: Start: 08-03-2023 End: 08-03-2023 Patient encounter procedure ABBY-Patria MARTIN Work Phone: [facility]-Ultrasound, [facility] Work Phone: Start: 07-30-2023 End: 07-30-2023 Patient encounter procedure NANO MARTIN Work Phone: [facility] Work Phone: Start: 07-29-2023 End: 07-29-2023 Patient encounter procedure Michael Manzanares MD Work Phone: TALLOW REFINER UROL [facility] Comment on above: Cystocele, midline ( Primary Dx); Mixed stress and urge urinary incontinence; Vaginal atrophy; Uterovaginal prolapse, incomplete; Rectocele; Preop examination Start: 07-29-2023 End: 07-29-2023 Preprocedural examination done Michael Manzanares MD Work Phone: [facility] Work Phone: Start: 06-18-2023 End: 06-18-2023 ambulatory [facility] Work Phone: Start: 06-18-2023 End: 06-18-2023 Patient encounter procedure [facility]-Cat Scan, [facility] Work Phone: Start: 06-01-2023 End: 06-01-2023 ambulatory [facility] Work Phone: Start: 06-01-2023 End: 06-01-2023 Patient encounter procedure [facility]-Laboratory, Specimen Work Phone: Start: 05-07-2023 ambulatory Kristen johnson APRN.SUSPENDER MAKER Work Phone: Gastroenterology Start: 04-16-2023 End: 04-16-2023 Patient encounter procedure Marcelina Madrigal MD Work Phone: OB/Gynecology Comment on above: Cystocele, midline ( Primary Dx); Uterine prolapse Start: 03-17-2023 End: 03-17-2023 ambulatory [facility] Work Phone: Start: 03-17-2023 End: 03-17-2023 Patient encounter procedure [facility]-Cat Scan, [facility] Work Phone: Start: 03-10-2023 Telephone encounter Christina Martin APRN.SUSPENDER MAKER Work Phone: Internal Medicine [place] Comment on above: Results Start: 03-09-2023 Documentation procedure Mammog jayne Coordinator [facility] Start: 03-09-2023 Letter encounter Mammography Coordinator [facility] Department Start: 03-06-2023 End: 03-06-2023 Subsequent hospital visit by physician Screen Mammo [facility] Mammogram Comment on above: Encounter for screen ing mammogram for breast cancer [Z12.31] Start: 03-05-2023 End: 03-05-2023 Subsequent hospital visit by physician Xr [facility] Work Phone: Radiology Comment on above: Right foot pain [M79 .671] Start: 03-05-2023 End: 03-05-2023 Patient encounter procedure Christina Martin APRN.SUSPENDER MAKER Work Phone: Internal Medicine [place] Comment on above: Osteopenia, unspecif ied location (Primary Dx); Bladder pain; Toe pain, right; Right foot pain; Need for influenza vaccination Start: 03-04-2023 ambulatory Murphy Suggs Work Phone: Internal Medicine [facility] [place] Start: 09-01-2022 End: 09-01-2022 Subsequent hospital visit by physician Xr [facility] Work Phone: Radiology Comment on above: Chronic right-sided low back pain without sciatica [M54.50, G89.29] Start: 07-11-2022 End: 07-11-2022 Patient encounter procedure Marlen Madrigal APRN.SUSPENDER MAKER Work Phone: [facility] Comment on above: Sore throat (Primary Dx) Start: 06-04-2022 End: 06-04-2022 ambulatory No Primary Care Physician [facility] Work Phone: Start: 06-04-2022 End: 06-04-2022 Discharged Recurring No Primary Care Physician [facility] Start: 06-03-2022 End: 06-03-2022 Patient encounter procedure No Primary Care Physician [facility] Start: 05-06-2022 End: 05-06-2022 Patient encounter procedure No Primary Care Physician [facility] Start: 04-28-2022 End: 04-28-2022 Patient encounter procedure Jerrell Sarmiento MD Work Phone: [facility] Comment on above: Acute non-recurrent sinusitis, unspecified location (Primary Dx) Start: 04-25-2022 End: 04-25-2022 Patient encounter procedure No Primary Care Physician [facility] Start: 04-23-2022 Non-patient / Non-visit No [facility]ena Care Physician [facility] Start: 04-23-2022 End: 04-23-2022 Admission to same day surgery center No [facility] Start: 04-23-2022 End: 04-23-2022 ambulatory No Primary Care Physician [facility] Work Phone: Start: 04-20-2022 End: 04-20-2022 Emergency department patient visit No Primary Care Physician [facility] Start: 03-03-2022 End: 03-03-2022 Patient encounter procedure No Primary Care Physician [facility] Start: 02-24-2022 End: 02-24-2022 ambulatory No Primary Care Physician [facility] Work Phone: Start: 02-24-2022 End: 02-24-2022 Patient encounter procedure No Primary Care Physician [facility] Start: 02-21-2022 End: 02-21-2022 Patient encounter procedure No Primary Care Physician [facility] Start: 02-06-2022 End: 02-06-2022 Patient encounter procedure Tanya Dobson APRN.CNP Work Phone: OB/Gynecology Comment on above: Encounter for routin e gynecologic examination in Medicare patient (Primary Dx); Urinary frequency; Cystocele, midline; Encounter for screening mammogram for breast cancer; Dense breast tissue Start: 02-06-2022 End: 02-06-2022 Patient encounter status Tanya Dobson APRN.CNP Work Phone: OB/Gynecology Start: 01-16-2022 Documentation procedure Mammog jayne Coordinator [facility] Start: 01-16-2022 Letter encounter Mammography Coordinator [facility] Department Start: 01-16-2022 End: 01-16-2022 Subsequent hospital visit by physician Screen Mammo [facility] Mammogram Comment on above: Encounter for screen ing mammogram for breast cancer [Z12.31] Start: 12-19-2021 End: 12-19-2021 Patient encounter procedure No Primary Care Physician [facility] Start: 08-30-2021 Refill Murphy Suggs Work Phone: Internal Medicine [place] Comment on above: Refill Request Start: 06-19-2021 End: 06-19-2021 Subsequent hospital visit by physician [facility] Work Phone: Radiology Comment on above: Abnormal x-ray [R93. 89] Start: 06-18-2021 End: 06-18-2021 Subsequent hospital visit by physician [facility] Work Phone: Radiology Comment on above: ov Start: 03-18-2021 End: 03-18-2021 Subsequent hospital visit by physician [facility] Work Phone: Radiology Comment on above: Osteopenia, unspecif ied location [M85.80] Procedures Date Procedure Procedure Detail Performing Clinician Start: 01-25-2025 MRI of small intestine CHRISTINA MARTIN [employer]ESPERSON FURNITURE-C Work Phone: Start: 01-05-2025 Lipid 1996 panel - Serum or Plasma Mayra Cuevas MD Work Phone: Start: 01-04-2025 Adult depression screening assessment Christina Martin APRN.CNP Work Phone: Start: 12-16-2024 Total iron binding capacity measurement CHRISTINA MARTIN [employer] Work Phone: Start: 12-03-2024 Intrinsic factor antibody measurement CHRISTINA OLDER [employer]URN[employer]URE[employer]C Work Phone: Comment on above: Performed at: [address] [id number] Director: Joao Burnham MD, Phone: [phone] at: [address] [id number] Director: Joaquin Lombardo PhD, Phone: [phone] Start: 11-08-2024 Esophagogastroduodenoscopy CHRISTINA OLDER [employer]URN[employer]URE- C Work Phone: Start: 10-14-2024 Computed tomography of abdomen and pelvis with contrast CHRISTINA MARTIN [employer] Work Phone: Start: 03-08-2024 Screening digital breast tomosynthesis bi Bulk Order Provider Start: 02-22-2024 Urnls dip stick/tablet rgnt auto w/o microscopy Michael Manzanares MD Work Phone: Start: 10-30-2023 Urnls dip stick/tablet rgnt auto w/o microscopy [facility] Provider Start: 10-27-2023 Antibody screen MICHAEL MANZANARES Comment on above: Order Comment: Specimen Type: BLOOD SPEC IMENOrdering Facility: [facility] Address: [address] [place] [address] Performed By: #### T SCR ####[facility] [id number] [address] [place] Start: 09-28-2023 Adult depression screening assessment Murphy Cuevas MD Work Phone: Start: 09-28-2023 Lipid 1996 panel - Serum or Plasma Zachary Nguyen MD Work Phone: Start: 08-28-2023 Ultrasonography of limb [employer] CHRISTINA MARTIN Work Phone: Start: 08-03-2023 Other BP Soft Tissue [employer] CHRISTINA OLDER Work Phone: Start: 07-29-2023 Urnls dip stick/tablet rgnt auto w/o microscopy Michael Manzanares MD Work Phone: Start: 06-18-2023 CT of face Start: 06-01-2023 Investigation of transfusion reaction Start: 06-01-2023 Nasopharyngeal Culture Start: 03-17-2023 Computed tomography of abdomen and pelvis with contrast Start: 03-06-2023 Screening digital breast tomosynthesis bi Tanya Dobson APRN.SUSPENDER MAKER Work Phone: Start: 03-05-2023 Radex foot complete minimum 3 views Christina Martin 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 Work Phone: Start: 03-05-2023 INFLUENZA VACCINE, PRSV FREE, AGE 65+ YR, HIGH DOSE, QUADRIVALENT (FLUZONE HIGH-DOSE) Christina Martin 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 Work Phone: Start: 09-02-2022 Lipid 1996 panel - Serum or Plasma Christina ortega 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 Work Phone: Start: 09-01-2022 Radex spine lumbosacral 2/3 views Christina schultz 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 Work Phone: Start: 07-11-2022 STREP A MOLECULAR (POC) Marlen Madrigal APRN.SUSPENDER MAKER Work Phone: Start: 04-23-2022 Arthroscopy of knee No Primary Care Physician Start: 04-20-2022 CT of chest without contrast No Primary Care Physician Start: 02-24-2022 MRI of joint of lower extremity No Prima ry Care Physician Start: 02-06-2022 Urnls dip stick/tablet rgnt auto w/o microscopy Tanya Dobson APRN.SUSPENDER MAKER Work Phone: Start: 01-16-2022 TAYLOR SCREENING W AQUILES Tanya Dobson APRN.SUSPENDER MAKER Work Phone: Start: 01-16-2022 Mammography Screen [facility] Start: 12-19-2021 Radiologic examination of knee No Primar y Care Physician Start: 06-19-2021 Radiologic exam chest 2 views Alondra díaz APRN.SUSPENDER MAKER Work Phone: Start: 06-18-2021 Radex shoulder complete minimum 2 views Alondra Pelletier 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 Work Phone: Start: 03-18-2021 Radex spine lumbosacral 2/3 views Murphy Cuevas MD Work Phone: Start: 03-18-2021 Adult depression screening assessment Murphy Cuevas MD Work Phone: Start: 12-20-2020 Mammography Murphy Cuevas MD Work Phone: Start: 07-02-2018 Colonoscopy Murphy Cuevas MD Work Phone: Plan of Treatment Date Care Activity Detail Author Start: 01-05-2030 Lipid panel Lipid Screening [facility] Start: 09-27-2028 Lipid panel Lipid Screening [facility] Start: 07-02-2028 Colonoscopy COLONOSCOPY [facility] Start: 07-02-2028 COLORECTAL CANCER SCREENING COLORECTAL CANCER SCREENING [facility] Start: 07-02-2028 Screening for malignant neoplasm of colon [facility] Start: 01-06-2028 Diabetes Screening Diabetes Screening [facility] Start: 09-03-2027 Lipid 1996 panel - Serum or Plasma Lipid Screening [facility] Start: 09-03-2027 Lipid panel Lipid Screening [facility] Start: 09-27-2026 Diabetes Screening Diabetes Screening [facility] Start: 06-18-2026 LIPID SCREEN LIPID SCREEN [facility] Start: 03-05-2026 Diabetes Screening Diabetes Screening [facility] Start: 01-04-2026 Anxiety Screening Anxiety Screening [facility] Start: 01-04-2026 Depression Screening Depression Screening [facility] Start: 01-04-2026 Medicare Annual Wellness Visit Medicare Annual Wellness Visit [facility] Start: 09-30-2025 Screening for osteoporosis Bone Density Screening [facility] Start: 05-16-2025 End: 05-16-2025 Patient encounter procedure 05/16/2025 8:00 AM EST Office Visit URO/Gynecology [address] [place] [id number] Dung Holman, 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 [address] [place] [id number] 6 month follow up URO/Gynecology Comment on above: 6 month follow up Start: 03-10-2025 End: 03-10-2025 Patient encounter procedure 03/10/2025 8:30 AM EDT Appointment Mammogram [address] [place] [id number] Mammogram Start: 03-08-2025 Screening for malignant neoplasm of breast Mammogram Screening [facility] Start: 02-15-2025 End: 02-15-2025 Patient encounter procedure 02/15/2025 9:40 AM EDT Office Visit Internal Medicine [place] [address] [facility] [place] [id number] Christina Martin APRN.SUSPENDER MAKER [address] [facility] [place] [id number] 6 week follow up Internal Medicine [facility] Comment on above: 6 week follow up Start: 02-02-2025 Radionuclide gastric emptying study [facility] Start: 01-25-2025 Following clinical pathway protocol [facility] Start: 01-16-2025 Influenza vaccination Influenza Vaccine (#1) [facility] Start: 01-04-2025 End: 04-05-2025 25-hydroxyvitamin D3 [Mass/volume] in Serum or Plasma VITAMIN D 25 HYDROXY Lab Routine Osteopenia, unspecified location Medication management Expected: 01/04/2025, Expires: 04/05/2025 [facility] Work Phone: Comment on above: Expected: 01/04/2025, Expires: Start: 01-04-2025 End: 04-05-2025 CBC panel - Blood by Automated count COMPLETE BLOOD COUNT Lab Routine Osteopenia, unspecified location Medication management Expected: 01/04/2025, Expires: 04/05/2025 [facility] Comment on above: Expected: 01/04/2025, Expires: Start: 01-04-2025 End: 04-05-2025 Comprehensive metabolic 2000 panel - Serum or Plasma COMPREHENSIVE METABOLIC PANEL Lab Routine Lipid screening Osteopenia, unspecified location Medication management Expected: 01/04/2025, Expires: 04/05/2025 [facility] Comment on above: Expected: 01/04/2025, Expires: Start: 01-04-2025 End: 04-05-2025 Lipid 1996 panel - Serum or Plasma LIPID PANEL, FASTING Lab Routine Lipid screening Expected: 01/04/2025, Expires: 04/05/2025 [facility] Comment on above: Expected: 01/04/2025, Expires: Start: 01-04-2025 End: 04-05-2025 Magnesium [Mass/volume] in Serum or Plasma MAGNESIUM Lab Routine Medication management Expected: 01/04/2025, Expires: 04/05/2025 [facility] Comment on above: Expected: 01/04/2025, Expires: Start: 01-04-2025 End: 04-05-2025 Phosphate [Mass/volume] in Serum or Plasma PHOSPHORUS INORGANIC Lab Routine Medication management Expected: 01/04/2025, Expires: 04/05/2025 [facility] Comment on above: Expected: 01/04/2025, Expires: Start: 01-04-2025 End: 01-04-2025 Patient encounter procedure 01/04/2025 9:00 AM EDT Office Visit Internal Medicine [facility] [address] [place] [address] Christina Martin APRN.[facility] [address] [place] [address] annual medicare wellness [facility] Comment on above: annual medicare wellness Start: 11-08-2024 Egd transoral biopsy single/multiple EGD BIOPSY SINGLE/MULTIPLE [facility] Start: 11-08-2024 Patient discharge [facility] Start: 10-24-2024 Patient referral [facility] Work Phone: Start: 10-17-2024 End: 10-17-2024 Patient encounter procedure 10/17/2024 9:00 AM EDT Office Visit URO/Gynecology [address] [place] [address] Michael Manzanares MD [address] [facility] [address] [place] [address] follow up URO/Gynecology Comment on above: follow up Start: 09-27-2024 Anxiety Screening Anxiety Screening [facility] Start: 09-27-2024 Covid-19 Vaccine () Covid-19 Vaccine () [facility] Comment on above: Postponed from 01/16/2023 (Declined at t his time) Start: 09-27-2024 Depression Screening Depression Screening [facility] Start: 09-27-2024 Urine microalbumin profile DTaP,Tdap,Td Vaccine (1 - Tdap) [facility] Comment on above: Postponed from [birth year]/13/1971 (Declined at t his time) Start: 08-16-2024 Covid-19 Vaccine () Covid-19 Vaccine () [facility] Start: 06-18-2024 DIABETES SCREEN DIABETES SCREEN [facility] Start: 05-18-2024 Advance Directive Discussion Advance Directive Discussion [facility] Start: 04-18-2024 End: 04-18-2024 Patient encounter procedure 04/18/2024 9:20 AM EST Office Visit Internal Medicine [place] [address] [place] [address] Christina Martin APRN.SUSPENDER MAKER [address] [place] [address] 2 week follow up [facility] [place] Comment on above: 2 week follow up Start: 03-31-2024 End: 03-31-2024 Patient encounter procedure 03/31/2024 7:20 AM EST Office Visit Internal Medicine [place] [address] [place] [address] Christina Martin 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 [address] [place] [address] 6 month follow up-labs and bone density [facility] [place] Comment on above: 6 month follow up-labs and bone density Start: 03-08-2024 End: 03-08-2024 Patient encounter procedure 03/08/2024 7:30 AM EDT Appointment Mammogram [address] [place] [address] Encounter for screening mammogram for breast cancer [Z12.31] Mammogram Comment on above: Encounter for screening mammogram for br east cancer [Z12.31] Start: 03-06-2024 Mammography Mammogram Screening [facility] Start: 03-06-2024 Screening for malignant neoplasm of breast Mammogram Screening [facility] Start: 02-22-2024 End: 02-22-2024 Patient encounter procedure 02/22/2024 1:30 PM EDT Office Visit URO/Gynecology [address] [place] [address] Michael Manzanares MD [address] [address] [facility]RO/Gynecology Comment on above: [facility] Start: 02-05-2024 End: 02-05-2024 Patient encounter procedure 02/05/2024 11:45 AM EDT Office Visit URO/Gynecology [address] [place] [address] Michael Manzanares MD [facility] [address] [address] POST OP 3 MONTHS URO/Gynecology Comment on above: POST OP 3 MONTHS Start: 02-04-2024 End: 05-05-2024 CBC panel - Blood by Automated count CBC Lab Routine Uterovaginal prolapse, incomplete Preop examination Expected: 02/04/2024, Expires: 05/05/2024 [facility] Work Phone: Comment on above: Expected: 02/04/2024, Expires: Start: 01-28-2024 End: 01-28-2024 Patient encounter procedure 01/28/2024 8:30 AM EDT Office Visit [facility] [address] [id number] Mara Landeros APRN.SUSPENDER MAKER [address] [place] [address] -x2 (Work) POST OP 3 MONTHS [facility] Comment on above: POST OP 3 MONTHS Start: 01-17-2024 Covid-19 Vaccine ( season) Covid-19 Vaccine () [facility] Start: 01-17-2024 Covid-19 Vaccine ( season) Covid-19 Vaccine ( season) [facility] Start: 01-17-2024 Influenza vaccination Influenza Vaccine (#1) [facility] Start: 12-02-2023 End: 12-02-2023 Patient encounter procedure 12/02/2023 10:30 AM EDT Office Visit [facility] [address] [address] Michael Manzanares MD [address] [address] POST OP 4-6 WEEKS [facility] Comment on above: POST OP 4-6 WEEKS Start: 10-27-2023 End: 10-27-2023 Admission to same day surgery center 10/27/2023 7:30 AM EDT - 10/27/2023 12:00 PM EDT Surgery [facility] [address] [place] [address] Michael Manzanares MD [address] [address] COLPOPEXY VAGINAL VAULT SUSPENSION INTRA-PERITONEAL APPROACH [facility] Comment on above: COLPOPEXY VAGINAL VAULT SUSPENSION INTRA -PERITONEAL APPROACH Start: 10-27-2023 End: 10-27-2023 Cmbnd anterpost colporraphy w/cysto COMBINED ANTERIOPOSTERIOR COLPORRHAPHY INCLUDING CYSTOURETHROSCOPY WHEN PERFORMED Uterovaginal prolapse, incomplete Cystocele, midline Rectocele 10/27/2023 7:30 AM EDT OR Start: 10-27-2023 End: 10-27-2023 Colpopexy vaginal intraperitoneal approach COLPOPEXY VAGINAL VAULT SUSPENSION INTRA-PERITONEAL APPROACH Uterovaginal prolapse, incomplete Cystocele, midline Rectocele 10/27/2023 7:30 AM EDT [facility] OR Start: 10-27-2023 End: 10-27-2023 Perineoplasty rpr perineum nonobstetrical spx PERINEOPLASTY, NON-OBSTETRICAL Uterovaginal prolapse, incomplete Cystocele, midline Rectocele 10/27/2023 7:30 AM EDT [facility] OR Start: 10-27-2023 Subsequent hospital visit by physician 10/27/2023 7:30 AM EDT Hospital Encounter [facility] [address] [place] [address] Michael Manzanares MD [address] [facility] [address] [place] [address] Uterovaginal prolapse, incomplete [N81.2] [facility] Comment on above: Uterovaginal prolapse, incomplete [N81.2 ] Start: 10-27-2023 End: 10-27-2023 Vag hyst 250 gm/< w/rmvl tube&/ovary HYSTERECTOMY VAGINAL UTERUS 250G OR LESS REMOVAL TUBE(S) AND/OR OVARY(S) Uterovaginal prolapse, incomplete Cystocele, midline Rectocele 10/27/2023 7:30 AM EDT [facility] OR Start: 10-16-2023 End: 10-16-2023 ambulatory 10/16/2023 2:00 PM EDT Results Only [facility] [address] [place] [address] PRE OP [facility] Comment on above: PRE OP Start: 10-16-2023 End: 10-16-2023 Anesthesia consultation 10/16/2023 1:00 PM EDT PAT Pre Anesthesia [address] [place] [address] 1, Pacc [place] [address] [place] [address] PRE OP Pre Anest[facility] Comment on above: PRE OP Start: 10-13-2023 End: 10-13-2023 ambulatory 10/13/2023 1:00 PM EDT [facility] [address] [address] Gary Uro [employer] Mechan[employer] Nurse [address] [address] PRE OP TEACHING TELEVISIT [facility] Comment on above: PRE OP TEACHING TELEVISIT Start: 10-01-2023 End: 10-01-2023 Patient encounter procedure 10/01/2023 7:45 AM EDT Appointment Radiology [address] [place] [phone] Encounter for screening for osteoporosis [Z13.820]; Asymptomatic postmenopausal status [Z78.0] Radiology Comment on above: Encounter for screening for osteoporosis [Z13.820]; Asymptomatic postmenopausal status [Z78.0] Start: 09-28-2023 End: 12-28-2023 Comprehensive metabolic 2000 panel - Serum or Plasma [facility] Comment on above: Expected: 09/28/2023, Expires: 4 Start: 09-28-2023 End: 12-28-2023 Lipid 1996 panel - Serum or Plasma [facility] Work Phone: Comment on above: Expected: 09/28/2023, Expires: 4 Start: 09-02-2023 Medicare Annual Wellness Visit Medicare Annual Wellness Visit [facility] Start: 09-02-2023 Urine microalbumin profile DTaP,Tdap,Td Vaccine (1 - Tdap) [facility] Comment on above: Postponed from 12/13/1971 (Declined at t his time) Start: 05-18-2023 Advance Directive Discussion Advance Directive Discussion [facility] Start: 05-18-2023 Behavioral Health Screening Behavioral Health Screening [facility] Start: 05-18-2023 Depression Assessment Depression Assessment [facility] Start: 01-16-2023 Covid-19 Vaccine () Covid-19 Vaccine () [facility] Start: 01-16-2023 Mammography [facility] Start: 05-18-2022 ADVANCE DIRECTIVE DISCUSSION ADVANCE DIRECTIVE DISCUSSION [facility] Start: 05-18-2022 DEPRESSION ASSESSMENT DEPRESSION ASSESSMENT [facility] Start: 04-28-2022 End: 05-12-2022 SARS-CoV-2 (COVID-19) RNA [Presence] in Respiratory specimen by FLACO with probe detection 2019 CORONAVIRUS Microbiology Routine Acute non-recurrent sinusitis, unspecified location Expected: 04/28/2022, Expires: 05/12/2022 [facility] Work Phone: Comment on above: Expected: 04/28/2022, Expires: 2 Start: 04-25-2022 Patient referral [facility] Work Phone: Start: 04-23-2022 Anes open/surg arthroscopic proc knee joint nos ANESTH KNEE JOINT SURGERY [facility] Start: 04-23-2022 Arthrs kne surg w/meniscectomy med/lat w/shvg KNEE ARTHROSCOPY/SURGERY [facility] Start: 04-23-2022 Patient discharge [facility] Start: 03-18-2022 Adult depression screening assessment DEPRESSION SCREENING [facility] Start: 01-16-2022 Influenza vaccination INFLUENZA (#1) [facility] Start: 12-20-2021 Mammography MAMMOGRAM [facility] Start: 07-24-2021 COVID-19 VACCINE (4 - Booster for Moderna series) COVID-19 VACCINE (4 - Booster for Moderna series) [facility] Start: 05-21-2021 COVID-19 VACCINE (4 - Booster for Moderna series) COVID-19 VACCINE (4 - Booster for Moderna series) [facility] Start: 05-18-2021 ADVANCE DIRECTIVE DISCUSSION ADVANCE DIRECTIVE DISCUSSION [facility] Start: 05-18-2021 DEPRESSION ASSESSMENT DEPRESSION ASSESSMENT [facility] Start: 06-05-2020 SHINGRIX VACCINE (2 of 2) SHINGRIX VACCINE (2 of 2) [facility] Start: 05-22-2019 PNEUMOCOCCAL: 65+ (2 - PPSV23 if available, else PCV20) PNEUMOCOCCAL: 65+ (2 - PPSV23 if available, else PCV20) [facility] Start: 05-22-2019 PNEUMOCOCCAL: 65+ (2 - PPSV23 or PCV20) PNEUMOCOCCAL: 65+ (2 - PPSV23 or PCV20) [facility] Start: 2017 PNEUMOVAX AGE 65 AND OVER WITH 5YR LOOKBACK (#1) PNEUMOVAX AGE 65 AND OVER WITH 5YR LOOKBACK (#1) [facility] Start: 2012 RSV Vaccine (1 - 1-dose 60+ series) RSV Vaccine (1 - 1-dose 60+ series) [facility] Start: 1997 COLOGUARD (FIT-DNA) COLOGUARD (FIT-DNA) [facility] Start: [address] COLONOGRAPHY [facility] Start: 1997 FECAL OCCULT BLOOD FECAL OCCULT BLOOD [facility] Start: 1997 Screening for malignant neoplasm of colon [facility] Start: 1997 SIGMOIDOSCOPY SIGMOIDOSCOPY [facility] Start: 12-13-1971 Urine microalbumin profile [facility] End: 10-27-2024 BD DXA TRABECULAR BONE SCORE (TBS) BD DXA TRABECULAR BONE SCORE (TBS) Radiology Routine Encounter for screening for osteoporosis Asymptomatic postmenopausal status 1 Occurrences starting 09/28/2023 until 10/27/2024 [facility] Comment on above: 1 Occurrences starting 09/28/2023 until 10/27/2024 BD DXA TRABECULAR JASSI NE SCORE (TBS) BD DXA TRABECULAR BONE SCORE (TBS) Radiology Routine Encounter for screening for osteoporosis Asymptomatic postmenopausal status 10/01/2023 8:08 AM EDT [facility] CYSTOSCOPY WHI CYSTOSCOPY WHI P rocedures Routine JEMIMA (stress urinary incontinence, female) 1 Occurrences starting 02/05/2024 [facility] Work Phone: Comment on above: 1 Occurrences starting 02/05/2024 End: 02-16-2026 DBT Breast - bilateral screening TAYLOR SCREENING W AQUILES Radiology Routine Encounter for screening mammogram for breast cancer 1 Occurrences starting 01/18/2025 until 02/16/2026 [facility] Work Phone: Comment on above: 1 Occurrences starting 01/18/2025 until 02/16/2026 End: 10-27-2024 DXA Skeletal system.axial Views for bone density DXA-AXIAL SKELETON Radiology Routine Encounter for screening for osteoporosis Asymptomatic postmenopausal status 1 Occurrences starting 09/28/2023 until 10/27/2024 [facility] Comment on above: 1 Occurrences starting 09/28/2023 until 10/27/2024 DXA Skeletal system.axial Views for bone density DXA-AXIAL SKELETON Radiology Routine Encounter for screening for osteoporosis Asymptomatic postmenopausal status 10/01/2023 8:08 AM EDT [facility] Work Phone: Gastrin [Mass/volume ] in Serum or Plasma [facility] End: 03-08-2023 TAYLOR SCREENING W AQUILES TAYLOR SCREENING W AQUILES Radiology Routine Encounter for screening mammogram for breast cancer Dense breast tissue 1 Occurrences starting 02/06/2022 until 03/08/2023 [facility] Work Phone: Comment on above: 1 Occurrences starting 02/06/2022 until 03/08/2023 End: 04-02-2024 TAYLOR SCREENING W AQUILES TAYLOR SCREENING W AQUILES Radiology Routine Encounter for screening mammogram for breast cancer 1 Occurrences starting 03/04/2023 until 04/02/2024 [facility] Work Phone: Comment on above: 1 Occurrences starting 03/04/2023 until 04/02/2024 MRI of small intestine [facility] Patient Education ED Rib Fracture [facility] Work Phone: Patient referral [facility] Work Phone: Puncture procedure [facility] US Abdomen limited [facility] Vitamin B12 measurement [facility] XR Abdomen Single view [facility] End: 04-03-2024 XR FOOT GENERAL 3V AP/LAT/OBL RIGHT XR FOOT GENERAL 3V AP/LAT/OBL RIGHT Radiology Routine Right foot pain 1 Occurrences starting 03/05/2023 until 04/03/2024 [facility] Work Phone: Comment on above: 1 Occurrences starting 03/05/2023 until 04/03/2024 XR FOOT GENERAL 3V AP/LAT/OBL RIGHT XR FOOT GENERAL 3V AP/LAT/OBL RIGHT Radiology Routine Right foot pain 03/05/2023 9:06 AM EDT [facility] Work Phone: End: 04-03-2024 XR TOE AP/LAT/OBL RIGHT XR TOE AP/LAT/OBL RIGHT Radiology Routine Toe pain, right 1 Occurrences starting 03/05/2023 until 04/03/2024 [facility] Work Phone: Comment on above: 1 Occurrences starting 03/05/2023 until 04/03/2024 [facility] Immunizations Immunization Date Immunization Notes Care Provider Cecil aiken 02-16-2024 influenza virus vacc ine, unspecified formulation Tanya Plascencia MA [facility] 03-05-2023 influenza (HD-IIV4) vaccine, age 65+ yr, high dose, quadrivalent, PF (FLUZONE HIGH-DOSE) Christina Martin 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 Work Phone: [facility] 03-05-2023 influenza virus vacc ine, unspecified formulation Michael Manzanares MD Work Phone: [facility] 03-18-2022 pneumococcal polysaccharide vaccine, 23 valent Christina Martin 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 Work Phone: [facility] Work Phone: 08-24-2020 zoster vaccine recombinant Christina Martin 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 Work Phone: [facility] 07-12-2020 COVID-19 vaccine, fu ll dose (MODERNA) Murphy Cuevas MD Work Phone: [facility] Work Phone: 06-15-2020 COVID-19 vaccine, fu ll dose (MODERNA) Murphy Cuevas MD Work Phone: [facility] Work Phone: 04-10-2020 zoster vaccine recombinant Murphy Cuevas MD Work Phone: [facility] Work Phone: 05-22-2018 influenza, high dose seasonal, preservative-free Murphy Cuevas MD Work Phone: [facility] 05-22-2018 pneumococcal conjuga te vaccine, 13 valent Murphy Cuevas MD Work Phone: [facility] 03-20-2009 novel influenza-H1N1 -09, preservative-free, injectable Murphy Cuevas MD Work Phone: [facility] Work Phone: 05-03-2004 hepatitis B vaccine, adult dosage Murphy Cuevas MD Work Phone: [facility] Work Phone: 11-24-2003 hepatitis B vaccine, adult dosage Murphy Cuevas MD Work Phone: [facility] Work Phone: 10-23-2003 hepatitis B vaccine, adult dosage Murphy Cuevas MD Work Phone: [facility] Work Phone: Payers Date Payer Category Payer Self-pay 2021 Unknown [id number] 2021 Medicare UHC AAR MEDICAR E [facility] MEDICARE O [id number] 2021-Present [phone] [address] [address] [place] [address] O [id number] 2020 Private Health Insurance [id number] 2017 Medicare [id number] 2017 Medicare [id number] Unknown [id number] Unknown [id number] [id number]. 462 Unknown [id number] 2.16.840.1.604883.3.579.2. 462 Unknown [id number] 2.16.840.1.668898.3.579.2. 462 Unknown [id number] 2.16.840.1.994098.3.579.2. 462 Unknown [id number] 2.16.840.1.975190.3.579.2. 462 Unknown [id number] 2.16.840.1.408426.3.579.2. 462 Unknown [id number] 2.16.840.1.547291.3.579.2. 462 Unknown [id number] 2.16.840.1.635720.3.579.2. 462 Unknown [id number] 2.16.840.1.880067.3.579.2. 462 Unknown [id number] 2.16.840.1.402131.3.579.2. 462 Unknown [id number] 2.16.840.1.176439.3.579.2. 462 Unknown [id number] 2.16.840.1.180453.3.579.2. 462 Unknown [id number] 2.16.840.1.103874.3.579.2. 462 Unknown [id number] 2.16.840.1.927961.3.579.2. 462 Unknown [id number] 2.16.840.1.674165.3.579.2. 462 Unknown [id number] 2.16.840.1.153847.3.579.2. 462 Unknown [id number] 2.16.840.1.578363.3.579.2. 462 Unknown [id number] 2.16.840.1.410194.3.579.2. 462 Unknown [id number] 2.16840.1.484190.3.579.2. 462 Unknown [id number] 2.16840.1.505815.3.579.2. 462 Social History Date Type Detail Facility Start: 07-02-2018 End: 12-29-2024 Tobacco smoking status NHIS Ex-smoker [facility] Start: 05-18-1973 End: 05-18-1984 History of tobacco use Current smoker [facility] Start: 05-18-1973 End: 05-18-1984 History of tobacco use Cigarette Smoker [facility] Start: 06-18-2021 End: 01-04-2025 Alcohol intake Current drinker of alcohol (finding) [facility] Start: 06-18-2021 End: 03-06-2023 Alcohol intake [facility] Start: 03-18-2021 History SDOH Alcohol Frequency 5 [facility] Start: 03-18-2021 History SDOH Alcohol Std Drinks 1 [facility] Start: 03-18-2021 History SDOH Alcohol Binge 2 [facility] Start: 08-23-2020 History SDOH Alcohol Comment wine 5-6 days/week [facility] Start: 03-18-2021 History SDOH Social Connections Meetings 98 [facility] Start: 03-18-2021 History SDOH Social Connections Living 3 [facility] Start: 03-18-2021 History SDOH Physica l Activity MPS 6 [facility] Start: 1950 Sex Assigned At Female [facility] Start: 07-02-2018 End: 02-22-2024 Tobacco use and exposure Smokeless tobacco non-user [facility] Start: 02-16-2021 End: 02-06-2022 Exposure to SARS-CoV-2 (event) Not sure [facility] Start: 02-21-2022 End: 08-06-2023 Tobacco smoking status NHIS Unknown if ever smoked [facility] Start: 09-01-2022 End: 03-06-2023 Social connection and isolation panel [facility] Start: 04-18-2012 How often do you att end anabaptist or nondenominational services? Patient refused [facility] Do you belong to any clubs or organizations such as anabaptist groups, unions, fraternal or athletic groups, or school groups? No [facility] Are you now , , , , never or living with a partner? [facility] How often to you hav e a drink containing alcohol? 2-3 time sa week [facility] How many standard drinks containing alcohol do you have on a typical day? 1 or 2 [facility] How often do you hav e 6 or more drinks on 1 occasion? Never [facility] Do you feel stress - tense, restless, nervous, or anxious, or unable to sleep at night because your mind is troubled all the time - these days [OSQ] Not at all [facility] (I/We) worried wheth er (my/our) food would run out before (I/we) got money to buy more. Never true [facility] Start: 09-01-2022 Alcohol Comment 1-2 glasses a few times a week [facility] Start: 12-18-2019 Gender identity Identifies as female gender (finding) [facility] Start: 12-18-2019 Sexual orientation Heterosexual (martin little) [facility] How often to you hav e a drink containing alcohol? 4 or more times a week [facility] How often do you hav e 6 or more drinks on 1 occasion? Less than monthly [facility] Do you feel stress - tense, restless, nervous, or anxious, or unable to sleep at night because your mind is troubled all the time - these days [OSQ] Only a little [facility] NEGATED: Highlighted row [facility] Goals Date Patient Goal Desired Activity /State Functional Status Date Assessment Result Facility 01-04-2025 Total score [AUDIT-C] 3 01/05/20 25 9:01 AM EMILYT Christina Martin APRN.SUSPENDER MAKER [facility] 05-22-2018 Are you deaf, or do you have serious difficulty hearing No 05/22/2018 10:02 AM Khris Quintana MD No [facility] 05-22-2018 Are you blind, or do you have serious difficulty seeing, even when wearing glasses No 05/22/2018 10:02 AM Khris Quintana MD No [facility] 05-22-2018 Do you have serious difficulty walking or climbing stairs No 05/22/2018 10:02 AM Khris Quintana MD No [facility] 05-22-2018 Do you have difficul ty dressing or bathing No 05/22/2018 10:02 AM Khris Quintana MD No [facility] 05-22-2018 Because of a physica l, mental, or emotional condition, do you have difficulty doing errands alone such as visiting a physician's office or shopping No 05/22/2018 10:02 AM Khris Quintana MD No [facility] Mental Status Date Assessment Result Facility 11-08-2024 Cognitive function Touch/Shaking [facility] Work Phone: 04-23-2022 Cognitive function Voice/Name [facility] Work Phone: 05-22-2018 Because of a physica l, mental, or emotional condition, do you have serious difficulty concentrating, remembering, or making decisions No 05/22/2018 10:02 AM Khris Quintana MD No [facility] Clinical Notes 03-18-2021 to 01-18-2025 Telephone Encounter - Murphy Cuevas MD - 01/18/2025 3:12 PM EDTTelephone Encounter - Murphy Cuevas MD - 01/18/2025 3:12 PM EDTTelephone Encounter - Eden Hooks RN - 01/17/2025 1:16 PM EDT Note Date & Type Note Facility 01-18-2025 Telephone encounter Note Filed as requested Regards, Murphy Cuevas MD' [facility] 01-18-2025 Miscellaneous Notes Filed as requested Regards, Murphy Cuevas MD' Pt called in and was asking if provider could put in an order for her mammogram. Please call and let Pt know once the order is in. Eden Hooks RN documented in this encounter [facility] 01-17-2025 Telephone encounter Note Pt called in and was asking if provider could put in an order for her mammogram. Please call and let Pt know once the order is in. Eden Hooks RN [facility] 01-04-2025 Christina Armas APRN.SUSPENDER MAKER - 01/04/2025 9:03 AM EDT - Stop taking Fosamax immediately, including the remaining dose. - Continue your Protonix for reflux as prescribed. - Discontinue calcium and vitamin D supplements for now; you may continue the magnesium. - Reduce your alcohol intake to help protect your bone density. - Schedule a fasting blood draw for: - Cholesterol - Kidney and liver function tests - Electrolytes - Complete blood count - Vitamin D - Phosphorus - Magnesium - Calcium (The lab opens at 6:00 am; come in fasting when you re able.) - Keep up with regular dental exams and complete any needed dental work before starting your bone-strengthening infusion. - After your blood results return, we ll arrange a once-a-year bone-strengthening infusion (instead of weekly pills) based on your insurance coverage. Screening schedule The following prevention plan is recommended: DTaP,Tdap,Td Vaccine(1 - Tdap) Never done Medicare Annual Wellness Visit due on 09/02/2023 Advance Directive Discussion due on 05/18/2024 Depression Screening due on 09/27/2024 Anxiety Screening due on 09/27/2024 Mammogram Screening due on 03/08/2025 WHAT YOU CAN DO TO PREVENT FALLS Many falls can be prevented. By making some changes, you can lower your chances of falling. Four things YOU can do to prevent falls for you* and your caregiver 1. Begin a regular exercise program Exercise is one of the most important ways to lower your chances of falling. It makes you stronger and helps you feel better. Exercises that improve balance and coordination (like Shailesh Chi) are the most helpful. Lack of exercise leads to weakness and increases your chances of falling. Ask your doctor or health care provider about the best type of exercise program for you. 2. Have your health care provider review your medicines Have your doctor or pharmacist review all the medicines you take, even liig-kpf-smlyrub medicines. As you get older, the way medicines work in your body can change. Some medicines, or combinations of medicines, can make you sleepy or dizzy and can cause you to fall. 3. Have your vision checked Have your eyes checked by an eye doctor at least once a year. You may be wearing the wrong glasses or have a condition like glaucoma or cataracts that limits your vision. Poor vision can increase your chances of falling. 4. Make your home safer About half of all falls happen at home. To make your home safer: Remove things you can trip over (like papers, books, clothes, and shoes) from stairs and places where you walk. Remove small throw rugs or use double-sided tape to keep the rugs from slipping. Keep items you use often in cabinets you can reach easily without using a step stool. Have grab bars put in next to your toilet and in the tub or shower. Use non-slip mats in the bathtub and on shower floors. Improve the lighting in your home. As you get older, you need brighter lights to see well. Hang light-weight curtains or shades to reduce glare. Have handrails and lights put in on all staircases. Wear shoes both inside and outside the house. Avoid going barefoot or wearing slippers. For more information, contact: Centers for Disease Control and Prevention www.cdc.gov/injury * This information may not apply if you have certain medical conditions. documented in this encounter [facility] 01-04-2025 History of Presen t illness Narrative Images from the original note were not included. Phyllis Sanchez is a 74 year old female here for a Medicare wellness visit. Medicare Health Risk Assessment General Health Very good Exercise: Minutes/Day 60 min Exercise: Days/Week 6 days Alcohol: Daily Use 2-3 times a week Alcohol: Drinks/Day 1 or 2 Alcohol: 6 or more drinks Never Feel off balance No Concerns: Teeth/Dentures No Concerns: Sexual function No Troubled by feelings None of the above Frequency: Eating healthy diet Several days ADLs requiring help None of the above Safety precautions in home/vehicle Decline Smoke, vape, chews tobacco No Difficulty hearing No Difficulty seeing No Current Providers Specialists: I have reviewed specialist-related care of the patient in the medical record. Gastroenterology: Dr. King Urogynecology: Dr. Helms Optometry: Dr. Gilbert Medical/Family history review Reviewed and updated problem list, medical/surgical/family/social history, medications, and allergies. Opioid use review Opioid Medications (last 90 days) No data to display Anxiety/Depression screening PHQ-2 Score: 0 (Lower risk for depression) ZURI-2 Score: 0 (Lower risk for anxiety) Recommendation: no further intervention at this time Cognitive screening Mini Cog Score: 5 Cognitive screening reviewed and No further action needed (score 3-5). Functional Observation Was the patient's Timed Up & Go test unsteady or >= 12 seconds? No Advance Care Planning Patient was not able to provide a surrogate decision maker or written advance directives Measurements BP 121/71 Pulse 80 Resp 16 Ht 155.4 cm (5' 1.18) Wt 46.7 kg (103 lb) SpO2 96% BMI 19.35 kg/m Vision Screening: Follows with optometry/ophthalmology Assessment/Plan Medicare annual wellness visit, subsequent (Z00.00) - Counseled on healthy diet and regular exercise - Fall avoidance information provided - Personalized prevention plan provided - Counseled patient on alcohol intake and associated health risks CC: Patient presents with: Medicare Wellness Exam: Annual Medicare wellness HPI Phyllis Sanchez is a 74 year old female who presents today for medicare wellness and follow up. Recording using [employer] software for draft documentation of the visit was discussed with the patient/authorized financial foundations representative; all questions welcomed and answered. Patient/authorized financial foundations representative agreed to proceed Montez's Esophagus: - Diagnosed recently by Dr. King's office. - Started on Protonix 2-2.5 weeks ago. - Denies heartburn; experiences morning phlegm and occasional coughing spells. - Coughing spells have decreased since starting Protonix. - Denies dyspnea, wheezing, heartburn, difficulty swallowing, nausea, vomiting, fever, or chills. Osteopenia: - Diagnosed with osteopenia; last bone density scan was last year. - Taking calcium and vitamin D supplements. - On Fosamax for a couple of years, with a brief interruption in prescription. - Denies any bone fractures. - No regular weight-bearing exercise routine. - Last bone density scan showed a higher risk for hip fracture. - Taking magnesium supplements. - Consumes alcohol; denies smoking. - Last dental exam in September, with no concerns or cavities. REVIEW OF SYSTEMS General: no fevers, no chills, no night sweats, no recurrent infections, no change in appetite, no change in energy, and no significant changes in weight Respiratory: no cough, no wheezing, no shortness of breath, no hemoptysis Cardiovascular: no chest pain, no chest pressure, no palpitations, and no swelling Endocrine: no fatigue, no weight gain, no weight loss, no polyuria, no polyphagia, and no polydipsia Neurologic: No headache, weakness, numbness, dizziness, memory loss, syncope. PAST MEDICAL HISTORY [...] suspension Anterior colporrhaphy Posterior colporrhaphy Perineorrhaphy Cystoscopy REPAIR OF NASAL SEPTUM 04/2024 S MENISCAL REPAIR OUT/IN Left ALLERGIES Patient has no known allergies. MEDICATIONS pantoprazole DR (PROTONIX) 20 mg tablet Take 20 mg by mouth once daily. estradiol (ESTRACE) 0.01 % (0.1 mg/gram) vaginal cream apply one gram or soybean sized amount over the vaginal opening every night for 2 weeks then 2 evenings per week vit C/E/cuperic/zinc/lutein (PRESERVISION LUTEIN ORAL) Take by [...] Problems Son Breast Cancer Maternal Aunt SOCIAL HISTORY[1] PHYSICAL EXAM BP 121/71 Pulse 80 Resp 16 Ht 155.4 cm (5' 1.18) Wt 46.7 kg (103 lb) SpO2 96% BMI 19.35 kg/m General Appearance: well appearing, in no acute distress, alert Pysch: mood and affect broad and appropriate Eyes: conjunctiva pink and moist, no icterus, sclera white, non-injected Neck: Thyroid normal size and symmetric without palpable nodules, No adenopathy Lymph nodes: No cervical lymphadenopathy, No supraclavicular lymphadenopathy, No axillary lymphadenopathy., and No inguinal lymphadenopathy. Lungs: Lungs clear to auscultation. No wheezing, rhonchi, rales. Heart: RRR without murmur, gallop, or rubs. No ectopy Abdomen: Abdomen soft, non-tender. Bowel sounds normal. No masses, organomegaly Extremities: No deformities, edema, skin discoloration, clubbing or cyanosis. Good capillary refill. Health maintenance reviewed with patient: DTaP,Tdap,Td Vaccine(1 - Tdap) Never done Medicare Annual Wellness Visit due on 09/02/2023 Mammogram Screening due on 03/08/2025 Influenza Vaccine(1) due on 01/16/2025 Bone Density Screening due on 09/30/2025 Depression Screening due on 01/04/2026 Anxiety Screening due on 01/04/2026 Diabetes Screening due on 09/27/2026 Colorectal Cancer Screening due on 07/02/2028 Lipid Screening due on 09/27/2028 Advance Directive Discussion Completed RSV Vaccine Completed Shingrix Vaccine Completed Pneumococcal Vaccine: 50+ Completed Hepatitis C Screening Discontinued DATA REVIEWED: No new labs Assessment/Plan 1. Medicare annual wellness visit, subsequent (Z00.00) - Completed Medicare annual wellness visit. 2. Montez's esophagus without dysplasia (K22.70) - Recently diagnosed by Dr. King's office; currently on Protonix for silent reflux. - Advised to discontinue Fosamax due to risk of esophageal irritation and complications. - Educated on the irreversible nature of Montez's esophagus and the importance of avoiding medications that can worsen esophageal damage. - continue with recommendations by GI 3. Osteopenia, unspecified location (M85.80) - Last bone density scan was last year, showing osteopenia with higher hip fracture risk. - No history of bone fractures; does not smoke. - Advised to decrease alcohol intake to reduce risk of decreasing bone density. - Discussed importance of regular weight-bearing exercise. - Advised to discontinue Fosamax immediately due to new diagnosis of Montez's esophagus. - Ordered fasting blood work to assess suitability for infusion therapy: phosphorus, magnesium, calcium, kidney function, and vitamin D. - Plan to transition to infusion therapy for osteopenia management pending lab results and insurance coverage. - Discussed difference between oral and infusion therapy, emphasizing reduced risk of esophageal irritation with infusion. - Advised to maintain regular dental exams prior to starting infusion therapy. 4. Medication management (Z79.899) As above 5. Screening for depression (Z13.31) 6. Encounter for screening examination for other mental health and behavioral disorders (Z13.39) 7. Encounter for immunization (Z23) Tdap pharmacy information printed 8. Lipid screening (Z13.220) - Ordered fasting lipid panel as part of routine annual labs. Prescription instructions reviewed with patient as applicable. Potential red flag symptoms discussed with the patient. Reviewed appropriate action plan to take if red flag symptoms occur. Patient agreeable to treatment plan. Christina Martin APRN.CNP [1] Social History Tobacco Use Smoking status: Former Current packs/day: 0.00 Average packs/day: 1 pack/day for 11.0 years (11.0 ttl pk-yrs) Types: Cigarettes Start date: 05/18/1973 Quit date: 05/18/1984 Years since quittin.6 Smokeless tobacco: Never Vaping Use Vaping status: Never Used Substance Use Topics Alcohol use: Yes Comment: 1-2 glasses a few times a week Drug use: No documented in this encounter [facility] 01-04-2025 Note HNO ID: [id number] Author: CHRISTINA MARTIN APRN.CNP Service: ? Author Type: Nurse Practitioner Type: Progress Notes Filed: 01/04/2025 11:46 Note Text: Phyllis Sanchez is a 74 year old female here for a Medicare wellness visit. Medicare Health Risk Assessment General Health Very good Exercise: Minutes/Day 60 min Exercise: Days/Week 6 days Alcohol: Daily Use 2-3 times a week Alcohol: Drinks/Day 1 or 2 Alcohol: 6 or more drinks Never Feel off balance No Concerns: Teeth/Dentures No Concerns: Sexual function No Troubled by feelings None of the above Frequency: Eating healthy diet Several days ADLs requiring help None of the above Safety precautions in home/vehicle Decline Smoke, vape, chews tobacco No Difficulty hearing No Difficulty seeing No Current Providers Specialists: I have reviewed specialist-related care of the patient in the medical record. Gastroenterology: Dr. King Urogynecology: Dr. Helms Optometry: Dr. Gilbert Medical/Family history review Reviewed and updated problem list, medical/surgical/family/social history, medications, and allergies. Opioid use review Opioid Medications (last 90 days) No data to display Anxiety/Depression screening PHQ-2 Score: 0 (Lower risk for depression) ZURI-2 Score: 0 (Lower risk for anxiety) Recommendation: no further intervention at this time Cognitive screening Mini Cog Score: 5 Cognitive screening reviewed and No further action needed (score 3-5). Functional Observation Was the patient's Timed Up AND Go test unsteady or >= 12 seconds? No Advance Care Planning Patient was not able to provide a surrogate decision maker or written advance directives Measurements BP 121/71 Pulse 80 Resp 16 Ht 155.4 cm (5' 1.18) Wt 46.7 kg (103 lb) SpO2 96% BMI 19.35 kg/m? Vision Screening: Follows with optometry/ophthalmology Assessment/Plan Medicare annual wellness visit, subsequent (Z00.00) - Counseled on healthy diet and regular exercise - Fall avoidance information provided - Personalized prevention plan provided - Counseled patient on alcohol intake and associated health risks CC: Patient presents with: Medicare Wellness Exam: Annual Medicare wellness HPI Phyllis Sanchez is a 74 year old female who presents today for medicare wellness and follow up. Recording using [employer] software for draft documentation of the visit was discussed with the patient/authorized financial foundations representative; all questions welcomed and answered. Patient/authorized financial foundations representative agreed to proceed Montez's Esophagus: - Diagnosed recently by Dr. King's office. - Started on Protonix 2-2.5 weeks ago. - Denies heartburn; experiences morning phlegm and occasional coughing spells. - Coughing spells have decreased since starting Protonix. - Denies dyspnea, wheezing, heartburn, difficulty swallowing, nausea, vomiting, fever, or chills. Osteopenia: - Diagnosed with osteopenia; last bone density scan was last year. - Taking calcium and vitamin D supplements. - On Fosamax for a couple of years, with a brief interruption in prescription. - Denies any bone fractures. - No regular weight-bearing exercise routine. - Last bone density scan showed a higher risk for hip fracture. - Taking magnesium supplements. - Consumes alcohol; denies smoking. - Last dental exam in September, with no concerns or cavities. REVIEW OF SYSTEMS General: no fevers, no chills, no night sweats, no recurrent infections, no change in appetite, no change in energy, and no significant changes in weight Respiratory: no cough, no wheezing, no shortness of breath, no hemoptysis Cardiovascular: no chest pain, no chest pressure, no palpitations, and no swelling Endocrine: no fatigue, no weight gain, no weight loss, no polyuria, no polyphagia, and no polydipsia Neurologic: No headache, weakness, numbness, dizziness, memory loss, syncope. PAST MEDICAL HISTORY [...] suspension Anterior colporrhaphy Posterior colporrhaphy Perineorrhaphy Cystoscopy REPAIR OF NASAL SEPTUM 04/2024 S MENISCAL REPAIR OUT/IN Left ALLERGIES Patient has no known allergies. MEDICATIONS pantoprazole DR (PROTONIX) 20 mg tablet Take 20 mg by mouth once daily. estradiol (ESTRACE) 0.01 % (0.1 mg/gram) vaginal cream apply one gram or s (more content not included)... [facility] 01-03-2025 Note HNO ID: [id number] Author: TANYA PLASCENCIA MA Service: ? Author Type: Child Center Assistant Type: Progress Notes Filed: 01/03/2025 10:39 Note Text: POPULATION HEALTH NAVIGATION OUTREACH Action/ Patient returned My Chart and appointment already scheduled for Medicare Wellness. Reason for Outreach Returned Call/MyChart Patient Contacted: Spoke to patient/parent/or legal guardian Patient identified by name and date of : Yes Returned call/MyChart actions taken: MyChart message sent Navigation Signature: Tanya Plascencia MA January 03, 2025 10:38 AM [facility] 01-02-2025 Note HNO ID: [id number] Author: TANYA PLASCENCIA MA Service: ? Author Type: Child Center Assistant Type: Progress Notes Filed: 01/02/2025 15:09 Note Text: POPULATION HEALTH NAVIGATION OUTREACH Action/FYI Contacted patient to schedule HCC care gaps and health maintenance. 1st attempt: Left message with my direct number 2nd attempt: My Chart message sent Topic Due (Y or N) Comments Annual Wellness Exam Yes PCP Follow up No Colorectal Cancer Screening No A1C No HTN/Controlling BP No HCC No Updated appointment notes No Reason for Outreach Care Gap/HCC or Scheduling Wellness Visits Care Gaps due: Medicare Annual Wellness Visit Patient Contacted: Unable or unnecessary to reach patient: Left message [employer] message sent Navigation Signature: Tanya Plascencia MA January 02, 2025 3:09 PM [facility] 01-02-2025 History of Presen t illness Narrative POPULATION HEALTH NAVIGATION OUTREACH Action/FYI Contacted patient to schedule HCC care gaps and health maintenance. 1st attempt: Left message with my direct number 2nd attempt: My Chart message sent Topic Due (Y or N) Comments Annual Wellness Exam Yes PCP Follow up No Colorectal Cancer Screening No A1C No HTN/Controlling BP No HCC No Updated appointment notes No Reason for Outreach Care Gap/HCC or Scheduling Wellness Visits Care Gaps due: Medicare Annual Wellness Visit Patient Contacted: Unable or unnecessary to reach patient: Left message [employer] Signals message sent Navigation Signature: Tanya Plascencia MA January 02, 2025 3:09 PM documented in this encounter [facility] 01-02-2025 Note Patient Outreach (PALOMO TNAV) PHYLLIS SANCHEZ ([id number]) 1950 F Date Time Provider Department 01/02/25 TANYA PLASCENCIA NETNAV During your visit today, we recorded the following information about you: Tanya Plascencia MA 01/02/2025 3:09 PM Signed POPULATION HEALTH NAVIGATION OUTREACH Action/FYI Contacted patient to schedule HCC care gaps and health maintenance. 1st attempt: Left message with my direct number 2nd attempt: My Chart message sent Topic Due (Y or N) Comments Annual Wellness Exam Yes PCP Follow up No Colorectal Cancer Screening No A1C No HTN/Controlling BP No HCC No Updated appointment notes No Reason for Outreach Care Gap/HCC or Scheduling Wellness Visits Care Gaps due: Medicare Annual Wellness Visit Patient Contacted: Unable or unnecessary to reach patient: Left message [employer] message sent Navigation Signature: Tanya Plascencia MA January 02, 2025 3:09 PM Tanya Plascencia MA 01/03/2025 10:39 AM Signed POPULATION HEALTH NAVIGATION OUTREACH Action/FYI Patient returned My Chart and appointment already scheduled for Medicare Wellness. Reason for Outreach Returned Call/MyChart Patient Contacted: Spoke to patient/parent/or legal guardian Patient identified by name and date of : Yes Returned call/MyChart actions taken: [email or web address] message sent Navigation Signature: Tanya Plascencia MA January 03, 2025 10:38 AM Allergies As of Date: 01/02/2025 (No Known Allergies) Date Reviewed: 11/08/2024 Reviewed by: Jossie Rosales LPN - Fully Assessed Reason for Visit: Population Health Navigation Outreach [3910] Cmt: Jolon/Workbench/ACO Prescriptions as of 01/03/2025 - estradiol (ESTRACE) 0.01 % (0.1 mg/gram) [...] daily. Rinse mouth after use. - vit C/E/cuperic/zinc/lutein (PRESERVISION LUTEIN ORAL) Take by mouth twice daily. - cyanocobalamin (VITAMIN B-12) 1,000 mcg tab Take 1 tablet by mouth once daily. - calcium carbonate (CALCIUM 600) 600 mg calcium (1,500 mg) tab Take 0.5 tablets by mouth once daily. Problem List As Of Date 01/02/2025 Noted Resolved Chronic left-sided low back pain without sciati*05/22/2018 10/16/2023 DDD (degenerative disc disease), lumbar [M51.36*04/08/2021 Vitamin B12 deficiency [E53.8] 06/19/2021 Solitary pulmonary nodule [R91.1] 10/16/2023 Osteoporosis [M81.0] 10/16/2023 Hx of seizure disorder [Z86.69] 10/16/2023 Uterovaginal prolapse, incomplete [N81.2] 10/26/2023 Cystocele, midline [N81.11] 10/26/2023 Rectocele [N81.6] 10/26/2023 Encounter Status:Closed by TANYA PLASCENCIA on 01/02/25 [facility] 12-29-2024 Progress note Note Date/Time December 29, 2024 1:43pm [facility] [address] [place] [address] OFFICE VISIT Date of Service: 12/29/24 MR#: [id number] Acct: [id number] Name: PHYLLIS SANCHEZ Rep #: [id number] : 1950 Provider: NANO Pinon Age/Sex: 74/F Location: [facility] Status: Signed Intake Vital Signs 12/15/24 08:31 12/29/24 13:10 Height 5 ft 5 ft Weight: 103 lb 8 oz 104 lb 8 oz BMI 20.2 20.4 BP 151/84 H 145/86 H Respiration 16 14 Pulse 76 69 Temp 97.3 F L 98.4 F Temp Source Temporal Temporal Pulse Oximetry (%) 96 98 Oxygen Delivery Method room air room air Intake Visit Reasons: 2 W FU Chief Complaint: bowel changes and abdominal discomfort Buffet Attendant Required: No Accompanied by: Self Is patient in pain?: No Allergies No Known Allergies Allergy (Verified 12/29/24 13:04) Medications ?Medication ?Instructions ?Recorded ?Confirmed ?Type calcium carbonate (Calcium 500) 500 mg PO DAILY 12/29/24 History mecobalamin (vitamin B12) 5,000 5,000 mcg PO DAILY 09/0612/29/24 History mcg disintegrating tablet vitamins A,C,X-plkn-bzqadt 4,296 1 cap PO BID 12/19/21 12/29/24 History mcg-226 mg-90 mg capsule (PreserVision AREDS) alendronate 10 mg tablet 10 mg PO QWEEK 03/31/2412/16 History magnesium 200 mg tablet 200 mg PO DAILY 09/13/24 History wheat dextrin 3 gram/3.5 gram oral 1 packet PO QDAY 12/29/24 History powder packet (Benefiber Clear Sugar Free(dextrin)) pantoprazole 20 mg tablet,delayed 20 mg PO BID #180 ta bs 12/29/24 12/29/24 Rx release Have you fallen in the past year?: No PFSH Medical History Post-menopausal Arthritis PONV (postoperative nausea and vomiting) Leg cramps Wears glasses Alcohol use Seizures Former smoker Synovial cyst of popliteal space [Ho], right knee Tear of medial meniscus of right knee Osteoarthritis of right knee Right knee pain Surgical History History of colonoscopy History of rhinoplasty (05/03/24) History of partial hysterectomy (~10/2023) History of arthroplasty of right knee (~2021) History of hand surgery Family History Mother Hypertension CVA (cerebral vascular accident) Social History household members: spouse Smoking Status: Former smoker alcohol intake: current HPI HPI Chief Complaint: bowel changes and abdominal discomfort Details: OV 12/15/2024 74-year-old female presents for follow-up post procedure. 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 The patient denies heartburn, which is not uncommon, and will be started on a daily PPI medication to manage potential acid exposure. TissueCypher Montez's Esophagus test has been ordered to assess patient's risk of progression to high-grade dysplasia or esophageal cancer. Results will inform subsequent management plan. 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 The patient is on supplementation due to a known B12 deficiency, which is typical in atrophic gastritis, and will have levels rechecked. She also reports she is uncertain if she was fasting at time Gastrin was drawn and will have this repeated tomorrow. AMAG is associated with impaired iron and vitamin B12 absorption, increasing the risk for iron deficiency anemia and pernicious anemia. There is also an increased risk for type I gastric neuroendocrine tumors and, to a lesser extent, gastric adenocarcinoma, particularly in the presence of extensive intestinal metaplasia or concomitant?H. pylori?infection. Ongoing surveillance for micronutrient deficiencies and consideration of endoscopic follow-up are recommended per current guidelines. The persistent lower abdominal pain, described as stabbing and present for years, typically resolves after bowel movements. Previous treatments, including Linzess and dicyclomine, have not been effective, and further evaluation with anorectal manometry is planned to assess pelvic floor function. Patient Instructions: Repeat labs tomorrow - FASTING (Gastrin, B12) Ordered TissueCypher Montez's Esophagus test to assess patient's risk of progression to high-grade dysplasia or esophageal cancer. Results will inform subsequent management plan. - Start taking the prescribed heartburn medication daily after completion of repeat gastrin. - Continue B12 supplementation and have B12 levels rechecked. - Try the provided Linzess 72mcg samples and monitor for any side effects. - Schedule anorectal manometry to evaluate pelvic floor function. - FASTING GASTRIN 432 - this was prior to starting Pantoprazole - B12 normal - no Fe deficiency - she increased her fiber supplement to BID - Linzess cost $578 - having a BM improves the pain - usually has 2 BM a day - taking the Linzess samples - 1st day did make her have several BM - wakes every morning with pain at 0530 - has a BM and the pain resolves - can have uncontrolled coughing fits, not necessarily after a meal - increased phlegm in the morning - since starting pantoprazole 20mg daily 10d ago she has not noted any change COLON May 2024 revealed mild ileitis - biopsies unremarkable ROS Const Constitutional: No fatigue, fever(s) or [...] or other Musc Musculoskeletal: Positive for muscle cramps and Arthritis; No joint pain Skin Skin: Positive for itchy eyes (left arm); No yellowing of the eye Psych Psychiatric: No anxiety and No depression Endo Endocrine: No fatigue or weight change Aller/Imm Allergy/Immunologic: Positive for itchy eyes (left arm) Manuel/Lymp Hematologic/Lymphatic: No easy bleeding or easy bruising Exam Const General: cooperative, healthy appearing, no acute distress and well developed Nutritional Appearance: average body habitus and well nourished Orientation: alert and oriented x3 HENMT Head: normocephalic Ears: hearing grossly normal bilaterally Mouth: moist mucous membranes Teeth and gingiva: dentition normal Eyes Conjunctivae: conjunctivae normal Sclera: sclerae normal Neck Neck: normal visual inspection, full ROM and trachea midline Resp Effort & Inspection: normal respiratory effort, able to speak in complete sentences and symmetric chest movement GI Inspection: normal to inspection Auscultation: normal bowel sounds Palpation: soft and no hepatosplenomegaly Rectal Exam: deferred Skin General: no rashes or lesions noted and turgor normal Neuro General: patient alert and patient oriented x3 Cranial Nerves: other (CN's grossly intact, non-focal exam) Cognition: normal cognition Speech: speech normal Gait: normal gait Extrem General: normal to inspection (no edema noted) Psych Appearance: grossly normal and well kempt Affect: normal affect Attitude: cooperative Thought Process: normal Assessment and Plan Assessment and Plan (1) Constipation: Status: Acute Qualifiers: Constipation type: unspecified constipation type Qualified Code(s): K59.00 - Constipation, unspecified (2) RLQ abdominal pain: Status: Acute (3) Periumbilical pain: Status: Acute Orders: Orders Enterography Abd/Pel Today K59.00 - Constipation, unspecified, R10.31 - Right lower quadrant pain, R10.33 - Periumbilical pain Medications: Changed From pantoprazole take once daily 30 minutes before breakfast every morning 20 mg PO QDAY 90 tabs 1RF To pantoprazole take twice daily 30 minutes before breakfast and dinner 20 mg PO BID 180 tabs 1RF Discontinued linaclotide (Linzess) take once daily 30 minutes before first meal Discontinued Reason: Pt no longer taking 72 mcg PO QAM 30 caps 2RF Plan 74y/o female presents for follow-up of continued RLQ and periumbilical abdominal pain. Pain has been ongoing the past two years, intermittently severe, wakes here every day at 0530 and does not resolve until she has 1-2 BM. C/O feeling of a blockage. Denies any abdominal distension, N/V or weight loss. CT September 2024 revealed constipation, otherwise unremarkable. Denies any h/o bowel surgery or family h/o IBD. I have scheduled her for an MRE and she will follow-up in the office post to review results. Fasting gastrin 432 prior to starting PPI. 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 She remains on oral B12 supplementation and labs did not suggest Fe deficiency or B12 deficiency. She complains of increased phlegm in mornings and intermittent cough. Continues to deny any HB. She will increase pantoprazole to 20mg BID. Patient Instructions: Increase pantoprazole to 20mg BID Awaiting Tissue Cypher results MRE Coding Level of Care Code Off vis,est,level 3 Diagnoses Constipation, unspecified constipation type K59.00 Constipation type: unspecified constipation type RLQ abdominal pain R10.31 Periumbilical pain R10.33 Clinical Quality Measures Falls Risk Screening/Assistive Devices Have you fallen in the past year?: No Smoking Screening Smoking Status: Former smoker 12/29/24 1343 <Electronically signed by Melba MCGILL> Date _ Melba MCGILL Cosigner Signature: Date (if applicable) CC: ~ [facility] Work Phone: [phone]) [phone] Progress [facility] [address] [place] [address] OFFICE VISIT Date of Service: 12/29/24 MR#: [id number] Acct: [id number] Name: PHYLLIS SANCHEZ Rep #: [id number] : 1950 Provider: NANO Pinon Age/Sex: 74/F Location: [facility] Status: Signed Intake Vital Signs 12/15/24 08:31 12/29/24 13:10 Height 5 ft 5 ft Weight: 103 lb 8 oz 104 lb 8 oz BMI 20.2 20.4 BP 151/84 H 145/86 H Respiration 16 14 Pulse 76 69 Temp 97.3 F L 98.4 F Temp Source Temporal Temporal Pulse Oximetry (%) 96 98 Oxygen Delivery Method room air room air Intake Visit Reasons: 2 W FU Chief Complaint: bowel changes and abdominal discomfort Buffet Attendant Required: No Accompanied by: Self Is patient in pain?: No Allergies No Known Allergies Allergy (Verified 12/29/24 13:04) Medications ?Medication ?Instructions ?Recorded ?Confirmed ?Type calcium carbonate (Calcium 500) 500 mg PO DAILY 12/29/24 History mecobalamin (vitamin B12) 5,000 5,000 mcg PO DAILY 09/0612/29/24 History mcg disintegrating tablet vitamins A,C,I-lsth-uwaafl 4,296 1 cap PO BID 12/19/21 12/29/24 History mcg-226 mg-90 mg capsule (PreserVision AREDS) alendronate 10 mg tablet 10 mg PO QWEEK 03/31/2412/16 History magnesium 200 mg tablet 200 mg PO DAILY 09/13/24 History wheat dextrin 3 gram/3.5 gram oral 1 packet PO QDAY 12/29/24 History powder packet (Benefiber Clear Sugar Free(dextrin)) pantoprazole 20 mg tablet,delayed 20 mg PO BID #180 ta bs 12/29/24 12/29/24 Rx release Have you fallen in the past year?: No PFSH Medical History Post-menopausal Arthritis PONV (postoperative nausea and vomiting) Leg cramps Wears glasses Alcohol use Seizures Former smoker Synovial cyst of popliteal space [Ho], right knee Tear of medial meniscus of right knee Osteoarthritis of right knee Right knee pain Surgical History History of colonoscopy History of rhinoplasty (05/03/24) History of partial hysterectomy (~10/2023) History of arthroplasty of right knee (~2021) History of hand surgery Family History Mother Hypertension CVA (cerebral vascular accident) Social History household members: spouse Smoking Status: Former smoker alcohol intake: current HPI HPI Chief Complaint: bowel changes and abdominal discomfort Details: OV 12/15/2024 74-year-old female presents for follow-up post procedure. 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 The patient denies heartburn, which is not uncommon, and will be started on a daily PPI medication to manage potential acid exposure. TissueCypher Montez's Esophagus test has been orderedto assess patient's risk of progression to high-grade dysplasia or esophageal cancer. Results will inform subsequent management plan. 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 The patient is on supplementation due to a known B12 deficiency, which is typical in atrophic gastritis, and will have levels rechecked. She also reports she is uncertain if she was fastingat time Gastrin was drawn and will have this repeated tomorrow. AMAG is associated with impaired iron and vitamin B12 absorption, increasing the risk for iron deficiency anemia and pernicious anemia.There is also an increased risk for type I gastric neuroendocrine tumors and, to a lesser extent, gastric adenocarcinoma, particularly in the presence of extensive intestinal metaplasia or concomitant?H. pylori?infection. Ongoing surveillance for micronutrient deficiencies and consideration of endoscopic follow-up are recommended per current guidelines. The persistent lower abdominal pain, described as stabbing and present for years, typically resolves after bowel movements. Previous treatments, including Linzess and dicyclomine, have not been effective, and further evaluation with anorectal manometry is planned to assess pelvic floor function. Patient Instructions: Repeat labs tomorrow - FASTING (Gastrin, B12) Ordered TissueCypher Montez's Esophagus test to assess patient's risk of progression to high-gradedysplasia or esophageal cancer. Results will inform subsequent management plan. - Start taking the prescribed heartburn medication daily after completion of repeat gastrin. - Continue B12 supplementation and have B12 levels rechecked. - Try the provided Linzess 72mcg samples and monitor for any side effects. - Schedule anorectal manometry to evaluate pelvic floor function. - FASTING GASTRIN 432 - this was prior to starting Pantoprazole - B12 normal - no Fe deficiency - she increased her fiber supplement to BID - Linzess cost $578 - having a BM improves the pain - usually has 2 BM a day - taking the Linzess samples - 1st day did make her have several BM - wakes every morning with pain at 0530 - has a BM and the pain resolves - can have uncontrolled coughing fits, not necessarily after a meal - increased phlegm in the morning - since starting pantoprazole 20mg daily 10d ago she has not noted any change COLON May 2024 revealed mild ileitis - biopsies unremarkable ROS Const Constitutional: No fatigue, fever(s) or weight change ENT ENT: No difficulty swallowing Gastro GI: Positive for abdominal pain and bloating; No belching, change in bowel habits, change in stool character, coffee ground emesis, constipation,cramping, diarrhea, heartburn, difficulty swallowing, feeling full early, excessive flatus, incontinent of stools, Vomiting blood/hematemesis, Blood in stool, loose stools, Black,tarry stools, nausea/ dyspepsia, pain with swallowing, vomiting or other Musc Musculoskeletal: Positive for muscle cramps and Arthritis; No joint pain Skin Skin: Positive for itchy eyes (left arm); No yellowing of the eye Psych Psychiatric: No anxiety and No depression Endo Endocrine: No fatigue or weight change Aller/Imm Allergy/Immunologic: Positive for itchy eyes (left arm) Manuel/Lymp Hematologic/Lymphatic: No easy bleeding or easy bruising Exam Const General: cooperative, healthy appearing, no acute distress and well developed Nutritional Appearance: average body habitus and well nourished Orientation: alert and oriented x3 HENMT Head: normocephalic Ears: hearing grossly normal bilaterally Mouth: moist mucous membranes Teeth and gingiva: dentition normal Eyes Conjunctivae: conjunctivae normal Sclera: sclerae normal Neck Neck: normal visual inspection, full ROM and trachea midline Resp Effort & Inspection: normal respiratory effort, able to speak in complete sentences and symmetric chest movement GI Inspection: normal to inspection Auscultation: normal bowel sounds Palpation: soft and no hepatosplenomegaly Rectal Exam: deferred Skin General: no rashes or lesions noted and turgor normal Neuro General: patient alert and patient oriented x3 Cranial Nerves: other (CN's grossly intact, non-focal exam) Cognition: normal cognition Speech: speech normal Gait: normal gait Extrem General: normal to inspection (no edema noted) Psych Appearance: grossly normal and well kempt Affect: normal affect Attitude: cooperative Thought Process: normal Assessment and Plan Assessment and Plan (1) Constipation: Status: Acute Qualifiers: Constipation type: unspecified constipation type Qualified Code(s): K59.00 - Constipation, unspecified (2) RLQ abdominal pain: Status: Acute (3) Periumbilical pain: Status: Acute Orders: Orders Enterography Abd/Pel Today K59.00 - Constipation, unspecified, R10.31 - Right lower quadrant pain, R10.33 - Periumbilical pain Medications: Changed From pantoprazole take once daily 30 minutes before breakfast every morning 20 mg PO QDAY 90 tabs 1RF To pantoprazole take twice daily 30 minutes before breakfast and dinner 20 mg PO BID 180 tabs 1RF Discontinued linaclotide (Linzess) take once daily 30 minutes before first meal Discontinued Reason: Pt no longer taking 72 mcg PO QAM 30 caps 2RF Plan 74y/o female presents for follow-up of continued RLQ and periumbilical abdominal pain. Pain has been ongoing the past two years, intermittently severe, wakes here every day at 0530 and does not resolve until she has 1-2 BM. C/O feeling of a blockage. Denies any abdominal distension, N/V or weight loss. CT September 2024 revealed constipation, otherwise unremarkable. Denies any h/o bowel surgery or family h/o IBD. I have scheduled her for an MRE and she will follow-up in the office post to review results. Fasting gastrin 432 prior to starting PPI. 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 She remains on oral B12 supplementation and labs did not suggest Fe deficiency or B12 deficiency. She complains of increased phlegm in mornings and intermittent cough. Continues to deny any HB. She will increase pantoprazole to 20mg BID. Patient Instructions: Increase pantoprazole to 20mg BID Awaiting Tissue Cypher results MRE Coding Level of Care Code Off vis,est,level 3 Diagnoses Constipation, unspecified constipation type K59.00 Constipation type: unspecified constipation type RLQ abdominal pain R10.31 Periumbilical pain R10.33 Clinical Quality Measures Falls Risk Screening/Assistive Devices Have you fallen in the past year?: No Smoking Screening Smoking Status: Former smoker 12/29/24 1343 waqas SALESPERSON FURNITURE-C> Date _ Melba MCGILL Cosigner Signature: Date (if applicable) CC: ~ [facility]06-24-2025 History and physical note Author Dhiraj Friend [facility] Note Date/Time November 08, 2024 1:20 pm [facility] Medical Records Department [address] [place] [address] History & Physical Exam 11/08/24 1319 MR#: [id number] Acct: [id number] Name: PHYLLIS SANCHEZ Rep #:[id number] : 1950 73 From: Dhiraj King DO PCP: MEIR BURLESONC Status:[facility] Location: [place] [address] HPI - General General Date of Admission: [...] HB, indigestion, N/V - denies any dysphagia PFSH Medical History Post-menopausal Arthritis PONV (postoperative [...] DAILY 09/0604/22/22 History mcg disintegrating tablet vitamins A,C,J-olrn-djneau 4,296 1 cap PO BID 12/19/21 04/22/22 [...] CC: NANO MARTIN; Dhiraj King DO~ Signed [facility] Work Phone: 1(356) 195-442406-24-2025 Consult note [facility] Medical Records Department [address] [place] [address] Anesthesia Postop Eval I 11/08/24 1500 MR#: [id number] Acct: [id number] Name: PHYLLIS SANCHEZ Rep #:[id number] : 1950 73 From: David Jeffries PCP: NANO BURLESON Status:[facility] Y Race: C Location: [place] [address] Anesthesia: Postop Eval I Current Vital Signs [...] David Valadez Signature: Date CC: ~ Signed [facility]06-24-2025 Procedure note [facility] Medical Records Department [address] [place] [address] EGD Report MR#: [id number] Acct: [id number] Name: PHYLLIS SANCHEZ Rep #:[id number] : 1950 73 From: Dhiraj King DO PCP: NANO BURLESON Status:[facility] Patient Name: Phyllis Sacnhez Procedure Date: 11/08/2024 2:38 PM Date of [...] pathology results. Procedure Code(s): --- Professional --- 27566, Small intestinal endoscopy, enteroscopy beyond second portion of duodenum, not including ileum; with biopsy, single or multiple CPT copyright 2021 [employer]. All rights reserved. The codes documented in this report are preliminary and upon magazine keeper review may be revised to meet current compliance requirements. Dhiraj King DO 11/08/2024 2:57:35 PM This report has been signed electronically. Number of Addenda: 0 Note Initiated On: 11/08/2024 2:38 PM 11/08/24 1457 Date _ Dhiraj Bartlettigner Signature: Date (if indicated) CC: NANO MARTIN; Dhiraj King DO ~ Date Dictated: 11/08/24 1438 Date Transcribed: Laboratory Chemist: RF Signed [facility]06-24-2025 Procedure note [facility] Medical Records Department [address] [place] [address] Operative Report - CC Letter MR#: [id number] Acct: [id number] Name: DANIELPHYLLIS Bowling Rep #:[id number] : 1950 73 From: Dhiraj King DO PCP: NANO BURLESON Status:[facility] 11/08/2024 Nano Burleson Re : Upper GI endoscopy procedure for [...] This report has been signed electronically. 11/08/24 1457 Date _ Dhiraj King DO Cosigner Signature: Date (if indicated) CC: SALESPERSON FURNITURE-C CHRISTINA MARTIN; Dhiraj King DO ~ Date Dictated: 11/08/24 1438 Date Transcribed: Laboratory Chemist: RF Signed [facility]06-24-2025 Consult note [facility] Medical Records Department [address] [place] [address] Pre-Anesthesia Evaluation 11/08/24 1413 MR#: [id number] Acct: [id number] Name: PHYLLIS SANCHEZ Rep #:[id number] : 1950 73 From: Rodolfo Huffman MD PCP: NANO BURLESON Status:REG [facility] Y Race: C Location: [place] [address] ASA Classification* ASA Classification ASA Classification: 2 [...] EGD Anesthesia History Anesthesia History - hat and cap parts cutter hand: Anesthesia History - hat and cap parts cutter hand Hx Hospitalization No 11/03/24 13:18 Any Problems [...] Oral intake: Last Oral Intake NPO since :45 11/08/24 13:42 Meds taken in AM with sips of No 11/08/24 13:42 water? Meds patient instructed to take am of surgery Any additional information?: Yes NPO since: (Patient black coffee at 9:45 AM.) Meds taken in AM with sips of water?: No PONV PONV - hat and cap parts cutter hand: PONV - hat and cap parts cutter hand Female Yes 11/03/24 13:18 HX of Motion [...] 13:42 Respiratory Assessment Respiratory Assessment - hat and cap parts cutter hand: Respiratory Tract Infection Hx - hat and cap parts cutter hand Hx Respiratory Tract Infection No 11/03/24 13:18 STOP Sleep Apnea STOP Sleep Apnea - hat and cap parts cutter hand: STOP Sleep Apnea - hat and cap parts cutter hand Hx Hypertension No 11/03/24 13:18 Hx Sleep [...] Use History Tobacco Use History - hat and cap parts cutter hand: Tobacco Use History - hat and cap parts cutter hand Tobacco Use Smoking Status Former smoker 11/03/24 13:18 Hx Tobacco Use Yes 11/03/24 13:18 Years Smoking Packs Smoked per Day Smoking Cessation Date was No - quit smoking greater 11/03/24 13:18 within the last 15 years than 15 years ago Hx Smoking Cessation Date 05/18/79 11/03/24 13:18 Hx Smoking Cessation Counseling Hematologic Medial History 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 Hx of Blood Transfusion No 11/03/24 13:18 [...] unrespo /Reproduction History /Reproductive History - hat and cap parts cutter hand: /Reproductive Hx- hat and cap parts cutter hand Hx Now Gestational Age (in weeks): EDC: [...] DAILY 09/0604/22/22 History mcg disintegrating tablet vitamins A,C,C-xwlp-aucbvi 4,296 1 cap PO BID 12/19/21 04/22/22 [...] MD Cosigner Signature: Date CC: ~ Signed [facility]06-24-2025 History and physical note [facility] Medical Records Department [address] [place] [address] History & Physical Exam 11/08/24 1319 MR#: [id number] Acct: [id number] Name: PHYLLIS SANCHEZ Rep #:[id number] : 1950 73 From: Dhiraj Friend DO PCP: CHRISTINA MARTIN, SALESPERSON FURNITURE-C Status:[facility] Location: [place] [address] HPI - General General Date of Admission: [...] leakage 2023 - UroGYN Dr. Manzanares - [facility] - she reports about 10 days [...] HB, indigestion, N/V - denies any dysphagia PFS Medical History Post-menopausal Arthritis PONV (postoperative nausea [...] DAILY 09/0604/22/22 History mcg disintegrating tablet vitamins A,C,Q-psuw-faobpj 4,296 1 cap PO BID 12/19/21 04/22/22 [...] CC: NANO MARTIN; Dhiraj King DO~ Signed [facility]06-24-2025 [facility] Medical Records Department [address] [place] [address] History Physical Exam 11/08/24 1319 MR#: [id number] Acct: [id number] Name: PHYLLIS SANCHEZ Rep #: [id number] : 1950 73 From: Dhiraj Friend DO PCP: CHRISTINA MARTIN, SALESPERSON FURNITURE-C Status:[facility] Location: [place] [address] HPI - General General Date of Admission: [...] leakage 2023 - UroGYN Dr. Manzanares - [facility] - she reports about 10 days ago [...] HB, indigestion, N/V - denies any dysphagia PFSH Medical History Post-menopausal Arthritis PONV (postoperative [...] DAILY 12/19/21 History mcg disintegrating tablet vitamins A,C,X-jszk-njbcuz 4,296 1 cap PO BID 12/19/21 04/22/22 [...] or weight loss Gastrointe (more content not included)...[facility]06-24-2025 History of Present illness Narrative* Dung Holman APRN.CNP - 11/08/2024 8:30 AM EDT Female Pelvic [...] the PFSH obtained by others. Dung Holman APRN.SUSPENDER MAKER Pbx Installer offered: Patient declines. SENSITIVE EXAM: The sensitive examination was discussed with the Patient or Patient's Authorized Dialysis Technician. As applicable, any other physician, advance practice provider, medical student, or other health professional student that will be observing or involved in the sensitive examination for educational or training purposes was discussed with the Patient or Authorized Dialysis Technician. The Patient or Authorized Dialysis Technician has agreed to proceed with the sensitive [...] which included preparing to see the patient, iwkt-zf-uzlj patient care, completing clinical documentation, performing a medically appropriate examination, and counseling and educating the patient/family/caregiver. Dung Holman APRN.RAS documented in this encounterHenry [facility]06-[facility]-2025 NoteHNO ID: [id number] Author: DUNG HOLMAN APRN.RAS Service: ? Author [...] have confirmed and edited as necessary, the COUNTS INCLUDE [facility] BEDS AT THE [facility] obtained by others. Dung Holman APRN.SUSPENDER MAKER Pbx Installer offered: Patient declines. SENSITIVE EXAM: The sensitive examination was discussed with the Patient or Patient's Authorized Dialysis Technician. As applicable, any other physician, advance practice provider, medical student, or other health professional student that will be observing or involved in the sensitive examination for educational or training purposes was discussed with the Patient or Authorized Dialysis Technician. The Patient or Authorized Dialysis Technician has agreed to proceed with the sensitive [...] which included preparing to see the patient, izjh-tn-vvuv patient care, completing clinical documentation, performing a medically appropriate examination, and counseling and educating the patient/family/caregiver. Dung Holman APRN.[facility]06-09-2025 Evaluation note* Diagnosis Onset Date Resolution Status Admit Date Abdominal pain acute October 24, 2024 8:27am Abnormal CT scan, bladder acute October 24, 2024 8:27am Constipation acute October 24 8:27am Abdominal pain acute November 08, 2024 1:05pm Abdominal pain acute December 15, 2024 8:21am Atrophic gastritis acute November 172024 8:21am B12 deficiency acute December 15, 2024 8:21am Barretts esophagus acute November 172024 8:21am Constipation acute December 29, 2024 12:54pm Periumbilical pain acute December 29, 2024 12:54pm RLQ abdominal pain acute December 29, 2024 12:54pm Atrophic gastritis acute 2024 8:57am Barretts esophagus acute 2024 8:57am Constipation acute February 022024 8:57am Dyssynergic defecation acute Se ptember 2024 8:57am Periumbilical pain acute 2024 8:57am [facility] Work Phone: 1(639) 901-223906-01-2025 Radiology Diagnostic study note [facility] Imaging Services [address] [place], [place] [address] Abdomen/Pelvis WITH Contrast MR#: [id number] Acct: [id number] Name: PHYLLIS SANCHEZ Rep #: [id number] : 1950 F 73 From: Hiram Lawler MD PCP: CHRISTINA MARTIN SALESPERSON FURNITURE-C Status: REG CLI Study:Abdomen/Pelvis WITH Contrast Date of Ex am: 10/14/24 Exam# [id number] Ordering Dr: Melba Pinon SALESPERSON FURNITURE-C PROCEDURE: ABDOMEN/PELVIS WITH CONTRAST 10/14/2024 REASON FOR [...] or gastritis. Constipation. Reading Location: [place] [address] CC: NANO MARTIN; NANO Pinon ~ Laboratory Chemist: Signed [facility]04-29-2025 Evaluation note* Diagnosis Onset Date Resolution Status Admit Date Abdominal pain acute August 8:21am Constipation acute September 13, 2024 8:21am Abdominal pain acute October 24, 2024 8:27am Abnormal CT scan, bladder acute October 24, 2024 8:27am Constipation acute October 24 8:27am Abdominal pain acute November 08, 2024 1:05pm [facility] Work Phone: 1(411) 984-918004-29-2025 Evaluation note* Diagnosis Onset Date Resolution Status Admit Date Abdominal pain acute August 8:21am Constipation acute September 13, 2024 8:21am Abdominal pain acute October 24, 2024 8:27am Abnormal CT scan, bladder acute October 24, 2024 8:27am Constipation acute October 24 8:27am Abdominal pain acute November 08, 2024 1:05pm Abdominal pain acute December 15, 2024 8:21am Atrophic gastritis acute November 172024 8:21am [facility] Work Phone: 1(144) 541-616104-29-2025 Evaluation note* Diagnosis Onset Date Resolution Status Admit Date Abdominal pain acute August 8:21am Constipation acute September 13, 2024 8:21am Abdominal pain acute October 24, 2024 8:27am Abnormal CT scan, bladder acute October 24, 2024 8:27am Constipation acute October 24 8:27am Abdominal pain acute November 08, 2024 1:05pm Abdominal pain acute December 15, 2024 8:21am Atrophic gastritis acute November 172024 8:21am B12 deficiency acute December 15, 2024 8:21am Barretts esophagus acute November 172024 8:21am [facility] Work Phone: 1(467) 263-168804-29-2025 Evaluation note* Diagnosis Onset Date Resolution Status Admit Date Abdominal pain acute August 8:21am Constipation acute September 13, 2024 8:21am Abdominal pain acute October 24, 2024 8:27am Abnormal CT scan, bladder acute October 24, 2024 8:27am Constipation acute October 24 8:27am Abdominal pain acute November 08, 2024 1:05pm Abdominal pain acute December 15, 2024 8:21am Atrophic gastritis acute November 172024 8:21am B12 deficiency acute December 15, 2024 8:21am Barretts esophagus acute November 172024 8:21am Constipation acute December 29, 2024 12:54pm Periumbilical pain acute December 29, 2024 12:54pm RLQ abdominal pain acute December 29, 2024 12:54pm [facility] Work Phone: 1(500) 955-890502-17-2025 Evaluation note* Diagnosis Onset Date Resolution Status Admit Date Abdominal pain acute June 182024 12:52pm Constipation acute June 12:52pm Abdominal pain acute August 8:21am Constipation acute September 13, 2024 8:21am [facility] Work Phone: 1(161) 431-590601-15-2025 [facility] Medical Records Department [address] [place] [address] History Physical Exam 06/01/24 0656 MR#: [id number] Acct: [id number] Name: PHYLLIS SANCHEZ Rep #: [id number] : 1950 73 From: Dhiraj Friend DO PCP: MEIR BURLESONC Status:[facility] Location: [place] [address] HPI - General General Date of Admission: [...] - she reports drinking plenty of water PFS Medical History Post-menopausal Arthritis PONV (postoperative nausea [...] 12/19/21 04/22/22 History mcg disintegrating tablet vitamins A,C,V-rynr-jgnywu 4,296 1 cap PO BID 12/19/21 04/22/22 [...] (1) Constipation: QUALIFIERS: Constipation (more content not included)...[facility]11-14-2024 NoteHNO ID: [id number] Author: CHRISTINA MARTIN APRN.SUSPENDER MAKER Service: ? Author Type: Nurse Practitioner Type: [...] Discontinued DATA REVIEWED: Most recent labs from [facility] ASSESSMENT/PLAN: 1. Elevated blood pressure reading - [...] Potential red flag sympt (more content not included)...[facility]11-14-2024 History of Present illness Narrative* Christina Martin APRN.SUSPENDER MAKER - 03/31/2024 7:21 AM EST CC: Patient [...] Discontinued DATA REVIEWED: Most recent labs from [facility] ASSESSMENT/PLAN: 1. Elevated blood pressure reading - [...] plan. Christina Martin APRN.RAS documented in this encounterHenry [facility]11-06-2024 Telephone encounter Note * Telephone Encounter [...] Tomas RN March 23, 2024 3:04 PM [facility]11-06-20[facility] Miscellaneous Notes* Telephone Encounter - Elizabeth [...] 23, 2024 3:04 PM documented in this encounterHenry [facility] Hospital10-22-2024 History of Present illness Narrative* Waleska [...] PATIENT PRESENTS WITH AN IMPLANTABLE OR ATTACHED RADIO BOARD OPERATOR: No RADIOLOGY DEPARTMENT: Mammography PERIPHERAL IV DATA: Not applicable SIGNED BY: Silvestre Nicholas March 08, 2024 8:15 AM documented in this encounterHenry County Hospital10-22-2024 NoteHNO ID: [id number] Author: WALESKA KELLY Mammo Tech Service: ? Author Type: Mattress Spring Encaser Type: Progress Notes Filed: 03/08/2024 08:15 Note [...] PATIENT PRESENTS WITH AN IMPLANTABLE OR ATTACHED RADIO BOARD OPERATOR: No RADIOLOGY DEPARTMENT: Mammography PERIPHERAL IV DATA: Not applicable SIGNED BY: Silvestre Nicholas March 08, 2024 8:15 [facility]10-07-2024 NoteHNO ID: [id number] Author: MICHAEL MANZANARES MD Service: ? Author [...] There were no complications. Complications: none LOT: [id number] Exp: 2026-04-16 Procedure Summary: Patient tolerated procedure well. Medications: Prophylactic antibiotics Plan: Follow up 1 month for postop check via nurse phone call. If she's doing well plan for 1y postop in October 2024. If not can follow up for another visit. Michael Manzanares [facility]10-07-2024 History of Present illness Narrative* Michael Manzanares MD - 02/22/2024 2:06 PM EDT Phyllis Vladimir Sanchez presents today for a periurethral bulking [...] There were no complications. Complications: none LOT: [id number] Exp: 2026-04-16 Procedure Summary: Patient tolerated procedure well. Medications: Prophylactic antibiotics Plan: Follow up 1 month for postop check via nurse phone call. If she's doing well plan for 1y postop in October 2024. If not can follow up for another visit. Michael Manzanares MD documented in this encounterHenry [facility] Hospital09-20-2024 Telephone encounter Note * Telephone Encounter [...] Tomas RN February 05, 2024 3:41 PM [facility]09-20-20[facility] Miscellaneous Notes* Telephone Encounter - Elizabeth [...] 05, 2024 3:41 PM documented in this encounterHenry [facility] Hospital09-20-2024 History of Present illness Narrative* Michael [...] discussed with the Patient or Patient's Authorized Dialysis Technician. Asapplicable, any other physician, advance practice provider, medical student, or other health professional student that will be observing or involved in the sensitive examination for educational or training purposes was discussed with the Patient or Authorized Dialysis Technician. The Patient or Authorized Dialysis Technician has agreed to proceed with the sensitive examination. (Sensitive examination includes inspection and/or palpation of the breasts, pelvis, prostate and anorectal regions) Pbx Installer declined. OBJECTIVE: BP 130/82 Ht 154.9 cm [...] Bulkamid Michael Manzanares MD documented in this encounterHenry County Hospital09-20-2024 NoteHNO ID: [id number] Author: MICHAEL MANZANARES MD Service: ? Author [...] discussed with the Patient or Patient's Authorized Dialysis Technician. As applicable, any other physician, advance practice provider, medical student, or other health professional student that will be observing or involved in the sensitive examination for educational or training purposes was discussed with the Patient or Authorized Dialysis Technician. The Patient or Authorized Dialysis Technician has agreed to proceed with the sensitive examination. (Sensitive examination includes inspection and/or palpation of the breasts, pelvis, prostate and anorectal regions) Pbx Installer declined. OBJECTIVE: BP 130/82 Ht 154.9 cm [...] the procedure. F/u for Bulkamid Michael Manzanares [facility]09-12-2024 Telephone encounter Note* Telephone Encounter - [...] Navarrete RN January 28, 2024 9:17 AM [facility]09-12-2024 Miscellaneous Notes* Telephone Encounter - Jolanta [...] 28, 2024 9:17 AM documented in this encounterHenry County Hospital07-17-2024 Instructions* Patient Instructions* Michael Manzanares MD - 12/02/2023 10:53 AM EDT If you still have significant leaking, before next visit please perform pyridium pad test: Get AZO (pyridium, aka phenozpyradine) tablets at [facility] Take 2 tabs Over the course of several hours (6-12 hours) - if there is orange on the pad, let me know documented in this encounterHenry County Hospital07-17-2024 History of Present illness Narrative* Michael [...] you received about pain medications helpful? Yes Pbx Installer offered, exam chaperoned by Tanya Kamara RN [...] exams. Michael Manzanares MD documented in this encounterHenry [facility] Hospital06-14-2024 History of Present illness Narrative* Jaye Randolph RN - 10/30/2023 10:17 AM EDT Patient here [...] 10/30/2023 Jaye Randolph RN documented in this encounterHenry [facility] Hospital06-11-2024 NoteHNO ID: [id number] Author: ZACHARY NGUYEN MD Service: ? Author Type: Fellow Type: Progress Notes Filed: 10/27/2023 12:03 Note Text: INTRAOPERATIVE RESEARCH NOTE: Study: Platelet-Rich Plasma (PRP) Injections in Patients Desiring Uterosacral Ligament Suspension Surgery for Prolapse: A Feasibility Study IRB # [id number] Patient STUDY ID NUMBER: 12 Date of Surgery: 10/27/2023 Completed Research Consent in Docusign Confirmed: Yes Research Study Personnel Name: Zachary Nguyen MD PRP information: Amount of blood volume collected from patient: 10 mL Total amount of PRP supernatant available after centrifuge: 6 mL Two mL of PRP supernatant injected into the RIGHT uterosacral ligament: Yes Two mL of PRP supernatant injected into the LEFT uterosacral ligament: Yes RegenKit: Lot Number: [id number] Expiration date: 2025-02-24 Zachary Nguyen [facility]2024 NoteHNO ID: [id number] Author: DIANE REYES APRN.CRNA Service: Anesthesiology Author Type: Nurse Line Assembler Aircraft Type: Anesthesia Procedure Notes Filed: 10/27/2023 08:55 [...] Imaging Guidance Used: No SIGNATURE: Diane Reyes APRN.ACID CONDITIONING WORKER PATIENT NAME: Phyllis Sanchez DATE: October 27, 2023 TIME: 8:54 AM CSN: [id number] NoteHNO ID: [id number] Author: DIANE REYES APRN.ACID CONDITIONING WORKER Service: Anesthesiology Author Type: Nurse Line Assembler Aircraft Type: Anesthesia Procedure Notes Filed: 10/27/2023 08:14 Note Text: ANESTHESIOLOGY PROCEDURE NOTE Airway General Information Procedure Start Time/Medication Administration: 10/27/2023 7:45 AM Procedure End Time: 10/27/2023 7:48 AM Patient location during procedure: OR Timeout Performed Pre-procedure: timeout performed Patient identity confirmed: arm band and patient Staffing ACID CONDITIONING WORKER: Diane Reyes APRN.ACID CONDITIONING WORKER Performed by: ALVIN Indications and Patient Condition Indications for airway management: anesthesia Preoxygenated: yes anesthesia circuit Patient position: sniffing Method: sleep Difficult Mask: No Final Airway Details Final airway type: endotracheal airway Final Endotracheal Airway: ETT Cuffed: yes Successful intubation technique: video laryngoscopy Devices used: Digital Air Strike Endotracheal tube insertion site: oral Blade size: #3 ETT size (mm): 6.5 Measured from: lips Measurement (cm): 20 Placement verified by: chest auscultation and capnometry Cormack-Lehane Classification: grade I - full view of glottis Number of attempts at approach: 1 Airway not difficult SIGNATURE: Diane Reyes APRN.ACID CONDITIONING WORKER PATIENT NAME: Phyllis Sanchez DATE: October 27, 2023 TIME: 8:14 AM CSN: [id number] Instructions* Patient Instructions* Maria Fernanda Miller APRN.SUSPENDER MAKER - 10/16/2023 1:09 PM EDT PATIENT PREOPERATIVE INSTRUCTIONS Michael Manzanares MD has scheduled you for your procedure at this surgery center: [facility]: [phone] -- [address] [address]. Please read below carefully for your personalized [...] Procedures: - YOU MUST HAVE A RESPONSIBLE WORM RAISER TAKE YOU HOME. A GREEN MEAT GRADER OR HUMAN MACHINE INTERFACE ENGINEER CANNOT BE MADE A RESPONSIBLE WORM RAISER. - We recommend that a responsible person stays with you overnight to take care of you. - You cannot stay in a hotel alone after outpatient surgery. You will not be permitted to have yoursurgery, if you do not have someone to take care of you. Arrival Time for Surgery: -You will receive a call from [facility] the afternoon before surgery after 2:30 pm(or Thursday for Thursday surgery) for a scheduled arrival time. - If you have not heard by 4 pm, please contact [facility] at [phone]. Please be aware that emergency situations arise, which may delay or change your surgical time. If this happens, we will notify you as soon as possible and regret any inconvenience. If you already have an Advance Directive, please fax a copy to [phone] or email to for it to be [...] Maria Fernanda Miller APRN.CNP documented in this encounterHenry County Hospital05-31-2024 History and physical note * Maria [...] hx during her teens, no issues since [place] Activity Status Index: METS: Climb a flight [...] large neck Non-male patient STOP-Bang Score: 1 [id number] Score: Age: 65-74 Sex: female CHF history: No Hypertension history: No Vascular disease history: No Diabetes history: No [id number] Score: ARISCAT Score: Age: 51-80 Preoperative SpO2: [...] and ovarian cancer. 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 Neurological: Positive for: seizures (remote childhood, no issues since). Negative for: cerebral palsy, WASTE WATER TREATMENT PLANT OPERATOR tumor, headaches, hemiplegia, multiple sclerosis, Parkinson's disease, peripheral neuropathy and strokes. Respiratory: Former smoker 1ppd/5 years, in her 20's. No history of current cough or dyspnea, or pneumonia in the past 6 weeks. No history of respiratory/pulmonary symptoms or problems. Cardiovascular: No history of HTN requiring medication, no history of angina, CHF, UT, cardiac surgery or stents. Denies rest pain, gangrene or revascularization/amputation for PVD. No history of cardiovascular symptoms or problems. GI: No history of GI symptoms or problems. No history of esophageal varices, recent ascites, or ETOH greater than 2 drinks per day. : See HPI. TALLOW REFINER: See HPI. Endocrine: No history of diabetes. [...] or any previous visit (from the past 60 hour(s)). No results found for this or any previous visit (from the past 12816 hour(s)). Instructions Given to Patient: Instructions located in the after visit summary. Patient given verbal and written preop instructions and voices comprehension and compliance. SIGNATURE: Maria Fernanda Miller APRN.CNP PATIENT NAME: Phyllis Sanchez DATE: October 16, 2023 TIME: 1:06 PM PAGER/CONTACT #: [facility] History and physical note* Maria Fernanda [...] large neck Non-male patient STOP-Bang Score: 1 [id number] Score: Age: 65-74 Sex: female CHF history: No Hypertension history: No Vascular disease history: No Diabetes history: No [id number] Score: ARISCAT Score: Age: 51-80 Preoperative SpO2: [...] and ovarian cancer. 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 Neurological: Positive for: seizures (remote childhood, no issues since). Negative for: cerebral palsy, WASTE WATER TREATMENT PLANT OPERATOR tumor, headaches, hemiplegia, multiple sclerosis, Parkinson's disease, peripheral neuropathy and strokes. Respiratory: Former smoker 1ppd/5 years, in her 20's. No history of current cough or dyspnea, or pneumonia in the past 6 weeks. No history of respiratory/pulmonary symptoms or problems. Cardiovascular: No history of HTN requiring medication, no history of angina, CHF, UT, cardiac surgery or stents. Denies rest pain, gangrene or revascularization/amputation for PVD. No history of cardiovascular symptoms or problems. GI: No history of GI symptoms or problems. No history of esophageal varices, recent ascites, or ETOH greater than 2 drinks per day. : See HPI. TALLOW REFINER: See HPI. Endocrine: No history of diabetes. [...] or any previous visit (from the past 96914 hour(s)). Instructions Given to Patient: Instructions located in the after visit summary. Patient given verbal and written preop instructions and voices comprehension and compliance. SIGNATURE: Maria Fernanda Miller APRN.CNP PATIENT NAME: Phyllis Sanchez DATE: October 16, 2023 TIME: 1:06 PM PAGER/CONTACT #: documented in this encounterHenry County Hospital05-28-2024 History of Present illness Narrative* Lesia Steele E - 10/13/2023 1:00 PM EDT DATE OF SERVICE: 10/13/2023 PROBLEM: Phyllis Sanchez presents for pre-op teaching. PRE-OP DIAGNOSIS: uterovaginal prolapse, incomplete SCHEDULED SURGERY AND DATE: 10/27/23 at [facility]: Total vaginal hysterectomy Possible bilateral salpingo-oophorectomy [...] patient have an advanced directive: No Does [facility] have a copy of the patient's [...] prescribed by anesthesia, internal medicine, surgeon, or SALESPERSON FURNITURE Stop NSAIDs, Aspirin (ASA), vitamins, herbal supplements, [...] jewelry, body piercing, makeup, contacts, lotions, nail taiwanese on fingers, or anything in hair on arrival to surgery Wear low healed shoes and loose fitting clothing Leave all valuables at home or with a family member Directions to [facility] Parking/parking validation on the day prior [...] - IV pain medication after surgery, IV ATTENDANCE CLERK if ordered by MD, discharged home with [...] patient, if after hours patientinstructed to call snuff packing machine operator and ask for sonar technician urogynecologist PAT program offered to patient: No Additional teaching as indicated by patient/family learning needs. PATIENT LEARNING EVALUATION & FOLLOW UP PLAN: Patient and/or family express understanding of upcoming surgery, pre-operative preparation, the operative process, and post-operative instructions. Follow up plan: Complete - No need for follow-up Patient has a post-op appointment scheduled: Yes Referral (recommentation): None Educator: Lesia Steele [facility] documented in this encounterHenry County Hospital05-28-2024 Instructions* Patient Instructions* Lesia tSeele - 10/13/2023 8:18 AM EDT Images from [...] not wear jewelry, body piercing(s), makeup, nail taiwanese, hairpins, or contacts on the day of [...] expanding your lungs while in the hospital. [facility] TEAM At the [facility], we have a multidisciplinary team of caregivers that includes fellows, residents, nurse practitioners (clay dry press mixer operator), physician assistants (PAs), clinical nurse specialists (CNSs), nurses, medical assistants (MAs), patient care nursing assistants (PCNAs), social workers, child support case officer and many others. We all have different [...] SURGERY If you are having [facility] at [facility]: On the day before your surgery, you must call [phone] to find out your surgery arrival time. If you are having surgery at a [facility] ([facility], [facility]): You will receive a call the day before surgery to give you your surgery arrival time. THE DAY OF SURGERY/CHECK IN Surgery [place] [address] or operations plant attendant parking available DESK J1-1 A map is located in Your Surgical Guide Book. The online version of the surgical guide book can be found at: [email or web address] [facility] [address] [place], [place] Parking garage connected to hospital or operations plant attendant Registration desk, first floor, main lobby [facility] [address] [place], [place] Parking lot in front of building [address] (elevator to lower level) [facility] [address] [place], [place] Parking garage next to hospital or operations plant attendant Atrium, W1 Surgical Waiting Desk [facility] [address] [place], [place] Parking garage across from main entrance. Main entrance [facility] [address], [place] Park in the back of the [...] to dispose of unused medications at three [facility] locations: [facility] pharmacy, [facility] pharmacy, and the [facility] for [facility] (inside the parking garage on the [...] answering service to speak with the doctor sonar technician. Press Option 3 for specialty services and speak with the snuff packing machine operator. Dr. Michael Manzanares [place] Office [place] [facility] Trina Mercado, SUSPENDER MAKER Maranina Landeros, SUSPENDER MAKER Dung Holman, SUSPENDER MAKER Mavis Garcia, SUSPENDER MAKER Kyra Kamara, SUSPENDER MAKER Stephany Gayle, SUSPENDER MAKER Please DO NOT use MyChart for post-surgery concerns. documented in this encounterHenry County Hospital05-16-2024 History of Present illness Narrative* Tyrell [...] PATIENT PRESENTS WITH AN IMPLANTABLE OR ATTACHED RADIO BOARD OPERATOR: No RADIOLOGY DEPARTMENT: Bone Density PERIPHERAL IV DATA: Not applicable SIGNED BY: RT Jared(R) October 01, 2023 7:49 AM documented in this encounterHenry County Hospital05-13-2024 Telephone encounter Note * Telephone Encounter - Zachary Nguyen MD - 09/28/2023 4:16 PM EDT [facility] PLUG [facility] I IRB#: [id number] Study name: Platelet-Rich Plasma (PRP) [...] REDCap survey to complete. Zachary Nguyen MD [facility] Work Phone: 1(160) 227-414705-13-2024 Miscellaneous Notes* Telephone Encounter - Zachary Nguyen MD - 09/28/2023 4:16 PM EDT [facility] PL[facility] IRB#: [id number] Study name: Platelet-Rich Plasma (PRP) [...] Nguyen MD - 09/28/2023 2:02 PM EDT [facility] IRB#: [id number] Study name: Platelet-Rich Plasma (PRP) [...] study. Zachary Nguyen MD documented in this encounterHenry County Hospital05-13-2024 Telephone encounter Note * Telephone Encounter - Zachary Nguyen MD - 09/28/2023 2:02 PM EDT [facility] IRB#: [id number] Study name: Platelet-Rich [...] questions about the study. Zachary Nguyen MD [facility]05-13-2024 Instructions* Patient Instructions* Christina Martin APRN.SUSPENDER MAKER - 09/28/2023 8:02 AM EDT BONE MINERAL [...] your usual activities immediately. documented in this encounterHenry County Hospital05-13-2024 History of Present illness Narrative* Christina [...] - Tdap) Never done Covid-19 Vaccine(4 - season) due on 01/16/2023 Advance Directive Discussion [...] plan. Christina Martin APRN.CNP documented in this encounterHenry County Hospital04-08-2024 Miscellaneous Notes* Telephone Encounter - Ita Lujan - 08/24/2023 3:36 PM EDT Returned patient's call to reschedule 11/24 post op appt, pt aware of new date and time documented in this encounterHenry County Hospital03-21-2024 Miscellaneous Notes* Telephone Encounter - Ita Lujan - 08/06/2023 12:21 PM EDT Spoke with patient and she accepted 10/27/23 surgery date at , scheduled pre & post op appts and informed pt teaching appt will not appear on MyChart documented in this encounterHenry County Hospital03-13-2024 Instructions* Patient Instructions* Michael Manzanares MD - 07/29/2023 9:07 AM EDT HELPFUL [...] run out of medicine. documented in this encounterHenry County Hospital03-13-2024 History of Present illness Narrative* Michael [...] and ovarian cancer. 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 Neg PELT GRADER with 300 mL sterile water Neg PELT GRADER with 300 mL sterile water with prolapse [...] surgical options: reconstructive versus obliterative, mesh versus yavapai-apache tissue, and abdominal versus vaginal versus laparoscopic. Offered TVH, possible BSO (if able), USLS, APR, cysto vs JACEY, sacrocolpopexy, cysto. She decided onvaginal yavapai-apache tissue repair. Vega but first available We agreed that we would hold on a suburethral mesh sling at the time of the prolapse repair given her lack of or minimal symptoms and absence of JEMIMA on PELT GRADER with 300mL sterile water, prolapse reduced. We [...] by 85%. Given absence of JEMIMA on PELT GRADER, will defer mgmt for now. Also defer mgmt of UUI until after surgery 3. Vaginal atrophy Recommend vaginal estrogen cream, which she is already using Michael Manzanares MD I spent a total of 55 minutes on the date of the service which included preparing to see the patient, [id number] patient care, completing clinical documentation, obtaining and/or [...] physician via US mail. documented in this encounterHenry County Hospital12-21-2023 History of Present illness Narrative* Kristen Oviedo APRN.CNP - 05/07/2023 10:57 AM EST Scheduling: Clinical [...] discussing with patient and chart review, the patient/rehabilitation aide/scheduler were instructed to schedule with GI Appointment was scheduled with Adore Oviedo APRN.CNP May 07, 2023 10:58 AM documented in this encounterHenry County Hospital11-30-2023 History of Present illness Narrative* Marcelina Madrigal MD - 04/16/2023 9:19 AM EST Pbx Installer offered: Patient declines. Phyllis Sanchez is a 72 year old female who presents for problem visit. HPI: Patient presents with a bulge at her vaginal opening. It gets worse when she's on her feet. She fist noticed it on Thanksgiving. Patient denies problems with emptying her bladder or bowels. OB History T3 L3 SAB1 IAB0 Ectopic0 Multiple0 Live Births0 Airline Mechanic History LMP: Postmenopausal Age at Menarche: 17 Age at First : 33 Age at Menopause: Airline Mechanic History Comments: Sexual Activity: Yes; Male; VASECTOMY [...] Low Marcelina Madrigal MD documented in this encounterHenry County Hospital10-24-2023 Miscellaneous Notes* Telephone Encounter - Gisela Navarrete RN - 03/10/2023 1:02 PM EDT Called pt and given results and Christina's recommendations. * Telephone Encounter - Christina Martin APRN.SUSPENDER MAKER - 03/10/2023 10:17 AM EDT Patient with [...] worsening of symptoms. Thank you Christina Martin APRN.CNP documented in this encounterHenry County Hospital10-23-2023 Miscellaneous Notes* Letter - Coordinator, Mammography - 03/09/2023 3:01 PM EDT March 10, 2023 PID: [id number] Phyllis Sanchez [address] [place] [address] Dear Ms. Sanchez, We are pleased to [...] report will be kept [facility] at [facility] as part of your permanent medical record and are available for your continuing care. Thank you for allowing us to help in meeting your health care needs. Sincerely, Dr. Kamara Interpreting Radiologist [facility] (Normal over 40) documented in this encounterHenry County Hospital10-20-2023 History of Present illness Narrative* Shaila Orozco, RT(R) - 03/06/2023 9:50 AM EDT Radiology Service [...] 06, 2023 9:39 AM documented in this encounterHenry County Hospital10-19-2023 History of Present illness Narrative* Genny [...] 05, 2023 8:52 AM documented in this encounterHenry County Hospital10-19-2023 History of Present illness Narrative* Christina [...] Bowel sounds normal. No masses, organomegaly Right auxiliary equipment tender to 4th right toe at PIP and extending to top of right foot. no bruising or obvious deformity. 4th toe with edema, Health maintenance reviewed with patient: RSV Vaccine(1 - 1-dose 60+ series) Never done Mammogram Screening due on 01/16/2023 Influenza Vaccine(1) due on 01/16/2023 Covid-19 Vaccine( - 2022-24 season) due on 01/16/2023 DTaP,Tdap,Td Vaccine(1 - [...] plan. Christina Martin APRN.CNP documented in this encounterHenry County Hospital04-17-2023 History of Present illness Narrative* Genny Santiago, RT(R) - 09/01/2022 2:20 PM EDT Radiology [...] DATA: Not applicable SIGNED BY: RT Daisy(R) September 01, 2022 2:21 PM documented in this encounterHenry County Hospital02-24-2023 History of Present illness Narrative* Marlen Madrigal APRN.SUSPENDER MAKER - 07/11/2022 1:08 PM EST CC: Patient [...] 2005 H/O ganglion cyst Seizure disorder (HCC) 1966 on medication in her teens. Off medication [...] Patient agreeable to treatment plan. Marlen Madrigal APRN.SUSPENDER MAKER documented in this encounterHenry County Hospital01-18-2023 Discharge summary Author Rohan Colby [facility] June 06, 2022 2:52pm Note Date/Time June 04, 2022 8 :25am [facility] Physical Therapy [facility] [address] [place] [address] / REHABILITATION SERVICES DISCHARGE SUMMARY MR#: [id number] Acct: [id number] Name: PHYLLIS SANCHEZ Rep #: [id number] : 1950 71 From: Cert. WINSTON SheltonT, OCS Referring Dr.: Dr. Benjamín Green MD Status: REG RCR Insurance: MEDICARE PART A B AAR It has been my pleasure to treat PHYLLIS SANCHEZ referred by Dr. Benjamín Green MD, with the diagnosis of OTHER TEAR OF MEDIAL MINISCUS ,CURRENT INJURY RIGHT for a total of 8 visit(s). Discharge Date: 06/04/22 Please see the following information for a summary of their discharge status. Subjective: Doing well. Seen DR doing well Objective/Function: MMT: 5/5. GAIT: RECIPROCAL PATTERN. AROM: 0-140 DEGREES SUPINE FLEXION Goal 1:: I with HEP for right arthroscopic Goal Progress: Goal Met Goal 2:: Patient to [id number] % improvement with improved function with ADLS' [...] please feel free to call me at [phone]. Thank you for the referral of thispatient. Sincerely, Rohan Colby PT, Cert MDT, OCS Balance/Gait/Functional tests - Balance/Special Test Scores Lower Extremity Functional Score: 68 <Electronically signed by Rebeca Mckeon PT. SYLVIA, OCS> 06/06/22 0251 CC: NANO Pelletier; Dr. Benjamín Green MD ~ JLA Signed [facility] Work Phone: 1(119) 452-966412-12-2022 History of Present illness Narrative* Jerrell Sarmiento [...] negative. Jerrell Sarmiento MD documented in this encounterHenry County Hospital12-04-2022 Hospital Discharge instructions Additional Instructions Please [...] follow-up CT in 6 months to ensure [facility] Work Phone: 1(118) 149-151209-22-2022 Instructions* Patient Instructions* Tanya Dobson APRN.CNP - 02/06/2022 9:51 AM EDT Avoid bladder irritants - spicy, citrus, tomatoes, smoking, coffee, tea, pop, carbonation, artificial sweeteners, alcohol documented in this encounterHenry County Hospital09-22-2022 History of Present illness Narrative* Tanya Dobson APRN.CNP - 02/06/2022 9:17 AM EDT Pbx Installer offered: Patient declines. 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 Sanchez, We are pleased to [...] report will be kept on [facility] at [facility] as part of your permanent medical record and are available for your continuing care. Thank you for allowing us to help in meeting your health care needs. Sincerely, Dr. Raymundo Interpreting Radiologist [facility] (Normal over 40) documented in this encounterHenry County Hospital09-01-2022 History of Present illness Narrative* RT [...] DATA: Not applicable SIGNED BY: RT Marleny(R) January 16, 2022 7:32 AM documented in this encounterHenry County Hospital04-15-2022 Miscellaneous Notes* Telephone Encounter - Jolanta [...] you. Jolanta Navarrete RN documented in this encounterHenry County Hospital02-02-2022 History of Present illness Narrative* Jada [...] IV DATA: Not applicable SIGNED BY: RT Sophia(Vladimir) June 19, 2021 11:11 AM documented in this encounterHenry County Hospital11-01-2021 History of Present illness Narrative* Genny [...] 18, 2021 4:24 PM documented in this encounterHenry County HospitalConsult note Author Rodolfo Huffman [facility] Note Date/Time November 08, 2024 2:19 pm [facility] Medical Records Department [address] [place] [address] Pre-Anesthesia Evaluation 11/08/24 1413 MR#: [id number] Acct: [id number] Name: PHYLLIS SANCHEZ Rep #:[id number] : 1950 73 From: Rodolfo Huffman MD PCP: CHRISTINA MARTIN, SALESPERSON FURNITURE-C Status:REG SDC Y Race: C Location: [address] [address] ASA Classification* ASA Classification ASA Classification: 2 [...] EGD Anesthesia History Anesthesia History - hat and cap parts cutter hand: Anesthesia History - hat and cap parts cutter hand Hx Hospitalization No 11/03/24 13:18 Any Problems [...] of water?: No PONV PONV - hat and cap parts cutter hand: PONV - hat and cap parts cutter hand Female Yes 11/03/24 13:18 HX of Motion [...] 13:42 Respiratory Assessment Respiratory Assessment - hat and cap parts cutter hand: Respiratory Tract Infection Hx - hat and cap parts cutter hand Hx Respiratory Tract Infection No 11/03/24 13:18 STOP Sleep Apnea STOP Sleep Apnea - hat and cap parts cutter hand: STOP Sleep Apnea - hat and cap parts cutter hand Hx Hypertension No 11/03/24 13:18 Hx Sleep [...] Use History Tobacco Use History - hat and cap parts cutter hand: Tobacco Use History - hat and cap parts cutter hand Tobacco Use Smoking Status Former smoker 11/03/24 13:18 Hx Tobacco Use Yes 11/03/24 13:18 Years Smoking Packs Smoked per Day Smoking Cessation Date was No - quit smoking greater 11/03/24 13:18 within the last 15 years than 15 years ago Hx Smoking Cessation Date 05/18/79 11/03/24 13:18 Hx Smoking Cessation Counseling Hematologic Medial History 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 Hx of Blood Transfusion No 11/03/24 13:18 [...] unrespo /Reproduction History /Reproductive History - hat and cap parts cutter hand: /Reproductive Hx- hat and cap parts cutter hand Hx Now Gestational Age (in weeks): EDC: [...] DAILY 09/0604/22/22 History mcg disintegrating tablet vitamins A,C,V-ukly-sbqesz 4,296 1 cap PO BID 12/19/21 04/22/22 [...] by Rodolfo forde MD> Date _ Rodolfo Valadez Signature: Date CC: ~ Signed [facility] Work Phone: Consult note Author David Jeffries [facility] Note Date/Time November 08, 2024 3:01 pm [facility] Medical Records Department [address] [place] [id number] Anesthesia Postop Eval I 11/08/24 1500 MR#: [id number] Acct: [id number] Name: PHYLLIS SANCHEZ Rep #:[id number] : 1950 73 From: David Jeffries PCP: CHRISTINA MARTIN, SALESPERSON FURNITURE-C Status:REG SDC Y Race: C Location: [place] [address] Anesthesia: Postop Eval I Current Vital Signs [...] David Valadez Signature: Date CC: ~ Signed [facility] Work Phone: Evaluation note* Diagnosis Osteopenia, unspecified location [facility] Diagnosis Encounter for screening mammogram for breast cancer Dense breast tissue on mammogram [facility]* Diagnosis Encounter for routine gynecologic examination in Medicare patient- Primary Urinary frequency Cystocele, midline Encounter for screening mammogram for breast cancer Dense breast tissue [facility] Diagnosis Onset Date Resolution Status Osteoarthritis of right knee acute Right knee pain acute Osteoarthritis of right knee acute Right knee pain acute Tear of medial meniscus of right knee acute [facility] Work Phone: Evaluation note* Diagnosis Onset Date Resolution Status Osteoarthritis of right knee acute Right knee pain acute Tear of medial meniscus of right knee acute Osteoarthritis of right knee acute Right knee pain acute Synovial cyst of popliteal space [Ho], right knee acute Tear of medial meniscus of right knee acute [facility] Work Phone: Evaluation note* Diagnosis Onset [...] of medial meniscus of right knee acute [facility] Work Phone: Evaluation note* Diagnosis Acute non-recurrent sinusitis, unspecified location- Primary documented in this encounter [facility] note* Diagnosis Onset Date Resolution Status Osteoarthritis [...] of medial meniscus of right knee acute [facility] Work Phone: Evaluation note* Diagnosis Sore throat- Primary Acute pharyngitis [facility]* Diagnosis Osteopenia, unspecified location- Primary Bladder pain Other symptoms involving urinary system Toe pain, right Pain in limb Right foot pain Pain in limb Need for influenza vaccination Need for prophylactic vaccination and inoculation against influenza documented in this encounter [facility] note* Diagnosis Encounter for screening mammogram for breast cancer documented in this encounter [facility] note* Diagnosis Encounter for screening mammogram for breast cancer Dense breast tissue [facility] noteNo assessment [facility] Work Phone: Evaluation note* Diagnosis Cystocele, midline- Primary Uterine prolapse Uterine prolapse without mention of vaginal wall prolapse documented in this encounter [facility] note* Diagnosis Cystocele, midline- Primary Mixed stress and urge urinary incontinence Mixed incontinence urge and stress (male)(female) Vaginal atrophy Postmenopausal atrophic vaginitis Uterovaginal prolapse, incomplete Rectocele Preop examination Preoperative examination, unspecified documented in this encounter [facility] note* Diagnosis Onset Date Resolution Status Osteoarthritis of right knee acute Synovial cyst of popliteal space [Ho], right knee acute Tear of medial meniscus of right knee acute Osteoarthritis of right knee acute Synovial cyst of popliteal space [Ho], right knee acute Tear of medial meniscus of right knee [facility] Work Phone: Evaluation note* Diagnosis Osteopenia, unspecified location- Primary Encounter for screening for osteoporosis Special screening for osteoporosis Asymptomatic postmenopausal status Annual physical exam Routine general medical examination at a health care facility Uterovaginal prolapse, incomplete Cystocele, midline Rectocele documented in this encounter [facility] note* Diagnosis Encounter for screening for osteoporosis Special screening for osteoporosis Asymptomatic postmenopausal status Uterovaginal prolapse, incomplete Cystocele, midline Rectocele [facility]* Diagnosis Educational circumstance- Primary Uterovaginal prolapse, incomplete Cystocele, midline Rectocele documented in this encounter [facility] note* Diagnosis Pre-operative examination- Primary Preoperative examination, [...] analgesics as needed [facility] Encounter for urine test- Primary Laboratory examination, unspecified documented in this encounter [facility] note* Diagnosis Mixed stress and urge urinary incontinence- Primary Mixed incontinence urge and stress (male)(female) Uterovaginal prolapse, incomplete Cystocele, midline [facility]* Diagnosis Pre-operative examination- Primary Preoperative examination, unspecified Chronic left-sided low back pain without sciatica Uterovaginal prolapse, incomplete Cystocele, midline Rectocele Osteoporosis, unspecified osteoporosis type, unspecified pathological fracture presence Solitary pulmonary nodule Hx of seizure disorder Personal history of other disorders of nervous system and sense organs Osteopenia, unspecified location [facility]* Diagnosis Right foot pain Pain in limb Toe pain, right Pain in limb [facility]* Diagnosis Pre-operative examination- Primary Preoperative examination, unspecified Chronic left-sided low back pain without sciatica Uterovaginal prolapse, incomplete Cystocele, midline Rectocele Osteoporosis, unspecified osteoporosis type, unspecified pathological fracture presence Solitary pulmonary nodule Hx of seizure disorder Personal history of other disorders of nervous system and sense organs JEMIMA (stress urinary incontinence, female)- Primary Female stress incontinence Cystocele, midline Rectocele [facility]* Diagnosis Chronic right-sided low back pain without sciatica [facility]* Diagnosis Chronic right shoulder pain Pain in joint, shoulder region [facility]* Diagnosis Abnormal x-ray Other nonspecific (abnormal) findings on radiological and other examinations of body structure documented in this encounter [facility] note* Diagnosis Osteopenia, unspecified location DDD (degenerative disc disease), lumbar Degeneration of lumbar or lumbosacral intervertebral disc Chronic right-sided low back pain without sciatica [facility]* Diagnosis Pre-operative examination- Primary Preoperative examination, [...] Female stress incontinence [facility]* Diagnosis Pre-operative examination- Primary Preoperative examination, unspecified Chronic left-sided low back pain without sciatica Uterovaginal prolapse, incomplete Cystocele, midline Rectocele Osteoporosis, unspecified osteoporosis type, unspecified pathological fracture presence Solitary pulmonary nodule Hx of seizure disorder Personal history of other disorders of nervous system and sense organs Encounter for screening mammogram for breast cancer [facility] Diagnosis Pre-operative examination- Primary Preoperative examination, [...] syndrome of menopause [facility]* Diagnosis Pre-operative examination- Primary Preoperative examination, [...] atresia of vagina [facility] Diagnosis Pre-operative examination- Primary Preoperative examination, unspecified Chronic left-sided low back pain without sciatica Uterovaginal prolapse, incomplete Cystocele, midline Rectocele Osteoporosis, unspecified osteoporosis type, unspecified pathological fracture presence Solitary pulmonary nodule Hx of seizure disorder Personal history of other disorders of nervous system and sense organs Medicare annual wellness visit, subsequent- Primary Routine general medical examination at a health care facility Montez's esophagus without dysplasia Montez's esophagus Osteopenia, unspecified location Medication management Encounter for long-term (current) use of other medications Screening for depression Encounter for screening examination for other mental health and behavioral disorders Encounter for immunization Need for other specified prophylactic vaccination against single bacterial disease Lipid screening Screening for lipoid disorders [facility]* Diagnosis Pre-operative examination- Primary Preoperative examination, unspecified Chronic left-sided low back pain without sciatica Uterovaginal prolapse, incomplete Cystocele, midline Rectocele Osteoporosis, unspecified osteoporosis type, unspecified pathological fracture presence Solitary pulmonary nodule Hx of seizure disorder Personal history of other disorders of nervous system and sense organs Encounter for screening mammogram for breast cancer- Primary documented in this encounter [facility] Discharge instructionsAmbulatory Orders* Physical Therapy Referral Location: None Selected [facility] [employer] Work Phone: Reason for referral (narrative)* Diagnostic Procedure Only (Routine) - Pending Review Specialty Diagnoses / Procedures Referred By Fidencio t Referred To Contact [facility] Diagnoses Encounter for screening mammogram for breast cancer Dense breast tissue Procedures TAYLOR SCREENING W AQUILES SCREENING DIGITAL BREAST TOMOSYNTHESIS BI SCREENING MAMMOGRAPHY BI 2-VIEW BREAST INC Tanya Welch APRN.CNP [address] [place] [address] [facility] [address] [place] [address] Referral ID Status Reason Start Date Expiration Date Visits Requested Visits Authorized [id number] Pending Review Auto-Generat ed Referral 02/06/2022 03/08/2023 1 1 [facility] for referral (narrative)* Diagnostic Procedure Only (Routine) - Pending Review Specialty Diagnoses / Procedures Referred By Fidencio griffin Referred To Contact BR IMAGING Diagnoses Encounter for screening mammogram for breast cancer Procedures TAYLOR SCREENING W AQUILES SCREENING DIGITAL BREAST TOMOSYNTHESIS BI SCREENING MAMMOGRAPHY BI 2-VIEW BREAST INC Murphy Ruiz MD [address] [place] [address] [facility] [address] [place] [address] Referral ID Status Reason Start Date Expiration Date Visits Requested Visits Authorized [id number] Pending Review Auto-Generat ed Referral 3 04/02/2024 1 1 T [facility] for referral (narrative)* Diagnostic Procedure Only (Routine) - Closed Specialty Diagnoses / Procedures Referred By Fidencio griffin Referred To Contact BR IMAGING Diagnoses Encounter for screening mammogram for breast cancer Dense breast tissue Procedures TAYLOR SCREENING W AQUILES SCREENING DIGITAL BREAST TOMOSYNTHESIS BI SCREENING MAMMOGRAPHY BI 2-VIEW BREAST INC Tanya Welch APRN.CNP [address] [place] [address] [facility] [address] [place] [address] Referral ID Status Reason Start Date Expiration Date V isits Requested Visits Authorized [id number] Closed Auto-Generate d Referral 02/06/2022 03/08/2023 1 1 [facility] for referral (narrative)* Diagnostic Procedure Only (Routine) - Authorized Specialty Diagnoses / Procedures Referred By Contac t Referred To Contact XR IMAGING Diagnoses Encounter for screening for osteoporosis Asymptomatic postmenopausal status Procedures DXA-AXIAL SKELETON Christina Martin APRN.SUSPENDER MAKER [address] [place] [address] [place] [address] Referral ID Status Reason Start Date Expiration Date Visits Requested Visits Authorized [id number] Authorized Auto-Generat ed Referral 09/28/2023 10/27/2024 1 1 [facility] for referral (narrative)* Diagnostic Procedure Only (Routine) - Closed Specialty Diagnoses / Procedures Referred By Contac t Referred To Contact XR IMAGING Diagnoses Right foot pain Procedures XR FOOT GENERAL 3V AP/LAT/OBL RIGHT RADEX FOOT COMPLETE MINIMUM 3 VIEWS Christina Martin APRN.SUSPENDER MAKER [address] [place] [address] [place] [address] Referral ID Status Reason Start Date Expiration Date V isits Requested Visits Authorized [id number] Closed Auto-Generate d Referral 03/05/2023 04/03/2024 1 1 [facility] for referral (narrative)* Diagnostic Procedure Only (Routine) - Closed Specialty Diagnoses / Procedures Referred By Contac t Referred To Contact XR IMAGING Diagnoses Chronic right-sided low back pain without sciatica Procedures XR LUMBAR GENERAL 3V AP/LAT/L5-S1 RADEX SPINE LUMBOSACRAL 2/3 VIEWS Christina Martin APRN.SUSPENDER MAKER [address] [place] [address] [place] [address] Referral ID Status Reason Start Date Expiration Date V isits Requested Visits Authorized [id number] Closed Auto-Generate d Referral 09/01/2022 10/01/2023 1 1 [facility] for referral (narrative)* Diagnostic Procedure Only (Routine) - Closed Specialty Diagnoses / Procedures Referred By Contac t Referred To Contact XR IMAGING Diagnoses Chronic right shoulder pain Procedures XR SHOULDER GENERAL 3V OR MORE AP/TRUE AP/OTHER RIGHT RADEX SHOULDER COMPLETE MINIMUM 2 VIEWS Alondra Pelletier APRN.CNP [address] [place] [address] [place] [address] Referral ID Status Reason Start Date Expiration Date V isits Requested Visits Authorized [id number] Closed Auto-Generate d Referral 06/18/2021 05/17/2022 1 1 [facility] for referral (narrative)* Diagnostic Procedure Only (Routine) - Closed Specialty Diagnoses / Procedures Referred By Contac t Referred To Contact XR IMAGING Diagnoses Osteopenia, unspecified location DDD (degenerative disc disease), lumbar Chronic right-sided low back pain without sciatica Procedures XR SACROILIAC JOINTS 2V AP PELVIS/FERGUESON X-RAY SACRO-ILIAC JOINTS MIN 3 VIEW Murphy Cuevas MD [address] [place] [address] [place] [address] Referral ID Status Reason Start Date Expiration Date V isits Requested Visits Authorized [id number] Closed Auto-Generate d Referral 03/18/2021 04/17/2022 1 1 * Diagnostic Procedure Only (Routine) - Closed Specialty Diagnoses / Procedures Referred By Contac t Referred To Contact XR IMAGING Diagnoses Osteopenia, unspecified location DDD (degenerative disc disease), lumbar Chronic right-sided low back pain without sciatica Procedures XR LUMBAR GENERAL 3V AP/LAT/L5-S1 X-RAY L-S SPINE AP/LATERAL Murphy Cuevas MD [address] [place] [address] [place] [id number] Referral ID Status Reason Start Date Expiration Date V isits Requested Visits Authorized [id number] Closed Auto-Generate d Referral 03/18/2021 04/17/2022 1 1 [facility] for referral (narrative)* Diagnostic Procedure Only (Routine) - Closed Specialty Diagnoses / Procedures Referred By Contac t Referred To Contact BR IMAGING Diagnoses Encounter for screening mammogram for breast cancer Procedures TAYLOR SCREENING W AQUILES SCREENING DIGITAL BREAST TOMOSYNTHESIS BI SCREENING MAMMOGRAPHY BI 2-VIEW BREAST INC CAD Murphy Cuevas MD [address] [place] [address] [facility] [address] [place] [id number] Referral ID Status Reason Start Date Expiration Date V isits Requested Visits Authorized [id number] Closed Auto-Generate d Referral 03/04/2023 04/02/2024 1 1 [facility] for referral (narrative)No reason for referral information [facility] Work Phone: Reason for visit Narrative* Diagnostic Procedure Only (Routine) - Closed Specialty Diagnoses / Procedures Referred By Contac t Referred To Contact BR IMAGING Diagnoses Encounter for screening mammogram for breast cancer Dense breast tissue Procedures TAYLOR SCREENING W AQUILES SCREENING DIGITAL BREAST TOMOSYNTHESIS BI SCREENING MAMMOGRAPHY BI 2-VIEW BREAST INC CAD Tanya Dobson, MEL.SUSPENDER MAKER [address] [place] [address] [facility] [address] [place] [address] Referral ID Status Reason Start Date Expiration Date V isits Requested Visits Authorized [id number] Closed Auto-Generate d Referral 02/06/2022 03/08/2023 1 1 [facility] for visit Narrative* Diagnostic Procedure Only (Routine) - Closed Specialty Diagnoses / Procedures Referred By Contac t Referred To Contact XR IMAGING Diagnoses Encounter for screening for osteoporosis Asymptomatic postmenopausal status Procedures DXA-AXIAL SKELETON Christina Martin, 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 [address] [place] [address] [place] [address] Referral ID Status Reason Start Date Expiration Date V isits Requested Visits Authorized [id number] Closed Auto-Generate d Referral 09/28/2023 10/27/2024 1 1 [facility] for visit Narrative* Diagnostic Procedure Only (Routine) - Closed Specialty Diagnoses / Procedures Referred By Contac t Referred To Contact XR IMAGING Diagnoses Toe pain, right Procedures XR TOE AP/LAT/OBL RIGHT RADEX TOE MINIMUM 2 VIEWS Christina Martin APRN.SUSPENDER MAKER [address] [place] [address] [place] [address] Referral ID Status Reason Start Date Expiration Date V isits Requested Visits Authorized [id number] Closed Auto-Generate d Referral 03/05/2023 04/03/2024 1 1 [facility] for visit Narrative* Diagnostic Procedure Only (Routine) - Closed Specialty Diagnoses / Procedures Referred By Contac t Referred To Contact XR IMAGING Diagnoses Chronic right-sided low back pain without sciatica Procedures XR LUMBAR GENERAL 3V AP/LAT/L5-S1 RADEX SPINE LUMBOSACRAL 2/3 VIEWS Christina Martin APRN.SUSPENDER MAKER [address] [place] [address] [place] [address] Referral ID Status Reason Start Date Expiration Date V isits Requested Visits Authorized [id number] Closed Auto-Generate d Referral 09/01/2022 10/01/2023 1 1 [facility] for visit Narrative* Diagnostic Procedure Only (Routine) - Closed Specialty Diagnoses / Procedures Referred By Contac t Referred To Contact XR IMAGING Diagnoses Chronic right shoulder pain Procedures XR SHOULDER GENERAL 3V OR MORE AP/TRUE AP/OTHER RIGHT RADEX SHOULDER COMPLETE MINIMUM 2 VIEWS Alondra Pelletier, 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 [address] [place] [address] [place] [address] Referral ID Status Reason Start Date Expiration Date V isits Requested Visits Authorized [id number] Closed Auto-Generate d Referral 06/18/2021 05/17/2022 1 1 [facility] for visit Narrative* Diagnostic Procedure Only (Routine) - Closed Specialty Diagnoses / Procedures Referred By Fidencio t Referred To Contact XR IMAGING Diagnoses Osteopenia, unspecified location DDD (degenerative disc disease), lumbar Chronic right-sided low back pain without sciatica Procedures XR SACROILIAC JOINTS 2V AP PELVIS/FERGUESON X-RAY SACRO-ILIAC JOINTS MIN 3 VIEW Murphy Cuevas MD [address] [place] [address] [place] [address] Referral ID Status Reason Start Date Expiration Date V isits Requested Visits Authorized [id number] Closed Auto-Generate d Referral 03/18/2021 04/17/2022 1 1 [facility] for visit Narrative* Diagnostic Procedure Only (Routine) - Closed Specialty Diagnoses / Procedures Referred By Fidencio griffin Referred To Contact BR IMAGING Diagnoses Encounter for screening mammogram for breast cancer Procedures TAYLOR SCREENING W AQUILES SCREENING DIGITAL BREAST TOMOSYNTHESIS BI SCREENING MAMMOGRAPHY BI 2-VIEW BREAST INC CAD Murphy Cuevas MD [address] [place] [address] [facility] [address] [place] [address] Referral ID Status Reason Start Date Expiration Date V isits Requested Visits Authorized [id number] Closed Auto-Generate d Referral 03/04/2023 04/02/2024 1 1 [facility] Advance Directives No Advanced Directives Records FoundDocuments on File Type Date Recorded Patient Dialysis Technician Expl anation Advance Directive(s) 07/02/2018 5:48 AM Advance Directive(s) 06/03/2018 8:47 AM Advance Directive Response Recorded Date/ Time Living Will No April 20 9:10am Power of Sales Representative Groceries No April 20, 2022 9:10am Advance Directive Response Recorded Date/ Time Living Will No April 24 9:04am Power of Sales Representative Groceries No April 24, 2022 9:04am Advance Directive Response Recorded Date/ Time Living Will No July 29, 2023 9:51am Power of Sales Representative Groceries No July 28 9:51am Advance Directive Response Recorded Date/ Time Do you have a Healthcare Power of Sales Representative Groceries? Yes November 03, 2024 1:18pm Reason for Referral Specialty Diagnoses / Procedures Referred By Contac t Referred To Contact BR IMAGING Diagnoses Encounter for screening mammogram for breast cancer Dense breast tissue on mammogram Procedures TAYLOR SCREENING W AQUILES SCREENING BREAST DGTL AQUILES UNI/BILAT ADD ON SCREENING MAMMOGRAPHY BI 2-VIEW BREAST INC Tanya Welch, 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 [address] [place] [address] [facility] [address] [place] [address] Referral ID Status Reason Start Date Expiration Date Visits Re quested Visits Authorized [id number] Closed 12/20/2020 01/19/2022 1 1 Specialty Diagnoses / Procedures Referred By Contac t Referred To Contact Urology Diagnoses Bladder pain Procedures CONSULT TO UROLOGY OFFICE/OUTPATIENT NEW HIGH MDM 60-74 MINUTES Christina Martin APRN.SUSPENDER MAKER [address] [place] [address] Referral ID Status Reason Start Date Expiration Date Visits Requested Visits Authorized [id number] Authorized PCP Requested Referral 03/04/2024 1 1 Specialty Diagnoses / Procedures Referred By Contac t Referred To Contact XR IMAGING Diagnoses Toe pain, right Procedures XR TOE AP/LAT/OBL RIGHT RADEX TOE MINIMUM 2 VIEWS Christina Martin APRN.SUSPENDER MAKER [address] [place] [address] [place] [address] Referral ID Status Reason Start Date Expiration Date V isits Requested Visits Authorized [id number] Closed Auto-Generate d Referral 03/05/2023 04/03/2024 1 1 Specialty Diagnoses / Procedures Referred By Contac t Referred To Contact XR IMAGING Diagnoses Right foot pain Procedures XR FOOT GENERAL 3V AP/LAT/OBL RIGHT RADEX FOOT COMPLETE MINIMUM 3 VIEWS Christina Martin APRN.SUSPENDER MAKER [address] [place] [address] [place] [address] Referral ID Status Reason Start Date Expiration Date V isits Requested Visits Authorized [id number] Closed Auto-Generate d Referral 03/05/2023 04/03/2024 1 1 Specialty Diagnoses / Procedures Referred By Contac t Referred To Contact Diagnoses Cystocele, midline Uterine prolapse Procedures CONSULT TO URO GYNECOLOGY OFFICE/OUTPATIENT [facility] MDM 60-74 MINUTES Marcelina Madrigal MD [address] [address] Referral ID Status Reason Start Date Expiration Date Visits Requested Visits Authorized [id number] Authorized PCP Requested Referral Auto-Generate d Referral 3 04/15/2024 1 1 Specialty Diagnoses / Procedures Referred By Contac t Referred To Contact Diagnoses Uterovaginal prolapse, incomplete Cystocele, midline Rectocele Procedures REFER TO PACC - PRE ANESTHESIA CONSULTATION CLINIC OFFICE/OUTPATIENT [facility] 60 MINUTES Michael Manzanares MD [address] [facility] [address] [place] [address] Referral ID Status Reason Start Date Expiration Date Visits Requested Visits Authorized [id number] Authorized PCP Requested Referral 08/04/2023 07/28/2024 1 [...] Abdominal pain November 08, 2024 1:05 pm Chief Complaint Admit Date 2 M FU September 13, 2024 8:2 1am LOWER ABD PAIN October 14, 2024 6:50a m CT scan results October 24, 2024 8:27a m E-ORDER December 03, 2024 8:32 am Chief Complaint Admit Date 2 M FU September 13, 2024 8:2 1am LOWER ABD PAIN October 14, 2024 6:50a m CT scan results October 24, 2024 8:27a m E-ORDER December 03, 2024 8:32 am Follow Up December 15, 2024 8:21 am Reason for Visit Admit Date Abdominal pain September 13, 2024 8:2 1am Constipation September 13, 2024 8:2 1am Abdominal pain October 24, 2024 8:27a m Abnormal CT scan, bladder October 24, 2024 8:27am Constipation October 24, 2024 8:27a m Abdominal pain November 08, 2024 1:05 pm Abdominal pain December 15, 2024 8:21 am Atrophic gastritis December 15, 2024 8:21 am Chief Complaint Admit Date 2 M FU September 13, 2024 8:2 1am LOWER ABD PAIN October 14, 2024 6:50a m CT scan results October 24, 2024 8:27a m E-ORDER December 03, 2024 8:32 am Follow Up December 15, 2024 8:21 am E ORDERS December 16, 2024 8:1 6am Reason for Visit Admit Date Abdominal pain September 13, 2024 8:2 1am Constipation September 13, 2024 8:2 1am Abdominal pain October 24, 2024 8:27a m Abnormal CT scan, bladder October 24, 2024 8:27am Constipation October 24, 2024 8:27a m Abdominal pain November 08, 2024 1:05 pm Abdominal pain December 15, 2024 8:21 am Atrophic gastritis December 15, 2024 8:21 am B12 deficiency December 15, 2024 8:21 am Barretts esophagus December 15, 2024 8:21 am Chief Complaint Admit Date 2 M FU September 13, 2024 8:2 1am LOWER ABD PAIN October 14, 2024 6:50a m CT scan results October 24, 2024 8:27a m E-ORDER December 03, 2024 8:32 am Follow Up December 15, 2024 8:21 am E ORDERS December 16, 2024 8:1 6am 2 W FU December 29, 2024 12 :54pm Reason for Visit Admit Date Abdominal pain September 13, 2024 8:2 1am Constipation September 13, 2024 8:2 1am Abdominal pain October 24, 2024 8:27a m Abnormal CT scan, bladder October 24, 2024 8:27am Constipation October 24, 2024 8:27a m Abdominal pain November 08, 2024 1:05 pm Abdominal pain December 15, 2024 8:21 am Atrophic gastritis December 15, 2024 8:21 am B12 deficiency December 15, 2024 8:21 am Barretts esophagus December 15, 2024 8:21 am Constipation December 29, 2024 12 :54pm Periumbilical pain December 29, 2024 12 :54pm RLQ abdominal pain December 29, 2024 12 :54pm Chief Complaint Admit Date LOWER ABD PAIN October 14, 2024 6:50a m CT scan results October 24, 2024 8:27a m E-ORDER December 03, 2024 8:32 am Follow Up December 15, 2024 8:21 am E ORDERS December 16, 2024 8:1 6am 2 W FU December 29, 2024 12 :54pm RLQ PAIN, CONSTIPATION, PERIUMBILICAL PA IN January 25, 2025 8:53am Test Result-Abd Pain/Constipation Sept2024 8:57am Reason for Visit Admit Date Abdominal pain October 24, 2024 8:27a m Abnormal CT scan, bladder October 24, 2024 8:27am Constipation October 24, 2024 8:27a m Abdominal pain November 08, 2024 1:05 pm Abdominal pain December 15, 2024 8:21 am Atrophic gastritis December 15, 2024 8:21 am B12 deficiency December 15, 2024 8:21 am Barretts esophagus December 15, 2024 8:21 am Constipation December 29, 2024 12 :54pm Periumbilical pain December 29, 2024 12 :54pm RLQ abdominal pain December 29, 2024 12 :54pm Atrophic gastritis February 02, 2025 8:57am Barretts esophagus February 02, 2025 8:57am Constipation February 02, 2025 8:57am Dyssynergic defecation February 02, 2 025 8:57am Periumbilical pain February 02, 2025 8:57am Family History No Family History Records Found [...] or prosecute any alcohol or drug abuse patient.[facility]In the event this information is protected by the Federal Confidentiality of Alcohol and Drug Abuse Patient Records regulations: The Federal rules restrict any use of the information to criminally investigate or prosecute any alcohol or drug abuse patient.[facility] HospitalIn the event this information is protected by the Federal Confidentiality of Alcohol and Drug Abuse Patient Records regulations: The Federal rules restrict any use of the information to criminally investigate or prosecute any alcohol or drug abuse patient.[facility]In the event this information is protected by the Federal Confidentiality of Alcohol and Drug Abuse Patient Records regulations: The Federal rules restrict any use of the information to criminally investigate or prosecute any alcohol or drug abuse patient.[facility] HospitalIn the event this information is protected by the Federal Confidentiality of Alcohol and Drug Abuse Patient Records regulations: The Federal rules restrict any use of the information to criminally investigate or prosecute any alcohol or drug abuse patient.[facility] HospitalIn the event this information is protected by the Federal Confidentiality of Alcohol and Drug Abuse Patient Records regulations: The Federal rules restrict any use of the information to criminally investigate or prosecute any alcohol or drug abuse patient.[facility] HospitalIn the event this information is protected by the Federal Confidentiality of Alcohol and Drug Abuse Patient Records regulations: The Federal rules restrict any use of the information to criminally investigate or prosecute any alcohol or drug abuse patient.[facility] HospitalIn the event this information is protected by the Federal Confidentiality of Alcohol and Drug Abuse Patient Records regulations: The Federal rules restrict any use of the information to criminally investigate or prosecute any alcohol or drug abuse patient.[facility] HospitalIn the event this information is protected by the Federal Confidentiality of Alcohol and Drug Abuse Patient Records regulations: The Federal rules restrict any use of the information to criminally investigate or prosecute any alcohol or drug abuse patient.[facility] HospitalIn the event this information is protected by the Federal Confidentiality of Alcohol and Drug Abuse Patient Records regulations: The Federal rules restrict any use of the information to criminally investigate or prosecute any alcohol or drug abuse patient.[facility] HospitalIn the event this information is protected by the Federal Confidentiality of Alcohol and Drug Abuse Patient Records regulations: The Federal rules restrict any use of the information to criminally investigate or prosecute any alcohol or drug abuse patient.[facility] HospitalIn the event this information is protected by the Federal Confidentiality of Alcohol and Drug Abuse Patient Records regulations: The Federal rules restrict any use of the information to criminally investigate or prosecute any alcohol or drug abuse patient.[facility] HospitalIn the event this information is protected by the Federal Confidentiality of Alcohol and Drug Abuse Patient Records regulations: The Federal rules restrict any use of the information to criminally investigate or prosecute any alcohol or drug abuse patient.[facility] HospitalIn the event this information is protected by the Federal Confidentiality of Alcohol and Drug Abuse Patient Records regulations: The Federal rules restrict any use of the information to criminally investigate or prosecute any alcohol or drug abuse patient.[facility] HospitalIn the event this information is protected by the Federal Confidentiality of Alcohol and Drug Abuse Patient Records regulations: The Federal rules restrict any use of the information to criminally investigate or prosecute any alcohol or drug abuse patient.[facility] HospitalIn the event this information is protected by the Federal Confidentiality of Alcohol and Drug Abuse Patient Records regulations: The Federal rules restrict any use of the information to criminally investigate or prosecute any alcohol or drug abuse patient.[facility] HospitalIn the event this information is protected by the Federal Confidentiality of Alcohol and Drug Abuse Patient Records regulations: The Federal rules restrict any use of the information to criminally investigate or prosecute any alcohol or drug abuse patient.[facility] HospitalIn the event this information is protected by the Federal Confidentiality of Alcohol and Drug Abuse Patient Records regulations: The Federal rules restrict any use of the information to criminally investigate or prosecute any alcohol or drug abuse patient.[facility] HospitalIn the event this information is protected by the Federal Confidentiality of Alcohol and Drug Abuse Patient Records regulations: The Federal rules restrict any use of the information to criminally investigate or prosecute any alcohol or drug abuse patient.[facility] HospitalIn the event this information is protected by the Federal Confidentiality of Alcohol and Drug Abuse Patient Records regulations: The Federal rules restrict any use of the information to criminally investigate or prosecute any alcohol or drug abuse patient.[facility] HospitalIn the event this information is protected by the Federal Confidentiality of Alcohol and Drug Abuse Patient Records regulations: The Federal rules restrict any use of the information to criminally investigate or prosecute any alcohol or drug abuse patient.[facility] HospitalIn the event this information is protected by the Federal Confidentiality of Alcohol and Drug Abuse Patient Records regulations: The Federal rules restrict any use of the information to criminally investigate or prosecute any alcohol or drug abuse patient.[facility] HospitalIn the event this information is protected by the Federal Confidentiality of Alcohol and Drug Abuse Patient Records regulations: The Federal rules restrict any use of the information to criminally investigate or prosecute any alcohol or drug abuse patient.[facility] HospitalIn the event this information is protected by the Federal Confidentiality of Alcohol and Drug Abuse Patient Records regulations: The Federal rules restrict any use of the information to criminally investigate or prosecute any alcohol or drug abuse patient.[facility] HospitalIn the event this information is protected by the Federal Confidentiality of Alcohol and Drug Abuse Patient Records regulations: The Federal rules restrict any use of the information to criminally investigate or prosecute any alcohol or drug abuse patient.[facility] HospitalIn the event this information is protected by the Federal Confidentiality of Alcohol and Drug Abuse Patient Records regulations: The Federal rules restrict any use of the information to criminally investigate or prosecute any alcohol or drug abuse patient.[facility] HospitalIn the event this information is protected by the Federal Confidentiality of Alcohol and Drug Abuse Patient Records regulations: The Federal rules restrict any use of the information to criminally investigate or prosecute any alcohol or drug abuse patient.[facility] HospitalIn the event this information is protected by the Federal Confidentiality of Alcohol and Drug Abuse Patient Records regulations: The Federal rules restrict any use of the information to criminally investigate or prosecute any alcohol or drug abuse patient.[facility] HospitalIn the event this information is protected by the Federal Confidentiality of Alcohol and Drug Abuse Patient Records regulations: The Federal rules restrict any use of the information to criminally investigate or prosecute any alcohol or drug abuse patient.[facility] HospitalIn the event this information is protected by the Federal Confidentiality of Alcohol and Drug Abuse Patient Records regulations: The Federal rules restrict any use of the information to criminally investigate or prosecute any alcohol or drug abuse patient.[facility] HospitalIn the event this information is protected by the Federal Confidentiality of Alcohol and Drug Abuse Patient Records regulations: The Federal rules restrict any use of the information to criminally investigate or prosecute any alcohol or drug abuse patient.[facility] HospitalIn the event this information is protected by the Federal Confidentiality of Alcohol and Drug Abuse Patient Records regulations: The Federal rules restrict any use of the information to criminally investigate or prosecute any alcohol or drug abuse patient.[facility] HospitalIn the event this information is protected by the Federal Confidentiality of Alcohol and Drug Abuse Patient Records regulations: The Federal rules restrict any use of the information to criminally investigate or prosecute any alcohol or drug abuse patient.[facility] HospitalIn the event this information is protected by the Federal Confidentiality of Alcohol and Drug Abuse Patient Records regulations: The Federal rules restrict any use of the information to criminally investigate or prosecute any alcohol or drug abuse patient.[facility] HospitalIn the event this information is protected by the Federal Confidentiality of Alcohol and Drug Abuse Patient Records regulations: The Federal rules restrict any use of the information to criminally investigate or prosecute any alcohol or drug abuse patient.[facility] HospitalIn the event this information is protected by the Federal Confidentiality of Alcohol and Drug Abuse Patient Records regulations: The Federal rules restrict any use of the information to criminally investigate or prosecute any alcohol or drug abuse patient.[facility] HospitalIn the event this information is protected by the Federal Confidentiality of Alcohol and Drug Abuse Patient Records regulations: The Federal rules restrict any use of the information to criminally investigate or prosecute any alcohol or drug abuse patient.[facility] HospitalIn the event this information is protected by the Federal Confidentiality of Alcohol and Drug Abuse Patient Records regulations: The Federal rules restrict any use of the information to criminally investigate or prosecute any alcohol or drug abuse patient.[facility] HospitalIn the event this information is protected by the Federal Confidentiality of Alcohol and Drug Abuse Patient Records regulations: The Federal rules restrict any use of the information to criminally investigate or prosecute any alcohol or drug abuse patient.[facility] Reason for Visit (unrecogniz ed section and content) Reason Onset Date Comments Refill Request 08/30/2021 Specialty Diagnoses / Procedures Referred By Fidencio griffin Referred To Contact Radiology / [facility] Diagnoses Encounter for screening mammogram for breast cancer Dense breast tissue on mammogram . Procedures SCREENING MAMMOGRAPHY BI 2-VIEW BREAST INC CAD SCREENING DIGITAL BREAST TOMOSYNTHESIS BI MAMMOGRAM TOMOGRAM SCREEN Tanya Dobson APRN.SUSPENDER MAKER [address] [place] [address] Radio Mammo [facility] [address] [place] [address] Referral ID Status Reason Start Date Expiration Date Visits Re quested Visits Authorized [id number] Closed 01/16/2022 1 0 Reason Comments Well [...] Consult Specialty Diagnoses / Procedures Referred By Contac t Referred To Contact Diagnoses Uterovaginal prolapse, incomplete Cystocele, midline Rectocele Procedures REFER TO PACC - PRE ANESTHESIA CONSULTATION CLINIC OFFICE/OUTPATIENT [facility] 60 MINUTES Michael Manzanares MD [address] [facility] [address] [place] [address] Referral ID Status Reason Start Date Expiration Date V isits Requested Visits Authorized [id number] Closed PCP Requested Referral 08/04/2023 07/28/2024 1 1 Reason Comments Voiding Trial Reason Onset Date Comments Refill Request 01/28/2024 Reason Comments Post Op Reason Comments Care Coordination Bulkamid Specialty Diagnoses / Procedures Referred By Contac t Referred To Contact Radiology / [facility] Diagnoses Abnormal x-ray [R93.89] Procedures XR CHEST Alondra Pelletier, 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 [address] [place] [address] [facility] [address] [place] [address] Referral ID Status Reason Start Date Expiration Date V isits Requested Visits Authorized [id number] Closed OON/Self Pay Override 06/19/2021 05/17/2022 1 1 Reason Comments Procedure Cystoscopy with Bulk amid Reason Comments Care Coordination Bulkamid Follow-Up Reason Comments Recheck 6 month follow up Reason Comments Follow Up Reason Onset Date Comments Population Health Navigation Outreach 01/02/2025 Donaldo/Workbench/ACO Reason Comments Medicare Wellness Exam Annual Medicare w ellness Reason Comments Orders Care Teams (unrecognized sec tion and content) Biomedical Engineering Technologist Relationship Specialty Start Date End Date Murphy Cuevas MD [address] [place], [place] [id number] PCP - General Internal Medicine 10/05/20 Biomedical Engineering Technologist Relationship Specialty Start Date End Date Murphy Cuevas MD [address] [place], [place] [id number] PCP - General Internal Medicine 10/05/20 Biomedical Engineering Technologist Relationship Specialty Start Date End Date Murphy Cuevas MD [address] [place], [place] [address] PCP - General Internal Medicine 10/05/20 Biomedical Engineering Technologist Relationship Specialty Start Date End Date Murphy Cuevas MD [address] [place], [place] [id number] PCP - General Internal Medicine 10/05/20 Team Status: Active Member Role Status Dates Alondra Pelletier SALESPERSON FURNITURE, SALESPERSON FURNITURE-C Primary Care Provider Active Team Status: Inactive Member Role Status Dates No Primary Care Physician Primary Care Provider, Refer ring Provider Active Benjamín Green MD Attending Provider Active Team Status: Inactive Member Role Status Dates No Primary Care Physician Referring Provider Active Benjamín Green MD Attending Provider Active Alondra Pelletier SALESPERSON FURNITURE, SALESPERSON FURNITURE-C Primary Care Provider Active Team Status: Active Member Role Status Dates Benjamín Green MD Attending Provider, Referring Provider, Other Provider Active Alondra Pelletier SALESPERSON FURNITURE, SALESPERSON FURNITURE-C Primary Care Provider Active Team Status: Inactive Member Role Status Dates Alondra Pelletier SALESPERSON FURNITURE, SALESPERSON FURNITURE-C Primary Care Provider, Referri ng Provider Active Benjamín Green MD Attending Provider Active Team Status: Inactive Member Role Status Dates No Primary Care Physician Primary Care Provider Active Benjamín Green MD Attending Provider Active Team Status: Inactive Member Role Status Dates Benjamín Green MD Attending Provider, Referring Prov ider Active Alondra Pelletier SALESPERSON FURNITURE, SALESPERSON FURNITURE-C Primary Care Provider Active Team Status: Inactive Member Role Status Dates Dr. Teodoro Chris DO Attending Provider, Emergency Danielle roberts Active Alondra Pelletier SALESPERSON FURNITURE, SALESPERSON FURNITURE-C Primary Care Provider Active Team Status: Inactive Member Role Status Dates Alondra Pelletier SALESPERSON FURNITURE, SALESPERSON FURNITURE-C Primary Care Provider Active Benjamín Green MD Attending Provider, Referring Prov ider Active Biomedical Engineering Technologist Relationship Specialty Start Date End Date Murphy Cuevas MD [address] [place], [place] [id number] PCP - General Internal Medicine 10/05/20 Biomedical Engineering Technologist Relationship Specialty Start Date End Date Murphy Cuevas MD [address] [place], [place] [id number] PCP - General Internal Medicine 10/05/20 Biomedical Engineering Technologist Relationship Specialty Start Date End Date Murphy Cuevas MD [address] [place] [address] PCP - General Internal Medicine 10/05/20 Biomedical Engineering Technologist Relationship Specialty Start Date End Date Murphy Cuevas MD [address] [place] [address] PCP - General Internal Medicine 10/05/20 Biomedical Engineering Technologist Relationship Specialty Start Date End Date Murphy Cuevas MD [address] [place] [address] PCP - General Internal Medicine 10/05/20 Biomedical Engineering Technologist Relationship Specialty Start Date End Date Murphy Cuevas MD [address] [place] [address] PCP - General Internal Medicine 10/05/20 Team Status: Active Member Role Status Dates CHRISTINA MARTIN , SALESPERSON FURNITURE-C Primary Care Provider Active Team Status: Inactive Member Role Status Dates Dr. Abdirahman Mensah MD Attending Provider, Referr ing Provider Active CHRISTINA MARTIN , SALESPERSON FURNITURE-C Primary Care Provider Active Biomedical Engineering Technologist Relationship Specialty Start Date End Date Murphy Cuevas MD [address] [place] [address] PCP - General Internal Medicine 10/05/20 Biomedical Engineering Technologist Relationship Specialty Start Date End Date Murphy Cuevas MD [address] [place], [place] [id number] PCP - General Internal Medicine 10/05/20 Team Status: Inactive Member Role Status Dates CHRISTINA MARTIN , SALESPERSON FURNITURE-C Primary Care Provider Active Dr. Marcos Puente MD Attending Provider, Referring P armando Active Biomedical Engineering Technologist Relationship Specialty Start Date End Date Murphy Cuevas MD [address] [place], [place] [address] PCP - General Internal Medicine 10/05/20 Team Status: Inactive Member Role Status Dates CHRISTINA MARTIN , SALESPERSON FURNITURE-C Primary Care Provider, Referring Prov ider Active Benjamín Green MD Attending Provider Active Team Status: Inactive Member Role Status Dates CHRISTINA MARTIN , SALESPERSON FURNITURE-C Primary Care Provider Active Benjamín Green MD Attending Provider, Referring Prov ider Active Biomedical Engineering Technologist Relationship Specialty Start Date End Date Murphy Cuevas MD [address] [place] [address] PCP - General Internal Medicine 10/05/20 Biomedical Engineering Technologist Relationship Specialty Start Date End Date Murphy Cuevas MD [address] [place] [address] PCP - General Internal Medicine 10/05/20 Biomedical Engineering Technologist Relationship Specialty Start Date End Date Murphy Cuevas MD [address] [place] [address] PCP - General Internal Medicine 10/05/20 Biomedical Engineering Technologist Relationship Specialty Start Date End Date Murphy Cuevas MD [address] [place] [address] PCP - General Internal Medicine 10/05/20 Biomedical Engineering Technologist Relationship Specialty Start Date End Date Murphy Cuevas MD [address] [place] [address] PCP - General Internal Medicine 10/05/20 Biomedical Engineering Technologist Relationship Specialty Start Date End Date Murphy Cuevas MD [address] [place], [place] [address] PCP - General Internal Medicine 10/05/20 Biomedical Engineering Technologist Relationship Specialty Start Date End Date Murphy Cuevas MD [address] [place] [address] PCP - General Internal Medicine 10/05/20 Biomedical Engineering Technologist Relationship Specialty Start Date End Date Murphy Cuevas MD [address] [place] [address] PCP - General Internal Medicine 10/05/20 Biomedical Engineering Technologist Relationship Specialty Start Date End Date Murphy Cuevas MD [address] [place] [address] PCP - General Internal Medicine 10/05/20 Biomedical Engineering Technologist Relationship Specialty Start Date End Date Murphy Cuevas MD [address] [place] [address] PCP - General Internal Medicine 10/05/20 Biomedical Engineering Technologist Relationship Specialty Start Date End Date Murphy Cuevas MD [address] [place] [address] PCP - General Internal Medicine 10/05/20 Biomedical Engineering Technologist Relationship Specialty Start Date End Date Murphy Cuevas MD [address] [place] [address] PCP - General Internal Medicine 10/05/20 Biomedical Engineering Technologist Relationship Specialty Start Date End Date Murphy Cuevas MD [address] [place] [address] PCP - General Internal Medicine 10/05/20 Biomedical Engineering Technologist Relationship Specialty Start Date End Date Murphy Cuevas MD [address] [place] [address] PCP - General Internal Medicine 10/05/20 Team Status: Inactive Member Role Status Dates CHIRSTINA MARTIN SALESPERSON FURNITURE-C Primary Care Provider Active St art: July 04, 2024 End: July 04, 2024 CHRISTINA MARTIN , SALESPERSON FURNITURE-C Referring Provider Active Start : July 04, 2024 End: July 04, 2024 Melba Pinon SALESPERSON FURNITURE-C Attending Provider Active Start: July 04, 2024 End: July 04, 2024 Team Status: Inactive Member Role Status Dates CHRISTINA MARTIN SALESPERSON FURNITURE-C Primary Care Provider Active St art: September 13, 2024 End: September 13, 2024 CHRISTINA MARTIN SALESPERSON FURNITURE-C Referring Provider Active Start : September 13, 2024 End: September 13, 2024 Melba Pinon SALESPERSON [employer]URNITURE-C Attending Provider Active Start: September 13, 2024 End: September 13, 2024 Team Status: Inactive Member Role Status Dates CHRISTINA MARTIN SALESPERSON FURNITURE-C Primary Care Provider Active St art: October 14, 2024 End: October 14, 2024 Melba Pinon SALESPERSON FURNITURE-C Attending Provider Active Start: October 14, 2024 End: October 14, 2024 Melba Pinon SALESPERSON FURNITURE-C Referring Provider Active Start: October 14, 2024 End: October 14, 2024 Team Status: Inactive Member Role Status Dates CHRISTINA MARTIN SALESPERSON FURNITURE-C Primary Care Provider Active St art: October 24, 2024 End: October 24, 2024 CHRISTINA MARTIN SALESPERSON FURNITURE-C Referring Provider Active Start : October 24, 2024 End: October 24, 2024 Melba Pinon SALESPERSON [employer]URNITURE-C Attending Provider Active Start: October 24, 2024 End: October 24, 2024 Biomedical Engineering Technologist Relationship Specialty Start Date End Date Murphy Cuevas MD [address] [place], [place] [id number] PCP - General Internal Medicine 10/05/20 Christina Martin APRN.CNP [address] [place], [place] [id number] [employer] [facility] Internal [facility] 04/24/24 Team Status: Inactive Member Role Status Dates CHRISTINA MARTIN , SALESPERSON FURNITURE-C Primary Care Provider Active St art: November 08, 2024 End: November 08, 2024 CHRISTINA MARTIN , [employer]ESPERSON [employer]URNITURE-C Referring Provider Active Start : November 08, 2024 End: November 08, 2024 Dr. Dhiraj King DO Attending Provider Active Start: November 08, 2024 End: November 08, 2024 Team Status: Active Member Role Status Dates CHRISTINA MARTIN , SALESPERSON FURNITURE-C Primary Care Provider Active St art: November 08, 2024 CHRISTINA MARTIN , SALESPERSON FURNITURE-C Referring Provider Active Start : November 08, 2024 Dr. Dhiraj King , Attending Provider Active Start: November 08, 2024 Dr. Dhiraj King , Other Provider Active St art: November 08, 2024 Team Status: Active Member Role/Relationship Status Dates CHRISTINA MARTIN , SALESPERSON FURNITURE-C Primary Care Provider Active Team Status: Inactive Member Role/Relationship Status Dates CHRISTINA MARTIN , SALESPERSON FURNITURE-C Primary Care Provider Active St art: September 13, 2024 End: September 13, 2024 CHRISTINA MARTIN , SALESPERSON FURNITURE-C Referring Provider Active Start : September 13, 2024 End: September 13, 2024 Melba Pinon SALESPERSON FURNITURE-C Attending Provider Active Start: September 13, 2024 End: September 13, 2024 Team Status: Inactive Member Role/Relationship Status Dates CHRISTINA MARTIN , SALESPERSON FURNITURE-C Primary Care Provider Active St art: October 14, 2024 End: October 14, 2024 Melba Pinon SALESPERSON FURNITURE-C Attending Provider Active Start: October 14, 2024 End: October 14, 2024 Melba Pinon SALESPERSON FURNITURE-C Referring Provider Active Start: October 14, 2024 End: October 14, 2024 Team Status: Inactive Member Role/Relationship Status Dates CHRISTINA MARTIN , SALESPERSON FURNITURE-C Primary Care Provider Active St art: October 24, 2024 End: October 24, 2024 CHRISTINA MARTIN , SALESPERSON FURNITURE-C Referring Provider Active Start : October 24, 2024 End: October 24, 2024 Melba Pinon SALESPERSON FURNITURE-C Attending Provider Active Start: October 24, 2024 End: October 24, 2024 Team Status: Inactive Member Role/Relationship Status Dates CHRISTINA OLDER , SALESPERSON FURNITURE-C Primary Care Provider Active St art: November 08, 2024 End: November 08, 2024 CHRISTINA MARTIN , SALESPERSON FURNITURE-C Referring Provider Active Start : November 08, 2024 End: November 08, 2024 Dr. Dhiraj King DO Attending Provider Active Start: November 08, 2024 End: November 08, 2024 Team Status: Active Member Role/Relationship Status Dates CHRISTINA MARTIN , SALESPERSON FURNITURE-C Primary Care Provider Active St art: November 08, 2024 CHRISTINA MARTIN , SALESPERSON FURNITURE-C Referring Provider Active Start : November 08, 2024 Dr. Dhiraj King DO Attending Provider Active Start: November 08, 2024 Dr. Dhiraj King DO Other Provider Active St art: November 08, 2024 Team Status: Inactive Member Role/Relationship Status Dates CHRISTINA MARTIN , SALESPERSON FURNITURE-C Primary Care Provider Active St art: December 03, 2024 End: December 03, 2024 Melba Pinon SALESPERSON FURNITURE-C Attending Provider Active Start: December 03, 2024 End: December 03, 2024 Melba Pinon SALESPERSON FURNITURE-C Referring Provider Active Start: December 03, 2024 End: December 03, 2024 Team Status: Inactive Member Role/Relationship Status Dates CHRISTINA MARTIN , SALESPERSON FURNITURE-C Primary Care Provider Active St art: December 15, 2024 End: December 15, 2024 CHRISTINA MARTIN , SALESPERSON FURNITURE-C Referring Provider Active Start : December 15, 2024 End: December 15, 2024 Melba Pinon SALESPERSON FURNITURE-C Attending Provider Active Start: December 15, 2024 End: December 15, 2024 Team Status: Inactive Member Role/Relationship Status Dates CHRISTINA MARTIN , SALESPERSON FURNITURE-C Primary Care Provider Active St art: December 16, 2024 End: December 16, 2024 Melba Pinon SALESPERSON FURNITURE-C Attending Provider Active Start: December 16, 2024 End: December 16, 2024 Melba Pinon SALESPERSON FURNITURE-C Referring Provider Active Start: December 16, 2024 End: December 16, 2024 Team Status: Inactive Member Role/Relationship Status Dates CHRISTINA OLDER , SALESPERSON FURNITURE-C Primary Care Provider Active St art: December 29, 2024 End: December 29, 2024 CHRISTINA MARTIN , SALESPERSON FURNITURE-C Referring Provider Active Start : December 29, 2024 End: December 29, 2024 NANO Munson Attending Provider Active Start: December 29, 2024 End: December 29, 2024 Biomedical Engineering Technologist Relationship Specialty Start Date End Date Murphy Cuevas MD [address] [place] [address] PCP - General Internal Medicine 10/05/20 OlderChristina APRN.SUSPENDER MAKER [address] [place] [address] [employer] [facility] Internal Medicine 04/24/24 Biomedical Engineering Technologist Relationship Specialty Start Date End Date Murphy Cuevas MD [address] [place] [address] PCP - General Internal Medicine 10/05/20 Christina Martin APRN.SUSPENDER MAKER [address] [place] [address] [employer] Internal Medicine 04/24/24 Biomedical Engineering Technologist Relationship Specialty Start Date End Date Murphy Cuevas MD [address] [place], [place] [id number] PCP - General Internal Medicine 10/05/20 Christina Martin APRN.SUSPENDER MAKER [address] [place] [address] [employer] [facility] Internal Medicine 04/24/24 Team Status: Active Member Role/Relationship Status Dates CHRISTINA MARTIN NP-[place] Primary care physician Active Team Status: Inactive Member Role/Relationship Status Dates CHRISTINA MARTIN NP-[place] Primary care physician Active S tart: October 14, 2024 End: October 14, 2024 NANO Munson Attending physician Active Start: October 14, 2024 End: October 14, 2024 NANO Munson Referring Provider Active Start: October 14, 2024 End: October 14, 2024 Team Status: Inactive Member Role/Relationship Status Dates CHRISTINA OLDER , SALESPERSON FURNITURE-C Primary care physician Active S tart: October 24, 2024 End: October 24, 2024 CHRISTINA OLDER , SALESPERSON FURNITURE-C Referring Provider Active Start : October 24, 2024 End: October 24, 2024 Melba Pinon NP-C Attending physician Active Start: October 24, 2024 End: October 24, 2024 Team Status: Inactive Member Role/Relationship Status Dates CHRISTINA OLDER , SALESPERSON FURNITURE-C Primary care physician Active S tart: November 08, 2024 End: November 08, 2024 CHRISTINA OLDER , SALESPERSON FURNITURE-C Referring Provider Active Start : November 08, 2024 End: November 08, 2024 Dr. Dhiraj King DO Attending physician Active Start: November 08, 2024 End: November 08, 2024 Team Status: Active Member Role/Relationship Status Dates CHRISTINA OLDER , SALESPERSON FURNITURE-C Primary care physician Active S tart: November 08, 2024 CHRISTINA OLDER , SALESPERSON FURNITURE-C Referring Provider Active Start : November 08, 2024 Dr. Dhiraj King DO Attending physician Active Start: November 08, 2024 Dr. Dhiraj King DO Nurse Practitioner Active Start: November 08, 2024 Team Status: Inactive Member Role/Relationship Status Dates CHRISTINA OLDER , SALESPERSON FURNITURE-C Primary care physician Active S tart: December 03, 2024 End: December 03, 2024 Melba Pinon SALESPERSON FURNITURE-C Attending physician Active Start: December 03, 2024 End: December 03, 2024 Melba Pinon SALESPERSON FURNITURE-C Referring Provider Active Start: December 03, 2024 End: December 03, 2024 Team Status: Inactive Member Role/Relationship Status Dates CHRISTINA OLDER , SALESPERSON FURNITURE-C Primary care physician Active S tart: December 15, 2024 End: December 15, 2024 CHRISTINA OLDER , SALESPERSON FURNITURE-C Referring Provider Active Start : December 15, 2024 End: December 15, 2024 Melba Pinon SALESPERSON FURNITURE-C Attending physician Active Start: December 15, 2024 End: December 15, 2024 Team Status: Inactive Member Role/Relationship Status Dates CHRISTINA OLDER , SALESPERSON FURNITURE-C Primary care physician Active S tart: December 16, 2024 End: December 16, 2024 Melba Pinon NP-C Attending physician Active Start: December 16, 2024 End: December 16, 2024 Melba Pinon SALESPERSON FURNITURE-C Referring Provider Active Start: December 16, 2024 End: December 16, 2024 Team Status: Inactive Member Role/Relationship Status Dates CHRISTINA MARTIN SALESPERSON FURNITURE-C Primary care physician Active S tart: December 29, 2024 End: December 29, 2024 CHRISTINA MARTIN SALESPERSON FURNITURE-C Referring Provider Active Start : December 29, 2024 End: December 29, 2024 Melba Pinon SALESPERSON FURNITURE-C Attending physician Active Start: December 29, 2024 End: December 29, 2024 Team Status: Active Member Role/Relationship Status Dates CHRISTINA MARTIN SALESPERSON FURNITURE-C Primary care physician Active S tart: January 25, 2025 Melba Pinon SALESPERSON FURNITURE-C Attending physician Active Start: January 25, 2025 Melba Pinon SALESPERSON FURNITURE-C Referring Provider Active Start: January 25, 2025 Team Status: Inactive Member Role/Relationship Status Dates CHRISTINA MARTIN SALESPERSON FURNITURE-C Primary care physician Active S tart: February 02, 2025 End: February 02, 2025 CHRISTINA MARTIN SALESPERSON FURNITURE-C Referring Provider Active Start : February 02, 2025 End: February 02, 2025 Melba Pinon SALESPERSON FURNITURE-C Attending physician Active Start: February 02, 2025 End: February 02, 2025 Goals (unrecognized section and content) Goals may [...] section and content) DATE CREATED AUTHOR 10/30/2023 Igor christopher DATE CREATED AUTHOR AUTHOR'S ORGANIZ ATION 01/20/2025 [facility] DATE CREATED AUTHOR AUTHOR'S ORGANIZ ATION 02/08/2025 [facility] FOR RECORDS PERTAINING TO PATIENTS WHO [...] BE BASED ON THE PRIMARY CLINICAL RECORDS. [facility] [employer] [facility]. provides no warranty or guarantee of the accuracy or completeness of information in this document.
== END | disposition home or self-care (01) ==
LOC: US 07:07
PROVIDERS: PCP Nurse Practitioner; Referring Provider Nurse Practitioner Acute Care; Visit Provider Nurse Practitioner Acute Care
DX: R10.33 Periumbilical pain (principal); K22.70 Barrett's esophagus without dysplasia; K29.40 Chronic atrophic gastritis without bleeding; K59.02 Outlet dysfunction constipation; R68.81 Early satiety
CPT/HCPCS: 76705

== ENCOUNTER → 2025-02-17 | Outpatient (CLI) | payer MEDICARE, OTHER, SELFPAY ==
--- NOTE | 2025-02-17 07:14 | NM_ITS ---
PROCEDURE: GASTRIC EMPTYING STUDY - 4 HR 02/17/2025 REASON FOR EXAM: ABDOMINAL PAIN, EARLY SATIETY COMPARISON: None. TECHNIQUE: Procedure Code: [id number] Modality: NM Procedure: GASTRIC EMPTYING STUDY - 4 HR The patient ingested a standard meal of 2 eggs, 2 slices of toast, 2 pads of butter, and 6 oz of water. There was no vomiting postprandially. Anterior and posterior planar images of the upper abdomen were obtained for 1 minute immediately following the meal at 1h, 2h and 4h if more than 10% of the activity persisted within the stomach. Regions of interest were drawn, and a geometric mean was used to calculate a [id number]. Medications taken in the past 24 hours that may affect gastric emptying: None RADIOPHARMACEUTICAL: Oral administration of 1.1 mCi technetium 99 M sulfur colloid within the solid meal. FINDINGS: During the time of imaging, gastroesophageal reflux was not seen. Linear fit gastric emptying half-time of 154.26 minutes. Percent activity remaining in stomach: 1 hour 81 % (normal 37-90%) 2 hours: 63 % (normal 30-60%) 4 hours: 27 % (normal 0-10%) NM/Gastric Emptying Study - 4 HR IMPRESSION: Delayed/diminished solid phase gastric emptying. Reading Location: [place] [id number]
--- OUTSIDE RECORDS SUMMARY | 2025-02-17 07:28 | XMS RPT_ITS | CCD ---
Author Organization [facility] Care Team Providers Care Photoengraving Sketch Maker Name Role Phone Murphy Cuevas MD Primary [...] Provider MD Benjamín Green Other Provider Haagen PRINTER TECHNICIAN, PRINTER TECHNICIAN-C Alondra Primary Care Provider Murphy Cuevas MD Primary Care Provider Haagen PRINTER TECHNICIAN, PRINTER TECHNICIAN-C Alondra Referring Provider OLDER, PRINTER TECHNICIAN-C CHRISTINA Primary Care Provider OLDER, PRINTER TECHNICIAN-C CHRISTINA Referring Provider MD Benjamín Green Attending Provider Murphy Cuevas MD Primary Care Provider MICHAEL MANZANARES Attending Unavailable MICHAEL MANZANARES Admitting Unavailable MURPHY CUEVAS Primary Care Unavailable OLDER PRINTER TECHNICIAN-C, CHRISTINA Primary Care Provider OLDER PRINTER TECHNICIAN-C, CHRISTINA Referring Provider Zi PRINTER TECHNICIAN-C, Melba Attending Provider Zi PRINTER TECHNICIAN-C, Melba Referring Provider Older ELECTROCHEMIST.IMMIGRATION CONSULTANT, Christina Unavailable OLDER PRINTER TECHNICIAN-C, CHRISTINA Primary Care Provider OLDER PRINTER TECHNICIAN-C, CHRISTINA Referring Provider Zi PRINTER TECHNICIAN-C, Melba Attending Provider Dr. Dhiraj King DO Attending Provider Dr. Dhiraj King DO Other Provider [phone] GANTA, MURPHY Referring Unavailable GANTA, MURPHY Primary [...] Unavailable GANTA, MURPHY Primary Care Unavailable OLDER PRINTER TECHNICIAN-C, CHRISTINA Primary Care Physician Zi PRINTER TECHNICIAN-C, Melba Attending Physician OLDER PRINTER TECHNICIAN-C, CHRISTINA Referring Provider Dr. Dhiraj King DO Attending Physician Dr. Dhiraj King DO Nurse Practitioner OLDER, CHRISTINA Referring Unavailable OLDER, CHRISTINA Primary Care Unavailable Zi, Melba Attending Unavailable OLDER, CHRISTINA Referring Unavailable Zi, Melba Attending Unavailable OLDER, CHRISTINA Primary Care Unavailable OLDER, CHRISTINA Primary Care Unavailable OLDER, CHRISTINA Referring Unavailable Zi, Melba Attending Unavailable Wartmann, Christopher Referring Unavailabl e Wartmann, Christopher Attending Unavailabl e OLDER, CRHISTINA Primary Care Unavailable Zi, Melba Referring Unavailable OLDER, CHRISTINA Primary Care Unavailable Zi, Melba Attending Unavailable Zi, Melba Referring Unavailable OLDER, CHRISTINA Primary Care Unavailable Zi, Melba Attending Unavailable OLDER, CHRISTINA Primary Care Unavailable Zi, Melba Attending Unavailable Zi, Melba Referring Unavailable OLDER, CHRISTINA Primary Care Unavailable Zi, Melba Attending Unavailable OLDER, CHRISTINA Primary Care Unavailable Wartmann, Christopher Referring Unavailabl e Wartmann, Christopher Attending Unavailabl e Zi, Melba Referring Unavailable OLDER, CHRISTINA Primary [...] CHRISTINA Referring Unavailable Friend, Dhiraj Attending Unavailable AtanasTrish rawls Consulting Unavailable Friend, Dhiraj Consulting Unavailable Friend, Dhiraj Attending Unavailable Friend, Dhiraj Consulting Unavailable OLDER, CHRISTINA Primary Care Unavailable OLDER, CHRISTINA Referring Unavailable OLDER, CHRISTINA Primary Care Unavailable OLDER, CHRISTINA Referring Unavailable Zi, Melba Attending Unavailable OLDER, CHRISTINA Primary Care Unavailable Zi, Melba Attending Unavailable Zi, Melba Referring Unavailable OLDER, CHRISTINA Primary Care Unavailable Zi, Melba Referring Unavailable Zi, Melba Attending Unavailable Zi, Melba Referring Unavailable OLDER, CHRISTINA Primary Care Unavailable Zi, Melba Attending Unavailable Zi, Melba Referring Unavailable OLDER, CHRISTINA Primary Care Unavailable Zi, Melba Attending Unavailable Friend, Dhiraj Attending Unavailable OLDER, CHRISTINA Primary Care Unavailable OLDER, CHRISTINA Referring Unavailable OLDER, CHRISTINA Referring Unavailable Friend, Dhiraj Attending Unavailable Atanasov, Trish Consulting Unavailable OLDER, CHRISTINA Primary Care Unavailable Medications Current Medications Medication Drug Class(es) [...] ascorbic acid 226 mg / beta carotene 88007 unt / cuprous oxide 0.8 mg / dl-alpha tocopheryl acetate 200 unt / zinc oxide 34.8 mg oral capsule (1 source) Vitamin C Start: 12-19-2021 Vitamins A,C,H-Ntdc-Dfhzbl (Preservision Areds) 14,320-226-200 vrei-zq-hocw capsule Active 1 NMA PO TWICE A [...] (DR/EC) Discontinued 20 mg PO daily 90 1 December 15, 2024 12:00am December 29, 2024 1:26pm take once daily 30 minutes before breakfast every morning polyethylene glycol 3350 50031 mg powder for oral solution (2 sources) [...] Comment on above: Take 1 tablet by [facility] once daily. Vitamins A,C,X-Aqzr-Dvbxse (Preservision Areds) 14,320-226-200 qqqf-pu-rxvu capsule (16 sources) Start: 12-19-2021 Vitamins A,C,O-Gtdy-Tqytkw (Preservision Areds) 14,320-226-200 cpfd-im-tffh capsule Active 1 NMA PO TWICE A DAY December 19, 2021 12:00am Start: 12-19-2021 take 1 capsule by [facility] twice daily Vitamins A,C,Z-Xjjc-Onfsmd (Preservision Areds) 14,320-226-200 ncij-ys-kdeu capsule Active 1 CAP PO TWICE A DAY December 18, 2021 11:00pm Start: 12-19-2021 take 1 capsule by [facility] twice daily Vitamins A,C,L-Rrse-Livfhv (Preservision Areds) 14,320-226-200 bgas-lu-alup capsule Active 1 CAP PO TWICE A [...] tablet by annie one time a week. biotin 1 mg oral capsule (1 source) End: 06-18-2021 biotin 1 mg cap Take by mouth. 06/18/2021 Discontinued C,E,zinc,copper 07-dbxpn4w-elp (OCUVITE ADULT 50 PLUS) 250-5-1 mg cap (6 sources) Start: 05-22-2018 End: 02-06-2022 C,E,zinc,copper 58-krzun4s-dtn (OCUVITE ADULT 50 PLUS) 250-5-1 mg cap Take 1 capsule by mouth once daily. 05/22/2018 02/06/2022 Discontinued Start: 05-22-2018 End: 02-06-2022 C,E,zinc,copper 98-czrdj5h-w ut (OCUVITE ADULT 50 PLUS) 250-5-1 mg cap Take 1 capsule by mouth once daily. 0 05/22/2018 02/06/2022 Discontinued Start: 05-22-2018 C,E,zinc,coppe r 27-czfnq6w-ftz (OCUVITE ADULT 50 PLUS) 250-5-1 mg cap Take 1 capsule by mouth once daily. 0 05/22/2018 Active Comment on above: Take 1 capsule by mo [facility] once daily. calcium carbonate 1250 mg chewable tablet (20 sources) Start: 12-19-2021 End: 01-25-2025 take 1 tablet by mouth once daily Calcium Carbonate (Calcium 500) 500 mg calcium (1,250 mg) tablet,chewable Discontinued 500 mg PO DAILY December 19, 2021 12:00am January 25, 2025 10:16am Start: 05-22-2018 take 0.5 tablet by m [...] meal/snack Start: 12-19-2021 take 1 capsule by [facility] once daily Glucosamine-Chondroitin Active 1 CAP PO DAILY December 19, 2021 12:00am give with meal/snack End: 10-16-2023 glucosamine/chondr craft A sod (GLUCOSAMINE-CHONDROITIN) 750-600 mg tab Take by mouth twice daily. 10/16/2023 Discontinued Comment on above: Take by mouth twice daily. dicyclomine hydrochloride 10 mg oral capsule (8 sources) Anticholinergic Start: 04-25-20 24 End: 10-25-19 take 1 capsule by mouth three times daily as needed for pain Dicyclomine 10 mg capsule Discontinued 10 mg PO THREE TIMES A DAY as needed for abdominal pain 60 1 April 25, 2024 1:00am October 24, 2024 9:03am fluticasone propionate 0.05 mg/actuat metered dose nasal spray (20 sources) Corticosteroid Start: 09-02-19 End: 01-05-20 take 2 spray(s) by mouth once daily [...] 8 ug PO TWICE A DAY 60 1 October 24, 2024 12:00am December 15, 2024 [...] 50 mg PO TWICE A DAY 60 2 September 13, 2024 12:00am October 24, 2024 8:57am must administer immediately before breakfast and dinner Tenapanor (Ibsrela) 50 mg tablet (7 sources) Start: 09-13-2024 End: 10-24-2024 take 1 tablet by mouth twice daily before breakfast Tenapanor (Ibsrela) 50 mg tablet Discontinued 50 mg PO TWICE A DAY 60 2 September 13, 2024 12:00am October 24, 2024 [...] 10-16-2023 Chronic Other aftercare (1 source) 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; Translations: [Medication management] [...] Name Value Interpretation Reference Range Facility Abdomen Limitedon 02-09-2025 Abdomen Limited [facility] Imaging Services [address] [place] [address] Abdomen Limited MR#: [id number] Acct: [id number] Name: PHYLLIS SANCHEZ Rep #: [id number] : 1950 F 74 From: Ruiz Bryson MD PCP: NANO BURLESON Status: REG CLI Study: Abdomen Limited Date of Exam: 02/09/25 Exam# [id number] Ordering Dr: Melba Pinon PROCEDURE: ABDOMEN LIMITED 02/09/2025 REASON FOR EXAM: ABDOMINAL PAIN TECHNIQUE: Procedure Code: USABDL Modality: US Procedure: ABDOMEN LIMITED COMPARISON: None. FINDINGS: Liver: Grossly normal size and echotexture. The liver measures 13.1 cm in vertical dimension in the midclavicular line. There is normal hepatopetal flow in the portal venous system. Gallbladder: No stones, sludge, wall thickening or tenderness. Common bile duct: 3 mm. Pancreas: Visualized portions are sonographically unremarkable. Other: The kidney measures 8.8 x 5.0 x 3.9 cm. Normal cortical thickness. No hydronephrosis. No right upper quadrant ascites. US/Abdomen Limited IMPRESSION: NORMAL RIGHT UPPER QUADRANT ULTRASOUND. Reading Location: [facility] CC: NANO MARTIN; PRINTER TECHNICIAN-C Melba Pinon Rn Relief Charge: Signed Normal [facility] Abdomen Single Viewon 2024 Abdomen Single View [facility] Imaging Services [address] [place] [address] Abdomen Single View MR#: [id number] Acct: [id number] Name: PHYLLIS SANCHEZBRENDA Rep #: [id number] : 1950 F 74 From: Ruiz Bryson MD PCP: NANO BURLESON Status: REG CLI Study: Abdomen Single View Date of Exam: 02/08/25 Exam# [id number] Ordering Dr: Melba Pinon PROCEDURE: ABDOMEN SINGLE VIEW 02/08/2025 REASON FOR EXAM: DAY 5 SITZ MARKER TECHNIQUE: Procedure Code: RADABD Modality: DX Procedure: ABDOMEN SINGLE VIEW COMPARISON: KUB, 02/06/2025 FINDINGS: There is a nonobstructive bowel gas pattern. There are no abnormal soft tissue calcifications or radiopaque foreign bodies. 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 RAD/Abdomen Single View IMPRESSION: No evidence of acute abdominal pathology. No Sitz markers remain in the gastrointestinal tract. Reading Location: [id number] CC: NANO MARTIN; NANO Pinon Rn Relief Charge: Signed Normal [facility] Abdomen Single Viewon 2024 Abdomen Single View [facility] Imaging Services [address] [place], [place] [id number] Abdomen Single View MR#: [id number] Acct: [id number] Name: PHYLLIS SANCHEZ Rep #: [id number] : 1950 F 74 From: Chris Allison MD PCP: NANO BURLESON Status: REG CLI Study: Abdomen Single View Date of Exam: 02/06/25 Exam# [id number] Ordering Dr: Melba Pinon PROCEDURE: ABDOMEN SINGLE [...] descending colon. Reading Location: [facility] CC: NANO Pinon Rn Relief Charge: Signed Normal [facility] Gastroenterology Visit Repor ton 02-02-2025 Gastroenterology Visit Report [facility] Gastroenterology [address] [place] [address] OFFICE VISIT Date of Service: 02/02/25 MR#: [id number] Acct: [id number] Name: PHYLLIS SANCHEZ Rep #: [id number] : 1950 Provider: NANO santa Age/Sex: 74/F Location: [facility] Status: Signed Intake Vital Signs 12/29/24 13:10 [...] DAILY 12/19/21 History mcg disintegrating tablet vitamins A,C,S-ajhs-tjhhhz 4,296 1 cap PO BID 12/19/21 02/02/25 [...] short lived - denies any N/V - "feels like a blockage" - denies an (more content not included)... Normal [facility] Enterography Abd/Yan 01-25 Enterography Abd/Pel [facility] Imaging Services [address] [place], [place] [address] Enterography Abd/Pel MR#: [id number] Acct: [id number] Name: PHYLLIS SANCHEZ Rep #: [id number] : 1950 F 74 From: Jhoan dunaway MD PCP: NANO BURLESON Status: REG CLI Study: Enterography Abd/Pel Date of Exam: 01/25/25 Exam# [id number] Ordering Dr: Melba Pinon ADDENDUM by Dr. Jhoan Montiel MD on 01/30/25 at 0448 9 cc of Clariscan were injected intravenously. Post gadolinium images were obtained. Reading Location: [facility] 01/30/25447 Date cc: NANO MARTIN; NANO Pinon * Signed EXAM: ENTEROGRAPHY ABD/PEL 01/25/2025 [...] obvious masses. Colonic fecal loading. Reading Location: [place] [address] CC: NANO MARTIN; NANO Pinon Rn Relief Charge: Signed [facility] 01[facility]17-2025 [facility] ----- PHYLLIS SANCHEZ ([id number]) 1950 F Date Time Provider Department 01/17/25 [...] Date Reviewed: 01/04/2025 Reviewed by: Christina Martin APRN.IMMIGRATION CONSULTANT - Fully Assessed Reason for Visit: Orders [681] Primary Visit Diagnosis:Encounter for screening mammogram for breast cancer [Z12.31] Order(s):[facility] SCREENING W [place]ILES [3252196] Order #: [id number] FUTURE Prescriptions as of 01/18/2025 - pantoprazole [...] Status:Closed by MIRLANDE MASCORRO on 01/18/25 Normal [facility] 25([place])D3 [facility] 25-hydroxyvitamin D3 [Mass/Vol] 64.2 ng/mL Normal 31.0-80.0 [facility] Comment on above: Order Comment: Speci men Type: BLOOD SPECIMENOrdering Facility: [facility] Address: [address] [place] [address] Performed By: #### 1 989-3 ####[facility] [id number] [place] [address] [place] CBC panel Auto (Bld)on 01-05 Erythrocyte distribution width (RBC) [Ratio] 13.2 % Normal 11.5-15.0 [facility] Comment on above: Order Comment: Speci men Type: BLOOD SPECIMENOrdering Facility: [facility] Address: [address] [place] [address] Performed By: #### 5 8410-2 ####[facility] [id number] [place] [address] [place] Hematocrit (Bld) [Volume fraction] 45.9 % Normal 36.0-46.0 [facility] Comment on above: Order Comment: Speci men Type: BLOOD SPECIMENOrdering Facility: [facility] Address: [address] [place] [address] Performed By: #### 5 8410-2 ####[facility] [id number] [place] [id number] [place] Hemoglobin (Bld) [Mass/Vol] 14.7 g/dL Normal 11.5-15.5 [facility] Comment on above: Order Comment: Speci men Type: BLOOD SPECIMENOrdering Facility: [facility] Address: [address] [place] [address] Performed By: #### 5 8410-2 ####[facility] [id number] [place] [id number] [place] MCH (RBC) [Entitic mass] 30.5 pg Normal 26.0-34.0 [facility] Comment on above: Order Comment: Speci men Type: BLOOD SPECIMENOrdering Facility: [facility] Address: [address] [place] [address] Performed By: #### 5 8410-2 ####[facility] [id number] [place] [address] [place] MCHC (RBC) [Mass/Vol] 32.0 g/dL Normal 30.5-36.0 [facility] Comment on above: Order Comment: Speci men Type: BLOOD SPECIMENOrdering Facility: [facility] Address: [address] [place] [address] Performed By: #### 5 8410-2 ####[facility] [id number] [place] [address] [place] MCV (RBC) [Entitic vol] 95.2 fL Normal 80.0-100.0 [facility] Comment on above: Order Comment: Speci men Type: BLOOD SPECIMENOrdering Facility: [facility] Address: [address] [place] [address] Performed By: #### 5 8410-2 ####[facility] [id number] [place] [address] [place] Nucleated RBC (Bld) [#/Vol] 10*3/uL Normal <0.01 [facility] Comment on above: Order Comment: Speci men Type: BLOOD SPECIMENOrdering Facility: [facility] Address: [address] [place] [address] Performed By: #### 5 8410-2 ####[facility] [id number] [place] [address] [place] Platelet mean volume (Bld) [Entitic vol] 11.0 fL Normal 9.0-12.7 [facility] Comment on above: Order Comment: Speci men Type: BLOOD SPECIMENOrdering Facility: [facility] Address: [address] [place] [address] Performed By: #### 5 8410-2 ####[facility] [id number] [place] [id number] [place] Platelets (Bld) [#/Vol] 254 10*3/uL Normal 150-400 [facility] Comment on above: Order Comment: Speci men Type: BLOOD SPECIMENOrdering Facility: [facility] Address: [address] [place] [address] Performed By: #### 5 8410-2 ####[facility] [id number] [place] [id number] [place] RBC (Bld) [#/Vol] 4.82 10*6/uL Normal 3.90-5.20 [facility] Comment on above: Order Comment: Speci men Type: BLOOD SPECIMENOrdering Facility: [facility] Address: [address] [place] [address] Performed By: #### 5 8410-2 ####[facility] [id number] [place] [id number] [place] WBC (Bld) [#/Vol] 4.39 10*3/uL Normal 3.70-11.00 [facility] Comment on above: Order Comment: Speci men Type: BLOOD SPECIMENOrdering Facility: [facility] Address: [address] [place] [address] Performed By: #### 5 8410-2 ####[facility] [id number] [place] [id number] [place] Comprehensive metabolic 2000 panelon 01-05-2025 Albumin [Mass/Vol] 4.4 g/dL Normal 3.9-4.9 [facility] Comment on above: Order Comment: Speci men Type: BLOOD SPECIMENOrdering Facility: [facility] Address: [address] [place] [address] Performed By: #### 2 4323-8, 97672-3, 31742-8, 277- ####[facility] [id number] [address] [address] [place] ALP [Catalytic activity/Vol] 86 U/L Normal 34-123 [facility] Comment on above: Order Comment: Speci men Type: BLOOD SPECIMENOrdering Facility: [facility] Address: [address] [place] [address] Performed By: #### 2 4323-8, 51290-9, 10413-0, 277- ####[facility] [id number] [place] [address] [place] ALT [Catalytic activity/Vol] 13 U/L Normal 7-38 [facility] Comment on above: Order Comment: Speci men Type: BLOOD SPECIMENOrdering Facility: [facility] Address: [address] [place] [address] Performed By: #### 2 4323-8, 22436-6, 71430-9, 277- ####[facility] [id number] [place] [id number] [place] Anion gap [Moles/Vol] 12 mmol/L Normal 8-15 [facility] Comment on above: Order Comment: Speci men Type: BLOOD SPECIMENOrdering Facility: [facility] Address: [address] [place] [address] Performed By: #### 2 4323-8, 06777-2, 90509-3, 277- ####[facility] [id number] [address] [address] [place] AST [Catalytic activity/Vol] 25 U/L Normal 13-35 [facility] Comment on above: Order Comment: Speci men Type: BLOOD SPECIMENOrdering Facility: [facility] Address: [address] [place] [address] Performed By: #### 2 4323-8, 62157-8, 45596-9, 2777-1 ####[facility] [id number] [address] [address] [place] Bilirubin [Mass/Vol] 0.5 mg/dL Normal 0.2-1.3 [facility] Comment on above: Order Comment: Speci men Type: BLOOD SPECIMENOrdering Facility: [facility] Address: [address] [place] [address] Performed By: #### 2 4323-8, 82530-3, 86341-0, 2776- ####[facility] [id number] [place] [id number] [place] Calcium [Mass/Vol] 9.4 mg/dL Normal 8.5-10.2 [facility] Comment on above: Order Comment: Speci men Type: BLOOD SPECIMENOrdering Facility: [facility] Address: [address] [place] [address] Performed By: #### 2 4323-8, 88920-9, 65491-2, 2776- ####[facility] [id number] [place] [id number] [place] Chloride [Moles/Vol] 103 mmol/L Normal 98-107 [facility] Comment on above: Order Comment: Speci men Type: BLOOD SPECIMENOrdering Facility: [facility] Address: [address] [place], [place] [address] Performed By: #### 2 4323-8, , 79271-4, 2776-05 ####[facility] [id number] [place] [id number] [place] CO2 [Moles/Vol] 24 mmol/L Normal 22-30 [facility] Comment on above: Order Comment: Speci men Type: BLOOD SPECIMENOrdering Facility: [facility] Address: [address] [place], [place] [address] Performed By: #### 2 4323-8, 31564-6, 23921-6, 2776-05 ####[facility] [id number] [address] [address] [place] Creatinine [Mass/Vol] 0.72 mg/dL Normal 0.58-0.96 [facility] Comment on above: Order Comment: Specbeth schultz Type: BLOOD SPECIMENOrdering Facility: [facility] Address: [address] [place] [address] Performed By: #### 2 4323-8, , 84438-0, 2776-05 ####[facility] [id number] [address] [address] [place] eGFRcr SerPlBld CKD-EPI 2020 89 mL/min/1.73m??? Normal >=60 [facility] Comment on above: Order Comment: Beltran schultz Type: BLOOD SPECIMENOrdering Facility: [facility] Address: [address] [place] [address] Result Comment: Salma mated Glomerular Filtration Rate [...] actual GFR. Performed By: #### 2 4323-8, , , 2776-05 ####[facility] [id number] [address] [address] [place] Glucose [Mass/Vol] 80 mg/dL Normal 74-99 [facility] Comment on above: Order Comment: Beltran schultz Type: BLOOD SPECIMENOrdering Facility: [facility] Address: [address] [place] [address] Result Comment: The [place] [employer] (ADA) provides guidance for cutoff [...] Standards of Medical Care in Diabetes 2016, [place] [employer]. Diabetes Care. 2016.39(Suppl 1). Performed By: #### 2 4323-8, 03906-8, 16154-7, 277- ####[facility] [id number] [address] [address] [place] Potassium [Moles/Vol] 4.1 mmol/L Normal 3.7-5.1 [facility] Comment on above: Order Comment: Speci men Type: BLOOD SPECIMENOrdering Facility: [facility] Address: [address] [place] [address] Performed By: #### 2 4323-8, 39109-3, 10983-2, 2776-05 ####[facility] [id number] [place] [id number] [place] Protein [Mass/Vol] 7.6 g/dL Normal 6.3-8.0 [facility] Comment on above: Order Comment: Beltran schultz Type: BLOOD SPECIMENOrdering Facility: [facility] Address: [address] [place], [place] [address] Performed By: #### 2 4323-8, 83881-8, 28663-9, 27711-15 ####[facility] [id number] [place] [id number] [place] Sodium [Moles/Vol] 139 mmol/L Normal 136-144 [facility] Comment on above: Order Comment: Malenai men Type: BLOOD SPECIMENOrdering Facility: [facility] Address: [address] [place], [place] [address] Performed By: #### 2 4323-8, , , 2776-05 ####[facility] [id number] [facility] [address] [place] [address] [place] Urea nitrogen [Mass/Vol] 11 mg/dL Normal 7-21 [facility] Comment on above: Order Comment: Speci men Type: BLOOD SPECIMENOrdering Facility: [facility] Address: [address] [place] [address] Performed By: #### 2 4323-8, , , 2776-05 ####[facility] [id number] [facility] [address] [place] [address] [place] Lipid 1996 panelon 5 Cholesterol [Mass/Vol] 214 mg/dL High <200 [facility] Comment on above: Order Comment: Speci men Type: BLOOD SPECIMENOrdering Facility: [facility] Address: [address] [place] [address] Result Comment: <200 mg/dL, Desirable 200-239 mg/dL, Borderline high >239 mg/dL, High Performed By: #### 2 4323-8, , , 2776-05 ####[facility] [id number] [facility] [address] [place] [address] [place] Cholesterol in HDL [Mass/Vol] 62 mg/dL Normal >39 [facility] Comment on above: Order Comment: Speci men Type: BLOOD SPECIMENOrdering Facility: [facility] Address: [address] [place] [address] Result Comment: 40-5 9 mg/dL, Acceptable >59 mg/dL, High: Negative risk factor for coronary heart disease <40 mg/dL, Low: Positive risk factor for coronary heart disease Performed By: #### 2 4323-8, , , 2776- ####[facility] LABCLIA [id number] [facility] [address] [place] [address] [place] Cholesterol in LDL [Mass/Vol] 138 mg/dL High <100 [facility] Comment on above: Order Comment: Beltran marion Type: BLOOD SPECIMENOrdering Facility: [facility] Address: [address] [place] [address] Result Comment: <100 mg/dL, Optimal 100-129 mg/dL, Near optimal/above optimal 130-159 mg/dL, Borderline high 160-189 mg/dL, High >189 mg/dL, Very high Secondary prevention optimal LDL Cholesterol levels are recommended to be <70 mg/dL LDL cholesterol is calculated using the Vaz-NIH equation. Performed By: #### 2 4323-8, 05650-6, 41410-7, 277- ####[facility] LABCLIA [id number] [place] [address] [place] Cholesterol in LDL/Cholesterol in HDL [Mass ratio] 2.23 {ratio} Normal <2.54 [facility] Comment on above: Order Comment: Beltran schultz Type: BLOOD SPECIMENOrdering Facility: [facility] Address: [address] [place] [address] Result Comment: Refe rence: 1. National Cholesterol Education Program ATP III Guideline At-A-Glance Quick Desk Reference: National Heart, Lung, and Blood [place]. National Institutes of Health. 2001: NIH Publication No. 01-3305. 2. An International Atherosclerosis Society position paper: global recommendations for the management of dyslipidemia: executive summary, Atherosclerosis. 2014: 232(2):410-413. Performed By: #### 2 4323-8, 11027-6, 87001-9, 2776- ####[facility] LABCLIA [id number] [address] [address] [place] Cholesterol in VLDL [Mass/Vol] 15 mg/dL Normal <30 [facility] Comment on above: Order Comment: Beltran schultz Type: BLOOD SPECIMENOrdering Facility: [facility] Address: [address] [place] [address] Performed By: #### 2 4323-8, 50910-4, 15806-7, 277- ####[facility] LABCLIA [id number] [place] [id number] [place] Cholesterol non HDL [Mass/Vol] 152 mg/dL High <130 [facility] Comment on above: Order Comment: Speci men Type: BLOOD SPECIMENOrdering Facility: [facility] Address: [address] [place] [address] Result Comment: <130 mg/dL, Optimal 130-159 mg/dL, Near optimal/above optimal 160-189 mg/dL, Borderline high 190-219 mg/dL, High >219 mg/dL, Very high Secondary prevention optimal non HDL Cholesterol levels are recommended to be <100 mg/dL Performed By: #### 2 4323-8, 75641-0, 61163-3, 2777-1 ####[facility] LABCLIA [id number] [place] [address] [place] Cholesterol.total/Jayleen sterol in HDL [Mass ratio] 3.45 {ratio} Normal <5.10 [facility] Comment on above: Order Comment: Speci men Type: BLOOD SPECIMENOrdering Facility: [facility] Address: [address] [place] [address] Performed By: #### 2 4323-8, 30668-8, 24995-3, 277-1 ####[facility] LABIA [id number] [place] [address] [place] FASTING TIME 11 hrs Normal [facility] Comment on above: Order Comment: Speci men Type: BLOOD SPECIMENOrdering Facility: [facility] Address: [address] [place] [address] Performed By: #### 2 4323-8, 31461-1, 92421-9, 2777-1 ####[facility] LABCLIA [id number] [place] [address] [place] Triglyceride [Mass/Vol] 81 mg/dL Normal <150 [facility] Comment on above: Order Comment: Speci men Type: BLOOD SPECIMENOrdering Facility: [facility] Address: [address] [place] [address] Result Comment: <150 mg/dL, Normal 150-199 mg/dL, Borderline high 200-499 mg/dL, High >499 mg/dL, Very high Performed By: #### 2 4323-8, 75847-7, 04606-8, 2777-1 ####[facility] LABCLIA [id number] [place] [address] [place] Magnesium SerPl-mCncon 01-05 Magnesium [Mass/Vol] 2.1 mg/dL Normal 1.7-2.3 [facility] Comment on above: Order Comment: Speci men Type: BLOOD SPECIMENOrdering Facility: [facility] Address: [address] [place] [address] Performed By: #### 2 4323-8, 25655-8, 94364-0, 2777-1 ####[facility] LABCLIA [id number] [place] [address] [place] Phosphate SerPl-mCncon 01-05 Phosphate [Mass/Vol] 3.3 mg/dL Normal 2.7-4.8 [facility] Comment on above: Order Comment: Speci men Type: BLOOD SPECIMENOrdering Facility: [facility] Address: [address] [place] [address] Performed By: #### 2 4323-8, 53322-7, 33153-0, 2777-1 ####[facility] LABIA [id number] [place] [address] [place] CNOVon 01-04-2025 CNOV Office Visit (INTMWS ) ----- PHYLLIS SANCHEZ ([id number]) 1950 F Date Time Provider Department 01/04/25 [...] 80 Resp 16 Ht 155.4 cm (5' 1.18") Wt 46.7 kg (103 lb) SpO2 96% [...] medicare wellness and follow up. Recording using Quantance software for draft documentation of the visit was discussed with the patient/authorized representative government relations; all questions welcomed and answered. Patient/authorized representative government relations agreed to proceed Montez's Esophagus: - Diagnosed [...] Perineorrhaphy Cystoscopy (more content not included)... Normal [facility] Gastroenterology Visit Repor ton 12-29-2024 Gastroenterology Visit Report [facility] Gastroenterology [address] [place] [address] OFFICE VISIT Date of Service: 12/29/24 MR#: [id number] Acct: [id number] Name: PHYLLIS SANCHEZ Rep #: [id number] : 1950 Provider: NANO santa Age/Sex: 74/F [facility] Status: Signed Intake Vital Signs 12/15/24 [...] Chief Complaint: bowel changes and abdominal discomfort Analysis Engineer Required: No Accompanied by: Self Is patient in pain?: No Allergies No Known Allergies Allergy (Verified 12/29/24 13:04) Medications ???Medication ???Instructions ???Recorded ???Confirmed ???Type calcium carbonate (Calcium 500) 500 mg PO DAILY 12/19/21 12/29/24 History mecobalamin (vitamin B12) 5,000 5,000 mcg PO DAILY 12/19/21 History mcg disintegrating tablet vitamins A,C,E-rrsq-ajpvbd 4,296 1 cap PO BID 12/19/21 12/29/24 [...] - C (more content not included)... Normal [facility] Gastrin, Serumon 12-19-2024 GASTRIN 432 pg/mL High 0-115 [facility] Comment on above: Order Comment: JE NG Result Comment: [facility] Immulite 2000 Immunochemiluminometric assay (ICMA) Values obtained with different assay methods or kits cannot be used interchangeably. Results cannot be interpreted as absolute evidence of the presence or absence of malignant disease. Performed at: [address] [id number] Beef Splitter: Joao Burnham MD, Phone: [phone] Performed By: #### L 503.4304, L100.0100, L3300.1800, L503.0106 ####[facility] [address] [place], [place], [id number] Absolute lymphocyte countOrd ered By: Melba Pinon on 12-16-2024 Lymphocytes Auto (Unsp spec) [#/Vol] 1.30 10*3/uL 0.83-4.51 [facility] Absolute neutrophil countOrd ered By: Melba Pinon on 12-16-2024 Neutrophils (Bld) [#/Vol] 3.3 10*3/uL 2.0-7.7 [facility] Automated lymphocyte count a s percentage of total leukocytesOrdered By: Melba Pinon on 12-16-2024 Lymphocytes/100 WBC Auto (Unsp spec) 24.3 % 19-41 [facility] Basophil percentageOrdered B y: Melba Pinon on 12-16-2024 Basophils/100 WBC (Bld) 0.7 % 0-1 [facility] CBC W/Diff, Automatedon Absolute Lymph 1.30 X10 3/uL Normal 0.83-4.51 [facility] Comment on above: Performed By: #### L 503.6030, L100.0100, L3300.1800, L503.0106 ####[facility] [address] [place], [address] Absolute Neut 3.3 X10 3/uL Normal 2.0-7.7 [facility] Comment on above: Performed By: #### L 503.6030, L100.0100, L3300.1800, L503.0106 ####[facility] [address] [place], [address] Basophils/100 WBC (Bld) 0.7 % Normal 0-1 [facility] Comment on above: Performed By: #### L 503.6030, L100.0100, L3300.1800, L503.0106 ####[facility] [address] [place], [address] Eosinophils/100 WBC (Bld) 1.9 % Normal 0-5 [facility] Comment on above: Performed By: #### L 503.6030, L100.0100, L3300.1800, L503.0106 ####[facility] [address] [place], [address] Erythrocyte distribution width (RBC) [Ratio] 13.2 % Normal 11.6-14.6 [facility] Comment on above: Performed By: #### L 503.6030, L100.0100, L3300.1800, L503.0106 ####[facility] [address] [place], [address] Hematocrit (Bld) [Volume fraction] 45.0 % Normal 37-47 [facility] Comment on above: Performed By: #### L 503.6030, L100.0100, L3300.1800, L503.0106 ####[facility] [address] [place], [address] Hemoglobin (Bld) [Mass/Vol] 14.7 g/dL Normal 12.0-15.0 [facility] Comment on above: Performed By: #### L 503.6030, L100.0100, L3300.1800, L503.0106 ####[facility] [address] [place], [address] IG% 0.200 Normal 0.0-0.9 [facility] Comment on above: Result Comment: IG% - Immature Granulocytes (promyelocytes, myelocytes and metamyelocytes) > 1% indicates that a LEFT SHIFT is Present. Performed By: #### L 503.6030, L100.0100, L3300.1800, L503.0106 ####[facility] [address] [place], [address] Lymphocytes/100 WBC (Bld) 24.3 % Normal 19-41 [facility] Comment on above: Performed By: #### L 503.6030, L100.0100, L3300.1800, L503.0106 ####[facility] [address] [place], [address] MCH (RBC) [Entitic mass] 30.6 pg Normal 27.0-32.0 [facility] Comment on above: Performed By: #### L 503.6030, L100.0100, L3300.1800, L503.0106 ####[facility] [address] [place], [address] MCHC (RBC) [Mass/Vol] 32.7 g/dL Normal 32-36 [facility] Comment on above: Performed By: #### L 503.6030, L100.0100, L3300.1800, L503.0106 ####[facility] [address] [place], [address] MCV (RBC) [Entitic vol] 93.6 fL Normal 81-99 [facility] Comment on above: Performed By: #### L 503.6030, L100.0100, L3300.1800, L503.0106 ####[facility] [address] [place], [address] Monocytes/100 WBC (Bld) 11.6 % High 0-10 [facility] Comment on above: Performed By: #### L 503.6030, L100.0100, L3300.1800, L503.0106 ####[facility] [address] [place], [address] Neutrophils/100 WBC (Bld) 61.3 % Normal 47-70 [facility] Comment on above: Performed By: #### L 503.6030, L100.0100, L3300.1800, L503.0106 ####[facility] [address] [place], [address] Nucleated RBC (Bld) [#/Vol] 0 10*3/uL Normal 0-5 [facility] Comment on above: Performed By: #### L 503.6030, L100.0100, L3300.1800, L503.0106 ####[facility] [address] [place], [address] Platelet mean volume (Bld) [Entitic vol] 9.8 fL Normal 6.2-12.0 [facility] Comment on above: Performed By: #### L 503.6030, L100.0100, L3300.1800, L503.0106 ####[facility] [address] [place], [address] Platelets (Bld) [#/Vol] 307 10*3/uL Normal 150-450 [facility] Comment on above: Performed By: #### L 503.6030, L100.0100, L3300.1800, L503.0106 ####[facility] [address] [place], [address] RBC (Bld) [#/Vol] 4.81 10*6/uL Normal 4.2-5.4 [facility] Comment on above: Performed By: #### L 503.6030, L100.0100, L3300.1800, L503.0106 ####[facility] [address] [place], [address] RDW SD 45.9 fl High 35.1-43.9 [facility] Comment on above: Performed By: #### L 503.6030, L100.0100, L3300.1800, L503.0106 ####[facility] [address] [place], [address] WBC (Bld) [#/Vol] 5.4 10*3/uL Normal 4.4-11.0 [facility] Comment on above: Performed By: #### L 503.6030, L100.0100, L3300.1800, L503.0106 ####[facility] [address] [place], [address] Eosinophil percentageOrdered By: Melba Pinon on 12-16-2024 Eosinophils/100 WBC (Bld) 1.9 % 0-5 [facility] Erythrocyte distribution wid th ratioOrdered By: Melba Pinon on 12-16-2024 Erythrocyte distribution width (RBC) [Ratio] 13.2 % 11.6-14.6 [facility] Erythrocyte distribution wid th standard deviationOrdered By: Melba Pinon on 12-16-2024 Erythrocyte distribution width (RBC) [Ratio] 45.9 fl High 35.1-43.9 [facility] Gastrin, serumOrdered By: Demarcus Pinon on 12-16-2024 Gastrin [Mass/Vol] 432 pg/mL High 0-115 [facility] Comment on above: Siemens Immulite 200 0 Immunochemiluminometric assay (ICMA)Values obtained with different assay methods or kits cannotbe used interchangeably. Results cannot be interpreted asabsolute evidence of the presence or absence of malignantdisease.Performed at: [address] [id number] Director: Joao Burnham MD, Phone: [phone] Hematocrit Auto (Bld) [Volum e fraction]Ordered By: Melba Pinon on 12-16-2024 Hematocrit (Bld) [Volume fraction] 45.0 % 37-47 [facility] Hemoglobin measurementOrdere d By: Melba Pinon on 12-16-2024 Hemoglobin (Bld) [Mass/Vol] 14.7 g/dL 12.0-15.0 [facility] Immature granulocytes/100 WB C Auto (Bld)Ordered By: Melba Pinon on 12-16-2024 Immature granulocytes/100 WBC (Bld) 0.200 % 0.0-0.9 [facility] Comment on above: IG% - Immature Granu locytes (promyelocytes, myelocytes and metamyelocytes) > 1% indicates that a LEFT SHIFT is Present. Iron measurement (mass/mass) Ordered By: Melba Pinon on 12-16-2024 Iron (Unsp spec) [Mass/Mass] 74 ug/dL 50-170 [facility] Iron+Iron Binding Capacityon 12-16-2024 Iron [Mass/Vol] 74 ug/dL Normal 50-170 [facility] Comment on above: Order Comment: FASTI NG Performed By: #### L 503.6030, L100.0100, L3300.1800, L503.0106 ####[facility] [address] [place], [address] IRON SATURATION 25.0 Normal 13-59 [facility] Comment on above: Order Comment: FASTI NG Performed By: #### L 503.6030, L100.0100, L3300.1800, L503.0106 ####[facility] [address] [place], [address] TIBC 295 ug/dL Normal 250-450 [facility] Comment on above: Order Comment: FASTI NG Performed By: #### L 503.6030, L100.0100, L3300.1800, L503.0106 ####[facility] [address] [place], [address] UIBC 221 ug/dL Low 228-428 [facility] Comment on above: Order Comment: FASTI NG Performed By: #### L 503.6030, L100.0100, L3300.1800, L503.0106 ####[facility] [address] [place], [address] MCV (mean corpuscular volume ) determinationOrdered By: Melba Pinon on 12-16-2024 MCV (RBC) [Entitic vol] 93.6 fL 81-[address] [facility] Mean corpuscular hemoglobin (MCH) determinationOrdered By: Melba Pinon on 12-16-2024 MCH (RBC) [Entitic mass] 30.6 pg 27.0-32.0 [facility] Mean corpuscular hemoglobin concentration (MCHC) determinationOrdered By: Melba Pinon on 12-16-2024 MCHC (RBC) [Mass/Vol] 32.7 g/dL 32-36 [facility] Mean platelet volume determi nationOrdered By: Melba Pinon on 12-16-2024 Platelet mean volume (Bld) [Entitic vol] 9.8 fL 6.2-12.0 [facility] Monocyte percentageOrdered B y: Melba Pinon on 12-16-2024 Monocytes/100 WBC (Bld) 11.6 % High 0-10 [facility] Neutrophil percentageOrdered By: Melba Pinon on 12-16-2024 Neutrophils/100 WBC (Bld) 61.3 % 47-70 [facility] No Panel InformationOrdered By: Melba Pinon on 12-16-2024 Unsaturated Iron Binding Capacity 221 ug/dL Low 228-428 [facility] Nucleated red blood cell per centageOrdered By: Melba Pinon on 12-16-2024 Nucleated RBC/100 WBC (Bld) [Ratio] 0 % 0-5 [facility] Platelet countOrdered By: Demarcus Pinon on 12-16-2024 Platelets (Bld) [#/Vol] 307 10*3/uL 150-450 [facility] RBC Auto (Bld) [#/Vol]Ordere d By: Melba Pinon on 12-16-2024 RBC (Bld) [#/Vol] 4.81 10*6/uL 4.2-5.4 [facility] Serum or plasma iron saturat ion measurement (mass fraction)Ordered By: Melba Pinon on 12-16-2024 Iron saturation [Mass fraction] 25.0 % 13-59 [facility] Vitamin B12on 12-16-2024 Cobalamin (Vitamin B12) [Mass/Vol] 721 pg/mL Normal 180-914 [facility] Comment on above: Performed By: #### L 503.6030, L100.0100, L3300.1800, L503.0106 ####[facility] [address] [place], [address] Vitamin B12 ser/plasOrdered By: Melba Pinon on 12-16-2024 Cobalamin (Vitamin B12) [Mass/Vol] 721 pg/mL 180-914 [facility] White blood cell (WBC) count Ordered By: Melba Pinon on 12-16-2024 WBC (Bld) [#/Vol] 5.4 10*3/uL 4.4-11.0 [facility] Gastroenterology Visit Repor ton 12-15-2024 Gastroenterology Visit Report [facility] Gastro[facility]ology [address] [place] [address] OFFICE VISIT Date of Service: 12/15/24 MR#: [id number] Acct: [id number] Name: PHYLLIS SANCHEZ Rep #: [id number] : 1950 Provider: NANO santa Age/Sex: 74/F [facility] Status: Signed Intake Vital Signs 11/08/24 13:42 [...] DAILY 12/19/21 History mcg disintegrating tablet vitamins A,C,G-mjch-ivgbul 4,296 1 cap PO BID 12/19/21 12/15/24 [...] I have recommended ARM, referral placed to [facility]. In terms of CT findings, she underwent partial hysterectomy with bladder suspension and Bulkamid in 2023. She will follow-up with Urogynecology to review CT findings. Note: Collarity speech recognition drawer in jacquard loom software was used to create portions of this document. Sound-alike and misspelled words, as well as other drawer in jacquard loom errors may be contained in the documentation. Patient Instructions: - Amitiza 8mcg BID for constipation - May use Magnesium Citrate 250mg 2 capsules once daily for constipation if not able to get Amitiza - Follow-up with Dr. Manzanares (Urogynecology) at [facility] regarding CT findings, she will obtain a [...] 69.1 Intrin (more content not included)... Normal [facility] Anti-Parietal Cell AB, QNon 12-06-2024 ANTIPARIET CELL 69.1 Units High 0.0-20.0 [facility] Comment on above: Result Comment: Nega tive 0.0 - 20.0 Equivocal 20.1 - 24.9 Positive >24.9 Parietal Cell Antibodies are found in 90% of patients with pernicious anemia and 30% of first degree relatives with pernicious anemia. Performed By: #### L 3300.1800, L3410.0900, L3410.1000, L503.0106 ####[facility] [address] [place], [address] Gastrin, Serumon 12-06-2024 GASTRIN 923 pg/mL High 0-115 [facility] Comment on above: Order Comment: fasti ng Result Comment: [facility] Immulite 2000 Immunochemiluminometric assay (ICMA) Values obtained with different assay methods or kits cannot be used interchangeably. Results cannot be interpreted as absolute evidence of the presence or absence of malignant disease. Performed By: #### L 3300.1800, L3410.0900, L3410.1000, L503.0106 #### [facility] [address] [place], [address] Intrinsic Factor Abon 2024 INTRINS FACT AB 1.0 AU/mL Normal 0.0-1.1 [facility] Comment on above: Result Comment: Perf ormed at: [address] [id number] Beef Splitter: Joao Burnham MD, Phone: [phone] Performed at: [facility] [address] [id number] Beef Splitter: Joaquin Lombardo PhD, Phone: [phone] Performed By: #### L 3300.1800, L3410.0900, L3410.1000, L503.0106 ####[facility] [address] [place], [place], [address] Gastrin, serumOrdered By: Demarcus Pinon on 12-03-2024 Gastrin [Mass/Vol] 923 pg/mL High 0-115 [facility] Comment on above: Siemens Immulite 200 0 Immunochemiluminometric assay (ICMA)Values obtained with different assay methods or kits cannotbe used interchangeably. Results cannot be interpreted asabsolute evidence of the presence or absence of malignantdisease. Serum parietal cell antibody assay (units/volume)Ordered By: Melba Pinon on 12-03-2024 Parietal cell Ab Qn (S) 69.1 Units High 0.0-20.[address] [facility] Comment on above: Negative 0.0 - 20.0 Equivocal 20.1 - 24.9 Positive >24.9Parietal Cell Antibodies are found in 90% of patientswith pernicious anemia and 30% of first degreerelatives with pernicious anemia. Vitamin B12on 12-03-2024 Cobalamin (Vitamin B12) [Mass/Vol] 608 pg/mL Normal 180-914 [facility] Comment on above: Performed By: #### L 3300.1800, L3410.0900, L3410.1000, L503.0106 #### [facility] [address] [place], [address] Vitamin B12 ser/plasOrdered By: Melba Pinon on 12-03-2024 Cobalamin (Vitamin B12) [Mass/Vol] 608 pg/mL 180-914 [facility] CNOVon 11-08-2024 CNOV Office Visit (GYURWP ) ----- PHYLLIS SANCHEZ ([id number]) 1950 F Date Time Provider Department 11/08/24 8:30 AM DUNG HOLMAN During your visit today, we recorded the following information about you: Pulse Blood pressure Weight 90/minute 145/84 47.2 kg Dung Holman APRN.CNP 11/08/2024 8:36 AM Signed Female Pelvic Medicine AND Reconstructive Surgery Follow-Up CHIEF COMPLAINT: Phlylis Sanchez is a 73 year old female, [...] the PFSH obtained by others. Dung Holman APRN.IMMIGRATION CONSULTANT Powerhouse Engineer offered: Patient declines. SENSITIVE EXAM: The sensitive examination was discussed with the Patient or Patient's Authorized Bus Operator. As applicable, any other physician, advance practice provider, medical student, or other health professional student that will be observing or involved in the sensitive examination for educational or training purposes was discussed with the Patient or Authorized Bus Operator. The Patient or Authorized Bus Operator has agreed to proceed with the sensitive [...] which included preparing to see the patient, ajfh-qh-mflr patient care, completing clinical documentation, performing a medically appropriate examination, and counseling and educating the patient/family/caregiver. Dung Holman APRN.IMMIGRATION CONSULTANT Allergies As of Date: 11/08/2024 (No Known [...] for Encounter Date Provider Department Center 11/08/2024 [id number], JAIME Aimee Dotson Encounter Status:Closed by DUNG HOLMAN on 11/08/24 Normal [facility] EGD Reporton 11-08-2024 EGD Report [facility] Medical Records Department [address] [place] [address] EGD Report MR#: [id number] Acct: [id number] Name: PHYLLIS SANCHEZ Rep #: [id number] : 1950 73 From: Dhiraj King DO PCP: NANO BURLESON Status:[facility] Patient Name: Phyllis Sanchez Procedure Date: 11/08/2024 [...] pathology results. Procedure Code(s): --- Professional --- 84424, Small intestinal endoscopy, enteroscopy beyond second portion of duodenum, not including ileum; with biopsy, single or multiple CPT copyright 2021 [employer]. All rights reserved. The codes documented in this report are preliminary and upon heel dipper review may be revised to meet current compliance requirements. Dhiraj King DO 11/08/2024 2:57:35 PM This report has been signed electronically. Number of Addenda: 0 Note Initiated On: 11/08/2024 2:38 PM 11/08/24 1457 Date [facility] Signature: Date (if indicated) CC: PRINTER TECHNICIANImelda MARTIN; Dhiraj King, Date Dictated: 11/08/24 1438 Date Transcribed: Rn Relief Charge: JOHNY Signed Normal [facility] Immunohistochemical Stainson 11-08-2024 Immunohistochemical Stains Patient Age/Sex Location Account Attending Physician PHYLLIS SANCHEZ 73/F EN [id number] Dhiraj King DO Specimen: [id number] Received: 11/08/24 Status: LOU Huynh Num: [id number] Spec Type: EGD BIOPSY Subm Dr: Dhiraj King DO HEADER OPERATION: EGD, [...] the patient's name and designated Distal esophagus biopsy." The specimen consists of two irregular fragments of light rodriguez soft tissue that in aggregate measure 0.3 and 0.4 cm. The specimen is totally submitted in one cassette. Kathe 11/09/2024 CPT:60630a0,65759,75243u2 Patient Age/Sex Location Account Attending Physician PHYLLIS SANCHEZ 73/F EN [id number] Dhiraj King DO ADDENDUM Addendum 1 Entered: 01/12/25 This addendum is added to incorporate an outside pathology consultation report. The case was examined at [facility] [employer] and the following diagnosis was rendered. TISSUE MELISSA - MONTEZ'S ESOPHAGUS REPORT - B1: RISK CLASS: LOW RISK SCORE: 5.3 5-year probability of progression: 6% Please see complete above mentioned consultation report in EMR Addendum Signed (signature on file) Dr. Leslie Rolon MD 01/12/25 1329 Patient Age/Sex Location Account Attending Physician PHYLLIS SANCHEZ 73/F EN [id number] Dhiraj King DO Signed (signature on file) Dr. Leslie Rolon MD 11/22/24 9640 Normal [facility] Comment on above: Performed By: #### P [facility] #### [facility] [address] [place], [address] MR/POSTOP.ANEon 11-08-2024 MR/POSTOP.[facility] Medical Records Department [address] [place] [address] Anesthesia Postop Eval I 11/08/24 1500 MR#: [id number] Acct: [id number] Name: PHYLLIS SANCHEZ Rep #: [id number] : 1950 73 From: David Jeffries PCP: CHRISTINA MARTIN PRINTER TECHNICIAN-C Status:REG [facility] Y Race: C Location: [place] [address] Anesthesia: Postop Eval I Current Vital Signs [...] 1 completed: Yes 11/08/24 1501 Date David Jeffries Cosignbrenda Signature: Date CC: Signed Normal [facility] MR/NBUGLSHA8zz 11-08-2024 MR/POSTOPAN2 [facility] Medical Records Department [address] [place] [address] Anesthesia Postop Eval II 11/08/24 1707 MR#: [id number] Acct: [id number] Name: PHYLLIS SANCHEZ Rep #: [id number] : 1950 73 From: Jeane Alfaro CRNA PCP: CHRISTINA MARTIN, PRINTER TECHNICIAN-C Status:DEP [facility] Y Race: C Location: EN Anesthesia Postop [...] CRNA Cosigner Signature: Date CC: Signed Normal [facility] Gastroenterology Visit Repor ton 10-24-2024 Gastroenterology Visit Report [facility] Gastroenterology [address] [address] OFFICE VISIT Date of Service: 10/24/24 MR#: [id number] Acct: [id number] Name: PHYLLIS SANCHEZ Rep #: [id number] : 1950 Provider: NANO santa Age/Sex: 73/F Location: [facility] Status: Signed Intake Vital Signs 09/13/24 08:32 10/24/24 08:35 Height 5 ft 5 ft Weight: 107 lb 105 lb 8 oz BMI 20.9 20.6 BP 136/85 H 153/84 H Respiration 16 16 Pulse 75 70 Pulse Oximetry (%) 96 97 Oxygen Delivery Method room air room air Intake Visit Reasons: CT scan results Chief Complaint: bowel changes and abdominal discomfort Analysis Engineer Required: No Accompanied by: Self Is patient [...] pain with (more content not included)... Normal [facility] Abdomen/Pelvis WITH Contrast on 10-14-2024 Abdomen/Pelvis WITH Contrast [facility] Imaging Services [address] [place], [place] [address] Abdomen/Pelvis WITH Contrast MR#: [id number] Acct: [id number] Name: PHYLLIS SANCHEZ Rep #: [id number] : 1950 F 73 From: Ralph Lawler MD PCP: NANO BURLESON Status: REG CLI Study: Abdomen/Pelvis WITH Contrast Date of Exam: Exam# [id number] Ordering Dr: Melba Pinon PROCEDURE: ABDOMEN/PELVIS WITH CONTRAST 10/14/2024 REASON FOR [...] to underdistention or gastritis. Constipation. Reading Location: [id number] CC: NANO MARTIN; NANO Pinon Rn Relief Charge: Signed Normal [facility] Gastroenterology Visit Repor ton 09-13-2024 Gastroenterology Visit Report [facility] Gastroenterology [address] [place] [address] OFFICE VISIT Date of Service: 09/13/24 MR#: [id number] Acct: [id number] Name: PHYLLIS SANCHEZ Rep #: [id number] : 1950 Provider: NANO santa Age/Sex: 73/F Location: [facility] Status: Signed Intake Vital Signs 07/04/24 13:06 09/13/24 08:32 Height 5 ft 5 ft Weight: 106 lb 4 oz 107 lb BMI 20.7 20.9 BP 142/90 H 136/85 H Respiration 18 16 Pulse 75 Pulse Oximetry (%) 96 96 Oxygen Delivery Method room air room air Intake Visit Reasons: 2 M FU Chief Complaint: bowel changes and abdominal discomfort Analysis Engineer Required: No Is patient in pain?: No Allergies No Known Allergies Allergy (Verified 07/04/24 13:05) Medications ???Medication ???Instructions ???Recorded ???Confirmed ???Type calcium carbonate (Calcium 500) 500 mg PO DAILY 12/19/21 09/13/24 History mecobalamin (vitamin B12) 5,000 5,000 mcg PO DAILY 12/19/21 History mcg disintegrating tablet vitamins A,C,L-oxmq-vhrkfv 4,296 1 cap PO BID 12/19/21 09/13/24 [...] didn't pick it up at the pharmacy. [facility] Medical History Post-menopausal Arthritis PONV (postoperative nausea [...] and constipatio (more content not included)... Normal [facility] Gastroenterology Visit Repor ton 07-04-2024 Gastroenterology Visit Report [facility] Gastroenterology [address] [place] [address] OFFICE VISIT Date of Service: 07/04/24 MR#: [id number] Acct: [id number] Name: PHYLLIS SANCHEZ Rep #: [id number] : 1950 Provider: NANO santa Age/Sex: 73/F Location: [facility] Status: Signed Intake Vital Signs 06/01/24 05:52 07/04/24 13:06 Height 5 ft 5 ft Weight: 106 lb 4 oz BMI 20.7 BP 142/90 H Respiration 18 Pulse Oximetry (%) 96 Oxygen Delivery Method room air Intake Visit Reasons: Follow up Chief Complaint: bowel changes and abdominal discomfort Analysis Engineer Required: No Is patient in pain?: No Allergies No Known Allergies Allergy (Verified 07/04/24 13:05) Medications ???Medication ???Instructions ???Recorded ???Confirmed ???Type calcium carbonate (Calcium 500) 500 mg PO DAILY 12/19/21 07/04/24 History mecobalamin (vitamin B12) 5,000 5,000 mcg PO DAILY 12/19/21 History mcg disintegrating tablet vitamins A,C,E-ecyo-qjhbsu 4,296 1 cap PO BID 12/19/21 07/04/24 [...] at least 5 days a week - 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 Normal [facility] Colonoscopy Reporton 025 Colonoscopy Report [facility] Medical Records Department [address] [place] [address] Colonoscopy Report MR#: [id number] Acct: [id number] Name: PHYLLIS SANCHEZ Rep #: [id number] : 1950 73 From: Dhiraj King DO PCP: NANO BURLESON Status:REG [facility] Patient Name: Phyllis Sanchez Procedure Date: 06/01/2024 [...] screening purposes. Procedure Code(s): --- Professional --- 79441, Colonoscopy, flexible; with biopsy, single or multiple CPT copyright 2021 [employer]. All rights reserved. The codes documented in this report are preliminary and upon heel dipper review may be revised to meet current compliance requirements. Dhiraj King DO 06/01/2024 7:25:52 AM This report has been signed electronically. Number of Addenda: 0 Note Initiated On: 06/01/2024 6:41 AM 06/01/24 0726 Date Dhiraj Vaughn Signature: Date (if indicated) CC: PRINTER TECHNICIAN-C CHRISTINA MARTIN; Dhiraj King, Date Dictated: 06/01/24 0641 Date Transcribed: Rn Relief Charge: JOHNY Signed [facility] MR/POSTOP.ANEon 06-01-2024 MR/POSTOP.[facility] Medical Records Department [address] [place] [address] Anesthesia Postop Eval I 06/01/24 0732 MR#: [id number] Acct: [id number] Name: PHYLLIS SANCHEZ Rep #: [id number] : 1950 73 From: David Jeffries PCP: NANO BURLESON Status:VIOLA BRICEÑO Y Race: C Location: [place] [address] Anesthesia: Postop Eval I Current Vital Signs [...] Eval 1 completed: Yes 06/01/24732 Date David Valadez Signature: Date CC: Signed [facility] MR/HTUGWDNR8ly 06-01-2024 [facility] Medical Records Department [address] [place] [address] Anesthesia Postop Eval II 06/01/24 0845 MR#: [id number] Acct: [id number] Name: PHYLLIS SANCHEZ Rep #: [id number] : 1950 73 From: Daljit Prater MD PCP: CHRISTINA OLDER, PRINTER TECHNICIAN-C Status:DEP [facility] Y Race: C Location: EN Anesthesia Postop [...] Daljit Valadez Signature: Date CC: Signed Normal [facility] Surgery Specimen Level Frida 06-01-2024 Surgery Specimen Level IV Patient Age/Sex Location Account Attending Physician DANIELPHYLLIS ECHEVARRIAREBEKAH 73/F EN [id number] Dhiraj King DO Specimen: [id number] Received: 06/01/24 Status: LOU Huynh Num: [id number] Spec Type: COLON BX Subm Dr: Dhiraj King DO HEADBRENDA OPERATION: Colonoscopy biopsy PRE-OP DIAGNOSIS: Abdominal pain, change in bowel habits, constipation TISSUE SUBMITTED: Terminal ileum biopsy MICROSCOPIC DIAGNOSIS Terminal ileum, biopsy: Fragments of small intestinal mucosa, no pathologic diagnosis. MANAS. 06/02/2024 MICROSCOPIC DESCRIPTION Slides are reviewed. GROSS DESCRIPTION Received in fixative is one container labeled with the patient's name and designated Terminal ileum biopsy. The specimen consists of multiple irregular fragments of light rodriguez soft tissue that in aggregate measure 1.4 x 0.4 x 0.2 cm. The specimen is totally submitted in one cassette. DAVIAN. 06/01/2024 TC:4 CPT:57996 Patient Age/Sex Location Account Attending Physician PHYLLIS SANCHEZ 73/F EN [id number] Dhiraj King DO Signed (signature on file) Dr. Travis Velasquez MD 06/02/24 1149 Normal [facility] Comment on above: Performed By: #### P DOUG #### [facility] [address] [place], [place], [address] MR/Elena 05-30-2024 MR/PATJOSE [facility] Medical Records Department [address] [place] [address] PAT - Anesthesia 05/30/24 0918 MR#: [id number] Acct: [id number] Name: PHYLLIS SANCHEZ Rep #: [id number] : 1950 73 From: Daljit Prater MD PCP: CHRISTINA MARTIN, PRINTER TECHNICIAN-C Status:PRE [facility] Y Race: C Location: EN Pre-Assessment Diagnosis/Proposed Procedure Planned Operative Procedure(s): CSCOPE Anesthesia History Anesthesia History - parallel computing software engineer: Anesthesia History - parallel computing software engineer Hx Hospitalization No 05/30/24 08:28 Any Problems [...] take am of surgery PONV PONV - parallel computing software engineer: PONV - parallel computing software engineer Female Yes 05/30/24 08:28 HX of Motion Sickness Yes 05/30/24 08:28 HX of N/V After Surgery Yes 05/30/24 08:28 Non-Smoker Yes 05/30/24 08:28 Duration of Surgery greater No 05/30/24 08:28 than 60 minutes Number of Risk Factors 4 05/30/24 08:28 PONV Score Severe Risk 05/30/24 08:28 Height Weight Height Weight: Anesthesia: Height Weight Height 5 ft 08/06/23 14:32 Respiratory Assessment Respiratory Assessment - parallel computing software engineer: Respiratory Tract Infection Hx - parallel computing software engineer Hx Respiratory Tract Infection No 05/30/24 08:28 STOP Sleep Apnea STOP Sleep Apnea - parallel computing software engineer: STOP Sleep Apnea - parallel computing software engineer Hx Hypertension No 05/30/24 08:28 Hx Sleep [...] Tobacco Use History Tobacco Use History - parallel computing software engineer: Tobacco Use History - parallel computing software engineer Tobacco Use Smoking Status Former smoker 05/30/24 08:28 Hx Tobacco Use Yes 05/30/24 08:28 Years Smoking Packs Smoked per Day Smoking Cessation Date was No - quit smoking greater 05/30/24 08:28 within the last 15 years than 15 years ago Hx Smoking Cessation Date 05/18/79 05/30/24 08:28 Hx Smoking Cessation Counseling Hematologic Medial History Hematologic Hx - parallel computing software engineer: Hematologic Medical Hx - mental health professional Hx of Blood Transfusion No 05/30/24 08:28 [...] confused, unrespo /Reproduction History /Reproductive History - parallel computing software engineer: /Reproductive Hx- parallel computing software engineer Hx Now No 05/30/24 08:28 Gestational Age (in weeks): EDC: Hx Hx Para Hx Section SAB No 05/30/24 08:28 PFSH Medical History (Updated 05/30/24 @ 08:37 by [...] 12/19/21 04/22/22 History mcg disintegrating tablet vitamins A,C,G-kqvc-bgxono 4,296 1 cap PO BID 12/19/21 04/22/22 History mcg-226 mg-90 mg capsule (PreserVision AREDS) alendronate 10 mg tablet 10 mg PO .once a week 03/31/24 Unknown History dicyclomine 10 mg capsule 10 mg PO TID PRN abdominal pain 04/25/24 Unknown Rx #60 caps m (more content not included)... Normal [facility] Surgery Specimen Level Frida 05-03-2024 Surgery Specimen Level IV Patient Age/Sex Location Account Attending Physician PHYLLIS SANCHEZ 73/F LABSPEC [id number] Bjorn Alvarado Specimen: [id number] Received: 05/05/24 Status: LOU Huynh Num: [id number] Spec Type: ETH TISS Subm Dr: Dr. [...] labeled with the patient's name and designated "Left nasal sinus contents." The specimen consists of multiple irregular fragments of soft tissue and cartilage and bone that in aggregate measure 2.0 x 1.5 x 0.3 cm. The specimen is totally submitted in one cassette after decalcification. [facility] 05/05/2024 TC:3 CPT:49963, 90508 Patient Age/Sex Location Account Attending Physician PHYLLIS SANCHEZ 73/F LABSPEC [id number] Bjorn Alvarado Signed (signature on file) Dr. Travis Velasquez MD 05/09/24 1232 Normal [facility] Comment on above: Performed By: #### P SULADARIUS ####[facility] [address] [place], [address] CNOVon 03-31-2024 CNOV Office Visit (INTMWS ) ----- DANIELPHYLLIS Vladimir ([id number]) 1950 F Date Time Provider Department 03/31/24 7:20 AM CHRISTINA MARTIN INTMWS During your visit today, we recorded the following information about you: Respiration Weight 16/minute 47.2 kg Christina Martin APRN.CNP 03/31/2024 7:51 AM Signed CC: Patient presents [...] Discontinued DATA REVIEWED: Most recent labs from [facility] ASSESSMENT/PLAN: 1. Elevated blood pressure reading - ICD9: 796.2, ICD10: R03.0 (primary diagnosis) - Encouraged dietary sodium restriction/DASH diet - Recommended regular aerobic exercise. - Recommend home blood pressure monitoring, to bring results in on next visit - Recheck in 2 week, sooner if needed. - Goal of BP <130/80 2. Genitourinary syndrom (more content not included)... Normal [facility] Gastroenterology Visit Repor ton 11-14-2024 Gastroenterology Visit Report [facility] Gastroenterology [address] [place] [address] OFFICE VISIT Date of Service: 03/31/24 MR#: [id number] Acct: [id number] Name: PHYLLIS SANCHEZ Rep #: [id number] : 1950 Provider: NANO santa Age/Sex: 73/F Location: [facility] Status: Signed Intake Vital Signs 08/06/23 14:32 03/31/24 14:32 Height 5 ft Weight: 109 lb 104 lb BMI 21.2 BP 156/92 H Respiration 16 Pulse 74 Temp 97.9 F Pulse Oximetry (%) 97 Intake Visit Reasons: Abdominal pain Chief Complaint: bowel changes and abdominal discomfort Analysis Engineer Required: No Is patient in pain?: Yes Allergies No Known Allergies Allergy (Verified 03/31/24 14:28) Medications ???Medication ???Instructions ???Recorded ???Confirmed ???Type calcium carbonate (Calcium 500) 500 mg PO DAILY 12/19/21 03/31/24 History mecobalamin (vitamin B12) 5,000 5,000 mcg PO DAILY 12/19/21 03/31/24 History mcg disintegrating tablet vitamins A,C,V-rzbf-cghkne 4,296 1 cap PO BID 12/19/21 03/31/24 [...] is smaller and she goes more often. [facility] Medical History Alcohol use Former smoker Osteoarthritis [...] complete sente (more content not included)... Normal [facility] 03-23-2024 [facility] Telephone (GYURWP) ----- PHYLLIS SANCHEZ ([id number]) 1950 F Date Time Provider Department 03/23/24 [...] Status:Closed by ELIZABETH TOMAS on 03/23/24 Normal [facility] 12 Lead EKGon 03-21-2024 12 Lead EKG [facility] Cardiovascular Services [address] [place] [address] 12 Lead EKG 03/21/24 0727 MR#: [id number] Acct: [id number] Name: PHYLLIS SANCHEZ Rep #: [id number] : 1950 73 From: Juan Carlos Rader MD Attending Dr: Dr. Buddy Shelton MD Statu s: REG CLI Ordering Dr: Buddy Shelton MD Date: 4 Location: [facility] Sex: F C Admitted: Test Reason : PRE OP Blood Pressure : */* mmHG Vent. Rate : 61 BPM Atrial Rate : 61 BPM P-R Int : 150 ms QRS Dur : 82 ms QT Int : 408 ms P-R-T Axes : 85 86 83 degrees QTcB Int : 410 ms Normal sinus rhythm possible Biatrial enlargement borderline Confirmed by Juan Carlos Rader ([id number]), editorial intern LAY ROBERSON ([id number]) on 03/22/2024 9:13:57 AM Referred By: Buddy Shelton Confirmed By: Juan Carlos Rader 03/22/2414 Date Juan Carlos Rader MD CC: PRINTER TECHNICIAN-C CHRISTINA MARTIN; Dr. Buddy Shelton MD Signed Normal [facility] Basic Metabolic Profile (BMP )on 03-21-2024 BUN/CRE 19.6 RATIO Normal 10-20 [facility] Comment on above: Performed By: #### L 100.0500, L500.2500 ####[facility] [address] [place], [address] CA,Total 9.1 mg/dL Normal 8.5-10.1 [facility] Comment on above: Performed By: #### L 100.0500, L500.2500 ####[facility] [address] [place], [address] Chloride [Moles/Vol] 107 mmol/L Normal 98-107 [facility] Comment on above: Performed By: #### L 100.0500, L500.2500 ####[facility] [address] [place], [address] CO2 [Moles/Vol] 26.0 mmol/L Normal 21.0-32.0 [facility] Comment on above: Performed By: #### L 100.0500, L500.2500 ####[facility] [address] [place], [address] Creatinine [Mass/Vol] 0.77 mg/dL Normal 0.55-1.02 [facility] Comment on above: Result Comment: The validity of the calculated GFR GFRAA in patients over 70 years has not been determined. Clinical correlation is essential. Performed By: #### L 100.0500, L500.2500 ####[facility] [address] [place], [address] EST GFR - AA 96 mL/min Normal >60 [facility] Comment on above: Result Comment: Afri can Togolese GFR Calc Performed By: #### L 100.0500, L500.2500 ####[facility] [address] [place], [address] GAP 6 Normal 5-15 [facility] Comment on above: Performed By: #### L 100.0500, L500.2500 ####[facility] [address] [place], [address] GFR/1.73 sq M.predicted among non-blacks MDRD (S/P/Bld) [Vol rate/Area] 79 mL/min/{1.73_m2} Normal >60 [facility] Comment on above: Result Comment: Non- GFR Calc Performed By: #### L 100.0500, L500.2500 ####[facility] [address] [place], [address] Glucose [Mass/Vol] 94 mg/dL Normal 74-106 [facility] Comment on above: Performed By: #### L 100.0500, L500.2500 ####[facility] [address] [place], [address] Potassium [Moles/Vol] 4.0 mmol/L Normal 3.5-5.1 [facility] Comment on above: Performed By: #### L 100.0500, L500.2500 ####[facility] [address] [place], [address] Sodium [Moles/Vol] 139 mmol/L Normal 136-145 [facility] Comment on above: Performed By: #### L 100.0500, L500.2500 ####[facility] [address] [place], [address] Urea nitrogen [Mass/Vol] 15 mg/dL Normal 7-18 [facility] Comment on above: Performed By: #### L 100.0500, L500.2500 ####[facility] [address] [place], [address] CBC-Complete Blood Cnt No Di ffon 03-21-2024 Erythrocyte distribution width (RBC) [Ratio] 13.5 % Normal 11.6-14.6 [facility] Comment on above: Performed By: #### L 100.0500, L500.2500 ####[facility] [address] [place], [address] Hematocrit (Bld) [Volume fraction] 43.9 % Normal 37-47 [facility] Comment on above: Performed By: #### L 100.0500, L500.2500 ####[facility] [address] [place], [address] Hemoglobin (Bld) [Mass/Vol] 14.5 g/dL Normal 12.0-15.0 [facility] Comment on above: Performed By: #### L 100.0500, L500.2500 ####[facility] [address] [place], [address] MCH (RBC) [Entitic mass] 30.3 pg Normal 27.0-32.0 [facility] Comment on above: Performed By: #### L 100.0500, L500.2500 ####[facility] [address] [place], [address] MCHC (RBC) [Mass/Vol] 33.0 g/dL Normal 32-36 [facility] Comment on above: Performed By: #### L 100.0500, L500.2500 ####[facility] [address] [place], [address] MCV (RBC) [Entitic vol] 91.6 fL Normal 81-[address] [facility] Comment on above: Performed By: #### L 100.0500, L500.2500 ####[facility] [address] [place], [address] Platelet mean volume (Bld) [Entitic vol] 10.0 fL Normal 6.2-12.0 [facility] Comment on above: Performed By: #### L 100.0500, L500.2500 ####[facility] [address] [place], [address] Platelets (Bld) [#/Vol] 225 10*3/uL Normal 150-450 [facility] Comment on above: Performed By: #### L 100.0500, L500.2500 ####[facility] [address] [place], [address] RBC (Bld) [#/Vol] 4.79 10*6/uL Normal 4.2-5.4 [facility] Comment on above: Performed By: #### L 100.0500, L500.2500 ####[facility] [address] [place], [address] RDW SD 46.3 fl High 35.1-43.9 [facility] Comment on above: Performed By: #### L 100.0500, L500.2500 ####[facility] [address] [place], [address] WBC (Bld) [#/Vol] 4.4 10*3/uL Normal 4.4-11.0 [facility] Comment on above: Performed By: #### L 100.0500, L500.2500 ####[facility] [address] [place], [address] DBT Breast - bilateral jasmin larkin 03-08-2024 [...] Hipolito Black M.D. Electronically signed on: 03/08/2024 Rn Relief Charge: MARIAN Transcribe Date/Time: Mar 08 2024 7:35A Dictated by: HIPOLITO BLACK MD This examination was interpreted and the report reviewed and electronically signed by: HIPOLITO BLACK MD on Mar 08 2024 9:30AM [facility] DIVISION OF RADIOLOGY * * *Final Report* * * DATE OF EXAM: Mar 08 2024 8:11AM [facility] 0582 - TAYLOR SCREENING W AQUILES / PROCEDURE REASON: Encounter for screening mammogram for breast cancer * * * * Physician Interpretation * * * * RESULT: [facility] [address] [place] [address] HISTORY: Patient is 73 years old and [...] the prior study. DIVISION OF RADIOLOGY Provider, [facility] - 03/08/2024 * * *Final Report* * * DATE OF EXAM: Mar 08 2024 8:11AM [facility] 0582 - TAYLOR SCREENING W AQUILES / PROCEDURE REASON: Encounter for screening mammogram for breast cancer * * * * Physician Interpretation * * * * RESULT: [place] [address] HISTORY: Patient is 73 years old and [...] Hipolito Black M.D. Electronically signed on: 03/08/2024 Rn Relief Charge: MARIAN Transcribe Date/Time: Mar 08 2024 7:35A Dictated by: HIPOLITO BLACK MD This examination was interpreted and the report reviewed and electronically signed by: HIPOLITO BLACK MD on Mar 08 2024 9:30AM EST [facility] Radiology Study observation (narrative) Rayna suggs [facility] DBT Breast - bilateral scree ningOrdered By: Ccdelfina Provider on 03-08-2024 [facility] TAYLOR SCREENING W TOMOon 03-08 TAYLOR SCREENING W AQUILES * * *Final Report* * * DATE OF EXAM: Mar 08 2024 8:11AM [facility] 0582 - TAYLOR SCREENING W AQUILES / PROCEDURE REASON: Encounter for screening mammogram for breast cancer * * * * Physician Interpretation * * * * RESULT: [facility] [address] [place] [address] HISTORY: Patient is 73 years old and [...] Hipolito Black M.D. Electronically signed on: 03/08/2024 Rn Relief Charge: MARIAN Transcribe Date/Time: Mar 08 2024 7:35A Dictated by: HIPOLITO BLACK MD This examination was interpreted and the report reviewed and electronically signed by: HIPOLITO BLACK MD on Mar 08 2024 9:30AM EST [id number] Normal [facility] CNOVon 02-22-2024 CNOV Office Visit (GYURWP ) ----- PHYLLIS SANCHEZ ([id number]) 1950 F Date Time Provider Department 02/22/24 [...] There were no complications. Complications: none LOT: [id number] Exp: 2026-04-16 Procedure Summary: Patient tolerated procedure well. Medications: Prophylactic antibiotics Plan: Follow up 1 month for postop check via nurse phone call. If she's doing well plan for 1y postop in October 2024. If not can follow up for another visit. 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 #:[id number] Prescriptions as of 02/22/2024 - alendronate [...] Status:Closed by MICHAEL MANZANARES on 02/22/24 Normal [facility] UA DIP, URINE (POC)on 2023 BILIRUBIN UA (POCT) Negative Negative [facility] CLARITY UA (POCT) Clear [facility] COLOR UA (POCT) Yellow [facility] GLUCOSE UA (POCT) Negative Negative mg/dL [facility] Hemoglobin Ql (U) Negative Negative [facility] KETONE UA (POCT) Negative Negative mg/dL [facility] LEUKOCYTES UA (POCT) Negative Negative [facility] NITRITE UA (POCT) Negative [facility] PH UA (POCT) 8.0 4.5 - 8.0 [facility] Protein Ql (U) Negative Negative mg/dL [facility] SPECIFIC GRAVITY UA (POCT) 1.015 1.005 - 1.030 [facility] UROBILINOGEN UA (POCT) 0.2 Elo l E.U./dL [facility] Location:[facility], [address] [place] [address], [address] [place] [address] POINT OF CARE [facility] CNOVon 02-05-2024 CNOV Office Visit (GYURWP ) ----- PHYLLIS SANCHEZ ([id number]) 1950 F Date Time Provider Department 02/05/24 [...] discussed with the Patient or Patient's Authorized Bus Operator. As applicable, any other physician, advance practice provider, medical student, or other health professional student that will be observing or involved in the sensitive examination for educational or training purposes was discussed with the Patient or Authorized Bus Operator. The Patient or Authorized Bus Operator has agreed to proceed with the sensitive examination. (Sensitive examination includes inspection and/or palpation of the breasts, pelvis, prostate and anorectal regions) Powerhouse Engineer declined. OBJECTIVE: BP 130/82 Ht 154.9 cm (5' 1") Wt 45.4 kg (100 lb) BMI 18.89 [...] Assessed Re (more content not included)... Normal [facility] 02-05-2024 [facility] Tele[facility] (GYURWP) ----- DANIELPHYLLIS ([id number]) 1950 F Date Time Provider Department 02/05/24 MICHAEL MANZANARES During your visit today, we recorded the following information about you: Elizabeth Tomas RN 02/05/2024 3:43 PM Signed Bulkamid referral [...] Patient scheduled with Dr. Manzanares 02/21 at [facility] and in need of ppx abx. Sending to diesel service technician for orders. Eden Karimi RN February 11, 2024 1:13 PM === PHARMACY TEAM ==== NO AUTHORIZATION REQUIRED Per [facility] Registration, patient has Medicare Part B [...] Status:Closed by ELIZABETH TOMAS on 02/05/24 Normal [facility] UA DIP, URINE (POC)on 2023 BILIRUBIN UA (POCT) Negative Negative [facility] CLARITY UA (POCT) Clear [facility] COLOR UA (POCT) Yellow [facility] GLUCOSE UA (POCT) Negative Negative mg/dL [facility] Hemoglobin Ql (U) Large Abnormal Negative [facility] Interpretation and review of laboratory results Abnormal [facility] KETONE UA (POCT) Negative Negative mg/dL [facility] LEUKOCYTES UA (POCT) Negative Negative [facility] NITRITE UA (POCT) Negative Negative [facility] PH UA (POCT) 8.0 4.5 - 8.0 [facility] Protein Ql (U) Negative Negative mg/dL [facility] SPECIFIC GRAVITY UA (POCT) 1.015 1.005 - 1.030 [facility] UROBILINOGEN UA (POCT) 0.2 Elo l E.U./dL [facility] Location:[facility], [address] [place], [place], [address] [place] [address] POINT OF CARE [facility] ANES POSTPROC EVALon 024 ANES POSTPROC EVAL HNO ID: [id number] Author: JUSTINO HENDERSON MD Service: Anesthesiology Author Type: Anesthesiologist Type: Anesthesia Postprocedure Evaluation Filed: 10/27/2023 16:04 Note Text: POST ANESTHESIA EVALUATION NOTE : 1950 Procedure Summary Date: 10/27/23 Room / Location: ORA / [facility] OR Anesthesia Start: 731 Anesthesia Stop: 1057 [...] October 27, 2023 TIME: 4:04 PM CSN: [id number] [facility] ANES PRE-OPon 10-27-2023 ANES PRE-OP HNO ID: [id number] Author: JUSTINO HENDERSON MD Service: Anesthesiology Author Type: Anesthesiologist Type: Anesthesia Preprocedure Evaluation Filed: 10/27/2023 07:08 Note Text: ANESTHESIOLOGY DAY OF SURGERY NOTE : 1950 Procedure Information Date/Time: 10/27/2330 Procedures: COLPOPEXY VAGINAL VAULT SUSPENSION INTRA-PERITONEAL APPROACH (Bilateral: Vagina ) HYSTERECTOMY VAGINAL UTERUS 250G OR LESS REMOVAL TUBE(S) AND/OR OVARY(S) (Vagina ) COMBINED ANTERIOPOSTERIOR COLPORRHAPHY INCLUDING CYSTOURETHROSCOPY WHEN PERFORMED (Vagina ) PERINEOPLASTY, NON-OBSTETRICAL (Vagina ) Location: [facility] / OR Surgeons: Michael Manzanares MD Estimated body mass index is 19.59 kg/m? as calculated from the following: Height as of 10/16/23: 153.7 cm (5' 0.5"). Weight as of 10/16/23: 46.3 kg (102 [...] and consent discussed: yes. Patient / Responsible Green Party agrees to proceed: yes Patient / [...] October 27, 2023 TIME: 6:55 AM CSN: [id number] [facility] BRIEF OP NOTon 10-27-2023 BRIEF OP NOT HNO ID: [id number] Author: DOROTA BARR DO Service: Urogynecology Author Type: Fellow Type: Brief Op Note Filed: 10/27/2023 10:45 Note Text: BRIEF OPERATIVE / PROCEDURE NOTE LOG ID: [id number] Surgery/Procedure Date: 10/27/2023 Incision/Procedure Start Time: 8:10 AM Incision Close/Procedure End Time: 10:32 AM Surgeon(s)/Proceduralist( s) and Cloud Physicist(s): Surgeon(s) and Role: * Michael Manzanares MD [...] Fecal incontinence Post-Op/Post-Procedure Diagnosis: same SIGNATURE: Dorota Barr, DATE: October 27, 2023 PATIENT NAME: Phyllis Sanchez TIME: 10:44 AM [facility] CONFIRM BLOOD TYPEon 024 ABO A [facility] Comment on above: Order Comment: Speci men Type: BLOOD SPECIMEN Ordering Facility: [facility] Address: [address] [place] [address] Performed By: #### C ONABO #### [facility] CLIA [id number] [address] [place] [address] [place] Rh Nom (Bld) Positive [facility] Comment on above: Order Comment: Speci men Type: BLOOD SPECIMEN Ordering Facility: [facility] Address: [address] [place] [address] Performed By: #### C ONABO #### [facility] CLIA [id number] [address] [place] [address] [place] NURSING PROGon 10-27-2023 NURSING PROG HNO ID: [id number] Author: JEANE VILLARREAL RN Service: ? Author Type: Registered Nurse Type: Nursing Progress Note Filed: 10/27/2023 18:13 Note Text: Other: voiding trial started. 1730 Patient failed voiding trial. Allen catheter placed. Notified Dr. Brar. 1745 Per instructions- patient instructed to follow up in [place] office on Thursday for Allen catheter removal and to check MYCHART for time of appointment. Normal [facility] OPERATIVE NOon 10-27-2023 OPERATIVE NO HNO ID: [id number] Author: MICHAEL MANZANARES MD Service: Urogynecology Author Type: Physician Type: Operative Report Filed: 10/29/2023 11:30 Note Text: OPERATIVE/PROCEDURE REPORT LOG ID: [id number] Surgery/Procedure Date: 10/27/2023 Incision/Procedure Start Time: 8:10 AM Incision Close/Procedure End Time: 10:32 AM Surgeon(s)/Proceduralist( s) and Cloud Physicist(s): Surgeon(s) and Role: * Michael Manzanares MD [...] entered sharply with Herrmann scissors. A long Alahji weighted retractor was then placed into the [...] grabbed the right fallopian tube with a Hartman. It was clamped with a Zeppelin clamp, cut and suture ligated with a 2-0 Vicryl. Excellent hemostasis was noted. All specimen were sent to pathology. A [id number] sutures of 0-Vicryl was placed along the right lateral vaginal cuff for hemostasis. The long weighted retractor was then re (more content not included)... Normal [facility] SURGICAL PATHOLOGYon 024 CASE REPORT Normal [facility] Comment on above: Order Comment: Speci men Type: TISSUE SPECIMEN Ordering Facility: [facility] Address: [address] [place] [address] Result Comment: Surg ical Pathology Report Case: [id number] Authorizing Provider: Michael Manzanares MD Collected: 10/27/2023 08:38 AM Ordering Location: [facility] Received: 10/27/2023 11:10 AM Surgical Services Pathologist: Isabella Lin MD Specimens: A) - Uterus and Cervix B) - Fallopian Tube, Right, Resection, right fallopian tube Performed By: #### S #### [facility] CLIA [id number] [address] [place] [address] [place] CLINICAL HISTORY Normal [facility] Comment on above: Order Comment: Speci men Type: TISSUE SPECIMEN Ordering Facility: [facility] Address: [address] [place] [address] Result Comment: Pre- op diagnosis: Uterovaginal prolapse, incomplete [N81.2] Cystocele, midline [N81.11] Rectocele [N81.6] Performed By: #### S #### [facility] CLIA [id number] [address] [place] [address] [place] FINAL DIAGNOSIS [facility] Comment on above: Order Comment: Speci men Type: TISSUE SPECIMEN Ordering Facility: [facility] Address: [address] [place] [address] Result Comment: A. U terus and cervix, vaginal hysterectomy -Cervix: No significant pathologic abnormality -Endometrium: Benign inactive endometrium -Myometrium: No significant pathologic abnormality -Serosa: No significant pathologic abnormality B. Fallopian tube, right, salpingectomy -Fimbriated fallopian tube with no significant pathologic abnormality Performed By: #### S #### [facility] CLIA [id number] [address] [place] [address] [place] FINAL PERFORMING LAB Normal [facility] Comment on above: Order Comment: Speci men Type: TISSUE SPECIMEN Ordering Facility: [facility] Address: [address] [place] [address] Result Comment: Diag nostic interpretation performed at [facility], [address] [place] [address] CLIA# [id number] Veneer Jointer Operator: Chase Will M.D. Performed By: #### S #### [facility] CLIA [id number] [address] [place] [address] [place] GROSS DESCRIPTION Normal [facility] Comment on above: Order Comment: Speci men Type: TISSUE SPECIMEN Ordering Facility: [facility] Address: [address] [place] [address] Result Comment: A. U terus and Cervix Received in formalin labeled "uterus and cervix" is a uterus with attached cervix only, [...] 1.0 cm in thickness and is unremarkable. Bus Operator sections are submitted as follows: A1 anterior cervix at 12:00 A2 posterior cervix at 6:00 A3 anterior uterine wall full-thickness A4 posterior uterine wall full-thickness B. Fallopian Tube, Right, Resection Received in formalin labeled "right fallopian tube" is a 3.5 cm in length by 0.4 cm in diameter fimbriated fallopian tube. The outer surface is pink and unremarkable. Sectioning reveals a pinpoint lumen and unremarkable cut surfaces. The specimen is sectioned and entirely submitted in one cassette. Gross examination performed at [facility], [address] [facility], [place] [address] CLIA# [id number] [facility] 10/27/23 Performed By: #### S #### [facility] CLIA [id number] [address] [place] [address] [id number] [place] [address] [place] TYPE + SCREENon 10-27-2023 ABO A Normal [facility] Comment on above: Order Comment: Speci men Type: BLOOD SPECIMENOrdering Facility: [facility] Address: [address] [place] [address] Performed By: #### T SCR ####[facility] [id number] [place] [address] [place] HISTORICAL AB SCR STATUS Negative [facility] Comment on above: Order Comment: Speci men Type: BLOOD SPECIMENOrdering Facility: [facility] Address: [address] [place] [address] Performed By: #### T SCR ####[facility] [id number] [place] [address] [place] Rh Nom (Bld) Positive [facility] Comment on above: Order Comment: Speci men Type: BLOOD SPECIMENOrdering Facility: [facility] Address: [address] [place] [address] Performed By: #### T SCR ####[facility] [id number] [place] [address] [place] TYPE AND SCREEN EXPIRATION 10/30/2023 23:59 [facility] Comment on above: Order Comment: Speci men Type: BLOOD SPECIMENOrdering Facility: [facility] Address: [address] [place] [address] Performed By: #### T SCR ####[facility] [id number] [place] [address] [place] 25-hydroxyvitamin D3 [Mass/V ol]on 09-28-2023 Interpretation and review of laboratory results Normal [facility] The reference range interval was based on an analysis of samples from healthy adults and may not pertain to children from 0-18 years old. [facility] VITAMIN D 25 HYDROXYon 09-27 25-hydroxyvitamin D3 [Mass/Vol] 51.1 ng/mL 31.0 - 80.0 ng/mL [facility] Comment on above: Classification of 25 [place] Vitamin D status: Deficiency/Insufficiency: < or = 30 ng/ml. Sufficiency/Optimal Levels: 31-80 ng/mL Toxicity: > 100 ng/mL. Test performed by chemiluminescent immunoassay. UA DIP, URINE (POC)on 2023 BILIRUBIN UA (POCT) Negative Negative [facility] CLARITY UA (POCT) Clear [facility] COLOR UA (POCT) Yellow [facility] GLUCOSE UA (POCT) Negative Negative mg/dL [facility] Hemoglobin Ql (U) Negative Negative [facility] KETONE UA (POCT) Negative Negative mg/dL [facility] LEUKOCYTES UA (POCT) Negative Negative [facility] NITRITE UA (POCT) Negative Negative [facility] PH UA (POCT) 6.0 4.5 - 8.0 [facility] Protein Ql (U) Negative Negative mg/dL [facility] SPECIFIC GRAVITY UA (POCT) 1.015 1.005 - 1.030 [facility] UROBILINOGEN UA (POCT) 0.2 E.U./dL Elo l E.U./dL [facility] Gram stain for investigation of transfusion reactionOrdered By: Marcos Puente on 06-01-2023 Microscopic observation Gram stain Nom (Unsp spec) [facility] Microscopic observation Gram stain Nom (Unsp spec) [facility] No Panel InformationOrdered By: Marcos Puente on 06-01-2023 Nasopharyngeal Culture No growth in 48 hours. [facility] Nasopharyngeal Culture No growth in 48 hours. [facility] Basophil percentageOrdered B y: Abdirahman Mensah on 03-17-2023 Basophil percentage < 0.9 mg/dL 0.55-1.02 [facility] No Panel InformationOrdered By: Abdirahman Mensah on 03-17-2023 Bedside Estimated GFR (eGFR) > 60.0000 mL/min >60 [facility] XR Foot - right AP and Later al and obliqueon 03-09-2023 IMPRESSION: Fracture fourth toe proximal phalanx Rn Relief Charge: JESS Transcribe Date/Time: Mar 09 2023 3:07P Dictated by : ISELA CALHOUN MD This examination was interpreted and the report reviewed and electronically signed by: ISELA CALHOUN MD on Mar 09 2023 3:09PM [facility] DIVISION OF RADIOLOGY * * *Final [...] evident. No subluxation. DIVISION OF RADIOLOGY Provider, [facility] - 03/09/2023 * * *Final Report* [...] IMPRESSION IMPRESSION: Fracture fourth toe proximal phalanx Rn Relief Charge: JESS Transcribe Date/Time: Mar 09 2023 3:07P Dictated by : ISELA CALHOUN MD This examination was interpreted and the report reviewed and electronically signed by: ISELA CALHOUN MD on Mar 09 2023 3:09PM [facility] XR Foot - right AP and Later al and obliqueOrdered By: Ccf Provider on 03-09-2023 [facility] TAYLOR SCREENING W Emy 03-06 [facility] Basic metabolic 2000 panelon 03-05-2023 Anion gap [Moles/Vol] 9 mmol/L 9 - 18 mmol/L [facility] Calcium [Mass/Vol] 9.0 mg/dL 8.5 - 10. 2 mg/dL [facility] Chloride [Moles/Vol] 104 mmol/L 97 - 10 5 mmol/L [facility] CO2 [Moles/Vol] 27 mmol/L 22 - 30 mmol/L [facility] Creatinine [Mass/Vol] 0.65 mg/dL 0.58 - 0.96 mg/dL [facility] Estimated Glomerular Filtration Rate 95 mL/min/1.73m >=60 mL/min/1.73 m [facility] Glucose [Mass/Vol] 75 mg/dL 74 - 99 mg/dL [facility] Potassium [Moles/Vol] 4.0 mmol/L 3.7 - 5.1 mmol/L [facility] Sodium [Moles/Vol] 140 mmol/L 136 - 144 mmol/L [facility] Urea nitrogen [Mass/Vol] 14 mg/dL 7 - 21 mg/dL [facility] CBC panel Auto (Bld)on 03-05 Erythrocyte distribution width (RBC) [Ratio] 13.3 % 11.5 - 15.0 % [facility] Hematocrit (Bld) [Volume fraction] 40.2 % 36.0 - 46.0 % [facility] Hemoglobin (Bld) [Mass/Vol] 13.1 g/dL 11.5 - 15.5 g/dL [facility] MCH (RBC) [Entitic mass] 30.5 pg 26.0 - 34.0 pg [facility] MCHC (RBC) [Mass/Vol] 32.6 g/dL 30.5 - 36.0 g/dL [facility] MCV (RBC) [Entitic vol] 93.5 fL 80.0 - 100.0 fL [facility] Nucleated RBC (Bld) [#/Vol] <0.01 k/uL [facility] Platelet mean volume (Bld) [Entitic vol] 10.4 fL 9.0 - 12.7 fL [facility] Platelets (Bld) [#/Vol] 236 10*3/uL 150 - 400 k/uL [facility] RBC (Bld) [#/Vol] 4.30 10*6/uL 3.90 - 5.2 0 m/uL [facility] WBC (Bld) [#/Vol] 4.15 10*3/uL 3.70 - 11.00 k/uL [facility] Urinalysis complete panel (U )on 03-05-2023 Bacteria LM.HPF (Urine sed) [#/Area] Negative Negative /HPF [facility] Bilirubin Ql (U) Negative [facility] Clarity (Unsp spec) Clear Clear [facility] Color (U) Yellow Yellow [facility] Epithelial cells LM.HPF (Urine sed) [#/Area] None Seen [facility] Glucose Test strip (U) [Mass/Vol] Negative Negative [facility] Hemoglobin Ql (U) Negative Negative [facility] Hyaline casts (Urine sed) [#/Area] 0 /[LPF] 0 /LPF [facility] Ketones Ql (U) Negative Negative [facility] Leukocyte esterase Test strip Ql (U) Negative Negative [facility] Nitrite Ql (U) Negative Negative [facility] pH (U) 6.5 [pH] <8.5 [facility] Protein (U) [Mass/Vol] Negative Negative Cl [facility] RBC LM.HPF (Urine sed) [#/Area] 0-2 /HPF 0-2 /HPF [facility] Specific gravity (U) [Rel density] 1.021 1.005 - 1.030 [facility] Urobilinogen Ql (U) 0.2 EU/dL 0.2-1.0 EU/dL [facility] WBC LM.HPF (Urine sed) [#/Area] 0-5 /HPF 0-5 /HPF [facility] XR Foot - right AP and Later al and obliqueon 03-05-2023 Radiology Study observation (narrative) [facility] XR Lumbar spine 3 Viewson IMPRESSION: DEGENERATIVE CHANGE IN ALIGNMENT ABNORMALITIES DESCRIBED. MILD PROGRESSION FROM THE PRIOR STUDY Rn Relief Charge: JESS Transcribe Date/Time: Sep 02 2022 5:17P Dictated by : DIONE DAVIS MD This examination was interpreted and the report reviewed and electronically signed by: DIONE DAVIS MD on Sep 02 2022 5:18PM [facility] DIVISION OF RADIOLOGY * * *Final [...] are unremarkable DIVISION OF RADIOLOGY Provider, Clayton Alvarado - 09/02/2022 * * *Final Report* [...] DESCRIBED. MILD PROGRESSION FROM THE PRIOR STUDY Rn Relief Charge: PSCB Transcribe Date/Time: Sep 02 2022 5:17P Dictated by : DIONE DAVIS MD This examination was interpreted and the report reviewed and electronically signed by: DIONE DAVIS MD on Sep 02 2022 5:18PM EST [facility] XR Lumbar spine 3 ViewsOrder ed By: Ccf Provider on 09-02-2022 [facility] XR Lumbar spine 3 Viewson Radiology Study observation (narrative) [facility] STREP A MOLECULAR (POC)on Procedural Control Valid [facility] Strep A (POCT) Negative Negative [facility] UA DIP, URINE (POC)on 2021 BILIRUBIN UA (POCT) Negative Negative [facility] CLARITY UA (POCT) Clear [facility] COLOR UA (POCT) Light yellow [facility] GLUCOSE UA (POCT) Negative Negative mg/dL [facility] HEMOGLOBIN/BLOOD UA (POCT) Negative Negative [facility] KETONE UA (POCT) Negative Negative mg/dL [facility] LEUKOCYTES UA (POCT) Negative Negative [facility] NITRITE UA (POCT) Negative Negative [facility] PH UA (POCT) 6.5 4.5 - 8.0 [facility] Protein Ql (U) Negative Negative mg/dL [facility] SPECIFIC GRAVITY UA (POCT) 1.015 1.005 - 1.030 [facility] UROBILINOGEN UA (POCT) 0.2 E.U./dL Elo l E.U./dL [facility] TAYLOR SCREENING W TOMOon 01-16 [facility] XR Chest PA and Lateralon IMPRESSION: No acute radiographic abnormality. Rn Relief Charge: PSCB Transcribe Date/Time: Jun 19 2021 11:45A Dictated by : DIONE DAVIS MD This examination was interpreted and the report reviewed and electronically signed by: DIONE DAVIS MD on Jun 19 2021 11:45AM [facility] DIVISION OF RADIOLOGY * * *Final [...] soft tissues: Unremarkable. DIVISION OF RADIOLOGY Provider, [facility] [place] - 06/19/2021 * * *Final Report* * [...] Unremarkable. IMPRESSION IMPRESSION: No acute radiographic abnormality. Rn Relief Charge: JESS Transcribe Date/Time: Jun 19 2021 11:45A Dictated by : DIONE DAVIS MD This examination was interpreted and the report reviewed and electronically signed by: DIONE DAVIS MD on Jun 19 2021 11:45AM EST [facility] Radiology Study observation (narrative) [facility] XR Chest PA and LateralOrder ed By: Ccf Provider on 06-19-2021 [facility] XR Shoulder - right 3 ViewsO rdered By: Ccf Provider on 06-18-2021 Interpretation and review of laboratory results Abnormal [facility] Radiology Result ACTIONABLE Abnormal [facility] Comment on above: This report contains an incidental or actionable finding. This is a new finding that is separate from the reason your provider ordered the imaging test. Because of this incidental or actionable finding, you may need another imaging test to evaluate it. Please contact your provider for the next steps. [facility] XR Shoulder - right 3 Viewso n [...] be communicated with the ordering provider via Text[employer] staff message or phone message by Imaging Support Services within 2 business days of report finalization. Algorithms for management of incidental imaging findings can be found on the [facility] Intranet Sharepoint site at: [email or web address] [email or web address]/ [email or web address] Rn Relief Charge: JESS Transcribe Date/Time: Jun 18 2021 12:35P Dictated by : PIOTR GREENFIELD MD This examination was interpreted and the report reviewed and electronically signed by: PIOTR GREENFIELD MD on Jun 18 2021 12:36PM [facility] DIVISION OF RADIOLOGY * * *Final [...] right midlung zone. DIVISION OF RADIOLOGY Provider, [facility]/18/[facility] * * *Final Report* * [...] be communicated with the ordering provider via [employer] staff message or phone message by [facility] within 2 business days of report finalization. Algorithms for management of incidental imaging findings can be found on the [facility] Intranet Sharepoint site at: [email or web address] [email or web address] Rn Relief Charge: JESS Transcribe Date/Time: Jun 18 2021 12:35P Dictated by : PIOTR GREENFIELD MD This examination was interpreted and the report reviewed and electronically signed by: PIOTR GREENFIELD MD on Jun 18 2021 12:36PM EST [facility] Radiology Study observation (narrative) [facility] No Panel Informationon 03-18 Radiology Study observation (narrative) [facility] XR Lumbar spine 3 Viewson IMPRESSION: Spondylosis and curvature of the lumbar spine. Rn Relief Charge: JESS Transcribe Date/Time: Mar 18 2021 4:46P Dictated by : ALEJANDRO CANO MD This examination was interpreted and the report reviewed and electronically signed by: ALEJANDRO CANO MD on Mar 18 2021 4:47PM [facility] DIVISION OF RADIOLOGY * * *Final [...] unremarkable in appearance. DIVISION OF RADIOLOGY Provider, Clayton purvis [place] - 03/18/2021 * * *Final Report* * [...] Spondylosis and curvature of the lumbar spine. Rn Relief Charge: JESS Transcribe Date/Time: Mar 18 2021 4:46P Dictated by : ALEJANDRO CANO MD This examination was interpreted and the report reviewed and electronically signed by: ALEJANDRO CANO MD on Mar 18 2021 4:47PM EST [facility] XR Lumbar spine 3 ViewsOrder ed By: [facility] Provider on 03-18-2021 [facility] XR Sacroiliac Joint Viewson 03-18-2021 IMPRESSION: No radiographic evidence of sacroiliitis Rn Relief Charge: [facility] Transcribe Date/Time: Mar 18 2021 4:50P Dictated [...] and stool. DIVISION OF RADIOLOGY Provider, Clayton Avelar [facility] - 03/18/2021 * * *Final Report* * [...] IMPRESSION IMPRESSION: No radiographic evidence of sacroiliitis Rn Relief Charge: JESS Transcribe Date/Time: Mar 18 2021 4:50P Dictated by : PIOTR GREENFIELD MD This examination was interpreted and the report reviewed and electronically signed by: PIOTR GREENFIELD MD on Mar 18 2021 4:51PM [facility] Vital Signs Date Time Vital Sign Value Performing Clinician Facility 02-02-2025 09:10-0400 Body height 152.4 [facility] Work Phone: [facility] 02-02-2025 09:10-0400 Body mass index (BMI) [Ratio] 20.5 kg/m2 [facility] PRINTER TECHNICIAN-C Work Phone: [facility] 02-02-2025 09:10-0400 Body temperature 97.9 [degF] [facility] Work Phone: [facility] 02-02-2025 09:10-0400 Body weight 47.62 kg [facility]CH[facility] Work Phone: [facility] 02-02-2025 09:10-0400 Diastolic blood pressure 85 mm[Hg] [facility] Work Phone: [facility] 02-02-2025 09:10-0400 Heart rate 71 /min CHRISTINA OLDER PRINTER TECHNICIAN-C Work Phone: [facility] 02-02-2025 09:10-0400 SaO2% (BldA) [Mass fraction] 98 % CHRISTINA OLDER PRINTER TECHNICIAN-C Work Phone: [facility] 02-02-2025 09:10-0400 Systolic blood pressure 154 mm[Hg] CHRISTINA OLDER PRINTER TECHNICIAN-C Work Phone: [facility] 01-25-2025 11:27-0400 Diastolic blood pressure 82 mm[Hg] CHRISTINA OLDER PRINTER TECHNICIAN-C Work Phone: [facility] 01-25-2025 11:27-0400 Heart rate 72 /min CHRISTINA OLDER PRINTER TECHNICIAN-C Work Phone: [facility] 01-25-2025 11:27-0400 Respiratory rate 18 /min CHRISTINA OLDER PRINTER TECHNICIAN-C Work Phone: [facility] 01-25-2025 11:27-0400 SaO2% (BldA) [Mass fraction] 99 % CHRISTINA OLDER PRINTER TECHNICIAN-C Work Phone: [facility] 01-25-2025 11:27-0400 Systolic blood pressure 150 mm[Hg] CHRISTINA OLDER PRINTER TECHNICIAN-C Work Phone: [facility] 01-04-2025 09:29-0400 Diastolic blood pressure 71 mm[Hg] Christina Older ELECTROCHEMIST.IMMIGRATION CONSULTANT Work Phone: [facility] Comment on above: BP Jeffry 01-04-2025 09:29-0400 Systolic blood pressure 121 mm[Hg] Christina Older ELECTROCHEMIST.IMMIGRATION CONSULTANT Work Phone: [facility] Comment on above: BP Jeffry 01-04-2025 08:49-0400 Body height 155.4 cm Christina Older ELECTROCHEMIST.IMMIGRATION CONSULTANT Work Phone: [facility] 01-04-2025 08:49-0400 Body mass index (BMI) [Ratio] 19.35 kg/m2 Christina Older ELECTROCHEMIST.IMMIGRATION CONSULTANT Work Phone: [facility] 01-04-2025 08:49-0400 Body weight 46.72 kg Christina Older ELECTROCHEMIST.IMMIGRATION CONSULTANT Work Phone: [facility] 01-04-2025 08:49-0400 Heart rate 80 /min Christina Older ELECTROCHEMIST.IMMIGRATION CONSULTANT Work Phone: [facility] 01-04-2025 08:49-0400 Respiratory rate 16 /min Christina Older ELECTROCHEMIST.IMMIGRATION CONSULTANT Work Phone: [facility] 01-04-2025 08:49-0400 SaO2% (BldA) [Mass fraction] 96 % Christina Older ELECTROCHEMIST.IMMIGRATION CONSULTANT Work Phone: [facility] 12-29-2024 13:10-0400 Body height 152.4 cm CHRISTINA OLDER PRINTER TECHNICIAN-C Work Phone: [facility] 12-29-2024 13:10-0400 Body mass index (BMI) [Ratio] 20.4 kg/m2 CHRISTINA OLDER PRINTER TECHNICIAN-C Work Phone: [facility] 12-29-2024 13:10-0400 Body temperature 98.4 [degF] CHRISTINA OLDER PRINTER TECHNICIAN-C Work Phone: [facility] 12-29-2024 13:10-0400 Body weight 47.4 kg CHRISTINA OLDER PRINTER TECHNICIAN-C Work Phone: [facility] 12-29-2024 13:10-0400 Diastolic blood pressure 86 mm[Hg] CHRISTINA OLDER PRINTER TECHNICIAN-C Work Phone: [facility] 12-29-2024 13:10-0400 Heart rate 69 /min CHRISTINA OLDER PRINTER TECHNICIAN-C Work Phone: [facility] 12-29-2024 13:10-0400 Respiratory rate 14 /min CHRISTINA OLDER PRINTER TECHNICIAN-C Work Phone: [facility] 12-29-2024 13:10-0400 SaO2% (BldA) [Mass fraction] 98 % CHRISTINA OLDER PRINTER TECHNICIAN-C Work Phone: [facility] 12-29-2024 13:10-0400 Systolic blood pressure 145 mm[Hg] CHRISTINA OLDER PRINTER TECHNICIAN-C Work Phone: [facility] 12-15-2024 08:31-0400 Body height 152.4 cm CHRISTINA OLDER PRINTER TECHNICIAN-C Work Phone: [facility] 12-15-2024 08:31-0400 Body mass index (BMI) [Ratio] 20.2 kg/m2 CHRISTINA OLDER PRINTER TECHNICIAN-C Work Phone: [facility] 12-15-2024 08:31-0400 Body temperature 97.3 [degF] CHRISTINA OLDER PRINTER TECHNICIAN-C Work Phone: [facility] 12-15-2024 08:31-0400 Body weight 46.94 kg CHRISTINA OLDER PRINTER TECHNICIAN-C Work Phone: [facility] 12-15-2024 08:31-0400 Diastolic blood pressure 84 mm[Hg] CHRISTINA OLDER PRINTER TECHNICIAN-C Work Phone: [facility] 12-15-2024 08:31-0400 Heart rate 76 /min CHRISTINA OLDER PRINTER TECHNICIAN-C Work Phone: [facility] 12-15-2024 08:31-0400 Respiratory rate 16 /min CHRISTINA OLDER PRINTER TECHNICIAN-C Work Phone: [facility] 12-15-2024 08:31-0400 SaO2% (BldA) [Mass fraction] 96 % CHRISTINA OLDER PRINTER TECHNICIAN-C Work Phone: [facility] 12-15-2024 08:31-0400 Systolic blood pressure 151 mm[Hg] CHRISTINA OLDER PRINTER TECHNICIAN-C Work Phone: [facility] 11-08-2024 15:10-0400 Body temperature 97.6 [degF] CHRISTINA OLDER PRINTER TECHNICIAN-C Work Phone: [facility] 11-08-2024 15:10-0400 Diastolic blood pressure 70 mm[Hg] CHRISTINA OLDER PRINTER TECHNICIAN-C Work Phone: [facility] 11-08-2024 15:10-0400 Heart rate 71 /min CHRISTINA OLDER PRINTER TECHNICIAN-C Work Phone: [facility] 11-08-2024 15:10-0400 Respiratory rate 16 /min CHRISTINA OLDER PRINTER TECHNICIAN-C Work Phone: [facility] 11-08-2024 15:10-0400 SaO2% (BldA) [Mass fraction] 100 % CHRISTINA OLDER PRINTER TECHNICIAN-C Work Phone: [facility] 11-08-2024 15:10-0400 Systolic blood pressure 124 mm[Hg] CHRISTINA OLDER PRINTER TECHNICIAN-C Work Phone: [facility] 11-08-2024 13:42-0400 Body height 152.4 cm CHRISTINA OLDER PRINTER TECHNICIAN-C Work Phone: [facility] 11-08-2024 13:42-0400 Body mass index (BMI) [Ratio] 20.5 kg/m2 CHRISTINA OLDER PRINTER TECHNICIAN-C Work Phone: [facility] 11-08-2024 13:42-0400 Body weight 47.6 kg CHRISTINA OLDER PRINTER TECHNICIAN-C Work Phone: [facility] 11-08-2024 08:20-0400 Body mass index (BMI) [Ratio] 19.65 kg/m2 Dung Holman ELECTROCHEMIST.IMMIGRATION CONSULTANT Work Phone: [facility] 11-08-2024 08:20-0400 Body weight 47.17 kg Dung Holman ELECTROCHEMIST.IMMIGRATION CONSULTANT Work Phone: [facility] 11-08-2024 08:20-0400 Diastolic blood pressure 84 mm[Hg] Dung Holman ELECTROCHEMIST.IMMIGRATION CONSULTANT Work Phone: [facility] 11-08-2024 08:20-0400 Heart rate 90 /min Dung Holman ELECTROCHEMIST.IMMIGRATION CONSULTANT Work Phone: [facility] 11-08-2024 08:20-0400 Systolic blood pressure 145 mm[Hg] Dung Holman ELECTROCHEMIST.IMMIGRATION CONSULTANT Work Phone: [facility] 10-24-2024 08:35-0400 Body height 152.4 cm CHRISTINA OLDER PRINTER TECHNICIAN-C Work Phone: [facility] 10-24-2024 08:35-0400 Body mass index (BMI) [Ratio] 20.6 kg/m2 CHRISTINA OLDER PRINTER TECHNICIAN-C Work Phone: [facility] 10-24-2024 08:35-0400 Body weight 47.85 kg CHRISTINA OLDER PRINTER TECHNICIAN-C Work Phone: [facility] 10-24-2024 08:35-0400 Diastolic blood pressure 84 mm[Hg] CHRISTINA OLDER PRINTER TECHNICIAN-C Work Phone: [facility] 10-24-2024 08:35-0400 Heart rate 70 /min CHRISTINA OLDER PRINTER TECHNICIAN-C Work Phone: [facility] 10-24-2024 08:35-0400 Respiratory rate 16 /min CHRISTINA OLDER PRINTER TECHNICIAN-C Work Phone: [facility] 10-24-2024 08:35-0400 SaO2% (BldA) [Mass fraction] 97 % CHRISTINA OLDER PRINTER TECHNICIAN-C Work Phone: [facility] 10-24-2024 08:35-0400 Systolic blood pressure 153 mm[Hg] CHRISTINA OLDER PRINTER TECHNICIAN-C Work Phone: [facility] 09-13-2024 08:32-0400 Body height 152.4 cm CHRISTINA OLDER PRINTER TECHNICIAN-C Work Phone: [facility] 09-13-2024 08:32-0400 Body mass index (BMI) [Ratio] 20.9 kg/m2 CHRISTINA OLDER PRINTER TECHNICIAN-C Work Phone: [facility] 09-13-2024 08:32-0400 Body weight 48.53 kg CHRISTINA OLDER PRINTER TECHNICIAN-C Work Phone: [facility] 09-13-2024 08:32-0400 Diastolic blood pressure 85 mm[Hg] CHRISTINA OLDER PRINTER TECHNICIAN-C Work Phone: [facility] 09-13-2024 08:32-0400 Heart rate 75 /min CHRISTINA OLDER PRINTER TECHNICIAN-C Work Phone: [facility] 09-13-2024 08:32-0400 Respiratory rate 16 /min CHRISTINA OLDER PRINTER TECHNICIAN-C Work Phone: [facility] 09-13-2024 08:32-0400 SaO2% (BldA) [Mass fraction] 96 % CHRISTINA OLDER PRINTER TECHNICIAN-C Work Phone: [facility] 09-13-2024 08:32-0400 Systolic blood pressure 136 mm[Hg] CHRISTINA OLDER PRINTER TECHNICIAN-C Work Phone: [facility] 07-04-2024 13:06-0500 Body mass index (BMI) [Ratio] 20.7 kg/m2 CHRISTINA OLDER PRINTER TECHNICIAN-C Work Phone: [facility] 07-04-2024 13:06-0500 Body weight 48.19 kg CHRISTINA OLDER PRINTER TECHNICIAN-C Work Phone: [facility] 07-04-2024 13:06-0500 Diastolic blood pressure 90 mm[Hg] CHRISTINA OLDER PRINTER TECHNICIAN-C Work Phone: [facility] 07-04-2024 13:06-0500 Respiratory rate 18 /min CHRISTINA OLDER PRINTER TECHNICIAN-C Work Phone: [facility] 07-04-2024 13:06-0500 SaO2% (BldA) [Mass fraction] 96 % CHRISTINA OLDER PRINTER TECHNICIAN-C Work Phone: [facility] 07-04-2024 13:06-0500 Systolic blood pressure 142 mm[Hg] CHRISTINA OLDER PRINTER TECHNICIAN-C Work Phone: [facility] 03-31-2024 07:16-0500 Body mass index (BMI) [Ratio] 19.65 kg/m2 Christina Older ELECTROCHEMIST.IMMIGRATION CONSULTANT Work Phone: [facility] 03-31-2024 07:16-0500 Body weight 47.17 kg Christina Older ELECTROCHEMIST.IMMIGRATION CONSULTANT Work Phone: [facility] 03-31-2024 07:16-0500 Respiratory rate 16 /min Christina Older ELECTROCHEMIST.IMMIGRATION CONSULTANT Work Phone: [facility] 02-22-2024 13:41-0400 Diastolic blood pressure 72 mm[Hg] Michael Manzanares MD Work Phone: [facility] 02-22-2024 13:41-0400 Systolic blood pressure 132 mm[Hg] Michael Manzanares MD Work Phone: [facility] 02-05-2024 11:36-0400 Body height 154.9 cm Michael Manzanares MD Work Phone: [facility] 02-05-2024 11:36-0400 Body mass index (BMI) [Ratio] 18.89 kg/m2 Michael Manzanares MD Work Phone: [facility] 02-05-2024 11:36-0400 Body weight 45.36 kg Michael Manzanares MD Work Phone: [facility] 02-05-2024 11:36-0400 Diastolic blood pressure 82 mm[Hg] Michael Manzanares MD Work Phone: [facility] 02-05-2024 11:36-0400 Systolic blood pressure 130 mm[Hg] Michael Manzanares MD Work Phone: [facility] 12-02-2023 10:25-0400 Diastolic blood pressure 84 mm[Hg] Michael Manzanares MD Work Phone: [facility] 12-02-2023 10:25-0400 Heart rate 87 /min Michael Manzanares MD Work Phone: [facility] 12-02-2023 10:25-0400 Systolic blood pressure 134 mm[Hg] Michael Manzanares MD Work Phone: [facility] 10-30-2023 09:53-0400 Diastolic blood pressure 70 mm[Hg] Uro Pond Work Phone: [facility] 10-30-2023 09:53-0400 Systolic blood pressure 128 mm[Hg] Uro Pond Work Phone: [facility] 10-16-2023 13:03-0400 Body height 153.7 cm Pacc 1 Work Phone: [facility] 10-16-2023 13:03-0400 Body mass index (BMI) [Ratio] 19.59 kg/m2 Pacc 1 Work Phone: [facility] 10-16-2023 13:03-0400 Body temperature 98.4 [degF] Pacc 1 Work Phone: [facility] 10-16-2023 13:03-0400 Body weight 46.27 kg Pacc 1 Work Phone: [facility] 10-16-2023 13:03-0400 Diastolic blood pressure 88 mm[Hg] Pacc 1 Work Phone: [facility] 10-16-2023 13:03-0400 Heart rate 85 /min Pacc 1 Work Phone: [facility] 10-16-2023 13:03-0400 Respiratory rate 14 /min Pacc 1 Work Phone: [facility] 10-16-2023 13:03-0400 SaO2% (BldA) [Mass fraction] 98 % Pacc 1 Work Phone: [facility] 10-16-2023 13:03-0400 Systolic blood pressure 136 mm[Hg] Pacc 1 Work Phone: [facility] 09-28-2023 07:29-0400 Body height 154.9 cm Christina Older ELECTROCHEMIST.IMMIGRATION CONSULTANT Work Phone: [facility] 09-28-2023 07:29-0400 Body mass index (BMI) [Ratio] 19.46 kg/m2 Christina Older ELECTROCHEMIST.IMMIGRATION CONSULTANT Work Phone: [facility] 09-28-2023 07:29-0400 Body weight 46.72 kg Christina Older ELECTROCHEMIST.IMMIGRATION CONSULTANT Work Phone: [facility] 09-28-2023 07:29-0400 Diastolic blood pressure 72 mm[Hg] Christina Older ELECTROCHEMIST.IMMIGRATION CONSULTANT Work Phone: [facility] 09-28-2023 07:29-0400 Heart rate 88 /min Christina Older ELECTROCHEMIST.IMMIGRATION CONSULTANT Work Phone: [facility] 09-28-2023 07:29-0400 Respiratory rate 12 /min Christina Older ELECTROCHEMIST.IMMIGRATION CONSULTANT Work Phone: [facility] 09-28-2023 07:29-0400 SaO2% (BldA) [Mass fraction] 95 % Christina Older ELECTROCHEMIST.IMMIGRATION CONSULTANT Work Phone: [facility] 09-28-2023 07:29-0400 Systolic blood pressure 130 mm[Hg] Christina Older ELECTROCHEMIST.IMMIGRATION CONSULTANT Work Phone: [facility] 08-06-2023 14:32-0400 Body height 152.4 cm PRINTER TECHNICIAN-C CHRISTINA OLDER Work Phone: [facility] 08-06-2023 14:32-0400 Body mass index (BMI) [Ratio] 21.2 kg/m2 PRINTER TECHNICIAN-C CHRISTINA OLDER Work Phone: [facility] 08-06-2023 14:32-0400 Body weight 49.44 kg PRINTER TECHNICIAN-C CHRISTINA OLDER Work Phone: [facility] 07-29-2023 08:07-0400 Body weight 47.6 kg Michael Manzanares MD Work Phone: [facility] 07-29-2023 08:07-0400 Diastolic blood pressure 78 mm[Hg] Michael Manzanares MD Work Phone: [facility] 07-29-2023 08:07-0400 Heart rate 87 /min Michael Manzanares MD Work Phone: [facility] 07-29-2023 08:07-0400 Systolic blood pressure 131 mm[Hg] Michael Manzanares MD Work Phone: [facility] 04-16-2023 09:24-0500 Body weight 46.54 kg Marcelina Madrigal MD Work Phone: [facility] 04-16-2023 09:24-0500 Diastolic blood pressure 80 mm[Hg] Marcelina Madrigal MD Work Phone: [facility] 04-16-2023 09:24-0500 Systolic blood pressure 138 mm[Hg] Marcelina Madrigal MD Work Phone: [facility] 03-05-2023 07:56-0400 Body weight 47.17 kg Christina Older ELECTROCHEMIST.IMMIGRATION CONSULTANT Work Phone: [facility] 03-05-2023 07:56-0400 Diastolic blood pressure 74 mm[Hg] Christina Older ELECTROCHEMIST.IMMIGRATION CONSULTANT Work Phone: [facility] 03-05-2023 07:56-0400 Heart rate 64 /min Christina Older ELECTROCHEMIST.IMMIGRATION CONSULTANT Work Phone: [facility] 03-05-2023 07:56-0400 Respiratory rate 16 /min Christina Older ELECTROCHEMIST.IMMIGRATION CONSULTANT Work Phone: [facility] 03-05-2023 07:56-0400 SaO2% (BldA) [Mass fraction] 97 % Christina Older ELECTROCHEMIST.IMMIGRATION CONSULTANT Work Phone: [facility] 03-05-2023 07:56-0400 Systolic blood pressure 116 mm[Hg] Christina Older ELECTROCHEMIST.IMMIGRATION CONSULTANT Work Phone: [facility] 07-11-2022 13:00-0500 Body temperature 98.1 [degF] Marlen Madrigal ELECTROCHEMIST.IMMIGRATION CONSULTANT Work Phone: [facility] 07-11-2022 13:00-0500 Body weight 46.09 kg Marlen Madrigal ELECTROCHEMIST.IMMIGRATION CONSULTANT Work Phone: [facility] 07-11-2022 13:00-0500 Diastolic blood pressure 88 mm[Hg] Marlen Madrigal ELECTROCHEMIST.IMMIGRATION CONSULTANT Work Phone: [facility] 07-11-2022 13:00-0500 Heart rate 97 /min Marlen Madrigal APRN.IMMIGRATION CONSULTANT Work Phone: [facility] 07-11-2022 13:00-0500 Respiratory rate 18 /min Marlen Madrigal APRN.IMMIGRATION CONSULTANT Work Phone: [facility] 07-11-2022 13:00-0500 SaO2% (BldA) [Mass fraction] 97 % Marlen Madrigal APRN.IMMIGRATION CONSULTANT Work Phone: [facility] 07-11-2022 13:00-0500 Systolic blood pressure 128 mm[Hg] Marlen Madrigal APRN.IMMIGRATION CONSULTANT Work Phone: [facility] 04-28-2022 10:47-0500 Body temperature 99 [degF] Jerrell Sarmiento MD Work Phone: [facility] 04-28-2022 10:47-0500 Body weight 44.63 kg Jerrell Sarmiento MD Work Phone: [facility] 04-28-2022 10:47-0500 Diastolic blood pressure 80 mm[Hg] Jerrell Sarmiento MD Work Phone: [facility] 04-28-2022 10:47-0500 Heart rate 82 /min Jerrell Sarmiento MD Work Phone: [facility] 04-28-2022 10:47-0500 Respiratory rate 16 /min Jerrell Sarmiento MD Work Phone: [facility] 04-28-2022 10:47-0500 SaO2% (BldA) [Mass fraction] 96 % Jerrell Sarmiento MD Work Phone: [facility] 04-28-2022 10:47-0500 Systolic blood pressure 122 mm[Hg] Jerrell Sarmiento MD Work Phone: [facility] 04-24-2022 09:04-0500 Body height 152.4 cm No Primary Care Physician [facility] 04-23-2022 10:24-0500 Body temperature 98 [degF] No Primary Care Physician [facility] 04-23-2022 10:24-0500 Diastolic blood pressure 64 mm[Hg] No Primary Care Physician [facility] 04-23-2022 10:24-0500 Heart rate 93 /min No Primary Care Physician [facility] 04-23-2022 10:24-0500 Respiratory rate 18 /min No Primary Care Physician [facility] 04-23-2022 10:24-0500 SaO2% (BldA) [Mass fraction] 94 % No Primary Care Physician [facility] 04-23-2022 10:24-0500 Systolic blood pressure 130 mm[Hg] No Primary Care Physician [facility] 04-23-2022 06:18-0500 Body height 152.4 cm No Primary Care Physician [facility] Work Phone: 04-23-2022 06:18-0500 Body mass index (BMI) [Ratio] 19.3 kg/m2 No Primary Care Physician [facility] 04-23-2022 06:18-0500 Body weight 44.9 kg No Primary Care Physician [facility] 04-20-2022 11:11-0500 Diastolic blood pressure 80 mm[Hg] No Primary Care Physician [facility] 04-20-2022 11:11-0500 Heart rate 70 /min No Primary Care Physician [facility] 04-20-2022 11:11-0500 Respiratory rate 16 /min No Primary Care Physician [facility] 04-20-2022 11:11-0500 SaO2% (BldA) [Mass fraction] 98 % No Primary Care Physician [facility] 04-20-2022 11:11-0500 Systolic blood pressure 130 mm[Hg] No Primary Care Physician [facility] 04-20-2022 09:06-0500 Body height 154.94 cm No Primary Care Physician [facility] Work Phone: 04-20-2022 09:06-0500 Body mass index (BMI) [Ratio] 20 kg/m2 No Primary Care Physician [facility] 04-20-2022 09:06-0500 Body temperature 97 [degF] No Primary Care Physician [facility] 04-20-2022 09:06-0500 Body weight 48 kg No Primary Care Physician [facility] 02-06-2022 09:24-0400 Body height 152.4 cm Tanya Dobson ELECTROCHEMIST.IMMIGRATION CONSULTANT Work Phone: [facility] 02-06-2022 09:240400 Body weight 46.27 kg Tanya Dobson APRN.IMMIGRATION CONSULTANT Work Phone: [facility] 02-06-2022 09:24-0400 Diastolic blood pressure 82 mm[Hg] Tanya Dobson APRN.IMMIGRATION CONSULTANT Work Phone: [facility] 02-06-2022 09:24-0400 Respiratory rate 14 /min Tanya Dobson APRN.IMMIGRATION CONSULTANT Work Phone: [facility] 02-06-2022 09:24-0400 Systolic blood pressure 126 mm[Hg] Tanya Dobson APRN.IMMIGRATION CONSULTANT Work Phone: [facility] 12-19-2021 10:08-0400 Body height 154.94 cm No Primary Care Physician [facility] Work Phone: 12-19-2021 10:08-0400 Body mass index (BMI) [Ratio] 19.3 kg/m2 No Primary Care Physician [facility] Work Phone: 12-19-2021 10:08-0400 Body weight 46.43 kg No Primary Care Physician [facility] Work Phone: Encounters Encounter Date Encounter Type Care Provider Facility Start: 05-25-2025 [facility] TALYA Facility:[facility] Start: 02-17-2025 ambulatory Melba Raygoza ty:[facility] Start: 02-09-2025 ambulatory Melba Raygoza ty:[facility] Start: 02-08-2025 ambulatory Melba Raygoza ty:[facility] Start: 02-06-2025 End: 02-06-2025 ambulatory Melba Pinon Facility:[facility] Start: 02-02-2025 End: 02-02-2025 Patient encounter procedure Melba WORLEYC -[facility] Work Phone: Start: 02-02-2025 End: 02-02-2025 ambulatory CHRISTINA WORLEYC Work Phone: -[facility] Start: 01-25-2025 Patient encounter procedure Melba MCGILL -[facility] Work Phone: Start: 01-25-2025 End: 01-25-2025 ambulatory CHRISTINA OLDER Facility:[facility] Start: 01-17-2025 End: 01-18-2025 Telephone encounter Murphy Cuevas MD Work Phone: [facility] Comment on above: Orders Start: 01-05-2025 End: 01-05-2025 ambulatory [facility] Facility:[facility] Start: 01-04-2025 End: 01-04-2025 [facility] Facility:[facility] Start: 01-04-2025 End: 01-04-2025 Patient encounter procedure Christina Older MILAGROS Work Phone: [facility] Comment on above: Medicare annual well ness visit, subsequent (Primary Dx); Montez's esophagus without dysplasia; Osteopenia, unspecified location; Medication management; Screening for depression; Encounter for screening examination for other mental health and behavioral disorders; Encounter for immunization; Lipid screening Start: 01-02-2025 End: 01-02-2025 ambulatory Tanya Plascencia MA [facility] Start: 01-02-2025 End: 01-02-2025 Patient encounter procedure Tanya Plascencia MA [facility] Comment on above: Population Health Na vigation Outreach (Donaldo/Workbed[employer]/ACO ) Start: 12-29-2024 End: 12-29-2024 Patient encounter procedure Melba MCGILL -[facility] Work Phone: Start: 12-29-2024 End: 12-29-2024 ambulatory CHRISTINA OLDER PRINTER TECHNICIAN-C Work Phone: -[facility] Start: 12-16-2024 End: 12-16-2024 ambulatory CHRISTINA OLDER PRINTER TECHNICIAN-C Work Phone: -Laboratory Start: 12-16-2024 End: 12-16-2024 Patient encounter procedure Melba MCGILL -Laboratory Work Phone: Start: 12-15-2024 End: 12-15-2024 Patient encounter procedure Melba Pinon PRINTER TECHNICIAN-C -[facility] Work Phone: Start: 12-15-2024 End: 12-16-2024 ambulatory CHRISTINA MARTIN PRINTER TECHNICIAN-C Work Phone: -[facility] Start: 12-03-2024 End: 12-03-2024 ambulatory CHRISTINA MARTIN PRINTER TECHNICIAN-C Work Phone: -Laboratory Start: 12-03-2024 End: 12-03-2024 Patient encounter procedure Melba WORLEYC -Laboratory Work Phone: Start: 12-03-2024 End: 12-03-2024 ambulatory Melba Pinon Facility:[facility] Start: 11-08-2024 Non-patient / Non-visit Dhiraj Dowd nd, DO -[facility] Start: 11-08-2024 End: 11-08-2024 Admission to same day surgery center Dhiraj King DO -Endoscopy Work Phone: Start: 11-08-2024 End: 11-08-2024 ambulatory CHRISTINA MARTIN PRINTER TECHNICIAN-C Work Phone: [facility] Work Phone: Start: 11-08-2024 End: 11-08-2024 Patient encounter procedure Dung Holman ELECTROCHEMIST.IMMIGRATION CONSULTANT Work Phone: URO/Gynecology Comment on above: Post-operative state (Primary Dx); JEMIMA (stress urinary incontinence, female); Vaginal atrophy; Vaginal adhesions, postprocedural Start: 11-08-2024 End: 11-08-2024 ambulatory DUNG HOLMAN Facility:[facility] Start: 10-24-2024 End: 10-24-2024 Patient encounter procedure Melba Pinon NP-C -[facility] Work Phone: Start: 10-24-2024 End: 10-24-2024 ambulatory CHRISTINA MARTIN PRINTER TECHNICIAN-C Work Phone: [facility] Work Phone: Start: 10-14-2024 End: 10-14-2024 ambulatory CHRISTINA OLDER PRINTER TECHNICIAN-C Work Phone: [facility] Work Phone: Start: 10-14-2024 End: 10-14-2024 Patient encounter procedure Melba WORLEYC -Cat Scan [facility] Work Phone: Start: 10-14-2024 End: 10-14-2024 ambulatory Melba Pinon Facility:[facility] Start: 09-13-2024 End: 09-13-2024 Patient encounter procedure Melba Pinon NP-C -[facility] Work Phone: Start: 09-13-2024 End: 09-13-2024 ambulatory CHRISTINA OLDER [facility] Start: 07-04-2024 End: 07-04-2024 Patient encounter procedure Melba Pinon NP-C -[facility] Work Phone: Start: 07-04-2024 End: 07-04-2024 ambulatory CHRISTINA OLDER Facility:[facility] Start: 06-01-2024 ambulatory CHRISTINA OLDER Facility:[facility] Start: 06-01-2024 End: 06-01-2024 ambulatory CHRISTINA OLDER Facility:[facility] Start: 05-03-2024 End: 05-03-2024 ambulatory [facility] Facility:[facility] Start: 04-12-2024 [facility] Start: 03-31-2024 End: 03-31-2024 ambulatory CHRISTINA OLDER Facility:[facility] Start: 03-31-2024 End: 03-31-2024 ambulatory CHRISTINA OLDER Facility:[facility] Start: 03-31-2024 End: 03-31-2024 Patient encounter procedure Christina Older ELECTROCHEMIST.IMMIGRATION CONSULTANT Work Phone: [facility] Comment on above: Elevated blood press ure reading (Primary Dx); Genitourinary syndrome of menopause Start: 03-23-2024 End: 03-23-2024 Telephone encounter Michael Manzanares MD Work Phone: URO/Gynecology Comment on above: Care Coordination (B ulkamid Follow-Up) Start: 03-21-2024 End: 03-21-2024 ambulatory [facility] Facility:[facility] Start: 03-08-2024 End: 03-08-2024 ambulatory MURPHY GANMARIO Facility:[facility] Start: 03-08-2024 End: 03-08-2024 Subsequent hospital visit by physician Screen Mammo [facility] Mammogram Comment on above: Encounter for screen ing mammogram for breast cancer [Z12.31] Start: 02-22-2024 End: 02-22-2024 ambulatory MICHAEL MANZANARES Facility:[facility] Start: 02-22-2024 End: 02-22-2024 Patient encounter procedure Michael Manzanares MD Work Phone: URO/Gynecology Comment on above: Intrinsic sphincter deficiency (ISD) (Primary Dx); JEMIMA (stress urinary incontinence, female) Start: 02-05-2024 End: 02-05-2024 Telephone encounter Michael Manzanares MD Work Phone: URO/Gynecology Comment on above: Care Coordination ([place] ulkaalyssa) Start: 02-05-2024 End: 02-05-2024 ambulatory MICHAEL MANZANARES Facility:[facility] Start: 02-05-2024 End: 02-05-2024 Patient encounter procedure Michael Manzanares MD Work Phone: URO/Gynecology Comment on above: JEMIMA (stress urinary incontinence, female) (Primary Dx); Cystocele, midline; Rectocele Start: 01-28-2024 End: 01-28-2024 Refill Murphy Cuevas MD Work Phone: Internal [facility] Comment on above: Refill Request Start: 12-02-2023 End: 12-02-2023 Patient encounter procedure Michael Manzanares MD Work Phone: [facility] Comment on above: Mixed stress and urg e urinary incontinence (Primary Dx); Uterovaginal prolapse, incomplete; Cystocele, midline Start: 10-30-2023 End: 10-30-2023 Patient encounter procedure Uro Studio Designer Nurse Calderon Dotson Work Phone: URO/Gynecology Comment on above: Encounter for urine test (Primary Dx) Start: 10-30-2023 End: 10-30-2023 Patient encounter status Uro Nila Work Phone: [facility] Start: 10-27-2023 End: 10-27-2023 ambulatory [facility] Facility:[facility] Start: 10-16-2023 End: 10-16-2023 PAT [facility] Work Phone: Pre Anesthesia Comment on above: Pre-operative examin ation (Primary Dx); Chronic left-sided low back pain without sciatica; Uterovaginal prolapse, incomplete; Cystocele, midline; Rectocele; Osteoporosis, unspecified osteoporosis type, unspecified pathological fracture presence; Solitary pulmonary nodule; Hx of seizure disorder Start: 10-16-2023 End: 10-16-2023 Preprocedural examination done [facility] Work Phone: [facility] Work Phone: Start: 10-13-2023 End: 10-13-2023 ambulatory [facility] [employer] Nurse Vega Work Phone: [facility] Comment on above: Educational circumst ance (Primary Dx) Start: 10-13-2023 End: 10-13-2023 Telemedicine consultation with patient [employer] Nurse Gary Work Phone: [facility] Start: 10-01-2023 End: 10-01-2023 Subsequent hospital visit by physician Bone Density [facility] Work Phone: Radiology Comment on above: Encounter for screen ing for osteoporosis [Z13.820] Start: 09-28-2023 Telephone encounter Zachary dunaway MD Work Phone: URO/Gynecology Start: 09-28-2023 End: 09-28-2023 Patient encounter procedure Christina Martin APRN.CNP Work Phone: Internal [facility] Comment on above: Osteopenia, unspecif ied location (Primary Dx); Encounter for screening for osteoporosis; Asymptomatic postmenopausal status; Annual physical exam Start: 08-28-2023 End: 08-28-2023 ambulatory PRINTER TECHNICIAN-C CHRISTINA MARTIN Work Phone: [facility] Work Phone: Start: 08-28-2023 End: 08-28-2023 Patient encounter procedure PRINTER TECHNICIAN-C CHRISTINA MARTIN Work Phone: [facility] Work Phone: Start: 08-24-2023 Telephone encounter Michael Manzanares MD Work Phone: [facility] Comment on above: Returning Patient's Call Start: 08-06-2023 End: 08-06-2023 Patient encounter procedure PRINTER TECHNICIAN-C CHRISTINA MARTIN Work Phone: [facility] Work Phone: Start: 08-06-2023 Telephone encounter Michael Manzanares MD Work Phone: [facility] Comment on above: Schedule Surgery Start: 08-03-2023 End: 08-03-2023 ambulatory PRINTER TECHNICIAN-C CHRISTINA MARTIN Work Phone: [facility] Work Phone: Start: 08-03-2023 End: 08-03-2023 Patient encounter procedure PRINTER TECHNICIAN-C CHRISTINA MARTIN Work Phone: [facility] Work Phone: Start: 07-30-2023 End: 07-30-2023 Patient encounter procedure PRINTER TECHNICIAN-C CHRISTINA MARTIN Work Phone: [facility] Work Phone: Start: 07-29-2023 End: 07-29-2023 Patient encounter procedure Michael Manzanares MD Work Phone: [facility] Comment on above: Cystocele, midline ( Primary Dx); Mixed stress and urge urinary incontinence; Vaginal atrophy; Uterovaginal prolapse, incomplete; Rectocele; Preop examination Start: 07-29-2023 End: 07-29-2023 Preprocedural examination done Michael Manzanares MD Work Phone: [facility] Work Phone: Start: 06-18-2023 End: 06-18-2023 ambulatory [facility] Work Phone: Start: 06-18-2023 End: 06-18-2023 [facility] Work Phone: Start: 06-01-2023 End: 06-01-2023 ambulatory [facility] Work Phone: Start: 06-01-2023 End: 06-01-2023 Patient encounter procedure [facility]-Laboratory, Specimen Work Phone: Start: 05-07-2023 ambulatory Kristen gilbert APRN.IMMIGRATION CONSULTANT Work Phone: Gastroenterology Start: 04-16-2023 End: 04-16-2023 Patient encounter procedure Marcelina Madrigal MD Work Phone: OB/Gynecology Comment on above: Cystocele, midline ( Primary Dx); Uterine prolapse Start: 03-17-2023 End: 03-17-2023 ambulatory [facility] Work Phone: Start: 03-17-2023 End: 03-17-2023 Patient encounter procedure [facility] Scan, [facility] Work Phone: Start: 03-10-2023 Telephone encounter Christina Martin APRN.IMMIGRATION CONSULTANT Work Phone: Internal [facility] Comment on above: Results Start: 03-09-2023 Documentation procedure Mammog jayne Coordinator [facility] Start: 03-09-2023 Letter encounter Mammography Coordinator [facility] Department Start: 03-06-2023 End: 03-06-2023 Subsequent hospital visit by physician Screen Mammo [facility] Mammogram Comment on above: Encounter for screen ing mammogram for breast cancer [Z12.31] Start: 03-05-2023 End: 03-05-2023 Subsequent hospital visit by physician Xr [facility] Work Phone: Radiology Comment on above: Right foot pain [M79 .671] Start: 03-05-2023 End: 03-05-2023 Patient encounter procedure Christina Martin APRN.IMMIGRATION CONSULTANT Work Phone: Internal [facility] Comment on above: Osteopenia, unspecif ied location (Primary Dx); Bladder pain; Toe pain, right; Right foot pain; Need for influenza vaccination Start: 03-04-2023 ambulatory Murphy Suggs Work Phone: Internal Medicine [facility] [place] Start: 09-01-2022 End: 09-01-2022 Subsequent hospital visit by physician Dax [facility] Work Phone: Radiology Comment on above: Chronic right-sided low back pain without sciatica [M54.50, G89.29] Start: 07-11-2022 End: 07-11-2022 Patient encounter procedure Marlen Madrigal APRN.IMMIGRATION CONSULTANT Work Phone: [facility] Comment on above: Sore throat (Primary Dx) Start: 06-04-2022 End: 06-04-2022 ambulatory No Primary Care Physician [facility] Work Phone: Start: 06-04-2022 End: 06-04-2022 Discharged Recurring No Primary Care Physician [facility]-Physical Therapy Start: 06-03-2022 End: 06-03-2022 Patient encounter procedure No Primary Care Physician [facility] Start: 05-06-2022 End: 05-06-2022 Patient encounter procedure No Primary Care Physician [facility] Start: 04-28-2022 End: 04-28-2022 Patient encounter procedure Jerrell Sarmiento MD Work Phone: [facility] Comment on above: Acute non-recurrent sinusitis, unspecified location (Primary Dx) Start: 04-25-2022 End: 04-25-2022 Patient encounter procedure No Primary Care Physician [facility] Start: 04-23-2022 Non-patient / Non-visit No [facility] Physician [facility] Start: 04-23-2022 End: 04-23-2022 Admission to same day surgery center No Primary Care Physician [facility]-Surgical Day Care Start: 04-23-2022 End: 04-23-2022 ambulatory No Primary Care Physician [facility] Work Phone: Start: 04-20-2022 End: 04-20-2022 Emergency department patient visit No Primary Care Physician [facility]-Emergency Department Start: 03-03-2022 End: 03-03-2022 Patient encounter procedure No Primary Care Physician [facility] Start: 02-24-2022 End: 02-24-2022 ambulatory No Primary Care Physician [facility] Work Phone: Start: 02-24-2022 End: 02-24-2022 Patient encounter procedure No Primary Care Physician [facility] Start: 02-21-2022 End: 02-21-2022 Patient encounter procedure No Primary Care Physician [facility] Start: 02-06-2022 End: [...] MAIN Start: 01-16-2022 Letter encounter Mammography Coordinator [facility] Department Start: 01-16-2022 End: 01-16-2022 Subsequent hospital visit by physician Screen Mammo [facility] Mamm[facility] Comment on above: Encounter for screen ing mammogram for breast cancer [Z12.31] Start: 12-19-2021 End: 12-19-2021 Patient encounter procedure No Primary Care Physician [facility] Start: 08-30-2021 Refill Murphy Suggs Work Phone: Internal [facility] Comment on above: Refill Request Start: 06-19-2021 End: 06-19-2021 Subsequent hospital visit by physician Xr [facility] Work Phone: Radiology Comment on above: Abnormal x-ray [R93. 89] Start: 06-18-2021 End: 06-18-2021 Subsequent hospital visit by physician Xr [facility] Work Phone: Radiology Comment on above: ov Start: 03-18-2021 End: 03-18-2021 Subsequent hospital visit by physician Xr [facility] Work Phone: Radiology Comment on above: Osteopenia, unspecif ied location [M85.80] Procedures Date Procedure Procedure Detail Performing Clinician Start: 01-25-2025 MRI of small intestine CHRISTINA MARTIN PRINTER TECHNICIAN-C Work Phone: Start: 01-05-2025 Lipid 1996 panel - Serum or Plasma Mayra Cuevas MD Work Phone: Start: 01-04-2025 Adult depression screening assessment Christina Martin ELECTROCHEMIST.IMMIGRATION CONSULTANT Work Phone: Start: 12-16-2024 Total iron binding capacity measurement CHRISTINA OLDER PRINTER TECHNICIAN-C Work Phone: Start: 12-03-2024 Intrinsic factor antibody measurement CHRISTINA OLDER PRINTER TECHNICIAN-C Work Phone: Comment on above: Performed at: [facility] [address] [id number] Director: Joao Burnham MD, Phone: [phone] at: [facility] [address] [id number] Director: Joaquin Lombardo PhD, Phone: [phone] Start: 11-08-2024 Esophagogastroduodenoscopy CHRISTINA MARTIN PRINTER TECHNICIAN- C Work Phone: Start: 10-14-2024 Computed tomography of abdomen and pelvis with contrast CHRISTINA MARTIN PRINTER TECHNICIAN-C Work Phone: Start: 03-08-2024 Screening digital breast tomosynthesis bi Bulk Order Provider Start: 02-22-2024 Urnls dip stick/tablet rgnt auto w/o microscopy Michael Manzanares MD Work Phone: Start: 10-30-2023 Urnls dip stick/tablet rgnt auto w/o microscopy [facility] Provider Start: 10-27-2023 Antibody screen MICHAEL MANZANARES Comment on above: Order Comment: Specimen Type: BLOOD SPEC IMENOrdering Facility: [facility] Address: [address] [place] [address] Performed By: #### T SCR ####GREGORYJESUSITA BLOOD BANKIA [id number] [place] [address] [place] Start: 09-28-2023 Adult depression screening assessment Murphy Cuevas MD Work Phone: Start: 09-28-2023 Lipid 1995 panel - Serum or Plasma Zachary Nguyen MD Work Phone: Start: 08-28-2023 Ultrasonography of limb PRINTER TECHNICIAN-C CHRISTINA MARTIN Work Phone: Start: 08-03-2023 Other BP Soft Tissue PRINTER TECHNICIAN-C CHRISTINA MARTIN Work Phone: Start: 07-29-2023 Urnls dip stick/tablet rgnt auto w/o microscopy Michael Manzanares MD Work Phone: Start: 06-18-2023 CT of face Start: 06-01-2023 Investigation of transfusion reaction Start: 06-01-2023 Nasopharyngeal Culture Start: 03-17-2023 Computed tomography of abdomen and pelvis with contrast Start: 03-06-2023 Screening digital breast tomosynthesis bi Tanya Dobson ELECTROCHEMIST.IMMIGRATION CONSULTANT Work Phone: Start: 03-05-2023 Radex foot complete minimum 3 views Christina Martin ELECTROCHEMIST.IMMIGRATION CONSULTANT Work Phone: Start: 03-05-2023 INFLUENZA VACCINE, PRSV FREE, AGE 65+ YR, HIGH DOSE, QUADRIVALENT (FLUZONE HIGH-DOSE) Christina Martin ELECTROCHEMIST.IMMIGRATION CONSULTANT Work Phone: Start: 09-02-2022 Lipid 1996 panel - Serum or Plasma Christina ortega ELECTROCHEMIST.IMMIGRATION CONSULTANT Work Phone: Start: 09-01-2022 Radex spine lumbosacral 2/3 views Christina schultz ELECTROCHEMIST.IMMIGRATION CONSULTANT Work Phone: Start: 07-11-2022 STREP A MOLECULAR (POC) Marlen Madrigal ELECTROCHEMIST.IMMIGRATION CONSULTANT Work Phone: Start: 04-23-2022 Arthroscopy of knee No Primary Care Physician Start: 04-20-2022 CT of chest without contrast No Primary Care Physician Start: 02-24-2022 MRI of joint of lower extremity No Prima ry Care Physician Start: 02-06-2022 Urnls dip stick/tablet rgnt auto w/o microscopy Tanya Dobson ELECTROCHEMIST.IMMIGRATION CONSULTANT Work Phone: Start: 01-16-2022 TAYLOR SCREENING W AQUILES Tanya Dobson ELECTROCHEMIST.IMMIGRATION CONSULTANT Work Phone: Start: 01-16-2022 Mammography Screen [facility] Start: 12-19-2021 Radiologic examination of knee No Primar y Care Physician Start: 06-19-2021 Radiologic exam chest 2 views Alondra díaz ELECTROCHEMIST.IMMIGRATION CONSULTANT Work Phone: Start: 06-18-2021 Radex shoulder complete minimum 2 views Alondra Pelletier ELECTROCHEMIST.IMMIGRATION CONSULTANT Work Phone: Start: 03-18-2021 Radex spine lumbosacral 2/3 views Murphy Cuevas MD Work Phone: Start: 03-18-2021 Adult depression screening assessment Murphy Cuevas MD Work Phone: Start: 12-20-2020 Mammography Murphy Cuevas MD Work Phone: Start: 07-02-2018 Colonoscopy Murphy Cuevas MD Work Phone: Plan of Treatment Date Care Activity Detail Author Start: 01-05-2030 Lipid panel Lipid Screening [facility] Start: 09-27-2028 Lipid panel Lipid Screening [facility] Start: 07-02-2028 Colonoscopy COLONOSCOPY [facility] Start: 07-02-2028 COLORECTAL CANCER SCREENING COLORECTAL CANCER SCREENING [facility] Start: 07-02-2028 Screening for malignant neoplasm of colon [facility] Start: 01-06-2028 Diabetes Screening Diabetes Screening [facility] Start: 09-03-2027 Lipid 1996 panel - Serum or Plasma Lipid Screening [facility] Start: 09-03-2027 Lipid panel Lipid Screening [facility] Start: 09-27-2026 Diabetes Screening Diabetes Screening [facility] Start: 06-18-2026 LIPID SCREEN LIPID SCREEN [facility] Start: 03-05-2026 Diabetes Screening Diabetes Screening [facility] Start: 01-04-2026 Anxiety Screening Anxiety Screening [facility] Start: 01-04-2026 Depression Screening Depression Screening [facility] Start: 01-04-2026 Medicare Annual Wellness Visit Medicare Annual Wellness Visit [facility] Start: 09-30-2025 Screening for osteoporosis Bone Density Screening [facility] Start: 05-16-2025 End: 05-16-2025 Patient encounter procedure 05/16/2025 8:00 AM EST Office Visit URO/Gynecology [address] [place] [address] Dung Holman APRN.IMMIGRATION CONSULTANT [address] [place] [address] 6 month follow up URO/Gynecology Comment on above: 6 month follow up Start: 03-10-2025 End: 03-10-2025 Patient encounter procedure 03/10/2025 8:30 AM EDT Appointment Mammogram [address] [place] [address] Mammogram Start: 03-08-2025 Screening for malignant neoplasm of breast Mammogram Screening [facility] Start: 02-15-2025 End: 02-15-2025 Patient encounter procedure 02/15/2025 9:40 AM EDT Office Visit [facility] [address] [place] [address] Christina Martin APRN.IMMIGRATION CONSULTANT [address] [place] [address] 6 week follow up [facility] Comment on above: 6 week follow up Start: 02-02-2025 Radionuclide gastric emptying study [facility] Start: 01-25-2025 Following clinical pathway protocol [facility] Start: 01-16-2025 Influenza vaccination Influenza Vaccine (#1) [facility] Start: 01-04-2025 End: 04-05-2025 25-hydroxyvitamin D3 [Mass/volume] in Serum or Plasma VITAMIN D 25 HYDROXY Lab Routine Osteopenia, unspecified location Medication management Expected: 01/04/2025, Expires: 04/05/2025 [facility] Work Phone: Comment on above: Expected: 01/04/2025, Expires: Start: 01-04-2025 End: 04-05-2025 CBC panel - Blood by Automated count COMPLETE BLOOD COUNT Lab Routine Osteopenia, unspecified location Medication management Expected: 01/04/2025, Expires: 04/05/2025 [facility] Comment on above: Expected: 01/04/2025, Expires: Start: 01-04-2025 End: 04-05-2025 Comprehensive metabolic 2000 panel - Serum or Plasma COMPREHENSIVE METABOLIC PANEL Lab Routine Lipid screening Osteopenia, unspecified location Medication management Expected: 01/04/2025, Expires: 04/05/2025 [facility] Comment on above: Expected: 01/04/2025, Expires: Start: 01-04-2025 End: 04-05-2025 Lipid 1996 panel - Serum or Plasma LIPID PANEL, FASTING Lab Routine Lipid screening Expected: 01/04/2025, Expires: 04/05/2025 [facility] Comment on above: Expected: 01/04/2025, Expires: Start: 01-04-2025 End: 04-05-2025 Magnesium [Mass/volume] in Serum or Plasma MAGNESIUM Lab Routine Medication management Expected: 01/04/2025, Expires: 04/05/2025 [facility] Comment on above: Expected: 01/04/2025, Expires: Start: 01-04-2025 End: 04-05-2025 Phosphate [Mass/volume] in Serum or Plasma PHOSPHORUS INORGANIC Lab Routine Medication management Expected: 01/04/2025, Expires: 04/05/2025 [facility] Comment on above: Expected: 01/04/2025, Expires: Start: 01-04-2025 End: 01-04-2025 Patient encounter procedure 01/04/2025 9:00 AM EDT Office Visit [facility] [address] [place], [place] [id number] Christina Martin APRN.IMMIGRATION CONSULTANT [address] [place] [address] annual medicare wellness [facility] Comment on above: annual medicare wellness Start: 11-08-2024 Egd transoral biopsy single/multiple EGD BIOPSY SINGLE/MULTIPLE [facility] Start: 11-08-2024 Patient discharge [facility] Start: 10-24-2024 Patient referral [facility] Work Phone: Start: 10-17-2024 End: 10-17-2024 Patient encounter procedure 10/17/2024 9:00 AM EDT Office Visit URO/Gynecology [address] [place] [address] Michael Manzanares MD [address] [place] [id number] follow up URO/Gynecology Comment on above: follow up Start: 09-27-2024 Anxiety Screening Anxiety Screening [facility] Start: 09-27-2024 Covid-19 Vaccine () Covid-19 Vaccine () [facility] Comment on above: Postponed from 01/16/2023 (Declined at t his time) Start: 09-27-2024 Depression Screening Depression Screening [facility] Start: 09-27-2024 Urine microalbumin profile DTaP,Tdap,Td Vaccine (1 - Tdap) [facility] Comment on above: Postponed from 12/13/1969 (Declined at t his time) Start: 08-16-2024 Covid-19 Vaccine () Covid-19 Vaccine () [facility] Start: 06-18-2024 DIABETES SCREEN DIABETES SCREEN [facility] Start: 05-18-2024 Advance Directive Discussion Advance Directive Discussion [facility] Start: 04-18-2024 End: 04-18-2024 Patient encounter procedure 04/18/2024 9:20 AM EST Office Visit [facility] [address] [place] [address] Christina Martin APRN.IMMIGRATION CONSULTANT [address] [place] [address] 2 week follow up [facility] Comment on above: 2 week follow up Start: 03-31-2024 End: 03-31-2024 Patient encounter procedure 03/31/2024 7:20 AM EST Office Visit [facility] [address] [place] [address] Christina Martin ELECTROCHEMIST.IMMIGRATION CONSULTANT [address] [place] [address] 6 month follow up-labs and bone density [facility] Comment on above: 6 month follow up-labs and bone density Start: 03-08-2024 End: 03-08-2024 Patient encounter procedure 03/08/2024 7:30 AM EDT Appointment Mammogram [address] [place] [address] Encounter for screening mammogram for breast cancer [Z12.31] Mammogram Comment on above: Encounter for screening mammogram for br east cancer [Z12.31] Start: 03-06-2024 Mammography Mammogram Screening [facility] Start: 03-06-2024 Screening for malignant neoplasm of breast Mammogram Screening [facility] Start: 02-22-2024 End: 02-22-2024 Patient encounter procedure 02/22/2024 1:30 PM EDT Office Visit [place]RO/[place] [address] Michael Manzanares MD [address] [facility] [address] [place] [address] [facility] Comment on above: [facility] Start: 02-05-2024 End: 02-05-2024 Patient encounter procedure 02/05/2024 11:45 AM EDT Office Visit [place]RO/[place] [address] Michael Manzanares MD [address] [address] POST OP 3 MONTHS URO/Gynecology Comment on above: POST OP 3 MONTHS Start: 02-04-2024 End: 05-05-2024 CBC panel - Blood by Automated count CBC Lab Routine Uterovaginal prolapse, incomplete Preop examination Expected: 02/04/2024, Expires: 05/05/2024 [facility] Work Phone: Comment on above: Expected: 02/04/2024, Expires: Start: 01-28-2024 End: 01-28-2024 Patient encounter procedure 01/28/2024 8:30 AM EDT Office Visit [facility] [address] [address] Mara Landeros APRN.IMMIGRATION CONSULTANT [address] [place] [address] -x2 (Work) POST OP 3 MONTHS [facility] Comment on above: POST OP 3 MONTHS Start: 01-17-2024 Covid-19 Vaccine ( season) Covid-19 Vaccine ( season) [facility] Start: 01-17-2024 Covid-19 Vaccine ( season) Covid-19 Vaccine ( season) [facility] Start: 01-17-2024 Influenza vaccination [facility] Start: 12-02-2023 End: 12-02-2023 Patient encounter procedure 12/02/2023 10:30 AM EDT Office Visit [facility] [address] [address] Michael Manzanares MD [address] [address] POST OP 4-6 WEEKS [facility] Comment on above: POST OP 4-6 WEEKS Start: 10-27-2023 End: 10-27-2023 Admission to same day surgery center 10/27/2023 7:30 AM EDT - 10/27/2023 12:00 PM EDT Surgery [facility] [address] [place] [address] Michael Manzanares MD [address] [address] COLPOPEXY VAGINAL VAULT SUSPENSION INTRA-PERITONEAL APPROACH [facility] Comment on above: COLPOPEXY [...] physician 10/27/2023 7:30 AM EDT Hospital Encounter [facility] [address] [place] [address] Micahel Manzanares MD [address] [address] Uterovaginal prolapse, incomplete [N81.2] [facility] Comment on above: Uterovaginal prolapse, incomplete [N81.2 ] Start: 10-27-2023 End: 10-27-2023 Vag hyst 250 gm/< w/rmvl tube&/ovary HYSTERECTOMY VAGINAL UTERUS 250G OR LESS REMOVAL TUBE(S) AND/OR OVARY(S) Uterovaginal prolapse, incomplete Cystocele, midline Rectocele 10/27/2023 7:30 AM EDT [facility] OR Start: 10-16-2023 End: 10-16-2023 ambulatory 10/16/2023 2:00 PM EDT Results Only Donaldo Quinteros [facility] Laboratory [address] [place] [address] PRE OP [place]onaldo [place] [facility] Comment on above: PRE OP Start: 10-16-2023 End: 10-16-2023 Anesthesia consultation 10/16/2023 1:00 PM EDT PAT Pre Anesthesia [address] [place] [address] 1, Pacc Donaldo [address] [place] [address] PRE OP Pre Anesthesia Comment on above: PRE OP Start: 10-13-2023 End: 10-13-2023 ambulatory 10/13/2023 1:00 PM EDT [facility] [address] [address] Vega, [employer]ro Studio Designer Nurse [address] [address] PRE OP TEACHING TELEVISIT [facility] Comment on above: PRE OP TEACHING TELEVISIT Start: 10-01-2023 End: 10-01-2023 Patient encounter procedure 10/01/2023 7:45 AM EDT Appointment Radiology [address] [place] [id number] Encounter for screening for osteoporosis [Z13.820]; Asymptomatic postmenopausal status [Z78.0] Radiology Comment on above: Encounter for screening for osteoporosis [Z13.820]; Asymptomatic postmenopausal status [Z78.0] Start: 09-28-2023 End: 12-28-2023 Comprehensive metabolic 2000 panel - Serum or Plasma [facility] Comment on above: Expected: 09/28/2023, Expires: Start: 09-28-2023 End: 12-28-2023 Lipid 1996 panel - Serum or Plasma [facility] Work Phone: Comment on above: Expected: 09/28/2023, Expires: Start: 09-02-2023 Medicare Annual Wellness Visit Medicare Annual Wellness Visit [facility] Start: 09-02-2023 Urine microalbumin profile DTaP,Tdap,Td Vaccine (1 - Tdap) [facility] Comment on above: Postponed from 12/13/1971 (Declined at t his time) Start: 05-18-2023 Advance Directive Discussion Advance Directive Discussion [facility] Start: 05-18-2023 Behavioral Health Screening Behavioral Health Screening [facility] Start: 05-18-2023 Depression Assessment Depression Assessment [facility] Start: 01-16-2023 Covid-19 Vaccine () Covid-19 Vaccine () [facility] Start: 01-16-2023 Mammography [facility] Start: 05-18-2022 ADVANCE DIRECTIVE DISCUSSION ADVANCE DIRECTIVE DISCUSSION [facility] Start: 05-18-2022 DEPRESSION ASSESSMENT DEPRESSION ASSESSMENT [facility] Start: 04-28-2022 End: 05-12-2022 SARS-CoV-2 (COVID-19) RNA [Presence] in Respiratory specimen by FLACO with probe detection 2019 CORONAVIRUS Microbiology Routine Acute non-recurrent sinusitis, unspecified location Expected: 04/28/2022, Expires: 05/12/2022 [facility] Work Phone: Comment on above: Expected: 04/28/2022, Expires: 2 Start: 04-25-2022 Patient referral [facility] Work Phone: Start: 04-23-2022 Anes open/surg arthroscopic proc knee joint nos ANESTH KNEE JOINT SURGERY [facility] Start: 04-23-2022 Arthrs kne surg w/meniscectomy med/lat w/shvg KNEE ARTHROSCOPY/SURGERY [facility] Start: 04-23-2022 Patient discharge [facility] Start: 03-18-2022 Adult depression screening assessment DEPRESSION SCREENING [facility] Start: 01-16-2022 Influenza vaccination INFLUENZA (#1) [facility] Start: 12-20-2021 Mammography MAMMOGRAM [facility] Start: 07-24-2021 COVID-19 VACCINE (4 - Booster for Moderna series) COVID-19 VACCINE (4 - Booster for Moderna series) [facility] Start: 05-21-2021 COVID-19 VACCINE (4 - Booster for Moderna series) COVID-19 VACCINE (4 - Booster for Moderna series) [facility] Start: 05-18-2021 ADVANCE DIRECTIVE DISCUSSION ADVANCE DIRECTIVE DISCUSSION [facility] Start: 05-18-2021 DEPRESSION ASSESSMENT DEPRESSION ASSESSMENT [facility] Start: 06-05-2020 SHINGRIX VACCINE (2 of 2) SHINGRIX VACCINE (2 of 2) [facility] Start: 05-22-2019 PNEUMOCOCCAL: 65+ (2 - PPSV23 if available, else PCV20) PNEUMOCOCCAL: 65+ (2 - PPSV23 if available, else PCV20) [facility] Start: 05-22-2019 PNEUMOCOCCAL: 65+ (2 - PPSV23 or PCV20) PNEUMOCOCCAL: 65+ (2 - PPSV23 or PCV20) [facility] Start: 2017 PNEUMOVAX AGE 65 AND OVER WITH 5YR LOOKBACK (#1) PNEUMOVAX AGE 65 AND OVER WITH 5YR LOOKBACK (#1) [facility] Start: 2012 RSV Vaccine (1 - 1-dose 60+ series) RSV Vaccine (1 - 1-dose 60+ series) [facility] Start: 1997 COLOGUARD (FIT-DNA) COLOGUARD (FIT-DNA) [facility] Start: [address] COLONOGRAPHY [facility] Start: 1997 FECAL OCCULT BLOOD FECAL OCCULT BLOOD [facility] Start: 1997 Screening for malignant neoplasm of colon [facility] Start: 1997 SIGMOIDOSCOPY SIGMOIDOSCOPY [facility] Start: 12-13-1971 Urine microalbumin profile [facility] End: 10-27-2024 BD DXA TRABECULAR BONE SCORE (TBS) BD DXA TRABECULAR BONE SCORE (TBS) Radiology Routine Encounter for screening for osteoporosis Asymptomatic postmenopausal status 1 Occurrences starting 09/28/2023 until 10/27/2024 [facility] Comment on above: 1 Occurrences starting 09/28/2023 until 10/27/2024 BD DXA TRABECULAR JASSI NE SCORE (TBS) BD DXA TRABECULAR BONE SCORE (TBS) Radiology Routine Encounter for screening for osteoporosis Asymptomatic postmenopausal status 10/01/2023 8:08 AM EDT [facility] CYSTOSCOPY WHI CYSTOSCOPY WHI P rocedures Routine JEMIMA (stress urinary incontinence, female) 1 Occurrences starting 02/05/2024 [facility] Work Phone: Comment on above: 1 Occurrences starting 02/05/2024 End: 02-16-2026 DBT Breast - bilateral screening TAYLOR SCREENING W AQUILES Radiology Routine Encounter for screening mammogram for breast cancer 1 Occurrences starting 01/18/2025 until 02/16/2026 [facility] Work Phone: Comment on above: 1 Occurrences starting 01/18/2025 until 02/16/2026 End: 10-27-2024 DXA Skeletal system.axial Views for bone density DXA-AXIAL SKELETON Radiology Routine Encounter for screening for osteoporosis Asymptomatic postmenopausal status 1 Occurrences starting 09/28/2023 until 10/27/2024 [facility] Comment on above: 1 Occurrences starting 09/28/2023 until 10/27/2024 DXA Skeletal system.axial Views for bone density DXA-AXIAL SKELETON Radiology Routine Encounter for screening for osteoporosis Asymptomatic postmenopausal status 10/01/2023 8:[address] [facility] Work Phone: Gastrin [Mass/volume ] in Serum or Plasma [facility] End: 03-08-2023 TAYLOR SCREENING W AQUILES TAYLOR SCREENING W AQUILES Radiology Routine Encounter for screening mammogram for breast cancer Dense breast tissue 1 Occurrences starting 02/06/2022 until 03/08/2023 [facility] Work Phone: Comment on above: 1 Occurrences starting 02/06/2022 until 03/08/2023 End: 04-02-2024 TAYLOR SCREENING W AQUILES TAYLOR SCREENING W AQUILES Radiology Routine Encounter for screening mammogram for breast cancer 1 Occurrences starting 03/04/2023 until 04/02/2024 [facility] Work Phone: Comment on above: 1 Occurrences starting 03/04/2023 until 04/02/2024 MRI of small intestine [facility] Patient Education ED Rib Fracture [facility] Work Phone: Patient referral [facility] Work Phone: Puncture procedure [facility] US Abdomen limited [facility] Vitamin B12 measurement [facility] XR Abdomen Single view [facility] End: 04-03-2024 XR FOOT GENERAL 3V AP/LAT/OBL RIGHT XR FOOT GENERAL 3V AP/LAT/OBL RIGHT Radiology Routine Right foot pain 1 Occurrences starting 03/05/2023 until 04/03/2024 [facility] Work Phone: Comment on above: 1 Occurrences starting 03/05/2023 until 04/03/2024 XR FOOT GENERAL 3V AP/LAT/OBL RIGHT XR FOOT GENERAL 3V AP/LAT/OBL RIGHT Radiology Routine Right foot pain 03/05/2023 9:[address] [facility] Work Phone: End: 04-03-2024 XR TOE AP/LAT/OBL RIGHT XR TOE AP/LAT/OBL RIGHT Radiology Routine Toe pain, right 1 Occurrences starting 03/05/2023 until 04/03/2024 [facility] Work Phone: Comment on above: 1 Occurrences starting 03/05/2023 until 04/03/2024 [facility] Immunizations Immunization Date Immunization Notes Care Provider Cecil aiken 02-16-2024 influenza virus vacc ine, unspecified formulation Tanya Plascencia MA [facility] 03-05-2023 influenza (HD-IIV4) vaccine, age 65+ yr, high dose, quadrivalent, PF (FLUZONE HIGH-DOSE) Christina Martin ELECTROCHEMIST.IMMIGRATION CONSULTANT Work Phone: [facility] 03-05-2023 influenza virus vacc ine, unspecified formulation Michael Manzanares MD Work Phone: [facility] 03-18-2022 pneumococcal polysaccharide vaccine, 23 valent Christina Martin ELECTROCHEMIST.IMMIGRATION CONSULTANT Work Phone: [facility] Work Phone: 08-24-2020 zoster vaccine recombinant Christina Martin ELECTROCHEMIST.IMMIGRATION CONSULTANT Work Phone: [facility] 07-12-2020 COVID-19 vaccine, fu ll dose (MODERNA) Murphy Cuevas MD Work Phone: [facility] Work Phone: 06-15-2020 COVID-19 vaccine, fu ll dose (MODERNA) Murphy Cuevas MD Work Phone: [facility] Work Phone: 04-10-2020 zoster vaccine recombinant Murphy Cuevas MD Work Phone: [facility] Work Phone: 05-22-2018 influenza, high dose seasonal, preservative-free Murphy Cuevas MD Work Phone: [facility] 05-22-2018 pneumococcal conjuga te vaccine, 13 valent Murphy Cuevas MD Work Phone: [facility] 03-20-2009 novel influenza-H1N1 -09, preservative-free, injectable Murphy Cuevas MD Work Phone: [facility] Work Phone: 05-03-2004 hepatitis B vaccine, adult dosage Murphy Cuevas MD Work Phone: [facility] Work Phone: 11-24-2003 hepatitis B vaccine, adult dosage Murphy Cuevas MD Work Phone: [facility] Work Phone: 10-23-2003 hepatitis B vaccine, adult dosage Murphy Cuevas MD Work Phone: [facility] Work Phone: Payers Date Payer Category Payer Self-pay 2021 Unknown [id number] 2021 Medicare UHC AARP MEDICAR E [facility] AAR MEDICARE O [id number] 2021-Present [phone] [place] [id number] O [id number] 2020 Private Health Insurance [id number] 2017 Medicare [id number] 2017 Medicare [id number] Unknown [id number] Unknown [id number] [id number]. 462 Unknown [id number] 2.840.1.557381.3.579.2. 462 Unknown [id number] 2.840.1.409511.3.579.2. 462 Unknown [id number] 2.840.1.820830.3.579.2. 462 Unknown [id number] 2.840.1.154227.3.579.2. 462 Unknown [id number] 2.840.1.389708.3.579.2. 462 Unknown [id number] 2.840.1.516498.3.579.2. 462 Unknown [id number] 2.840.1.360380.3.579.2. 462 Unknown [id number] 2.16840.1.048762.3.579.2. 462 Unknown [id number] 2.16840.1.265742.3.579.2. 462 Unknown [id number] 2.16840.1.806960.3.579.2. 462 Unknown [id number] 2.16840.1.383068.3.579.2. 462 Unknown [id number] 2.16840.1.091931.3.579.2. 462 Unknown [id number] 2.16840.1.184856.3.579.2. 462 Unknown [id number] 2.16840.1.777749.3.579.2. 462 Unknown [id number] 2.16840.1.876852.3.579.2. 462 Unknown [id number] 2.16840.1.446666.3.579.2. 462 Unknown [id number] 2.840.1.577512.3.579.2. 462 Unknown [id number] 2.16840.1.080558.3.579.2. 462 Unknown [id number] 2.840.1.774729.3.579.2. 462 Unknown [id number] 2.840.1.635642.3.579.2. 462 Unknown [id number] 2.0.1.349482.3.579.2. 462 Social History Date Type Detail Facility Start: 07-02-2018 End: 12-29-2024 Tobacco smoking status NHIS Ex-smoker [facility] Start: 05-18-1973 End: 05-18-1984 History of tobacco use Current smoker [facility] Start: 05-18-1973 End: 05-18-1984 History of tobacco use Cigarette Smoker [facility] Start: 06-18-2021 End: 01-04-2025 Alcohol intake Current drinker of alcohol (finding) [facility] Start: 06-18-2021 End: 03-06-2023 Alcohol intake [facility] Start: 03-18-2021 History SDOH Alcohol Frequency 5 [facility] Start: 03-18-2021 History SDOH Alcohol Std Drinks 1 [facility] Start: 03-18-2021 History SDOH Alcohol Binge 2 [facility] Start: 08-23-2020 History SDOH Alcohol Comment wine 5-6 days/week [facility] Start: 03-18-2021 History SDOH Social Connections Meetings 98 [facility] Start: 03-18-2021 History SDOH Social Connections Living 3 [facility] Start: 03-18-2021 History SDOH Physica l Activity MPS 6 [facility] Start: 1950 Sex Assigned At Female C [facility] Start: 07-02-2018 End: 02-22-2024 Tobacco use and exposure Smokeless tobacco non-user [facility] Start: 02-16-2021 End: 02-06-2022 Exposure to SARS-CoV-2 (event) Not sure [facility] Start: 02-21-2022 End: 08-06-2023 Tobacco smoking status NHIS Unknown if ever smoked [facility] Start: 09-01-2022 End: 03-06-2023 Social connection and isolation panel [facility] Start: 04-18-2012 How often do you att end roman catholic or rastafari services? Patient refused [facility] Do you belong to any clubs or organizations such as roman catholic groups, unions, fraternal or athletic groups, or school groups? No [facility] Are you now , , , , never or living with a partner? [facility] How often to you hav e a drink containing alcohol? 2-3 time sa week [facility] How many standard drinks containing alcohol do you have on a typical day? 1 or 2 [facility] How often do you hav e 6 or more drinks on 1 occasion? Never [facility] Do you feel stress - tense, restless, nervous, or anxious, or unable to sleep at night because your mind is troubled all the time - these days [OSQ] Not at all [facility] (I/We) worried amado er (my/our) food would run out before (I/we) got money to buy more. Never true [facility] Start: 09-01-2022 Alcohol Comment 1-2 glasses a few times a week [facility] Start: 12-18-2019 Gender identity Identifies as female gender (finding) [facility] Start: 12-18-2019 Sexual orientation Heterosexual (martin little) [facility] How often to you hav e a drink containing alcohol? 4 or more times a week [facility] How often do you hav e 6 or more drinks on 1 occasion? Less than monthly [facility] Do you feel stress - tense, restless, nervous, or anxious, or unable to sleep at night because your mind is troubled all the time - these days [OSQ] Only a little [facility] NEGATED: Highlighted row [facility] Goals Date Patient Goal Desired Activity /State Functional Status Date Assessment Result Facility 01-04-2025 Total score [AUDIT-C] 3 01/05/20 9:01 AM EDT Christina Martin APRN.IMMIGRATION CONSULTANT [facility] 05-22-2018 Are you deaf, or do you have serious difficulty hearing No 05/22/2018 10:02 AM Khris Quintana MD No [facility] 05-22-2018 Are you blind, or do you have serious difficulty seeing, even when wearing glasses No 05/22/2018 10:02 AM Khris Quintana MD No [facility] 05-22-2018 Do you have serious difficulty walking or climbing stairs No 05/22/2018 10:02 AM Khris Quintana MD No [facility] 05-22-2018 Do you have difficul ty dressing or bathing No 05/22/2018 10:02 AM Khris Quintana MD No [facility] 05-22-2018 Because of a physica l, mental, or emotional condition, do you have difficulty doing errands alone such as visiting a physician's office or shopping No 05/22/2018 10:02 AM Khris Quintana MD No [facility] Mental Status Date Assessment Result Facility 11-08-2024 Cognitive function Touch/Shaking [facility] Work Phone: 04-23-2022 Cognitive function Voice/Name [facility] Work Phone: 05-22-2018 Because of a physica l, mental, or emotional condition, do you have serious difficulty concentrating, remembering, or making decisions No 05/22/2018 10:02 AM Khris Quintana MD No [facility] Clinical Notes 03-18-2021 to 01-18-2025 Telephone Encounter - Murphy Cuevas MD - 01/18/2025 3:12 PM EDTTelephone Encounter - Murphy Cuevas MD - 01/18/2025 3:12 PM EDTTelephone Encounter - Eden Hooks RN - 01/17/2025 1:16 PM EDT Note Date & Type Note Facility 01-18-2025 Telephone encounter Note Filed as requested Regards, Murphy Cuevas MD' [facility] 01-18-2025 Miscellaneous Notes Filed as requested Regards, Murphy Cuevas MD' Pt called in and was asking if provider could put in an order for her mammogram. Please call and let Pt know once the order is in. Eden Hooks RN documented in this encounter [facility] 01-17-2025 Telephone encounter Note Pt called in and was asking if provider could put in an order for her mammogram. Please call and let Pt know once the order is in. Eden Hooks RN [facility] 01-04-2025 Christina Armas APRN.RAS - 01/04/2025 9:03 AM EDT - Stop [...] review all the medicines you take, even rwvb-rpt-ndwucec medicines. As you get older, the way [...] certain medical conditions. documented in this encounter [facility] 01-04-2025 History of Presen t illness Narrative [...] 80 Resp 16 Ht 155.4 cm (5' 1.18") Wt 46.7 kg (103 lb) SpO2 96% [...] medicare wellness and follow up. Recording using [employer] software for draft documentation of the visit was discussed with the patient/authorized representative government relations; all questions welcomed and answered. Patient/authorized representative government relations agreed to proceed Montez's Esophagus: - Diagnosed [...] 80 Resp 16 Ht 155.4 cm (5' 1.18") Wt 46.7 kg (103 lb) SpO2 96% [...] Drug use: No documented in this encounter [facility] 01-04-2025 Note HNO ID: [id number] Author: CHRISTINA MARTIN APRN.CNP Service: ? Author [...] 80 Resp 16 Ht 155.4 cm (5' 1.18") Wt 46.7 kg (103 lb) SpO2 96% [...] medicare wellness and follow up. Recording using [employer] software for draft documentation of the visit was discussed with the patient/authorized representative government relations; all questions welcomed and answered. Patient/authorized representative government relations agreed to proceed Montez's Esophagus: - Diagnosed [...] gram or s (more content not included)... [facility] 01-03-2025 Note HNO ID: [id number] Author: TANYA PLASCENCIA MA Service: ? Author Type: Settlement Clerk Type: Progress Notes Filed: 01/03/2025 10:39 Note Text: POPULATION HEALTH NAVIGATION OUTREACH Action/FYI Patient returned My Chart and appointment already scheduled for Medicare Wellness. Reason for Outreach Returned Call/MyChart Patient Contacted: Spoke to patient/parent/or legal guardian Patient identified by name and date of : Yes Returned call/MyChart actions taken: [employer] message sent Navigation Signature: Tanya Plascencia MA January 03, 2025 10:38 AM [facility] 01-02-2025 Note HNO ID: [id number] Author: TANYA PLASCENCIA MA Service: ? Author Type: Settlement Clerk Type: Progress Notes Filed: 01/02/2025 15:09 Note [...] or unnecessary to reach patient: Left message [employer] message sent Navigation Signature: Tanya Plascencia MA January 02, 2025 3:09 PM [facility] 01-02-2025 History of Presen t illness Narrative [...] or unnecessary to reach patient: Left message [employer] message sent Navigation Signature: Tanya Plascencia MA January 02, 2025 3:09 PM documented in this encounter [facility] 01-02-2025 Note Patient Outreach (NE TNAV) PHYLLIS SANCHEZ ([id number]) 1950 F Date Time Provider Department 01/02/25 [...] or unnecessary to reach patient: Left message [employer] message sent Navigation Signature: Tanya Plascencia MA [...] Visit: Population Health Navigation Outreach [3910] Cmt: Uriah/Workbench/ACO Prescriptions as of 01/03/2025 - estradiol (ESTRACE) [...] Encounter Status:Closed by TANYA PLASCENCIA on 01/02/25 [facility] 12-29-2024 Progress note Note Date/Time December 29, 2024 1:43pm [facility] [address] [place] [address] OFFICE VISIT Date of Service: 12/29/24 MR#: [id number] Acct: [id number] Name: PHYLLIS SANCHEZ Rep #: [id number] : 1950 Provider: NANO Pinon Age/Sex: 74/F [facility]: [facility] Status: Signed Intake Vital Signs 12/15/24 [...] Chief Complaint: bowel changes and abdominal discomfort Analysis Engineer Required: No Accompanied by: Self Is patient in pain?: No Allergies No Known Allergies Allergy (Verified 12/29/24 13:04) Medications ?Medication ?Instructions ?Recorded ?Confirmed ?Type calcium carbonate (Calcium 500) 500 mg PO DAILY 12/29/24 History mecobalamin (vitamin B12) 5,000 5,000 mcg PO DAILY 09/0612/29/24 History mcg disintegrating tablet vitamins A,C,K-mnjh-aaxtir 4,296 1 cap PO BID 12/19/21 12/29/24 [...] signed by Melba MCGILL> Date _ Melba Castilloignbrenda Signature: Date (if applicable) CC: ~ [facility] Work Phone: [phone]) 269-360108-14-2025 Progress [facility] [address] [address] OFFICE VISIT Date of Service: 12/29/24 MR#: [id number] Acct: [id number] Name: PHYLLIS SANCHEZ Rep #: [id number] : 1950 Provider: NANO Pinon Age/Sex: 74/F Location[facility] Status: Signed Intake Vital Signs 12/15/24 [...] Chief Complaint: bowel changes and abdominal discomfort Analysis Engineer Required: No Accompanied by: Self Is patient in pain?: No Allergies No Known Allergies Allergy (Verified 12/29/24 13:04) Medications ?Medication ?Instructions ?Recorded ?Confirmed ?Type calcium carbonate (Calcium 500) 500 mg PO DAILY 12/29/24 History mecobalamin (vitamin B12) 5,000 5,000 mcg PO DAILY 09/0612/29/24 History mcg disintegrating tablet vitamins A,C,N-krsz-sosqyu 4,296 1 cap PO BID 12/19/21 12/29/24 [...] Smoking Status: Former smoker 12/29/24 1343 waqas PRINTER TECHNICIAN-C> Date _ Melba Pinon PRINTER TECHNICIAN-C Cosigner Signature: Date (if applicable) CC: ~ [facility]06-24-2025 History and physical note Author Dhiraj King [facility] Note Date/Time November 08, 2024 1:20 pm [facility] Medical Records Department [address] [place] [address] History & Physical Exam 11/08/24 1319 MR#: [id number] Acct: [id number] Name: DANIELPHYLLIS Bowling Rep #:[id number] : 1950 73 From: Dhiraj King DO PCP: NANO BURLESON Status:[facility] Location: [address] - General General Date of Admission: 11/08/24 [...] leakage 2023 - UroGYN Dr. Manzanares - [facility] - she reports about 10 days ago [...] HB, indigestion, N/V - denies any dysphagia [facility] Medical History Post-menopausal Arthritis PONV (postoperative nausea [...] DAILY 09/0604/22/22 History mcg disintegrating tablet vitamins A,C,N-lrvf-jdqzhh 4,296 1 cap PO BID 12/19/21 04/22/22 [...] CC: NANO MARTIN; Dhiraj King DO~ Signed [facility] Work Phone: 1(791) 251-784206-24-2025 Consult note [facility] Medical Records Department [address] [place] [address] Anesthesia Postop Eval I 11/08/24 1500 MR#: [id number] Acct: [id number] Name: PHYLLIS SANCHEZ Rep #:[id number] : 1950 73 From: David Jeffries PCP: NANO BURLESON Status:[facility] Y Race: C Location: [place] [address] Anesthesia: Postop Eval I Current Vital Signs [...] David Valadez Signature: Date CC: ~ Signed [facility]06-24-2025 Procedure note [facility] Medical Records Department [address] [place] [address] EGD Report MR#: [id number] Acct: [id number] Name: PHYLLIS SANCHEZ Rep #:[id number] : 1950 73 From: Dhiraj King DO PCP: NANO BURLESON Status:[facility] Patient Name: Phyllis Sanchez Procedure Date: 11/08/2024 [...] pathology results. Procedure Code(s): --- Professional --- 27424, Small intestinal endoscopy, enteroscopy beyond second portion of duodenum, not including ileum; with biopsy, single or multiple CPT copyright 2021 [employer]. All rights reserved. The codes documented in this report are preliminary and upon heel dipper review may be revised to meet current compliance requirements. Dhiraj King DO 11/08/2024 2:57:35 PM This report has been signed electronically. Number of Addenda: 0 Note Initiated On: 11/08/2024 2:38 PM 11/08/241456 Date _ Dhiraj Vaughn Signature: Date (if indicated) CC: NANO MARTIN; Dhiraj King DO ~ Date Dictated: 11/08/24 1438 Date Transcribed: Rn Relief Charge: JOHNY Signed [facility]06-24-2025 Procedure note [facility] Medical Records Department [address] [facility] [place] [address] Operative Report - CC Letter MR#: [id number] Acct: [id number] Name: DANIELPHYLLIS BowlingILYA Rep #:[id number] : 1950 73 From: Dhiraj King DO PCP: NANO BURLESON Status:[facility] 11/08/2024 Nano Burleson Re : Upper GI [...] PM This report has been signed electronically. 11/08/241456 Date _ Dhiraj Friend DO Cosigner Signature: Date (if indicated) CC: PRINTER TECHNICIAN-C CHRISTINA MARTIN; Dhiraj Friend, DO ~ Date Dictated: 11/08/24 1438 Date Transcribed: Rn Relief Charge: RF Signed [facility]06-24-2025 Consult note [facility] Medical Records Department [address] [place] [address] Pre-Anesthesia Evaluation 11/08/24 1413 MR#: [id number] Acct: [id number] Name: PHYLLIS SANCHEZ Rep #:[id number] : 1950 73 From: Rodolfo Huffman MD PCP: NANO BURLESON Status:[facility] Y Race: C Location: [place] [address] ASA Classification* ASA Classification ASA Classification: 2 [...] Procedure(s): EGD Anesthesia History Anesthesia History - parallel computing software engineer: Anesthesia History - parallel computing software engineer Hx Hospitalization No 11/03/24 13:18 Any Problems [...] sips of water?: No PONV PONV - parallel computing software engineer: PONV - parallel computing software engineer Female Yes 11/03/24 13:18 HX of Motion [...] 11/08/24 13:42 Respiratory Assessment Respiratory Assessment - parallel computing software engineer: Respiratory Tract Infection Hx - parallel computing software engineer Hx Respiratory Tract Infection No 11/03/24 13:18 STOP Sleep Apnea STOP Sleep Apnea - parallel computing software engineer: STOP Sleep Apnea - parallel computing software engineer Hx Hypertension No 11/03/24 13:18 Hx Sleep [...] Tobacco Use History Tobacco Use History - parallel computing software engineer: Tobacco Use History - parallel computing software engineer Tobacco Use Smoking Status Former smoker 11/03/24 13:18 Hx Tobacco Use Yes 11/03/24 13:18 Years Smoking Packs Smoked per Day Smoking Cessation Date was No - quit smoking greater 11/03/24 13:18 within the last 15 years than 15 years ago Hx Smoking Cessation Date 05/18/79 11/03/24 13:18 Hx Smoking Cessation Counseling Hematologic Medial History Hematologic Hx - parallel computing software engineer: Hematologic Medical Hx - mental health professional Hx of Blood Transfusion No 11/03/24 13:18 [...] confused, unrespo /Reproduction History /Reproductive History - parallel computing software engineer: /Reproductive Hx- parallel computing software engineer Hx Now Gestational Age (in weeks): EDC: [...] DAILY 09/0604/22/22 History mcg disintegrating tablet vitamins A,C,Z-qncj-svrseu 4,296 1 cap PO BID 12/19/21 04/22/22 [...] MD Cosigner Signature: Date CC: ~ Signed [facility]06-24-[address] [facility] Medical Records Department [address] [place] [address] History & Physical Exam 11/08/24 1319 MR#: [id number] Acct: [id number] Name: PHYLLIS SANCHEZ Rep #:[id number] : 1950 73 From: Dhiraj Friend DO PCP: CHRISTINA MARTIN PRINTER TECHNICIAN-C Status:[facility] Location: [place] [address] HPI - General General Date of Admission: [...] leakage 2023 - UroGYN Dr. Manzanares - [facility] - she reports about 10 days ago [...] HB, indigestion, N/V - denies any dysphagia [facility] Medical History Post-menopausal Arthritis PONV (postoperative nausea [...] DAILY 09/0604/22/22 History mcg disintegrating tablet vitamins A,C,S-swgt-vqxbfx 4,296 1 cap PO BID 12/19/21 04/22/22 [...] 11/08/24 1320 Cosigner Signature (if applicable): CC: MEIRC CHRISTINA MARTIN; Dhiraj King, ~ Signed [facility]06-24-2025 [facility] Medical Records Department [address] [place] [address] History Physical Exam 11/08/24 1319 MR#: [id number] Acct: [id number] Name: PHYLLIS SANCHEZ Rep #: [id number] : 1950 73 From: Dhiraj King DO PCP: NANO BURLESON Status:[facility] Location: [place] [address] HPI - General General Date of Admission: [...] leakage 2023 - UroGYN Dr. Manzanares - [facility] - she reports about 10 days ago [...] HB, indigestion, N/V - denies any dysphagia [facility] Medical History Post-menopausal Arthritis PONV (postoperative nausea [...] DAILY 12/19/21 History mcg disintegrating tablet vitamins A,C,C-aizt-kawqey 4,296 1 cap PO BID 12/19/21 04/22/22 [...] or weight loss Gastrointe (more content not included)...[facility]06-24-2025 History of Present illness Narrative* Holman, Dung Yu APRN.IMMIGRATION CONSULTANT - 11/08/2024 8:30 AM EDT Female Pelvic [...] the PFSH obtained by others. Dung Holman APRN.IMMIGRATION CONSULTANT Powerhouse Engineer offered: Patient declines. SENSITIVE EXAM: The sensitive examination was discussed with the Patient or Patient's Authorized Bus Operator. As applicable, any other physician, advance practice provider, medical student, or other health professional student that will be observing or involved in the sensitive examination for educational or training purposes was discussed with the Patient or Authorized Bus Operator. The Patient or Authorized Bus Operator has agreed to proceed with the sensitive [...] which included preparing to see the patient, lmig-ni-xpko patient care, completing clinical documentation, performing a medically appropriate examination, and counseling and educating the patient/family/caregiver. Dung Holman APRN.CNP documented in this encounterKindred Hospital [facility]06-24-2025 NoteHNO ID: [id number] Author: DUNG HOLMAN APRN.CNP Service: ? Author Type: Nurse Practitioner [...] the PFSH obtained by others. Dung Holman APRN.CNP Powerhouse Engineer offered: Patient declines. SENSITIVE EXAM: The sensitive examination was discussed with the Patient or Patient's Authorized Bus Operator. As applicable, any other physician, advance practice provider, medical student, or other health professional student that will be observing or involved in the sensitive examination for educational or training purposes was discussed with the Patient or Authorized Bus Operator. The Patient or Authorized Bus Operator has agreed to proceed with the sensitive [...] which included preparing to see the patient, uffd-qi-pgor patient care, completing clinical documentation, performing a medically appropriate examination, and counseling and educating the patient/family/caregiver. Dung Holman APRN.[facility]06-09-2025 Evaluation note* Diagnosis Onset Date Resolution [...] February 022024 8:57am Dyssynergic defecation acute Se pt2024 8:57am Periumbilical pain acute 2024 8:57am [facility] Work Phone: 1(956) 634-178106-01-2025 Radiology Diagnostic study note [facility] Imaging Services [address] [place], [place] [address] Abdomen/Pelvis WITH Contrast MR#: [id number] Acct: [id number] Name: PHYLLIS SANCHEZ Rep #: [id number] : 1950 F 73 From: Hiram Lawler MD PCP: NANO BURLESON Status: REG CLI Study:Abdomen/Pelvis WITH Contrast Date of Ex am: 10/14/24 Exam# [id number] Ordering Dr: Melba Pinon PROCEDURE: ABDOMEN/PELVIS WITH CONTRAST 10/14/2024 REASON FOR [...] to underdistention or gastritis. Constipation. Reading Location: [id number] CC: NANO MARTIN; NANO Pinon ~ Rn Relief Charge: Signed [facility]04-29-2025 Evaluation note* Diagnosis Onset Date Resolution Status Admit Date Abdominal pain acute August 8:21am Constipation acute September 13, 2024 8:21am Abdominal pain acute October 24, 2024 8:27am Abnormal CT scan, bladder acute October 24, 2024 8:27am Constipation acute October 24 8:27am Abdominal pain acute November 08, 2024 1:05pm [facility] Work Phone: [phone]) 750-331204-29-2025 Evaluation note* Diagnosis Onset Date Resolution Status Admit Date Abdominal pain acute August 8:21am Constipation acute September 13, 2024 8:21am Abdominal pain acute October 24, 2024 8:27am Abnormal CT scan, bladder acute October 24, 2024 8:27am Constipation acute October 24 8:27am Abdominal pain acute November 08, 2024 1:05pm Abdominal pain acute December 15, 2024 8:21am Atrophic gastritis acute November 172024 8:21am [facility] Work Phone: 1(643) 791-873704-29-2025 Evaluation note* Diagnosis Onset Date Resolution Status [...] 8:21am Barretts esophagus acute November 172024 8:21am [facility] Work Phone: 1(532) 116-984604-29-2025 Evaluation note* Diagnosis Onset Date Resolution Status [...] abdominal pain acute December 29, 2024 12:54pm [facility] Work Phone: [phone] Evaluation note* Diagnosis Onset Date Resolution Status Admit Date Abdominal pain acute June 182024 12:52pm Constipation acute June 12:52pm Abdominal pain acute August 8:21am Constipation acute September 13, 2024 8:21am [facility] Work Phone: 1(253) 419-548001-15-2025 [facility] Medical Records Department [address] [place] [address] History Physical Exam 06/01/24 0656 MR#: [id number] Acct: [id number] Name: PHYLLIS SANCHEZ Rep #: [id number] : 1950 73 From: Dhiraj Friend DO PCP: CHRISTINA MARTIN PRINTER TECHNICIAN-C Status:[facility] Location: [place] [address] HPI - General General Date of Admission: [...] 12/19/21 04/22/22 History mcg disintegrating tablet vitamins A,C,Z-vkfu-axyfhk 4,296 1 cap PO BID 12/19/21 04/22/22 [...] (1) Constipation: QUALIFIERS: Constipation (more content not included)...[facility]11-14-2024 NoteHNO ID: [id number] Author: CHRISTINA MARTIN APRN.IMMIGRATION CONSULTANT Service: ? Author Type: Nurse Practitioner Type: [...] Discontinued DATA REVIEWED: Most recent labs from [facility] ASSESSMENT/PLAN: 1. Elevated blood pressure reading [...] Potential red flag sympt (more content not included)...[facility]11-14-2024 History of Present illness Narrative* Christina Martin APRN.RAS - 03/31/2024 7:21 AM EST CC: Patient [...] Discontinued DATA REVIEWED: Most recent labs from [facility] ASSESSMENT/PLAN: 1. Elevated blood pressure reading [...] plan. Christina Martin APRN.CNP documented in this encounterKindred [facility]11-06-2024 Telephone encounter Note * Telephone Encounter - [...] Tomas RN March 23, 2024 3:04 PM [facility]11-06-20[facility] Miscellaneous Notes* Telephone Encounter - Elizabeth Tomas [...] 23, 2024 3:04 PM documented in this encounterKindred Hospital Lima10-22-2024 History of Present illness Narrative* Waleska Kelly [...] PATIENT PRESENTS WITH AN IMPLANTABLE OR ATTACHED CRACKER SPRAYER: No RADIOLOGY DEPARTMENT: Mammography PERIPHERAL IV DATA: Not applicable SIGNED BY: Silvestre Nicholas March 08, 2024 8:15 AM documented in this encounterKindred Hospital Lima10-22-2024 NoteHNO ID: [id number] Author: WALESKA KELLY Mammo Tech Service: ? Author Type: Academic Manager Type: Progress Notes Filed: 03/08/2024 08:15 Note [...] PATIENT PRESENTS WITH AN IMPLANTABLE OR ATTACHED CRACKER SPRAYER: No RADIOLOGY DEPARTMENT: Mammography PERIPHERAL IV DATA: Not applicable SIGNED BY: Waleska Kelly [employer] March 08, 2024 8:15 [facility]10-07-2024 NoteHNO ID: [id number] Author: MICHAEL MANZANARES MD Service: ? Author [...] There were no complications. Complications: none LOT: [id number] Exp: 2026-04-16 Procedure Summary: Patient tolerated procedure well. Medications: Prophylactic antibiotics Plan: Follow up 1 month for postop check via nurse phone call. If she's doing well plan for 1y postop in October 2024. If not can follow up for another visit. Michael Manzanares [facility]10-07-2024 History of Present illness Narrative* Michael Manzanares [...] There were no complications. Complications: none LOT: [id number] Exp: 2026-04-16 Procedure Summary: Patient tolerated procedure well. Medications: Prophylactic antibiotics Plan: Follow up 1 month for postop check via nurse phone call. If she's doing well plan for 1y postop in October 2024. If not can follow up for another visit. Michael Manzanares MD documented in this encounterKindred Hospital [facility]ima09-20-2024 Telephone encounter Note * Telephone Encounter - Elizabeth Tomas RN - 02/05/2024 3:39 PM EDT Bulkamid referral received -- 1st injection. Entered auth. Will monitor status. PPX antibiotics: Will need Blood thinners: None LV: 02/04 with Glenna JEMIMA - discussed bulkamid in the office [...] Tomas RN February 05, 2024 3:41 PM [facility]-20-[facility] Miscellaneous Notes* Telephone Encounter - Elizabeth Tomas [...] 05, 2024 3:41 PM documented in this encounterKindred Hospital [facility]ima09-20-2024 History of Present illness Narrative* Michael Manzanares [...] discussed with the Patient or Patient's Authorized Bus Operator. Asapplicable, any other physician, advance practice provider, medical student, or other health professional student that will be observing or involved in the sensitive examination for educational or training purposes was discussed with the Patient or Authorized Bus Operator. The Patient or Authorized Bus Operator has agreed to proceed with the sensitive examination. (Sensitive examination includes inspection and/or palpation of the breasts, pelvis, prostate and anorectal regions) Powerhouse Engineer declined. OBJECTIVE: BP 130/82 Ht 154.9 cm (5' 1") Wt 45.4 kg (100 lb) BMI 18.89 [...] Bulkamid Michael Manzanares MD documented in this encounterKindred Hospital Lima09-20-2024 NoteHNO ID: [id number] Author: MICHAEL MANZANARES MD Service: ? Author [...] discussed with the Patient or Patient's Authorized Bus Operator. As applicable, any other physician, advance practice provider, medical student, or other health professional student that will be observing or involved in the sensitive examination for educational or training purposes was discussed with the Patient or Authorized Bus Operator. The Patient or Authorized Bus Operator has agreed to proceed with the sensitive examination. (Sensitive examination includes inspection and/or palpation of the breasts, pelvis, prostate and anorectal regions) Powerhouse Engineer declined. OBJECTIVE: BP 130/82 Ht 154.9 cm (5' 1") Wt 45.4 kg (100 lb) BMI 18.89 [...] the procedure. F/u for Bulkamid Michael Manzanares [facility]09-12-2024 Telephone encounter Note* Telephone Encounter - Jolanta [...] Navarrete RN January 28, 2024 9:17 AM [facility]-12-20[facility] Miscellaneous Notes* Telephone Encounter - Jolanta Navarrete [...] 28, 2024 9:17 AM documented in this encounterKindred Hospital [facility]ima07-17-2024 Instructions* Patient Instructions* Michael Manzanares MD - 12/02/2023 10:53 AM EDT If you still have significant leaking, before next visit please perform pyridium pad test: Get AZO (pyridium, aka phenozpyradine) tablets at [facility] Take 2 tabs Over the course of several hours (6-12 hours) - if there is orange on the pad, let me know documented in this encounterKindred Hospital Lima07-17-2024 History of Present illness Narrative* Michael Manzanares [...] you received about pain medications helpful? Yes Powerhouse Engineer offered, exam chaperoned by Tanya Kamara RN [...] exams. Michael Manzanares MD documented in this encounterKindred Hospital [facility]ima06-14-2024 History of Present illness Narrative* Jaye Randolph [...] 10/30/2023 Jaye Randolph RN documented in this encounterKindred Hospital [facility]ima06-11-2024 NoteHNO ID: [id number] Author: ZACHARY NGUYEN MD Service: ? Author [...] Number: [id number] Expiration date: 2025-02-24 [facility] NoteHNO ID: [id number] Author: DIANE REYES APRN.VENEER PRESS OPERATOR Service: Anesthesiology Author Type: Nurse Senior Compensation Consultant Type: Anesthesia Procedure Notes Filed: 10/27/2023 08:55 [...] October 27, 2023 TIME: 8:54 AM CSN: [id number] NoteHNO ID: [id number] Author: DIANE REYES APRN.VENEER PRESS OPERATOR Service: Anesthesiology Author Type: Nurse Senior Compensation Consultant Type: Anesthesia Procedure Notes Filed: 10/27/2023 08:14 Note Text: ANESTHESIOLOGY PROCEDURE NOTE Airway General Information Procedure Start Time/Medication Administration: 10/27/2023 7:45 AM Procedure End Time: 10/27/2023 7:48 AM Patient location during procedure: OR Timeout Performed Pre-procedure: timeout performed Patient identity confirmed: arm band and patient Staffing VENEER PRESS OPERATOR: Diane Reyes APRN.VENEER PRESS OPERATOR Performed by: ALVIN Indications and Patient Condition Indications for airway management: anesthesia Preoxygenated: yes anesthesia circuit Patient position: sniffing Method: sleep Difficult Mask: No Final Airway Details Final airway type: endotracheal airway Final Endotracheal Airway: ETT Cuffed: yes Successful intubation technique: video laryngoscopy Devices used: Duff Endotracheal tube insertion site: oral Blade size: #3 ETT size (mm): 6.5 Measured from: lips Measurement (cm): 20 Placement verified by: chest auscultation and capnometry Cormack-Lehane Classification: grade I - full view of glottis Number of attempts at approach: 1 Airway not difficult SIGNATURE: Diane Reyes APRN.VENEER PRESS OPERATOR PATIENT NAME: Phyllis Sanchez DATE: October 27, 2023 TIME: 8:14 AM CSN: [id number] Instructions* Patient Instructions* Maria Fernanda Miller APRN.IMMIGRATION CONSULTANT - 10/16/2023 1:09 PM EDT PATIENT PREOPERATIVE INSTRUCTIONS Michael Manzanares MD has scheduled you for your procedure at this surgery center: [facility]: [phone] -- [address] [place] [address]. Please read below carefully for your personalized [...] Procedures: - YOU MUST HAVE A RESPONSIBLE DROP PIT WORKER TAKE YOU HOME. A MACHINE MAINTENANCE TECHNICIAN OR RESEARCH COMPLIANCE SPECIALIST CANNOT BE MADE A RESPONSIBLE DROP PIT WORKER. - We recommend that a responsible person stays with you overnight to take care of you. - You cannot stay in a hotel alone after outpatient surgery. You will not be permitted to have yoursurgery, if you do not have someone to take care of you. Arrival Time for Surgery: -You will receive a call from [facility] the afternoon before surgery after 2:30 pm(or Thursday for Thursday surgery) for a scheduled arrival time. - If you have not heard by 4 pm, please contact [facility] at [phone]. Please be aware that emergency situations arise, which may delay or change your surgical time. If this happens, we will notify you as soon as possible and regret any inconvenience. If you already have an Advance Directive, please fax a copy to [phone] or email to for it to be [...] Maria Fernanda Miller APRN.CNP documented in this encounterKindred Hospital Lima05-31-2024 History and physical note * Maria Fernanda [...] large neck Non-male patient STOP-Bang Score: 1 [id number] Score: Age: 65-74 Sex: female CHF history: No Hypertension history: No Vascular disease history: No Diabetes history: No [id number] Score: ARISCAT Score: Age: 51-80 Preoperative SpO2: [...] and consent discussed: yes. Patient / Responsible Green Party agrees to proceed: yes Patient / [...] abdominal pain/bloating and was told she was "full of stool". She reports fecal incontinence of liquid or very soft gas/stool. She does take fiber supplements to help with her constipation. She denies vaginal dryness. She does use vaginal estrogen. She is sexually active. She reports pain with intercourse occasionally. She denies a strong family history of breast and ovarian cancer. 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 Neurological: Positive for: seizures (remote childhood, no issues since). Negative for: cerebral palsy, DOCTOR OF PHARMACY tumor, headaches, hemiplegia, multiple sclerosis, Parkinson's disease, peripheral neuropathy and strokes. Respiratory: Former smoker 1ppd/5 years, in her 20's. No history of current cough or dyspnea, or pneumonia in the past 6 weeks. No history of respiratory/pulmonary symptoms or problems. Cardiovascular: No history of HTN requiring medication, no history of angina, CHF, WA, cardiac surgery or stents. Denies rest pain, gangrene or revascularization/amputation for PVD. No history of cardiovascular symptoms or problems. GI: No history of GI symptoms or problems. No history of esophageal varices, recent ascites, or ETOH greater than 2 drinks per day. : See HPI. COAL PASSER: See HPI. Endocrine: No history of diabetes. [...] (Src) 98.4 (Temporal) Resp 14 Ht 5' .5" (1.54m) Wt 102 lb (46.3kg) SpO2 98% [...] within date range. No results found for: "HBA1C" No results found for this or any previous visit (from the past 8760 hour(s)). No results found for this or any previous visit (from the past 71604 hour(s)). Instructions Given to Patient: Instructions located in the after visit summary. Patient given verbal and written preop instructions and voices comprehension and compliance. SIGNATURE: Maria Fernanda Miller APRN.CNP PATIENT NAME: Phyllis Sanchez DATE: October 16, 2023 TIME: 1:06 PM PAGER/CONTACT #: [facility]05-31-2024 History and physical note* Maria Fernanda Miller [...] hx during her teens, no issues since [place] Activity Status Index: METS: Climb a flight [...] large neck Non-male patient STOP-Bang Score: 1 [id number] Score: Age: 65-74 Sex: female CHF history: No Hypertension history: No Vascular disease history: No Diabetes history: No [id number] Score: ARISCAT Score: Age: 51-80 Preoperative SpO2: [...] and consent discussed: yes. Patient / Responsible Green Party agrees to proceed: yes Patient / [...] has not tried a pessary. She reports EJMIMA with coughing, laughing, and sneezing with full [...] abdominal pain/bloating and was told she was "full of stool". She reports fecal incontinence of liquid or very soft gas/stool. She does take fiber supplements to help with her constipation. She denies vaginal dryness. She does use vaginal estrogen. She is sexually active. She reports pain with intercourse occasionally. She denies a strong family history of breast and ovarian cancer. 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 Neurological: Positive for: seizures (remote childhood, no issues since). Negative for: cerebral palsy, DOCTOR OF PHARMACY tumor, headaches, hemiplegia, multiple sclerosis, Parkinson's disease, peripheral neuropathy and strokes. Respiratory: Former smoker 1ppd/5 years, in her 20's. No history of current cough or dyspnea, or pneumonia in the past 6 weeks. No history of respiratory/pulmonary symptoms or problems. Cardiovascular: No history of HTN requiring medication, no history of angina, CHF, WA, cardiac surgery or stents. Denies rest pain, gangrene or revascularization/amputation for PVD. No history of cardiovascular symptoms or problems. GI: No history of GI symptoms or problems. No history of esophageal varices, recent ascites, or ETOH greater than 2 drinks per day. : See HPI. COAL PASSER: See HPI. Endocrine: No history of diabetes. [...] (Src) 98.4 (Temporal) Resp 14 Ht 5' .5" (1.54m) Wt 102 lb (46.3kg) SpO2 98% [...] within date range. No results found for: "HBA1C" No results found for this or any previous visit (from the past 8760 hour(s)). No results found for this or any previous visit (from the past 25871 hour(s)). Instructions Given to Patient: Instructions located in the after visit summary. Patient given verbal and written preop instructions and voices comprehension and compliance. SIGNATURE: Maria Fernanda Miller APRN.CNP PATIENT NAME: Phyllis Sanchez DATE: October 16, 2023 TIME: 1:06 PM PAGER/CONTACT #: documented [facility] History of Present illness Narrative* Lesia Steele E - 10/13/2023 1:00 PM EDT DATE OF SERVICE: 10/13/2023 PROBLEM: Phyllis Sanchez presents for pre-op teaching. PRE-OP DIAGNOSIS: uterovaginal prolapse, incomplete SCHEDULED SURGERY AND DATE: 10/27/23 at [facility]: Total vaginal hysterectomy Possible bilateral salpingo-oophorectomy [...] patient have an advanced directive: No Does [facility] have a copy of the patient's advanced [...] prescribed by anesthesia, internal medicine, surgeon, or PRINTER TECHNICIAN Stop NSAIDs, Aspirin (ASA), vitamins, herbal supplements, [...] or with a family member Directions to [facility] Parking/parking validation on the day prior to surgery Admission/check in (Report to [facility], W[facility] for surgery) Holding area Placement of [...] - IV pain medication after surgery, IV VACUUM CLEANER REPAIRER if ordered by MD, discharged home with [...] patient, if after hours patientinstructed to call information operator and ask for continuous pickling line pickler urogynecologist PAT program offered to patient: No Additional teaching as indicated by patient/family learning needs. PATIENT LEARNING EVALUATION & FOLLOW UP PLAN: Patient and/or family express understanding of upcoming surgery, pre-operative preparation, the operative process, and post-operative instructions. Follow up plan: Complete - No need for follow-up Patient has a post-op appointment scheduled: Yes Referral (recommentation): None Educator: Lesia Steele [facility] documented in this encounterKind[facility]05-28-[facility]24 Instructions* Patient Instructions* Lesia Steele - 10/13/2023 [...] Fish Oil, Flax Seed, Dino, Ginkgo, Ginseng, [place]'s Wort, Tumeric, and anti-inflammatory medications including Motrin, [...] [facility] TEAM At the [facility], we have a multidisciplinary team of caregivers that includes fellows, residents, nurse practitioners (diesel service technician), physician assistants (PAs), clinical nurse specialists (CNSs), nurses, medical assistants (MAs), patient care nursing assistants (PCNAs), social workers, medical case manager and many others. We all have different [...] SURGERY If you are having surgery at [facility]: On the day before your surgery, you must call [phone] to find out your surgery arrival time. If you are having surgery at a [facility] ([facility] center, [facility]): You will receive a call the day before surgery to give you your surgery arrival time. THE DAY OF SURGERY/CHECK IN Surgery Location Parking Check-in Location [facility] [address] [place] [address] garage or cone baker machine parking available DESK J1-1 A map is located in Your Surgical Guide Book. The online version of the surgical guide book can be found at: [email or web address] [employer] [address] [address] [place], [place] Parking garage connected to hospital or cone baker machine Registration desk, first floor, [facility] [address] [place], [place] Parking lot in front of building [address] (elevator to lower level) [facility] [address] [place], [place] Parking garage next to hospital or cone baker machine [facility], W1 Surgical Waiting Desk [facility] [address] [facility] [address] [place], [place] Parking garage across from main entrance. Main entrance [address] in the back of the hospital, go [...] to dispose of unused medications at three [facility] locations: [facility] pharmacy, [facility] pharmacy, and the Pharmacy at the [facility] for [facility] (inside the parking garage on the first [...] answering service to speak with the doctor continuous pickling line pickler. Press Option 3 for specialty services and speak with the information operator. Dr. Michael Manzanares [place] Office [place] Office Trina Mercado, IMMIGRATION CONSULTANT Mara Landeros, RAS Holman, IMMIGRATION CONSULTANT Mavis Garcia, IMMIGRATION CONSULTANT Kyra Kamara, IMMIGRATION CONSULTANT Stephany Gayle, IMMIGRATION CONSULTANT Please DO NOT use MyChart for post-surgery concerns. documented in this encounterKind[facility] History of Present illness Narrative* Tyrell Esposito, RT(R) - 10/01/2023 7:45 AM EDT Radiology [...] PATIENT PRESENTS WITH AN IMPLANTABLE OR ATTACHED CRACKER SPRAYER: No RADIOLOGY DEPARTMENT: Bone Density PERIPHERAL IV DATA: Not applicable SIGNED BY: RT Jared(R) October 01, 2023 7:49 AM documented in this encounterKindred [facility]05-13-2024 Telephone encounter Note * Telephone Encounter - Zachary Nguyen MD - 09/28/2023 4:16 PM EDT [facility] VALET PARKING ATTENDANT & [facility] IRB#: [id number] Study name: Platelet-Rich Plasma (PRP) [...] REDCap survey to complete. Zachary Nguyen MD [facility] Work Phone: 1(616) 593-763305-13-2024 Miscellaneous Notes* Telephone Encounter - Zachary Nguyen MD - 09/28/2023 4:16 PM EDT [facility] VALET PARKING ATTENDANT & [facility] IRB#: [id number] Study name: Platelet-Rich Plasma (PRP) [...] Nguyen MD - 09/28/2023 2:02 PM EDT [facility] VALET PARKING ATTENDANT & [facility] IRB#: [id number] Study name: Platelet-Rich Plasma (PRP) [...] study. Zachary Nguyen MD documented in this encounterKind[facility]05-13-2024 Telephone encounter Note * Telephone Encounter - Zachary Nguyen MD - 09/28/2023 2:02 PM EDT [facility] VALET PARKING ATTENDANT & [facility] IRB#: [id number] Study name: Platelet-Rich Plasma (PRP) [...] questions about the study. Zachary Nguyen MD [facility]05-13-2024 Instructions* Patient Instructions* Christina Martin APRN.IMMIGRATION CONSULTANT - 09/28/2023 8:02 AM EDT BONE MINERAL [...] your usual activities immediately. documented in this encounterKindred [facility]05-13-2024 History of Present illness Narrative* Christina MartinMEL.IMMIGRATION CONSULTANT - 09/28/2023 7:53 AM EDT CC: Patient [...] 88 Resp 12 Ht 154.9 cm (5' 1") Wt 46.7 kg (103 lb) SpO2 95% [...] DTaP,Tdap,Td Vaccine(1 - Tdap) Never done Covid-19 Vaccine( season) due on 01/16/2023 Advance Directive Discussion [...] plan. Christina Martin APRN.CNP documented in this encounterKindred [facility]04-08-2024 Miscellaneous Notes* Telephone Encounter - Ita Lujan - 08/24/2023 3:36 PM EDT Returned patient's call to reschedule 11/24 post op appt, pt aware of new date and time documented in this encounterKindred [facility]03-21-2024 Miscellaneous Notes* Telephone Encounter - Ita Lujan - 08/06/2023 12:21 PM EDT Spoke with patient and she accepted 10/27/23 surgery date at , scheduled pre & post op appts and informed pt teaching appt will not appear on MyChart documented in this encounterKindred Hospital [facility]03-13-2024 Instructions* Patient Instructions* Michael Manzanares MD - [...] run out of medicine. documented in this encounterKindred Hospital [facility]ima03-13-2024 History of Present illness Narrative* Michael Manzanares [...] abdominal pain/bloating and was told she was "full of stool". She reports fecal incontinence of liquid or very soft gas/stool. She does take fiber supplements to help with her constipation. She denies vaginal dryness. She does use vaginal estrogen. She is sexually active. She reports pain with intercourse occasionally. She denies a strong family history of breast and ovarian cancer. 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 Neg GERICARE AIDE with 300 mL sterile water Neg GERICARE AIDE with 300 mL sterile water with prolapse [...] surgical options: reconstructive versus obliterative, mesh versus [place] tissue, and abdominal versus vaginal versus laparoscopic. Offered TVH, possible BSO (if able), USLS, APR, cysto vs JACEY, sacrocolpopexy, cysto. She decided onvaginal [place] tissue repair. [place] but first available We agreed that we would hold on a suburethral mesh sling at the time of the prolapse repair given her lack of or minimal symptoms and absence of JEMIMA on GERICARE AIDE with 300mL sterile water, prolapse reduced. We [...] by 85%. Given absence of JEMIMA on GERICARE AIDE, will defer mgmt for now. Also defer mgmt of UUI until after surgery 3. Vaginal atrophy Recommend vaginal estrogen cream, which she is already using Michael Manzanares MD I spent a total of 55 minutes on the date of the service which included preparing to see the patient, [id number] patient care, completing clinical documentation, obtaining and/or [...] physician via US mail. documented in this encounterKindred Hospital [facility]12-21-2023 History of Present illness Narrative* Kristen Oviedo [...] discussing with patient and chart review, the patient/operator electronic warfare were instructed to schedule with GI Appointment was scheduled with Adore Sheila KADIE Kristen Oviedo APRN.CNP May 07, 2023 10:58 AM documented in this encounterKindred Hospital [facility]11-30-2023 History of Present illness Narrative* Marcelina Madrigal MD - 04/16/2023 9:19 AM EST Powerhouse Engineer offered: Patient declines. Phyllis Sanchez is a 72 year old female who presents for problem visit. HPI: Patient presents with a bulge at her vaginal opening. It gets worse when she's on her feet. She fist noticed it on Thanksgiving. Patient denies problems with emptying her bladder or bowels. OB History T3 L3 SAB1 IAB0 Ectopic0 Multiple0 Live Births0 Studio Designer History LMP: Postmenopausal Age at Menarche: 17 Age at First : 33 Age at Menopause: Studio Designer History Comments: Sexual Activity: Yes; Male; VASECTOMY [...] Low Marcelina Madrigal MD documented in this encounterKindred [facility]10-24-2023 Miscellaneous Notes* Telephone Encounter - Gisela Navarrete RN - 03/10/2023 1:02 PM EDT Called pt and given results and Christina's recommendations. * Telephone Encounter - Christina Martin APRN.CNP - 03/10/2023 10:17 AM EDT Patient with [...] you Christina Martin APRN.CNP documented in this encounterKindred Hospital [facility]10-23-2023 Miscellaneous Notes* Letter - Coordinator, Mammography - 03/09/2023 3:01 PM EDT March 10, 2023 PID: [id number] Phyllis Sanchez [address] [place] [address] Dear Ms. Sanchez, We are pleased to [...] report will be kept on file at [facility] as part of your permanent medical record and are available for your continuing care. Thank you for allowing us to help in meeting your health care needs. Sincerely, Dr. Kamara Interpreting Radiologist [facility] (Normal over 40) documented in this encounterKindred Hospital [facility]ima10-20-2023 History of Present illness Narrative* Shaila Orozco RT(Vladimir) - 03/06/2023 9:50 AM EDT Radiology Service [...] DATA: Not applicable SIGNED BY: RT Marleny(Vladimir) March 06, 2023 9:39 AM documented in this encounterKindred Hospital [facility]10-19-2023 History of Present illness Narrative* Genny Santiago [...] DATA: Not applicable SIGNED BY: RT Daisy(Vladimir) March 05, 2023 8:52 AM documented in this encounterKindred [facility]10-19-2023 History of Present illness Narrative* Christina Martin APRN.IMMIGRATION CONSULTANT - 03/05/2023 8:06 AM EDT CC: Patient [...] Bowel sounds normal. No masses, organomegaly Right strip machine tender to 4th right toe at PIP and extending to top of right foot. no bruising or obvious deformity. 4th toe with edema, Health maintenance reviewed with patient: RSV Vaccine(1 - 1-dose 60+ series) Never done Mammogram Screening due on 01/16/2023 Influenza Vaccine(1) due on 01/16/2023 Covid-19 Vaccine(4 - 2022- season) due on 01/16/2023 DTaP,Tdap,Td Vaccine(1 - [...] plan. Christina Martin APRN.CNP documented in this encounterKind[facility]04-17-2023 History of Present illness Narrative* Genny Santiago [...] 01, 2022 2:21 PM documented in this encounterKindred Hospital [facility]02-24-2023 History of Present illness Narrative* Marlen Madrigal APRN.IMMIGRATION CONSULTANT - 07/11/2022 1:08 PM EST CC: Patient [...] Patient agreeable to treatment plan. Marlen Madrigal APRN.CNP documented in this encounterKindred [facility]01-18-2023 Discharge summary Author Rohan Colby [facility] June 06, 2022 2:52pm Note Date/Time June 04, 2022 8 :25am [facility] [address] [place] [address]. [address] [place] [address] / REHABILITATION SERVICES DISCHARGE SUMMARY MR#: [id number] Acct: [id number] Name: PHYLLIS SANCHEZ Rep #: [id number] : 1950 71 From: Cert. SYLVIA Shelton, OCS Referring Dr.: Dr. Benjamín Green MD Status: REG RCR Insurance: MEDICARE PART A B AARP It has been my pleasure to treat PHYLLIS SANCHEZ referred by Dr. Benjamín Green MD, with the diagnosis of OTHER TEAR OF MEDIAL MINISCUS ,CURRENT INJURY RIGHT for a total of 8 visit(s). Discharge Date: 06/04/22 Please see the following information for a summary of their discharge status. Subjective: Doing well. Seen DR doing well Objective/Function: MMT: 5/. GAIT: RECIPROCAL PATTERN. AROM: 0-140 DEGREES SUPINE FLEXION Goal 1:: I with HEP for right arthroscopic Goal Progress: Goal Met Goal 2:: Patient to [id number] % improvement with improved function with ADLS' [...] please feel free to call me at [phone]. Thank you for the referral of thispatient. Sincerely, Rohan Colby PT, Rebeca MONTEROT, OCS Balance/Gait/Functional tests - Balance/Special Test Scores Lower Extremity Functional Score: 68 <Electronically signed by Cert. SYLVIA Mckeon PT, OCS> 06/06/22 1452 CC: NANO Pelletier; Dr. Benjamín Green MD ~ MAXX Signed [facility] Work Phone: 1(799) 386-451212-12-2022 History of Present illness Narrative* Jerrell Sarmiento [...] negative. Jerrell Sarmiento MD documented in this encounterKindred [facility]12-04-2022 Hospital Discharge instructions Additional Instructions Please follow-up [...] follow-up CT in 6 months to [facility]WC[facility] Work Phone: 1(733) 658-221309-22-2022 Instructions* Patient Instructions* Tanya Dobson APRN.CNP - 02/06/2022 9:51 AM EDT Avoid bladder irritants - spicy, citrus, tomatoes, smoking, coffee, tea, pop, carbonation, artificial sweeteners, alcohol documented in this encounterKindred Hospital [facility]ima09-22-2022 History of Present illness Narrative* Tanya Dobson APRN.CNP - 02/06/2022 9:17 AM EDT Powerhouse Engineer offered: Patient declines. Phyllis is a 71 [...] L3 SAB1 IAB0 Ectopic0 Multiple0 Live Births0 Studio Designer History LMP: Postmenopausal Age at Menarche: Age at First : Age at Menopause: Studio Designer History Comments: Sexual Activity: Yes; Male; VASECTOMY [...] EXAM: BP 126/82 Resp 14 Ht 5' 0" (1.52m) Wt 102 lb (46.3kg) BMI 19.92 [...] external genitalia normal, normal Bartholin's glands, urethra, Manti's glands, no vulvar lesions, no cervical lesions, [...] needed Tanya Dobson APRN.RAS documented in this encounterKindred Hospital [facility]09-01-2022 Miscellaneous Notes* Letter - Mammography Coordinator - 01/16/2022 9:01 AM EDT January 16, 2022 PID: [id number] Phyllis Sanchez [address] [place] [address] Dear Ms. Sanchez, We are pleased to [...] report will be [facility] as part of your permanent medical record and are available for your continuing care. Thank you for allowing us to help in meeting your health care needs. Sincerely, Dr. Raymundo Interpreting Radiologist [facility] (Normal over 40) documented in this encounterKindred Hospital [facility]ima09-01-2022 History of Present illness Narrative* RT Marleny(Vladimir) - 01/16/2022 7:30 AM EDT Radiology Service [...] 16, 2022 7:32 AM documented in this encounterKindred [facility]04-15-2022 Miscellaneous Notes* Telephone Encounter - Jolanta Navarrete [...] you. Jolanta Navarrete RN documented in this encounterKindred [facility]02-02-2022 History of Present illness Narrative* Jada Melendez [...] 19, 2021 11:11 AM documented in this encounterKindred [facility]11-01-2021 History of Present illness Narrative* Genny Santiago [...] Not applicable SIGNED BY: RT Daisy(R) March 18, 2021 4:24 PM documented in this encounterKindred Hospital LimaConsult note Author Rodolfo Huffman [facility] Note Date/Time November 08, 2024 2:19 pm [facility] Medical Records Department [address] [place] [address] Pre-Anesthesia Evaluation 11/08/24 1413 MR#: [id number] Acct: [id number] Name: PHYLLIS SANCHEZ Rep #:[id number] : 1950 73 From: Rodolfo Huffman MD PCP: 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 Meds patient instructed to take am of surgery Any additional information?: Yes NPO since: (Patient black coffee at 9:45 AM.) Meds taken in AM with sips of water?: No PONV PONV - parallel computing software engineer: PONV - parallel computing software engineer Female Yes 11/03/24 13:18 HX of Motion [...] 11/08/24 13:42 Respiratory Assessment Respiratory Assessment - parallel computing software engineer: Respiratory Tract Infection Hx - parallel computing software engineer Hx Respiratory Tract Infection No 11/03/24 13:18 STOP Sleep Apnea STOP Sleep Apnea - parallel computing software engineer: STOP Sleep Apnea - parallel computing software engineer Hx Hypertension No 11/03/24 13:18 Hx Sleep [...] Tobacco Use History Tobacco Use History - parallel computing software engineer: Tobacco Use History - parallel computing software engineer Tobacco Use Smoking Status Former smoker 11/03/24 13:18 Hx Tobacco Use Yes 11/03/24 13:18 Years Smoking Packs Smoked per Day Smoking Cessation Date was No - quit smoking greater 11/03/24 13:18 within the last 15 years than 15 years ago Hx Smoking Cessation Date 05/18/79 11/03/24 13:18 Hx Smoking Cessation Counseling Hematologic Medial History Hematologic Hx - parallel computing software engineer: Hematologic Medical Hx - mental health professional Hx of Blood Transfusion No 11/03/24 13:18 [...] confused, unrespo /Reproduction History /Reproductive History - parallel computing software engineer: /Reproductive Hx- parallel computing software engineer Hx Now Gestational Age (in weeks): EDC: Hx Hx Para Hx Section SAB No 11/03/24 13:18 Active Medications Active Medications: Current Medications Generic Name Dose Route Start Last Admin Trade Name Nicholasq PRN Reason Stop Dose Admin Lactated Ringer's [...] DAILY 09/0604/22/22 History mcg disintegrating tablet vitamins A,C,C-avop-aqyptd 4,296 1 cap PO BID 12/19/21 04/22/22 [...] no additional complaints, except as documented. 11/08/24 2569 <Electronically signed by Rodolfo forde MD> Date _ Rodolfo Huffman MD Cosigner Signature: Date CC: ~ Signed [facility] Work Phone: Consult note Author David Jeffries [facility] Note Date/Time November 08, 2024 3:01 pm [facility] Medical Records Department [address] [place] [address] Anesthesia Postop Eval I 11/08/24 1500 MR#: [id number] Acct: [id number] Name: PHYLLIS SANCHEZ Rep #:[id number] : 1950 73 From: David Jeffries PCP: CHRISTINA MARTIN PRINTER TECHNICIAN-C Status:REG SDC Y Race: C Location: [place] [address] Anesthesia: Postop Eval I Current Vital Signs [...] David Valadez Signature: Date CC: ~ Signed [facility] Work Phone: Evaluation note* Diagnosis Osteopenia, unspecified location [facility] Diagnosis Encounter for screening mammogram for breast cancer Dense breast tissue on mammogram [facility] Diagnosis Encounter for routine gynecologic examination in Medicare patient- Primary Urinary frequency Cystocele, midline Encounter for screening mammogram for breast cancer Dense breast tissue [facility] Diagnosis Onset Date Resolution Status Osteoarthritis of right knee acute Right knee pain acute Osteoarthritis of right knee acute Right knee pain acute Tear of medial meniscus of right knee acute [facility] Work Phone: Evaluation note* Diagnosis Onset Date Resolution Status Osteoarthritis of right knee acute Right knee pain acute Tear of medial meniscus of right knee acute Osteoarthritis of right knee acute Right knee pain acute Synovial cyst of popliteal space [Ho], right knee acute Tear of medial meniscus of right knee acute [facility] Work Phone: Evaluation note* Diagnosis Onset Date [...] of medial meniscus of right knee acute [facility] Work Phone: Evaluation note* Diagnosis Acute non-recurrent sinusitis, unspecified location- Primary [facility] Diagnosis Onset Date Resolution Status Osteoarthritis [...] of medial meniscus of right knee acute [facility] Work Phone: Evaluation note* Diagnosis Sore throat- Primary Acute pharyngitis documented in this encounter [facility] note* Diagnosis Osteopenia, unspecified location- Primary Bladder pain Other symptoms involving urinary system Toe pain, right Pain in limb Right foot pain Pain in limb Need for influenza vaccination Need for prophylactic vaccination and inoculation against influenza documented in this encounter [facility] note* Diagnosis Encounter for screening mammogram for breast cancer documented in this encounter [facility] note* Diagnosis Encounter for screening mammogram for breast cancer Dense breast tissue [facility] noteNo assessment information availableWC[facility] Work Phone: Evaluation note* Diagnosis Cystocele, midline- Primary Uterine prolapse Uterine prolapse without mention of vaginal wall prolapse documented in this encounter [facility] note* Diagnosis Cystocele, midline- Primary Mixed stress and urge urinary incontinence Mixed incontinence urge and stress (male)(female) Vaginal atrophy Postmenopausal atrophic vaginitis Uterovaginal prolapse, incomplete Rectocele Preop examination Preoperative examination, unspecified documented in this encounter [facility] note* Diagnosis Onset Date Resolution Status Osteoarthritis of right knee acute Synovial cyst of popliteal space [Ho], right knee acute Tear of medial meniscus of right knee acute Osteoarthritis of right knee acute Synovial cyst of popliteal space [Ho], right knee acute Tear of medial meniscus of right knee acute [facility] Work Phone: Evaluation note* Diagnosis Osteopenia, unspecified location- Primary Encounter for screening for osteoporosis Special screening for osteoporosis Asymptomatic postmenopausal status Annual physical exam Routine general medical examination at a [facility] care facility Uterovaginal prolapse, incomplete Cystocele, midline Rectocele documented in this encounter [facility] note* Diagnosis Encounter for screening for osteoporosis Special screening for osteoporosis Asymptomatic postmenopausal status Uterovaginal prolapse, incomplete Cystocele, midline Rectocele documented in this encounter [facility] note* Diagnosis Educational circumstance- Primary Uterovaginal prolapse, incomplete Cystocele, midline Rectocele documented in this encounter [facility] note* Diagnosis Pre-operative examination- Primary Preoperative [...] analgesics as needed [facility] Diagnosis Encounter for urine test- Primary Laboratory examination, unspecified [facility] Diagnosis Mixed stress and urge urinary incontinence- Primary Mixed incontinence urge and stress (male)(female) Uterovaginal prolapse, incomplete Cystocele, midline [facility]* Diagnosis Pre-operative examination- Primary Preoperative examination, unspecified Chronic left-sided low back pain without sciatica Uterovaginal prolapse, incomplete Cystocele, midline Rectocele Osteoporosis, unspecified osteoporosis type, unspecified pathological fracture presence Solitary pulmonary nodule Hx of seizure disorder Personal history of other disorders of nervous system and sense organs Osteopenia, unspecified location [facility] Diagnosis Right foot pain Pain in limb Toe pain, right Pain in limb [facility] Diagnosis Pre-operative examination- Primary Preoperative examination, [...] Rectocele [facility] Diagnosis Chronic right-sided low back pain without sciatica documented in this encounter [facility]* Diagnosis Chronic right shoulder pain Pain in joint, shoulder region documented in this encounter [facility]* Diagnosis Abnormal x-ray Other nonspecific (abnormal) findings on radiological and other examinations of body structure [facility]* Diagnosis Osteopenia, unspecified location DDD (degenerative disc disease), lumbar Degeneration of lumbar or lumbosacral intervertebral disc Chronic right-sided low back pain without sciatica [facility]* Diagnosis Pre-operative examination- Primary Preoperative examination, [...] incontinence [facility]* Diagnosis Pre-operative examination- Primary Preoperative examination, unspecified Chronic left-sided low back pain without sciatica Uterovaginal prolapse, incomplete Cystocele, midline Rectocele Osteoporosis, unspecified osteoporosis type, unspecified pathological fracture presence Solitary pulmonary nodule Hx of seizure disorder Personal history of other disorders of nervous system and sense organs Encounter for screening mammogram for breast cancer [facility]* Diagnosis Pre-operative examination- Primary Preoperative examination, [...] menopause [facility]* Diagnosis Pre-operative examination- Primary Preoperative examination, [...] atresia of vagina documented in this encounter [facility] note* Diagnosis Pre-operative examination- Primary Preoperative examination, unspecified Chronic left-sided low back pain without sciatica Uterovaginal prolapse, incomplete Cystocele, midline Rectocele Osteoporosis, unspecified osteoporosis type, unspecified pathological fracture presence Solitary pulmonary nodule Hx of seizure disorder Personal history of other disorders of nervous system and sense organs Medicare annual wellness visit, subsequent- Primary Routine general medical examination at a [facility] Montez's esophagus without dysplasia Montez's esophagus Osteopenia, unspecified location Medication management Encounter for long-term (current) use of other medications Screening for depression Encounter for screening examination for other mental health and behavioral disorders Encounter for immunization Need for other specified prophylactic vaccination against single bacterial disease Lipid screening Screening for lipoid disorders documented in this encounter [facility] note* Diagnosis Pre-operative examination- Primary Preoperative examination, unspecified Chronic left-sided low back pain without sciatica Uterovaginal prolapse, incomplete Cystocele, midline Rectocele Osteoporosis, unspecified osteoporosis type, unspecified pathological fracture presence Solitary pulmonary nodule Hx of seizure disorder Personal history of other disorders of nervous system and sense organs Encounter for screening mammogram for breast cancer- Primary documented in this encounter [facility] Discharge instructionsAmbulatory Orders* Physical Therapy Referral Location: None [facility] Work Phone: Reason for referral (narrative)* Diagnostic Procedure Only (Routine) - Pending Review Specialty Diagnoses / Procedures Referred By Fidencio t Referred To Contact [facility] Diagnoses Encounter for screening mammogram for breast cancer Dense breast tissue Procedures TAYLOR SCREENING W AQUILES SCREENING DIGITAL BREAST TOMOSYNTHESIS BI SCREENING MAMMOGRAPHY BI 2-VIEW BREAST INC Tanya Welch, ELECTROCHEMIST.IMMIGRATION CONSULTANT [address] [place] [address] [facility] [address] [place] [address] Referral ID Status Reason Start Date Expiration Date Visits Requested Visits Authorized [id number] Pending Review Auto-Generat ed Referral 02/06/2022 03/08/2023 1 1 [facility] for referral (narrative)* Diagnostic Procedure Only (Routine) - Pending Review Specialty Diagnoses / Procedures Referred By Contac t Referred To Contact [facility] Diagnoses Encounter for screening mammogram for breast cancer Procedures TAYLOR SCREENING W AQUILES SCREENING DIGITAL BREAST TOMOSYNTHESIS BI SCREENING MAMMOGRAPHY BI 2-VIEW BREAST INC Murphy Ruiz MD [address] [place] [address] [facility] [address] [place] [address] Referral ID Status Reason Start Date Expiration Date Visits Requested Visits Authorized [id number] Pending Review Auto-Generat ed Referral 3 04/02/2024 1 1 [facility] for referral (narrative)* Diagnostic Procedure Only (Routine) - Closed Specialty Diagnoses / Procedures Referred By Contac t Referred To Contact [facility] Diagnoses Encounter for screening mammogram for breast cancer Dense breast tissue Procedures TAYLOR SCREENING W AQUILES SCREENING DIGITAL BREAST TOMOSYNTHESIS BI SCREENING MAMMOGRAPHY BI 2-VIEW BREAST INC Tanya Welch APRN.CNP [address] [place] [address] [facility] [address] [place] [address] Referral ID Status Reason Start Date Expiration Date V isits Requested Visits Authorized [id number] Closed Auto-Generate d Referral 02/06/2022 03/08/2023 1 1 T [facility] for referral (narrative)* Diagnostic Procedure Only (Routine) - Authorized Specialty Diagnoses / Procedures Referred By Contac t Referred To Contact XR IMAGING Diagnoses Encounter for screening for osteoporosis Asymptomatic postmenopausal status Procedures DXA-AXIAL SKELETON Christina Martin APRN.CNP [address] [place] [address] [place] [address] Referral ID Status Reason Start Date Expiration Date Visits Requested Visits Authorized [id number] Authorized Auto-Generat ed Referral 09/28/2023 10/27/2024 1 1 [facility] for referral (narrative)* Diagnostic Procedure Only (Routine) - Closed Specialty Diagnoses / Procedures Referred By Contac t Referred To Contact XR IMAGING Diagnoses Right foot pain Procedures XR FOOT GENERAL 3V AP/LAT/OBL RIGHT RADEX FOOT COMPLETE MINIMUM 3 VIEWS Christina Martin APRN.IMMIGRATION CONSULTANT [address] [place] [address] [place] [address] Referral ID Status Reason Start Date Expiration Date V isits Requested Visits Authorized [id number] Closed Auto-Generate d Referral 03/05/2023 04/03/2024 1 1 [facility] for referral (narrative)* Diagnostic Procedure Only (Routine) - Closed Specialty Diagnoses / Procedures Referred By Contac t Referred To Contact XR IMAGING Diagnoses Chronic right-sided low back pain without sciatica Procedures XR LUMBAR GENERAL 3V AP/LAT/L5-S1 RADEX SPINE LUMBOSACRAL 2/3 VIEWS Christina Martin APRN.IMMIGRATION CONSULTANT [address] [place] [address] [place] [address] Referral ID Status Reason Start Date Expiration Date V isits Requested Visits Authorized [id number] Closed Auto-Generate d Referral 09/01/2022 10/01/2023 1 1 [facility] for referral (narrative)* Diagnostic Procedure Only (Routine) - Closed Specialty Diagnoses / Procedures Referred By Contac t Referred To Contact XR IMAGING Diagnoses Chronic right shoulder pain Procedures XR SHOULDER GENERAL 3V OR MORE AP/TRUE AP/OTHER RIGHT RADEX SHOULDER COMPLETE MINIMUM 2 VIEWS Alondra Pelletier APRN.IMMIGRATION CONSULTANT [address] [place] [address] [place] [address] Referral ID Status Reason Start Date Expiration Date V isits Requested Visits Authorized [id number] Closed Auto-Generate d Referral 06/18/2021 05/17/2022 1 1 [facility] for referral (narrative)* Diagnostic Procedure Only (Routine) - Closed Specialty Diagnoses / Procedures Referred By Contac t Referred To Contact XR IMAGING Diagnoses Osteopenia, unspecified location DDD (degenerative disc disease), lumbar Chronic right-sided low back pain without sciatica Procedures XR SACROILIAC JOINTS 2V AP PELVIS/FERGUESON X-RAY SACRO-ILIAC JOINTS MIN 3 VIEW Murphy Cuevas MD [address] [place] [id number] [place] [address] Referral ID Status Reason Start Date Expiration [...] L-S SPINE AP/LATERAL Murphy Cuevas MD [address] [place] [address] [place] [address] Referral ID Status Reason Start Date Expiration Date V isits Requested Visits Authorized Closed Auto-Generate d Referral 03/18/2021 04/17/2022 1 1 [facility] for referral (narrative)* Diagnostic Procedure Only (Routine) - Closed Specialty Diagnoses / Procedures Referred By Contac t Referred To Contact [facility] Diagnoses Encounter for screening mammogram for breast cancer Procedures TAYLOR SCREENING W AQUILES SCREENING DIGITAL BREAST TOMOSYNTHESIS BI SCREENING MAMMOGRAPHY BI 2-VIEW BREAST INC CAD Murphy Cuevas MD [address] [place] [address] [facility] [address] [place] [address] Referral ID Status Reason Start Date Expiration Date V isits Requested Visits Authorized [id number] Closed Auto-Generate d Referral 03/04/2023 04/02/2024 1 1 [facility] for referral (narrative)No reason for referral information availableWCleveland [facility] Work Phone: Reason for visit Narrative* Diagnostic Procedure Only (Routine) - Closed Specialty Diagnoses / Procedures Referred By Contac t Referred To Contact [facility] Diagnoses Encounter for screening mammogram for breast cancer Dense breast tissue Procedures TAYLOR SCREENING W AQUILES SCREENING DIGITAL BREAST TOMOSYNTHESIS BI SCREENING MAMMOGRAPHY BI 2-VIEW BREAST INC CAD Tanya Dobson, ELECTROCHEMIST.IMMIGRATION CONSULTANT [address] [place] [phone] [facility] [address] [place] [address] Referral ID Status Reason Start Date Expiration Date V isits Requested Visits Authorized [id number] Closed Auto-Generate d Referral 02/06/2022 03/08/2023 1 1 [facility] for visit Narrative* Diagnostic Procedure Only (Routine) - Closed Specialty Diagnoses / Procedures Referred By Contac t Referred To Contact XR IMAGING Diagnoses Encounter for screening for osteoporosis Asymptomatic postmenopausal status Procedures DXA-AXIAL SKELETON Christina Martin, ELECTROCHEMIST.IMMIGRATION CONSULTANT [address] [place] [address] [place] [address] Referral ID Status Reason Start Date Expiration Date V isits Requested Visits Authorized [id number] Closed Auto-Generate d Referral 09/28/2023 10/27/2024 1 1 [facility] for visit Narrative* Diagnostic Procedure Only (Routine) - Closed Specialty Diagnoses / Procedures Referred By Contac t Referred To Contact XR IMAGING Diagnoses Toe pain, right Procedures XR TOE AP/LAT/OBL RIGHT RADEX TOE MINIMUM 2 VIEWS Christina Martin, ELECTROCHEMIST.IMMIGRATION CONSULTANT [address] [place] [address] [place] [address] Referral ID Status Reason Start Date Expiration Date V isits Requested Visits Authorized [id number] Closed Auto-Generate d Referral 03/05/2023 04/03/2024 1 1 [facility] for visit Narrative* Diagnostic Procedure Only (Routine) - Closed Specialty Diagnoses / Procedures Referred By Contac t Referred To Contact XR IMAGING Diagnoses Chronic right-sided low back pain without sciatica Procedures XR LUMBAR GENERAL 3V AP/LAT/L5-S1 RADEX SPINE LUMBOSACRAL 2/3 VIEWS Christina Martin, ELECTROCHEMIST.IMMIGRATION CONSULTANT [address] [place] [address] [place] [address] Referral ID Status Reason Start Date Expiration Date V isits Requested Visits Authorized [id number] Closed Auto-Generate d Referral 09/01/2022 10/01/2023 1 1 [facility] for visit Narrative* Diagnostic Procedure Only (Routine) - Closed Specialty Diagnoses / Procedures Referred By Contac t Referred To Contact XR IMAGING Diagnoses Chronic right shoulder pain Procedures XR SHOULDER GENERAL 3V OR MORE AP/TRUE AP/OTHER RIGHT RADEX SHOULDER COMPLETE MINIMUM 2 VIEWS Alondra Pelletier, ELECTROCHEMIST.IMMIGRATION CONSULTANT [address] [place] [address] [place] [address] Referral ID Status Reason Start Date Expiration Date V isits Requested Visits Authorized [id number] Closed Auto-Generate d Referral 06/18/2021 05/17/2022 1 1 [facility] for visit Narrative* Diagnostic Procedure Only (Routine) - Closed Specialty Diagnoses / Procedures Referred By Contac t Referred To Contact XR IMAGING Diagnoses Osteopenia, unspecified location DDD (degenerative disc disease), lumbar Chronic right-sided low back pain without sciatica Procedures XR SACROILIAC JOINTS 2V AP PELVIS/FERGUESON X-RAY SACRO-ILIAC JOINTS MIN 3 VIEW Murphy Cuevas MD [address] [place] [address] [place] [address] Referral ID Status Reason Start Date Expiration Date V isits Requested Visits Authorized [id number] Closed Auto-Generate d Referral 03/18/2021 04/17/2022 1 1 [facility] Diagnostic Procedure Only (Routine) - Closed Specialty Diagnoses / Procedures Referred By Fidencio griffin Referred To Contact [facility] Diagnoses Encounter for screening mammogram for breast cancer Procedures TAYLOR SCREENING W AQUILES SCREENING DIGITAL BREAST TOMOSYNTHESIS BI SCREENING MAMMOGRAPHY BI 2-VIEW BREAST INC CAD Murphy Cuevas MD [address] [place] [address] [facility] [address] [place] [address] Referral ID Status Reason Start Date Expiration Date V isits Requested Visits Authorized [id number] Closed Auto-Generate d Referral 03/04/2023 04/02/2024 1 1 [facility] Advance Directives No Advanced Directives Records FoundDocuments on File Type Date Recorded 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 Advance Directive(s) 07/02/2018 5:48 AM Advance Directive(s) 06/03/2018 8:47 AM Advance Directive Response Recorded Date/ Time Living Will No April 20 9:10am Power of International Accounting Manager No April 20, 2022 9:10am Advance Directive Response Recorded Date/ Time Living Will No April 24 9:04am Power of International Accounting Manager No April 24, 2022 9:04am Advance Directive Response Recorded Date/ Time Living Will No July 29, 2023 9:51am Power of International Accounting Manager No July 28 9:51am Advance Directive Response Recorded Date/ Time Do you have a Healthcare Power of International Accounting Manager? Yes November 03, 2024 1:18pm Reason for Referral Specialty Diagnoses / Procedures Referred By Fidencio griffin Referred To Contact [facility] Diagnoses Encounter for screening mammogram for breast cancer Dense breast tissue on mammogram Procedures TAYLOR SCREENING W AQUILES SCREENING BREAST DGTL AQUILES UNI/BILAT ADD ON SCREENING MAMMOGRAPHY BI 2-VIEW BREAST INC CAD Tanya Dobson, ELECTROCHEMIST.IMMIGRATION CONSULTANT [address] [place] [address] [facility] [address] [place] [address] Referral ID Status Reason Start Date Expiration Date Visits Re quested Visits Authorized [id number] Closed 12/20/2020 01/19/2022 1 1 Specialty Diagnoses / Procedures Referred By Contac t Referred To Contact Urology Diagnoses Bladder pain Procedures CONSULT TO UROLOGY OFFICE/OUTPATIENT [facility] 60-74 MINUTES Christina Martin APRN.IMMIGRATION CONSULTANT [address] [place] [address] Referral ID Status Reason Start Date Expiration Date Visits Requested Visits Authorized [id number] Authorized PCP Requested Referral 3 03/04/2024 1 1 Specialty Diagnoses / Procedures Referred By Contac t Referred To Contact XR IMAGING Diagnoses Toe pain, right Procedures XR TOE AP/LAT/OBL RIGHT RADEX TOE MINIMUM 2 VIEWS Christina Martin APRN.IMMIGRATION CONSULTANT [address] [place] [address] [place] [address] Referral ID Status Reason Start Date Expiration Date V isits Requested Visits Authorized [id number] Closed Auto-Generate d Referral 03/05/2023 04/03/2024 1 1 Specialty Diagnoses / Procedures Referred By Contac t Referred To Contact XR IMAGING Diagnoses Right foot pain Procedures XR FOOT GENERAL 3V AP/LAT/OBL RIGHT RADEX FOOT COMPLETE MINIMUM 3 VIEWS Christina Martin APRN.IMMIGRATION CONSULTANT [address] [place] [address] [place] [address] Referral ID Status Reason Start Date Expiration Date V isits Requested Visits Authorized [id number] Closed Auto-Generate d Referral 03/05/2023 04/03/2024 1 1 Specialty Diagnoses / Procedures Referred By Contac t Referred To Contact Diagnoses Cystocele, midline Uterine prolapse Procedures CONSULT TO URO GYNECOLOGY OFFICE/OUTPATIENT [facility] 60-74 MINUTES Marcelina Madrigal MD [address] [place] [address] Referral ID Status Reason Start Date Expiration Date Visits Requested Visits Authorized [id number] Authorized PCP Requested Referral Auto-Generate d Referral 3 04/15/2024 1 1 Specialty Diagnoses / Procedures Referred By Contac t Referred To Contact Diagnoses Uterovaginal prolapse, incomplete Cystocele, midline Rectocele Procedures REFER TO PACC - PRE ANESTHESIA CONSULTATION CLINIC OFFICE/OUTPATIENT [facility] 60 MINUTES Michael Manzanares MD [address] [facility] [address] [place] [address] Referral ID Status Reason Start Date Expiration Date Visits Requested Visits Authorized [id number] Authorized PCP Requested Referral 08/04/2023 07/28/2024 1 [...] January 25, 2025 8:53am Test Result-Abd Pain/Constipation Septem 2024 8:57am Reason for Visit Admit Date Abdominal [...] or prosecute any alcohol or drug abuse patient.[facility] the event this information is protected by the Federal Confidentiality of Alcohol and Drug Abuse Patient Records regulations: The Federal rules restrict any use of the information to criminally investigate or prosecute any alcohol or drug abuse patient.[facility] the event this information is protected by the Federal Confidentiality of Alcohol and Drug Abuse Patient Records regulations: The Federal rules restrict any use of the information to criminally investigate or prosecute any alcohol or drug abuse patient.[facility] the event this information is protected by the Federal Confidentiality of Alcohol and Drug Abuse Patient Records regulations: The Federal rules restrict any use of the information to criminally investigate or prosecute any alcohol or drug abuse patient.[facility] the event this information is protected by the Federal Confidentiality of Alcohol and Drug Abuse Patient Records regulations: The Federal rules restrict any use of the information to criminally investigate or prosecute any alcohol or drug abuse patient.[facility]imaIn the event this information is protected by the Federal Confidentiality of Alcohol and Drug Abuse Patient Records regulations: The Federal rules restrict any use of the information to criminally investigate or prosecute any alcohol or drug abuse patient.[facility]imaIn the event this information is protected by the Federal Confidentiality of Alcohol and Drug Abuse Patient Records regulations: The Federal rules restrict any use of the information to criminally investigate or prosecute any alcohol or drug abuse patient.[facility]imaIn the event this information is protected by the Federal Confidentiality of Alcohol and Drug Abuse Patient Records regulations: The Federal rules restrict any use of the information to criminally investigate or prosecute any alcohol or drug abuse patient.[facility]imaIn the event this information is protected by the Federal Confidentiality of Alcohol and Drug Abuse Patient Records regulations: The Federal rules restrict any use of the information to criminally investigate or prosecute any alcohol or drug abuse patient.[facility]imaIn the event this information is protected by the Federal Confidentiality of Alcohol and Drug Abuse Patient Records regulations: The Federal rules restrict any use of the information to criminally investigate or prosecute any alcohol or drug abuse patient.[facility]imaIn the event this information is protected by the Federal Confidentiality of Alcohol and Drug Abuse Patient Records regulations: The Federal rules restrict any use of the information to criminally investigate or prosecute any alcohol or drug abuse patient.[facility]imaIn the event this information is protected by the Federal Confidentiality of Alcohol and Drug Abuse Patient Records regulations: The Federal rules restrict any use of the information to criminally investigate or prosecute any alcohol or drug abuse patient.[facility]imaIn the event this information is protected by the Federal Confidentiality of Alcohol and Drug Abuse Patient Records regulations: The Federal rules restrict any use of the information to criminally investigate or prosecute any alcohol or drug abuse patient.[facility]imaIn the event this information is protected by the Federal Confidentiality of Alcohol and Drug Abuse Patient Records regulations: The Federal rules restrict any use of the information to criminally investigate or prosecute any alcohol or drug abuse patient.[facility]imaIn the event this information is protected by the Federal Confidentiality of Alcohol and Drug Abuse Patient Records regulations: The Federal rules restrict any use of the information to criminally investigate or prosecute any alcohol or drug abuse patient.[facility]imaIn the event this information is protected by the Federal Confidentiality of Alcohol and Drug Abuse Patient Records regulations: The Federal rules restrict any use of the information to criminally investigate or prosecute any alcohol or drug abuse patient.[facility]imaIn the event this information is protected by the Federal Confidentiality of Alcohol and Drug Abuse Patient Records regulations: The Federal rules restrict any use of the information to criminally investigate or prosecute any alcohol or drug abuse patient.[facility]imaIn the event this information is protected by the Federal Confidentiality of Alcohol and Drug Abuse Patient Records regulations: The Federal rules restrict any use of the information to criminally investigate or prosecute any alcohol or drug abuse patient.[facility]imaIn the event this information is protected by the Federal Confidentiality of Alcohol and Drug Abuse Patient Records regulations: The Federal rules restrict any use of the information to criminally investigate or prosecute any alcohol or drug abuse patient.[facility]imaIn the event this information is protected by the Federal Confidentiality of Alcohol and Drug Abuse Patient Records regulations: The Federal rules restrict any use of the information to criminally investigate or prosecute any alcohol or drug abuse patient.[facility]imaIn the event this information is protected by the Federal Confidentiality of Alcohol and Drug Abuse Patient Records regulations: The Federal rules restrict any use of the information to criminally investigate or prosecute any alcohol or drug abuse patient.[facility]imaIn the event this information is protected by the Federal Confidentiality of Alcohol and Drug Abuse Patient Records regulations: The Federal rules restrict any use of the information to criminally investigate or prosecute any alcohol or drug abuse patient.[facility]imaIn the event this information is protected by the Federal Confidentiality of Alcohol and Drug Abuse Patient Records regulations: The Federal rules restrict any use of the information to criminally investigate or prosecute any alcohol or drug abuse patient.[facility]imaIn the event this information is protected by the Federal Confidentiality of Alcohol and Drug Abuse Patient Records regulations: The Federal rules restrict any use of the information to criminally investigate or prosecute any alcohol or drug abuse patient.[facility]imaIn the event this information is protected by the Federal Confidentiality of Alcohol and Drug Abuse Patient Records regulations: The Federal rules restrict any use of the information to criminally investigate or prosecute any alcohol or drug abuse patient.[facility]imaIn the event this information is protected by the Federal Confidentiality of Alcohol and Drug Abuse Patient Records regulations: The Federal rules restrict any use of the information to criminally investigate or prosecute any alcohol or drug abuse patient.[facility]imaIn the event this information is protected by the Federal Confidentiality of Alcohol and Drug Abuse Patient Records regulations: The Federal rules restrict any use of the information to criminally investigate or prosecute any alcohol or drug abuse patient.[facility]imaIn the event this information is protected by the Federal Confidentiality of Alcohol and Drug Abuse Patient Records regulations: The Federal rules restrict any use of the information to criminally investigate or prosecute any alcohol or drug abuse patient.[facility]imaIn the event this information is protected by the Federal Confidentiality of Alcohol and Drug Abuse Patient Records regulations: The Federal rules restrict any use of the information to criminally investigate or prosecute any alcohol or drug abuse patient.[facility]imaIn the event this information is protected by the Federal Confidentiality of Alcohol and Drug Abuse Patient Records regulations: The Federal rules restrict any use of the information to criminally investigate or prosecute any alcohol or drug abuse patient.[facility]imaIn the event this information is protected by the Federal Confidentiality of Alcohol and Drug Abuse Patient Records regulations: The Federal rules restrict any use of the information to criminally investigate or prosecute any alcohol or drug abuse patient.[facility]imaIn the event this information is protected by the Federal Confidentiality of Alcohol and Drug Abuse Patient Records regulations: The Federal rules restrict any use of the information to criminally investigate or prosecute any alcohol or drug abuse patient.[facility]imaIn the event this information is protected by the Federal Confidentiality of Alcohol and Drug Abuse Patient Records regulations: The Federal rules restrict any use of the information to criminally investigate or prosecute any alcohol or drug abuse patient.[facility]imaIn the event this information is protected by the Federal Confidentiality of Alcohol and Drug Abuse Patient Records regulations: The Federal rules restrict any use of the information to criminally investigate or prosecute any alcohol or drug abuse patient.[facility]imaIn the event this information is protected by the Federal Confidentiality of Alcohol and Drug Abuse Patient Records regulations: The Federal rules restrict any use of the information to criminally investigate or prosecute any alcohol or drug abuse patient.[facility]imaIn the event this information is protected by the Federal Confidentiality of Alcohol and Drug Abuse Patient Records regulations: The Federal rules restrict any use of the information to criminally investigate or prosecute any alcohol or drug abuse patient.[facility]imaIn the event this information is protected by the Federal Confidentiality of Alcohol and Drug Abuse Patient Records regulations: The Federal rules restrict any use of the information to criminally investigate or prosecute any alcohol or drug abuse patient.[facility]imaIn the event this information is protected by the Federal Confidentiality of Alcohol and Drug Abuse Patient Records regulations: The Federal rules restrict any use of the information to criminally investigate or prosecute any alcohol or drug abuse patient.[facility]imaIn the event this information is protected by the Federal Confidentiality of Alcohol and Drug Abuse Patient Records regulations: The Federal rules restrict any use of the information to criminally investigate or prosecute any alcohol or drug abuse patient.[facility] Reason for Visit (unrecogniz ed section and content) Reason Onset Date Comments Refill Request 08/30/2021 Specialty Diagnoses / Procedures Referred By Fidencio griffin Referred To Contact Radiology / [facility] Diagnoses Encounter for screening mammogram for breast cancer Dense breast tissue on mammogram . Procedures SCREENING MAMMOGRAPHY BI 2-VIEW BREAST INC CAD SCREENING DIGITAL BREAST TOMOSYNTHESIS BI MAMMOGRAM TOMOGRAM SCREEN Tanya Dobson APRN.IMMIGRATION CONSULTANT [address] [place] [address] [facility] [address] [place] [address] Referral ID Status Reason Start Date Expiration Date Visits Re quested Visits Authorized [id number] Closed 01/16/2022 1 0 Reason Comments Well [...] CONSULTATION CLINIC OFFICE/OUTPATIENT [facility] 60 MINUTES Michael Manzanares MD [address] [address] Referral ID Status Reason Start Date Expiration Date V isits Requested Visits Authorized [id number] Closed PCP Requested Referral 08/04/2023 07/28/2024 1 1 Reason Comments Voiding Trial Reason Onset Date Comments Refill Request 01/28/2024 Reason Comments Post Op Reason Comments Care Coordination Bulkamid Specialty Diagnoses / Procedures Referred By Fidencio t Referred To Contact Radiology / RADIO GENERAL [facility] Diagnoses Abnormal x-ray [R93.89] Procedures XR CHEST Alondra Pelletier APRN.IMMIGRATION CONSULTANT [address] [place] [address] Radio General [facility] [address] [place] [address] Referral ID Status Reason Start Date Expiration Date V isits Requested Visits Authorized [id number] Closed OON/Self Pay Override 06/19/2021 05/17/2022 1 1 Reason Comments Procedure Cystoscopy with Bulk amid Reason Comments Care Coordination Bulkamid Follow-Up Reason Comments Recheck 6 month follow up Reason Comments Follow Up Reason Onset Date Comments Population Health Navigation Outreach 01/02/2025 Uriah/Workbench/ACO Reason Comments Medicare Wellness Exam Annual Medicare w ellness Reason Comments Orders Care Teams (unrecognized sec tion and content) Photoengraving Sketch Maker Relationship Specialty Start Date End Date Murphy Cuevas MD [address] [place] [address] PCP - General Internal Medicine 10/05/20 Photoengraving Sketch Maker Relationship Specialty Start Date End Date Murphy Cuevas MD [address] [place] [address] PCP - General Internal Medicine 10/05/20 Photoengraving Sketch Maker Relationship Specialty Start Date End Date Murphy Cuevas MD [address] [place] [address] PCP - General Internal Medicine 10/05/20 Photoengraving Sketch Maker Relationship Specialty Start Date End Date Murphy Cuevas MD [address] [place] [address] PCP - General Internal Medicine 10/05/20 Team Status: Active Member Role Status Dates Alondra Pelletier PRINTER TECHNICIAN, PRINTER TECHNICIAN-C Primary Care Provider Active Team Status: Inactive Member Role Status Dates No Primary Care Physician Primary Care Provider, Refer ring Provider Active Benjamín Green MD Attending Provider Active Team Status: Inactive Member Role Status Dates No Primary Care Physician Referring Provider Active Benjamín Green MD Attending Provider Active Alondra Pelletier PRINTER TECHNICIAN, PRINTER TECHNICIAN-C Primary Care Provider Active Team Status: Active Member Role Status Dates Benjamín Green MD Attending Provider, Referring Provider, Other Provider Active Alondra Pelletier PRINTER TECHNICIAN, PRINTER TECHNICIAN-C Primary Care Provider Active Team Status: Inactive Member Role Status Dates Alondra Pelletier PRINTER TECHNICIAN, PRINTER TECHNICIAN-C Primary Care Provider, Referri ng Provider Active Benjamín Green MD Attending Provider Active Team Status: Inactive Member Role Status Dates No Primary Care Physician Primary Care Provider Active Benjamín Green MD Attending Provider Active Team Status: Inactive Member Role Status Dates Benjamín Green MD Attending Provider, Referring Prov ider Active Alondra Pelletier PRINTER TECHNICIAN, PRINTER TECHNICIAN-C Primary Care Provider Active Team Status: Inactive Member Role Status Dates Dr. Teodoro Chris DO Attending Provider, [facility] Active Alondra Pelletier PRINTER TECHNICIAN, PRINTER TECHNICIAN-C Primary Care Provider Active Team Status: Inactive Member Role Status Dates Alondra Pelletier PRINTER TECHNICIAN, PRINTER TECHNICIAN-C Primary Care Provider Active Benjamín Green MD Attending Provider, Referring Prov ider Active Photoengraving Sketch Maker Relationship Specialty Start Date End Date Murphy Cuevas MD [address] [place] [address] PCP - General Internal Medicine 10/05/20 Photoengraving Sketch Maker Relationship Specialty Start Date End Date Murphy Cuevas MD [address] [place], [place] [address] PCP - General Internal Medicine 10/05/20 Photoengraving Sketch Maker Relationship Specialty Start Date End Date Murphy Cuevas MD [address] [place], [place] [address] PCP - General Internal Medicine 10/05/20 Photoengraving Sketch Maker Relationship Specialty Start Date End Date Murphy Cuevas MD [address] [place] [address] PCP - General Internal Medicine 10/05/20 Photoengraving Sketch Maker Relationship Specialty Start Date End Date Murphy Cuevas MD [address] [place] [address] PCP - General Internal Medicine 10/05/20 Photoengraving Sketch Maker Relationship Specialty Start Date End Date Murphy Cuevas MD [address] [place] [address] PCP - General Internal Medicine 10/05/20 Team Status: Active Member Role Status Dates CHRISTINA MARTIN PRINTER TECHNICIAN-C Primary Care Provider Active Team Status: Inactive Member Role Status Dates Dr. Abdirahman Mensah MD Attending Provider, Referr ing Provider Active CHRISTINA MARTIN PRINTER TECHNICIAN-C Primary Care Provider Active Photoengraving Sketch Maker Relationship Specialty Start Date End Date Murphy Cuevas MD [address] [place] [address] PCP - General Internal Medicine 10/05/20 Photoengraving Sketch Maker Relationship Specialty Start Date End Date Murphy Cuevas MD [address] [place], [place] [address] PCP - General Internal Medicine 10/05/20 Team Status: Inactive Member Role Status Dates CHRISTINA MARTIN PRINTER TECHNICIAN-C Primary Care Provider Active Dr. Marcos Puente MD Attending Provider, Referring P rofabider Active Photoengraving Sketch Maker Relationship Specialty Start Date End Date Murphy Cuevas MD [address] [place] [address] PCP - General Internal Medicine 10/05/20 Team Status: Inactive Member Role Status Dates CHRISTINA MARTIN PRINTER TECHNICIAN-C Primary Care Provider, Referring Prov ider Active Benjamín Green MD Attending Provider Active Team Status: Inactive Member Role Status Dates CHRISTINA MARTIN PRINTER TECHNICIAN-C Primary Care Provider Active Benjamín Green MD Attending Provider, Referring Prov ider Active Photoengraving Sketch Maker Relationship Specialty Start Date End Date Murphy Cuevas MD [address] [place] [address] PCP - General Internal Medicine 10/05/20 Photoengraving Sketch Maker Relationship Specialty Start Date End Date Murphy Cuevas MD [address] [place] [address] PCP - General Internal Medicine 10/05/20 Photoengraving Sketch Maker Relationship Specialty Start Date End Date Murphy Cuevas MD [address] [place] [address] PCP - General Internal Medicine 10/05/20 Photoengraving Sketch Maker Relationship Specialty Start Date End Date Murphy Cuevas MD [address] [place] [address] PCP - General Internal Medicine 10/05/20 Photoengraving Sketch Maker Relationship Specialty Start Date End Date Murphy Cuevas MD [address] [place] [address] PCP - General Internal Medicine 10/05/20 Photoengraving Sketch Maker Relationship Specialty Start Date End Date Murphy Cuevas MD [address] [place] [address] PCP - General Internal Medicine 10/05/20 Photoengraving Sketch Maker Relationship Specialty Start Date End Date Murphy Cuevas MD [address] [place] [address] PCP - General Internal Medicine 10/05/20 Photoengraving Sketch Maker Relationship Specialty Start Date End Date Murphy Cuevas MD [address] [place] [address] PCP - General Internal Medicine 10/05/20 Photoengraving Sketch Maker Relationship Specialty Start Date End Date Murphy Cuevas MD [address] [place] [address] PCP - General Internal Medicine 10/05/20 Photoengraving Sketch Maker Relationship Specialty Start Date End Date Murphy Cuevas MD [address] [place] [address] PCP - General Internal Medicine 10/05/20 Photoengraving Sketch Maker Relationship Specialty Start Date End Date Murphy Cuevas MD [address] [place] [address] PCP - General Internal Medicine 10/05/20 Photoengraving Sketch Maker Relationship Specialty Start Date End Date Murphy Cuevas MD [address] [place] [address] PCP - General Internal Medicine 10/05/20 Photoengraving Sketch Maker Relationship Specialty Start Date End Date Murphy Cuevas MD [address] [place] [address] PCP - General Internal Medicine 10/05/20 Photoengraving Sketch Maker Relationship Specialty Start Date End Date Murphy Cuevas MD [address] [place] [address] PCP - General Internal Medicine 10/05/20 Team Status: Inactive Member Role Status Dates NANO BURLESON Primary Care Provider Active St art: July 04, 2024 End: July 04, 2024 NANO BURLESON Referring Provider Active Start : July 04, 2024 End: July 04, 2024 NANO Munson Attending Provider Active Start: July 04, 2024 End: July 04, 2024 Team Status: Inactive Member Role Status Dates NANO BURLESON Primary Care Provider Active St art: September 13, 2024 End: September 13, 2024 CHRISTINA OLDER , PRINTER TECHNICIAN-C Referring Provider Active Start : September 13, 2024 End: September 13, 2024 Melba Pinon NP-C Attending Provider Active Start: September 13, 2024 End: September 13, 2024 Team Status: Inactive Member Role Status Dates CHRISTINA MARTIN PRINTER TECHNICIAN-C Primary Care Provider Active St art: October 14, 2024 End: October 14, 2024 Melba Pinon NP-C Attending Provider Active Start: October 14, 2024 End: October 14, 2024 Melba Pinon PRINTER TECHNICIAN-C Referring Provider Active Start: October 14, 2024 End: October 14, 2024 Team Status: Inactive Member Role Status Dates CHRISTINA MARTIN PRINTER TECHNICIAN-C Primary Care Provider Active St art: October 24, 2024 End: October 24, 2024 CHRISTINA MARTIN PRINTER TECHNICIAN-C Referring Provider Active Start : October 24, 2024 End: October 24, 2024 Melba Pinon NP-C Attending Provider Active Start: October 24, 2024 End: October 24, 2024 Photoengraving Sketch Maker Relationship Specialty Start Date End Date Murphy Cuevas MD [address] [place] [address] PCP - General Internal Medicine 10/05/20 Christina Martin APRN.CNP [address] [place] [address] Trim Stencil Maker Internal Medicine 04/24/24 Team Status: Inactive Member Role Status Dates CHRISTINA MARTIN PRINTER TECHNICIAN-C Primary Care Provider Active St art: November 08, 2024 End: November 08, 2024 CHRISTINA MARTIN PRINTER TECHNICIAN-C Referring Provider Active Start : November 08, 2024 End: November 08, 2024 Dr. Dhiraj King DO Attending Provider Active Start: November 08, 2024 End: November 08, 2024 Team Status: Active Member Role Status Dates CHRISTINA MARTIN PRINTER TECHNICIAN-C Primary Care Provider Active St art: November 08, 2024 CHRISTINA MARTIN , PRINTER TECHNICIAN-C Referring Provider Active Start : November 08, 2024 Dr. Dhiraj King DO Attending Provider Active Start: November 08, 2024 Dr. Dhiraj King , Other Provider Active St art: November 08, 2024 Team Status: Active Member Role/Relationship Status Dates CHRISTINA OLDER , PRINTER TECHNICIAN-C Primary Care Provider Active Team Status: Inactive Member Role/Relationship Status Dates CHRISTINA OLDER , PRINTER TECHNICIAN-C Primary Care Provider Active St art: September 13, 2024 End: September 13, 2024 CHRISTINA OLDER , PRINTER TECHNICIAN-C Referring Provider Active Start : September 13, 2024 End: September 13, 2024 Melba Pinon PRINTER TECHNICIAN-C Attending Provider Active Start: September 13, 2024 End: September 13, 2024 Team Status: Inactive Member Role/Relationship Status Dates CHRISTINA OLDER , PRINTER TECHNICIAN-C Primary Care Provider Active St art: October 14, 2024 End: October 14, 2024 Melba Pinon PRINTER TECHNICIAN-C Attending Provider Active Start: October 14, 2024 End: October 14, 2024 Melba Pinon PRINTER TECHNICIAN-C Referring Provider Active Start: October 14, 2024 End: October 14, 2024 Team Status: Inactive Member Role/Relationship Status Dates CHRISTINA OLDER , PRINTER TECHNICIAN-C Primary Care Provider Active St art: October 24, 2024 End: October 24, 2024 CHRISTINA OLDER , PRINTER TECHNICIAN-C Referring Provider Active Start : October 24, 2024 End: October 24, 2024 Melba Pinon PRINTER TECHNICIAN-C Attending Provider Active Start: October 24, 2024 End: October 24, 2024 Team Status: Inactive Member Role/Relationship Status Dates CHRISTINA OLDER , PRINTER TECHNICIAN-C Primary Care Provider Active St art: November 08, 2024 End: November 08, 2024 CHRISTINA OLDER , PRINTER TECHNICIAN-C Referring Provider Active Start : November 08, 2024 End: November 08, 2024 Dr. Dhiraj King DO Attending Provider Active Start: November 08, 2024 End: November 08, 2024 Team Status: Active Member Role/Relationship Status Dates CHRISTINA OLDER , PRINTER TECHNICIAN-C Primary Care Provider Active St art: November 08, 2024 CHRISTINA OLDER , PRINTER TECHNICIAN-C Referring Provider Active Start : November 08, 2024 Dr. Dhiraj King DO Attending Provider Active Start: November 08, 2024 Dr. Dhiraj King DO Other Provider Active St art: November 08, 2024 Team Status: Inactive Member Role/Relationship Status Dates CHRISTINA MARTIN PRINTER TECHNICIAN-C Primary Care Provider Active St art: December 03, 2024 End: December 03, 2024 Melba Pinon PRINTER TECHNICIAN-C Attending Provider Active Start: December 03, 2024 End: December 03, 2024 Melba Pinon PRINTER TECHNICIAN-C Referring Provider Active Start: December 03, 2024 End: December 03, 2024 Team Status: Inactive Member Role/Relationship Status Dates CHRISTINA MARTIN PRINTER TECHNICIAN-C Primary Care Provider Active St art: December 15, 2024 End: December 15, 2024 CHRISTINA MARTIN , PRINTER TECHNICIAN-C Referring Provider Active Start : December 15, 2024 End: December 15, 2024 Melba Pinon PRINTER TECHNICIAN-C Attending Provider Active Start: December 15, 2024 End: December 15, 2024 Team Status: Inactive Member Role/Relationship Status Dates CHRISTINA MARTIN , PRINTER TECHNICIAN-C Primary Care Provider Active St art: December 16, 2024 End: December 16, 2024 Melba Pinon PRINTER TECHNICIAN-C Attending Provider Active Start: December 16, 2024 End: December 16, 2024 Melba Pinon PRINTER TECHNICIAN-C Referring Provider Active Start: December 16, 2024 End: December 16, 2024 Team Status: Inactive Member Role/Relationship Status Dates CHRISTINA MARTIN PRINTER TECHNICIAN-C Primary Care Provider Active St art: December 29, 2024 End: December 29, 2024 CHRISTINA MARTIN PRINTER TECHNICIAN-C Referring Provider Active Start : December 29, 2024 End: December 29, 2024 Melba Pinon PRINTER TECHNICIAN-C Attending Provider Active Start: December 29, 2024 End: December 29, 2024 Photoengraving Sketch Maker Relationship Specialty Start Date End Date Murphy Cuevas MD [address] [place] [address] PCP - General Internal Medicine 10/05/20 Christina Martin APRN.CNP [address] [place] [address] Trim Stencil Maker Internal Medicine 04/24/24 Photoengraving Sketch Maker Relationship Specialty Start Date End Date Murphy Cuevas MD [address] [place] [address] PCP - General Internal Medicine 10/05/20 Christina Martin APRN.IMMIGRATION CONSULTANT [address] [facility] [place] [address] Trim Stencil Maker Internal Medicine 04/24/24 Photoengraving Sketch Maker Relationship Specialty Start Date End Date Murphy Cuevas MD [address] [facility], [place] [id number] PCP - General Internal Medicine 10/05/20 Christina Martin APRN.IMMIGRATION CONSULTANT [address] [facility] [place] [address] Trim Stencil Maker Internal Medicine 04/24/24 Team Status: Active Member Role/Relationship Status Dates CHRISTINA MARTIN , PRINTER TECHNICIAN-C Primary care physician Active Team Status: Inactive Member Role/Relationship Status Dates CHRISTINA MARTIN , PRINTER TECHNICIAN-C Primary care physician Active S tart: October 14, 2024 End: October 14, 2024 Melba Pinon NP-C Attending physician Active Start: October 14, 2024 End: October 14, 2024 Melba Pinon NP-C Referring Provider Active Start: October 14, 2024 End: October 14, 2024 Team Status: Inactive Member Role/Relationship Status Dates CHRISTINA MARTIN PRINTER TECHNICIAN-C Primary care physician Active S tart: October 24, 2024 End: October 24, 2024 CHRISTINA MARTIN , PRINTER TECHNICIAN-C Referring Provider Active Start : October 24, 2024 End: October 24, 2024 Melba Pinon NP-[place] Attending physician Active Start: October 24, 2024 End: October 24, 2024 Team Status: Inactive Member Role/Relationship Status Dates CHRISTINA MARTIN , PRINTER TECHNICIAN-C Primary care physician Active S tart: November 08, 2024 End: November 08, 2024 CHRISTINA MARTIN PRINTER TECHNICIAN-C Referring Provider Active Start : November 08, 2024 End: November 08, 2024 Dr. Dhiraj King DO Attending physician Active Start: November 08, 2024 End: November 08, 2024 Team Status: Active Member Role/Relationship Status Dates CHRISTINA OLDER , PRINTER TECHNICIAN-C Primary care physician Active S tart: November 08, 2024 CHRISTINA OLDER , PRINTER TECHNICIAN-C Referring Provider Active Start : November 08, 2024 Dr. Dhiraj King DO Attending physician Active Start: November 08, 2024 Dr. Dhiraj King DO Nurse Practitioner Active Start: November 08, 2024 Team Status: Inactive Member Role/Relationship Status Dates CHRISTINA MARTIN , PRINTER TECHNICIAN-C Primary care physician Active S tart: December 03, 2024 End: December 03, 2024 Melba Pinon NP-C Attending physician Active Start: December 03, 2024 End: December 03, 2024 Melba Pinon PRINTER TECHNICIAN-C Referring Provider Active Start: December 03, 2024 End: December 03, 2024 Team Status: Inactive Member Role/Relationship Status Dates CHRISTINA OLDER , PRINTER TECHNICIAN-C Primary care physician Active S tart: December 15, 2024 End: December 15, 2024 CHRISTINA MARTIN , PRINTER TECHNICIAN-C Referring Provider Active Start : December 15, 2024 End: December 15, 2024 Melba Pinon NP-C Attending physician Active Start: December 15, 2024 End: December 15, 2024 Team Status: Inactive Member Role/Relationship Status Dates CHRISTINA OLDER , PRINTER TECHNICIAN-C Primary care physician Active S tart: December 16, 2024 End: December 16, 2024 Melba Pinon PRINTER TECHNICIAN-C Attending physician Active Start: December 16, 2024 End: December 16, 2024 Melba Pinon PRINTER TECHNICIAN-C Referring Provider Active Start: December 16, 2024 End: December 16, 2024 Team Status: Inactive Member Role/Relationship Status Dates CHRISTINA OLDER , PRINTER TECHNICIAN-C Primary care physician Active S tart: December 29, 2024 End: December 29, 2024 CHRISTINA OLDER , PRINTER TECHNICIAN-C Referring Provider Active Start : December 29, 2024 End: December 29, 2024 Melba Pinon PRINTER TECHNICIAN-C Attending physician Active Start: December 29, 2024 End: December 29, 2024 Team Status: Active Member Role/Relationship Status Dates CHRISTINA ABBY MARTIN-C Primary care physician Active S tart: January 25, 2025 NANO Munson Attending physician Active Start: January 25, 2025 NANO Munson Referring Provider Active Start: January 25, 2025 Team Status: Inactive Member Role/Relationship Status Dates CHRISTINA TALYA PRINTER TECHNICIAN-C Primary care physician Active S tart: February 02, 2025 End: February 02, 2025 CHRISTINA ABBY MARTIN-C Referring Provider Active Start : February 02, 2025 End: February 02, 2025 Melba Pinon NP-[place] Attending physician Active Start: February 02, 2025 [...] section and content) DATE CREATED AUTHOR 10/30/2023 [facility] DATE CREATED AUTHOR AUTHOR'S ORGANIZ ATION 01/20/2025 [facility] DATE CREATED AUTHOR AUTHOR'S ORGANIZ ATION 02/17/2025 [facility] FOR RECORDS PERTAINING TO PATIENTS [...] BE BASED ON THE PRIMARY CLINICAL RECORDS. [employer] provides no warranty or guarantee of the accuracy or completeness of information in this document.
== END | disposition home or self-care (01) ==
LOC: NM 07:12
PROVIDERS: PCP Nurse Practitioner; Referring Provider Nurse Practitioner Acute Care; Visit Provider Nurse Practitioner Acute Care
DX: R10.33 Periumbilical pain (principal); K22.70 Barrett's esophagus without dysplasia; K29.40 Chronic atrophic gastritis without bleeding; K59.02 Outlet dysfunction constipation; R68.81 Early satiety
CPT/HCPCS: 78264; A9541